=== PATIENT | male | born 2000 | race Two or more races ===

== ENCOUNTER 2024-12-17 11:59 | Emergency (ER) | payer OTHER ==
[~2024-12-17] VITALS: Ht 165.1 cm; Wt 128.0 kg
[2024-12-17 12:08] VITALS: TEMP 98.1
--- NOTE | 2024-12-17 12:39 | ED.PDOC ---
HPI (NEURO) HPI Comments 24 year old male with a Hx of Seizures was BIBA for the c/c of a Seizure. EMS states that pt resides in rehab home and seen by staff having seizure like activity. 5mg Versed given IM by EMS in home, no oral trauma or incontinence noted. Pt has a Hx of Drug use. No other associated symptoms, modifiers, recent injuries or sick contacts present at this time. Chief Complaint: Seizure Time Seen by MD: 12:34 Primary Care Provider: UNKNOWN Reviewed Notes: Nurses Notes, Behavioral Health Professional Notes, Medications, Allergies Information Source: Patient, Emergency Med Personnel Mode of Arrival: EMS Severity: Moderate Headache Severity: Moderate Timing: Minutes Duration: Since onset, Minutes Prehospital treatment: Treatment Seizure Quality: Shaking Headache Quality: Other Headache Location: Generalized Seizure Location: Generalized Onset: At rest Circumstances: Spontaneous Symptoms: Faintness Before: Normal During: Awake After: Confusion History of: Substance abuse Modifying factors: Nothing Associated Signs and Symptoms: None Past Medical History PAST MEDICAL HISTORY: Seizures, Denies Surgical History: Unknown Family History Family History: Unknown Social History Smoker: Non-Smoker Alcohol: Denies ETOH Use Drugs: Denies Drug Use Lives In: Home Constitutional: denies: chills, diaphoresis, fatigue, fever, malaise, sweats, weakness, others EENTM: denies: blurred vision, double vision, ear bleeding, ear discharge, ear drainage, ear pain, ear ringing, eye pain, eye redness, hearing loss, mouth pain, mouth swelling, nasal discharge, nose bleeding, nose congestion, nose pain, photophobia, tearing, throat pain, throat swelling, voice changes, others Respiratory: denies: cough, hemoptysis, orthopnea, SOB at rest, shortness of breath, SOB with excertion, stridor, wheezing, others Cardiovascular: denies: chest pain, dizzy spells, diaphoresis, Dyspnea on exertion, edema, irregular heart beat, left arm pain, lightheadedness, palpitations, PND, syncope, others Gastrointestinal: denies: abdomen distended, abdominal pain, blood streaked bowels, constipated, diarrhea, dysphagia, difficulty swallowing, hematemesis, melena, nausea, poor appetite, poor fluid intake, rectal bleeding, rectal pain, vomiting, others Genitourinary: denies: burning, dysuria, flank pain, frequency, hematuria, incontinence, penile discharge, penile sore, pain, testicle pain, testicle swelling, urgency, others Neurological: reports: seizure; denies: dizziness, fainting, headache, left sided numbness, left sided weakness, numbness, paresthesia, pre-existing deficit, right sided numbness, right sided weakness, speech problems, tingling, tremors, weakness, others Musculoskeletal: denies: back pain, gout, joint pain, joint swelling, muscle pain, muscle stiffness, neck pain, others Integumetry: denies: bruises, change in color, change in hair/nails, dryness, laceration, lesions, lumps, rash, wounds, others Allergic/Immunocompromised: denies: Difficulty Healing, Frequent Infections, Hives, Itching, others Hematologic/Lymphatic: denies: anemia, blood clots, easy bleeding, easy bruising, swollen glands, others Endocrine: denies: excessive hunger, excessive sweating, excessive thirst, excessive urination, flushing, intolerance to cold, intolerance to heat, unexplained weight gain, unexplained weight loss, others Psychiatric: denies: anxiety, bipolar disorder, depression, hopeless, panic disorder, schizophrenia, sleepless, suicidal, others All Other Systems: Reviewed and Negative Physical Exam General Appearance: Moderate Distress, Normal HEENT: Normal ENT Inspection, Pharynx Normal, TMs Normal Neck: Full Range of Motion, Non-Tender, Normal, Normal Inspection Respiratory: Chest Non-Tender, Lungs Clear, No Accessory Muscle Use, No Respiratory Distress, Normal Breath Sounds Cardiovascular: No Edema, No JVD, No Murmur, No Gallop, Normal Peripheral Pulses, Regular Rate/Rhythm Breast Exam: Deferred Gastrointestinal: No Organomegaly, Non Tender, No Pulsatile Mass, Normal Bowel Sounds, Soft Genitalia: Deferred Pelvic: Deferred Rectal: Deferred Extremities: No calf tenderness, Normal capillary refill, Normal inspection, Normal range of motion, Non-tender, No pedal edema Musculoskeletal : Apperance: Normal 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 Was a procedure done?: No Differential Diagnosis (SZ) Seizure: Hyperventilation, Psychogenic Seizure, Alcohol Withdrawl, Closed Head Injury, CVA/TIA, Hypocalcemia, Hypoglycemia, Hyponatremia, Idiopathic, Syncope, Encephalopathy X-Ray, Labs, Meds, VS Vital Signs Date Time Temp Pulse Resp B/P (MAP) Pulse Ox O2 Delivery O2 Flow Rate FiO2 12/17/24 15:00 71 12 151/84 (106) 94 12/17/24 14:00 60 16 132/67 (88) 97 12/17/24 13:00 66 16 95 Room Air* 0 21 12/17/24 12:20 67 15 124/66 (85) 92 12/17/24 12:08 98.1 67 18 110/66 (81) 95 98.1 Lab Test 12/17/24 12:58 Range/Units White Blood Count 6.8 4.4-10.8 10^3/uL Red Blood Count 4.48 L 4.5-5.90 10^6/uL Hemoglobin 13.8 13.5-17.5 g/dL Hematocrit 39.8 L 41.0-53.0 % Mean Corpuscular Volume 89.0 80.0-100.0 fL Mean Corpuscular Hemoglobin 30.8 28.0-32.0 pg Mean Corpuscular Hemoglobin Concent 34.6 32.0-36.0 g/dL Red Cell Distribution Width 15.6 H 11.8-14.3 % Platelet Count 267 140-450 10^3/uL Mean Platelet Volume 8.6 6.9-10.8 fL Neutrophils (%) (Auto) 66.6 37.0-80.0 % Lymphocytes (%) (Auto) 23.0 10.0-50.0 % Monocytes (%) (Auto) 8.1 0.0-12.0 % Eosinophils (%) (Auto) 1.8 0.0-7.0 % Basophils (%) (Auto) 0.5 0.0-2.0 % Neutrophils # (Auto) 4.5 1.6-8.6 10 ^3/uL Lymphocytes # (Auto) 1.6 0.4-5.4 10 ^3/uL Monocytes # (Auto) 0.6 0-1.3 10 ^3/uL Eosinophils # (Auto) 0.1 0-0.8 10 ^3/uL Basophils # (Auto) 0 0-0.2 10 ^3/uL Nucleated Red Blood Cells 0.2 % Sodium Level 141 136-145 mmol/L Potassium Level 3.5 3.5-5.1 mmol/L Chloride Level 104 98-107 mmol/L Carbon Dioxide Level 27 20-31 mmol/L Anion Gap 10 5-15 Blood Urea Nitrogen 8 L 9-23 mg/dL Creatinine 0.51 L 0.700-1.30 mg/dL Glomerular Filtration Rate Calc 144 >90 mL/min BUN/Creatinine Ratio 15.7 10.0-20.0 Serum Glucose 82 74-106 mg/dL Calcium Level 9.8 8.7-10.4 mg/dL Current Medications Medications (Trade) Dose Ordered Sig/Rick Route Start Time Stop Time Status Last Admin Sodium Chloride 1,000 ml @ 1,000 mls/hr Q1H ONCE IV 12/17/24 12:45 12/17/24 13:44 DC 12/17/24 12:54 Patient alert. Was given Versed for seizure. Vitals stable. Establish intravenous access. Was given fluids. WBC within normal limits. Hemoglobin within normal limits. Physical examination pristine after hour visit here. No oral trauma. Physical examination is pristine. No trauma. Explained to the patient. Was told to follow up with his primary care physician. Was told to come back if there is any problem. Time of 1ST Reevaluation: 13:05 Reevaluation 1ST: Unchanged Time of 2ND Reevaluation: 17:46 Reevaluation 2ND: Improved Patient Education/Counseling: Diagnosis, Treatment, Need For Follow Up Family Education/Counseling: No Family Present Departure 1 Departure Time of Disposition: 17:47 Impression: Primary Impression: Metabolic encephalopathy Additional Impression: Seizure Disposition: 01 HOME / SELF CARE / HOMELESS Condition: Good Discharged With: Self Critical Care Note Critical Care Time?: No Stability Stability form required: No Heart Score Heart Score: Heart Score Response (Comments) Value History N/A 0 EKG N/A 0 Age N/A 0 Risk Factors N/A 0 Troponin N/A 0 Total 0 I personally scribed for KENISHA CAROLINA MD ([email or web address]) on 12/17/24 at 12:39. Electronically submitted by Felix Mitchell ([email or web address]). KENISHA CAROLINA MD Dec 17, 2024 12:39
[2024-12-17] MEDS: SODIUM CHLORIDE 0.9% 1,000 ML IV ONE (12:54)
[2024-12-17 13:00] VITALS: PULSE 66; RESP 16; O2SAT 95
[2024-12-17 13:19] LABS: Hematocrit 39.8 % (41.0-53.0); Hemoglobin 13.8 g/dL (13.5-17.5); Mean Corpuscular Hemoglobin 30.8 pg (28.0-32.0); Mean Corpuscular Volume 89.0 fL (80.0-100.0); Nucleated Red Blood Cells % 0.2 %
[2024-12-17 13:30] LABS: Chloride 104 mmol/L (98-107); Potassium 3.5 mmol/L (3.5-5.1); Sodium 141 mmol/L (136-145)
[2024-12-17 13:31] LABS: Anion Gap 10 (5-15); Calcium 9.8 mg/dL (8.7-10.4); Carbon Dioxide 27 mmol/L (20-31)
[2024-12-17 13:36] LABS: BUN/Creatinine Ratio 15.7 (10.0-20.0); Glucose 82 mg/dL (74-106)
[2024-12-17 13:37] LABS: Blood Urea Nitrogen 8 mg/dL (9-23)
[2024-12-17 15:00] VITALS: BP 151/84
[2024-12-17 17:51] VITALS: PULSE 76; RESP 19; O2SAT 95
[2024-12-18] MEDS ORDERED: GAB100C PO (10:43)
[2024-12-18] MEDS ORDERED: ESCI1TAB36 PO (10:43)
[2024-12-18] MEDS ORDERED: DIVA1TAB59 PO (10:43)
[2024-12-18] MEDS ORDERED: QUET50TA27 PO (10:43)
== END 2024-12-17 18:32 | disposition home or self-care (01) ==
LOC: ER 11:59
DX: G93.41 Metabolic encephalopathy (principal); R56.9 Unspecified convulsions
CPT/HCPCS: 36415; 80048; 85025; 96360; 99285; J7030

== ENCOUNTER 2024-12-17 20:59 | Inpatient (IN) | payer OTHER ==
[~2024-12-17] VITALS: Ht 165.1 cm; Wt 117.1 kg
[2024-12-17] MEDS ORDERED: LORazepam 2MG/ML-1ML VIAL IV ONE (21:15)
[2024-12-17] MEDS ORDERED: levETIRAcetam 1000 mg/100ml 100 ML IV ONE (21:15)
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
[2024-12-17 21:37] LABS: Hematocrit 40.8 % (41.0-53.0); Hemoglobin 13.7 g/dL (13.5-17.5); Mean Corpuscular Hemoglobin 30.0 pg (28.0-32.0); Mean Corpuscular Volume 89.1 fL (80.0-100.0); Nucleated Red Blood Cells % 0.0 %
[2024-12-17 21:38] LABS: Chloride 107 mmol/L (98-107); Potassium 3.8 mmol/L (3.5-5.1); Sodium 142 mmol/L (136-145)
[2024-12-17 21:39] LABS: Anion Gap 9 (5-15); Carbon Dioxide 26 mmol/L (20-31)
[2024-12-17 21:40] LABS: Calcium 9.8 mg/dL (8.7-10.4)
[2024-12-17 21:44] LABS: BUN/Creatinine Ratio 15.2 (10.0-20.0); Blood Urea Nitrogen 10 mg/dL (9-23); Glucose 89 mg/dL (74-106)
--- NOTE | 2024-12-17 21:58 | DVH ---
Procedure: CT HEAD WITHOUT CONTRAST Study Date and Requested Time: 12/17/2024 09:24 PM History: recurrent seizures Comparison: None Dose: CTDI: 67.11 mGy DLP: 1322.26 mGycm Technique: Multiplanar images obtained through the brain without intravenous contrast. Findings: Normal brain volume and formation. No hemorrhages, masses, mass effect, midline shift, herniation or cytotoxic edema following a large v ascular territory. No intra-axial or extra-axial fluid collections. No evidence of hydrocephalus. The basal cisterns are patent. The pituitary gland, sella and parasellar regions are unremarkable. The cerebellar tonsils are in nor mal position. The cerebellum is unremarkable. Mild prominence of the superior cerebellar cistern. Pro minent cisterna magnum. The orbits and globes are unremarkable. Mucous retention cyst within the left maxillary sinus. Other byrd, the paranasal sinuses and mastoids are clear. There are no worrisome calvarial lesions. Impression: No evidence of acute intracranial abnormality. If symptoms persist, consider MRI for further evaluati on.
[2024-12-18] VITALS (24 sets, daily range): BP systolic 101–135; BP diastolic 49–86; PULSE 56–152; RESP 16–20; TEMP 97.5–98.5; O2SAT 90–100
[2024-12-18] MEDS ORDERED: DOCUSATE SOD 100 MG CAP PO PRN
[2024-12-18] MEDS ORDERED: MORPHINE SULFATE INJ 2 MG/ml SYRG IV PRN
[2024-12-18] MEDS ORDERED: ACETAMINOPHEN 325 MG TAB PO PRN
[2024-12-18] MEDS ORDERED: LORazepam 2MG/ML-1ML VIAL IV PRN
[2024-12-18] MEDS: SODIUM CHLORIDE 0.9% 1,000 ML IV SCH
[2024-12-18] MEDS ORDERED: ONDANSETRON HCL 4 MG/2 ML VIAL IV PRN
[2024-12-18] MEDS ORDERED: NITROGLYCERIN 0.4 MG SL TAB SL PRN
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
[2024-12-18] MEDS: KETOROLAC TROMETH 30 MG/ML 1ML VIAL IV ONE (01:04)
[2024-12-18 02:47] LABS: Urine Budding Yeast OCCASIONAL /hpf (None Seen); Urine Protein, UAD Negative (Negative)
[2024-12-18 03:14] LABS: Amphetamine Screen, Urine Neg (NEGATIVE); Barbiturate Scree,Urine Neg (NEGATIVE); Benzodiazephine Screen, Urine Pos (NEGATIVE); Cannabinoid Screen, Urine Neg (NEGATIVE); Cocaine Screen, Urine Neg (NEGATIVE); Opiate Scree,Urine Neg (NEGATIVE); Phencyclidine Screen, Urine Neg (NEGATIVE)
[2024-12-18] MEDS: HYDROcodone-ACET 5/325MG TAB PO PRN (04:26)
--- NOTE | 2024-12-18 06:39 | ECG ---
[facility] Test Date: 2024-12-17 Test Time: 21:10:06 Pat Name: MK ACEVEDO Department: ED Room: [address] [place] [address] Gender: M Sales Intern: LESVIA : 2000 Requested By: EFRA STEWARD Order Number: [id number] Reading MD: Chuck Guthrie Measurements Intervals [place] Rate: 83 P: 78 UT: 157 QRS: 23 QRSD: 84 T: -7 QT: 374 QTc: 440 Interpretive Statements Sinus rhythm LVH by voltage Electronically Signed On 12-23-2024 18:19:33 PDT by Chuck Guthrie Please click the below link to view image of tracing.
[2024-12-18 07:47] LABS: Hematocrit 38.7 % (41.0-53.0); Hemoglobin 13.4 g/dL (13.5-17.5); Mean Corpuscular Hemoglobin 31.0 pg (28.0-32.0); Mean Corpuscular Volume 89.3 fL (80.0-100.0); Nucleated Red Blood Cells % 0.1 %
[2024-12-18 07:53] LABS: Alanine Aminotransferase 38 U/L (7-40); Albumin 4.2 g/dL (3.2-4.8); Alkaline Phosphatase 90 U/L (46-116); Anion Gap 10 (5-15); BUN/Creatinine Ratio 19.4 (10.0-20.0); Bilirubin, Total 0.6 mg/dL (0.2-1.0); Blood Urea Nitrogen 13 mg/dL (9-23); Calcium 10.0 mg/dL (8.7-10.4); Carbon Dioxide 28 mmol/L (20-31); Chloride 106 mmol/L (98-107); Glucose 75 mg/dL (74-106); Potassium 3.8 mmol/L (3.5-5.1); Sodium 144 mmol/L (136-145); Total Protein 6.9 g/dL (5.7-8.2)
[2024-12-18] MEDS: levETIRAcetam 500 mg/100ml 100 ML IV SCH (10:09)
[2024-12-18] MEDS: LORazepam 2MG/ML-1ML VIAL IV PRN (10:25)
[2024-12-18] MEDS ORDERED: ESCI1TAB36 PO (10:43)
[2024-12-18] MEDS ORDERED: DIVA1TAB59 PO (10:43)
[2024-12-18] MEDS ORDERED: QUET50TA27 PO (10:43)
[2024-12-18] MEDS ORDERED: GAB100C PO (10:43)
[2024-12-18] MEDS: levETIRAcetam 1000 mg/100ml 100 ML IV ONE ×5 (11:03→16:27)
[2024-12-18] MEDS: LORazepam 2MG/ML-1ML VIAL ONE ×2 (11:07→18:20)
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
--- NOTE | 2024-12-18 15:47 | DVHINCON2 ---
Neuro Consultation Date of Consultation Date: 12/18/24 History of Present Illness History of Present Illness: [place] Neuro Note # Demographics Consult Type: General Neurology Patient Location: Inpatient First Name: Shane Last Name: Vicky Date of : 2000 Age: 24 Gender: Male Facility: [facility] Time of Initial Page (): 12/18/2024 15:27 Time of Return Call ( Time): 12/18/2024 15:27 # HPI History: 24yom with seizures who p/w recurrent seizures. Had 2 seizures around 10AM and just had another one. Currently pending another Keppra load. On exam, he is doing jerking on R arm. Then, afterwards, had another generalized seizure. # Exam Time of Exam (): 12/18/2024 15:34 Mental Status: - awake slightly disoriented to year, said 2023 Cranial Nerves: - extra ocular movements intact - normal Motor: - normal strength Sensory: - normal sensation # Assessment Impression: Status Epilepticus # Plan Labs: - CBC - comprehensive metabolic panel - urine drug screen - ua -Magnesium -Serum anti-seizure drug levels Imaging: (urgency: STAT): - CT Head without contrast Imaging: (urgency: routine): - MRI Brain with AND without contrast -CXR Diagnostic Test: - EEG Transfer for cEEG Medication: Initial Therapy Phase: 5-10 minutes Immediately give Lorazepam 0.1 mg/kg/dose (usually 4 mg IV over 2 mins) may repeat once in 5-10 min --- If no IV line available, then Midazolam 10 mg IM Start one of the following: - Fosphenytoin 20 mg/kg IV (max rate 150 mg/min) --- may re bolus with 10 mg PE/kg IV as needed - OR Keppra 60 mg/kg IV(max 4500 mg/dose) - OR Valproic acid 40 mg/kg IV (max 3000 mg/dose; max rate 6 mg/kg/min) (Second phase) ~10-30 minutes If seizure does not stop, start one of the following (whichever was not given previously): - Fosphenytoin 20 mg/kg IV (max rate 150 mg/min) --- may re-bolus with 10 mg PE/kg IV as needed - OR Keppra 60 mg/kg (max 4500 mg/dose) - OR Valproic acid 40 mg/kg (max 3000 mg/dose; max rate 6 mg/kg/min) - OR Vimpat 400 mg IV once over 5 min - OR Phenobarbital 20 mg/kg IV (max rate 50-75 mg/min) (Third Phase): ~ 30-60 mins Intubate and start continuous IV anesthetic with either of the following: - Midazolam~ Load 0.2mg/kg IV (max load 2mg/kg) --- Maintenance infusion 0.1- 2 mg/kg/hr - OR Propofol~ Load 1-2mg/kg IV (max load 10mg/kg) --- Maintenance infusion 2-5mg/kg/hr (< 5 mg/kg/hr if transfusing > 48hrs to avoid propofol infusion syndrome) Other: - If patient has any neurological deterioration please call me back immediately - seizure precautions - I have discussed my recommendations with the referring provider Additional Recommendations: Additional recommendations: - Fingerstick blood glucose: glucose <60 mg/dl, give 100 mg thiamine IV, then 50 ml D50W IV - Blood work: CBC, CMP, Mg, Phos, toxicology screen, anticonvulsant drug levels - Maintain NL electrolytes, euglycemia, normothermia - Avoid medications that reduce seizure threshold - Seizure precautions Disposition: admit # Logistics Attestation of consult completion: The patient is located at: [facility]. Facility staff participated in the visit. I performed this telemedicine visit from my offsite office utilizing interactive 2 way audio and visual telecommunication technology. Total time spent in telemedicine encounter: I spent 23 minutes reviewing clinical data and/or imaging, obtaining history, examining the patient, communicating with the onsite care team, and in preparation of this report. # Demographics First Name: Shane Last Name: Vicky Facility: [facility] Review of Systems Review of Systems: Review of Systems: 12 point review of systems is negative unless stated in HPI. Social History Social History: Social History: Denies alcohol, tobacco, and/or ellicit drug usage. Work - Living situation - Use of ambulatory devices - Allergies and Medications Allergies: Coded Allergies: NO KNOWN ALLERGIES (Unverified , 12/17/24) Home Meds: Reported Medications Gabapentin (Gabapentin) 100 Mg Cap, PO 12/18/24 Divalproex Sodium (Divalproex Sodium Dr) 500 Mg Tab, 1 TAB PO DAILY 12/18/24 Quetiapine Fumerate (QUETIAPINE FUMARATE) 50 Mg Tab, 1 TAB PO DAILY 12/18/24 Escitalopram Oxalate (ESCITALOPRAM OXALATE) 10 Mg Tab, 1 TAB PO DAILY 12/18/24 Current Medications: Current Medications Medications (Trade) Dose Ordered Sig/Rick Route PRN Reason Start Time Stop Time Status Last Admin Sodium Chloride 1,000 ml @ 60 mls/hr [id number] IV 12/18/24 00:00 12/18/24 00:00 Acetaminophen/ Hydrocodone Bitart ([place] 5/325MG Tab) 1 tab Q4HP PRN PO MODERATE PAIN (4-6 PAIN SCALE) 12/18/24 00:00 12/18/24 04:26 Ondansetron HCl (Zofran) 4 mg Q4HP PRN IV NAUSEA / VOMITING 12/18/24 00:00 Docusate Sodium (Colace Capsule) 100 mg BIDPRN PRN PO FOR CONSTIPATION 12/18/24 00:00 Acetaminophen (Tylenol Tablet) 650 mg Q6HP PRN PO PAIN SCALE 1-3 OR TEMP>100.4 12/18/24 00:00 Nitroglycerin (Ntrostat Sublingual) 0.4 mg Q5MINP PRN SL FOR CHEST PAIN 12/18/24 00:00 Morphine Sulfate 2 mg Q30M PRN IV FOR CHEST PAIN 12/18/24 00:00 Levetiracetam 100 ml @ 400 mls/hr BID IV 12/18/24 10:00 12/18/24 10:50 DC 12/18/24 10:09 Lorazepam (Ativan Inj) 1 mg Q2HP PRN IV SEIZURES 12/18/24 00:00 12/18/24 10:57 DC Levetiracetam 100 ml @ 400 mls/hr BID IV 12/18/24 22:00 12/18/24 10:49 DC Levetiracetam 100 ml @ 400 mls/hr BID IV 12/18/24 22:00 Lorazepam (Ativan Inj) 1 mg Q5MINP PRN IV SEIZURES 12/18/24 11:00 12/18/24 10:55 General Examination Last Vital sign Vital Signs Date Time Temp Pulse Resp B/P (MAP) Pulse Ox O2 Delivery O2 Flow Rate FiO2 12/18/24 12:30 97.9 61 17 116/52 (73) 97 97.9 12/18/24 08:30 Room Air* 0 21 General Exam: General Examination: General: No apparent distress, appears comfortable. Cooperative HEENT: Normocephalic, atraumatic. Supple neck. No oropharynx lesion or exudate noted. Extremities: No noted edema or cyanosis Skin: No noted rashes or jaundice. Neuro Exam: Neurological Examination: Mental Status: Alert and oriented to person, place, and time. Speech is fluent. No dysarthria or aphasia noted. Cranial Nerves: Pupils equally round and reactive to light. Fundoscopic examination showed sharp optic discs. Visual carrero intact. No dysconjugate gaze. Extraocular movements were intact. No ptosis on primary gaze or fatiguable ptosis was noted. Sensation intact in V1-V3 bilaterally. No facial asymmetry with symmetrical brow raise, smile, and puffing out cheeks. Hearing intact to finger rub bilaterally. Tongue midline with symmetrical palate elevation. No tongue atrophy or fasciculations noted. Intact shoulder shrug. Motor examination: Normal bulk and tone in the bilateral upper and lower extremities. No abnormal movements appreciated. Upper Extremities (Right/Left) Infraspinatus 5/5 Deltoid 5/5 Biceps 5/5 Triceps 5/5 Wrist Extension 5/5 Wrist Flexion 5/5 Finger Extension 5/5 Finger Flexion 5/5 Interosseous 5/5 ABP 5/5 Lower Extremities (Right/Left) Iliopsoas 5/5 Quadriceps 5/5 Hamstrings 5/5 Tibialis anterior 5/5 Gastrocnemius 5/5 Toe Extension 5/5 Reflexes: Jaw Jerk absent Pectoralis absent/absent Biceps 2/2 Triceps 2/2 Brachioradialis 2/2 Patellar 2/2 Ankle 2/2 Babinski's Down/Down Sensory: Upper Extremity - Intact to light touch, pinprick, vibration, and joint position. Lower Extremity - Intact to light touch, pinprick, vibration, and joint position. Coordination: Intact finger to nose and [id number] bilaterally. No dysmetria noted. Negative Romberg's. Gait: Normal stride and stance. Able to perform heel, toe, and heel-to-toe walking without difficulty. Able to squat and get up from a chair unassisted without difficulty. Labs: Laboratory Tests Test 12/17/24 21:15 12/17/24 22:08 12/17/24 23:14 12/18/24 06:07 Range/Units White Blood Count 7.0 7.3 4.4-10.8 10^3/uL Red Blood Count 4.58 4.33 L 4.5-5.90 10^6/uL Hemoglobin 13.7 13.4 L 13.5-17.5 g/dL Hematocrit 40.8 L 38.7 L 41.0-53.0 % Mean Corpuscular Volume 89.1 89.3 80.0-100.0 fL Mean Corpuscular Hemoglobin 30.0 31.0 28.0-32.0 pg Mean Corpuscular Hemoglobin Concent 33.7 34.7 32.0-36.0 g/dL Red Cell Distribution Width 15.5 H 15.5 H 11.8-14.3 % Platelet Count 279 252 140-450 10^3/uL Mean Platelet Volume 8.7 8.9 6.9-10.8 fL Neutrophils (%) (Auto) 59.9 57.6 37.0-80.0 % Lymphocytes (%) (Auto) 27.7 29.9 10.0-50.0 % Monocytes (%) (Auto) 8.4 9.5 0.0-12.0 % Eosinophils (%) (Auto) 3.1 2.5 0.0-7.0 % Basophils (%) (Auto) 0.9 0.5 0.0-2.0 % Neutrophils # (Auto) 4.2 4.2 1.6-8.6 10 ^3/uL Lymphocytes # (Auto) 1.9 2.2 0.4-5.4 10 ^3/uL Monocytes # (Auto) 0.6 0.7 0-1.3 10 ^3/uL Eosinophils # (Auto) 0.2 0.2 0-0.8 10 ^3/uL Basophils # (Auto) 0.1 0 0-0.2 10 ^3/uL Nucleated Red Blood Cells 0.0 0.1 % Sodium Level 142 144 136-145 mmol/L Potassium Level 3.8 3.8 3.5-5.1 mmol/L Chloride Level 107 106 98-107 mmol/L Carbon Dioxide Level 26 28 20-31 mmol/L Anion Gap 9 10 5-15 Blood Urea Nitrogen 10 13 9-23 mg/dL Creatinine 0.66 L 0.67 L 0.700-1.30 mg/dL Glomerular Filtration Rate Calc 133 133 >90 mL/min BUN/Creatinine Ratio 15.2 19.4 10.0-20.0 Serum Glucose 89 75 74-106 mg/dL Calcium Level 9.8 10.0 8.7-10.4 mg/dL Troponin I High Sensitivity < 3 L < 3 L </=54 ng/L Valproic Acid Level 22.1 L 50-100 ug/mL Plasma/Serum Blood Alcohol < 3.0 <10 mg/dL Urine Color Light-yellow Yellow Urine Clarity Clear Clear Urine pH 6.5 5.0-9.0 Urine Specific [place] 1.024 1.001-1.035 Urine Protein Negative Negative Urine Ketones Trace Negative Urine Blood Negative Negative /uL Urine Nitrite Negative Negative Urine Bilirubin Negative Negative Urine Urobilinogen Normal Negative mg/dL Urine Leukocyte Esterase Negative Negative /uL Urine RBC 1 0 - 3 /hpf Urine Microscopic WBC < 1 0-3 /HPF Urine Squamous Epithelial Cells Few <5 /hpf Urine Bacteria None seen None Seen /hpf Urine Yeast (Budding) Occasional None Seen /hpf Urine Glucose Normal Normal mg/dL Urine Opiates Screen Neg NEGATIVE Urine Fentanyl Screen Neg NEGATIVE Urine Barbiturates Screen Neg NEGATIVE Urine Phencyclidine Screen Neg NEGATIVE Urine Amphetamines Screen Neg NEGATIVE Urine Benzodiazepines Screen Pos NEGATIVE Urine Cocaine Screen Neg NEGATIVE Urine Cannabinoids Screen Neg NEGATIVE Total Bilirubin 0.6 0.2-1.0 mg/dL Aspartate Amino Transferase (AST) 18 13-40 U/L Alanine Aminotransferase (ALT) 38 7-40 U/L Alkaline Phosphatase 90 46-116 U/L Total Protein 6.9 5.7-8.2 g/dL Albumin 4.2 3.2-4.8 g/dL Hepatitis B Surface Antigen Pending Hepatitis C Antibody Pending Test 12/18/24 10:39 12/18/24 10:55 12/18/24 15:19 12/18/24 15:29 Range/Units POC Glucose 92 100 70-106 mg/dl Prolactin Pending Pending Sodium Level Pending Potassium Level Pending Chloride Level Pending Carbon Dioxide Level Pending Anion Gap Pending Blood Urea Nitrogen Pending Creatinine Pending Glomerular Filtration Rate Calc Pending BUN/Creatinine Ratio Pending Serum Glucose Pending Calcium Level Pending Phosphorus Level Pending Total Bilirubin Pending Aspartate Amino Transferase (AST) Pending Alanine Aminotransferase (ALT) Pending Alkaline Phosphatase Pending Lactate Dehydrogenase Pending Creatine Kinase Pending Total Protein Pending Albumin Pending Assessment/Plan Assessment and Plan:Shane Perry is a 24 year old male who presents with Plan discussed with: Patient VINCENZO WHITMAN MD Dec 18, 2024 15:47
[2024-12-18 15:58] LABS: Alanine Aminotransferase 39 U/L (7-40); Alkaline Phosphatase 98 U/L (46-116); Calcium 10.0 mg/dL (8.7-10.4)
[2024-12-18 15:59] LABS: Albumin 4.2 g/dL (3.2-4.8); Anion Gap 8 (5-15); BUN/Creatinine Ratio 16.9 (10.0-20.0); Bilirubin, Total 0.6 mg/dL (0.2-1.0); Blood Urea Nitrogen 11 mg/dL (9-23); Carbon Dioxide 26 mmol/L (20-31); Creatine Kinase IFCC 171 U/L (46-171); Glucose 76 mg/dL (74-106); Potassium 4.1 mmol/L (3.5-5.1); Sodium 142 mmol/L (136-145); Total Protein 7.0 g/dL (5.7-8.2)
[2024-12-18 16:05] LABS: Chloride 108 mmol/L (98-107)
[2024-12-18] MEDS: ETOMIDATE (2MG/ML) 20ML VIAL IV ONE (18:10)
[2024-12-18] MEDS: ROCURONIUM 10MG/ML 10ML VIAL IV ONE (18:11)
[2024-12-18] MEDS: MIDAZOLAM DRIP 50 mg/50mL 50 ML IV ONE ×2 (18:21→19:30)
[2024-12-18] MEDS: PROPOFOL 100 ML IV ONE (18:21)
[2024-12-18] MEDS: fentaNYL Drip 2500mCg/250mlNS 250 ML IV ONE (18:21)
[2024-12-18] MEDS: NOREPINEPHRINE 8 MG/250ML KIT 250 ML IV ONE (18:29)
--- NOTE | 2024-12-18 18:36 | DVHNC2 ---
Intubation Indication: Altered Mental Status, Airway Protection Prep: Preoxygenation Pretreated with: Sedation, Other Medicated with: Other Intubation Approach: Orotracheal Intubation size: cm (8) Informed consent obtained: No Risks/benefits/alt described: No Notes Procedure: Endotracheal Intubation INDICATION: Compromised airway, status epilepticus Physician: Rony Luz MD CONSENT: Emergent procedure. Implied. PROCEDURE SUMMARY: A time out was performed. My hands were washed immediately prior to the procedure. I wore a surgical cap, mask with protective eyewear, gown and gloves throughout the procedure. The patient was placed on a millwork estimator including continuous pulse oximetry. The patient received 20mg Etomidate and 50mg rocuronium for induction. Cricoid pressure was maintained from time induction agent was given to time of cuff balloon inflation. Using a MAC 4 Laryngoscope and a size 8.0 endotracheal tube with stylet, the patient was intubated on the 1 attempt. The stylet was removed and cuff balloon was inflated. Appropriate endotracheal tube position was confirmed by direct visualization of vocal cord passage, fogging of the tube, CO2 colometric indicator and symmetric breath sounds. The tube was secured at 25 cm at the lips. Post intubation chest x-ray is demonstrates the ETT approximately 4 cm above the rogers. intubated due to concern for status epilepticus despite multiple ativans push and keppra load 3.5 gram. no return to baseline for ~45min etom 40 peggy 100 intubated with video glidoscope inserted etienne 25cm only 1-2min from rogers, pull back to 22cm 8cm tube no bleeding or complications CPT Code: 65200 Date of Service: Dec 18, 2024 Billing Provider: RONY YE MD Common Visit Codes: PROCEDURE ONLY Procedure Codes: [id number] RONY YE MD Dec 18, 2024 18:36
[2024-12-18] MEDS: PROPOFOL 10 MG/ML 20 ML IV ONE (18:45)
--- NOTE | 2024-12-18 19:51 | DVH ---
EXAM: XY CHEST PORTABLE HISTORY: s/p intubation TECHNIQUE: 1 view of the chest COMPARISON: None FINDINGS/IMPRESSION: LUNGS: Low lung volumes, which cause crowding of the bronchovascular markings. In greatest interstiti al markings with elevation of the right hemidiaphragm. Correlate for underlying infiltrate versus vo lume overload. MEDIASTINUM: Unremarkable BONES: No acute osseous abnormality OTHER: Endotracheal tube 0.7 cm above the rogers. Nasogastric tube in the proximal stomach.
[2024-12-18] MEDS: fentaNYL Drip 2500mCg/250mlNS 250 ML IV SCH (20:27)
[2024-12-18] MEDS: NOREPINEPHRINE 8 MG/250ML KIT 250 ML IV SCH (20:27)
--- NOTE | 2024-12-18 20:55 | DVHNC2 ---
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 of animal killer (Yane Reynolds) Indication: Hypotension, CVP monitoring, Volume resuscitation Room prepared for procedure: Yes Product Management Analyst performed hand hygien: Yes Maximal sterile barrier precau: Mask/Eye shield, Sterile gown, Cap, Sterlie gloves, Large sterlie drape Skin Preparation: Chlorhexidine gluconate, Providine iodine Skin preparation completely dr: Yes Insertion site: Right, Internal jugular Central line catheter type: Ktr-[id number]-sot dialysis Number of lumens: 3 Central line exchanged over a: No Antiseptic ointment applied to: Yes Post Assessment: Chest X-Ray, No Pneumothorax Informed consent obtained: Yes Notes A time out was performed. My hands were washed immediately prior to the proce dure. I wore a surgical cap, mask with protective eyewear, full gown and sterile gloves throughout the procedure. The patient was placed in Trendelenburg position. LEFT / RIGHT chest region was prepped using chlorhexidine scrub and draped in sterile fashion using a full drape and sterile probe cover and sterile gel employed. The medial and lateral heads of the sternocleidomastoid muscle were identified as was the carotid pulse. The Internal Jugular vein was identified using the ultrasound. Anesthesia was achieved over the vein using 1% lidocaine. Using real-time out of plane guidance, the introducer needle was inserted into the Internal Jugular vein under direct ultrasound visualization. Venous blood was withdrawn. The syringe was removed and a guidewire was advanced into the introducer needle. The guidewire was visualized in the Internal Jugular Vein by ultrasound. A small incision was made at the skin surface with a scalpel and the introducer needle was exchanged for a dilator over the guidewire. After appropriate dilation was obtained, the dilator was exchanged over the wire for a rt central venous catheter. The wire was removed and the catheter was sutured in place at [address] A sterile sorbaview shield was placed over the catheter at the insertion site. The patient tolerated the procedure without any hemodynamic compromise. At time of procedure completion, all ports aspirated and flushed properly. Post-procedure chest x-ray is pending at this time. Estimated blood loss is less than [address] Luz Date of Service: Dec 18, 2024 Billing Provider: RONY YE MD Common Visit Codes: PROCEDURE ONLY Procedure Codes: [id number] NON-TUNNEL CV CATH YANE REYNOLDS Dec 18, 2024 20:55 RONY YE MD Jan 12, 2025 22:11
--- NOTE | 2024-12-18 21:13 | DVH ---
EXAM: XY CHEST PORTABLE CLINICAL HISTORY: CENTRAL LINE PLACEMENT TECHNIQUE: Single AP view of the chest WID: COMPARISON: XY CHEST PORTABLE on DOS: 12/18/24 FINDINGS: Lines and tubes: Endotracheal tube projects 3.9 cm above the rogers. Gastric tube in place with the t ip projecting over the gastric fundus. Right IJ central venous catheter with the tip projecting over the right atrium. Chest: The heart size and pulmonary vasculature is within normal limits. Linear patchy airspace opacities in the jleah-hvbovdg-svkl-left lungs. Limited depth of inspiration. No pneumothorax. The right costophrenic angle is not entirely included in the field of view. The osseous structures are grossly intact. IMPRESSION: Right IJ central venous catheter in place with the tip projecting over the right atrium. Endotracheal and gastric tubes remain in place. Linear patchy airspace opacities in the gjruh-ptxbvih-mhcl-left lungs which could reflect subsegmenta l atelectasis
[2024-12-18] MEDS: levETIRAcetam 1500 mg/100ml 100 ML IV SCH (21:14)
[2024-12-18] MEDS: PROPOFOL 100 ML IV SCH (21:14)
[2024-12-18 21:19] LABS: Base Excess -0.5 mmol/L (-2.0-3.0)
[2024-12-18] MEDS: MIDAZOLAM DRIP 50 mg/50mL 50 ML IV SCH (21:26)
[2024-12-18] MEDS ORDERED: levETIRAcetam 1500 mg/100ml 100 ML IV SCH (22:00)
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
[2024-12-19] VITALS (109 sets, daily range): BP systolic 97–135; BP diastolic 38–86; PULSE 52–87; RESP 13–20; TEMP 97.3–99; O2SAT 93–100
[2024-12-19 04:00] LABS: Hematocrit 37.0 % (41.0-53.0); Hemoglobin 12.7 g/dL (13.5-17.5); Mean Corpuscular Hemoglobin 30.7 pg (28.0-32.0); Mean Corpuscular Volume 89.2 fL (80.0-100.0); Nucleated Red Blood Cells % 0.2 %
[2024-12-19 04:13] LABS: Anion Gap 10 (5-15); Carbon Dioxide 27 mmol/L (20-31)
[2024-12-19 04:14] LABS: Calcium 8.9 mg/dL (8.7-10.4)
[2024-12-19 04:18] LABS: BUN/Creatinine Ratio 17.8 (10.0-20.0); Glucose 88 mg/dL (74-106)
[2024-12-19 04:20] LABS: Blood Urea Nitrogen 8 mg/dL (9-23); Chloride 109 mmol/L (98-107); Potassium 3.4 mmol/L (3.5-5.1); Sodium 146 mmol/L (136-145)
[2024-12-19 06:05] LABS: Base Excess 1.6 mmol/L (-2.0-3.0)
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
[2024-12-19] MEDS ORDERED: TPN PER PHARMACY 0 ML IV SCH (10:00)
--- NOTE | 2024-12-19 10:14 | CONS ---
Pharmacy Clinical Information: Na = 146, Cl = 109, serum glucose = 88 Consider changing IVF from NS to D5W CLAUDIA IRAHETA PHARMACIST Dec 19, 2024 10:14
[2024-12-19 10:23] LABS: Magnesium 2.0 mg/dL (1.6-2.6)
[2024-12-19 10:24] LABS: Triglycerides 440.0 mg/dL (< 150)
[2024-12-19 10:25] LABS: Albumin 3.8 g/dL (3.2-4.8); Bilirubin, Total 0.6 mg/dL (0.2-1.0)
--- NOTE | 2024-12-19 10:51 | DVH ---
XY CHEST PORTABLE, HISTORY: acute respiratory failure COMPARISON: XY CHEST PORTABLE on DOS: 12/18/24, XY CHEST PORTABLE on DOS: 12/18/24 XY CHEST PORTABLE on DOS: 12/18/24, XY CHEST PORTABLE on DOS: 12/18/24 TECHNICAL DATA: 1 view of the chest was obtained. FINDINGS: Lines and tubes: ET in the mid thoracic trachea, NG in the stomach, Right CVC in the RA. Cardiomediastinal silhouette: normal Pulmonary vasculature: normal Lung expansion: Low Lung airspace: normal Lung interstitium: normal Pleura: normal Pneumothorax: no Bones: Unremarkable Other: no IMPRESSION: Hypoexpanded lungs with similar lung aeration. ET in the mid thoracic trachea, NG in the stomach, Right CVC in the RA.
[2024-12-19] MEDS ORDERED: LISI10TA34 PO (13:08)
[2024-12-19] MEDS: ACCU-CHEK COMFORT CURVE STRIP VI SCH (13:08)
[2024-12-19] MEDS: InsuLIN REG 1unit/0.01ml Soln (100units/ml) SC SCH (13:08)
[2024-12-19] MEDS: POTASSIUM CHL 20MEQ/100ML 100 ML IV ONE (13:13)
[2024-12-19 13:15] LABS: Potassium 3.8 mmol/L (3.5-5.1)
[2024-12-19 13:16] LABS: Anion Gap 9 (5-15); Calcium 9.5 mg/dL (8.7-10.4); Carbon Dioxide 24 mmol/L (20-31)
[2024-12-19 13:21] LABS: BUN/Creatinine Ratio 14.5 (10.0-20.0); Glucose 88 mg/dL (74-106)
[2024-12-19 13:24] LABS: Blood Urea Nitrogen 8 mg/dL (9-23); Chloride 112 mmol/L (98-107); Sodium 145 mmol/L (136-145)
[2024-12-19] MEDS: NOREPINEPHRINE 8 MG/250ML KIT 250 ML IV SCH (13:54)
[2024-12-19] MEDS: ALBUTEROL SULF 2.5 MG/0.5ML(0.5%) NEB SOLN NEB SCH (18:20)
[2024-12-19] MEDS: IPRATROPIUM BROM 0.5 MG/2.5ML INH SOL NEB SCH (18:20)
[2024-12-19] MEDS: TPN PER PHARMACY IV NR (21:18)
[2024-12-20] VITALS (102 sets, daily range): BP systolic 88–128; BP diastolic 43–69; PULSE 71–116; RESP 15–30; TEMP 98.4–101.1; O2SAT 90–100
[2024-12-20 04:20] LABS: Albumin 3.6 g/dL (3.2-4.8); Anion Gap 9 (5-15); BUN/Creatinine Ratio 13.1 (10.0-20.0); Carbon Dioxide 27 mmol/L (20-31); Glucose 102 mg/dL (74-106); Magnesium 2.0 mg/dL (1.6-2.6); Potassium 3.5 mmol/L (3.5-5.1); Sodium 145 mmol/L (136-145); Total Protein 6.1 g/dL (5.7-8.2)
[2024-12-20 04:21] LABS: Bilirubin, Total 0.7 mg/dL (0.2-1.0)
[2024-12-20 04:23] LABS: Hematocrit 36.2 % (41.0-53.0); Hemoglobin 12.4 g/dL (13.5-17.5); Mean Corpuscular Hemoglobin 30.9 pg (28.0-32.0); Mean Corpuscular Volume 90.4 fL (80.0-100.0); Nucleated Red Blood Cells % 0.1 %
[2024-12-20 04:40] LABS: Alanine Aminotransferase 45 U/L (7-40); Alkaline Phosphatase 143 U/L (46-116); Blood Urea Nitrogen 8 mg/dL (9-23); Calcium 8.5 mg/dL (8.7-10.4); Chloride 109 mmol/L (98-107)
--- NOTE | 2024-12-20 04:57 | DVHPN2 ---
Progress Note - Dictate Date Seen: Dec 19, 2024 Medical Necessity Reason Pt with a Central, PICC or Fol: Yes The following are medically ne: Reed Catheter Reason for reed catheter: Strict I&O Subjective Patient seen and examined at bedside. Sedated, intubated on mechanical ventilator. Overnight events reviewed. vital signs Vital Sign Date Time Temp Pulse Resp B/P (MAP) Pulse Ox O2 Delivery O2 Flow Rate FiO2 12/20/24 04:17 86 18 105/49 (67) 97 35 12/20/24 04:00 Mechanical Ventilator+ 12/20/24 02:45 99.0 210.2 12/18/24 08:30 0 Total Intake and Output 12/19/24 12/19/24 12/20/24 15:00 23:00 07:00 Intake Total 849.984 ml 1119.984 ml 779.992 ml Output Total 750 ml Balance 849.984 ml 369.984 ml 779.992 ml medications Current Medications Medications Dose Ordered Sig/Rick Route Start Time Stop Time Status Last Admin Dose Admin Sodium Chloride 1,000 ml @ 60 mls/hr [id number] IV 12/18/24 00:00 12/20/24 02:41 60 MLS/HR Acetaminophen/ Hydrocodone Bitart 1 tab Q4HP PRN PO 12/18/24 00:00 12/18/24 04:26 1 TAB Ondansetron HCl 4 mg Q4HP PRN IV 12/18/24 00:00 Docusate Sodium 100 mg BIDPRN PRN PO 12/18/24 00:00 Acetaminophen 650 mg Q6HP PRN PO 12/18/24 00:00 Nitroglycerin 0.4 mg Q5MINP PRN SL 12/18/24 00:00 Morphine Sulfate 2 mg Q30M PRN IV 12/18/24 00:00 Levetiracetam 100 ml @ 400 mls/hr BID IV 12/18/24 22:00 12/19/24 21:15 400 MLS/HR Lorazepam 1 mg Q5MINP PRN IV 12/18/24 11:00 12/18/24 17:40 1 MG Propofol 100 ml @ 3.906 mls/ hr Q24H IV 12/18/24 18:15 12/20/24 03:27 31.248 MLS/HR Midazolam HCl 50 ml @ 1 mls/hr Q24H IV 12/18/24 21:15 12/20/24 03:27 15 MLS/HR Fentanyl Citrate 250 ml @ 2.5 mls/hr Q24H IV 12/18/24 23:15 12/19/24 23:07 25 MLS/HR Amino Acids 0 ml @ 0 mls/hr PER PHARMACY IV 12/19/24 10:00 Diagnostic Test (Pha) 1 strip Q6HR 12/19/24 12:00 12/19/24 23:08 1 STRIP Insulin Human Regular FOLLOW SLIDING SCALE Q6HR SC 12/19/24 12:00 Dextrose 50 ml UD IV 12/19/24 10:00 Potassium Chloride 20 meq/ Potassium Phosphate 22 meq/ Calcium Gluconate 2.3 meq/Magnesium Sulfate 8 meq/ Multivitamins 10 ml/Chromium/ Copper/Manganese/ Zinc 1 ml/Amino Acids/Dextrose/ Purified Water 1,432.9462 ml @ 60 mls/hr [id number] IV 12/19/24 22:00 12/20/24 21:59 12/19/24 21:18 60 MLS/HR Albuterol 2.5 mg Q6HR NEB 12/19/24 18:00 12/20/24 00:27 2.5 MG Ipratropium [place] 0.5 mg Q6HR NEB 12/19/24 18:00 12/20/24 00:27 0.5 MG Norepinephrine Bitartrate 250 ml @ 3.75 mls/hr Q24H IV 12/19/24 13:30 12/20/24 02:41 3.75 MLS/HR objective Gen.: Patient lying in bed in medical ICU. Sedated, intubated on mechanical ventilator. Head: Normocephalic, atraumatic. Eyes: PERRLA. Ears: Normal external anatomy. Throat: Endotracheal tube and orogastric tube in place. Neck: Supple, trachea midline. Chest: Transmitted breath sounds bilaterally. Decreased air entry bilaterally. No wheezing. Bibasilar crackles. Cardiovascular: Positive S1, positive S2. Regular rate and rhythm. Abdomen: Positive bowel sounds in all 4 quadrants. Soft, nontender, nondistended. : Reed in place. Normal external genitalia. Rectal: Deferred. Skin: Warm, dry. Intact. Extremities: 2+ radial pulses bilaterally. No lower extremity edema. Neuro: Sedated. laboratory and microbiology Laboratory Tests 12/20/24 03:15 12/20/24 03:10 Test 12/20/24 03:10 Range/Units Serum Glucose 102 74-106 mg/dL Assessment/Plan Impression: Acute hypoxic respiratory failure On mechanical ventilator Seizures Morbid obesity, BMI 49.2 Plan: s/p intubation on mechanical ventilator. CXR image and report reviewed. Devices in place. Hypoexpansion of lungs noted. ABG reviewed, notable for alkalemia. Taper RR to 18. On AC mode; RR 20 -->18, VT 550, PEEP 5, FiO2 100% Titrate FIO2 to keep O2 saturation above 90%. VAP bundle. Daily ABG and CXR while intubated Sedate for ventilator synchrony - on Fentanyl, Versed, Propofol. Start bronchodilators q.6 hours. Antiepileptic - Keppra Follow up Neurology recs On pressors for hemodynamic support Levophed at 2 mcg/min Titrate to keep mean arterial pressure greater than 65 mmHg. Monitor renal function Monitor electrolytes. Supplement as necessary. Monitor ins and outs. Potassium supplementation, magnesium at goal Maintain euvolemia. Diet and lifestyle modifications for weight reduction Morbid obesity - complicates all care GI prophylaxis. DVT prophylaxis. Prognosis: Poor given patient's multiple co-morbidities. Condition: Critical Rest of plan per hospitalist and other consultants. A total of 35 minutes of critical care time was spent reviewing the patient record, examining the patient, making a diagnostic and therapeutic plan, discussing this plan with the medical personnel, following up on diagnostic studies and following the patient for clinical stability excluding any and all procedures. At least 50% of this time was spent in direct, [id number]-by-mzsl contact. Thank you, ANNALISE Wall, for allowing me to participate in this patient's care. Further recommendations will depend on the patient's clinical course. Please do not hesitate to contact me if you have any questions or concerns. This medical document was created using an electronic medical record system with [employer] system. Although these documentations are being carefully reviewed, there may still be some phonetic and typographical changes. The errors are purely typographical, due to imperfection on the software program, and do not reflect any compromise in the patient's medical care. Plan discussed with: Other (RN Gia) Critical Care Time(min): 35 BRONSON SY MD Dec 20, 2024 04:57
--- NOTE | 2024-12-20 04:59 | DVH ---
CHEST RADIOGRAPH Indication: INTUBATED Technique: Single frontal view of the chest was obtained Comparison: XY CHEST PORTABLE on DOS: 12/19/24 FINDINGS: Lines and Tubes: The endotracheal tube terminates at the rogers. Repositioning is recommended. Righ t central venous catheter terminates in the right atrium. The enteric tube courses below the left hem idiaphragm and the tip extends outside the field of view. Lungs: Lungs are hypoinflated with bibasilar airspace disease. Pleura: No effusion. No pneumothorax. Cardiomediastinal contours: Stable cardiomegaly. Bones: No acute osseous abnormality. IMPRESSION: 1. Endotracheal tube terminates at the level of the rogers and repositioning is recommended. 2. Hypoinflated lungs with bibasilar atelectasis.
[2024-12-20 07:53] LABS: Base Excess -2.5 mmol/L (-2.0-3.0)
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
[2024-12-20] MEDS ORDERED: LORazepam 2MG/ML-1ML VIAL IV PRN (09:45)
[2024-12-20 10:16] LABS: Hepatitis B Surface Antigen Negative (Negative)
[2024-12-20 10:39] LABS: Hepatitis C Antibody Negative (Negative)
--- NOTE | 2024-12-20 11:39 | DVHPNRES ---
Progress Note Date Seen: Dec 20, 2024 Resident Creating Document: STUART SAGASTUME RESIDENT Medical Necessity Reason Pt with a Central, PICC or Fol: Yes The following are medically ne: Reed Catheter Reason for reed catheter: Strict I&O Subjective Review of Systems Patient is a 24-year-old male with past medical history of hypertension, chronic pain, substance abuse disorder, who was brought in due to new onset seizures. Patient is sedated and mechanically ventilated, history was obtained from patient's mother Ms. Sabillon via telephone. According to the patient's mother, patient has been abusing laughing gas heavily for some time, patient went to by laughing gas on Friday12/15/2024 and used it with his friend where according to the friend patient consumed most of the canister. Patient's mom took him to the rehab on 12/16/2024 where he had a seizure and was taken to the hospital and subsequently discharged back to the rehab facility. On patient again started having seizures which is when he was taken to the hospital again and was subsequently intubated. Patient reported saying he is prescribed Depakote but he has been noncompliant, serum valproic levels were below therapeutic range at 22.1 Past surgical history: Denies Smoking: Uses tobacco vaporizer pen heavily daily Alcohol: Remote history of heavy alcohol use Drugs: Mother is unsure, however, notes he may have history of cocaine abuse and MDMA abuse Previously patient was living in a rented home with a roommate, for the last 1 week was living with mother. Review of systems could not be completed due to patient being sedated and mechanically ventilated. Objective vital signs Vital Sign Date Time Temp Pulse Resp B/P (MAP) Pulse Ox O2 Delivery O2 Flow Rate FiO2 12/20/24 11:00 100.6 100 18 104/56 (72) 99 213.1 12/20/24 11:00 50 12/20/24 09:56 Mechanical Ventilator+ 12/18/24 08:30 0 Total Intake and Output 12/19/24 12/19/24 12/20/24 15:00 23:00 07:00 Intake Total 849.984 ml 1119.984 ml 1597.826 ml Output Total 750 ml 1500 ml Balance 849.984 ml 369.984 ml 97.826 ml medications Current Medications Medications Dose Ordered Sig/Rick Route Start Time Stop Time Status Last Admin Dose Admin Sodium Chloride 1,000 ml @ 60 mls/hr [id number] IV 12/18/24 00:00 12/20/24 02:41 60 MLS/HR Ondansetron HCl 4 mg Q4HP PRN IV 12/18/24 00:00 Docusate Sodium 100 mg BIDPRN PRN PO 12/18/24 00:00 Levetiracetam 100 ml @ 400 mls/hr BID IV 12/18/24 22:00 12/19/24 21:15 400 MLS/HR Lorazepam 1 mg Q5MINP PRN IV 12/18/24 11:00 12/18/24 17:40 1 MG Propofol 100 ml @ 3.906 mls/ hr Q24H IV 12/18/24 18:15 12/20/24 09:29 39.06 MLS/HR Midazolam HCl 50 ml @ 1 mls/hr Q24H IV 12/18/24 21:15 12/20/24 09:29 15 MLS/HR Fentanyl Citrate 250 ml @ 2.5 mls/hr Q24H IV 12/18/24 23:15 12/20/24 09:42 27.5 MLS/HR Amino Acids 0 ml @ 0 mls/hr PER PHARMACY IV 12/19/24 10:00 Diagnostic Test (Pha) 1 strip Q6HR 12/19/24 12:00 12/20/24 06:15 1 STRIP Insulin Human Regular FOLLOW SLIDING SCALE Q6HR SC 12/19/24 12:00 Dextrose 50 ml UD IV 12/19/24 10:00 Potassium Chloride 20 meq/ Potassium Phosphate 22 meq/ Calcium Gluconate 2.3 meq/Magnesium Sulfate 8 meq/ Multivitamins 10 ml/Chromium/ Copper/Manganese/ Zinc 1 ml/Amino Acids/Dextrose/ Purified Water 1,432.9462 ml @ 60 mls/hr [id number] IV 12/19/24 22:00 12/20/24 21:59 12/19/24 21:18 60 MLS/HR Albuterol 2.5 mg Q6HR NEB 12/19/24 18:00 12/20/24 11:00 2.5 MG Ipratropium [place] 0.5 mg Q6HR NEB 12/19/24 18:00 12/20/24 11:00 0.5 MG Norepinephrine Bitartrate 250 ml @ 3.75 mls/hr Q24H IV 12/19/24 13:30 12/20/24 02:41 3.75 MLS/HR Lorazepam 1 mg Q5MINP PRN IV 12/20/24 09:45 Potassium Chloride 100 ml @ 50 mls/hr Q2H IV 12/20/24 10:30 12/20/24 14:29 Potassium Acetate 40 meq/Calcium Gluconate 4.65 meq/Magnesium Sulfate 14 meq/ Multivitamins 10 ml/Chromium/ Copper/Manganese/ Zinc 1 ml/Amino Acids/Dextrose 1,244.5 ml @ 52 mls/hr [id number] IV 12/20/24 22:00 12/21/24 21:59 Examination General Appearance: Sedated and mechanically ventilated obese adult. Constricted pupils. Pulmonary/Respiratory: Coarse bilateral breath sounds Cardiovascular/Chest: Tachycardia Peripheral Pulses: 2+ Pedal (R). 2+ Pedal (L) Abdominal Exam: Normal bowel sounds. Soft. normal abdomen, no visible veins, Nontender. No hepatospenomegaly. No masses Lower extremities: Negative lower extremity edema Skin Exam: Normal inspection. Normal color. Warm. Dry laboratory and microbiology Laboratory Tests 12/20/24 03:15 12/20/24 03:10 Test 12/20/24 03:10 Range/Units Serum Glucose 102 74-106 mg/dL Microbiology Date/Time Source Procedure Growth Status 12/18/24 20:40 Sputum Gram Stain - Final Resulted 12/18/24 20:40 Sputum Respiratory Culture - Preliminary Resulted Labs and/or images reviewed: Labs reviewed by me, Image(s) reviewed by me Problem List/Assessment/Plan Problem List/Assessment/Plan Neurology # acute likely toxic versus metabolic encephalopathy # new onset? Breakthrough grand mal seizures # medication nonadherence # Sedated - Versed 15 - propofol 50 - fentanyl to 75 Target RASS -4 - serum valproic acid levels below normal 22.1 - IV levetiracetam 1500 mg b.i.d. - IV lorazepam as needed for seizures - head CT: No evidence of acute intracranial abnormality. If symptoms persist, consider MRI for further evaluation. - neurology on board; ordered brain Cardiovascular # essential hypertension # sedation related hypotension on mechanical ventilation - IV NS at 60 cc/hour - Levophed at 2 mcg Respiratory # Acute hypoxic respiratory failure secondary to intractable seizures # Ventilator - intubated 12/18/2024 - on [facility] vent : VCAC Mode RR 18 TV 550ml, PEEP Of 5 and FiO2 of 60% - ipratropium and albuterol med nebs - CXR: Hypoinflated lungs with bibasilar atelectasis GI # transaminitis # Peptic ulcer prophylaxis -Pantoprazole 40 mg IV daily - negative hepatitis-B and hepatitis-C # Reed catheter placed on 12/20/2024 Nephrology # hypernatremia, now improved # hypokalemia, now improved Hem/onc # microcytic anemia, mild - monitor Endocrine # 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 Code status discussed greater than 20 minutes: Full CODE STATUS. Plan discussed with Dr. New; we decided to try to come down on fentanyl, repeat chest x-ray and dawn cultures. Plan discussed with: Other (Patient's mother, RN) My Orders My Orders Orders - STUART SAGASTUME RESIDENT Procedure Category Date Status Time Blood Culture BRENDA 12/20/24 In Process 10:04 Urine Bacterial BRENDA 12/20/24 Logged Culture 10:04 Dietary Evaluation Review Comments: 1) Continue TPN to meet at least 75% estimated needs 2) TF Vital High Protein @ 60ml/hr(goal) with current rate of propofol. TF at goal volume together with propofol provides 2471 kcal (100% eenrgy needs) & 126 gm protein (100% protein needs) 3) Monitor TPN tolerance, lab values, I/O, wt trend Expected Outcomes/Goals: To meet >75% estimated needs Fu 2-3 days STUART SAGASTUME RESIDENT Dec 20, 2024 11:39
[2024-12-20] MEDS: POTASSIUM CHL 20MEQ/100ML 100 ML IV SCH (11:55)
[2024-12-20] MEDS: ENOXAPARIN SOD 40 MG/0.4 ML SYRINGE SC ONE (13:01)
[2024-12-20] MEDS: PANTOPRAZOLE 40 MG/10 ML VIAL INJ IV ONE (13:02)
--- NOTE | 2024-12-20 20:19 | DVH ---
Bilateral lower extremity venous duplex Clinical History: leg swelling, elevated d-dimer Comparison: None Findings: Duplex Doppler evaluation of the deep venous systems of both lower extremities from the common femora l veins to the popliteal veins including color Doppler and spectral/pulsed waveform analysis was perf ormed. RIGHT SIDE: The common femoral vein demonstrates appropriate compressibility and waveform variability. There is compressibility/patency of the great saphenous vein at the proximal thigh. The femoral vein demonstrates appropriate compressibility and waveform variability. The deep femoral vein demonstrates appropriate compressibility and waveform variability. The popliteal vein demonstrates appropriate compressibility and waveform variability. There is normal compressibility at the tibioperoneal trunk. LEFT SIDE: The common femoral vein demonstrates appropriate compressibility and waveform variability. There is compressibility/patency of the great saphenous vein at the proximal thigh. The femoral vein demonstrates appropriate compressibility and waveform variability. The deep femoral vein demonstrates appropriate compressibility and waveform variability. The popliteal vein demonstrates appropriate compressibility and waveform variability. There is normal compressibility at the tibioperoneal trunk. IMPRESSION: No right or left femoropopliteal venous thrombosis. If clinical concern/symptoms persist or worsen, short-interval follow-up study is suggested. END IMPRESSION:
--- NOTE | 2024-12-20 20:45 | DVH ---
INDICATION: ET tube position TECHNIQUE: Frontal view of the chest. COMPARISON: XY CHEST XRAY 1 VIEW on DOS: 12/20/24, XY CHEST PORTABLE on DOS: 12/19/24, XY CHEST PORTABLE on DOS: 12/18/24, XY CHEST PORTABLE on DOS: 12/18/24 FINDINGS: The endotracheal tube terminates 1.3 cm from the rogers. Enteric tube courses below the diaphragm wit h distal and not well seen. Right internal jugular central venous catheter terminates at cavoatrial j unction. IMPRESSION: 1. Interval retraction of endotracheal tube which terminates 1.3 cm from the rogers 2. The distal end of the enteric tube is not well seen though appears to go below the diaphragm. Cons ider dedicated abdominal radiograph to assess for positioning.
[2024-12-20] MEDS: TPN PER PHARMACY IV NR (21:09)
--- NOTE | 2024-12-20 22:12 | DVHEEG2 ---
Neurology EEG Procedural Note Procedural Note EXAM DATE: 12/18/24 REFERRING DOCTOR: Dr. Perez TECHNIQUE: Eighteen channels of EEG, 2 channels of EOG, and 1 channel of EKG were recorded using the International 10/20 system. CLINICAL DATA: The patient was referred for an EEG evaluation for the evidence of seizure disorder. MEDICATIONS: See the chart BACKGROUND ACTIVITY: While the patient was awake, the background activity consisted of well regulated 12 Hz rhythmic waveforms, symmetrically distributed over both posterior quadrants and was reactive to eye opening. ACTIVATION: Hyperventilation: Not done Photic Stimulation: Not done Sleep: Stage I & II IMPRESSION: This is a normal EEG. No focal, lateralized, or epileptiform features are noted. If clinically indicated to rule out a seizure disorder, recommend repeat EEG with sleep deprivation. The EKG channel showed a regular heart rate of 84/min [place] [address] BONNY PEREZ MD Dec 20, 2024 22:12
[2024-12-21] VITALS (105 sets, daily range): BP systolic 95–128; BP diastolic 38–71; PULSE 79–113; RESP 12–22; TEMP 98.1–101.1; O2SAT 90–100
[2024-12-21 03:39] LABS: Hematocrit 40.8 % (41.0-53.0); Hemoglobin 13.5 g/dL (13.5-17.5); Mean Corpuscular Hemoglobin 30.7 pg (28.0-32.0); Mean Corpuscular Volume 92.9 fL (80.0-100.0); Nucleated Red Blood Cells % 0.0 %
[2024-12-21 03:55] LABS: Albumin 3.8 g/dL (3.2-4.8); Anion Gap 9 (5-15); BUN/Creatinine Ratio 14.3 (10.0-20.0); Bilirubin, Total 0.6 mg/dL (0.2-1.0); Calcium 9.0 mg/dL (8.7-10.4); Carbon Dioxide 27 mmol/L (20-31); Glucose 101 mg/dL (74-106); Magnesium 2.1 mg/dL (1.6-2.6); Potassium 4.1 mmol/L (3.5-5.1); Sodium 144 mmol/L (136-145); Total Protein 6.5 g/dL (5.7-8.2)
[2024-12-21 04:20] LABS: Alanine Aminotransferase 40 U/L (7-40); Alkaline Phosphatase 160 U/L (46-116); Blood Urea Nitrogen 8 mg/dL (9-23); Chloride 108 mmol/L (98-107)
--- NOTE | 2024-12-21 04:32 | DVH ---
CHEST RADIOGRAPH Indication: Intubated Technique: Single frontal view of the chest was obtained COMPARISON: XY CHEST PORTABLE on DOS: 12/20/24, XY CHEST XRAY 1 VIEW on DOS: 12/20/24, XY CHEST PORTABLE on DOS: 12/19/24, XY CHEST PORTABLE on DOS: 12/18/24, XY CHEST PORTABLE on DOS: 12/18/24 FINDINGS: Lines and Tubes: The endotracheal tube has been retracted such that the tip now projects approximatel y 5.5 cm above the level of the rogers. The enteric catheter and right internal jugular central venou s line are unchanged. Lungs: Mild persistent patchy medial right lung base and retrocardiac pulmonary airspace disease. Pleura: No definite effusion. No pneumothorax. Cardiomediastinal contours: Unremarkable Bones: Unremarkable IMPRESSION: 1. Stable appearing medial right lung base and retrocardiac pulmonary airspace disease. 2. Interval retraction of endotracheal tube with tip now projecting approximately 5.5 cm above the le mark of the rogers. Consider advancement by up to 3 cm. 3. Remaining lines and tubes unchanged.
[2024-12-21 06:03] LABS: Triglycerides 256 mg/dL (< 150)
[2024-12-21 07:12] LABS: Base Excess 0.7 mmol/L (-2.0-3.0)
[2024-12-21] MEDS: PROPOFOL 100 ML IV SCH (08:15)
--- NOTE | 2024-12-21 08:46 | DVHPN2 ---
Progress Note - Dictate Date Seen: Dec 21, 2024 Medical Necessity Reason Pt with a Central, PICC or Fol: Yes The following are medically ne: Reed Catheter Reason for reed catheter: Strict I&O Subjective Mr. Perry is a 24 years old right-handed gentleman with a history of hypertension, pain syndrome, substance abuse, he was admitted to the [facility] on 12/17/2024 for new onset seizure activity. I have seen and examined the patient, discussed with his nurses. He is nonresponsive to stroke painful stimuli, intubated, no gag reflexes No seizure activity Versed 15 mg/hour, propofol 40mcg/minutes, fentanyl 225 mcg/hour, levo 1 mcg/minute Urinalysis, 12/17/2024: Unremarkable Urine drug screening, 12/17/2024: Benzo Valproic acid, 12/17/2024: 22.1 Plasma alcohol, 12/17/2024: <3 ABG, 12/18/2024: Respiratory acidosis, 12/20/2024: Acidosis WBC/HB/PLT/MCV, 12/20/2024: 8/12.4/233/90.4 CMP 12/18/2024: Unremarkable TBI/AST/ALT/AP, 12/20/2024: 0.7/44/45/143 EEG, 12/19/2019 10/26/24 13:15: Normal Chest x-ray 12/18/2024: Endotracheal tube 0.7 cm above the rogers. Nasogastric tube in the proximal stomach CT head, 12/17/2024: No evidence of acute intracranial abnormality. If symptoms persist, consider MRI for further evaluation vital signs Vital Sign Date Time Temp Pulse Resp B/P (MAP) Pulse Ox O2 Delivery O2 Flow Rate FiO2 12/21/24 08:00 30 12/21/24 08:00 104 12/21/24 08:00 18 100 Mechanical Ventilator+ 12/21/24 07:45 98.4 123/52 (75) 209.1 Total Intake and Output 12/20/24 12/20/24 12/21/24 15:00 23:00 07:00 Intake Total 1837.57 ml 1262.550 ml 1565.980 ml Output Total 1900 ml 2650 ml Balance 1837.57 ml -637.450 ml -1084.020 ml medications Current Medications Medications Dose Ordered Sig/Rick Route Start Time Stop Time Status Last Admin Dose Admin Sodium Chloride 1,000 ml @ 60 mls/hr [id number] IV 12/18/24 00:00 12/20/24 19:53 60 MLS/HR Ondansetron HCl 4 mg Q4HP PRN IV 12/18/24 00:00 Docusate Sodium 100 mg BIDPRN PRN PO 12/18/24 00:00 Levetiracetam 100 ml @ 400 mls/hr BID IV 12/18/24 22:00 12/20/24 21:59 400 MLS/HR Lorazepam 1 mg Q5MINP PRN IV 12/18/24 11:00 12/18/24 17:40 1 MG Midazolam HCl 50 ml @ 1 mls/hr Q24H IV 12/18/24 21:15 12/21/24 05:42 15 MLS/HR Fentanyl Citrate 250 ml @ 2.5 mls/hr Q24H IV 12/18/24 23:15 12/21/24 03:57 27.5 MLS/HR Amino Acids 0 ml @ 0 mls/hr PER PHARMACY IV 12/19/24 10:00 Diagnostic Test (Pha) 1 strip Q6HR 12/19/24 12:00 12/21/24 00:06 1 STRIP Insulin Human Regular FOLLOW SLIDING SCALE Q6HR SC 12/19/24 12:00 Dextrose 50 ml UD IV 12/19/24 10:00 Albuterol 2.5 mg Q6HR NEB 12/19/24 18:00 12/21/24 06:09 2.5 MG Ipratropium [place] 0.5 mg Q6HR NEB 12/19/24 18:00 12/21/24 06:09 0.5 MG Norepinephrine Bitartrate 250 ml @ 3.75 mls/hr Q24H IV 12/19/24 13:30 12/20/24 02:41 3.75 MLS/HR Lorazepam 1 mg Q5MINP PRN IV 12/20/24 09:45 Potassium Acetate 40 meq/Calcium Gluconate 4.65 meq/Magnesium Sulfate 14 meq/ Multivitamins 10 ml/Chromium/ Copper/Manganese/ Zinc 1 ml/Amino Acids/Dextrose 1,244.5 ml @ 52 mls/hr [id number] IV 12/20/24 22:00 12/21/24 21:59 12/20/24 21:09 52 MLS/HR Pantoprazole Sodium 40 mg DAILY IV 12/21/24 10:00 Enoxaparin Sodium 40 mg DAILY SC 12/21/24 10:00 Propofol 100 ml @ 4.059 mls/ hr Q24H IV 12/21/24 08:15 objective The patient is well-nourished and well-developed with no distress. The patient is intubated HEENT: Normocephalic, neck supple, no carotid bruits Lungs: Clear to auscultation Cardiovascular: Regular rate and region, S1, S2, no murmurs Abdomen: Soft, nontender, normal bowel sounds MENTAL STATUS: Not responsive to the surroundings, CRANIAL NERVES: Pupils are equal, round and nonreactive, small. There are corneal reflexes and doll's eyes phenomenon. No signs of facial weakness. There are no gagging or coughing reflexes SENSATION: No responses to pain stimuli. MOTOR: Normal tone in the upper and lower extremity. Normal muscle bulk. No fasciculations. No spontaneous movement. REFLEXES: Deep tendon reflexes are symmetrical. No pathological reflexes. CEREBELLAR/COORDINATION: Deferred GAIT/STATION: deferred laboratory and microbiology Laboratory Tests 12/21/24 02:39 Test 12/21/24 02:39 Range/Units Serum Glucose 101 74-106 mg/dL Problem List Come Metabolic encephalopathy Hypoxic encephalopathy Toxic encephalopathy ? Status epileptics New onset seizure, status epileptics Likely secondary to substance abuse Rule out epileptic seizure or other acute symptomatic seizure Substance abuse ? Depression Respiratory failure Assessment/Plan Monitoring Supportive treatment Telemetry Follow-up lab MRI head ICU care Stabilize vitals/pressor drip Respiratory support/vent management Ativan for seizure breakthrough Need history from him directly Keppra for the time being, he may not need preventive seizure treatment Consider tele psych consultation Re: The previous substance abuse later More recommendation per clinical course This medical document was created using an electronic medical record system with [employer] dictation system. Although this document has been carefully reviewed, there may still be some phonetic and typographical errors. These areas are purely typographical due to imperfections of the software programs, and do not reflect any compromise in the patient's medical care. Prognosis guarded Dietary Evaluation Review Comments: 1) Continue TPN to meet at least 75% estimated needs 2) TF Vital High Protein @ 60ml/hr(goal) with current rate of propofol. TF at goal volume together with propofol provides 2471 kcal (100% eenrgy needs) & 126 gm protein (100% protein needs) 3) Monitor TPN tolerance, lab values, I/O, wt trend Expected Outcomes/Goals: To meet >75% estimated needs Fu 2-3 days Plan discussed with: Other Critical Care Time(min): 35 BONNY PEREZ MD Dec 21, 2024 08:46
[2024-12-21] MEDS: ENOXAPARIN SOD 40 MG/0.4 ML SYRINGE SC SCH (09:33)
[2024-12-21] MEDS: PANTOPRAZOLE 40 MG/10 ML VIAL INJ IV SCH (09:34)
[2024-12-21] MEDS: PIPERACILLIN-TAZOB 3.375GM 100 ML IV SCH (13:20)
--- NOTE | 2024-12-21 13:29 | DVH ---
PROCEDURE: MRI BRAIN HEAD WO CONTRAST INDICATION: Sz EXAM DATE: 12/21/2024 12:14 PM COMPARISON: None TECHNIQUE: MRI of the brain without intravenous contrast. Seizure protocol. FINDINGS: Diffusion weighted images of the brain demonstrate no evidence of acute infarction. There is no evidence of acute intracranial hemorrhage, extra-axial collection, mass effect, midline s hift, herniation or hydrocephalus. The ventricles, sulci and cisterns appear age appropriate. The signal intensities of the brain parenchyma are within normal limits. There are no signal abnormalities on the susceptibility weighted sequences. The major vascular flow voids are present. Bilateral ethmoid, maxillary, and sphenoid sinus disease. Bilateral mastoid effusions. Prominent maile ateral cervical lymph nodes noted. IMPRESSION: 1. No evidence of acute infarction, intracranial hemorrhage, mass effect or hydrocephalus. No evidenc e of mesial temporal sclerosis. Pansinusitis. Prominent bilateral cervical lymph nodes. This can be further evaluated with ultrasound. HS:Y
--- NOTE | 2024-12-21 17:29 | DVHPNRES ---
Progress Note Date Seen: Dec 21, 2024 Resident Creating Document: STUART SAGASTUME RESIDENT Medical Necessity Reason Pt with a Central, PICC or Fol: Yes The following are medically ne: Reed Catheter Reason for reed catheter: Strict I&O Subjective Review of Systems Patient is a 24-year-old male with past medical history of hypertension, chronic pain, substance abuse disorder, who was brought in due to new onset seizures. Patient is sedated and mechanically ventilated, history was obtained from patient's mother Ms. Sabillon via telephone. According to the patient's mother, patient has been abusing laughing gas heavily for some time, patient went to by laughing gas on Friday12/15/2024 and used it with his friend where according to the friend patient consumed most of the canister. Patient's mom took him to the rehab on 12/16/2024 where he had a seizure and was taken to the hospital and subsequently discharged back to the rehab facility. On patient again started having seizures which is when he was taken to the hospital again and was subsequently intubated. Patient reported saying he is prescribed Depakote but he has been noncompliant, serum valproic levels were below therapeutic range at 22.1 Past surgical history: Denies Smoking: Uses tobacco vaporizer pen heavily daily Alcohol: Remote history of heavy alcohol use Drugs: Mother is unsure, however, notes he may have history of cocaine abuse and MDMA abuse Previously patient was living in a rented home with a roommate, for the last 1 week was living with mother. Review of systems could not be completed due to patient being sedated and mechanically ventilated. 12/21/24: Patient seen and examined at bedside. Noted to have some fevers and mild increase in leukocytosis, started on IV Zosyn. Mom and sister at bedside, details of illness explained, all questions answered and concerns addressed. Objective vital signs Vital Sign Date Time Temp Pulse Resp B/P (MAP) Pulse Ox O2 Delivery O2 Flow Rate FiO2 12/21/24 17:00 101.1 107 14 108/56 (73) 95 214.0 12/21/24 16:00 Mechanical Ventilator+ 30 30 Total Intake and Output 12/20/24 12/20/24 12/21/24 15:00 23:00 07:00 Intake Total 1837.57 ml 1262.550 ml 1565.980 ml Output Total 1900 ml 2650 ml Balance 1837.57 ml -637.450 ml -1084.020 ml medications Current Medications Medications Dose Ordered Sig/Rick Route Start Time Stop Time Status Last Admin Dose Admin Sodium Chloride 1,000 ml @ 60 mls/hr [id number] IV 12/18/24 00:00 12/21/24 13:35 60 MLS/HR Ondansetron HCl 4 mg Q4HP PRN IV 12/18/24 00:00 Levetiracetam 100 ml @ 400 mls/hr BID IV 12/18/24 22:00 12/21/24 09:33 400 MLS/HR Lorazepam 1 mg Q5MINP PRN IV 12/18/24 11:00 12/18/24 17:40 1 MG Midazolam HCl 50 ml @ 1 mls/hr Q24H IV 12/18/24 21:15 12/21/24 14:15 15 MLS/HR Fentanyl Citrate 250 ml @ 2.5 mls/hr Q24H IV 12/18/24 23:15 12/21/24 13:17 22.5 MLS/HR Diagnostic Test (Pha) 1 strip Q6HR 12/19/24 12:00 12/21/24 11:19 1 STRIP Insulin Human Regular FOLLOW SLIDING SCALE Q6HR SC 12/19/24 12:00 Dextrose 50 ml UD IV 12/19/24 10:00 Albuterol 2.5 mg Q6HR NEB 12/19/24 18:00 12/21/24 12:52 2.5 MG Ipratropium [place] 0.5 mg Q6HR NEB 12/19/24 18:00 12/21/24 12:53 0.5 MG Norepinephrine Bitartrate 250 ml @ 3.75 mls/hr Q24H IV 12/19/24 13:30 12/20/24 02:41 3.75 MLS/HR Pantoprazole Sodium 40 mg DAILY IV 12/21/24 10:00 12/21/24 09:34 40 MG Enoxaparin Sodium 40 mg DAILY SC 12/21/24 10:00 12/21/24 09:33 40 MG Propofol 100 ml @ 4.059 mls/ hr Q24H IV 12/21/24 08:15 12/21/24 16:09 20.295 MLS/HR Piperacillin Sod/ Tazobactam Sod 100 ml @ 25 mls/hr Q6HR IV 12/21/24 12:00 12/21/24 13:20 25 MLS/HR Examination General Appearance: Sedated and mechanically ventilated obese adult. Constricted pupils. Pulmonary/Respiratory: Coarse bilateral breath sounds Cardiovascular/Chest: Tachycardia Peripheral Pulses: 2+ Pedal (R). 2+ Pedal (L) Abdominal Exam: Normal bowel sounds. Soft. normal abdomen, no visible veins, Nontender. No hepatospenomegaly. No masses Lower extremities: Negative lower extremity edema Skin Exam: Normal inspection. Normal color. Dry. Cool peripheral extremities laboratory and microbiology Laboratory Tests 12/21/24 02:39 Test 12/21/24 02:39 Range/Units Serum Glucose 101 74-106 mg/dL Microbiology Date/Time Source Procedure Growth Status 12/20/24 17:00 Voided Urine Urine Culture - Preliminary Resulted 12/20/24 10:38 Blood Blood Culture - Preliminary NO GROWTH AFTER 24 HOURS OF INCUBATION. Resulted 12/18/24 20:40 Sputum Gram Stain - Final Resulted 12/18/24 20:40 Sputum Respiratory Culture - Preliminary Resulted Problem List/Assessment/Plan Problem List/Assessment/Plan Neurology # acute likely toxic versus metabolic encephalopathy # new onset? Breakthrough grand mal seizures # medication nonadherence # possible alcohol withdrawal, unable to calculate CIWA # Sedated - Versed 15 - propofol 50 - fentanyl to 75 Target RASS -4 - serum valproic acid levels below normal 22.1 - IV levetiracetam 1500 mg b.i.d. - IV lorazepam as needed for seizures - head CT: No evidence of acute intracranial abnormality. If symptoms persist, consider MRI for further evaluation. - neurology on board - brain MRI: No evidence of acute infarction, intracranial hemorrhage, mass effect or hydrocephalus. No effects of mesial temporal sclerosis. Pansinusitis. Prominent bilateral cervical lymph nodes. - last seizure 12/19/2024 around 6:00 p.m. - brain EEG largely unremarkable - IV banana bag, IV thiamine, IV folic acid Cardiovascular # essential hypertension # sedation related hypotension on mechanical ventilation - IV NS at 60 cc/hour - Levophed at 1 mcg Respiratory # Acute hypoxic respiratory failure secondary to intractable seizures # probable aspiration pneumonia # Ventilator - intubated 12/18/2024 - on [facility] vent : VCAC Mode RR 18 TV 550ml, PEEP Of 5 and FiO2 of 60% - ipratropium and albuterol med nebs - CXR: Hypoinflated lungs with bibasilar atelectasis - started on IV Zosyn 12/21/2024 GI # transaminitis # Peptic ulcer prophylaxis # vitamin B12 deficiency -Pantoprazole 40 mg IV daily - negative hepatitis-B and hepatitis-C - repleted with 1000 mcg B12 # Reed catheter placed on 12/18/2024 Nephrology # hypernatremia, now improved # hypokalemia, now improved Infectious disease # aspiration pneumonia # sepsis due to above - pancultures - IV Zosyn - Tylenol as needed for fever - monitor Hem/onc # microcytic anemia, mild - monitor Psychiatry # substance use disorder - we will consider Psychiatry consult once patient is extubated DVT prophylaxis - Lovenox 40 mg subcutaneous daily Nutrition - tube feedings started on 12/21/2024 Lines Right IJ placed on 12/18/2024 Left arm 20 gauge placed on 12/17/2024 Right arm 20 gauge placed on 12/18/2024 Drips - Levophed 1 mcg - Versed 15 - fentanyl 225 - propofol 40 Critical care time 83 minutes excluding procedure. Code status discussed greater than 20 minutes: Full CODE STATUS. Plan discussed with Dr. Iqbal Plan discussed with: Other (Patient's mother, patient's sister, RN) My Orders My Orders Orders - STUART SAGASTUME RESIDENT Procedure Category Date Status Time Chest Portable XY 12/20/24 Resulted 17:39 Communication Order ORDERS 12/20/24 Transmitted 18:28 Propofol (Diprivan) PHA 12/21/24 In Process 08:15 Respiratory Misc. RT 12/21/24 Transmitted Order 09:20 Mrsa Screen BRENDA 12/21/24 In Process 10:21 Piperacillin-Tazob PHA 12/21/24 In Process 3.375gm (Zosyn 3.375g 12:00 Dietary Evaluation Review Comments: 1) Continue TPN to meet at least 75% estimated needs 2) TF Vital High Protein @ 60ml/hr(goal) with current rate of propofol. TF at goal volume together with propofol provides 2471 kcal (100% eenrgy needs) & 126 gm protein (100% protein needs) 3) Monitor TPN tolerance, lab values, I/O, wt trend Expected Outcomes/Goals: To meet >75% estimated needs Fu 2-3 days Date of Service: Dec 21, 2024 Billing Provider: ANTHONY IQBAL MD Common Visit Codes: 10100-NRQETUSO CARE 30-74 MIN, 78787-[id number] CARE-EACH +30MIN STUART SAGASTUME Dec 21, 2024 17:29 ANTHONY IQBAL MD Dec 22, 2024 16:13
[2024-12-21] MEDS: THIAMINE 100mg/ml INJ (200mg/2ml VIAL) IV ONE (18:58)
[2024-12-21] MEDS: FOLIC ACID 1 MG, MAGNESIUM SULF SDV 50% 8 MEQ, MULTIPLE VITAMIN 10 ML, THIAMINE INJ 100... INJ SCH (18:59)
[2024-12-21 19:02] LABS: INR 1.03 (0.9-1.15); Partial Thromboplastin Time 31.9 SEC (24.5-34.5); Prothrombin Time 10.9 sec (9.3-11.8)
[2024-12-21] MEDS: CYANOCOBALAMIN (B-12) 1000 MCG/1 ML VIAL SUBCUT ONE (20:17)
[2024-12-21 20:29] LABS: Base Excess 2.3 mmol/L (-2.0-3.0)
[2024-12-21] MEDS: FOLIC ACID 1 MG in D5W 5% 50 ML INJ ONE (21:41)
[2024-12-21] MEDS ORDERED: POTASSIUM ACETATE IV NR (22:00)
[2024-12-21] MEDS ORDERED: POTASSIUM PHOSPHATE IV NR (22:00)
[2024-12-21] MEDS ORDERED: [UNRECOGNIZED DRUG - OTHER] IV NR (22:00)
[2024-12-21] MEDS: ENSURE CLEAR Mixed Berry 8oz Carton NG SCH (22:38)
[2024-12-21] MEDS: NutriHep RTU 240 mL Unflavored GT SCH (22:45)
[2024-12-22] VITALS (104 sets, daily range): BP systolic 104–136; BP diastolic 48–82; PULSE 74–106; RESP 12–35; TEMP 97.7–100.4; O2SAT 83–100
[2024-12-22 03:42] LABS: Anion Gap 7 (5-15); Carbon Dioxide 28 mmol/L (20-31); Chloride 105 mmol/L (98-107); Sodium 140 mmol/L (136-145)
[2024-12-22 03:43] LABS: Calcium 8.9 mg/dL (8.7-10.4)
[2024-12-22 03:48] LABS: BUN/Creatinine Ratio 14.6 (10.0-20.0); Glucose 103 mg/dL (74-106)
[2024-12-22 03:50] LABS: Blood Urea Nitrogen 7 mg/dL (9-23); Potassium 3.4 mmol/L (3.5-5.1)
[2024-12-22 04:00] LABS: Hematocrit 34.4 % (41.0-53.0); Hemoglobin 11.5 g/dL (13.5-17.5); Mean Corpuscular Hemoglobin 30.6 pg (28.0-32.0); Mean Corpuscular Volume 91.5 fL (80.0-100.0)
--- NOTE | 2024-12-22 04:10 | DVH ---
CHEST RADIOGRAPH Indication: pna Technique: Single frontal view of the chest was obtained COMPARISON: XY CHEST PORTABLE on DOS: 12/21/24, XY CHEST PORTABLE on DOS: 12/20/24, XY CHEST XRAY 1 VIEW on DOS: 12/20/24, XY CHEST PORTABLE on DOS: 12/19/24, XY CHEST PORTABLE on DOS: 12/18/24 FINDINGS: Lines and Tubes: Slight interval advancement of endotracheal tube with tip now projecting approximate ly 3.2 cm above the level of the rogers. Remaining lines and tubes unchanged. Lungs: Stable appearing diffuse increased prominence of the pulmonary vasculature without evidence of focal consolidation. Pleura: No effusion. No pneumothorax. Cardiomediastinal contours: Unremarkable Bones: Unremarkable IMPRESSION: 1. Stable appearing diffuse increased prominence of the pulmonary vasculature. 2. Slight interval advancement of endotracheal tube with remaining lines and tubes unchanged.
[2024-12-22 04:38] LABS: Total Cells Counted 100.0 (100)
[2024-12-22] MEDS: POTASSIUM CHL 20MEQ/100ML 100 ML IV ONE (06:09)
[2024-12-22 07:18] LABS: Base Excess -1.3 mmol/L (-2.0-3.0)
[2024-12-22] MEDS: POLYETHYLENE GLYCOL 17 GM PWDR PO SCH (09:14)
[2024-12-22] MEDS: DOCUSATE ORAL LIQUID 100 MG/10 ML UD GT SCH (09:15)
--- NOTE | 2024-12-22 11:13 | DVHPN2 ---
Progress Note - Dictate Date Seen: Dec 22, 2024 Medical Necessity Reason Pt with a Central, PICC or Fol: Yes The following are medically ne: Reed Catheter Reason for reed catheter: Strict I&O Subjective Mr. Perry is a 24 years old right-handed gentleman with a history of hypertension, pain syndrome, substance abuse, he was admitted to the [facility] on 12/17/2024 for new onset seizure activity. I have seen and examined the patient, discussed with his nurses. Clinically no obvious changes, he is nonresponsive to stroke painful stimuli, intubated, no gag reflexes No seizure activity Versed 16 mg/hour, propofol 13mcg/minutes, fentanyl 225 mcg/hour Urinalysis, 12/17/2024: Unremarkable Urine drug screening, 12/17/2024: Benzo Valproic acid, 12/17/2024: 22.1 Plasma alcohol, 12/17/2024: <3 ABG, 12/18/2024: Respiratory acidosis, 12/20/2024: Acidosis WBC/HB/PLT/MCV, 12/20/2024: 8/12.4/233/90.4 CMP 12/18/2024: Unremarkable TBI/AST/ALT/AP, 12/20/2024: 0.7/44/45/143 EEG, 12/19/2019 10/26/24 13:15: Normal Chest x-ray 12/18/2024: Endotracheal tube 0.7 cm above the rogers. Nasogastric tube in the proximal stomach CT head, 12/17/2024: No evidence of acute intracranial abnormality. If symptoms persist, consider MRI for further evaluation MR head, 12/21/2024: No evidence of acute infarction, intracranial hemorrhage, mass effect or hydrocephalus. No evidence of mesial temporal sclerosis. Pansinusitis. Prominent bilateral cervical lymph nodes. This can be further evaluated with ultrasound (? DWI images 30, 14) vital signs Vital Sign Date Time Temp Pulse Resp B/P (MAP) Pulse Ox O2 Delivery O2 Flow Rate FiO2 12/22/24 10:45 98.6 87 23 112/58 (76) 96 209.5 12/22/24 10:00 Mechanical Ventilator+ 30 30 Total Intake and Output 12/21/24 12/21/24 12/22/24 15:00 23:00 07:00 Intake Total 1720.474 ml 2023.812 ml 1853.100 ml Output Total 1550 ml 1150 ml Balance 1720.474 ml 473.812 ml 703.100 ml medications Current Medications Medications Dose Ordered Sig/Rick Route Start Time Stop Time Status Last Admin Dose Admin Ondansetron HCl 4 mg Q4HP PRN IV 12/18/24 00:00 Levetiracetam 100 ml @ 400 mls/hr BID IV 12/18/24 22:00 12/22/24 09:15 400 MLS/HR Lorazepam 1 mg Q5MINP PRN IV 12/18/24 11:00 12/18/24 17:40 1 MG Midazolam HCl 50 ml @ 1 mls/hr Q24H IV 12/18/24 21:15 12/22/24 09:17 15 MLS/HR Fentanyl Citrate 250 ml @ 2.5 mls/hr Q24H IV 12/18/24 23:15 12/22/24 00:25 22.5 MLS/HR Diagnostic Test (Pha) 1 strip Q6HR 12/19/24 12:00 12/22/24 06:00 1 STRIP Insulin Human Regular FOLLOW SLIDING SCALE Q6HR SC 12/19/24 12:00 Dextrose 50 ml UD IV 12/19/24 10:00 Albuterol 2.5 mg Q6HR NEB 12/19/24 18:00 12/22/24 06:00 2.5 MG Ipratropium [place] 0.5 mg Q6HR NEB 12/19/24 18:00 12/22/24 06:00 0.5 MG Norepinephrine Bitartrate 250 ml @ 3.75 mls/hr Q24H IV 12/19/24 13:30 12/20/24 02:41 3.75 MLS/HR Pantoprazole Sodium 40 mg DAILY IV 12/21/24 10:00 12/22/24 09:16 40 MG Enoxaparin Sodium 40 mg DAILY SC 12/21/24 10:00 12/22/24 09:15 40 MG Propofol 100 ml @ 4.059 mls/ hr Q24H IV 12/21/24 08:15 12/22/24 09:37 12.177 MLS/HR Piperacillin Sod/ Tazobactam Sod 100 ml @ 25 mls/hr Q6HR IV 12/21/24 12:00 7/9/25 11:04 25 MLS/HR Enteral Nutritional Formula 240 ml 30ML/HR GT 12/21/24 17:30 Enteral Nutritional Formula 240 ml BID NG 12/21/24 22:30 12/22/24 09:19 240 ML Polyethylene Glycol 17 gm DAILY PO 12/22/24 10:00 12/22/24 09:14 17 GM Docusate Sodium 100 mg BID GT 12/22/24 10:00 12/22/24 09:15 100 MG Acetaminophen 325 mg Q4HP PRN PO 12/22/24 08:15 Folic Acid 1 mg/ Magnesium Sulfate 8 meq/ Multivitamins 10 ml/Thiamine HCl 100 mg/Sodium Chloride 1,013.2 ml @ 126.247 mls/hr DAILY@1800 INJ 12/22/24 18:00 objective The patient is well-nourished and well-developed with no distress. The patient is intubated HEENT: Normocephalic, neck supple, no carotid bruits Lungs: Clear to auscultation Cardiovascular: Regular rate and region, S1, S2, no murmurs Abdomen: Soft, nontender, normal bowel sounds MENTAL STATUS: Not responsive to the surroundings, CRANIAL NERVES: Pupils are equal, round and nonreactive, small. There are corneal reflexes and doll's eyes phenomenon. No signs of facial weakness. There are no gagging or coughing reflexes SENSATION: No responses to pain stimuli. MOTOR: Normal tone in the upper and lower extremity. Normal muscle bulk. No fasciculations. No spontaneous movement. REFLEXES: Deep tendon reflexes are symmetrical. No pathological reflexes. CEREBELLAR/COORDINATION: Deferred GAIT/STATION: deferred laboratory and microbiology Laboratory Tests 12/22/24 03:00 Test 12/22/24 03:00 Range/Units Serum Glucose 103 74-106 mg/dL Problem List Come Metabolic encephalopathy Hypoxic encephalopathy Toxic encephalopathy ? Status epileptics New onset seizure, status epileptics Likely secondary to substance abuse Rule out epileptic seizure or other acute symptomatic seizure Substance abuse ? Depression Respiratory failure Assessment/Plan Monitoring Supportive treatment Telemetry Follow-up lab ICU care Stabilize vitals/pressor drip Respiratory support/vent management Ativan for seizure breakthrough Need history from him directly Keppra for the time being, he may not need preventive seizure treatment Consider tele psych consultation Re: The previous substance abuse later More recommendation per clinical course This medical document was created using an electronic medical record system with [employer] dictation system. Although this document has been carefully reviewed, there may still be some phonetic and typographical errors. These areas are purely typographical due to imperfections of the software programs, and do not reflect any compromise in the patient's medical care. Prognosis guarded Dietary Evaluation Review Comments: 1) Continue TPN to meet at least 75% estimated needs 2) TF Vital High Protein @ 60ml/hr(goal) with current rate of propofol. TF at goal volume together with propofol provides 2471 kcal (100% eenrgy needs) & 126 gm protein (100% protein needs) 3) Monitor TPN tolerance, lab values, I/O, wt trend Expected Outcomes/Goals: To meet >75% estimated needs Fu 2-3 days Plan discussed with: Other BONNY PEREZ MD Dec 22, 2024 11:13
[2024-12-22] MEDS: FOLIC ACID 1 MG, MAGNESIUM SULF SDV 50% 8 MEQ, MULTIPLE VITAMIN 10 ML, THIAMINE INJ 100... INJ SCH (18:09)
--- NOTE | 2024-12-22 20:30 | DVHPNRES ---
Progress Note Date Seen: Dec 22, 2024 Resident Creating Document: STUART SAGASTUME RESIDENT Medical Necessity Reason Pt with a Central, PICC or Fol: Yes The following are medically ne: Reed Catheter Reason for reed catheter: Strict I&O Subjective Review of Systems Patient is a 24-year-old male with past medical history of hypertension, chronic pain, substance abuse disorder, who was brought in due to new onset seizures. Patient is sedated and mechanically ventilated, history was obtained from patient's mother Ms. Sabillon via telephone. According to the patient's mother, patient has been abusing laughing gas heavily for some time, patient went to by laughing gas on Friday12/15/2024 and used it with his friend where according to the friend patient consumed most of the canister. Patient's mom took him to the rehab on 12/16/2024 where he had a seizure and was taken to the hospital and subsequently discharged back to the rehab facility. On patient again started having seizures which is when he was taken to the hospital again and was subsequently intubated. Patient reported saying he is prescribed Depakote but he has been noncompliant, serum valproic levels were below therapeutic range at 22.1 Past surgical history: Denies Smoking: Uses tobacco vaporizer pen heavily daily Alcohol: Remote history of heavy alcohol use Drugs: Mother is unsure, however, notes he may have history of cocaine abuse and MDMA abuse Previously patient was living in a rented home with a roommate, for the last 1 week was living with mother. Review of systems could not be completed due to patient being sedated and mechanically ventilated. 12/21/24: Patient seen and examined at bedside. Noted to have some fevers and mild increase in leukocytosis, started on IV Zosyn. Mom and sister at bedside, details of illness explained, all questions answered and concerns addressed. 12/22/24: Patient seen and examined, plan to cpap trial tomorrow. Objective vital signs Vital Sign Date Time Temp Pulse Resp B/P (MAP) Pulse Ox O2 Delivery O2 Flow Rate FiO2 12/22/24 20:06 103 20 120/61 (80) 95 30 12/22/24 19:45 100.0 212.0 12/22/24 18:00 Mechanical Ventilator+ Total Intake and Output 12/21/24 12/21/2425 15:00 23:00 07:00 Intake Total 1720.474 ml 2023.812 ml 1853.100 ml Output Total 1550 ml 1150 ml Balance 1720.474 ml 473.812 ml 703.100 ml medications Current Medications Medications Dose Ordered Sig/Rick Route Start Time Stop Time Status Last Admin Dose Admin Ondansetron HCl 4 mg Q4HP PRN IV 12/18/24 00:00 Levetiracetam 100 ml @ 400 mls/hr BID IV 12/18/24 22:00 12/22/24 09:15 400 MLS/HR Lorazepam 1 mg Q5MINP PRN IV 12/18/24 11:00 12/18/24 17:40 1 MG Midazolam HCl 50 ml @ 1 mls/hr Q24H IV 12/18/24 21:15 12/22/24 19:39 14 MLS/HR Fentanyl Citrate 250 ml @ 2.5 mls/hr Q24H IV 12/18/24 23:15 12/22/24 11:10 22.5 MLS/HR Diagnostic Test (Pha) 1 strip Q6HR 12/19/24 12:00 12/22/24 17:35 1 STRIP Insulin Human Regular FOLLOW SLIDING SCALE Q6HR [place] 12/19/24 12:00 Dextrose 50 ml UD IV 12/19/24 10:00 Albuterol 2.5 mg Q6HR [facility] 12/19/24 18:00 12/22/24 18:27 2.5 MG Ipratropium [place] 0.5 mg Q6HR [facility] 12/19/24 18:00 12/22/24 18:27 0.5 MG Norepinephrine Bitartrate 250 ml @ 3.75 mls/hr Q24H IV 12/19/24 13:30 12/20/24 02:41 3.75 MLS/HR Pantoprazole Sodium 40 mg DAILY IV 12/21/24 10:00 12/22/24 09:16 40 MG Enoxaparin Sodium 40 mg DAILY SC 12/21/24 10:00 12/22/24 09:15 40 MG Propofol 100 ml @ 4.059 mls/ hr Q24H IV 12/21/24 08:15 12/22/24 09:37 12.177 MLS/HR Piperacillin Sod/ Tazobactam Sod 100 ml @ 25 mls/hr Q6HR IV 12/21/24 12:00 12/22/24 17:34 25 MLS/HR Polyethylene Glycol 17 gm DAILY PO 12/22/24 10:00 12/22/24 09:14 17 GM Docusate Sodium 100 mg BID GT 12/22/24 10:00 12/22/24 09:15 100 MG Acetaminophen 325 mg Q4HP PRN PO 12/22/24 08:15 Folic Acid 1 mg/ Magnesium Sulfate 8 meq/ Multivitamins 10 ml/Thiamine HCl 100 mg/Sodium Chloride 1,013.2 ml @ 126.247 mls/hr DAILY@1800 INJ 12/22/24 18:00 12/22/24 18:09 126.247 MLS/HR Enteral Nutritional Formula 1,000 ml 60ML/HR GT 12/22/24 11:15 laboratory and microbiology Laboratory Tests 12/22/24 03:00 Test 12/22/24 03:00 Range/Units Serum Glucose 103 74-106 mg/dL Microbiology Date/Time Source Procedure Growth Status 12/21/24 11:10 Nose MRSA Screen - Final Complete 12/20/24 17:00 Voided Urine Urine Culture - Preliminary Resulted 12/20/24 10:38 Blood Blood Culture - Preliminary NO GROWTH AFTER 48 HOURS OF INCUBATION. Resulted 12/18/24 20:40 Sputum Gram Stain - Final Complete 12/18/24 20:40 Sputum Respiratory Culture - Final Complete Labs and/or images reviewed: Labs reviewed by me, Image(s) reviewed by me Problem List/Assessment/Plan Problem List/Assessment/Plan Neurology # acute likely toxic versus metabolic encephalopathy # new onset? Breakthrough grand mal seizures # medication nonadherence # possible alcohol withdrawal, unable to calculate CIWA # Sedated - Versed 15 - propofol 15 - fentanyl to 225 - serum valproic acid levels below normal 22.1 - IV levetiracetam 1500 mg b.i.d. - IV lorazepam as needed for seizures - head CT: No evidence of acute intracranial abnormality. If symptoms persist, consider MRI for further evaluation. - neurology on board - brain MRI: No evidence of acute infarction, intracranial hemorrhage, mass effect or hydrocephalus. No effects of mesial temporal sclerosis. Pansinusitis. Prominent bilateral cervical lymph nodes. - last seizure 12/19/2024 around 6:00 p.m. - brain EEG largely unremarkable - IV banana bag, IV thiamine, IV folic acid Cardiovascular # essential hypertension # sedation related hypotension on mechanical ventilation - stopped IV NS at 60 cc/hour - Levophed at 1 mcg Respiratory # Acute hypoxic respiratory failure secondary to intractable seizures # probable aspiration pneumonia # Ventilator - intubated 12/18/2024 - on [facility] vent : VCAC Mode RR 18 TV 550ml, PEEP Of 5 and FiO2 of 60% - ipratropium and albuterol med nebs - CXR: Hypoinflated lungs with bibasilar atelectasis - started on IV Zosyn 12/21/2024 GI # transaminitis # Peptic ulcer prophylaxis # vitamin B12 deficiency -Pantoprazole 40 mg IV daily - negative hepatitis-B and hepatitis-C - repleted with 1000 mcg B12 # Reed catheter placed on 12/18/2024 Nephrology # hypernatremia, now improved # hypokalemia, now improved Infectious disease # aspiration pneumonia # sepsis due to above - pancultures - IV Zosyn - Tylenol as needed for fever - monitor Hem/onc # microcytic anemia, mild - monitor Psychiatry # substance use disorder - we will consider Psychiatry consult once patient is extubated DVT prophylaxis - Lovenox 40 mg subcutaneous daily Nutrition - tube feedings started on 12/21/2024 Lines Right IJ placed on 12/18/2024 Left arm 20 gauge placed on 12/17/2024 Right arm 20 gauge placed on 12/18/2024 Drips - Versed 15 - fentanyl 225 - propofol 15 Critical care time 83 minutes excluding procedure. Code status discussed greater than 20 minutes: Full CODE STATUS. Plan discussed with Dr. Iqbal Plan discussed with: Other (pathients mother) My Orders My Orders Orders - STUART SAGASTUME RESIDENT Procedure Category Date Status Time Polyethylene Glycol PHA 12/22/24 In Process 17g Powder (Miralax 10:00 Docusate Sodium PHA 12/22/24 In Process Liquid (Colace Liquid) 10:00 Acetaminophen Tablet PHA 12/22/24 In Process (Tylenol Tablet) 08:15 Folic Acid... PHA 12/22/24 In Process 18:00 Nutritional PHA 12/22/24 In Process Supplements (Vital 11:15 Complete Blood Count LAB 12/23/24 Verified 04:00 Basic Metabolic Panel LAB 12/23/24 Verified 04:00 Dietary Evaluation Review Comments: 1) Continue TPN to meet at least 75% estimated needs 2) TF Vital High Protein @ 60ml/hr(goal) with current rate of propofol. TF at goal volume together with propofol provides 2471 kcal (100% eenrgy needs) & 126 gm protein (100% protein needs) 3) Monitor TPN tolerance, lab values, I/O, wt trend Expected Outcomes/Goals: To meet >75% estimated needs Fu 2-3 days Date of Service: Dec 22, 2024 Billing Provider: ANTHONY IQBAL MD Common Visit Codes: 62287-[id number] CARE 30-74 MIN, 74126-[id number] CARE-EACH +30MIN STUART SAGASTUME Dec 22, 2024 20:30 ANTHONY IQBAL MD Dec 23, 2024 12:07
[2024-12-22] MEDS: DEXTROSE (50%) 50ML SYRG IV SCH (23:25)
[2024-12-23] VITALS (105 sets, daily range): BP systolic 100–168; BP diastolic 42–99; PULSE 83–115; RESP 12–30; TEMP 98.8–100.6; O2SAT 30–100
[2024-12-23 04:09] LABS: Chloride 104 mmol/L (98-107); Potassium 3.8 mmol/L (3.5-5.1); Sodium 142 mmol/L (136-145)
[2024-12-23 04:10] LABS: Anion Gap 8 (5-15); Calcium 8.9 mg/dL (8.7-10.4); Carbon Dioxide 30 mmol/L (20-31)
[2024-12-23 04:15] LABS: BUN/Creatinine Ratio 13.3 (10.0-20.0); Blood Urea Nitrogen 6 mg/dL (9-23); Glucose 96 mg/dL (74-106)
[2024-12-23 04:16] LABS: Hematocrit 34.2 % (41.0-53.0); Hemoglobin 11.5 g/dL (13.5-17.5); Mean Corpuscular Hemoglobin 30.7 pg (28.0-32.0); Mean Corpuscular Volume 90.9 fL (80.0-100.0); Nucleated Red Blood Cells % 0.0 %
--- NOTE | 2024-12-23 05:43 | DVH ---
CHEST RADIOGRAPH Indication: pns Technique: Single frontal view of the chest was obtained COMPARISON: XY CHEST PORTABLE on DOS: 12/22/24, XY CHEST PORTABLE on DOS: 12/21/24, XY CHEST PORTABLE on DOS: 12/20/24, XY CHEST XRAY 1 VIEW on DOS: 12/20/24, XY CHEST PORTABLE on DOS: 12/19/24 FINDINGS: Lines and Tubes: Slight interval advancement of the endotracheal tube such that the tip now projects approximately 2.0 cm above the level of the rogers. Remaining lines and tubes are unchanged. Lungs: Slight interval progression in multifocal predominantly bibasilar pulmonary airspace disease w ith diffuse increased prominence of the pulmonary vasculature stable in appearance. Small bilateral p leural effusions are unchanged. No pneumothorax. Cardiomediastinal contours: Unremarkable Bones: Unremarkable IMPRESSION: 1. Slight interval progression in multifocal predominantly bibasilar pulmonary airspace disease. 2. Stable diffuse increased prominence of the pulmonary vasculature and small bilateral pleural effus ions. 3. Slight interval advancement of the endotracheal tube such that the tip now projects approximately 2.0 cm above the level of the rogers. Remaining lines and tubes unchanged.
[2024-12-23] MEDS ORDERED: VANCOMYCIN PER PHARMACY 0 MG IV SCH (08:00)
[2024-12-23 08:11] LABS: Base Excess 4.4 mmol/L (-2.0-3.0)
--- NOTE | 2024-12-23 09:51 | DVHPN2 ---
Progress Note - Dictate Date Seen: Dec 23, 2024 Medical Necessity Reason Pt with a Central, PICC or Fol: Yes The following are medically ne: Reed Catheter Reason for reed catheter: Strict I&O Subjective Mr. Perry is a 24 years old right-handed gentleman with a history of hypertension, pain syndrome, substance abuse, he was admitted to the [facility] on 12/17/2024 for new onset seizure activity. I have seen and examined the patient, discussed with his nurses. He is sedated, intubated, he has good gag reflex but no responsive to painful stimuli (was responsive to painful stimuli earlier this morning) With less sedation, the patient is status have shivering like activity. Per my observation, it was mild myoclonus like activity in the stomach, meanwhile, the pupils are very small and nonreactive, the activity was not typical to seizure Versed 14 mg/hour, propofol 0mcg/minutes, fentanyl 200 mcg/hour Urinalysis, 12/17/2024: Unremarkable Urine drug screening, 12/17/2024: Benzo Valproic acid, 12/17/2024: 22.1 Plasma alcohol, 12/17/2024: <3 ABG, 12/18/2024: Respiratory acidosis, 12/20/2024: Acidosis WBC/HB/PLT/MCV, 12/20/2024: 8/12.4/233/90.4 CMP 12/18/2024: Unremarkable TBI/AST/ALT/AP, 12/20/2024: 0.7/44/45/143 EEG, 12/19/2019 10/26/24 13:15: Normal Chest x-ray 12/18/2024: Endotracheal tube 0.7 cm above the rogers. Nasogastric tube in the proximal stomach CT head, 12/17/2024: No evidence of acute intracranial abnormality. If symptoms persist, consider MRI for further evaluation MR head, 12/21/2024: No evidence of acute infarction, intracranial hemorrhage, mass effect or hydrocephalus. No evidence of mesial temporal sclerosis. Pansinusitis. Prominent bilateral cervical lymph nodes. This can be further evaluated with ultrasound (? DWI images 30, 14) vital signs Vital Sign Date Time Temp Pulse Resp B/P (MAP) Pulse Ox O2 Delivery O2 Flow Rate FiO2 12/23/24 08:03 90 20 120/57 (78) 98 30 7/10/25 06:30 99.5 211.1 12/23/24 06:00 Mechanical Ventilator+ Total Intake and Output 12/22/24 12/22/24 12/23/24 15:00 23:00 07:00 Intake Total 823.121 ml 1679.235 ml 1192.241 ml Output Total 1800 ml 1400 ml Balance 823.121 ml -120.765 ml -207.759 ml medications Current Medications Medications Dose Ordered Sig/Rick Route Start Time Stop Time Status Last Admin Dose Admin Ondansetron HCl 4 mg Q4HP PRN IV 12/18/24 00:00 Levetiracetam 100 ml @ 400 mls/hr BID IV 12/18/24 22:00 12/23/24 09:14 400 MLS/HR Lorazepam 1 mg Q5MINP PRN IV 12/18/24 11:00 12/23/24 08:43 1 MG Midazolam HCl 50 ml @ 1 mls/hr Q24H IV 12/18/24 21:15 12/23/24 05:10 14 MLS/HR Fentanyl Citrate 250 ml @ 2.5 mls/hr Q24H IV 12/18/24 23:15 12/22/24 22:30 17.5 MLS/HR Diagnostic Test (Pha) 1 strip Q6HR 12/19/24 12:00 12/23/24 05:09 1 STRIP Insulin Human Regular FOLLOW SLIDING SCALE Q6HR SC 12/19/24 12:00 Dextrose 50 ml UD IV 12/19/24 10:00 12/22/24 23:25 50 ML Albuterol 2.5 mg Q6HR NEB 12/19/24 18:00 12/23/24 06:30 2.5 MG Ipratropium [place] 0.5 mg Q6HR NEB 12/19/24 18:00 12/23/24 06:30 0.5 MG Norepinephrine Bitartrate 250 ml @ 3.75 mls/hr Q24H IV 12/19/24 13:30 12/20/24 02:41 3.75 MLS/HR Pantoprazole Sodium 40 mg DAILY IV 12/21/24 10:00 12/23/24 09:14 40 MG Enoxaparin Sodium 40 mg DAILY SC 12/21/24 10:00 12/23/24 09:14 40 MG Propofol 100 ml @ 4.059 mls/ hr Q24H IV 12/21/24 08:15 12/22/24 09:37 12.177 MLS/HR Piperacillin Sod/ Tazobactam Sod 100 ml @ 25 mls/hr Q6HR IV 12/21/24 12:00 12/23/24 05:09 25 MLS/HR Polyethylene Glycol 17 gm DAILY PO 12/22/24 10:00 12/23/24 09:14 17 GM Docusate Sodium 100 mg BID GT 12/22/24 10:00 12/23/24 09:14 100 MG Acetaminophen 325 mg Q4HP PRN PO 12/22/24 08:15 Folic Acid 1 mg/ Magnesium Sulfate 8 meq/ Multivitamins 10 ml/Thiamine HCl 100 mg/Sodium Chloride 1,013.2 ml @ 126.247 mls/hr DAILY@1800 INJ 12/22/24 18:00 12/22/24 18:09 126.247 MLS/HR Enteral Nutritional Formula 1,000 ml 60ML/HR GT 12/22/24 11:15 Vancomycin HCl 0 ml @ 0 mls/hr UD IV 12/23/24 08:00 Vancomycin HCl 250 ml @ 250 mls/hr Q1H IV 12/23/24 09:00 12/23/24 10:59 objective The patient is well-nourished and well-developed with no distress. The patient is intubated MENTAL STATUS: Subjective CRANIAL NERVES: Pupils are equal, round and nonreactive, small. There are corneal reflexes and doll's eyes phenomenon. No signs of facial weakness. There are gagging or coughing reflexes SENSATION: No responses to pain stimuli. MOTOR: Normal tone in the upper and lower extremity. Normal muscle bulk. No fasciculations. No spontaneous movement. REFLEXES: Deep tendon reflexes are symmetrical. No pathological reflexes. CEREBELLAR/COORDINATION: Deferred GAIT/STATION: deferred laboratory and microbiology Laboratory Tests 12/23/24 03:00 Test 12/23/24 03:00 Range/Units Serum Glucose 96 74-106 mg/dL Problem List Come Metabolic encephalopathy Hypoxic encephalopathy Toxic encephalopathy ? Status epileptics New onset seizure, status epileptics Likely secondary to substance abuse Rule out epileptic seizure or other acute symptomatic seizure The activity witnessed on 12/23/2024 was not typical to seizure, likely myoclonus Substance abuse ? Depression Respiratory failure Assessment/Plan Monitoring Supportive treatment Telemetry Follow-up lab ICU care Stabilize vitals/pressor drip Respiratory support/vent management Ativan for seizure breakthrough Need history from him directly Keppra 1500 mg IV b.i.d. for the time being, he may not need preventive seizure treatment Consider tele psych consultation Re: The previous substance abuse later More recommendation per clinical course This medical document was created using an electronic medical record system with [employer] dictation system. Although this document has been carefully reviewed, there may still be some phonetic and typographical errors. These areas are purely typographical due to imperfections of the software programs, and do not reflect any compromise in the patient's medical care. Prognosis guarded Dietary Evaluation Review Comments: 1) Continue TPN to meet at least 75% estimated needs 2) TF Vital High Protein @ 60ml/hr(goal) with current rate of propofol. TF at goal volume together with propofol provides 2471 kcal (100% eenrgy needs) & 126 gm protein (100% protein needs) 3) Monitor TPN tolerance, lab values, I/O, wt trend Expected Outcomes/Goals: To meet >75% estimated needs Fu 2-3 days Plan discussed with: Other Critical Care Time(min): 30 BONNY PEREZ MD Dec 23, 2024 09:51
[2024-12-23] MEDS: VANCOMYCIN 1GM/200ML PM 250 ML IV SCH (11:02)
[2024-12-23] MEDS: SODIUM CHLORIDE 0.9% 1,000 ML IV SCH (11:04)
[2024-12-23] MEDS: FUROSEMIDE 20 MG/2 ML VIAL IV ONE (12:32)
--- NOTE | 2024-12-23 16:52 | DVHSR ---
APPROVED REPORT EXAM: Two-dimensional and M-mode echocardiogram with Doppler and color Doppler. Blood Pressure: 121/65 mmHg INDICATION Eval for diastolic HF RISK FACTORS Height: 65, Weight: 316 DIMENSIONS LVDd5.5 (3.8-5.7cm)LA (2D) (1.9-4.0cm)Aortic Root3.2 (2.0-3.7cm) LVDs3.5 (2.5-4.0cm)LA (MM) (1.9-4.0cm)Aortic Cusp Exc2.1 (1.5-2.0cm) EF (%) 65.0 (55-70%)Rt. Atrium (1.9-4.0cm)Asc. Aorta cm Mitral Valve MitralMitral Stenosis E wave0.87m/sMV Mean GR.mmHg E/A ratio0.02D MVAcm2 Aortic Valve Aortic ValveAortic Stenosis V10.86m/Laura Mean GR.5mmHg V21.58m/Laura Peak GR.10mmHg LVOT Diameter2.4 (1.8-2.4cm)Doppler AVA2.46cm2 Pulmonic Valve V21.17m/s Tricuspid Valve TR Velocity2.35m/s [id number] Conclusion Technically difficult study. Difficult acoustic windows. Undetermined rhythm. Mild concentric LVH with mild left atrial enlargement. Valves appear to be structurally normal. Left ventricular function is preserved at 60% with normal RV function. Dopplers unremarkable. No pericardial effusion masses or vegetations.
--- NOTE | 2024-12-23 18:26 | DVHPNRES ---
Progress Note Date Seen: Dec 23, 2024 Resident Creating Document: STUART SAGASTUME RESIDENT Medical Necessity Reason Pt with a Central, PICC or Fol: Yes The following are medically ne: Reed Catheter Reason for reed catheter: Strict I&O Subjective Review of Systems Patient is a 24-year-old male with past medical history of hypertension, chronic pain, substance abuse disorder, who was brought in due to new onset seizures. Patient is sedated and mechanically ventilated, history was obtained from patient's mother Ms. Sabillon via telephone. According to the patient's mother, patient has been abusing laughing gas heavily for some time, patient went to by laughing gas on Friday12/15/2024 and used it with his friend where according to the friend patient consumed most of the canister. Patient's mom took him to the rehab on 12/16/2024 where he had a seizure and was taken to the hospital and subsequently discharged back to the rehab facility. On patient again started having seizures which is when he was taken to the hospital again and was subsequently intubated. Patient reported saying he is prescribed Depakote but he has been noncompliant, serum valproic levels were below therapeutic range at 22.1 Past surgical history: Denies Smoking: Uses tobacco vaporizer pen heavily daily Alcohol: Remote history of heavy alcohol use Drugs: Mother is unsure, however, notes he may have history of cocaine abuse and MDMA abuse Previously patient was living in a rented home with a roommate, for the last 1 week was living with mother. Review of systems could not be completed due to patient being sedated and mechanically ventilated. 12/21/24: Patient seen and examined at bedside. Noted to have some fevers and mild increase in leukocytosis, started on IV Zosyn. Mom and sister at bedside, details of illness explained, all questions answered and concerns addressed. 12/22/24: Patient seen and examined, plan to cpap trial tomorrow. : Overnight when Versed was decreased, patient was noted to have 3 seizures and then another seizure in the a.m., resumed Versed at 14 micrograms/hour. CPAP trial could not be completed. Added vancomycin. Objective vital signs Vital Sign Date Time Temp Pulse Resp B/P (MAP) Pulse Ox O2 Delivery O2 Flow Rate FiO2 12/23/24 16:00 86 12/23/24 16:00 20 97 Mechanical Ventilator+ 30 30 30 12/23/24 15:54 110/59 (76) 12/23/24 14:30 99.3 210.7 Total Intake and Output 12/22/24 12/22/24 12/23/24 15:00 23:00 07:00 Intake Total 823.121 ml 1679.235 ml 1251.241 ml Output Total 1800 ml 1400 ml Balance 823.121 ml -120.765 ml -148.759 ml medications Current Medications Medications Dose Ordered Sig/Rick Route Start Time Stop Time Status Last Admin Dose Admin Levetiracetam 100 ml @ 400 mls/hr BID IV 12/18/24 22:00 12/23/24 09:14 400 MLS/HR Lorazepam 1 mg Q5MINP PRN IV 12/18/24 11:00 12/23/24 08:43 1 MG Midazolam HCl 50 ml @ 1 mls/hr Q24H IV 12/18/24 21:15 12/23/24 16:23 14 MLS/HR Fentanyl Citrate 250 ml @ 2.5 mls/hr Q24H IV 12/18/24 23:15 12/23/24 11:20 20 MLS/HR Diagnostic Test (Pha) 1 strip Q6HR 12/19/24 12:00 12/23/24 12:00 1 STRIP Insulin Human Regular FOLLOW SLIDING SCALE Q6HR SC 12/19/24 12:00 Dextrose 50 ml UD IV 12/19/24 10:00 12/22/24 23:25 50 ML Albuterol 2.5 mg Q6HR NEB 12/19/24 18:00 12/23/24 18:11 2.5 MG Ipratropium [place] 0.5 mg Q6HR NEB 12/19/24 18:00 12/23/24 18:11 0.5 MG Pantoprazole Sodium 40 mg DAILY IV 12/21/24 10:00 12/23/24 09:14 40 MG Enoxaparin Sodium 40 mg DAILY SC 12/21/24 10:00 12/23/24 09:14 40 MG Piperacillin Sod/ Tazobactam Sod 100 ml @ 25 mls/hr Q6HR IV 12/21/24 12:00 12/23/24 12:24 25 MLS/HR Polyethylene Glycol 17 gm DAILY PO 12/22/24 10:00 12/23/24 09:14 17 GM Docusate Sodium 100 mg BID GT 12/22/24 10:00 12/23/24 09:14 100 MG Acetaminophen 325 mg Q4HP PRN PO 12/22/24 08:15 Enteral Nutritional Formula 1,000 ml 60ML/HR GT 12/22/24 11:15 Vancomycin HCl 0 ml @ 0 mls/hr UD IV 12/23/24 08:00 Thiamine HCl 100 mg DAILY IV 12/24/24 10:00 Folic Acid 1 mg/ Dextrose 50.2 ml @ 200.8 mls/ hr DAILY INJ 12/24/24 10:00 Vancomycin HCl 200 ml @ 200 mls/hr Q8H IV 12/23/24 22:00 Examination General Appearance: Sedated and mechanically ventilated obese adult. Constricted pupils. Pulmonary/Respiratory: Coarse bilateral breath sounds Cardiovascular/Chest: Tachycardia Peripheral Pulses: 2+ Pedal (R). 2+ Pedal (L) Abdominal Exam: Normal bowel sounds. Soft. normal abdomen, no visible veins, Nontender. No hepatospenomegaly. No masses Lower extremities: Negative lower extremity edema Skin Exam: Normal inspection. Normal color. Dry. Cool peripheral extremities laboratory and microbiology Laboratory Tests 12/23/24 03:00 Test 12/23/24 03:00 Range/Units Serum Glucose 96 74-106 mg/dL Microbiology Date/Time Source Procedure Growth Status 12/21/24 11:10 Nose MRSA Screen - Final Complete 12/20/24 17:00 Voided Urine Urine Culture - Final Complete 12/20/24 10:38 Blood Blood Culture - Preliminary NO GROWTH AFTER 72 HOURS OF INCUBATION. Resulted 12/18/24 20:40 Sputum Gram Stain - Final Complete 12/18/24 20:40 Sputum Respiratory Culture - Final Complete Labs and/or images reviewed: Labs reviewed by me, Image(s) reviewed by me Problem List/Assessment/Plan Problem List/Assessment/Plan Neurology # acute likely toxic versus metabolic encephalopathy # new onset? Breakthrough grand mal seizures # medication nonadherence # possible alcohol withdrawal, unable to calculate CIWA # Sedated - Versed 14 - fentanyl to 200 - serum valproic acid levels below normal 22.1 - IV levetiracetam 1500 mg b.i.d. - IV lorazepam as needed for seizures - head CT: No evidence of acute intracranial abnormality. If symptoms persist, consider MRI for further evaluation. - neurology on board - brain MRI: No evidence of acute infarction, intracranial hemorrhage, mass effect or hydrocephalus. No effects of mesial temporal sclerosis. Pansinusitis. Prominent bilateral cervical lymph nodes. - last seizure 12/19/2024 around 6:00 p.m. - brain EEG largely unremarkable - IV banana bag, IV thiamine, IV folic acid Cardiovascular # essential hypertension # sedation related hypotension on mechanical ventilation - stopped IV NS at 60 cc/hour Respiratory # Acute hypoxic respiratory failure secondary to intractable seizures # probable aspiration pneumonia # Ventilator - intubated 12/18/2024 - on [facility] vent : VCAC Mode RR 20 TV 550ml, PEEP Of 5 and FiO2 of 60% - ipratropium and albuterol med nebs - CXR: Hypoinflated lungs with bibasilar atelectasis - started on IV Zosyn 12/21/2024 - started IV vancomycin per pharmacy on 12/23/2024 GI # transaminitis # Peptic ulcer prophylaxis # vitamin B12 deficiency -Pantoprazole 40 mg IV daily - negative hepatitis-B and hepatitis-C - repleted with 1000 mcg B12 # Reed catheter placed on 12/18/2024 Nephrology # hypernatremia, now improved # hypokalemia, now improved Infectious disease # aspiration pneumonia # sepsis due to above - pancultures - IV Zosyn - IV vancomycin per pharmacy - Tylenol as needed for fever - monitor Hem/onc # microcytic anemia, mild - monitor Psychiatry # substance use disorder - we will consider Psychiatry consult once patient is extubated DVT prophylaxis - Lovenox 40 mg subcutaneous daily Nutrition - tube feedings started on 12/21/2024 Lines Right IJ placed on 12/18/2024 Left arm 20 gauge placed on 12/17/2024 Right arm 20 gauge placed on 12/18/2024 Drips - Versed 14 - fentanyl 200 Critical care time 83 minutes excluding procedure. Code status discussed greater than 20 minutes: Full CODE STATUS. Plan discussed with Dr. Iqbal Plan discussed with: Other (RN) My Orders My Orders Orders - STUART SAGASTUME RESIDENT Procedure Category Date Status Time Chest Portable XY 12/23/24 Resulted 04:00 Abg W/ Co-Ox RT 12/23/24 Logged 04:00 Vancomycin Per PHA 12/23/24 In Process Pharmacy 08:00 Echo 2d Mode Cardiac US 12/23/24 Resulted DOP 12:17 Vancomycin 1gm/200ml PHA 12/23/24 In Process Pm 22:00 Vancomycin Per [facility] 12/24/24 In Process Pharmacy Protoc 21:00 Complete Blood Count LAB 12/24/24 Verified 04:00 Creatinine LAB 12/24/24 Verified 04:00 Vancomycin,Trough LAB 12/24/24 Verified 21:00 Comprehensive LAB 12/24/24 Verified Metabolic Panel 04:00 Creatine Kinase LAB 12/24/24 Verified 04:00 Chest Portable XY 12/24/24 Verified 04:00 Abg W/ Co-Ox RT 12/24/24 Verified 04:00 Dietary Evaluation Review Comments: 1) Continue TPN to meet at least 75% estimated needs 2) TF Vital High Protein @ 60ml/hr(goal) with current rate of propofol. TF at goal volume together with propofol provides 2471 kcal (100% eenrgy needs) & 126 gm protein (100% protein needs) 3) Monitor TPN tolerance, lab values, I/O, wt trend Expected Outcomes/Goals: To meet >75% estimated needs Fu 2-3 days Date of Service: Dec 23, 2024 Billing Provider: ANTHONY IQBAL MD Common Visit Codes: 99696-[id number] CARE 30-74 MIN, [id number] CARE-EACH +30MIN STUART SAGASTUME Dec 23, 2024 18:26 ANTHONY IQBAL MD Dec 26, 2024 11:11
[2024-12-23] MEDS: ACETAMINOPHEN 325 MG TAB PO PRN (20:56)
[2024-12-23] MEDS: VANCOMYCIN 1GM/200ML PM 200 ML IV SCH (20:57)
[2024-12-23] MEDS: Vital High Protein 1liter Bottle GT SCH (23:03)
[2024-12-24] VITALS (105 sets, daily range): BP systolic 98–151; BP diastolic 46–89; PULSE 81–116; RESP 12–46; TEMP 98.2–100.9; O2SAT 74–100
[2024-12-24 03:03] LABS: Hematocrit 31.5 % (41.0-53.0); Hemoglobin 10.6 g/dL (13.5-17.5); Mean Corpuscular Hemoglobin 30.4 pg (28.0-32.0); Mean Corpuscular Volume 90.0 fL (80.0-100.0); Nucleated Red Blood Cells % 0.0 %
[2024-12-24 03:06] LABS: Alanine Aminotransferase 39 U/L (7-40); Albumin 3.7 g/dL (3.2-4.8); Anion Gap 7 (5-15); BUN/Creatinine Ratio 20.9 (10.0-20.0); Calcium 8.9 mg/dL (8.7-10.4); Chloride 103 mmol/L (98-107); Glucose 94 mg/dL (74-106); Potassium 3.6 mmol/L (3.5-5.1); Sodium 142 mmol/L (136-145); Total Protein 6.4 g/dL (5.7-8.2)
[2024-12-24 03:07] LABS: Bilirubin, Total 0.5 mg/dL (0.2-1.0)
[2024-12-24 03:22] LABS: Alkaline Phosphatase 140 U/L (46-116); Blood Urea Nitrogen 9 mg/dL (9-23); Carbon Dioxide 32 mmol/L (20-31); Creatine Kinase IFCC 1263 U/L (46-171)
--- NOTE | 2024-12-24 05:56 | DVH ---
CHEST RADIOGRAPH Indication: pna Technique: Single frontal view of the chest was obtained COMPARISON: XY CHEST PORTABLE on DOS: 12/23/24, XY CHEST PORTABLE on DOS: 12/22/24, XY CHEST PORTABLE on DOS: 12/21/24, XY CHEST PORTABLE on DOS: 12/20/24, XY CHEST XRAY 1 VIEW on DOS: 12/20/24 FINDINGS: Lines and Tubes: Unchanged. Lungs: Grossly stable appearing multifocal bilateral pulmonary airspace disease, predominating within the lung bases. Small bilateral pleural effusions are slightly improved when compared to the prior e xam. No pneumothorax. Cardiomediastinal contours: Unremarkable Bones: Unremarkable IMPRESSION: 1. Slight interval improvement in small bilateral pleural effusions. 2. Stable appearing multifocal bilateral pulmonary airspace disease. 3. Lines and tubes unchanged.
[2024-12-24 07:11] LABS: Base Excess 4.4 mmol/L (-2.0-3.0)
[2024-12-24] MEDS: THIAMINE 100mg/ml INJ (200mg/2ml VIAL) IV SCH (09:22)
[2024-12-24] MEDS: FOLIC ACID 1 MG in D5W 5% 50 ML INJ SCH (09:22)
[2024-12-24 10:48] LABS: INR 1.03 (0.9-1.15); Partial Thromboplastin Time 29.9 SEC (24.5-34.5); Prothrombin Time 10.9 sec (9.3-11.8)
--- NOTE | 2024-12-24 14:14 | DVHPNRES ---
Progress Note Date Seen: Dec 24, 2024 Resident Creating Document: STUART SAGASTUME Medical Necessity Reason Pt with a Central, PICC or Fol: Yes The following are medically ne: Reed Catheter Reason for reed catheter: Strict I&O Subjective Review of Systems Patient is a 24-year-old male with past medical history of hypertension, chronic pain, substance abuse disorder, who was brought in due to new onset seizures. Patient is sedated and mechanically ventilated, history was obtained from patient's mother Ms. Sabillon via telephone. According to the patient's mother, patient has been abusing laughing gas heavily for some time, patient went to by laughing gas on Friday12/15/2024 and used it with his friend where according to the friend patient consumed most of the canister. Patient's mom took him to the rehab on 12/16/2024 where he had a seizure and was taken to the hospital and subsequently discharged back to the rehab facility. On patient again started having seizures which is when he was taken to the hospital again and was subsequently intubated. Patient reported saying he is prescribed Depakote but he has been noncompliant, serum valproic levels were below therapeutic range at 22.1 Past surgical history: Denies Smoking: Uses tobacco vaporizer pen heavily daily Alcohol: Remote history of heavy alcohol use Drugs: Mother is unsure, however, notes he may have history of cocaine abuse and MDMA abuse Previously patient was living in a rented home with a roommate, for the last 1 week was living with mother. Review of systems could not be completed due to patient being sedated and mechanically ventilated. 12/21/24: Patient seen and examined at bedside. Noted to have some fevers and mild increase in leukocytosis, started on IV Zosyn. Mom and sister at bedside, details of illness explained, all questions answered and concerns addressed. 12/22/24: Patient seen and examined, plan to cpap trial tomorrow. 12/23/24: Overnight when Versed was decreased, patient was noted to have 3 seizures and then another seizure in the a.m., resumed Versed at 14 micrograms/hour. CPAP trial could not be completed. Added vancomycin. 12/24/2024: No further seizures. When down on fentanyl to 275, Versed 213, off of propofol right now. Patient is somewhat responsive and we will periodically move extremities. Chest x-ray showed slight improvement in bilateral effusions and stable airspace disease. Discontinued vancomycin. Creatinine kinase decreased to 1263. Objective vital signs Vital Sign Date Time Temp Pulse Resp B/P (MAP) Pulse Ox O2 Delivery O2 Flow Rate FiO2 12/24/24 13:34 89 20 109/54 (72) 95 30 12/24/24 12:00 Mechanical Ventilator+ 30 12/24/24 11:15 98.8 209.8 Total Intake and Output 12/23/24 12/23/24 12/24/24 15:00 23:00 07:00 Intake Total 997 ml 1406.5 ml 2455 ml Output Total 2200 ml 1200 ml Balance 997 ml -793.5 ml 1255 ml medications Current Medications Medications Dose Ordered Sig/Rick Route Start Time Stop Time Status Last Admin Dose Admin Levetiracetam 100 ml @ 400 mls/hr BID IV 12/18/24 22:00 12/24/24 09:24 400 MLS/HR Lorazepam 1 mg Q5MINP PRN IV 12/18/24 11:00 12/23/24 08:43 1 MG Midazolam HCl 50 ml @ 1 mls/hr Q24H IV 12/18/24 21:15 12/24/24 12:06 13 MLS/HR Fentanyl Citrate 250 ml @ 2.5 mls/hr Q24H IV 12/18/24 23:15 12/24/24 07:11 35 MLS/HR Diagnostic Test (Pha) 1 strip Q6HR 12/19/24 12:00 12/24/24 12:03 1 STRIP Insulin Human Regular FOLLOW SLIDING SCALE Q6HR SC 12/19/24 12:00 Dextrose 50 ml UD IV 12/19/24 10:00 12/22/24 23:25 50 ML Albuterol 2.5 mg Q6HR NEB 12/19/24 18:00 12/24/24 11:40 2.5 MG Ipratropium [place] 0.5 mg Q6HR NEB 12/19/24 18:00 12/24/24 11:40 0.5 MG Pantoprazole Sodium 40 mg DAILY IV 12/21/24 10:00 12/24/24 09:22 40 MG Enoxaparin Sodium 40 mg DAILY SC 12/21/24 10:00 12/24/24 09:22 40 MG Piperacillin Sod/ Tazobactam Sod 100 ml @ 25 mls/hr Q6HR IV 12/21/24 12:00 12/24/24 11:36 25 MLS/HR Polyethylene Glycol 17 gm DAILY PO 12/22/24 10:00 12/24/24 09:22 17 GM Docusate Sodium 100 mg BID GT 12/22/24 10:00 12/24/24 09:22 100 MG Acetaminophen 325 mg Q4HP PRN PO 12/22/24 08:15 12/24/24 03:25 325 MG Enteral Nutritional Formula 1,000 ml 60ML/HR GT 12/22/24 11:15 12/23/24 23:03 1,000 ML Vancomycin HCl 0 ml @ 0 mls/hr UD IV 12/23/24 08:00 Thiamine HCl 100 mg DAILY IV 12/24/24 10:00 12/24/24 09:22 100 MG Folic Acid 1 mg/ Dextrose 50.2 ml @ 200.8 mls/ hr DAILY INJ 12/24/24 10:00 12/24/24 09:22 200.8 MLS/HR Vancomycin HCl 200 ml @ 200 mls/hr Q8H IV 12/23/24 22:00 12/24/24 13:30 200 MLS/HR Propofol 100 ml @ 4.311 mls/ hr [id number] IV 12/24/24 04:00 Examination General Appearance: Sedated and mechanically ventilated obese adult. Constricted pupils. Pulmonary/Respiratory: Coarse bilateral breath sounds Cardiovascular/Chest: Tachycardia Peripheral Pulses: 2+ Pedal (R). 2+ Pedal (L) Abdominal Exam: Normal bowel sounds. Soft. normal abdomen, no visible veins, Nontender. No hepatospenomegaly. No masses Lower extremities: Negative lower extremity edema Skin Exam: Normal inspection. Normal color. Dry. Cool peripheral extremities laboratory and microbiology Laboratory Tests 12/24/24 02:30 Test 12/24/24 02:30 Range/Units Serum Glucose 94 74-106 mg/dL Microbiology Date/Time Source Procedure Growth Status 12/21/24 11:10 Nose MRSA Screen - Final Complete 12/20/24 17:00 Voided Urine Urine Culture - Final Complete 12/20/24 10:38 Blood Blood Culture - Preliminary NO GROWTH AFTER 72 HOURS OF INCUBATION. Resulted 12/18/24 20:40 Sputum Gram Stain - Final Complete 12/18/24 20:40 Sputum Respiratory Culture - Final Complete Labs and/or images reviewed: Labs reviewed by me, Image(s) reviewed by me Problem List/Assessment/Plan Problem List/Assessment/Plan Neurology # acute likely toxic versus metabolic encephalopathy # new onset? Breakthrough grand mal seizures # medication nonadherence # possible alcohol withdrawal, unable to calculate CIWA # Sedated - Versed 13 - fentanyl to 275 - serum valproic acid levels below normal 22.1 - IV levetiracetam 1500 mg b.i.d. - IV lorazepam as needed for seizures - head CT: No evidence of acute intracranial abnormality. If symptoms persist, consider MRI for further evaluation. - neurology on board - brain MRI: No evidence of acute infarction, intracranial hemorrhage, mass effect or hydrocephalus. No effects of mesial temporal sclerosis. Pansinusitis. Prominent bilateral cervical lymph nodes. - last seizure 12/19/2024 around 6:00 p.m. - brain EEG largely unremarkable - IV banana bag x2, IV thiamine, IV folic acid Cardiovascular # essential hypertension # sedation related hypotension on mechanical ventilation - stopped IV NS at 60 cc/hour Respiratory # Acute hypoxic respiratory failure secondary to intractable seizures # probable aspiration pneumonia # Ventilator - intubated 12/18/2024 - on [facility] vent : VCAC Mode RR 20 TV 550ml, PEEP Of 5 and FiO2 of 60% - ipratropium and albuterol med nebs - CXR: Hypoinflated lungs with bibasilar atelectasis - started on IV Zosyn 12/21/2024 - started IV vancomycin per pharmacy on 12/23/2024, discontinued vancomycin on 12/24/2024 GI # transaminitis # Peptic ulcer prophylaxis # vitamin B12 deficiency -Pantoprazole 40 mg IV daily - negative hepatitis-B and hepatitis-C - repleted with 1000 mcg B12 # Reed catheter placed on 12/18/2024 Nephrology # hypernatremia, now improved # hypokalemia, now improved - serum creatinine 2159 on 12/23/2024, 1263 on 12/24/2024 - monitor Infectious disease # aspiration pneumonia # sepsis due to above - pancultures - IV Zosyn - discontinued IV vancomycin per pharmacy on 12/24/2024 - Tylenol as needed for fever - monitor Hem/onc # microcytic anemia, mild - monitor Psychiatry # substance use disorder - we will consider Psychiatry consult once patient is extubated DVT prophylaxis - Lovenox 40 mg subcutaneous daily Nutrition - tube feedings started on 12/21/2024 Lines Right IJ placed on 12/18/2024 Left arm 20 gauge placed on 12/17/2024 Right arm 20 gauge placed on 12/18/2024 Drips - Versed 13 - fentanyl 275 Critical care time 83 minutes excluding procedure. Code status discussed greater than 20 minutes: Full CODE STATUS. Plan discussed with Dr. New; we decided to discontinue vancomycin. Plan discussed with patient's mother at bedside, all questions were answered and concerns were addressed. Plan discussed with: Other (Patient's mother, RN) My Orders My Orders Orders - STUART SAGASTUME RESIDENT Procedure Category Date Status Time Vancomycin 1gm/200ml PHA 12/23/24 In Process Pm 22:00 Vancomycin Per [facility]ADIEL 12/24/24 In Process Pharmacy Protoc 21:00 Vancomycin,Trough LAB 12/24/24 Logged 21:00 Chest Portable XY 12/24/24 Resulted 04:00 Abg W/ Co-Ox RT 12/24/24 Logged 04:00 Ventilator Orders RT 12/24/24 Transmitted 05:21 * Picc Line Consult CONS 12/24/24 Transmitted 09:51 Dietary Evaluation Review Comments: 1) Continue TPN to meet at least 75% estimated needs 2) TF Vital High Protein @ 60ml/hr(goal) with current rate of propofol. TF at goal volume together with propofol provides 2471 kcal (100% eenrgy needs) & 126 gm protein (100% protein needs) 3) Monitor TPN tolerance, lab values, I/O, wt trend Expected Outcomes/Goals: To meet >75% estimated needs Fu 2-3 days STUART SAGASTUME RESIDENT Dec 24, 2024 14:14
[2024-12-24] MEDS: LIDOCAINE 1% (LOCAL ANESTH.) PF 5ml SDV ID ONE (16:02)
--- NOTE | 2024-12-24 20:35 | DVHPN2 ---
Progress Note - Dictate Date Seen: Dec 24, 2024 Medical Necessity Reason Pt with a Central, PICC or Fol: Yes The following are medically ne: Reed Catheter Reason for reed catheter: Strict I&O Subjective Mr. Perry is a 24 years old right-handed gentleman with a history of hypertension, pain syndrome, substance abuse, he was admitted to the [facility] on 12/17/2024 for new onset seizure activity. I have seen and examined the patient, discussed with his nurses. He is sedated, intubated, he responsive to light painful stimuli, he blinks and moves the legs, pupils are small and minimally responsive to lights Fentanyl 200 mcg/hour Urinalysis, 12/17/2024: Unremarkable Urine drug screening, 12/17/2024: Benzo Valproic acid, 12/17/2024: 22.1 Plasma alcohol, 12/17/2024: <3 ABG, 12/18/2024: Respiratory acidosis, 12/20/2024: Acidosis WBC/HB/PLT/MCV, 12/20/2024: 8/12.4/233/90.4 CMP 12/18/2024: Unremarkable TBI/AST/ALT/AP, 12/20/2024: 0.7/44/45/143 EEG, 12/19/2019 10/26/24 13:15: Normal Chest x-ray 12/18/2024: Endotracheal tube 0.7 cm above the rogers. Nasogastric tube in the proximal stomach CT head, 12/17/2024: No evidence of acute intracranial abnormality. If symptoms persist, consider MRI for further evaluation MR head, 12/21/2024: No evidence of acute infarction, intracranial hemorrhage, mass effect or hydrocephalus. No evidence of mesial temporal sclerosis. Pansinusitis. Prominent bilateral cervical lymph nodes. This can be further evaluated with ultrasound (? DWI images 30, 14) vital signs Vital Sign Date Time Temp Pulse Resp B/P (MAP) Pulse Ox O2 Delivery O2 Flow Rate FiO2 12/24/24 20:08 90 20 105/57 (73) 96 30 12/24/24 20:00 Mechanical Ventilator+ 30 12/24/24 17:30 100.0 212.0 Total Intake and Output 12/23/24 12/23/24 12/24/24 15:00 23:00 07:00 Intake Total 997 ml 1406.5 ml 2455 ml Output Total 2200 ml 1200 ml Balance 997 ml -793.5 ml 1255 ml medications Current Medications Medications Dose Ordered Sig/Rick Route Start Time Stop Time Status Last Admin Dose Admin Levetiracetam 100 ml @ 400 mls/hr BID IV 12/18/24 22:00 12/24/24 09:24 400 MLS/HR Lorazepam 1 mg Q5MINP PRN IV 12/18/24 11:00 12/23/24 08:43 1 MG Midazolam HCl 50 ml @ 1 mls/hr Q24H IV 12/18/24 21:15 12/24/24 20:08 5 MLS/HR Fentanyl Citrate 250 ml @ 2.5 mls/hr Q24H IV 12/18/24 23:15 12/24/24 15:29 22.5 MLS/HR Diagnostic Test (Pha) 1 strip Q6HR 12/19/24 12:00 12/24/24 18:00 1 STRIP Insulin Human Regular FOLLOW SLIDING SCALE Q6HR SC 12/19/24 12:00 Dextrose 50 ml UD IV 12/19/24 10:00 12/22/24 23:25 50 ML Albuterol 2.5 mg Q6HR NEB 12/19/24 18:00 12/24/24 18:15 2.5 MG Ipratropium Chama 0.5 mg Q6HR [facility] 12/19/24 18:00 12/24/24 18:14 0.5 MG Pantoprazole Sodium 40 mg DAILY IV 12/21/24 10:00 12/24/24 09:22 40 MG Enoxaparin Sodium 40 mg DAILY SC 12/21/24 10:00 12/24/24 09:22 40 MG Piperacillin Sod/ Tazobactam Sod 100 ml @ 25 mls/hr Q6HR IV 12/21/24 12:00 12/24/24 18:00 25 MLS/HR Polyethylene Glycol 17 gm DAILY PO 12/22/24 10:00 12/24/24 09:22 17 GM Docusate Sodium 100 mg BID GT 12/22/24 10:00 12/24/24 09:22 100 MG Acetaminophen 325 mg Q4HP PRN PO 12/22/24 08:15 12/24/24 03:25 325 MG Enteral Nutritional Formula 1,000 ml 60ML/HR GT 12/22/24 11:15 12/23/24 23:03 1,000 ML Thiamine HCl 100 mg DAILY IV 12/24/24 10:00 12/24/24 09:22 100 MG Folic Acid 1 mg/ Dextrose 50.2 ml @ 200.8 mls/ hr DAILY INJ 12/24/24 10:00 12/24/24 09:22 200.8 MLS/HR Propofol 100 ml @ 4.311 mls/ hr [id number] IV 12/24/24 04:00 Sodium Chloride 10 ml QSHIFT@10,22 IV 12/24/24 22:00 objective The patient is well-nourished and well-developed with no distress. The patient is intubated MENTAL STATUS: Subjective CRANIAL NERVES: Pupils are equal, round and nonreactive, small. There are corneal reflexes and doll's eyes phenomenon. No signs of facial weakness. There are gagging or coughing reflexes SENSATION: No responses to pain stimuli. MOTOR: Normal tone in the upper and lower extremity. Normal muscle bulk. No fasciculations. He moves the legs REFLEXES: Deep tendon reflexes are symmetrical. No pathological reflexes. CEREBELLAR/COORDINATION: Deferred GAIT/STATION: deferred laboratory and microbiology Laboratory Tests 12/24/24 02:30 Test 12/24/24 02:30 Range/Units Serum Glucose 94 74-106 mg/dL Problem List Come Metabolic encephalopathy Hypoxic encephalopathy Toxic encephalopathy ? Status epileptics New onset seizure, status epileptics Likely secondary to substance abuse Rule out epileptic seizure or other acute symptomatic seizure The activity witnessed on 12/23/2024 was not typical to seizure, likely myoclonus Substance abuse ? Depression Respiratory failure Assessment/Plan Monitoring Supportive treatment Telemetry Follow-up lab Follow up EEG, report pending ICU care Stabilize vitals/pressor drip Respiratory support/vent management Ativan for seizure breakthrough Need history from him directly Keppra 1500 mg IV b.i.d. for the time being, he may not need preventive seizure treatment Consider tele psych consultation Re: The previous substance abuse later More recommendation per clinical course This medical document was created using an electronic medical record system with [employer] system. Although this document has been carefully reviewed, there may still be some phonetic and typographical errors. These areas are purely typographical due to imperfections of the software programs, and do not reflect any compromise in the patient's medical care. Prognosis guarded Dietary Evaluation Review Comments: 1) Continue TPN to meet at least 75% estimated needs 2) TF Vital High Protein @ 60ml/hr(goal) with current rate of propofol. TF at goal volume together with propofol provides 2471 kcal (100% eenrgy needs) & 126 gm protein (100% protein needs) 3) Monitor TPN tolerance, lab values, I/O, wt trend Expected Outcomes/Goals: To meet >75% estimated needs Fu 2-3 days Plan discussed with: Other BONNY PEREZ MD Dec 24, 2024 20:35
--- NOTE | 2024-12-24 20:49 | DVHEEG2 ---
Neurology EEG Procedural Note Procedural Note EXAM DATE: 12/23/2024 REFERRING DOCTOR: Dr. Perez TECHNIQUE: Eighteen channels of EEG, 2 channels of EOG, and 1 channel of EKG were recorded using the International 10/20 system. CLINICAL DATA: The patient was referred for an EEG evaluation for the evidence of seizure disorder. MEDICATIONS: See chart BACKGROUND ACTIVITY: The record shows diffuse semirhythmic low amplitude waveform in sitter and alpha range diffuse over both hemispheres, intermixed with this was small amount of low to medium voltage delta activity over both hemispheres ACTIVATION: Hyperventilation: Not done Photic Stimulation: Not done Sleep: Nonresponsiveness IMPRESSION: This is a moderately abnormal EEG, this EEG is seen in moderate cerebral dysfunction due to metabolic/hypoxic encephalopathy or medication eff ect, please correlate clinically The EKG channel showed an irregular heart rate of 84 per minute[place] [address] BONNY PEREZ MD Dec 24, 2024 20:49
[2024-12-24] MEDS: SODIUM CHLOR 0.9% PF (SALINE LOCK) 10ML VIAL/SYR IV SCH (22:08)
[2024-12-24] MEDS: PROPOFOL 100 ML IV SCH (23:00)
[2024-12-25] VITALS (107 sets, daily range): BP systolic 105–158; BP diastolic 52–93; PULSE 72–114; RESP 14–36; TEMP 97.5–100.2; O2SAT 84–100
[2024-12-25 03:46] LABS: Hematocrit 28.7 % (41.0-53.0); Hemoglobin 9.8 g/dL (13.5-17.5); Mean Corpuscular Hemoglobin 30.7 pg (28.0-32.0); Mean Corpuscular Volume 90.1 fL (80.0-100.0); Nucleated Red Blood Cells % 0.1 %
[2024-12-25 04:02] LABS: Alanine Aminotransferase 38 U/L (7-40); Albumin 3.6 g/dL (3.2-4.8); Anion Gap 9 (5-15); BUN/Creatinine Ratio 25.0 (10.0-20.0); Bilirubin, Total 0.4 mg/dL (0.2-1.0); Blood Urea Nitrogen 11 mg/dL (9-23); Calcium 9.7 mg/dL (8.7-10.4); Carbon Dioxide 31 mmol/L (20-31); Chloride 102 mmol/L (98-107); Glucose 83 mg/dL (74-106); Sodium 142 mmol/L (136-145); Total Protein 6.3 g/dL (5.7-8.2)
[2024-12-25 04:06] LABS: Alkaline Phosphatase 130 U/L (46-116); Potassium 3.3 mmol/L (3.5-5.1)
--- NOTE | 2024-12-25 04:48 | DVH ---
CHEST RADIOGRAPH Indication: PICC LINE PLACEMENT Technique: Single frontal view of the chest was obtained COMPARISON: XY CHEST PORTABLE on DOS: 12/24/24, XY CHEST PORTABLE on DOS: 12/23/24, XY CHEST PORTABLE o n DOS: 12/22/24, XY CHEST PORTABLE on DOS: 12/21/24, XY CHEST PORTABLE on DOS: 12/20/24 FINDINGS: Lines and Tubes: New right peripherally inserted central catheter terminates in the expected location of the cavoatrial junction. Remaining lines and tubes are unchanged. Lungs: Stable appearing multifocal bilateral pulmonary airspace disease and right basilar infiltrate. Small bilateral pleural effusions can not be excluded. No pneumothorax. Cardiomediastinal contours: Cardiomegaly. Bones: Unremarkable IMPRESSION: 1. New right PICC. Remaining lines and tubes unchanged. 2. Cardiomegaly and stable appearing multifocal bilateral pulmonary airspace disease, right basilar i nfiltrate and probable small bilateral pleural effusions.
--- NOTE | 2024-12-25 04:58 | DVH ---
CHEST RADIOGRAPH Indication: pna Technique: Single frontal view of the chest was obtained COMPARISON: XY CHEST PORTABLE on DOS: 12/24/24, XY CHEST PORTABLE on DOS: 12/23/24, XY CHEST PORTABLE o n DOS: 12/22/24, XY CHEST PORTABLE on DOS: 12/21/24, XY CHEST PORTABLE on DOS: 12/20/24 FINDINGS: Lines and Tubes: Unchanged. Lungs: Multifocal bilateral pulmonary airspace disease and right basilar infiltrate and atelectasis. Probable small bilateral pleural effusions. No pneumothorax. Cardiomediastinal contours: Cardiomegaly. Bones: Unremarkable IMPRESSION: 1. Multifocal bilateral pulmonary airspace disease and right basilar infiltrate and atelectasis. 2. Probable small bilateral pleural effusions. 3. Cardiomegaly.
[2024-12-25 09:23] LABS: Base Excess 3.7 mmol/L (-2.0-3.0)
--- NOTE | 2024-12-25 09:59 | DVHPN2 ---
Subjective Review of Systems Patient is a 24-year-old male with past medical history of hypertension, chronic pain, substance abuse disorder, who was brought in due to new onset seizures. Patient is sedated and mechanically ventilated, history was obtained from patient's mother Ms. Sabillon via telephone. According to the patient's mother, patient has been abusing laughing gas heavily for some time, patient went to by laughing gas on Friday12/15/2024 and used it with his friend where according to the friend patient consumed most of the canister. Patient's mom took him to the rehab on 12/16/2024 where he had a seizure and was taken to the hospital and subsequently discharged back to the rehab facility. On patient again started having seizures which is when he was taken to the hospital again and was subsequently intubated. Patient reported saying he is prescribed Depakote but he has been noncompliant, serum valproic levels were below therapeutic range at 22.1 Past surgical history: Denies Smoking: Uses tobacco vaporizer pen heavily daily Alcohol: Remote history of heavy alcohol use Drugs: Mother is unsure, however, notes he may have history of cocaine abuse and MDMA abuse Previously patient was living in a rented home with a roommate, for the last 1 week was living with mother. Review of systems could not be completed due to patient being sedated and mechanically ventilated. 12/18- initially patient is stable on Keppra 500 b.i.d. but on 12/18 a.m. and into p.m. patient has multiple rapid response consecutively for breakthrough seizures. First rapid response headed by Dr. Grigsby where multiple rounds of Ativan and Keppra load 1 g was given.. Thereafter patient has multiple other episodes between page patient is able to come back to baseline following commands. Finally patient has another rapid response for seizure breakthrough had a proximally 340 p.m. where [facility] neurology is consulted to have expert advice to control seizures. Plan is made to complete Keppra load to maximum. Second-line plan is for valproate. However on a 3rd rapid response at approximately 5 p.m. patient goes on to seizure without returning to baseline for most 45 minutes. Although vitals were stable this is classified now status epilepticus and per guidance from tele neuro intubation needed with propofol. Patient is intubated approximately 530 p.m. there is moderate difficulty due to patient's morbid obesity. Procedure note for details, appreciate RT. Once intubation medications wearing off patient is very difficult to control seizures. Advancing dosing of propofol and Versed are required to maintain RASS of-3 to -4. Levophed is required given propofol causing hypotension. Right IJ cvc inserted also with difficulty due to short and obese neck, appreciate resident physicians. OG and urinary Gregg placement w some difficulty, appreciate nursing. Placement of OG, right IJ CBC, ETT confirmed by chest x- ray. Patient care level advanced to ICU. We will maintain patient at high levels of sedation until neurology evaluation in house. 12/19-patient remains on multiple sedatives control seizures. Now in ICU room 103.. Patient is getting Versed 15, propofol 40, fentanyl 250, Levophed to. Maintaining RASS goal negative for. Patient is ventilated a.c. 20/550/45%/5.0. Vitals mostly stable. Heart rate is on the bradycardia side in 50s. Blood pressure stable with Levophed to maps low 70s. We will continue RASS-4 until neurology review tomorrow in house. Patient has been NPO for few days because of seizures, no bowel sounds today. Out of caution we will do TPN for today deferring enteral feeds until patient is on lower sedation. 12/21/24: Patient seen and examined at bedside. Noted to have some fevers and mild increase in leukocytosis, started on IV Zosyn. Mom and sister at bedside, details of illness explained, all questions answered and concerns addressed. 12/22/24: Patient seen and examined, plan to cpap trial tomorrow. 12/23/24: Overnight when Versed was decreased, patient was noted to have 3 seizures and then another seizure in the a.m., resumed Versed at 14 micrograms/hour. CPAP trial could not be completed. Added vancomycin. 12/24/2024: No further seizures. When down on fentanyl to 275, Versed 213, off of propofol right now. Patient is somewhat responsive and we will periodically move extremities. Chest x-ray showed slight improvement in bilateral effusions and stable airspace disease. Discontinued vancomycin. Creatinine kinase decreased to 1263. 12/25/24 -no significant changes. We will repeat a CK level. PICC line dislodged he will be replaced over guidewire. Electrolyte replacements.. We will maintain in deep sedation until week day for re-evaluation by Neurology for recurrent seizures. Vital signs are stable. Patient currently on fentanyl, Versed 8, propofol 30, fentanyl 200.. Patient is getting feeds Vital HP. Urine output dark brown. Ventilated a.c. 20/550/45%/5.0.. Patient is still having fevers and has required increasing amounts of oxygen saturation to maintain saturates. We will repeat blood cultures and sputum cultures, appreciate respiratory and obtaining that. Reviewed: H&P Changes from previous H/P or p: No Changes General: Per HPI Eyes: No Pain, No Vision change, No Conjunctivae inflammation, No Eyelid inflammation, No Other, No Redness ENT: No Ear pain, No Ear discharge, No Nose pain, No Nose discharge, No Nose congestion, No Mouth pain, No Mouth swelling, No Throat pain, No Throat swelling, No Other Cardiovascular: No Chest Pain, No Palpitations, No Orthopnea, No Paroxysmal Noc. Dyspnea, No Edema, No Lt Headedness, No Other Respiratory: No Cough, No Dry, No Shortness of breath, No SOB with excertion, No Wheezing, No Hemoptysis, No Pleuritic Pain, No Sputum, No Other Gastrointestinal: No Nausea, No Vomiting, No Abdominal Pain, No Diarrhea, No Constipation, No Melena, No Hematochezia, No Other Genitourinary: No Dysuria, No Frequency, No Incontinence, No Hematuria, No Retention, No Other Musculoskeletal: No other, No neck pain, No shoulder pain, No arm pain, No back pain, No hand pain, No leg pain, No foot pain Skin: No Rash, No Lesions, No Jaundice, No Bruising, No Other Objective Vitals Vital Signs Date Time Temp Pulse Resp B/P (MAP) Pulse Ox O2 Delivery O2 Flow Rate FiO2 12/25/24 09:42 78 20 112/58 (76) 93 45 12/25/24 07:30 97.7 207.9 12/25/24 06:00 Mechanical Ventilator+ 30 Intake/Output Intake and Output 12/25/24 07:00 Intake Total 1788.2 ml Output Total 1100 ml Balance 688.2 ml IV Total 1513.2 ml Tube Feeding 275 ml Output Urine Total 1100 ml Exam General Appearance: Sedated and mechanically ventilated obese adult. Constricted pupils. Pulmonary/Respiratory: Coarse bilateral breath sounds Cardiovascular/Chest: Tachycardia Peripheral Pulses: 2+ Pedal (R). 2+ Pedal (L) Abdominal Exam: Normal bowel sounds. Soft. normal abdomen, no visible veins, Nontender. No hepatospenomegaly. No masses Lower extremities: Negative lower extremity edema Skin Exam: Normal inspection. Normal color. Dry. Cool peripheral extremities Medications Current Medications Medications Dose Ordered Sig/Rick Route Start Time Stop Time Status Last Admin Dose Admin Levetiracetam 100 ml @ 400 mls/hr BID IV 12/18/24 22:00 12/24/24 22:07 400 MLS/HR Lorazepam 1 mg Q5MINP PRN IV 12/18/24 11:00 12/23/24 08:43 1 MG Midazolam HCl 50 ml @ 1 mls/hr Q24H IV 12/18/24 21:15 12/25/24 05:01 12 MLS/HR Fentanyl Citrate 250 ml @ 2.5 mls/hr Q24H IV 12/18/24 23:15 12/25/24 00:51 20 MLS/HR Diagnostic Test (Pha) 1 strip Q6HR 12/19/24 12:00 12/25/24 05:03 1 STRIP Insulin Human Regular FOLLOW SLIDING SCALE Q6HR SC 12/19/24 12:00 Dextrose 50 ml UD IV 12/19/24 10:00 12/22/24 23:25 50 ML Albuterol 2.5 mg Q6HR NEB 12/19/24 18:00 12/25/24 06:19 2.5 MG Ipratropium Bricelyn 0.5 mg Q6HR NEB 12/19/24 18:00 12/25/24 06:19 0.5 MG Pantoprazole Sodium 40 mg DAILY IV 12/21/24 10:00 12/24/24 09:22 40 MG Enoxaparin Sodium 40 mg DAILY SC 12/21/24 10:00 12/24/24 09:22 40 MG Piperacillin Sod/ Tazobactam Sod 100 ml @ 25 mls/hr Q6HR IV 12/21/24 12:00 12/25/24 06:00 25 MLS/HR Polyethylene Glycol 17 gm DAILY PO 12/22/24 10:00 12/24/24 09:22 17 GM Docusate Sodium 100 mg BID GT 12/22/24 10:00 12/24/24 22:08 100 MG Acetaminophen 325 mg Q4HP PRN PO 12/22/24 08:15 12/24/24 23:23 325 MG Enteral Nutritional Formula 1,000 ml 60ML/HR GT 12/22/24 11:15 12/23/24 23:03 1,000 ML Thiamine HCl 100 mg DAILY IV 12/24/24 10:00 12/24/24 09:22 100 MG Folic Acid 1 mg/ Dextrose 50.2 ml @ 200.8 mls/ hr DAILY INJ 12/24/24 10:00 12/24/24 09:22 200.8 MLS/HR Propofol 100 ml @ 4.311 mls/ hr [id number] IV 12/24/24 04:00 12/25/24 08:42 30.177 MLS/HR Sodium Chloride 10 ml QSHIFT@10,22 IV 12/24/24 22:00 12/24/24 22:08 10 ML Laboratory Results Laboratory Tests 12/25/24 03:31 Chemistry Test 12/25/24 03:31 Albumin 3.6 g/dL (3.2-4.8) Calcium Level 9.7 mg/dL (8.7-10.4) Magnesium Level 1.8 mg/dL (1.6-2.6) Total Protein 6.3 g/dL (5.7-8.2) Coagulation Test 12/24/24 10:05 Prothrombin Time 10.9 sec (9.3-11.8) Prothrombin Time INR 1.03 (0.9-1.15) Activated Partial Thromboplast Time 29.9 SEC (24.5-34.5) LFT Test 12/25/24 03:31 Alanine Aminotransferase (ALT) 38 U/L (7-40) Alkaline Phosphatase 130 U/L (46-116) H Aspartate Amino Transferase (AST) 39 U/L (13-40) Total Bilirubin 0.4 mg/dL (0.2-1.0) Urinalysis Test 12/17/24 23:14 Urine Color Light-yellow (Yellow) Urine Clarity Clear (Clear) Urine pH 6.5 (5.0-9.0) Urine Specific Shirley 1.024 (1.001-1.035) Urine Protein Negative (Negative) Urine Ketones Trace (Negative) Urine Blood Negative /uL (Negative) Urine Nitrite Negative (Negative) Urine Bilirubin Negative (Negative) Urine Urobilinogen Normal mg/dL (Negative) Urine Leukocyte Esterase Negative /uL (Negative) Urine RBC 1 /hpf (0 - 3) Urine Microscopic WBC < 1 /HPF (0-3) Urine Squamous Epithelial Cells Few /hpf (<5) Urine Bacteria None seen /hpf (None Seen) Urine Yeast (Budding) Occasional /hpf (None Urine Glucose Normal mg/dL (Normal) Blood Gas Results Test 12/25/24 09:15 Arterial Blood pH 7.426 (7.350-7.450) FiO2 % 50.0 Microbiology Microbiology Date/Time Source Procedure Growth Status 12/21/24 11:10 Nose MRSA Screen - Final Complete 12/20/24 17:00 Voided Urine Urine Culture - Final Complete 12/20/24 10:38 Blood Blood Culture - Preliminary NO GROWTH AFTER 72 HOURS OF INCUBATION. Resulted 12/18/24 20:40 Sputum Gram Stain - Final Complete 12/18/24 20:40 Sputum Respiratory Culture - Final Complete Labs and/or images reviewed: Labs reviewed by me, Image(s) reviewed by me Assessment/Plan Assessment/Plan Neurology # acute likely toxic versus metabolic encephalopathy # new onset? Breakthrough grand mal seizures # medication nonadherence # possible alcohol withdrawal, unable to calculate CIWA # Sedated - Versed 13 - fentanyl to 275 - serum valproic acid levels below normal 22.1 - IV levetiracetam 1500 mg b.i.d. - IV lorazepam as needed for seizures - head CT: No evidence of acute intracranial abnormality. If symptoms persist, consider MRI for further evaluation. - neurology on board - brain MRI: No evidence of acute infarction, intracranial hemorrhage, mass effect or hydrocephalus. No effects of mesial temporal sclerosis. Pansinusitis. Prominent bilateral cervical lymph nodes. - last seizure 12/19/2024 around 6:00 p.m. - brain EEG largely unremarkable - IV banana bag x2, IV thiamine, IV folic acid Cardiovascular # essential hypertension # sedation related hypotension on mechanical ventilation - stopped IV NS at 60 cc/hour Respiratory # Acute hypoxic respiratory failure secondary to intractable seizures # probable aspiration pneumonia # Ventilator - intubated 12/18/2024 - on [facility] vent : VCAC Mode RR 20 TV 550ml, PEEP Of 5 and FiO2 of 60% - ipratropium and albuterol med nebs - CXR: Hypoinflated lungs with bibasilar atelectasis - started on IV Zosyn 12/21/2024 - started IV vancomycin per pharmacy on 12/23/2024, discontinued vancomycin on 12/24/2024 GI # transaminitis # Peptic ulcer prophylaxis # vitamin B12 deficiency -Pantoprazole 40 mg IV daily - negative hepatitis-B and hepatitis-C - repleted with 1000 mcg B12 # Gregg catheter placed on 12/18/2024 Nephrology # hypernatremia, now improved # hypokalemia, now improved - serum creatinine 2159 on 12/23/2024, 1263 on 12/24/2024 - monitor Infectious disease # aspiration pneumonia # sepsis due to above - pancultures - IV Zosyn - discontinued IV vancomycin per pharmacy on 12/24/2024 - Tylenol as needed for fever - monitor Hem/onc # microcytic anemia, mild - monitor Psychiatry # substance use disorder - we will consider Psychiatry consult once patient is extubated DVT prophylaxis - Lovenox 40 mg subcutaneous daily Nutrition - tube feedings started on 12/21/2024 Lines Right IJ placed on 12/18/2024 Left arm 20 gauge placed on 12/17/2024 Right arm 20 gauge placed on 12/18/2024 Plan discussed with: Patient Date of Service: Dec 25, 2024 Billing Provider: RONY YE MD Common Visit Codes: [id number] CARE 30-74 MIN RONY YE MD Dec 25, 2024 09:59
[2024-12-25 10:39] LABS: Chloride 103 mmol/L (98-107); Potassium 3.8 mmol/L (3.5-5.1); Sodium 142 mmol/L (136-145)
[2024-12-25 10:40] LABS: Anion Gap 8 (5-15); Carbon Dioxide 31 mmol/L (20-31)
[2024-12-25 10:41] LABS: Calcium 9.5 mg/dL (8.7-10.4)
[2024-12-25 10:45] LABS: Glucose 83 mg/dL (74-106)
[2024-12-25 10:46] LABS: BUN/Creatinine Ratio 28.3 (10.0-20.0); Blood Urea Nitrogen 13 mg/dL (9-23)
[2024-12-25 10:53] LABS: Creatine Kinase IFCC 640 U/L (46-171)
[2024-12-25] MEDS: MAGNESIUM SULFATE 1GM/100ML 100 ML IV ONE (11:32)
[2024-12-25] MEDS: POTASSIUM CHL 20MEQ/100ML 100 ML IV ONE (11:38)
--- NOTE | 2024-12-25 12:30 | DVHPN2 ---
Progress Note - Dictate Date Seen: Dec 25, 2024 Medical Necessity Reason Pt with a Central, PICC or Fol: Yes The following are medically ne: Reed Catheter Reason for reed catheter: Strict I&O vital signs Vital Sign Date Time Temp Pulse Resp B/P (MAP) Pulse Ox O2 Delivery O2 Flow Rate FiO2 12/25/24 12:09 75 20 120/62 (81) 93 45 12/25/24 07:30 97.7 207.9 12/25/24 06:00 Mechanical Ventilator+ 30 Total Intake and Output 12/24/24 12/24/24 12/25/24 15:00 23:00 07:00 Intake Total 760.2 ml 337.0 ml 691 ml Output Total 1100 ml Balance 760.2 ml 337.0 ml -409 ml medications Current Medications Medications Dose Ordered Sig/Rick Route Start Time Stop Time Status Last Admin Dose Admin Levetiracetam 100 ml @ 400 mls/hr BID IV 12/18/24 22:00 12/25/24 12:06 400 MLS/HR Lorazepam 1 mg Q5MINP PRN IV 12/18/24 11:00 12/23/24 08:43 1 MG Midazolam HCl 50 ml @ 1 mls/hr Q24H IV 12/18/24 21:15 12/25/24 05:01 12 MLS/HR Fentanyl Citrate 250 ml @ 2.5 mls/hr Q24H IV 12/18/24 23:15 12/25/24 00:51 20 MLS/HR Diagnostic Test (Pha) 1 strip Q6HR 12/19/24 12:00 12/25/24 05:03 1 STRIP Insulin Human Regular FOLLOW SLIDING SCALE Q6HR SC 12/19/24 12:00 Dextrose 50 ml UD IV 12/19/24 10:00 12/22/24 23:25 50 ML Albuterol 2.5 mg Q6HR NEB 12/19/24 18:00 12/25/24 12:09 2.5 MG Ipratropium [place] 0.5 mg Q6HR NEB 12/19/24 18:00 12/25/24 12:09 0.5 MG Pantoprazole Sodium 40 mg DAILY IV 12/21/24 10:00 12/25/24 11:38 40 MG Enoxaparin Sodium 40 mg DAILY SC 12/21/24 10:00 12/25/24 10:00 40 MG Piperacillin Sod/ Tazobactam Sod 100 ml @ 25 mls/hr Q6HR IV 12/21/24 12:00 12/25/24 06:00 25 MLS/HR Polyethylene Glycol 17 gm DAILY PO 12/22/24 10:00 12/25/24 11:38 17 GM Docusate Sodium 100 mg BID GT 12/22/24 10:00 12/25/24 11:29 100 MG Acetaminophen 325 mg Q4HP PRN PO 12/22/24 08:15 12/24/24 23:23 325 MG Enteral Nutritional Formula 1,000 ml 60ML/HR GT 12/22/24 11:15 12/23/24 23:03 1,000 ML Thiamine HCl 100 mg DAILY IV 12/24/24 10:00 12/25/24 11:38 100 MG Folic Acid 1 mg/ Dextrose 50.2 ml @ 200.8 mls/ hr DAILY INJ 12/24/24 10:00 12/25/24 10:00 200.8 MLS/HR Propofol 100 ml @ 4.311 mls/ hr [id number] IV 12/24/24 04:00 12/25/24 11:29 25.866 MLS/HR Sodium Chloride 10 ml QSHIFT@10,22 IV 12/24/24 22:00 12/25/24 11:38 10 ML laboratory and microbiology Laboratory Tests 12/25/24 10:05 12/25/24 03:31 Test 12/25/24 10:05 Range/Units Serum Glucose 83 74-106 mg/dL Assessment/Plan [place] rounds Impression Acute hypoxemic respiratory failure ? Aspiration pneumonia Substance abuse Seizures Patient seen and examined in ICU Events On mechanical ventilation S/p intubation PEEP 5, FiO2 50% Labs and imaging reviewed MRI of the brain negative Cultures negative ABG reviewed Management Vent support Titrate to maintain sats 90% or above Sedation holiday in AM If patient follows commands, proceed to weaning trial Pressure support 12/18, extubate when ready Okay to use Precedex as needed Antibiotics for ? aspiration pneumonia Okay to de-escalate Bronchodilators Monitor renal function Monitor electrolytes Supplement as needed Pressors as needed for hemodynamic support To maintain a mean arterial pressure of 65 mmHg Antiepileptics as ordered DVT prophylaxis Critical care time 35 minutes Dietary Evaluation Review Comments: 1) Continue TPN to meet at least 75% estimated needs 2) TF Vital High Protein @ 60ml/hr(goal) with current rate of propofol. TF at goal volume together with propofol provides 2471 kcal (100% eenrgy needs) & 126 gm protein (100% protein needs) 3) Monitor TPN tolerance, lab values, I/O, wt trend Expected Outcomes/Goals: To meet >75% estimated needs Fu 2-3 days Plan discussed with: Other (Rn) LI DUFFY MD Dec 25, 2024 12:30
[2024-12-25] MEDS ORDERED: TPN PER PHARMACY 0 ML IV SCH (17:00)
--- NOTE | 2024-12-25 17:13 | DVH ---
CHEST RADIOGRAPH Indication: PICC line placement verification Technique: Single frontal view of the chest was obtained Comparison: XY CHEST PORTABLE on DOS: 12/25/24, XY CHEST PORTABLE on DOS: 12/25/24, XY CHEST PORTABLE o n DOS: 12/24/24 FINDINGS: Lines and Tubes: Endotracheal tube is 1.7 cm above the rogers. PICC line from right arm in place unch anged with the tip in the superior vena cava. Lungs: Poor inspiratory effort with linear atelectasis in the mid right chest and increased density i n the left lower lung field in the retrocardiac area may represent infiltrate or atelectasis. Pleura: No effusion. No pneumothorax. Cardiomediastinal contours: Unremarkable Bones: No acute osseous abnormality. IMPRESSION: 1. PICC line from right arm in place unchanged with tip in the superior vena cava. 2. Endotracheal tube in place with the tip 1.7 cm above the rogers. 3. Poor inspiratory effort.
--- NOTE | 2024-12-25 20:21 | DVHPN2 ---
Progress Note - Dictate Date Seen: Dec 25, 2024 Medical Necessity Reason Pt with a Central, PICC or Fol: Yes The following are medically ne: Reed Catheter Reason for reed catheter: Strict I&O Subjective Mr. Perry is a 24 years old right-handed gentleman with a history of hypertension, pain syndrome, substance abuse, he was admitted to the [facility] on 12/17/2024 for new onset seizure activity. I have seen and examined the patient, discussed with his nurses and his mother. He is sedated, intubated, he responsive to painful stimuli, he blinks and moves the legs, pupils are small and responsive to lights He keeps having hypoxia With less sedation, he moves more Bronchoscopy me in the motor [id number] mcg/hour, Versed 6 mghour, propofol 20 mcg/minute, FiO2: 50% Urinalysis, 12/17/2024: Unremarkable Urine drug screening, 12/17/2024: Benzo Valproic acid, 12/17/2024: 22.1 Plasma alcohol, 12/17/2024: <3 ABG, 12/18/2024: Respiratory acidosis, 12/20/2024: Acidosis, 12/22/2024: Hypoxia, 12/24/2024: Hypoxia, carbon dioxide retention, 12/25/2024: Hypoxia, carbon dioxide retention WBC/HB/PLT/MCV, 12/20/2024: 8/12.4/233/90.4 CMP 12/18/2024: Unremarkable TBI/AST/ALT/AP, 12/20/2024: 0.7/44/45/143 EEG, 12/19/2019 10/26/24 13:15: Normal EEG, 12/23/2024: Moderately abnormal EEG Chest x-ray 12/18/2024: Endotracheal tube 0.7 cm above the rogers. Nasogastric tube in the proximal stomach CT head, 12/17/2024: No evidence of acute intracranial abnormality. If symptoms persist, consider MRI for further evaluation MR head, 12/21/2024: No evidence of acute infarction, intracranial hemorrhage, mass effect or hydrocephalus. No evidence of mesial temporal sclerosis. Pansinusitis. Prominent bilateral cervical lymph nodes. This can be further evaluated with ultrasound (? DWI images 30, 14) vital signs Vital Sign Date Time Temp Pulse Resp B/P (MAP) Pulse Ox O2 Delivery O2 Flow Rate FiO2 12/25/24 19:30 99.9 98 20 149/79 (102) 93 211.8 12/25/24 18:44 50 12/25/24 18:00 Mechanical Ventilator+ 12/25/24 06:00 30 Total Intake and Output 12/24/24 12/24/24 12/25/24 15:00 23:00 07:00 Intake Total 760.2 ml 337.0 ml 740.555 ml Output Total 1100 ml Balance 760.2 ml 337.0 ml -359.445 ml medications Current Medications Medications Dose Ordered Sig/Rick Route Start Time Stop Time Status Last Admin Dose Admin Levetiracetam 100 ml @ 400 mls/hr BID IV 12/18/24 22:00 12/25/24 12:06 400 MLS/HR Lorazepam 1 mg Q5MINP PRN IV 12/18/24 11:00 12/23/24 08:43 1 MG Midazolam HCl 50 ml @ 1 mls/hr Q24H IV 12/18/24 21:15 12/25/24 17:52 1 MLS/HR Fentanyl Citrate 250 ml @ 2.5 mls/hr Q24H IV 12/18/24 23:15 12/25/24 13:19 20 MLS/HR Diagnostic Test (Pha) 1 strip Q6HR 12/19/24 12:00 12/25/24 18:00 1 STRIP Insulin Human Regular FOLLOW SLIDING SCALE Q6HR SC 12/19/24 12:00 Dextrose 50 ml UD IV 12/19/24 10:00 12/22/24 23:25 50 ML Albuterol 2.5 mg Q6HR NEB 12/19/24 18:00 12/25/24 18:44 2.5 MG Ipratropium [place] 0.5 mg Q6HR NEB 12/19/24 18:00 12/25/24 18:45 0.5 MG Pantoprazole Sodium 40 mg DAILY IV 12/21/24 10:00 12/25/24 11:38 40 MG Enoxaparin Sodium 40 mg DAILY SC 12/21/24 10:00 12/25/24 10:00 40 MG Piperacillin Sod/ Tazobactam Sod 100 ml @ 25 mls/hr Q6HR IV 12/21/24 12:00 12/25/24 18:00 25 MLS/HR Polyethylene Glycol 17 gm DAILY PO 12/22/24 10:00 12/25/24 11:38 17 GM Docusate Sodium 100 mg BID GT 12/22/24 10:00 12/25/24 11:29 100 MG Acetaminophen 325 mg Q4HP PRN PO 12/22/24 08:15 12/24/24 23:23 325 MG Thiamine HCl 100 mg DAILY IV 12/24/24 10:00 12/25/24 11:38 100 MG Folic Acid 1 mg/ Dextrose 50.2 ml @ 200.8 mls/ hr DAILY INJ 12/24/24 10:00 12/25/24 10:00 200.8 MLS/HR Propofol 100 ml @ 4.311 mls/ hr [id number] IV 12/24/24 04:00 12/25/24 16:04 25.866 MLS/HR Sodium Chloride 10 ml QSHIFT@10,22 IV 12/24/24 22:00 12/25/24 11:38 10 ML Amino Acids 0 ml @ 0 mls/hr PER PHARMACY IV 12/25/24 17:00 Amino Acids/ Electrolytes/ Dextrose 1,000 ml @ 41 mls/hr DAILY@2200 IV 12/25/24 22:00 12/26/24 21:59 objective The patient is well-nourished and well-developed with no distress. The patient is intubated MENTAL STATUS: Subjective CRANIAL NERVES: Pupils are equal, round and nonreactive, small. There are corneal reflexes and doll's eyes phenomenon. No signs of facial weakness. There are gagging or coughing reflexes SENSATION: Responses to pain stimuli. MOTOR: Normal tone in the upper and lower extremity. Normal muscle bulk. No fasciculations. He moves the legs REFLEXES: Deep tendon reflexes are symmetrical. No pathological reflexes. CEREBELLAR/COORDINATION: Deferred GAIT/STATION: deferred laboratory and microbiology Laboratory Tests 12/25/24 10:05 12/25/24 03:31 Test 12/25/24 10:05 Range/Units Serum Glucose 83 74-106 mg/dL Problem List Come Metabolic encephalopathy Hypoxic encephalopathy Toxic encephalopathy ? Status epileptics New onset seizure, status epileptics Likely secondary to substance abuse Rule out epileptic seizure or other acute symptomatic seizure The activity witnessed on 12/23/2024 was not typical to seizure, likely myoclonus Substance abuse ? Depression Respiratory failure/hypoxia Assessment/Plan Monitoring Supportive treatment Telemetry Follow-up lab Follow up EEG, report pending ICU care Stabilize vitals/pressor drip Respiratory support/vent management Ativan for seizure breakthrough Need history from him directly Keppra 1500 mg IV b.i.d. for the time being, he may not need preventive seizure treatment Consider tele psych consultation Re: The previous substance abuse later More recommendation per clinical course This medical document was created using an electronic medical record system with [employer] dictation system. Although this document has been carefully reviewed, there may still be some phonetic and typographical errors. These areas are purely typographical due to imperfections of the software programs, and do not reflect any compromise in the patient's medical care. Prognosis guarded Dietary Evaluation Review Comments: 1) Continue TPN to meet at least 75% estimated needs 2) TF Vital High Protein @ 60ml/hr(goal) with current rate of propofol. TF at goal volume together with propofol provides 2471 kcal (100% eenrgy needs) & 126 gm protein (100% protein needs) 3) Monitor TPN tolerance, lab values, I/O, wt trend Expected Outcomes/Goals: To meet >75% estimated needs Fu 2-3 days Plan discussed with: Other BONNY PEREZ MD Dec 25, 2024 20:21
[2024-12-25] MEDS: AMINO ACID INFUSION IN D10W 1,000 ML IV SCH (21:25)
[2024-12-26] VITALS (111 sets, daily range): BP systolic 94–140; BP diastolic 41–87; PULSE 69–95; RESP 15–39; TEMP 97.7–99.1; O2SAT 4–95
[2024-12-26 04:21] LABS: Alanine Aminotransferase 39 U/L (7-40); Albumin 3.8 g/dL (3.2-4.8); Anion Gap 9 (5-15); BUN/Creatinine Ratio 20.5 (10.0-20.0); Bilirubin, Total 0.4 mg/dL (0.2-1.0); Calcium 9.8 mg/dL (8.7-10.4); Carbon Dioxide 31 mmol/L (20-31); Chloride 102 mmol/L (98-107); Glucose 97 mg/dL (74-106); Magnesium 1.9 mg/dL (1.6-2.6); Sodium 142 mmol/L (136-145); Total Protein 6.7 g/dL (5.7-8.2)
[2024-12-26 04:25] LABS: Alkaline Phosphatase 133 U/L (46-116); Blood Urea Nitrogen 9 mg/dL (9-23); Potassium 3.4 mmol/L (3.5-5.1)
[2024-12-26 07:40] LABS: Base Excess 4.2 mmol/L (-2.0-3.0)
[2024-12-26 07:46] LABS: Hematocrit 29.3 % (41.0-53.0); Hemoglobin 9.9 g/dL (13.5-17.5); Mean Corpuscular Hemoglobin 30.4 pg (28.0-32.0); Mean Corpuscular Volume 90.1 fL (80.0-100.0)
[2024-12-26 08:46] LABS: RBC Morphology Normal; Total Cells Counted 100.0 (100)
--- NOTE | 2024-12-26 09:25 | DVHPN2 ---
Subjective Review of Systems Patient is a 24-year-old male with past medical history of hypertension, chronic pain, substance abuse disorder, who was brought in due to new onset seizures. Patient is sedated and mechanically ventilated, history was obtained from patient's mother Ms. Sabillon via telephone. According to the patient's mother, patient has been abusing laughing gas heavily for some time, patient went to by laughing gas on Friday12/15/2024 and used it with his friend where according to the friend patient consumed most of the canister. Patient's mom took him to the rehab on 12/16/2024 where he had a seizure and was taken to the hospital and subsequently discharged back to the rehab facility. On patient again started having seizures which is when he was taken to the hospital again and was subsequently intubated. Patient reported saying he is prescribed Depakote but he has been noncompliant, serum valproic levels were below therapeutic range at 22.1 Past surgical history: Denies Smoking: Uses tobacco vaporizer pen heavily daily Alcohol: Remote history of heavy alcohol use Drugs: Mother is unsure, however, notes he may have history of cocaine abuse and MDMA abuse Previously patient was living in a rented home with a roommate, for the last 1 week was living with mother. Review of systems could not be completed due to patient being sedated and mechanically ventilated. 12/18- initially patient is stable on Keppra 500 b.i.d. but on 12/18 a.m. and into p.m. patient has multiple rapid response consecutively for breakthrough seizures. First rapid response headed by Dr. Grigsby where multiple rounds of Ativan and Keppra load 1 g was given.. Thereafter patient has multiple other episodes between page patient is able to come back to baseline following commands. Finally patient has another rapid response for seizure breakthrough had a proximally 340 p.m. where [facility] neurology is consulted to have expert advice to control seizures. Plan is made to complete Keppra load to maximum. Second-line plan is for valproate. However on a 3rd rapid response at approximately 5 p.m. patient goes on to seizure without returning to baseline for most 45 minutes. Although vitals were stable this is classified now status epilepticus and per guidance from tele neuro intubation needed with propofol. Patient is intubated approximately 530 p.m. there is moderate difficulty due to patient's morbid obesity. Procedure note for details, appreciate RT. Once intubation medications wearing off patient is very difficult to control seizures. Advancing dosing of propofol and Versed are required to maintain RASS of-3 to -4. Levophed is required given propofol causing hypotension. Right IJ cvc inserted also with difficulty due to short and obese neck, appreciate resident physicians. OG and urinary Gregg placement w some difficulty, appreciate nursing. Placement of OG, right IJ CBC, ETT confirmed by chest x- ray. Patient care level advanced to ICU. We will maintain patient at high levels of sedation until neurology evaluation in house. 12/19-patient remains on multiple sedatives control seizures. Now in ICU room 103.. Patient is getting Versed 15, propofol 40, fentanyl 250, Levophed to. Maintaining RASS goal negative for. Patient is ventilated a.c. 20/550/45%/5.0. Vitals mostly stable. Heart rate is on the bradycardia side in 50s. Blood pressure stable with Levophed to maps low 70s. We will continue RASS-4 until neurology review tomorrow in house. Patient has been NPO for few days because of seizures, no bowel sounds today. Out of caution we will do TPN for today deferring enteral feeds until patient is on lower sedation. 12/21/24: Patient seen and examined at bedside. Noted to have some fevers and mild increase in leukocytosis, started on IV Zosyn. Mom and sister at bedside, details of illness explained, all questions answered and concerns addressed. 12/22/24: Patient seen and examined, plan to cpap trial tomorrow. 12/23/24: Overnight when Versed was decreased, patient was noted to have 3 seizures and then another seizure in the a.m., resumed Versed at 14 micrograms/hour. CPAP trial could not be completed. Added vancomycin. 12/24/2024: No further seizures. When down on fentanyl to 275, Versed 213, off of propofol right now. Patient is somewhat responsive and we will periodically move extremities. Chest x-ray showed slight improvement in bilateral effusions and stable airspace disease. Discontinued vancomycin. Creatinine kinase decreased to 1263. 12/25/24 -no significant changes. We will repeat a CK level. PICC line dislodged he will be replaced over guidewire. Electrolyte replacements.. We will maintain in deep sedation until week day for re-evaluation by Neurology for recurrent seizures. Vital signs are stable. Patient currently on fentanyl, Versed 8, propofol 30, fentanyl 200.. Patient is getting feeds Vital HP. Urine output dark brown. Ventilated a.c. 20/550/45%/5.0.. Patient is still having fevers and has required increasing amounts of oxygen saturation to maintain saturates. We will repeat blood cultures and sputum cultures, appreciate respiratory and obtaining that. 12/26/2024.-pulmonology plans for bronch today. ABG good. X-ray pending. We will continue sedatives given primary team's directives. Fentanyl 150 Versed 7 propofol 45. Clinimix,. Continuing IV antibiotics. Urine output adequate. Vitals stable no vasopressors map more than 75. On mechanical ventilation. A.c./20/5 50/50%/5.0.. We will continue sedation and sedation vacation trial tomorrow morning when primary returns. Update--after bronch we will try sedation vacation maximum 3-4 hours if he is doing well. Continue sedatives if any seizure activity is noted. We will try another sedation vacation tomorrow morning for primary to evaluate. Reviewed: H&P Changes from previous H/P or p: No Changes General: Per HPI Eyes: No Pain, No Vision change, No Conjunctivae inflammation, No Eyelid inflammation, No Other, No Redness ENT: No Ear pain, No Ear discharge, No Nose pain, No Nose discharge, No Nose congestion, No Mouth pain, No Mouth swelling, No Throat pain, No Throat swelling, No Other Cardiovascular: No Chest Pain, No Palpitations, No Orthopnea, No Paroxysmal Noc. Dyspnea, No Edema, No Lt Headedness, No Other Respiratory: No Cough, No Dry, No Shortness of breath, No SOB with excertion, No Wheezing, No Hemoptysis, No Pleuritic Pain, No Sputum, No Other Gastrointestinal: No Nausea, No Vomiting, No Abdominal Pain, No Diarrhea, No Constipation, No Melena, No Hematochezia, No Other Genitourinary: No Dysuria, No Frequency, No Incontinence, No Hematuria, No Retention, No Other Musculoskeletal: No other, No neck pain, No shoulder pain, No arm pain, No back pain, No hand pain, No leg pain, No foot pain Skin: No Rash, No Lesions, No Jaundice, No Bruising, No Other Objective Vitals Vital Signs Date Time Temp Pulse Resp B/P (MAP) Pulse Ox O2 Delivery O2 Flow Rate FiO2 12/26/24 08:28 114/56 12/26/24 08:04 74 26 94 50 12/26/24 06:45 98.2 208.8 12/26/24 05:47 Mechanical Ventilator+ 12/25/24 06:00 30 Intake/Output Intake and Output 12/26/24 07:00 Intake Total 2687.893 ml Output Total 3000 ml Balance -312.107 ml IV Total 2687.893 ml Output Urine Total 3000 ml Exam General Appearance: Sedated and mechanically ventilated obese adult. Constricted pupils. Pulmonary/Respiratory: Coarse bilateral breath sounds Cardiovascular/Chest: Tachycardia Peripheral Pulses: 2+ Pedal (R). 2+ Pedal (L) Abdominal Exam: Normal bowel sounds. Soft. normal abdomen, no visible veins, Nontender. No hepatospenomegaly. No masses Lower extremities: Negative lower extremity edema Skin Exam: Normal inspection. Normal color. Dry. Cool peripheral extremities Medications Current Medications Medications Dose Ordered Sig/Rick Route Start Time Stop Time Status Last Admin Dose Admin Levetiracetam 100 ml @ 400 mls/hr BID IV 12/18/24 22:00 12/25/24 21:24 400 MLS/HR Lorazepam 1 mg Q5MINP PRN IV 12/18/24 11:00 12/23/24 08:43 1 MG Midazolam HCl 50 ml @ 1 mls/hr Q24H IV 12/18/24 21:15 12/26/24 04:59 7 MLS/HR Fentanyl Citrate 250 ml @ 2.5 mls/hr Q24H IV 12/18/24 23:15 12/26/24 04:59 17.5 MLS/HR Diagnostic Test (Pha) 1 strip Q6HR 12/19/24 12:00 12/26/24 05:13 1 STRIP Insulin Human Regular FOLLOW SLIDING SCALE Q6HR SC 12/19/24 12:00 Dextrose 50 ml UD IV 12/19/24 10:00 12/22/24 23:25 50 ML Albuterol 2.5 mg Q6HR NEB 12/19/24 18:00 12/26/24 06:39 2.5 MG Ipratropium [place] 0.5 mg Q6HR NEB 12/19/24 18:00 12/26/24 06:40 0.5 MG Pantoprazole Sodium 40 mg DAILY IV 12/21/24 10:00 12/25/24 11:38 40 MG Enoxaparin Sodium 40 mg DAILY SC 12/21/24 10:00 12/25/24 10:00 40 MG Piperacillin Sod/ Tazobactam Sod 100 ml @ 25 mls/hr Q6HR IV 12/21/24 12:00 12/26/24 05:10 25 MLS/HR Polyethylene Glycol 17 gm DAILY PO 12/22/24 10:00 12/25/24 11:38 17 GM Docusate Sodium 100 mg BID GT 12/22/24 10:00 12/25/24 21:25 100 MG Acetaminophen 325 mg Q4HP PRN PO 12/22/24 08:15 12/24/24 23:23 325 MG Thiamine HCl 100 mg DAILY IV 12/24/24 10:00 12/25/24 11:38 100 MG Folic Acid 1 mg/ Dextrose 50.2 ml @ 200.8 mls/ hr DAILY INJ 12/24/24 10:00 12/25/24 10:00 200.8 MLS/HR Propofol 100 ml @ 4.311 mls/ hr [id number] IV 12/24/24 04:00 12/26/24 08:28 38.799 MLS/HR Sodium Chloride 10 ml QSHIFT@10,22 IV 12/24/24 22:00 12/25/24 21:25 10 ML Amino Acids 0 ml @ 0 mls/hr PER PHARMACY IV 12/25/24 17:00 Amino Acids/ Electrolytes/ Dextrose 1,000 ml @ 41 mls/hr DAILY@2200 IV 12/25/24 22:00 12/26/24 21:59 12/25/24 21:25 41 MLS/HR Laboratory Results Laboratory Tests 12/26/24 03:33 Chemistry Test 12/25/24 10:05 12/26/24 03:33 Calcium Level 9.5 mg/dL (8.7-10.4) 9.8 mg/dL (8.7-10.4) Albumin 3.8 g/dL (3.2-4.8) Magnesium Level 1.9 mg/dL (1.6-2.6) Phosphorus Level 4.7 mg/dL (2.4-5.1) Total Protein 6.7 g/dL (5.7-8.2) LFT Test 12/26/24 03:33 Alanine Aminotransferase (ALT) 39 U/L (7-40) Alkaline Phosphatase 133 U/L (46-116) H Aspartate Amino Transferase (AST) 34 U/L (13-40) Total Bilirubin 0.4 mg/dL (0.2-1.0) Urinalysis Test 12/17/24 23:14 Urine Color Light-yellow (Yellow) Urine Clarity Clear (Clear) Urine pH 6.5 (5.0-9.0) Urine Specific [place] 1.024 (1.001-1.035) Urine Protein Negative (Negative) Urine Ketones Trace (Negative) Urine Blood Negative /uL (Negative) Urine Nitrite Negative (Negative) Urine Bilirubin Negative (Negative) Urine Urobilinogen Normal mg/dL (Negative) Urine Leukocyte Esterase Negative /uL (Negative) Urine RBC 1 /hpf (0 - 3) Urine Microscopic WBC < 1 /HPF (0-3) Urine Squamous Epithelial Cells Few /hpf (<5) Urine Bacteria None seen /hpf (None Seen) Urine Yeast (Budding) Occasional /hpf (None Urine Glucose Normal mg/dL (Normal) Blood Gas Results Test 12/26/24 07:28 Arterial Blood pH 7.431 (7.350-7.450) FiO2 % 50.0 Microbiology Microbiology Date/Time Source Procedure Growth Status 12/21/24 11:10 Nose MRSA Screen - Final Complete 12/20/24 17:00 Voided Urine Urine Culture - Final Complete 12/20/24 10:38 Blood Blood Culture - Final NO GROWTH AFTER 5 DAYS OF INCUBATION. Complete 12/18/24 20:40 Sputum Gram Stain - Final Complete 12/18/24 20:40 Sputum Respiratory Culture - Final Complete Labs and/or images reviewed: Labs reviewed by me, Image(s) reviewed by me Assessment/Plan Assessment/Plan Neurology # acute likely toxic versus metabolic encephalopathy # new onset? Breakthrough grand mal seizures # medication nonadherence # possible alcohol withdrawal, unable to calculate CIWA # Sedated - Versed 13 - fentanyl to 275 - serum valproic acid levels below normal 22.1 - IV levetiracetam 1500 mg b.i.d. - IV lorazepam as needed for seizures - head CT: No evidence of acute intracranial abnormality. If symptoms persist, consider MRI for further evaluation. - neurology on board - brain MRI: No evidence of acute infarction, intracranial hemorrhage, mass effect or hydrocephalus. No effects of mesial temporal sclerosis. Pansinusitis. Prominent bilateral cervical lymph nodes. - last seizure 12/19/2024 around 6:00 p.m. - brain EEG largely unremarkable - IV banana bag x2, IV thiamine, IV folic acid Cardiovascular # essential hypertension # sedation related hypotension on mechanical ventilation - stopped IV NS at 60 cc/hour Respiratory # Acute hypoxic respiratory failure secondary to intractable seizures # probable aspiration pneumonia # Ventilator - intubated 12/18/2024 - on [facility] vent : VCAC Mode RR 20 TV 550ml, PEEP Of 5 and FiO2 of 60% - ipratropium and albuterol med nebs - CXR: Hypoinflated lungs with bibasilar atelectasis - started on IV Zosyn 12/21/2024 - started IV vancomycin per pharmacy on 12/23/2024, discontinued vancomycin on 12/24/2024 GI # transaminitis # Peptic ulcer prophylaxis # vitamin B12 deficiency -Pantoprazole 40 mg IV daily - negative hepatitis-B and hepatitis-C - repleted with 1000 mcg B12 # Gregg catheter placed on 12/18/2024 Nephrology # hypernatremia, now improved # hypokalemia, now improved - serum creatinine 2159 on 12/23/2024, 1263 on 12/24/2024 - monitor Infectious disease # aspiration pneumonia # sepsis due to above - pancultures - IV Zosyn - discontinued IV vancomycin per pharmacy on 12/24/2024 - Tylenol as needed for fever - monitor Hem/onc # microcytic anemia, mild - monitor Psychiatry # substance use disorder - we will consider Psychiatry consult once patient is extubated DVT prophylaxis - Lovenox 40 mg subcutaneous daily Nutrition - tube feedings started on 12/21/2024 Lines Right IJ placed on 12/18/2024 Left arm 20 gauge placed on 12/17/2024 Right arm 20 gauge placed on 12/18/2024 Plan discussed with: Patient My Orders Orders - RONY YE MD Procedure Category Date Status Time Blood Culture BRENDA 12/25/24 In Process 09:51 Respiratory Culture BRENDA 12/25/24 In Process W/ Gs 12:10 Chest Portable XY 12/25/24 Resulted 16:31 Tpn Per Pharmacy PHA 12/25/24 In Process 17:00 Clinimix Per Pharmacy JADIEL 12/25/24 In Process 22:00 Amino Acid Infusion PHA 12/25/24 In Process In D10w (Clinimix 4. 22:00 Chest Portable XY 12/26/24 Logged 07:32 Potassium Chl Gordon PHA 12/26/24 Transmitted KCL 09:30 Date of Service: Dec 26, 2024 Billing Provider: RONY YE MD Common Visit Codes: 84451-OPYYYSOF CARE 30-74 MIN RONY YE MD Dec 26, 2024 09:25
--- NOTE | 2024-12-26 09:33 | DVH ---
US US Guided Vascular Access, HISTORY: PICC LINE PLACEMENT TECHNICAL DATA: Transverse and longitudinal sonographic images were obtained of the vessel. COMPARISON: None FINDINGS: IMPRESSION: Ultrasound image for PICC line placement.
[2024-12-26] MEDS: POTASSIUM CHL 20MEQ/100ML 100 ML IV ONE (12:20)
--- NOTE | 2024-12-26 13:03 | DVH ---
CHEST RADIOGRAPH Indication: pt intubated Technique: XY CHEST PORTABLE COMPARISON: 12/25/2024 FINDINGS: Endotracheal tube tip projects approximately 3.9 cm above the rogers. Nasogastric tube ti p is not well seen appears to project gastric fundal region. Right PICC line tip projects over the SV C. The cardiac silhouette is enlarged. Low lung volumes. The lungs demonstrate bilateral patchy airspace opacities. The pulmonary vasculature is prominent. Small right pleural effusion. Left costophrenic angle not well characterized. There is no pneumothorax. IMPRESSION: As above
--- NOTE | 2024-12-26 13:30 | DVHPN2 ---
Progress Note - Dictate Date Seen: Dec 26, 2024 Medical Necessity Reason Pt with a Central, PICC or Fol: Yes The following are medically ne: Reed Catheter Reason for reed catheter: Strict I&O vital signs Vital Sign Date Time Temp Pulse Resp B/P (MAP) Pulse Ox O2 Delivery O2 Flow Rate FiO2 12/26/24 11:46 74 20 121/54 (76) 93 75 12/26/24 11:45 98.4 209.1 12/26/24 08:00 Mechanical Ventilator+ 12/25/24 06:00 30 Total Intake and Output 12/25/24 12/25/24 12/26/24 15:00 23:00 07:00 Intake Total 778.439 ml 1047.117 ml 989.136 ml Output Total 1350 ml 1650 ml Balance 778.439 ml -302.883 ml -660.864 ml medications Current Medications Medications Dose Ordered Sig/Rick Route Start Time Stop Time Status Last Admin Dose Admin Levetiracetam 100 ml @ 400 mls/hr BID IV 12/18/24 22:00 12/26/24 12:19 400 MLS/HR Lorazepam 1 mg Q5MINP PRN IV 12/18/24 11:00 12/23/24 08:43 1 MG Midazolam HCl 50 ml @ 1 mls/hr Q24H IV 12/18/24 21:15 12/26/24 11:33 7 MLS/HR Fentanyl Citrate 250 ml @ 2.5 mls/hr Q24H IV 12/18/24 23:15 12/26/24 04:59 17.5 MLS/HR Diagnostic Test (Pha) 1 strip Q6HR 12/19/24 12:00 12/26/24 12:20 1 STRIP Insulin Human Regular FOLLOW SLIDING SCALE Q6HR SC 12/19/24 12:00 Dextrose 50 ml UD IV 12/19/24 10:00 12/22/24 23:25 50 ML Albuterol 2.5 mg Q6HR NEB 12/19/24 18:00 12/26/24 11:46 2.5 MG Ipratropium [place] 0.5 mg Q6HR NEB 12/19/24 18:00 12/26/24 11:46 0.5 MG Pantoprazole Sodium 40 mg DAILY IV 12/21/24 10:00 12/26/24 11:08 40 MG Enoxaparin Sodium 40 mg DAILY SC 12/21/24 10:00 12/26/24 11:25 40 MG Piperacillin Sod/ Tazobactam Sod 100 ml @ 25 mls/hr Q6HR IV 12/21/24 12:00 12/26/24 12:20 25 MLS/HR Polyethylene Glycol 17 gm DAILY PO 12/22/24 10:00 12/26/24 11:26 17 GM Docusate Sodium 100 mg BID GT 12/22/24 10:00 12/26/24 11:08 100 MG Acetaminophen 325 mg Q4HP PRN PO 12/22/24 08:15 12/24/24 23:23 325 MG Thiamine HCl 100 mg DAILY IV 12/24/24 10:00 12/26/24 11:08 100 MG Folic Acid 1 mg/ Dextrose 50.2 ml @ 200.8 mls/ hr DAILY INJ 12/24/24 10:00 12/26/24 11:00 200.8 MLS/HR Propofol 100 ml @ 4.311 mls/ hr [id number] IV 12/24/24 04:00 12/26/24 13:22 38.799 MLS/HR Sodium Chloride 10 ml QSHIFT@10,22 IV 12/24/24 22:00 12/26/24 11:25 10 ML Amino Acids 0 ml @ 0 mls/hr PER PHARMACY IV 12/25/24 17:00 Amino Acids/ Electrolytes/ Dextrose 1,000 ml @ 41 mls/hr DAILY@2200 IV 12/25/24 22:00 12/26/24 21:59 12/25/24 21:25 41 MLS/HR Potassium Chloride 40 meq/ Magnesium Sulfate 4 meq/ Multivitamins 10 ml/Chromium/ Copper/Manganese/ Zinc 1 ml/Amino Acids/Dextrose 932 ml @ 39 mls/hr [id number] IV 12/26/24 22:00 12/27/24 21:59 laboratory and microbiology Laboratory Tests 12/26/24 03:33 Test 12/26/24 03:33 Range/Units Serum Glucose 97 74-106 mg/dL Assessment/Plan Speech And Hearing Director rounds Impression Acute hypoxemic respiratory failure ? Aspiration pneumonia Substance abuse Seizures Patient seen and examined in ICU Events On mechanical ventilation S/p intubation PEEP 5, FiO2 50% Bronchoscopy was performed at the bedside See separate note for procedure in detail Labs and imaging reviewed ABG reviewed Management Vent support Titrate to maintain sats 90% or above Sedation holiday daily If patient follows commands, proceed to weaning trial Pressure support 12/18, extubate when ready Okay to use Precedex as needed Antibiotics for ? aspiration pneumonia Okay to de-escalate Bronchodilators Monitor renal function Monitor electrolytes Supplement as needed Pressors as needed for hemodynamic support To maintain a mean arterial pressure of 65 mmHg Antiepileptics as ordered DVT prophylaxis Critical care time 35 minutes Dietary Evaluation Review Comments: 1) Continue TPN to meet at least 75% estimated needs 2) TF Vital High Protein @ 60ml/hr(goal) with current rate of propofol. TF at goal volume together with propofol provides 2471 kcal (100% eenrgy needs) & 126 gm protein (100% protein needs) 3) Monitor TPN tolerance, lab values, I/O, wt trend Expected Outcomes/Goals: To meet >75% estimated needs Fu 2-3 days Plan discussed with: Other (Rn) LI DUFFY MD Dec 26, 2024 13:30
--- NOTE | 2024-12-26 13:31 | DVHNC2 ---
Procedure - Procedure- Bronchoscopy and bronchial washings Indication- Secretions Procedure in detail Consent was obtained and timeout performed per protocol. The patient was placed on 100% FiO2. Olympus bronchoscope was used and passed through the endotracheal tube, tracheobronchial tree was examined. There were copious blood tinged secretions in the airways bilaterally that were loosened up with approximately 50 cc of normal saline and thoroughly suctioned into a separate specimen container. There were no endobronchial lesions however, mucosa appeared inflamed and easily friable. After the procedure, the scope was removed. Patient tolerated the procedure well. LI DUFFY MD Dec 26, 2024 13:31
[2024-12-26] MEDS: TPN PER PHARMACY IV NR (21:32)
[2024-12-27] VITALS (115 sets, daily range): BP systolic 97–145; BP diastolic 47–83; PULSE 65–99; RESP 15–32; TEMP 97.9–99.3; O2SAT 89–99
[2024-12-27 04:09] LABS: Hematocrit 35.2 % (41.0-53.0); Hemoglobin 11.8 g/dL (13.5-17.5); Mean Corpuscular Hemoglobin 30.4 pg (28.0-32.0); Mean Corpuscular Volume 90.3 fL (80.0-100.0)
[2024-12-27 04:19] LABS: Albumin 4.2 g/dL (3.2-4.8); Anion Gap 10 (5-15); BUN/Creatinine Ratio 15.7 (10.0-20.0); Bilirubin, Total 0.4 mg/dL (0.2-1.0); Calcium 10.3 mg/dL (8.7-10.4); Chloride 102 mmol/L (98-107); Glucose 92 mg/dL (74-106); Magnesium 1.9 mg/dL (1.6-2.6); Potassium 4.2 mmol/L (3.5-5.1); Sodium 143 mmol/L (136-145); Total Protein 7.5 g/dL (5.7-8.2)
--- NOTE | 2024-12-27 04:39 | DVH ---
CHEST RADIOGRAPH Indication: INTUBATED Technique: Single frontal view of the chest was obtained COMPARISON: XY CHEST PORTABLE on DOS: 12/26/24, XY CHEST PORTABLE on DOS: 12/25/24, XY CHEST PORTABLE o n DOS: 12/25/24, XY CHEST PORTABLE on DOS: 12/25/24, XY CHEST PORTABLE on DOS: 12/24/24 FINDINGS: Lines and Tubes: Unchanged. Lungs: Grossly stable appearing mild multifocal bilateral pulmonary airspace disease, predominating a t the bases. No definite pleural effusion. No pneumothorax. Cardiomediastinal contours: Unremarkable Bones: Unremarkable IMPRESSION: 1. Stable mild multifocal bilateral pulmonary airspace disease, most notably at the lung bases. 2. Lines and tubes unchanged.
[2024-12-27 04:41] LABS: Alanine Aminotransferase 47 U/L (7-40); Alkaline Phosphatase 145 U/L (46-116); Blood Urea Nitrogen 8 mg/dL (9-23); Carbon Dioxide 31 mmol/L (20-31)
[2024-12-27 05:07] LABS: Total Cells Counted 100.0 (100)
[2024-12-27 06:48] LABS: Base Excess 5.7 mmol/L (-2.0-3.0)
--- NOTE | 2024-12-27 11:04 | DVHPN2 ---
Progress Note - Dictate Date Seen: Dec 27, 2024 Medical Necessity Reason Pt with a Central, PICC or Fol: Yes The following are medically ne: Reed Catheter Reason for reed catheter: Strict I&O Subjective Mr. Perry is a 24 years old right-handed gentleman with a history of hypertension, pain syndrome, substance abuse, he was admitted to the [facility] on 12/17/2024 for new onset seizure activity. I have seen and examined the patient, discussed with his nurses and Dr. Wolfe. He is sedated, intubated, responsive to painful stimuli, pupils are small and r esponsive to lights He keeps having hypoxia Fentanyl 250 mcg/hour, Versed 7 mg/hour, propofol 20 mcg/minute, FiO2: 90% Urinalysis, 12/17/2024: Unremarkable Urine drug screening, 12/17/2024: Benzo Valproic acid, 12/17/2024: 22.1 Plasma alcohol, 12/17/2024: <3 ABG, 12/18/2024: Respiratory acidosis, 12/20/2024: Acidosis, 12/22/2024: Hypoxia, 12/24/2024: Hypoxia, carbon dioxide retention, 12/25/2024: Hypoxia, carbon dioxide retention WBC/HB/PLT/MCV, 12/20/2024: 8/12.4/233/90.4 CMP 12/18/2024: Unremarkable TBI/AST/ALT/AP, 12/20/2024: 0.7/44/45/143 EEG, 12/19/2019 10/26/24 13:15: Normal EEG, 12/23/2024: Moderately abnormal EEG Bronchoscopy 01/12/25: There were copious blood tinged secretions in the airways bilaterally Chest x-ray 12/18/2024: Endotracheal tube 0.7 cm above the rogers. Nasogastric tube in the proximal stomach Chest x-ray, 12/27/2024: 1. Stable mild multifocal bilateral pulmonary airspace disease, most notably at the lung bases. 2. Lines and tubes unchanged CT head, 12/17/2024: No evidence of acute intracranial abnormality. If symptoms persist, consider MRI for further evaluation MR head, 12/21/2024: No evidence of acute infarction, intracranial hemorrhage, mass effect or hydrocephalus. No evidence of mesial temporal sclerosis. Pansinusitis. Prominent bilateral cervical lymph nodes. This can be further evaluated with ultrasound (? DWI images 30, 14) vital signs Vital Sign Date Time Temp Pulse Resp B/P (MAP) Pulse Ox O2 Delivery O2 Flow Rate FiO2 12/27/24 10:24 72 20 117/74 (88) 94 90 12/27/24 10:07 Mechanical Ventilator+ 12/27/24 07:45 98.6 209.5 Total Intake and Output 12/26/24 12/26/24 12/27/24 15:00 23:00 07:00 Intake Total 1340.192 ml 1090.396 ml 953.398 ml Output Total 2250 ml 1925 ml Balance 1340.192 ml -1159.604 ml -971.602 ml medications Current Medications Medications Dose Ordered Sig/Rick Route Start Time Stop Time Status Last Admin Dose Admin Levetiracetam 100 ml @ 400 mls/hr BID IV 12/18/24 22:00 12/27/24 09:36 400 MLS/HR Lorazepam 1 mg Q5MINP PRN IV 12/18/24 11:00 12/23/24 08:43 1 MG Midazolam HCl 50 ml @ 1 mls/hr Q24H IV 12/18/24 21:15 12/27/24 09:36 7 MLS/HR Fentanyl Citrate 250 ml @ 2.5 mls/hr Q24H IV 12/18/24 23:15 12/27/24 09:43 15 MLS/HR Diagnostic Test (Pha) 1 strip Q6HR 12/19/24 12:00 12/27/24 05:46 1 STRIP Insulin Human Regular FOLLOW SLIDING SCALE Q6HR SC 12/19/24 12:00 Dextrose 50 ml UD IV 12/19/24 10:00 12/22/24 23:25 50 ML Albuterol 2.5 mg Q6HR NEB 12/19/24 18:00 12/27/24 06:08 2.5 MG Ipratropium [place] 0.5 mg Q6HR NEB 12/19/24 18:00 12/27/24 06:08 0.5 MG Pantoprazole Sodium 40 mg DAILY IV 12/21/24 10:00 12/27/24 09:35 40 MG Enoxaparin Sodium 40 mg DAILY SC 12/21/24 10:00 12/26/24 11:25 40 MG Piperacillin Sod/ Tazobactam Sod 100 ml @ 25 mls/hr Q6HR IV 12/21/24 12:00 12/27/24 05:46 25 MLS/HR Polyethylene Glycol 17 gm DAILY PO 12/22/24 10:00 12/27/24 09:35 17 GM Docusate Sodium 100 mg BID GT 12/22/24 10:00 12/27/24 09:35 100 MG Acetaminophen 325 mg Q4HP PRN PO 12/22/24 08:15 12/24/24 23:23 325 MG Thiamine HCl 100 mg DAILY IV 12/24/24 10:00 12/27/24 09:35 100 MG Folic Acid 1 mg/ Dextrose 50.2 ml @ 200.8 mls/ hr DAILY INJ 12/24/24 10:00 12/27/24 09:36 200.8 MLS/HR Propofol 100 ml @ 4.311 mls/ hr [id number] IV 12/24/24 04:00 12/27/24 09:36 38.799 MLS/HR Sodium Chloride 10 ml QSHIFT@10,22 IV 12/24/24 22:00 12/27/24 09:36 10 ML Amino Acids 0 ml @ 0 mls/hr PER PHARMACY IV 12/25/24 17:00 Potassium Chloride 40 meq/ Magnesium Sulfate 4 meq/ Multivitamins 10 ml/Chromium/ Copper/Manganese/ Zinc 1 ml/Amino Acids/Dextrose 932 ml @ 39 mls/hr [id number] IV 12/26/24 22:00 12/27/24 21:59 12/26/24 21:32 39 MLS/HR objective The patient is well-nourished and well-developed with no distress. The patient is intubated MENTAL STATUS: Subjective CRANIAL NERVES: Pupils are equal, round and nonreactive, small. There are corneal reflexes and doll's eyes phenomenon. No signs of facial weakness. There are gagging or coughing reflexes SENSATION: Responses to pain stimuli. MOTOR: Normal tone in the upper and lower extremity. Normal muscle bulk. No fasciculations. No spontaneous extremity movements REFLEXES: Deep tendon reflexes are symmetrical. No pathological reflexes. CEREBELLAR/COORDINATION: Deferred GAIT/STATION: deferred laboratory and microbiology Laboratory Tests 12/27/24 03:02 Test 12/27/24 03:02 Range/Units Serum Glucose 92 74-106 mg/dL Problem List Come Metabolic encephalopathy Hypoxic encephalopathy Toxic encephalopathy ? Status epileptics New onset seizure, status epileptics Likely secondary to substance abuse Rule out epileptic seizure or other acute symptomatic seizure The activity witnessed on 12/23/2024 was not typical to seizure, likely myoclonus Substance abuse ? Depression Respiratory failure/hypoxia, worse Assessment/Plan Monitoring Supportive treatment Telemetry Follow-up lab Follow up EEG, report pending ICU care Stabilize vitals/pressor drip Respiratory support/vent management Ativan for seizure breakthrough Keppra 1500 mg IV b.i.d. for the time being, he may not need preventive seizure treatment Need history from him directly Consider tele psych consultation Re: The previous substance abuse later More recommendation per clinical course This medical document was created using an electronic medical record system with Team[employer] dictation system. Although this document has been carefully reviewed, there may still be some phonetic and typographical errors. These areas are purely typographical due to imperfections of the software programs, and do not reflect any compromise in the patient's medical care. Prognosis guarded Dietary Evaluation Review Comments: 1) Continue TPN to meet at least 75% estimated needs 2) TF Vital High Protein @ 60ml/hr(goal) with current rate of propofol. TF at goal volume together with propofol provides 2471 kcal (100% eenrgy needs) & 126 gm protein (100% protein needs) 3) Monitor TPN tolerance, lab values, I/O, wt trend Expected Outcomes/Goals: To meet >75% estimated needs Fu 2-3 days Plan discussed with: Other BONNY PEREZ MD Dec 27, 2024 11:04
[2024-12-27] MEDS ORDERED: VANCOMYCIN PER PHARMACY 0 MG IV SCH (16:45)
--- NOTE | 2024-12-27 17:30 | DVHPNRES ---
Progress Note Date Seen: Dec 27, 2024 Resident Creating Document: STUART SAGASTUME RESIDENT Medical Necessity Reason Pt with a Central, PICC or Fol: Yes The following are medically ne: Reed Catheter Reason for reed catheter: Strict I&O Subjective Review of Systems Patient is a 24-year-old male with past medical history of hypertension, chronic pain, substance abuse disorder, who was brought in due to new onset seizures. Patient is sedated and mechanically ventilated, history was obtained from patient's mother Ms. Sabillon via telephone. According to the patient's mother, patient has been abusing laughing gas heavily for some time, patient went to by laughing gas on Friday12/15/2024 and used it with his friend where according to the friend patient consumed most of the canister. Patient's mom took him to the rehab on 12/16/2024 where he had a seizure and was taken to the hospital and subsequently discharged back to the rehab facility. On patient again started having seizures which is when he was taken to the hospital again and was subsequently intubated. Patient reported saying he is prescribed Depakote but he has been noncompliant, serum valproic levels were below therapeutic range at 22.1 Past surgical history: Denies Smoking: Uses tobacco vaporizer pen heavily daily Alcohol: Remote history of heavy alcohol use Drugs: Mother is unsure, however, notes he may have history of cocaine abuse and MDMA abuse Previously patient was living in a rented home with a roommate, for the last 1 week was living with mother. Review of systems could not be completed due to patient being sedated and mechanically ventilated. 12/18- initially patient is stable on Keppra 500 b.i.d. but on 12/18 a.m. and into p.m. patient has multiple rapid response consecutively for breakthrough seizures. First rapid response headed by Dr. Grigsby where multiple rounds of Ativan and Keppra load 1 g was given.. Thereafter patient has multiple other episodes between page patient is able to come back to baseline following commands. Finally patient has another rapid response for seizure breakthrough had a proximally 340 p.m. where [facility] is consulted to have expert advice to control seizures. Plan is made to complete Keppra load to maximum. Second-line plan is for valproate. However on a 3rd rapid response at approximately 5 p.m. patient goes on to seizure without returning to baseline for most 45 minutes. Although vitals were stable this is classified now status epilepticus and per guidance from tele neuro intubation needed with propofol. Patient is intubated approximately 530 p.m. there is moderate difficulty due to patient's morbid obesity. Procedure note for details, appreciate RT. Once intubation medications wearing off patient is very difficult to control seizures. Advancing dosing of propofol and Versed are required to maintain RASS of-3 to -4. Levophed is required given propofol causing hypotension. Right IJ cvc inserted also with difficulty due to short and obese neck, appreciate resident physicians. OG and urinary Reed placement w some difficulty, appreciate nursing. Placement of OG, right IJ CBC, ETT confirmed by chest x- ray. Patient care level advanced to ICU. We will maintain patient at high levels of sedation until neurology evaluation in house. 12/19-patient remains on multiple sedatives control seizures. Now in ICU room 103.. Patient is getting Versed 15, propofol 40, fentanyl 250, Levophed to. Maintaining RASS goal negative for. Patient is ventilated a.c. 20/550/45%/5.0. Vitals mostly stable. Heart rate is on the bradycardia side in 50s. Blood pressure stable with Levophed to maps low 70s. We will continue RASS-4 until neurology review tomorrow in house. Patient has been NPO for few days because of seizures, no bowel sounds today. Out of caution we will do TPN for today deferring enteral feeds until patient is on lower sedation. 12/21/24: Patient seen and examined at bedside. Noted to have some fevers and mild increase in leukocytosis, started on IV Zosyn. Mom and sister at bedside, details of illness explained, all questions answered and concerns addressed. 12/22/24: Patient seen and examined, plan to cpap trial tomorrow. 12/23/24: Overnight when Versed was decreased, patient was noted to have 3 seizures and then another seizure in the a.m., resumed Versed at 14 micrograms/hour. CPAP trial could not be completed. Added vancomycin. 12/24/2024: No further seizures. When down on fentanyl to 275, Versed 213, off of propofol right now. Patient is somewhat responsive and we will periodically move extremities. Chest x-ray showed slight improvement in bilateral effusions and stable airspace disease. Discontinued vancomycin. Creatinine kinase decreased to 1263. 12/25/24 -no significant changes. We will repeat a CK level. PICC line dislodged he will be replaced over guidewire. Electrolyte replacements.. We will maintain in deep sedation until week day for re-evaluation by Neurology for recurrent seizures. Vital signs are stable. Patient currently on fentanyl, Versed 8, propofol 30, fentanyl 200.. Patient is getting feeds Vital HP. Urine output dark brown. Ventilated a.c. 20/550/45%/5.0.. Patient is still having fevers and has required increasing amounts of oxygen saturation to maintain saturates. We will repeat blood cultures and sputum cultures, appreciate respiratory and obtaining that. 12/26/2024.-pulmonology plans for bronch today. ABG good. X-ray pending. We will continue sedatives given primary team's directives. Fentanyl 150 Versed 7 propofol 45. Clinimix,. Continuing IV antibiotics. Urine output adequate. Vitals stable no vasopressors map more than 75. On mechanical ventilation. A.c./20/5 50/50%/5.0.. We will continue sedation and sedation vacation trial tomorrow morning when primary returns. Update--after bronch we will try sedation vacation maximum 3-4 hours if he is doing well. Continue sedatives if any seizure activity is noted. We will try another sedation vacation tomorrow morning for primary to evaluate. 12/27/24: resumed vancomycin and tube feedings, started lactulose. increased PEEP to 8. went down on fentanyl to 150, versed 7 and prop 45. Objective vital signs Vital Sign Date Time Temp Pulse Resp B/P (MAP) Pulse Ox O2 Delivery O2 Flow Rate FiO2 12/27/24 17:15 99.0 79 20 125/72 (89) 92 210.2 12/27/24 16:30 85 12/27/24 14:14 Mechanical Ventilator+ Total Intake and Output 12/26/24 12/26/24 12/27/24 15:00 23:00 07:00 Intake Total 1340.192 ml 1090.396 ml 953.398 ml Output Total 2250 ml 1925 ml Balance 1340.192 ml -1159.604 ml -971.602 ml medications Current Medications Medications Dose Ordered Sig/Rick Route Start Time Stop Time Status Last Admin Dose Admin Levetiracetam 100 ml @ 400 mls/hr BID IV 12/18/24 22:00 12/27/24 09:36 400 MLS/HR Lorazepam 1 mg Q5MINP PRN IV 12/18/24 11:00 12/23/24 08:43 1 MG Midazolam HCl 50 ml @ 1 mls/hr Q24H IV 12/18/24 21:15 12/27/24 16:45 7 MLS/HR Fentanyl Citrate 250 ml @ 2.5 mls/hr Q24H IV 12/18/24 23:15 12/27/24 09:43 15 MLS/HR Diagnostic Test (Pha) 1 strip Q6HR 12/19/24 12:00 12/27/24 16:45 1 STRIP Insulin Human Regular FOLLOW SLIDING SCALE Q6HR SC 12/19/24 12:00 Dextrose 50 ml UD IV 12/19/24 10:00 12/22/24 23:25 50 ML Albuterol 2.5 mg Q6HR NEB 12/19/24 18:00 12/27/24 11:47 2.5 MG Ipratropium [place] 0.5 mg Q6HR NEB 12/19/24 18:00 12/27/24 11:47 0.5 MG Pantoprazole Sodium 40 mg DAILY IV 12/21/24 10:00 12/27/24 09:35 40 MG Enoxaparin Sodium 40 mg DAILY SC 12/21/24 10:00 12/27/24 12:47 40 MG Piperacillin Sod/ Tazobactam Sod 100 ml @ 25 mls/hr Q6HR IV 12/21/24 12:00 12/27/24 16:46 25 MLS/HR Polyethylene Glycol 17 gm DAILY PO 12/22/24 10:00 12/27/24 09:35 17 GM Docusate Sodium 100 mg BID GT 12/22/24 10:00 12/27/24 09:35 100 MG Acetaminophen 325 mg Q4HP PRN PO 12/22/24 08:15 12/24/24 23:23 325 MG Thiamine HCl 100 mg DAILY IV 12/24/24 10:00 12/27/24 09:35 100 MG Folic Acid 1 mg/ Dextrose 50.2 ml @ 200.8 mls/ hr DAILY INJ 12/24/24 10:00 12/27/24 09:36 200.8 MLS/HR Propofol 100 ml @ 4.311 mls/ hr [id number] IV 12/24/24 04:00 12/27/24 16:45 38.799 MLS/HR Sodium Chloride 10 ml QSHIFT@10,22 IV 12/24/24 22:00 12/27/24 09:36 10 ML Vancomycin HCl 0 ml @ 0 mls/hr UD IV 12/27/24 16:45 Enteral Nutritional Formula 1,000 ml 40ML/HR GT 12/27/24 16:45 Lactulose 15 ml DAILY PO 12/28/24 10:00 Vancomycin HCl 200 ml @ 200 mls/hr Q1H IV 12/27/24 17:30 12/27/24 19:29 Examination General Appearance: Sedated and mechanically ventilated obese adult. Constricted pupils. Pulmonary/Respiratory: Coarse bilateral breath sounds Cardiovascular/Chest: Tachycardia Peripheral Pulses: 2+ Pedal (R). 2+ Pedal (L) Abdominal Exam: Normal bowel sounds. Soft. normal abdomen, no visible veins, Nontender. No hepatospenomegaly. No masses Lower extremities: Negative lower extremity edema Skin Exam: Normal inspection. Normal color. Dry. Cool peripheral extremities laboratory and microbiology Laboratory Tests 12/27/24 03:02 Test 12/27/24 03:02 Range/Units Serum Glucose 92 74-106 mg/dL Microbiology Date/Time Source Procedure Growth Status 12/26/24 11:46 Bronchial Washings Gram Stain - Final Resulted 12/26/24 11:46 Bronchial Washings Respiratory Culture - Preliminary Resulted 12/25/24 15:20 Catheter Site Aerobic Culture - Preliminary Resulted 12/25/24 10:17 Blood Blood Culture - Preliminary NO GROWTH AFTER 48 HOURS OF INCUBATION. Resulted 12/20/24 17:00 Voided Urine Urine Culture - Final Complete Labs and/or images reviewed: Labs reviewed by me, Image(s) reviewed by me Problem List/Assessment/Plan Problem List/Assessment/Plan Neurology # acute likely toxic versus metabolic encephalopathy # new onset? Breakthrough grand mal seizures # medication nonadherence # possible alcohol withdrawal, unable to calculate CIWA # Sedated - Versed 13 - fentanyl to 275 - serum valproic acid levels below normal 22.1 - IV levetiracetam 1500 mg b.i.d. - IV lorazepam as needed for seizures - head CT: No evidence of acute intracranial abnormality. If symptoms persist, consider MRI for further evaluation. - neurology on board - brain MRI: No evidence of acute infarction, intracranial hemorrhage, mass effect or hydrocephalus. No effects of mesial temporal sclerosis. Pansinusitis. Prominent bilateral cervical lymph nodes. - last seizure 12/19/2024 around 6:00 p.m. - brain EEG largely unremarkable - IV banana bag x2, IV thiamine, IV folic acid Cardiovascular # essential hypertension # sedation related hypotension on mechanical ventilation - stopped IV NS at 60 cc/hour Respiratory # Acute hypoxic respiratory failure secondary to intractable seizures # probable aspiration pneumonia # Ventilator - intubated 12/18/2024 - on [facility] vent : VCAC Mode RR 20 TV 550ml, PEEP Of 8 and FiO2 of 90% - ipratropium and albuterol med nebs - CXR: Hypoinflated lungs with bibasilar atelectasis - started on IV Zosyn 12/21/2024 - started IV vancomycin per pharmacy on 12/23/2024, discontinued vancomycin on 12/24/2024 - resumed vancomycin on 12/27/24 GI # transaminitis # Peptic ulcer prophylaxis # vitamin B12 deficiency # constipation, likely slow transit -Pantoprazole 40 mg IV daily - negative hepatitis-B and hepatitis-C - repleted with 1000 mcg B12 - lactulose daily # Reed catheter placed on 12/18/2024 Nephrology # hypernatremia, now improved # hypokalemia, now improved - serum creatinine 2159 on 12/23/2024, 1263 on 12/24/2024 - monitor Infectious disease # aspiration pneumonia due to mssa # sepsis due to above - pancultures - IV Zosyn - discontinued IV vancomycin per pharmacy on 12/24/2024 - Tylenol as needed for fever - monitor Hem/onc # microcytic anemia, mild - monitor Psychiatry # substance use disorder - we will consider Psychiatry consult once patient is extubated DVT prophylaxis - Lovenox 40 mg subcutaneous daily Nutrition - tube feedings started on 12/21/2024 Lines Right PICC placed on 12/24/24 Left arm 20 gauge placed on 12/17/2024 Drips - Versed 7 - fentanyl 150 - propofol 45 on [facility] vent : VCAC Mode RR 20 TV 550ml, PEEP Of 8 and FiO2 of 90% Critical care time 83 minutes excluding procedure. Code status discussed greater than 20 minutes: Full CODE STATUS. Plan discussed with Dr. Iqbal Plan discussed with patient's mother at bedside, all questions were answered and concerns were addressed. Plan discussed with: Other (RN) My Orders My Orders Orders - STUART SAGASTUME Procedure Category Date Status Time Vancomycin Per PHA 12/27/24 In Process Pharmacy 16:45 Nutritional PHA 12/27/24 In Process Supplements (Vital Af 16:45 Lactulose Oral PHA 12/28/24 In Process 10:00 Vancomycin 1gm/200ml PHA 12/27/24 In Process Pm 17:30 Dietary Evaluation Review Comments: 1) Continue TPN to meet at least 75% estimated needs 2) TF Vital High Protein @ 60ml/hr(goal) with current rate of propofol. TF at goal volume together with propofol provides 2471 kcal (100% eenrgy needs) & 126 gm protein (100% protein needs) 3) Monitor TPN tolerance, lab values, I/O, wt trend Expected Outcomes/Goals: To meet >75% estimated needs Fu 2-3 days Date of Service: Dec 27, 2024 Billing Provider: ANTHONY IQBAL MD Common Visit Codes: 88186-LSGHHBED CARE 30-74 MIN, 50580-[id number] CARE-EACH +30MIN STUART SAGASTUME Dec 27, 2024 17:30 ANTHONY IQBAL MD Dec 28, 2024 15:45
[2024-12-27] MEDS: LACTULOSE 20Gm/30ML SOLN PO ONE (17:43)
[2024-12-27] MEDS ORDERED: TPN PER PHARMACY IV NR (22:00)
[2024-12-28] VITALS (109 sets, daily range): BP systolic 96–137; BP diastolic 43–74; PULSE 63–97; RESP 14–38; TEMP 98.4–100.2; O2SAT 63–98
[2024-12-28] MEDS: Vital AF 1.2 Cal 1 liter bottle GT SCH (02:01)
[2024-12-28] MEDS: fentaNYL Drip 2500mCg/250mlNS 250 ML IV SCH (02:30)
[2024-12-28 04:01] LABS: Hematocrit 33.6 % (41.0-53.0); Hemoglobin 11.4 g/dL (13.5-17.5); Mean Corpuscular Hemoglobin 30.3 pg (28.0-32.0); Mean Corpuscular Volume 88.8 fL (80.0-100.0)
[2024-12-28 04:43] LABS: Albumin 4.1 g/dL (3.2-4.8); Anion Gap 8 (5-15); BUN/Creatinine Ratio 25.0 (10.0-20.0); Blood Urea Nitrogen 10 mg/dL (9-23); Calcium 9.8 mg/dL (8.7-10.4); Carbon Dioxide 28 mmol/L (20-31); Chloride 104 mmol/L (98-107); Glucose 93 mg/dL (74-106); Magnesium 1.7 mg/dL (1.6-2.6); Potassium 3.6 mmol/L (3.5-5.1); Sodium 140 mmol/L (136-145); Total Protein 7.2 g/dL (5.7-8.2)
[2024-12-28 04:44] LABS: Bilirubin, Total 0.3 mg/dL (0.2-1.0)
[2024-12-28 04:49] LABS: Alanine Aminotransferase 43 U/L (7-40); Alkaline Phosphatase 142 U/L (46-116)
[2024-12-28 05:05] LABS: Total Cells Counted 100.0 (100)
--- NOTE | 2024-12-28 05:05 | DVH ---
CHEST RADIOGRAPH Indication: pna Technique: Single frontal view of the chest was obtained COMPARISON: XY CHEST PORTABLE on DOS: 12/27/24, XY CHEST PORTABLE on DOS: 12/26/24, XY CHEST PORTABLE o n DOS: 12/25/24, XY CHEST PORTABLE on DOS: 12/25/24, XY CHEST PORTABLE on DOS: 12/25/24 FINDINGS: Lines and Tubes: Unchanged Lungs: Stable bilateral pleural effusions with mild increased prominence of the right basilar pulmona ry markings, possibly representing atelectasis. No pneumothorax. Cardiomediastinal contours: Unremarkable Bones: Unremarkable IMPRESSION: 1. Increased prominence of the right basilar pulmonary markings, possibly representing atelectasis. 2. Stable bilateral pleural effusions. 3. Lines and tubes unchanged.
[2024-12-28 07:16] LABS: Base Excess -1.7 mmol/L (-2.0-3.0)
--- NOTE | 2024-12-28 09:59 | DVHPN2 ---
Progress Note - Dictate Date Seen: Dec 28, 2024 Medical Necessity Reason Pt with a Central, PICC or Fol: Yes The following are medically ne: Reed Catheter Reason for reed catheter: Strict I&O Subjective Mr. Perry is a 24 years old right-handed gentleman with a history of hypertension, pain syndrome, substance abuse, he was admitted to the [facility] on 12/17/2024 for new onset seizure activity. I have seen and examined the patient, discussed with his nurses. He is sedated, intubated, not responsive to painful stimuli, pupils are small and responsive to lights. He he is not doing well, he needs more oxygen He moved his left arm once when I was in the room which was not triggered by touch, painful stimuli He was responsive to pain when respiratory therapist was drawing ABG Fentanyl 125 mcg/hour, Versed 7 mg/hour, propofol 45 mcg/minute, FiO2: 100% Urinalysis, 12/17/2024: Unremarkable Urine drug screening, 12/17/2024: Benzo Valproic acid, 12/17/2024: 22.1 Plasma alcohol, 12/17/2024: <3 ABG, 12/18/2024: Respiratory acidosis, 12/20/2024: Acidosis, 12/22/2024: Hypoxia, 12/24/2024: Hypoxia, carbon dioxide retention, 12/25/2024: Hypoxia, carbon dioxide retention WBC/HB/PLT/MCV, 12/20/2024: 8/12.4/233/90.4 CMP 12/18/2024: Unremarkable TBI/AST/ALT/AP, 12/20/2024: 0.7/44/45/143 EEG, 12/19/2019 10/26/24 13:15: Normal EEG, 12/23/2024: Moderately abnormal EEG Bronchoscopy 01/12/25: There were copious blood tinged secretions in the airways bilaterally Chest x-ray 12/18/2024: Endotracheal tube 0.7 cm above the rogers. Nasogastric tube in the proximal stomach Chest x-ray, 12/27/2024: 1. Stable mild multifocal bilateral pulmonary airspace disease, most notably at the lung bases. 2. Lines and tubes unchanged CT head, 12/17/2024: No evidence of acute intracranial abnormality. If symptoms persist, consider MRI for further evaluation MR head, 12/21/2024: No evidence of acute infarction, intracranial hemorrhage, mass effect or hydrocephalus. No evidence of mesial temporal sclerosis. Pansinusitis. Prominent bilateral cervical lymph nodes. This can be further evaluated with ultrasound (? DWI images 30, 14) vital signs Vital Sign Date Time Temp Pulse Resp B/P (MAP) Pulse Ox O2 Delivery O2 Flow Rate FiO2 12/28/24 09:25 75 20 109/53 (71) 91 100 12/28/24 06:45 99.7 211.5 12/28/24 06:00 Mechanical Ventilator+ Total Intake and Output 12/27/24 12/27/24 12/28/24 15:00 23:00 07:00 Intake Total 1195.2 ml 1378.0 ml 1065.6 ml Output Total 1900 ml 2000 ml Balance 1195.2 ml -522.0 ml -934.4 ml medications Current Medications Medications Dose Ordered Sig/Rick Route Start Time Stop Time Status Last Admin Dose Admin Levetiracetam 100 ml @ 400 mls/hr BID IV 12/18/24 22:00 12/27/24 21:28 400 MLS/HR Lorazepam 1 mg Q5MINP PRN IV 12/18/24 11:00 12/23/24 08:43 1 MG Midazolam HCl 50 ml @ 1 mls/hr Q24H IV 12/18/24 21:15 12/28/24 06:15 7 MLS/HR Diagnostic Test (Pha) 1 strip Q6HR 12/19/24 12:00 12/28/24 05:33 1 STRIP Insulin Human Regular FOLLOW SLIDING SCALE Q6HR SC 12/19/24 12:00 Dextrose 50 ml UD IV 12/19/24 10:00 12/22/24 23:25 50 ML Albuterol 2.5 mg Q6HR NEB 12/19/24 18:00 12/28/24 05:56 2.5 MG Ipratropium [place] 0.5 mg Q6HR NEB 12/19/24 18:00 12/28/24 05:56 0.5 MG Pantoprazole Sodium 40 mg DAILY IV 12/21/24 10:00 12/27/24 09:35 40 MG Enoxaparin Sodium 40 mg DAILY SC 12/21/24 10:00 12/27/24 12:47 40 MG Piperacillin Sod/ Tazobactam Sod 100 ml @ 25 mls/hr Q6HR IV 12/21/24 12:00 12/28/24 05:32 25 MLS/HR Polyethylene Glycol 17 gm DAILY PO 12/22/24 10:00 12/27/24 09:35 17 GM Docusate Sodium 100 mg BID GT 12/22/24 10:00 12/27/24 21:27 100 MG Acetaminophen 325 mg Q4HP PRN PO 12/22/24 08:15 12/28/24 06:08 325 MG Thiamine HCl 100 mg DAILY IV 12/24/24 10:00 12/27/24 09:35 100 MG Folic Acid 1 mg/ Dextrose 50.2 ml @ 200.8 mls/ hr DAILY INJ 12/24/24 10:00 12/27/24 09:36 200.8 MLS/HR Propofol 100 ml @ 4.311 mls/ hr [id number] IV 12/24/24 04:00 12/28/24 08:19 25.866 MLS/HR Sodium Chloride 10 ml QSHIFT@10,22 IV 12/24/24 22:00 12/27/24 21:28 10 ML Vancomycin HCl 0 ml @ 0 mls/hr UD IV 12/27/24 16:45 Enteral Nutritional Formula 1,000 ml 40ML/HR GT 12/27/24 16:45 12/28/24 02:01 1,000 ML Lactulose 15 ml DAILY PO 12/28/24 10:00 Fentanyl Citrate 250 ml @ 2.5 mls/hr Q24H IV 12/28/24 02:30 objective The patient is well-nourished and well-developed with no distress. The patient is intubated MENTAL STATUS: Subjective CRANIAL NERVES: Pupils are equal, round and nonreactive, small. There are corneal reflexes and doll's eyes phenomenon. No signs of facial weakness. There are gagging or coughing reflexes SENSATION: Responses to pain stimuli. MOTOR: Normal tone in the upper and lower extremity. Normal muscle bulk. No fasciculations. No spontaneous extremity movements (subjective) REFLEXES: Deep tendon reflexes are symmetrical. No pathological reflexes. CEREBELLAR/COORDINATION: Deferred GAIT/STATION: deferred laboratory and microbiology Laboratory Tests 12/28/24 03:40 Test 12/28/24 03:40 Range/Units Serum Glucose 93 74-106 mg/dL Problem List Come Metabolic encephalopathy Hypoxic encephalopathy Toxic encephalopathy ? Status epileptics New onset seizure, status epileptics Likely secondary to substance abuse Rule out epileptic seizure or other acute symptomatic seizure The activity witnessed on 12/23/2024 was not typical to seizure, likely myoclonus Substance abuse ? Depression Respiratory failure/hypoxia Overall, he is doing worse Assessment/Plan Monitoring Supportive treatment Telemetry Follow-up lab ICU care Stabilize vitals/pressor drip Respiratory support/vent management Ativan for seizure breakthrough Reduce the Keppra to 1000 mg IV b.i.d. , he may not need preventive seizure treatment Need history from him directly Consider tele psych consultation Re: The previous substance abuse later More recommendation per clinical course This medical document was created using an electronic medical record system with [employer] dictation system. Although this document has been carefully reviewed, there may still be some phonetic and typographical errors. These areas are purely typographical due to imperfections of the software programs, and do not reflect any compromise in the patient's medical care. Prognosis guarded Dietary Evaluation Review Comments: 1) Continue TPN to meet at least 75% estimated needs 2) TF Vital High Protein @ 60ml/hr(goal) with current rate of propofol. TF at goal volume together with propofol provides 2471 kcal (100% eenrgy needs) & 126 gm protein (100% protein needs) 3) Monitor TPN tolerance, lab values, I/O, wt trend Expected Outcomes/Goals: To meet >75% estimated needs Fu 2-3 days Plan discussed with: Other Critical Care Time(min): 30 BONNY PEREZ MD Dec 28, 2024 09:59
[2024-12-28] MEDS: LACTULOSE 20Gm/30ML SOLN PO SCH (10:19)
[2024-12-28] MEDS: VANCOMYCIN 1GM/200ML PM 200 ML IV SCH (13:12)
--- NOTE | 2024-12-28 16:51 | DVHPNRES ---
Progress Note Date Seen: Dec 28, 2024 Resident Creating Document: STUART SAGASTUME RESIDENT Medical Necessity Reason Pt with a Central, PICC or Fol: Yes The following are medically ne: Reed Catheter Reason for reed catheter: Strict I&O Subjective Review of Systems Patient is a 24-year-old male with past medical history of hypertension, chronic pain, substance abuse disorder, who was brought in due to new onset seizures. Patient is sedated and mechanically ventilated, history was obtained from patient's mother Ms. Sabillon via telephone. According to the patient's mother, patient has been abusing laughing gas heavily for some time, patient went to by laughing gas on Friday12/15/2024 and used it with his friend where according to the friend patient consumed most of the canister. Patient's mom took him to the rehab on 12/16/2024 where he had a seizure and was taken to the hospital and subsequently discharged back to the rehab facility. On patient again started having seizures which is when he was taken to the hospital again and was subsequently intubated. Patient reported saying he is prescribed Depakote but he has been noncompliant, serum valproic levels were below therapeutic range at 22.1 Past surgical history: Denies Smoking: Uses tobacco vaporizer pen heavily daily Alcohol: Remote history of heavy alcohol use Drugs: Mother is unsure, however, notes he may have history of cocaine abuse and MDMA abuse Previously patient was living in a rented home with a roommate, for the last 1 week was living with mother. Review of systems could not be completed due to patient being sedated and mechanically ventilated. 12/18- initially patient is stable on Keppra 500 b.i.d. but on 12/18 a.m. and into p.m. patient has multiple rapid response consecutively for breakthrough seizures. First rapid response headed by Dr. Grigsby where multiple rounds of Ativan and Keppra load 1 g was given.. Thereafter patient has multiple other episodes between page patient is able to come back to baseline following commands. Finally patient has another rapid response for seizure breakthrough had a proximally 340 p.m. where [facility] neurology is consulted to have expert advice to control seizures. Plan is made to complete Keppra load to maximum. Second-line plan is for valproate. However on a 3rd rapid response at approximately 5 p.m. patient goes on to seizure without returning to baseline for most 45 minutes. Although vitals were stable this is classified now status epilepticus and per guidance from tele neuro intubation needed with propofol. Patient is intubated approximately 530 p.m. there is moderate difficulty due to patient's morbid obesity. Procedure note for details, appreciate RT. Once intubation medications wearing off patient is very difficult to control seizures. Advancing dosing of propofol and Versed are required to maintain RASS of-3 to -4. Levophed is required given propofol causing hypotension. Right IJ cvc inserted also with difficulty due to short and obese neck, appreciate resident physicians. OG and urinary Reed placement w some difficulty, appreciate nursing. Placement of OG, right IJ CBC, ETT confirmed by chest x- ray. Patient care level advanced to ICU. We will maintain patient at high levels of sedation until neurology evaluation in house. 12/19-patient remains on multiple sedatives control seizures. Now in ICU room 103.. Patient is getting Versed 15, propofol 40, fentanyl 250, Levophed to. Maintaining RASS goal negative for. Patient is ventilated a.c. 20/550/45%/5.0. Vitals mostly stable. Heart rate is on the bradycardia side in 50s. Blood pressure stable with Levophed to maps low 70s. We will continue RASS-4 until neurology review tomorrow in house. Patient has been NPO for few days because of seizures, no bowel sounds today. Out of caution we will do TPN for today deferring enteral feeds until patient is on lower sedation. 12/21/24: Patient seen and examined at bedside. Noted to have some fevers and mild increase in leukocytosis, started on IV Zosyn. Mom and sister at bedside, details of illness explained, all questions answered and concerns addressed. 12/22/24: Patient seen and examined, plan to cpap trial tomorrow. 12/23/24: Overnight when Versed was decreased, patient was noted to have 3 seizures and then another seizure in the a.m., resumed Versed at 14 micrograms/hour. CPAP trial could not be completed. Added vancomycin. 12/24/2024: No further seizures. When down on fentanyl to 275, Versed 213, off of propofol right now. Patient is somewhat responsive and we will periodically move extremities. Chest x-ray showed slight improvement in bilateral effusions and stable airspace disease. Discontinued vancomycin. Creatinine kinase decreased to 1263. 12/25/24 -no significant changes. We will repeat a CK level. PICC line dislodged he will be replaced over guidewire. Electrolyte replacements.. We will maintain in deep sedation until week day for re-evaluation by Neurology for recurrent seizures. Vital signs are stable. Patient currently on fentanyl, Versed 8, propofol 30, fentanyl 200.. Patient is getting feeds Vital HP. Urine output dark brown. Ventilated a.c. 20/550/45%/5.0.. Patient is still having fevers and has required increasing amounts of oxygen saturation to maintain saturates. We will repeat blood cultures and sputum cultures, appreciate respiratory and obtaining that. 12/26/2024.-pulmonology plans for bronch today. ABG good. X-ray pending. We will continue sedatives given primary team's directives. Fentanyl 150 Versed 7 propofol 45. Clinimix,. Continuing IV antibiotics. Urine output adequate. Vitals stable no vasopressors map more than 75. On mechanical ventilation. A.c./20/5 50/50%/5.0.. We will continue sedation and sedation vacation trial tomorrow morning when primary returns. Update--after bronch we will try sedation vacation maximum 3-4 hours if he is doing well. Continue sedatives if any seizure activity is noted. We will try another sedation vacation tomorrow morning for primary to evaluate. 12/27/24: resumed vancomycin and tube feedings, started lactulose. increased PEEP to 8. went down on fentanyl to 150, versed 7 and prop 45. 12/28/2024: Continues to have low-grade fever, on FiO2 100% saturating in the early 90s, peak pressure 29 mmHg. Scheduled for repeat bronchoscopy today. Objective vital signs Vital Sign Date Time Temp Pulse Resp B/P (MAP) Pulse Ox O2 Delivery O2 Flow Rate FiO2 12/28/24 16:00 98.6 64 20 102/55 (71) 93 209.5 12/28/24 15:38 100 12/28/24 06:00 Mechanical Ventilator+ Total Intake and Output 12/27/24 12/27/24 12/28/24 15:00 23:00 07:00 Intake Total 1195.2 ml 1378.0 ml 1065.6 ml Output Total 1900 ml 2000 ml Balance 1195.2 ml -522.0 ml -934.4 ml medications Current Medications Medications Dose Ordered Sig/Rick Route Start Time Stop Time Status Last Admin Dose Admin Lorazepam 1 mg Q5MINP PRN IV 12/18/24 11:00 12/23/24 08:43 1 MG Midazolam HCl 50 ml @ 1 mls/hr Q24H IV 12/18/24 21:15 12/28/24 13:05 7 MLS/HR Diagnostic Test (Pha) 1 strip Q6HR 12/19/24 12:00 12/28/24 11:53 1 STRIP Insulin Human Regular FOLLOW SLIDING SCALE Q6HR SC 12/19/24 12:00 Dextrose 50 ml UD IV 12/19/24 10:00 12/22/24 23:25 50 ML Albuterol 2.5 mg Q6HR NEB 12/19/24 18:00 12/28/24 11:17 2.5 MG Ipratropium [place] 0.5 mg Q6HR NEB 12/19/24 18:00 12/28/24 11:17 0.5 MG Pantoprazole Sodium 40 mg DAILY IV 12/21/24 10:00 12/28/24 10:06 40 MG Enoxaparin Sodium 40 mg DAILY SC 12/21/24 10:00 12/28/24 10:09 40 MG Piperacillin Sod/ Tazobactam Sod 100 ml @ 25 mls/hr Q6HR IV 12/21/24 12:00 12/28/24 11:49 25 MLS/HR Polyethylene Glycol 17 gm DAILY PO 12/22/24 10:00 12/27/24 09:35 17 GM Docusate Sodium 100 mg BID GT 12/22/24 10:00 12/27/24 21:27 100 MG Acetaminophen 325 mg Q4HP PRN PO 12/22/24 08:15 12/28/24 06:08 325 MG Thiamine HCl 100 mg DAILY IV 12/24/24 10:00 12/28/24 10:06 100 MG Folic Acid 1 mg/ Dextrose 50.2 ml @ 200.8 mls/ hr DAILY INJ 12/24/24 10:00 12/28/24 10:30 200.8 MLS/HR Propofol 100 ml @ 4.311 mls/ hr [id number] IV 12/24/24 04:00 12/28/24 15:34 38.799 MLS/HR Sodium Chloride 10 ml QSHIFT@10,22 IV 12/24/24 22:00 12/28/24 10:06 10 ML Vancomycin HCl 0 ml @ 0 mls/hr UD IV 12/27/24 16:45 Enteral Nutritional Formula 1,000 ml 40ML/HR GT 12/27/24 16:45 12/28/24 02:01 1,000 ML Lactulose 15 ml DAILY PO 12/28/24 10:00 12/28/24 10:19 15 ML Fentanyl Citrate 250 ml @ 2.5 mls/hr Q24H IV 12/28/24 02:30 Levetiracetam 100 ml @ 400 mls/hr BID IV 12/28/24 10:00 Vancomycin HCl 200 ml @ 200 mls/hr DAILY@0100,0200,1300,1400 IV 12/28/24 13:00 12/28/24 14:47 200 MLS/HR Examination General Appearance: Sedated and mechanically ventilated obese adult. Constricted pupils. Pulmonary/Respiratory: Coarse bilateral breath sounds Cardiovascular/Chest: Tachycardia Peripheral Pulses: 2+ Pedal (R). 2+ Pedal (L) Abdominal Exam: Normal bowel sounds. Soft. normal abdomen, no visible veins, Nontender. No hepatospenomegaly. No masses Lower extremities: Negative lower extremity edema Skin Exam: Normal inspection. Normal color. Dry. Cool peripheral extremities laboratory and microbiology Laboratory Tests 12/28/24 03:40 Test 12/28/24 03:40 Range/Units Serum Glucose 93 74-106 mg/dL Microbiology Date/Time Source Procedure Growth Status 12/26/24 11:46 Bronchial Washings Gram Stain - Final Complete 12/26/24 11:46 Respiratory Culture - Final Staphylococcus aureus Complete 12/25/24 15:20 Catheter Site Aerobic Culture - Final Staphylococcus epidermidis Complete 12/25/24 10:17 Blood Blood Culture - Preliminary NO GROWTH AFTER 72 HOURS OF INCUBATION. Resulted 12/20/24 17:00 Voided Urine Urine Culture - Final Complete Labs and/or images reviewed: Labs reviewed by me, Image(s) reviewed by me Problem List/Assessment/Plan Problem List/Assessment/Plan Neurology # acute likely toxic versus metabolic encephalopathy # new onset? Breakthrough grand mal seizures # medication nonadherence # possible alcohol withdrawal, unable to calculate CIWA # Sedated - Versed 13 - fentanyl to 275 - serum valproic acid levels below normal 22.1 - IV levetiracetam 1500 mg b.i.d. - IV lorazepam as needed for seizures - head CT: No evidence of acute intracranial abnormality. If symptoms persist, consider MRI for further evaluation. - neurology on board - brain MRI: No evidence of acute infarction, intracranial hemorrhage, mass effect or hydrocephalus. No effects of mesial temporal sclerosis. Pansinusitis. Prominent bilateral cervical lymph nodes. - last seizure 12/19/2024 around 6:00 p.m. - brain EEG largely unremarkable - IV banana bag x2, IV thiamine, IV folic acid Cardiovascular # essential hypertension # sedation related hypotension on mechanical ventilation - stopped IV NS at 60 cc/hour Respiratory # Acute hypoxic respiratory failure secondary to intractable seizures # probable aspiration pneumonia, cultures growing MSSA # Ventilator - intubated 12/18/2024 - on [facility] : VCAC Mode RR 20 TV 550ml, PEEP Of 8 and FiO2 of 90% - ipratropium and albuterol med nebs - CXR: Hypoinflated lungs with bibasilar atelectasis - started on IV Zosyn 12/21/2024 - started IV vancomycin per pharmacy on 12/23/2024, discontinued vancomycin on 12/24/2024 - resumed vancomycin on 12/27/24 GI # transaminitis # Peptic ulcer prophylaxis # vitamin B12 deficiency # constipation, likely slow transit -Pantoprazole 40 mg IV daily - negative hepatitis-B and hepatitis-C - repleted with 1000 mcg B12 - lactulose daily # Reed catheter placed on 12/18/2024 Nephrology # hypernatremia, now improved # hypokalemia, now improved - serum creatinine 2159 on 12/23/2024, 1263 on 12/24/2024 - monitor Infectious disease # aspiration pneumonia # sepsis due to above # right IJ catheter tip (placed on 12/18/2024, removed on 12/24/2024) culture growing staph epidermidis - pancultures - IV Zosyn - discontinued IV vancomycin per pharmacy on 12/24/2024 - Tylenol as needed for fever - monitor Hem/onc # microcytic anemia, mild - monitor Psychiatry # substance use disorder - we will consider Psychiatry consult once patient is extubated DVT prophylaxis - Lovenox 40 mg subcutaneous daily Nutrition - tube feedings started on 12/21/2024 Lines Right PICC placed on 12/24/24 Left arm 20 gauge placed on 12/17/2024 Drips - Versed 7 - fentanyl 150 - [facility] VCAC Mode RR 20 TV 550ml, PEEP Of 8 and FiO2 of 90% Critical care time 81 minutes excluding procedure. Code status discussed greater than 20 minutes: Full CODE STATUS. Plan discussed with Dr. Iqbal Left voicemail for patient's mother Ms. Sabillon at [phone] at 4:45 p.m. Plan discussed with: Other (RN) My Orders My Orders Orders - STUART SAGASTUME Procedure Category Date Status Time Chest Portable XY 12/28/24 Resulted 04:00 Abg W/ Co-Ox RT 12/28/24 Logged 04:00 Vancomycin 1gm/200ml PHA 12/28/24 In Process Pm 13:00 Vancomycin,Trough LAB 12/30/24 Verified 00:00 Vancomycin Per JADIEL 12/28/24 In Process Pharmacy Protoc 13:00 Creatinine LAB 12/29/24 Verified 04:00 Vancomycin Per JADIEL 12/28/24 In Process Pharmacy Protoc 13:00 Dietary Evaluation Review Comments: 1) Continue TPN to meet at least 75% estimated needs 2) TF Vital High Protein @ 60ml/hr(goal) with current rate of propofol. TF at goal volume together with propofol provides 2471 kcal (100% eenrgy needs) & 126 gm protein (100% protein needs) 3) Monitor TPN tolerance, lab values, I/O, wt trend Expected Outcomes/Goals: To meet >75% estimated needs Fu 2-3 days Date of Service: Dec 29, 2024 Billing Provider: ANTHONY IQBAL MD Common Visit Codes: 50929-KCPDWHRU CARE 30-74 MIN, 97618-[id number] CARE-EACH +30MIN STUART SAGASTUME Dec 28, 2024 16:51 ANTHONY IQBAL MD Dec 29, 2024 14:28
[2024-12-28] MEDS: levETIRAcetam 1000 mg/100ml 100 ML IV SCH (17:51)
[2024-12-28] MEDS: FUROSEMIDE 40 MG/4 ML VIAL IV ONE (18:26)
--- NOTE | 2024-12-28 18:32 | DVHNC2 ---
Procedure - Procedure- Bronchoscopy and bronchial washings Indication- Hypoxemia Procedure in detail Consent was obtained and timeout performed per protocol. The patient was placed on 100% FiO2. Olympus bronchoscope was used and passed through the endotracheal tube, tracheobronchial tree was examined. There were minimal secretions distally, no endobronchial lesions and mucosa appeared inflamed and easily friable. After the procedure, the scope was removed. Patient tolerated the procedure well. LI DUFFY MD Dec 28, 2024 18:32
[2024-12-29] VITALS (114 sets, daily range): BP systolic 99–135; BP diastolic 42–79; PULSE 61–101; RESP 14–40; TEMP 98.6–100; O2SAT 88–96
[2024-12-29 02:17] LABS: Hematocrit 32.6 % (41.0-53.0); Hemoglobin 11.2 g/dL (13.5-17.5); Mean Corpuscular Hemoglobin 30.6 pg (28.0-32.0); Mean Corpuscular Volume 88.7 fL (80.0-100.0)
[2024-12-29 02:26] LABS: Chloride 100 mmol/L (98-107); Potassium 3.6 mmol/L (3.5-5.1); Sodium 139 mmol/L (136-145)
[2024-12-29 02:27] LABS: Anion Gap 10 (5-15); Calcium 9.9 mg/dL (8.7-10.4); Carbon Dioxide 29 mmol/L (20-31)
[2024-12-29 02:32] LABS: BUN/Creatinine Ratio 20.4 (10.0-20.0); Blood Urea Nitrogen 11 mg/dL (9-23); Glucose 80 mg/dL (74-106)
[2024-12-29 03:37] LABS: Total Cells Counted 100.0 (100)
--- NOTE | 2024-12-29 05:03 | DVH ---
CHEST RADIOGRAPH Indication: INTUBATION Technique: Single frontal view of the chest was obtained COMPARISON: XY CHEST PORTABLE on DOS: 12/28/24, XY CHEST PORTABLE on DOS: 12/27/24, XY CHEST PORTABLE o n DOS: 12/26/24, XY CHEST PORTABLE on DOS: 12/25/24, XY CHEST PORTABLE on DOS: 12/25/24 FINDINGS: Lines and Tubes: Slight interval retraction of the endotracheal tube such that the tip projects appro ximately 4.4 cm above the level of the rogers. Remaining lines and tubes unchanged. Lungs: Stable bilateral pleural effusions and right basilar pulmonary airspace disease. Diffuse incr eased prominence of the pulmonary vasculature redemonstrated. No pneumothorax. Cardiomediastinal contours: Cardiomegaly. Bones: Unremarkable IMPRESSION: 1. Stable cardiomegaly, bilateral pleural effusions and moderate diffuse increased prominence of the pulmonary vasculature. 2. Right basilar pulmonary airspace disease. 3. Interval retraction of endotracheal tube as above. Remaining lines and tubes unchanged.
[2024-12-29 07:04] LABS: Base Excess 4.0 mmol/L (-2.0-3.0)
--- NOTE | 2024-12-29 10:06 | DVHPN2 ---
Progress Note - Dictate Date Seen: Dec 29, 2024 Medical Necessity Reason Pt with a Central, PICC or Fol: Yes The following are medically ne: Reed Catheter Reason for reed catheter: Strict I&O Subjective Mr. Perry is a 24 years old right-handed gentleman with a history of hypertension, pain syndrome, substance abuse, he was admitted to the [facility] on 12/17/2024 for new onset seizure activity. I have seen and examined the patient, discussed with his nurses. He is not doing well, sedated, intubated, not responsive to strong painful stimuli, pupils are small and responsive to lights. Fentanyl 150 mcg/hour, Versed 8 mg/hour, propofol 50 mcg/minute, FiO2: 100% Urinalysis, 12/17/2024: Unremarkable Urine drug screening, 12/17/2024: Benzo Valproic acid, 12/17/2024: 22.1 Plasma alcohol, 12/17/2024: <3 ABG, 12/18/2024: Respiratory acidosis, 12/20/2024: Acidosis, 12/22/2024: Hypoxia, 12/24/2024: Hypoxia, carbon dioxide retention, 12/25/2024: Hypoxia, carbon dioxide retention, 12/29/2024: Hypoxia, carbon dioxide retention WBC/HB/PLT/MCV, 12/20/2024: 8/12.4/233/90.4 CMP 12/18/2024: Unremarkable TBI/AST/ALT/AP, 12/20/2024: 0.7/44/45/143 EEG, 12/19/2019 10/26/24 13:15: Normal EEG, 12/23/2024: Moderately abnormal EEG Bronchoscopy 01/12/25: There were copious blood tinged secretions in the airways bilaterally Chest x-ray 12/18/2024: Endotracheal tube 0.7 cm above the rogers. Nasogastric tube in the proximal stomach Chest x-ray, 12/27/2024: 1. Stable mild multifocal bilateral pulmonary airspace disease, most notably at the lung bases. 2. Lines and tubes unchanged Chest x-ray, 12/29/2024: 1. Stable cardiomegaly, bilateral pleural effusions and moderate diffuse increased prominence of the pulmonary vasculature. 2. Right basilar pulmonary airspace disease. 3. Interval retraction of endotracheal tube as above. Remaining lines and tubes unchanged CT head, 12/17/2024: No evidence of acute intracranial abnormality. If symptoms persist, consider MRI for further evaluation MR head, 12/21/2024: No evidence of acute infarction, intracranial hemorrhage, mass effect or hydrocephalus. No evidence of mesial temporal sclerosis. Pansinusitis. Prominent bilateral cervical lymph nodes. This can be further evaluated with ultrasound vital signs Vital Sign Date Time Temp Pulse Resp B/P (MAP) Pulse Ox O2 Delivery O2 Flow Rate FiO2 12/29/24 09:42 61 12/29/24 09:41 100 12/29/24 09:40 20 91 Mechanical Ventilator+ 12/29/24 09:30 98.8 107/54 (71) 209.8 Total Intake and Output 12/28/24 12/28/24 12/29/24 15:00 23:00 07:00 Intake Total 863.319 ml 860.03 ml 1296.88 ml Output Total 0 ml 1950 ml 3950 ml Balance 863.319 ml -1089.97 ml -2653.12 ml medications Current Medications Medications Dose Ordered Sig/Rick Route Start Time Stop Time Status Last Admin Dose Admin Lorazepam 1 mg Q5MINP PRN IV 12/18/24 11:00 12/23/24 08:43 1 MG Midazolam HCl 50 ml @ 1 mls/hr Q24H IV 12/18/24 21:15 12/29/24 07:41 8 MLS/HR Diagnostic Test (Pha) 1 strip Q6HR 12/19/24 12:00 12/29/24 09:55 1 STRIP Insulin Human Regular FOLLOW SLIDING SCALE Q6HR SC 12/19/24 12:00 Dextrose 50 ml UD IV 12/19/24 10:00 12/22/24 23:25 50 ML Albuterol 2.5 mg Q6HR NEB 12/19/24 18:00 12/29/24 06:16 2.5 MG Ipratropium [place] 0.5 mg Q6HR NEB 12/19/24 18:00 12/29/24 06:16 0.5 MG Pantoprazole Sodium 40 mg DAILY IV 12/21/24 10:00 12/29/24 07:37 40 MG Enoxaparin Sodium 40 mg DAILY SC 12/21/24 10:00 12/29/24 07:38 40 MG Piperacillin Sod/ Tazobactam Sod 100 ml @ 25 mls/hr Q6HR IV 12/21/24 12:00 12/29/24 06:05 25 MLS/HR Polyethylene Glycol 17 gm DAILY PO 12/22/24 10:00 12/29/24 07:37 17 GM Docusate Sodium 100 mg BID GT 12/22/24 10:00 12/29/24 07:37 100 MG Acetaminophen 325 mg Q4HP PRN PO 12/22/24 08:15 12/28/24 06:08 325 MG Thiamine HCl 100 mg DAILY IV 12/24/24 10:00 12/29/24 07:37 100 MG Folic Acid 1 mg/ Dextrose 50.2 ml @ 200.8 mls/ hr DAILY INJ 12/24/24 10:00 12/29/24 07:38 200.8 MLS/HR Propofol 100 ml @ 4.311 mls/ hr [id number] IV 12/24/24 04:00 12/29/24 09:55 43.11 MLS/HR Sodium Chloride 10 ml QSHIFT@10,22 IV 12/24/24 22:00 12/29/24 07:38 10 ML Vancomycin HCl 0 ml @ 0 mls/hr UD IV 12/27/24 16:45 Enteral Nutritional Formula 1,000 ml 40ML/HR GT 12/27/24 16:45 12/28/24 02:01 1,000 ML Lactulose 15 ml DAILY PO 12/28/24 10:00 12/29/24 07:37 15 ML Fentanyl Citrate 250 ml @ 2.5 mls/hr Q24H IV 12/28/24 02:30 12/29/24 07:41 15 MLS/HR Levetiracetam 100 ml @ 400 mls/hr BID IV 12/28/24 10:00 12/29/24 07:37 400 MLS/HR Vancomycin HCl 200 ml @ 200 mls/hr DAILY@0100,0200,1300,1400 IV 12/28/24 13:00 12/29/24 01:33 200 MLS/HR objective The patient is well-nourished and well-developed with no distress. The patient is intubated MENTAL STATUS: Subjective CRANIAL NERVES: Pupils are equal, round and nonreactive, small. There are corneal reflexes and doll's eyes phenomenon. No signs of facial weakness. There are gagging or coughing reflexes SENSATION: Responses to pain stimuli. MOTOR: Normal tone in the upper and lower extremity. Normal muscle bulk. No fasciculations. No spontaneous extremity movements REFLEXES: Deep tendon reflexes are symmetrical. No pathological reflexes. CEREBELLAR/COORDINATION: Deferred GAIT/STATION: deferred laboratory and microbiology Laboratory Tests 12/29/24 01:55 Test 12/29/24 01:55 Range/Units Serum Glucose 80 74-106 mg/dL Problem List Come Metabolic encephalopathy Hypoxic encephalopathy Toxic encephalopathy ? Status epileptics New onset seizure, status epileptics Likely secondary to substance abuse Rule out epileptic seizure or other acute symptomatic seizure The activity witnessed on 12/23/2024 was not typical to seizure, likely myoclonus Substance abuse ? Depression Respiratory failure/hypoxia Assessment/Plan Monitoring Supportive treatment Telemetry Follow-up lab ICU care Stabilize vitals/pressor drip Respiratory support/vent management Ativan for seizure breakthrough Keppra 1000 mg IV b.i.d. , he may not need preventive seizure treatment Need history from him directly Consider tele psych consultation Re: The previous substance abuse later More recommendation per clinical course This medical document was created using an electronic medical record system with [employer] computerized dictation system. Although this document has been carefully reviewed, there may still be some phonetic and typographical errors. These areas are purely typographical due to imperfections of the software programs, and do not reflect any compromise in the patient's medical care. Prognosis guarded Dietary Evaluation Review Comments: 1) Continue TPN to meet at least 75% estimated needs 2) TF Vital High Protein @ 60ml/hr(goal) with current rate of propofol. TF at goal volume together with propofol provides 2471 kcal (100% eenrgy needs) & 126 gm protein (100% protein needs) 3) Monitor TPN tolerance, lab values, I/O, wt trend Expected Outcomes/Goals: To meet >75% estimated needs Fu 2-3 days Plan discussed with: BONNY Biggs MD Dec 29, 2024 10:06
[2024-12-29] MEDS: FUROSEMIDE 40 MG/4 ML VIAL IV ONE (14:53)
--- NOTE | 2024-12-29 17:11 | DVHPNRES ---
Progress Note Date Seen: Dec 29, 2024 Resident Creating Document: STUART SAGASTUME RESIDENT Medical Necessity Reason Pt with a Central, PICC or Fol: Yes The following are medically ne: Reed Catheter Reason for reed catheter: Strict I&O Subjective Review of Systems Patient is a 24-year-old male with past medical history of hypertension, chronic pain, substance abuse disorder, who was brought in due to new onset seizures. Patient is sedated and mechanically ventilated, history was obtained from patient's mother Ms. Sabillon via telephone. According to the patient's mother, patient has been abusing laughing gas heavily for some time, patient went to by laughing gas on Friday12/15/2024 and used it with his friend where according to the friend patient consumed most of the canister. Patient's mom took him to the rehab on 12/16/2024 where he had a seizure and was taken to the hospital and subsequently discharged back to the rehab facility. On patient again started having seizures which is when he was taken to the hospital again and was subsequently intubated. Patient reported saying he is prescribed Depakote but he has been noncompliant, serum valproic levels were below therapeutic range at 22.1 Past surgical history: Denies Smoking: Uses tobacco vaporizer pen heavily daily Alcohol: Remote history of heavy alcohol use Drugs: Mother is unsure, however, notes he may have history of cocaine abuse and MDMA abuse Previously patient was living in a rented home with a roommate, for the last 1 week was living with mother. Review of systems could not be completed due to patient being sedated and mechanically ventilated. 12/18- initially patient is stable on Keppra 500 b.i.d. but on 12/18 a.m. and into p.m. patient has multiple rapid response consecutively for breakthrough seizures. First rapid response headed by Dr. Grigsby where multiple rounds of Ativan and Keppra load 1 g was given.. Thereafter patient has multiple other episodes between page patient is able to come back to baseline following commands. Finally patient has another rapid response for seizure breakthrough had a proximally 340 p.m. where [facility] neurology is consulted to have expert advice to control seizures. Plan is made to complete Keppra load to maximum. Second-line plan is for valproate. However on a 3rd rapid response at approximately 5 p.m. patient goes on to seizure without returning to baseline for most 45 minutes. Although vitals were stable this is classified now status epilepticus and per guidance from tele neuro intubation needed with propofol. Patient is intubated approximately 530 p.m. there is moderate difficulty due to patient's morbid obesity. Procedure note for details, appreciate RT. Once intubation medications wearing off patient is very difficult to control seizures. Advancing dosing of propofol and Versed are required to maintain RASS of-3 to -4. Levophed is required given propofol causing hypotension. Right IJ cvc inserted also with difficulty due to short and obese neck, appreciate resident physicians. OG and urinary Reed placement w some difficulty, appreciate nursing. Placement of OG, right IJ CBC, ETT confirmed by chest x- ray. Patient care level advanced to ICU. We will maintain patient at high levels of sedation until neurology evaluation in house. 12/19-patient remains on multiple sedatives control seizures. Now in ICU room 103.. Patient is getting Versed 15, propofol 40, fentanyl 250, Levophed to. Maintaining RASS goal negative for. Patient is ventilated a.c. 20/550/45%/5.0. Vitals mostly stable. Heart rate is on the bradycardia side in 50s. Blood pressure stable with Levophed to maps low 70s. We will continue RASS-4 until neurology review tomorrow in house. Patient has been NPO for few days because of seizures, no bowel sounds today. Out of caution we will do TPN for today deferring enteral feeds until patient is on lower sedation. 12/21/24: Patient seen and examined at bedside. Noted to have some fevers and mild increase in leukocytosis, started on IV Zosyn. Mom and sister at bedside, details of illness explained, all questions answered and concerns addressed. 12/22/24: Patient seen and examined, plan to cpap trial tomorrow. 12/23/24: Overnight when Versed was decreased, patient was noted to have 3 seizures and then another seizure in the a.m., resumed Versed at 14 micrograms/hour. CPAP trial could not be completed. Added vancomycin. 12/24/2024: No further seizures. When down on fentanyl to 275, Versed 213, off of propofol right now. Patient is somewhat responsive and we will periodically move extremities. Chest x-ray showed slight improvement in bilateral effusions and stable airspace disease. Discontinued vancomycin. Creatinine kinase decreased to 1263. 12/25/24 -no significant changes. We will repeat a CK level. PICC line dislodged he will be replaced over guidewire. Electrolyte replacements.. We will maintain in deep sedation until week day for re-evaluation by Neurology for recurrent seizures. Vital signs are stable. Patient currently on fentanyl, Versed 8, propofol 30, fentanyl 200.. Patient is getting feeds Vital HP. Urine output dark brown. Ventilated a.c. 20/550/45%/5.0.. Patient is still having fevers and has required increasing amounts of oxygen saturation to maintain saturates. We will repeat blood cultures and sputum cultures, appreciate respiratory and obtaining that. 12/26/2024.-pulmonology plans for bronch today. ABG good. X-ray pending. We will continue sedatives given primary team's directives. Fentanyl 150 Versed 7 propofol 45. Clinimix,. Continuing IV antibiotics. Urine output adequate. Vitals stable no vasopressors map more than 75. On mechanical ventilation. A.c./20/5 50/50%/5.0.. We will continue sedation and sedation vacation trial tomorrow morning when primary returns. Update--after bronch we will try sedation vacation maximum 3-4 hours if he is doing well. Continue sedatives if any seizure activity is noted. We will try another sedation vacation tomorrow morning for primary to evaluate. 12/27/24: resumed vancomycin and tube feedings, started lactulose. increased PEEP to 8. went down on fentanyl to 150, versed 7 and prop 45. 12/28/2024: Continues to have low-grade fever, on FiO2 100% saturating in the early 90s, peak pressure 29 mmHg. Scheduled for repeat bronchoscopy today. 12/29/24: patient continues to have low-grade fevers, Tmax overnight 99.9. started on IV lasix 40mg daily. Detailed discussion held with patient's mother Ms. Sabillon, cousin and cousins at bedside. Possibility of trach was discussed owing to today being patients day 12 of intubation. Objective vital signs Vital Sign Date Time Temp Pulse Resp B/P (MAP) Pulse Ox O2 Delivery O2 Flow Rate FiO2 12/29/24 16:45 99.7 84 20 117/64 (81) 92 211.5 12/29/24 16:24 100 12/29/24 15:52 Mechanical Ventilator+ Total Intake and Output 12/28/24 12/28/24 12/29/24 14:59 22:59 06:59 Intake Total 650.479 ml 1054.62 ml 1296.88 ml Output Total 0 ml 1950 ml 3950 ml Balance 650.479 ml -895.38 ml -2653.12 ml medications Current Medications Medications Dose Ordered Sig/Rick Route Start Time Stop Time Status Last Admin Dose Admin Lorazepam 1 mg Q5MINP PRN IV 12/18/24 11:00 12/23/24 08:43 1 MG Midazolam HCl 50 ml @ 1 mls/hr Q24H IV 12/18/24 21:15 12/29/24 13:03 8 MLS/HR Diagnostic Test (Pha) 1 strip Q6HR 12/19/24 12:00 12/29/24 16:25 1 STRIP Insulin Human Regular FOLLOW SLIDING SCALE Q6HR SC 12/19/24 12:00 Dextrose 50 ml UD IV 12/19/24 10:00 12/22/24 23:25 50 ML Albuterol 2.5 mg Q6HR NEB 12/19/24 18:00 12/29/24 06:16 2.5 MG Ipratropium [place] 0.5 mg Q6HR NEB 12/19/24 18:00 12/29/24 06:16 0.5 MG Pantoprazole Sodium 40 mg DAILY IV 12/21/24 10:00 12/29/24 07:37 40 MG Enoxaparin Sodium 40 mg DAILY SC 12/21/24 10:00 12/29/24 07:38 40 MG Piperacillin Sod/ Tazobactam Sod 100 ml @ 25 mls/hr Q6HR IV 12/21/24 12:00 12/29/24 10:30 25 MLS/HR Polyethylene Glycol 17 gm DAILY PO 12/22/24 10:00 12/29/24 07:37 17 GM Docusate Sodium 100 mg BID GT 12/22/24 10:00 12/29/24 07:37 100 MG Acetaminophen 325 mg Q4HP PRN PO 12/22/24 08:15 12/28/24 06:08 325 MG Thiamine HCl 100 mg DAILY IV 12/24/24 10:00 12/29/24 07:37 100 MG Folic Acid 1 mg/ Dextrose 50.2 ml @ 200.8 mls/ hr DAILY INJ 12/24/24 10:00 12/29/24 07:38 200.8 MLS/HR Propofol 100 ml @ 4.311 mls/ hr [id number] IV 12/24/24 04:00 12/29/24 14:54 43.11 MLS/HR Sodium Chloride 10 ml QSHIFT@10,22 IV 12/24/24 22:00 12/29/24 07:38 10 ML Vancomycin HCl 0 ml @ 0 mls/hr UD IV 12/27/24 16:45 Enteral Nutritional Formula 1,000 ml 40ML/HR GT 12/27/24 16:45 12/28/24 02:01 1,000 ML Lactulose 15 ml DAILY PO 12/28/24 10:00 12/29/24 07:37 15 ML Fentanyl Citrate 250 ml @ 2.5 mls/hr Q24H IV 12/28/24 02:30 12/29/24 07:41 15 MLS/HR Levetiracetam 100 ml @ 400 mls/hr BID IV 12/28/24 10:00 12/29/24 07:37 400 MLS/HR Vancomycin HCl 200 ml @ 200 mls/hr DAILY@0100,0200,1300,1400 IV 12/28/24 13:00 12/29/24 12:23 200 MLS/HR Furosemide 40 mg DAILY IV 12/30/24 10:00 Examination General Appearance: Sedated and mechanically ventilated obese adult. Constricted pupils. Pulmonary/Respiratory: Coarse bilateral breath sounds Cardiovascular/Chest: Tachycardia Peripheral Pulses: 2+ Pedal (R). 2+ Pedal (L) Abdominal Exam: Normal bowel sounds. Soft. normal abdomen, no visible veins, Nontender. No hepatospenomegaly. No masses Lower extremities: Negative lower extremity edema Skin Exam: Normal inspection. Normal color. Dry. warm laboratory and microbiology Laboratory Tests 12/29/24 01:55 Test 12/29/24 01:55 Range/Units Serum Glucose 80 74-106 mg/dL Microbiology Date/Time Source Procedure Growth Status 12/26/24 11:46 Bronchial Washings Gram Stain - Final Complete 12/26/24 11:46 Respiratory Culture - Final Staphylococcus aureus Complete 12/25/24 15:20 Catheter Site Aerobic Culture - Final Staphylococcus epidermidis Complete 12/25/24 10:17 Blood Blood Culture - Preliminary NO GROWTH AFTER 72 HOURS OF INCUBATION. Resulted 12/20/24 17:00 Voided Urine Urine Culture - Final Complete Labs and/or images reviewed: Labs reviewed by me, Image(s) reviewed by me Problem List/Assessment/Plan Problem List/Assessment/Plan Neurology # acute likely toxic versus metabolic encephalopathy # new onset? Breakthrough grand mal seizures # medication nonadherence # possible alcohol withdrawal, unable to calculate CIWA # Sedated - Versed 8 - fentanyl 150 - proprofol 50 - serum valproic acid levels below normal 22.1 - IV levetiracetam 1500 mg b.i.d. - IV lorazepam as needed for seizures - head CT: No evidence of acute intracranial abnormality. If symptoms persist, consider MRI for further evaluation. - neurology on board - brain MRI: No evidence of acute infarction, intracranial hemorrhage, mass effect or hydrocephalus. No effects of mesial temporal sclerosis. Pansinusitis. Prominent bilateral cervical lymph nodes. - last seizure 12/23/2024 - brain EEG largely unremarkable - IV banana bag x2, IV thiamine, IV folic acid Cardiovascular # essential hypertension # sepsis secondary to aspiration pneumonia - stopped IV NS at 60 cc/hour Respiratory # Acute hypoxic respiratory failure secondary to intractable seizures # probable aspiration pneumonia, cultures growing MSSA # Ventilator # pulmonary edema # b/l pleural effusion - intubated 12/18/2024 - on [facility] vent : VCAC Mode RR 20 TV 550ml, PEEP Of 8 and FiO2 of 90% - ipratropium and albuterol med nebs - CXR: Hypoinflated lungs with bibasilar atelectasis - started on IV Zosyn 12/21/2024 - started IV vancomycin per pharmacy on 12/23/2024, discontinued vancomycin on 12/24/2024 - resumed vancomycin on 12/27/24 - CXR 12/29/24: Stable cardiomegaly, bilateral pleural effusions and moderate diffuse increased prominence of the pulmonary vasculature. Right basilar pulmonary airspace disease. - IV lasix 40mg daily GI # transaminitis # Peptic ulcer prophylaxis # vitamin B12 deficiency # constipation, likely slow transit -Pantoprazole 40 mg IV daily - negative hepatitis-B and hepatitis-C - repleted with 1000 mcg B12 - lactulose daily # Reed catheter placed on 12/18/2024 Nephrology # hypernatremia, now improved # hypokalemia, now improved - serum creatinine 2159 on 12/23/2024, 1263 on 12/24/2024 - monitor Infectious disease # aspiration pneumonia # sepsis due to above # right IJ catheter tip (placed on 12/18/2024, removed on 12/24/2024) culture growing staph epidermidis - pancultures - IV Zosyn - IV vancomycin - Tylenol as needed for fever - s/p bronchoscopy x 2 Hem/onc # microcytic anemia, mild - monitor Psychiatry # substance use disorder - we will consider Psychiatry consult once patient is extubated DVT prophylaxis - Lovenox 40 mg subcutaneous daily Nutrition - tube feedings started on 12/21/2024 Lines Right PICC placed on 12/24/24 Left arm 20 gauge placed on 12/17/2024 Drips - Versed 8 - fentanyl 150 - propofol 50 Intubated on 12/18/2024 Bronchoscopy on 12/26/24 Repeat bronchoscopy on 12/28/2024 on [facility] vent : VCAC Mode RR 20 TV 550ml, PEEP Of 8 and FiO2 of 100% Critical care time 86 minutes excluding procedure. Code status discussed greater than 20 minutes: Full CODE STATUS. Plan discussed with Dr. Iqbal Detailed discussion held with patient's mother Ms. Sabillon, cousin and cousins at bedside. Possibility of trach was discussed owing to today being patients day 12 of intubation. Plan discussed with: Other (mother, RN) My Orders My Orders Orders - STUART SAGASTUME RESIDENT Procedure Category Date Status Time Chest Portable XY 12/29/24 Resulted 04:00 Abg W/ Co-Ox RT 12/29/24 Logged 07:00 Creatinine LAB 12/30/24 Verified 04:00 Complete Blood Count LAB 12/30/24 Verified 04:00 Comprehensive LAB 12/30/24 Verified Metabolic Panel 04:00 Chest Portable XY 12/30/24 Logged 04:00 Abg W/ Co-Ox RT 12/30/24 Logged 04:00 Dietary Evaluation Review Comments: 1) Continue TPN to meet at least 75% estimated needs 2) TF Vital High Protein @ 60ml/hr(goal) with current rate of propofol. TF at goal volume together with propofol provides 2471 kcal (100% eenrgy needs) & 126 gm protein (100% protein needs) 3) Monitor TPN tolerance, lab values, I/O, wt trend Expected Outcomes/Goals: To meet >75% estimated needs Fu 2-3 days Date of Service: Dec 29, 2024 Billing Provider: ANTHONY IQBAL MD Common Visit Codes: 15617-[id number] CARE 30-74 MIN, [id number] CARE-EACH +30MIN STUART SAGASTUME Dec 29, 2024 17:10 ANTHONY IQBAL MD Dec 30, 2024 10:51
[2024-12-29 21:25] LABS: Base Excess 1.4 mmol/L (-2.0-3.0)
[2024-12-30] VITALS (115 sets, daily range): BP systolic 99–138; BP diastolic 41–71; PULSE 60–96; RESP 17–28; TEMP 98.4–100.4; O2SAT 89–100
[2024-12-30 04:06] LABS: Hematocrit 32.6 % (41.0-53.0); Hemoglobin 11.0 g/dL (13.5-17.5); Mean Corpuscular Hemoglobin 30.1 pg (28.0-32.0); Mean Corpuscular Volume 89.5 fL (80.0-100.0)
[2024-12-30 04:19] LABS: Albumin 4.3 g/dL (3.2-4.8); Anion Gap 10 (5-15); BUN/Creatinine Ratio 25.0 (10.0-20.0); Blood Urea Nitrogen 13 mg/dL (9-23); Carbon Dioxide 29 mmol/L (20-31); Chloride 100 mmol/L (98-107); Glucose 81 mg/dL (74-106); Sodium 139 mmol/L (136-145); Total Protein 7.5 g/dL (5.7-8.2)
[2024-12-30 04:20] LABS: Bilirubin, Total 0.4 mg/dL (0.2-1.0)
[2024-12-30 04:24] LABS: Alanine Aminotransferase 54 U/L (7-40); Alkaline Phosphatase 154 U/L (46-116); Calcium 10.4 mg/dL (8.7-10.4); Potassium 3.5 mmol/L (3.5-5.1)
[2024-12-30 04:52] LABS: Total Cells Counted 100.0 (100)
--- NOTE | 2024-12-30 05:41 | DVH ---
CHEST RADIOGRAPH Indication: pna Technique: Single frontal view of the chest was obtained Comparison: XY CHEST PORTABLE on DOS: 12/29/24 FINDINGS: Lines and Tubes: The endotracheal tube terminates 3.8 cm above the rogers. Enteric tube terminates in the stomach. Lungs: Hazy bilateral opacities similar to prior study. Prominence of the interstitium. Pleura: Bilateral pleural effusions. No pneumothorax. Cardiomediastinal contours: Stable. Bones: No acute osseous abnormality. IMPRESSION: 1. No significant interval change in pulmonary edema and bilateral pleural effusions.
[2024-12-30 06:37] LABS: Base Excess 6.0 mmol/L (-2.0-3.0)
[2024-12-30] MEDS: FUROSEMIDE 40 MG/4 ML VIAL IV SCH (07:29)
--- NOTE | 2024-12-30 10:41 | DVHPN2 ---
Progress Note - Dictate Date Seen: Dec 30, 2024 Medical Necessity Reason Pt with a Central, PICC or Fol: Yes The following are medically ne: Reed Catheter Reason for reed catheter: Strict I&O Subjective Mr. Perry is a 24 years old right-handed gentleman with a history of hypertension, pain syndrome, substance abuse, he was admitted to the [facility] on 12/17/2024 for new onset seizure activity. I have seen and examined the patient, discussed with his nurses. No obvious improvement per my observation, nonresponsive to painful stimuli Chest x-ray reviewed Fentanyl 200 mcg/hour, Versed 8 mg/hour, propofol 50 mcg/minute, FiO2: 100% Urinalysis, 12/17/2024: Unremarkable Urine drug screening, 12/17/2024: Benzo Valproic acid, 12/17/2024: 22.1 Plasma alcohol, 12/17/2024: <3 ABG, 12/18/2024: Respiratory acidosis, 12/20/2024: Acidosis, 12/22/2024: Hypoxia, 12/24/2024: Hypoxia, carbon dioxide retention, 12/25/2024: Hypoxia, carbon dioxide retention, 12/29/2024: Hypoxia, carbon dioxide retention WBC/HB/PLT/MCV, 12/20/2024: 8/12.4/233/90.4 CMP 12/18/2024: Unremarkable TBI/AST/ALT/AP, 12/20/2024: 0.7/44/45/143 EEG, 12/19/2019 10/26/24 13:15: Normal EEG, 12/23/2024: Moderately abnormal EEG Bronchoscopy 01/12/25: There were copious blood tinged secretions in the airways bilaterally Chest x-ray 12/18/2024: Endotracheal tube 0.7 cm above the rogers. Nasogastric tube in the proximal stomach Chest x-ray, 12/27/2024: 1. Stable mild multifocal bilateral pulmonary airspace disease, most notably at the lung bases. 2. Lines and tubes unchanged Chest x-ray, 12/29/2024: 1. Stable cardiomegaly, bilateral pleural effusions and moderate diffuse increased prominence of the pulmonary vasculature. 2. Right basilar pulmonary airspace disease. 3. Interval retraction of endotracheal tube as above. Remaining lines and tubes unchanged CT head, 12/17/2024: No evidence of acute intracranial abnormality. If symptoms persist, consider MRI for further evaluation MR head, 12/21/2024: No evidence of acute infarction, intracranial hemorrhage, mass effect or hydrocephalus. No evidence of mesial temporal sclerosis. Pansinusitis. Prominent bilateral cervical lymph nodes. This can be further evaluated with ultrasound vital signs Vital Sign Date Time Temp Pulse Resp B/P (MAP) Pulse Ox O2 Delivery O2 Flow Rate FiO2 12/30/24 09:45 99.1 64 20 103/48 (66) 92 210.4 12/30/24 09:36 100 12/30/24 09:35 Mechanical Ventilator+ Total Intake and Output 12/29/24 12/29/24 12/30/24 15:00 23:00 07:00 Intake Total 1022.86 ml 1084.88 ml 1243.88 ml Output Total 3000 ml 1350 ml Balance 1022.86 ml -1915.12 ml -106.12 ml medications Current Medications Medications Dose Ordered Sig/Rick Route Start Time Stop Time Status Last Admin Dose Admin Lorazepam 1 mg Q5MINP PRN IV 12/18/24 11:00 12/23/24 08:43 1 MG Midazolam HCl 50 ml @ 1 mls/hr Q24H IV 12/18/24 21:15 12/30/24 07:28 8 MLS/HR Diagnostic Test (Pha) 1 strip Q6HR 12/19/24 12:00 12/30/24 10:12 1 STRIP Insulin Human Regular FOLLOW SLIDING SCALE Q6HR SC 12/19/24 12:00 Dextrose 50 ml UD IV 12/19/24 10:00 12/22/24 23:25 50 ML Albuterol 2.5 mg Q6HR NEB 12/19/24 18:00 12/30/24 06:06 2.5 MG Ipratropium [place] 0.5 mg Q6HR NEB 12/19/24 18:00 12/30/24 06:06 0.5 MG Pantoprazole Sodium 40 mg DAILY IV 12/21/24 10:00 12/30/24 07:29 40 MG Enoxaparin Sodium 40 mg DAILY SC 12/21/24 10:00 12/30/24 07:30 40 MG Piperacillin Sod/ Tazobactam Sod 100 ml @ 25 mls/hr Q6HR IV 12/21/24 12:00 12/30/24 10:11 25 MLS/HR Polyethylene Glycol 17 gm DAILY PO 12/22/24 10:00 12/30/24 07:29 17 GM Docusate Sodium 100 mg BID GT 12/22/24 10:00 12/30/24 07:29 100 MG Acetaminophen 325 mg Q4HP PRN PO 12/22/24 08:15 12/30/24 08:14 325 MG Thiamine HCl 100 mg DAILY IV 12/24/24 10:00 12/30/24 07:29 100 MG Folic Acid 1 mg/ Dextrose 50.2 ml @ 200.8 mls/ hr DAILY INJ 12/24/24 10:00 12/30/24 07:31 200.8 MLS/HR Propofol 100 ml @ 4.311 mls/ hr [id number] IV 12/24/24 04:00 12/30/24 10:13 43.11 MLS/HR Sodium Chloride 10 ml QSHIFT@10,22 IV 12/24/24 22:00 12/30/24 07:30 10 ML Vancomycin HCl 0 ml @ 0 mls/hr UD IV 12/27/24 16:45 Enteral Nutritional Formula 1,000 ml 40ML/HR GT 12/27/24 16:45 12/28/24 02:01 1,000 ML Lactulose 15 ml DAILY PO 12/28/24 10:00 12/30/24 07:29 15 ML Fentanyl Citrate 250 ml @ 2.5 mls/hr Q24H IV 12/28/24 02:30 12/29/24 23:34 15 MLS/HR Levetiracetam 100 ml @ 400 mls/hr BID IV 12/28/24 10:00 12/30/24 07:29 400 MLS/HR Vancomycin HCl 200 ml @ 200 mls/hr DAILY@0100,0200,1300,1400 IV 12/28/24 13:00 12/30/24 02:56 200 MLS/HR Furosemide 40 mg DAILY IV 12/30/24 10:00 12/30/24 07:29 40 MG objective The patient is well-nourished and well-developed with no distress. The patient is intubated MENTAL STATUS: Subjective CRANIAL NERVES: Pupils are equal, round and nonreactive, small. There are corneal reflexes and doll's eyes phenomenon. No signs of facial weakness. There are gagging or coughing reflexes SENSATION: Responses to pain stimuli. MOTOR: Normal tone in the upper and lower extremity. Normal muscle bulk. No fasciculations. No spontaneous extremity movements REFLEXES: Deep tendon reflexes are symmetrical. No pathological reflexes. CEREBELLAR/COORDINATION: Deferred GAIT/STATION: deferred laboratory and microbiology Laboratory Tests 12/30/24 03:30 Test 12/30/24 03:30 Range/Units Serum Glucose 81 74-106 mg/dL Problem List Come Metabolic encephalopathy Hypoxic encephalopathy Toxic encephalopathy ? Status epileptics New onset seizure, status epileptics Likely secondary to substance abuse Rule out epileptic seizure or other acute symptomatic seizure The activity witnessed on 12/23/2024 was not typical to seizure, likely myoclonus Substance abuse ? Depression Respiratory failure/hypoxia Pneumonia Assessment/Plan Monitoring Supportive treatment Telemetry Follow-up lab ICU care Stabilize vitals/pressor drip Respiratory support/vent management Ativan for seizure breakthrough Reduce the Keppra to 750 mg IV b.i.d. , he may not need preventive seizure treatment Need history from him directly Consider tele psych consultation Re: The previous substance abuse later More recommendation per clinical course This medical document was created using an electronic medical record system with [employer] computerized dictation system. Although this document has been carefully reviewed, there may still be some phonetic and typographical errors. These areas are purely typographical due to imperfections of the software programs, and do not reflect any compromise in the patient's medical care. Prognosis guarded Dietary Evaluation Review Comments: 1) Continue TPN to meet at least 75% estimated needs 2) TF Vital High Protein @ 60ml/hr(goal) with current rate of propofol. TF at goal volume together with propofol provides 2471 kcal (100% eenrgy needs) & 126 gm protein (100% protein needs) 3) Monitor TPN tolerance, lab values, I/O, wt trend Expected Outcomes/Goals: To meet >75% estimated needs Fu 2-3 days Plan discussed with: Other BONNY PEREZ MD Dec 30, 2024 10:41
[2024-12-30] MEDS: ENOXAPARIN SOD 100 MG/1 ML SYRINGE SC ONE (12:14)
--- NOTE | 2024-12-30 13:56 | DVHPNRES ---
Progress Note Date Seen: Dec 30, 2024 Resident Creating Document: STUART SAGASTUME RESIDENT Medical Necessity Reason Pt with a Central, PICC or Fol: Yes The following are medically ne: Reed Catheter Reason for reed catheter: Strict I&O Subjective Review of Systems Patient is a 24-year-old male with past medical history of hypertension, chronic pain, substance abuse disorder, who was brought in due to new onset seizures. Patient is sedated and mechanically ventilated, history was obtained from patient's mother Ms. Sabillon via telephone. According to the patient's mother, patient has been abusing laughing gas heavily for some time, patient went to by laughing gas on Friday12/15/2024 and used it with his friend where according to the friend patient consumed most of the canister. Patient's mom took him to the rehab on 12/16/2024 where he had a seizure and was taken to the hospital and subsequently discharged back to the rehab facility. On patient again started having seizures which is when he was taken to the hospital again and was subsequently intubated. Patient reported saying he is prescribed Depakote but he has been noncompliant, serum valproic levels were below therapeutic range at 22.1 Past surgical history: Denies Smoking: Uses tobacco vaporizer pen heavily daily Alcohol: Remote history of heavy alcohol use Drugs: Mother is unsure, however, notes he may have history of cocaine abuse and MDMA abuse Previously patient was living in a rented home with a roommate, for the last 1 week was living with mother. Review of systems could not be completed due to patient being sedated and mechanically ventilated. 12/18- initially patient is stable on Keppra 500 b.i.d. but on 12/18 a.m. and into p.m. patient has multiple rapid response consecutively for breakthrough seizures. First rapid response headed by Dr. Grigsby where multiple rounds of Ativan and Keppra load 1 g was given.. Thereafter patient has multiple other episodes between page patient is able to come back to baseline following commands. Finally patient has another rapid response for seizure breakthrough had a proximally 340 p.m. where [facility] neurology is consulted to have expert advice to control seizures. Plan is made to complete Keppra load to maximum. Second-line plan is for valproate. However on a 3rd rapid response at approximately 5 p.m. patient goes on to seizure without returning to baseline for most 45 minutes. Although vitals were stable this is classified now status epilepticus and per guidance from tele neuro intubation needed with propofol. Patient is intubated approximately 530 p.m. there is moderate difficulty due to patient's morbid obesity. Procedure note for details, appreciate RT. Once intubation medications wearing off patient is very difficult to control seizures. Advancing dosing of propofol and Versed are required to maintain RASS of-3 to -4. Levophed is required given propofol causing hypotension. Right IJ cvc inserted also with difficulty due to short and obese neck, appreciate resident physicians. OG and urinary Reed placement w some difficulty, appreciate nursing. Placement of OG, right IJ CBC, ETT confirmed by chest x- ray. Patient care level advanced to ICU. We will maintain patient at high levels of sedation until neurology evaluation in house. 12/19-patient remains on multiple sedatives control seizures. Now in ICU room 103.. Patient is getting Versed 15, propofol 40, fentanyl 250, Levophed to. Maintaining RASS goal negative for. Patient is ventilated a.c. 20/550/45%/5.0. Vitals mostly stable. Heart rate is on the bradycardia side in 50s. Blood pressure stable with Levophed to maps low 70s. We will continue RASS-4 until neurology review tomorrow in house. Patient has been NPO for few days because of seizures, no bowel sounds today. Out of caution we will do TPN for today deferring enteral feeds until patient is on lower sedation. 12/21/24: Patient seen and examined at bedside. Noted to have some fevers and mild increase in leukocytosis, started on IV Zosyn. Mom and sister at bedside, details of illness explained, all questions answered and concerns addressed. 12/22/24: Patient seen and examined, plan to cpap trial tomorrow. 12/23/24: Overnight when Versed was decreased, patient was noted to have 3 seizures and then another seizure in the a.m., resumed Versed at 14 micrograms/hour. CPAP trial could not be completed. Added vancomycin. 12/24/2024: No further seizures. When down on fentanyl to 275, Versed 213, off of propofol right now. Patient is somewhat responsive and we will periodically move extremities. Chest x-ray showed slight improvement in bilateral effusions and stable airspace disease. Discontinued vancomycin. Creatinine kinase decreased to 1263. 12/25/24 -no significant changes. We will repeat a CK level. PICC line dislodged he will be replaced over guidewire. Electrolyte replacements.. We will maintain in deep sedation until week day for re-evaluation by Neurology for recurrent seizures. Vital signs are stable. Patient currently on fentanyl, Versed 8, propofol 30, fentanyl 200.. Patient is getting feeds Vital HP. Urine output dark brown. Ventilated a.c. 20/550/45%/5.0.. Patient is still having fevers and has required increasing amounts of oxygen saturation to maintain saturates. We will repeat blood cultures and sputum cultures, appreciate respiratory and obtaining that. 12/26/2024.-pulmonology plans for bronch today. ABG good. X-ray pending. We will continue sedatives given primary team's directives. Fentanyl 150 Versed 7 propofol 45. Clinimix,. Continuing IV antibiotics. Urine output adequate. Vitals stable no vasopressors map more than 75. On mechanical ventilation. A.c./20/5 50/50%/5.0.. We will continue sedation and sedation vacation trial tomorrow morning when primary returns. Update--after bronch we will try sedation vacation maximum 3-4 hours if he is doing well. Continue sedatives if any seizure activity is noted. We will try another sedation vacation tomorrow morning for primary to evaluate. 12/27/24: resumed vancomycin and tube feedings, started lactulose. increased PEEP to 8. went down on fentanyl to 150, versed 7 and prop 45. 12/28/2024: Continues to have low-grade fever, on FiO2 100% saturating in the early 90s, peak pressure 29 mmHg. Scheduled for repeat bronchoscopy today. 12/29/24: patient continues to have low-grade fevers, Tmax overnight 99.9. started on IV lasix 40mg daily. Detailed discussion held with patient's mother Ms. Sabillon, cousin and cousins at bedside. Possibility of trach was discussed owing to today being patients day 12 of intubation. 12/30/2024: Chest x-ray showed no change in pulmonary edema or bilateral pleural effusion, ordered CT angiography chest, however, patient unstable for transfer as FiO2 100%, started patient on therapeutic Lovenox. Objective vital signs Vital Sign Date Time Temp Pulse Resp B/P (MAP) Pulse Ox O2 Delivery O2 Flow Rate FiO2 12/30/24 13:15 98.4 70 20 105/51 (69) 91 209.1 12/30/24 11:53 Mechanical Ventilator+ 100 100 Total Intake and Output 12/29/24 12/29/24 12/30/24 15:00 23:00 07:00 Intake Total 1022.86 ml 1084.88 ml 1243.88 ml Output Total 3000 ml 1350 ml Balance 1022.86 ml -1915.12 ml -106.12 ml medications Current Medications Medications Dose Ordered Sig/Rick Route Start Time Stop Time Status Last Admin Dose Admin Lorazepam 1 mg Q5MINP PRN IV 12/18/24 11:00 12/23/24 08:43 1 MG Midazolam HCl 50 ml @ 1 mls/hr Q24H IV 12/18/24 21:15 12/30/24 07:28 8 MLS/HR Diagnostic Test (Pha) 1 strip Q6HR 12/19/24 12:00 12/30/24 10:12 1 STRIP Insulin Human Regular FOLLOW SLIDING SCALE Q6HR SC 12/19/24 12:00 Dextrose 50 ml UD IV 12/19/24 10:00 12/22/24 23:25 50 ML Albuterol 2.5 mg Q6HR NEB 12/19/24 18:00 12/30/24 11:30 2.5 MG Ipratropium [place] 0.5 mg Q6HR NEB 12/19/24 18:00 12/30/24 11:30 0.5 MG Pantoprazole Sodium 40 mg DAILY IV 12/21/24 10:00 12/30/24 07:29 40 MG Piperacillin Sod/ Tazobactam Sod 100 ml @ 25 mls/hr Q6HR IV 12/21/24 12:00 12/30/24 10:11 25 MLS/HR Polyethylene Glycol 17 gm DAILY PO 12/22/24 10:00 12/30/24 07:29 17 GM Docusate Sodium 100 mg BID GT 12/22/24 10:00 12/30/24 07:29 100 MG Acetaminophen 325 mg Q4HP PRN PO 12/22/24 08:15 12/30/24 08:14 325 MG Thiamine HCl 100 mg DAILY IV 12/24/24 10:00 12/30/24 07:29 100 MG Folic Acid 1 mg/ Dextrose 50.2 ml @ 200.8 mls/ hr DAILY INJ 12/24/24 10:00 12/30/24 07:31 200.8 MLS/HR Propofol 100 ml @ 4.311 mls/ hr [id number] IV 12/24/24 04:00 12/30/24 12:14 43.11 MLS/HR Sodium Chloride 10 ml QSHIFT@10,22 IV 12/24/24 22:00 12/30/24 07:30 10 ML Vancomycin HCl 0 ml @ 0 mls/hr UD IV 12/27/24 16:45 Enteral Nutritional Formula 1,000 ml 40ML/HR GT 12/27/24 16:45 12/28/24 02:01 1,000 ML Lactulose 15 ml DAILY PO 12/28/24 10:00 12/30/24 07:29 15 ML Fentanyl Citrate 250 ml @ 2.5 mls/hr Q24H IV 12/28/24 02:30 12/30/24 12:14 20 MLS/HR Vancomycin HCl 200 ml @ 200 mls/hr DAILY@0100,0200,1300,1400 IV 12/28/24 13:00 12/30/24 13:00 200 MLS/HR Furosemide 40 mg DAILY IV 12/30/24 10:00 12/30/24 07:29 40 MG Patient Own Medication 750 mg BID IV 12/30/24 22:00 UNV Enoxaparin Sodium 130 mg Q12HR SC 12/30/24 22:00 Vancomycin HCl 200 ml @ 200 mls/hr Q6H IV 12/30/24 16:00 UNV Examination General Appearance: Sedated and mechanically ventilated obese adult. Constricted pupils. Pulmonary/Respiratory: Coarse bilateral breath sounds Cardiovascular/Chest: Tachycardia Peripheral Pulses: 2+ Pedal (R). 2+ Pedal (L) Abdominal Exam: Normal bowel sounds. Soft. normal abdomen, no visible veins, Nontender. No hepatospenomegaly. No masses Lower extremities: Negative lower extremity edema Skin Exam: Normal inspection. Normal color. Dry. warm laboratory and microbiology Laboratory Tests 12/30/24 03:30 Test 12/30/24 03:30 Range/Units Serum Glucose 81 74-106 mg/dL Microbiology Date/Time Source Procedure Growth Status 12/26/24 11:46 Bronchial Washings Gram Stain - Final Complete 12/26/24 11:46 Respiratory Culture - Final Staphylococcus aureus Complete 12/25/24 15:20 Catheter Site Aerobic Culture - Final Staphylococcus epidermidis Complete 12/25/24 10:17 Blood Blood Culture - Final NO GROWTH AFTER 5 DAYS OF INCUBATION. Complete 12/20/24 17:00 Voided Urine Urine Culture - Final Complete Labs and/or images reviewed: Labs reviewed by me, Image(s) reviewed by me Problem List/Assessment/Plan Problem List/Assessment/Plan Neurology # acute likely toxic versus metabolic encephalopathy # new onset? Breakthrough grand mal seizures # medication nonadherence # possible alcohol withdrawal, unable to calculate CIWA # Sedated - Versed 8 - fentanyl 150 - proprofol 50 - serum valproic acid levels below normal 22.1 - IV levetiracetam 1500 mg b.i.d. - IV lorazepam as needed for seizures - head CT: No evidence of acute intracranial abnormality. If symptoms persist, consider MRI for further evaluation. - neurology on board - brain MRI: No evidence of acute infarction, intracranial hemorrhage, mass effect or hydrocephalus. No effects of mesial temporal sclerosis. Pansinusitis. Prominent bilateral cervical lymph nodes. - last seizure 12/23/2024 - brain EEG largely unremarkable - IV banana bag x2, IV thiamine, IV folic acid Cardiovascular # essential hypertension # sepsis secondary to aspiration pneumonia - stopped IV NS at 60 cc/hour Respiratory # Acute hypoxic respiratory failure secondary to intractable seizures # probable aspiration pneumonia, cultures growing MSSA # Ventilator # pulmonary edema # b/l pleural effusion - intubated 12/18/2024 - on [facility] vent : VCAC Mode RR 20 TV 550ml, PEEP Of 10 and FiO2 of 90% - ipratropium and albuterol med nebs - CXR: Hypoinflated lungs with bibasilar atelectasis - started on IV Zosyn 12/21/2024 - started IV vancomycin per pharmacy on 12/23/2024, discontinued vancomycin on 12/24/2024 - resumed vancomycin on 12/27/24 - CXR 12/29/24: Stable cardiomegaly, bilateral pleural effusions and moderate diffuse increased prominence of the pulmonary vasculature. Right basilar pulmonary airspace disease. - IV lasix 40mg daily - ordered CT angiography chest - therapeutic Lovenox GI # transaminitis # Peptic ulcer prophylaxis # vitamin B12 deficiency # constipation, likely slow transit -Pantoprazole 40 mg IV daily - negative hepatitis-B and hepatitis-C - repleted with 1000 mcg B12 - lactulose daily # Reed catheter placed on 12/18/2024 Nephrology # hypernatremia, now improved # hypokalemia, now improved - serum creatinine 2159 on 12/23/2024, 1263 on 12/24/2024 - monitor Infectious disease # aspiration pneumonia # sepsis due to above # right IJ catheter tip (placed on 12/18/2024, removed on 12/24/2024) culture growing staph epidermidis - pancultures - IV Zosyn - IV vancomycin - Tylenol as needed for fever - s/p bronchoscopy x 2 Hem/onc # microcytic anemia, mild - monitor Psychiatry # substance use disorder - we will consider Psychiatry consult once patient is extubated DVT prophylaxis - Lovenox 40 mg subcutaneous daily Nutrition - tube feedings started on 12/21/2024 Lines Right PICC placed on 12/24/24 Left arm 20 gauge placed on 12/17/2024 Drips - Versed 8 - fentanyl 150 - propofol 50 Intubated on 12/18/2024 Bronchoscopy on 12/26/24 Repeat bronchoscopy on 12/28/2024 on [facility] vent : VCAC Mode RR 20 TV 550ml, PEEP Of 8 and FiO2 of 100% Critical care time 86 minutes excluding procedure. Code status discussed greater than 20 minutes: Full CODE STATUS. Plan discussed with Dr. Iqbal Detailed discussion held with patient's mother Ms. Sabillon, cousin and cousins at bedside. Possibility of trach was discussed owing to today being patients day 12 of intubation. Plan discussed with: Other (Mother, RN) My Orders My Orders Orders - STUART SAGASTUME RESIDENT Procedure Category Date Status Time Chest Portable XY 12/30/24 Resulted 04:00 Abg W/ Co-Ox RT 12/30/24 Logged 04:00 Vancomycin Per JADIEL 12/30/24 In Process Pharmacy Protoc 16:00 Creatinine LAB 12/31/24 Verified 04:00 Vancomycin,Trough LAB 12/31/24 Verified 09:00 Vancomycin 1gm/200ml PHA 12/30/24 Logged Pm 16:00 Vancomycin Per JADIEL 12/31/24 In Process Pharmacy Protoc 10:00 Complete Blood Count LAB 12/31/24 Verified 04:00 Comprehensive LAB 12/31/24 Verified Metabolic Panel 04:00 Abg W/ Co-Ox RT 12/31/24 Logged 04:00 Chest Portable XY 12/31/24 Logged 04:00 Kub Abdomen Single XY 12/31/24 Logged View 04:00 Dietary Evaluation Review Comments: 1) Continue TPN to meet at least 75% estimated needs 2) TF Vital High Protein @ 60ml/hr(goal) with current rate of propofol. TF at goal volume together with propofol provides 2471 kcal (100% eenrgy needs) & 126 gm protein (100% protein needs) 3) Monitor TPN tolerance, lab values, I/O, wt trend Expected Outcomes/Goals: To meet >75% estimated needs Fu 2-3 days Date of Service: Dec 30, 2024 Billing Provider: ANTHONY IQBAL MD Common Visit Codes: 44449-[id number] CARE 30-74 MIN, [id number] CARE-EACH +30MIN STUART SAGASTUME RESIDENT Dec 30, 2024 13:56 ANTHONY IQBAL MD Jan 01, 2025 10:55
[2024-12-30] MEDS ORDERED: VANCOMYCIN 1GM/200ML PM 200 ML IV SCH (16:00)
[2024-12-30] MEDS: VANCOMYCIN 1GM/200ML PM 200 ML IV SCH (20:04)
[2024-12-30 21:41] LABS: COVID19 ANTIGEN SOFIA FIA NEGATIVE (NEGATIVE)
[2024-12-30] MEDS: ENOXAPARIN SOD 150 MG/1 ML SYRINGE SC SCH (21:43)
[2024-12-30] MEDS ORDERED: PATIENTS OWN MEDICATION (keppra 750 MG) IV SCH (22:00)
[2024-12-31] VITALS (113 sets, daily range): BP systolic 100–155; BP diastolic 44–91; PULSE 63–97; RESP 14–35; TEMP 98.8–100.8; O2SAT 65–100
[2024-12-31 03:22] LABS: Hematocrit 33.4 % (41.0-53.0); Hemoglobin 11.4 g/dL (13.5-17.5); Mean Corpuscular Hemoglobin 30.3 pg (28.0-32.0); Mean Corpuscular Volume 89.1 fL (80.0-100.0); Nucleated Red Blood Cells % 0.0 %
[2024-12-31 03:32] LABS: Albumin 4.3 g/dL (3.2-4.8); Anion Gap 9 (5-15); BUN/Creatinine Ratio 21.7 (10.0-20.0); Bilirubin, Total 0.4 mg/dL (0.2-1.0); Blood Urea Nitrogen 10 mg/dL (9-23); Calcium 9.5 mg/dL (8.7-10.4); Carbon Dioxide 27 mmol/L (20-31); Chloride 101 mmol/L (98-107); Glucose 87 mg/dL (74-106); Sodium 137 mmol/L (136-145); Total Protein 7.6 g/dL (5.7-8.2)
[2024-12-31 04:07] LABS: Alanine Aminotransferase 51 U/L (7-40); Alkaline Phosphatase 154 U/L (46-116); Potassium 3.5 mmol/L (3.5-5.1)
--- NOTE | 2024-12-31 05:26 | DVH ---
CHEST RADIOGRAPH Indication: pna Technique: Single frontal view of the chest was obtained COMPARISON: XY CHEST PORTABLE on DOS: 12/30/24, XY CHEST PORTABLE on DOS: 12/29/24, XY CHEST PORTABLE o n DOS: 12/28/24, XY CHEST PORTABLE on DOS: 12/27/24, XY CHEST PORTABLE on DOS: 12/26/24 FINDINGS: Lines and Tubes: Endotracheal tube, enteric catheter and right PICC in satisfactory position Lungs: Multifocal airspace disease Pleura: No effusion. No pneumothorax. Cardiomediastinal contours: Cardiomegaly Bones: Unremarkable IMPRESSION: Lines and tubes in satisfactory position. No significant interval change.
[2024-12-31 06:52] LABS: Base Excess 3.7 mmol/L (-2.0-3.0)
--- NOTE | 2024-12-31 09:19 | DVH ---
Date: 12/31/2024 08:42 AM Examination: XY KUB ABDOMEN SINGLE VIEW History: Constipated, pain Comparison: None TECHNIQUE: Frontal views of the abdomen was obtained. FINDINGS: Bowel gas pattern is unremarkable. The lung bases are unremarkable. No acute osseous abnormality identified. IMPRESSION: Nonobstructive bowel gas pattern. Moderate stool burden.
--- NOTE | 2024-12-31 09:36 | DVHPNRES ---
Progress Note Date Seen: Dec 31, 2024 Resident Creating Document: STUART SAGASTUME RESIDENT Medical Necessity Reason Pt with a Central, PICC or Fol: Yes The following are medically ne: Reed Catheter Reason for reed catheter: Strict I&O Subjective Review of Systems Patient is a 24-year-old male with past medical history of hypertension, chronic pain, substance abuse disorder, who was brought in due to new onset seizures. Patient is sedated and mechanically ventilated, history was obtained from patient's mother Ms. Sabillon via telephone. According to the patient's mother, patient has been abusing laughing gas heavily for some time, patient went to by laughing gas on Friday12/15/2024 and used it with his friend where according to the friend patient consumed most of the canister. Patient's mom took him to the rehab on 12/16/2024 where he had a seizure and was taken to the hospital and subsequently discharged back to the rehab facility. On patient again started having seizures which is when he was taken to the hospital again and was subsequently intubated. Patient reported saying he is prescribed Depakote but he has been noncompliant, serum valproic levels were below therapeutic range at 22.1 Past surgical history: Denies Smoking: Uses tobacco vaporizer pen heavily daily Alcohol: Remote history of heavy alcohol use Drugs: Mother is unsure, however, notes he may have history of cocaine abuse and MDMA abuse Previously patient was living in a rented home with a roommate, for the last 1 week was living with mother. Review of systems could not be completed due to patient being sedated and mechanically ventilated. 12/18- initially patient is stable on Keppra 500 b.i.d. but on 12/18 a.m. and into p.m. patient has multiple rapid response consecutively for breakthrough seizures. First rapid response headed by Dr. Grigsby where multiple rounds of Ativan and Keppra load 1 g was given.. Thereafter patient has multiple other episodes between page patient is able to come back to baseline following commands. Finally patient has another rapid response for seizure breakthrough had a proximally 340 p.m. where [facility] neurology is consulted to have expert advice to control seizures. Plan is made to complete Keppra load to maximum. Second-line plan is for valproate. However on a 3rd rapid response at approximately 5 p.m. patient goes on to seizure without returning to baseline for most 45 minutes. Although vitals were stable this is classified now status epilepticus and per guidance from tele neuro intubation needed with propofol. Patient is intubated approximately 530 p.m. there is moderate difficulty due to patient's morbid obesity. Procedure note for details, appreciate RT. Once intubation medications wearing off patient is very difficult to control seizures. Advancing dosing of propofol and Versed are required to maintain RASS of-3 to -4. Levophed is required given propofol causing hypotension. Right IJ cvc inserted also with difficulty due to short and obese neck, appreciate resident physicians. OG and urinary Reed placement w some difficulty, appreciate nursing. Placement of OG, right IJ CBC, ETT confirmed by chest x- ray. Patient care level advanced to ICU. We will maintain patient at high levels of sedation until neurology evaluation in house. 12/19-patient remains on multiple sedatives control seizures. Now in ICU room 103.. Patient is getting Versed 15, propofol 40, fentanyl 250, Levophed to. Maintaining RASS goal negative for. Patient is ventilated a.c. 20/550/45%/5.0. Vitals mostly stable. Heart rate is on the bradycardia side in 50s. Blood pressure stable with Levophed to maps low 70s. We will continue RASS-4 until neurology review tomorrow in house. Patient has been NPO for few days because of seizures, no bowel sounds today. Out of caution we will do TPN for today deferring enteral feeds until patient is on lower sedation. 12/21/24: Patient seen and examined at bedside. Noted to have some fevers and mild increase in leukocytosis, started on IV Zosyn. Mom and sister at bedside, details of illness explained, all questions answered and concerns addressed. 12/22/24: Patient seen and examined, plan to cpap trial tomorrow. 12/23/24: Overnight when Versed was decreased, patient was noted to have 3 seizures and then another seizure in the a.m., resumed Versed at 14 micrograms/hour. CPAP trial could not be completed. Added vancomycin. 12/24/2024: No further seizures. When down on fentanyl to 275, Versed 213, off of propofol right now. Patient is somewhat responsive and we will periodically move extremities. Chest x-ray showed slight improvement in bilateral effusions and stable airspace disease. Discontinued vancomycin. Creatinine kinase decreased to 1263. 12/25/24 -no significant changes. We will repeat a CK level. PICC line dislodged he will be replaced over guidewire. Electrolyte replacements.. We will maintain in deep sedation until week day for re-evaluation by Neurology for recurrent seizures. Vital signs are stable. Patient currently on fentanyl, Versed 8, propofol 30, fentanyl 200.. Patient is getting feeds Vital HP. Urine output dark brown. Ventilated a.c. 20/550/45%/5.0.. Patient is still having fevers and has required increasing amounts of oxygen saturation to maintain saturates. We will repeat blood cultures and sputum cultures, appreciate respiratory and obtaining that. 12/26/2024.-pulmonology plans for bronch today. ABG good. X-ray pending. We will continue sedatives given primary team's directives. Fentanyl 150 Versed 7 propofol 45. Clinimix,. Continuing IV antibiotics. Urine output adequate. Vitals stable no vasopressors map more than 75. On mechanical ventilation. A.c./20/5 50/50%/5.0.. We will continue sedation and sedation vacation trial tomorrow morning when primary returns. Update--after bronch we will try sedation vacation maximum 3-4 hours if he is doing well. Continue sedatives if any seizure activity is noted. We will try another sedation vacation tomorrow morning for primary to evaluate. 12/27/24: resumed vancomycin and tube feedings, started lactulose. increased PEEP to 8. went down on fentanyl to 150, versed 7 and prop 45. 12/28/2024: Continues to have low-grade fever, on FiO2 100% saturating in the early 90s, peak pressure 29 mmHg. Scheduled for repeat bronchoscopy today. 12/29/24: patient continues to have low-grade fevers, Tmax overnight 99.9. started on IV lasix 40mg daily. Detailed discussion held with patient's mother Ms. Sabillon, cousin and cousins at bedside. Possibility of trach was discussed owing to today being patients day 12 of intubation. 12/30/2024: Chest x-ray showed no change in pulmonary edema or bilateral pleural effusion, ordered CT angiography chest, however, patient unstable for transfer as FiO2 100%, started patient on therapeutic Lovenox. 12/31/24: SpO2 improving today, averaging at 97% on FiO2 100%. continues to have low grade fever. continue therapeutic lovenox. Increased PEEP from 10 to 12 Objective vital signs Vital Sign Date Time Temp Pulse Resp B/P (MAP) Pulse Ox O2 Delivery O2 Flow Rate FiO2 12/31/24 09:00 99.1 83 22 128/68 (88) 100 210.4 12/31/24 08:16 100 12/31/24 08:02 Mechanical Ventilator+ Total Intake and Output 12/30/24 12/30/24 12/31/24 15:00 23:00 07:00 Intake Total 1316.58 ml 1376.38 ml 1071.88 ml Output Total 2500 ml 1400 ml Balance 1316.58 ml -1123.62 ml -328.12 ml medications Current Medications Medications Dose Ordered Sig/Rick Route Start Time Stop Time Status Last Admin Dose Admin Lorazepam 1 mg Q5MINP PRN IV 12/18/24 11:00 12/23/24 08:43 1 MG Midazolam HCl 50 ml @ 1 mls/hr Q24H IV 12/18/24 21:15 12/31/24 08:25 8 MLS/HR Diagnostic Test (Pha) 1 strip Q6HR 12/19/24 12:00 12/31/24 06:17 1 STRIP Insulin Human Regular FOLLOW SLIDING SCALE Q6HR SC 12/19/24 12:00 Dextrose 50 ml UD IV 12/19/24 10:00 12/22/24 23:25 50 ML Albuterol 2.5 mg Q6HR NEB 12/19/24 18:00 12/31/24 06:22 2.5 MG Ipratropium [place] 0.5 mg Q6HR NEB 12/19/24 18:00 12/31/24 06:22 0.5 MG Pantoprazole Sodium 40 mg DAILY IV 12/21/24 10:00 12/31/24 07:38 40 MG Piperacillin Sod/ Tazobactam Sod 100 ml @ 25 mls/hr Q6HR IV 12/21/24 12:00 12/31/24 06:01 25 MLS/HR Polyethylene Glycol 17 gm DAILY PO 12/22/24 10:00 12/31/24 07:39 17 GM Docusate Sodium 100 mg BID GT 12/22/24 10:00 12/31/24 07:38 100 MG Acetaminophen 325 mg Q4HP PRN PO 12/22/24 08:15 12/30/24 23:45 325 MG Thiamine HCl 100 mg DAILY IV 12/24/24 10:00 12/31/24 07:59 100 MG Folic Acid 1 mg/ Dextrose 50.2 ml @ 200.8 mls/ hr DAILY INJ 12/24/24 10:00 12/31/24 07:40 200.8 MLS/HR Propofol 100 ml @ 4.311 mls/ hr [id number] IV 12/24/24 04:00 12/31/24 09:26 43.11 MLS/HR Sodium Chloride 10 ml QSHIFT@10,22 IV 12/24/24 22:00 12/31/24 07:40 10 ML Vancomycin HCl 0 ml @ 0 mls/hr UD IV 12/27/24 16:45 Enteral Nutritional Formula 1,000 ml 40ML/HR GT 12/27/24 16:45 12/28/24 02:01 1,000 ML Lactulose 15 ml DAILY PO 12/28/24 10:00 12/31/24 07:39 15 ML Fentanyl Citrate 250 ml @ 2.5 mls/hr Q24H IV 12/28/24 02:30 12/31/24 02:05 20 MLS/HR Furosemide 40 mg DAILY IV 12/30/24 10:00 12/31/24 07:38 40 MG Enoxaparin Sodium 130 mg Q12HR SC 12/30/24 22:00 12/31/24 07:40 130 MG Vancomycin HCl 200 ml @ 200 mls/hr Q6H IV 12/30/24 20:00 12/31/24 07:38 200 MLS/HR Levetiracetam 750 mg/Dextrose 107.5 ml @ 430 mls/hr BID IV 12/30/24 22:00 12/31/24 09:27 430 MLS/HR Examination General Appearance: Sedated and mechanically ventilated obese adult. Constricted pupils. Pulmonary/Respiratory: Coarse bilateral breath sounds Cardiovascular/Chest: Tachycardia Peripheral Pulses: 2+ Pedal (R). 2+ Pedal (L) Abdominal Exam: Normal bowel sounds. Soft. normal abdomen, no visible veins, Nontender. No hepatospenomegaly. No masses Lower extremities: Negative lower extremity edema Skin Exam: Normal inspection. Normal color. Dry. warm laboratory and microbiology Laboratory Tests 12/31/24 02:40 Test 12/31/24 02:40 Range/Units Serum Glucose 87 74-106 mg/dL Microbiology Date/Time Source Procedure Growth Status 12/26/24 11:46 Bronchial Washings Gram Stain - Final Complete 12/26/24 11:46 Respiratory Culture - Final Staphylococcus aureus Complete 12/25/24 15:20 Catheter Site Aerobic Culture - Final Staphylococcus epidermidis Complete 12/25/24 10:17 Blood Blood Culture - Final NO GROWTH AFTER 5 DAYS OF INCUBATION. Complete 12/20/24 17:00 Voided Urine Urine Culture - Final Complete Labs and/or images reviewed: Labs reviewed by me, Image(s) reviewed by me Problem List/Assessment/Plan Problem List/Assessment/Plan Neurology # acute likely toxic versus metabolic encephalopathy # new onset? Breakthrough grand mal seizures # medication nonadherence # possible alcohol withdrawal, unable to calculate CIWA # Sedated - Versed 8 - fentanyl 200 - proprofol 50 - serum valproic acid levels below normal 22.1 - IV levetiracetam 1500 mg b.i.d. - IV lorazepam as needed for seizures - head CT: No evidence of acute intracranial abnormality. If symptoms persist, consider MRI for further evaluation. - neurology on board - brain MRI: No evidence of acute infarction, intracranial hemorrhage, mass effect or hydrocephalus. No effects of mesial temporal sclerosis. Pansinusitis. Prominent bilateral cervical lymph nodes. - last seizure 12/23/2024 - brain EEG largely unremarkable - IV banana bag x2, IV thiamine, IV folic acid Cardiovascular # essential hypertension # sepsis secondary to aspiration pneumonia - stopped IV NS at 60 cc/hour Respiratory # Acute hypoxic respiratory failure secondary to intractable seizures # probable aspiration pneumonia, cultures growing MSSA # Ventilator # pulmonary edema # b/l pleural effusion # ?pulmonary embolism - intubated 12/18/2024 - on [facility] vent : VCAC Mode RR 20 TV 550ml, PEEP Of 10 and FiO2 of 90% - ipratropium and albuterol med nebs - CXR: Hypoinflated lungs with bibasilar atelectasis - started on IV Zosyn 12/21/2024 - started IV vancomycin per pharmacy on 12/23/2024, discontinued vancomycin on 12/24/2024 - resumed vancomycin on 12/27/24 - CXR 12/29/24: Stable cardiomegaly, bilateral pleural effusions and moderate diffuse increased prominence of the pulmonary vasculature. Right basilar pulmonary airspace disease. - IV lasix 40mg daily - ordered CT angiography chest - therapeutic Lovenox - ordered repeat lower extremity Doppler GI # transaminitis # Peptic ulcer prophylaxis # vitamin B12 deficiency # constipation, likely slow transit -Pantoprazole 40 mg IV daily - negative hepatitis-B and hepatitis-C - repleted with 1000 mcg B12 - lactulose daily - KUB: Nonobstructive bowel gas pattern. Moderate stool burden. # Reed catheter placed on 12/18/2024 Nephrology # hypernatremia, now improved # hypokalemia, now improved - serum creatinine 2159 on 12/23/2024, 1263 on 12/24/2024 - monitor Infectious disease # aspiration pneumonia # sepsis due to above # right IJ catheter tip (placed on 12/18/2024, removed on 12/24/2024) culture growing staph epidermidis - pancultures - IV Zosyn - IV vancomycin - Tylenol as needed for fever - s/p bronchoscopy x 2 Hem/onc # microcytic anemia, mild - monitor Psychiatry # substance use disorder - we will consider Psychiatry consult once patient is extubated DVT prophylaxis - Lovenox 40 mg subcutaneous daily Nutrition - tube feedings started on 12/21/2024 Lines Right PICC placed on 12/24/24 Left arm 20 gauge placed on 12/17/2024 Drips - Versed 8 - fentanyl 200 - propofol 50 Intubated on 12/18/2024 Bronchoscopy on 12/26/24 Repeat bronchoscopy on 12/28/2024 on [facility] vent : VCAC Mode RR 20 TV 550ml, PEEP Of 12 and FiO2 of 65% Critical care time 86 minutes excluding procedure. Code status discussed greater than 20 minutes: Full CODE STATUS. Plan discussed with Dr. New Detailed discussion held with patient's mother Ms. Sabillon at bedside. Possibility of trach was discussed owing to today being patients day 14 of intubation. Plan discussed with: Other (mother, RN) My Orders My Orders Orders - STUART SAGASTUME RESIDENT Procedure Category Date Status Time Vancomycin Per JADIEL 12/30/24 In Process Pharmacy Protoc 16:00 Vancomycin 1gm/200ml PHA 12/30/24 In Process Pm 20:00 Abg W/ Co-Ox RT 12/31/24 Logged 04:00 Kub Abdomen Single XY 12/31/24 Resulted View 04:00 Abg W/ Co-Ox RT 12/31/24 Logged 04:00 Chest Portable XY 12/31/24 Resulted 04:00 Vancomycin,Trough LAB 12/31/24 Logged 13:00 Vancomycin Per JADIEL 12/31/24 In Process Pharmacy Protoc 14:00 Dietary Evaluation Review Comments: 1) Continue TPN to meet at least 75% estimated needs 2) TF Vital High Protein @ 60ml/hr(goal) with current rate of propofol. TF at goal volume together with propofol provides 2471 kcal (100% eenrgy needs) & 126 gm protein (100% protein needs) 3) Monitor TPN tolerance, lab values, I/O, wt trend Expected Outcomes/Goals: To meet >75% estimated needs Fu 2-3 days STUART SAGASTUME RESIDENT Dec 31, 2024 09:36
--- NOTE | 2024-12-31 15:23 | DVH ---
CHEST RADIOGRAPH Indication: ngt placement Technique: Single frontal view of the chest was obtained Comparison: XY CHEST PORTABLE on DOS: 12/31/24, XY CHEST PORTABLE on DOS: 12/30/24, XY CHEST PORTABLE o n DOS: 12/29/24 FINDINGS: Lines and Tubes: Endotracheal tube 4 cm above the rogers. Enteric tube below the left diaphragm in th e stomach Lungs: No focal consolidation. Pleura: No effusion. No pneumothorax. Cardiomediastinal contours: Unremarkable Bones: No acute osseous abnormality. IMPRESSION: 1. Enteric tube below the left diaphragm in the stomach. 2. Endotracheal tube 424.3 cm above the rogers. 3. Poor inspiratory effort. HS:Y
[2024-12-31 16:03] LABS: Base Excess -0.9 mmol/L (-2.0-3.0)
--- NOTE | 2024-12-31 16:28 | DVH ---
US BiLat Lower DVT HISTORY: r/o dvt COMPARISON: US BILAT LOWER DVT on DOS: 12/20/24 TECHNIQUE: Duplex doppler evaluation of the deep venous system of the lower extremity from the common femoral veins, superficial femoral vein, great saphenous vein, deep femoral vein, popliteal vein, an d calf veins, including color doppler and spectral/pulsed waveform analysis, was performed. FINDINGS: Right: - Common femoral vein: Compressible - Deep femoral vein: Compressible - Femoral vein: Compressible - Popliteal vein: Compressible - Posterior tibial vein: Waveforms present - Other: Nothing Left: - Common femoral vein: Compressible - Deep femoral vein: Compressible - Femoral vein: Compressible - Popliteal vein: Compressible - Posterior tibial vein: Waveforms present - Other: Nothing IMPRESSION: No right or left lower extremity deep venous thrombosis.
--- NOTE | 2024-12-31 20:42 | DVHPN2 ---
Progress Note - Dictate Date Seen: Dec 31, 2024 Medical Necessity Reason Pt with a Central, PICC or Fol: Yes The following are medically ne: Reed Catheter Reason for reed catheter: Strict I&O Subjective Mr. Perry is a 24 years old right-handed gentleman with a history of hypertension, pain syndrome, substance abuse, he was admitted to the [facility] on 12/17/2024 for new onset seizure activity. I have seen and examined the patient, discussed with his nurses. He is better, responsive to painful stimuli, he has spontaneous movement in the extremities, more in the arms Fentanyl 200 mcg/hour, Versed 0 mg/hour, propofol 50 mcg/minute, FiO2: 65% Urinalysis, 12/17/2024: Unremarkable Urine drug screening, 12/17/2024: Benzo Valproic acid, 12/17/2024: 22.1 Plasma alcohol, 12/17/2024: <3 ABG, 12/18/2024: Respiratory acidosis, 12/20/2024: Acidosis, 12/22/2024: Hypoxia, 12/24/2024: Hypoxia, carbon dioxide retention, 12/25/2024: Hypoxia, carbon dioxide retention, 12/29/2024: Hypoxia, carbon dioxide retention WBC/HB/PLT/MCV, 12/20/2024: 8/12.4/233/90.4 CMP 12/18/2024: Unremarkable TBI/AST/ALT/AP, 12/20/2024: 0.7/44/45/143 EEG, 12/19/2019 10/26/24 13:15: Normal EEG, 12/23/2024: Moderately abnormal EEG Bronchoscopy 01/12/25: There were copious blood tinged secretions in the airways bilaterally Chest x-ray 12/18/2024: Endotracheal tube 0.7 cm above the rogers. Nasogastric tube in the proximal stomach Chest x-ray, 12/27/2024: 1. Stable mild multifocal bilateral pulmonary airspace disease, most notably at the lung bases. 2. Lines and tubes unchanged Chest x-ray, 12/29/2024: 1. Stable cardiomegaly, bilateral pleural effusions and moderate diffuse increased prominence of the pulmonary vasculature. 2. Right basilar pulmonary airspace disease. 3. Interval retraction of endotracheal tube as above. Remaining lines and tubes unchanged CT head, 12/17/2024: No evidence of acute intracranial abnormality. If symptoms persist, consider MRI for further evaluation MR head, 12/21/2024: No evidence of acute infarction, intracranial hemorrhage, mass effect or hydrocephalus. No evidence of mesial temporal sclerosis. Pansinusitis. Prominent bilateral cervical lymph nodes. This can be further evaluated with ultrasound vital signs Vital Sign Date Time Temp Pulse Resp B/P (MAP) Pulse Ox O2 Delivery O2 Flow Rate FiO2 12/31/24 20:00 81 12/31/24 20:00 20 99 Mechanical Ventilator+ 65 65 12/31/24 19:45 99.3 132/65 (87) 210.7 Total Intake and Output 12/30/24 12/30/24 12/31/24 15:00 23:00 07:00 Intake Total 1316.58 ml 1376.38 ml 1071.88 ml Output Total 2500 ml 1400 ml Balance 1316.58 ml -1123.62 ml -328.12 ml medications Current Medications Medications Dose Ordered Sig/Rick Route Start Time Stop Time Status Last Admin Dose Admin Lorazepam 1 mg Q5MINP PRN IV 12/18/24 11:00 12/23/24 08:43 1 MG Midazolam HCl 50 ml @ 1 mls/hr Q24H IV 12/18/24 21:15 12/31/24 13:39 8 MLS/HR Diagnostic Test (Pha) 1 strip Q6HR 12/19/24 12:00 12/31/24 17:15 1 STRIP Insulin Human Regular FOLLOW SLIDING SCALE Q6HR SC 12/19/24 12:00 Dextrose 50 ml UD IV 12/19/24 10:00 12/22/24 23:25 50 ML Albuterol 2.5 mg Q6HR NEB 12/19/24 18:00 12/31/24 18:24 2.5 MG Ipratropium [place] 0.5 mg Q6HR NEB 12/19/24 18:00 12/31/24 18:24 0.5 MG Pantoprazole Sodium 40 mg DAILY IV 12/21/24 10:00 12/31/24 07:38 40 MG Piperacillin Sod/ Tazobactam Sod 100 ml @ 25 mls/hr Q6HR IV 12/21/24 12:00 12/31/24 17:06 25 MLS/HR Polyethylene Glycol 17 gm DAILY PO 12/22/24 10:00 12/31/24 07:39 17 GM Docusate Sodium 100 mg BID GT 12/22/24 10:00 12/31/24 07:38 100 MG Thiamine HCl 100 mg DAILY IV 12/24/24 10:00 12/31/24 07:59 100 MG Folic Acid 1 mg/ Dextrose 50.2 ml @ 200.8 mls/ hr DAILY INJ 12/24/24 10:00 12/31/24 07:40 200.8 MLS/HR Propofol 100 ml @ 4.311 mls/ hr [id number] IV 12/24/24 04:00 12/31/24 19:32 43.11 MLS/HR Sodium Chloride 10 ml QSHIFT@10,22 IV 12/24/24 22:00 12/31/24 07:40 10 ML Vancomycin HCl 0 ml @ 0 mls/hr UD IV 12/27/24 16:45 Enteral Nutritional Formula 1,000 ml 40ML/HR GT 12/27/24 16:45 12/28/24 02:01 1,000 ML Lactulose 15 ml DAILY PO 12/28/24 10:00 12/31/24 07:39 15 ML Fentanyl Citrate 250 ml @ 2.5 mls/hr Q24H IV 12/28/24 02:30 12/31/24 13:39 20 MLS/HR Furosemide 40 mg DAILY IV 12/30/24 10:00 12/31/24 07:38 40 MG Enoxaparin Sodium 130 mg Q12HR SC 12/30/24 22:00 12/31/24 07:40 130 MG Vancomycin HCl 200 ml @ 200 mls/hr Q6H IV 12/30/24 20:00 12/31/24 20:03 200 MLS/HR Levetiracetam 750 mg/Dextrose 107.5 ml @ 430 mls/hr BID IV 12/30/24 22:00 12/31/24 09:27 430 MLS/HR Acetaminophen 625 mg Q8HPRN PRN GT 12/31/24 16:00 objective The patient is well-nourished and well-developed with no distress. The patient is intubated MENTAL STATUS: Subjective CRANIAL NERVES: Pupils are equal, round and nonreactive, small. There are corneal reflexes and doll's eyes phenomenon. No signs of facial weakness. There are gagging or coughing reflexes SENSATION: Responses to pain stimuli. MOTOR: Normal tone in the upper and lower extremity. Normal muscle bulk. No fasciculations. Spontaneous movement in the arms and the legs REFLEXES: Deep tendon reflexes are symmetrical. No pathological reflexes. CEREBELLAR/COORDINATION: Deferred GAIT/STATION: deferred laboratory and microbiology Laboratory Tests 12/31/24 02:40 Test 12/31/24 02:40 Range/Units Serum Glucose 87 74-106 mg/dL Problem List Come Metabolic encephalopathy Hypoxic encephalopathy Toxic encephalopathy ? Status epileptics New onset seizure, status epileptics Likely secondary to substance abuse Rule out epileptic seizure or other acute symptomatic seizure The activity witnessed on 12/23/2024 was not typical to seizure, likely myoclonus Substance abuse ? Depression Respiratory failure/hypoxia Pneumonia Assessment/Plan Monitoring Supportive treatment Telemetry Follow-up lab ICU care Stabilize vitals/pressor drip Respiratory support/vent management Ativan for seizure breakthrough Reduce the Keppra to 750 mg IV b.i.d. , he may not need preventive seizure treatment Need history from him directly Consider tele psych consultation Re: The previous substance abuse later More recommendation per clinical course This medical document was created using an electronic medical record system with [employer] dictation system. Although this document has been carefully reviewed, there may still be some phonetic and typographical errors. These areas are purely typographical due to imperfections of the software programs, and do not reflect any compromise in the patient's medical care. Prognosis guarded Dietary Evaluation Review Comments: 1) Continue TPN to meet at least 75% estimated needs 2) TF Vital High Protein @ 60ml/hr(goal) with current rate of propofol. TF at goal volume together with propofol provides 2471 kcal (100% eenrgy needs) & 126 gm protein (100% protein needs) 3) Monitor TPN tolerance, lab values, I/O, wt trend Expected Outcomes/Goals: To meet >75% estimated needs Fu 2-3 days Plan discussed with: Other BONNY PEREZ MD Dec 31, 2024 20:42
[2024-12-31] MEDS: ACETAMINOPHEN 650 mg PER 20.3 mL UD GT PRN (21:20)
[2025-01-01] VITALS (108 sets, daily range): BP systolic 95–144; BP diastolic 37–80; PULSE 64–98; RESP 7–32; TEMP 98.2–101.3; O2SAT 98–100
[2025-01-01 03:31] LABS: Hematocrit 32.7 % (41.0-53.0); Hemoglobin 11.4 g/dL (13.5-17.5); Mean Corpuscular Hemoglobin 30.9 pg (28.0-32.0); Mean Corpuscular Volume 88.6 fL (80.0-100.0); Nucleated Red Blood Cells % 0.1 %
[2025-01-01 03:50] LABS: Anion Gap 10 (5-15); BUN/Creatinine Ratio 22.2 (10.0-20.0); Blood Urea Nitrogen 10 mg/dL (9-23); Carbon Dioxide 28 mmol/L (20-31); Chloride 100 mmol/L (98-107); Glucose 85 mg/dL (74-106); Sodium 138 mmol/L (136-145); Total Protein 7.7 g/dL (5.7-8.2)
[2025-01-01 03:51] LABS: Albumin 4.4 g/dL (3.2-4.8); Bilirubin, Total 0.4 mg/dL (0.2-1.0)
[2025-01-01 03:58] LABS: Alanine Aminotransferase 55 U/L (7-40); Alkaline Phosphatase 160 U/L (46-116); Calcium 10.4 mg/dL (8.7-10.4); Potassium 3.0 mmol/L (3.5-5.1)
[2025-01-01] MEDS: POTASSIUM CHL 20MEQ/100ML 100 ML IV ONE (04:56)
[2025-01-01 06:15] LABS: Base Excess 1.2 mmol/L (-2.0-3.0)
--- NOTE | 2025-01-01 06:20 | DVH ---
CHEST RADIOGRAPH Indication: pna Technique: Single frontal view of the chest was obtained COMPARISON: XY CHEST PORTABLE on DOS: 12/31/24, XY CHEST PORTABLE on DOS: 12/31/24, XY CHEST PORTABLE o n DOS: 12/30/24, XY CHEST PORTABLE on DOS: 12/29/24, XY CHEST PORTABLE on DOS: 12/28/24 FINDINGS: Lines and Tubes: Right peripherally inserted central catheter tip is coiled on the current exam in lo oped within a sinus or back upon itself. Remaining lines and tubes are unchanged. Lungs: Stable appearing moderate bibasilar pulmonary airspace disease and small bilateral pleural eff usions. No pneumothorax. Cardiomediastinal contours: Unremarkable Bones: Unremarkable IMPRESSION: 1. Stable moderate bibasilar pulmonary airspace disease and small bilateral pleural effusions. 2. Right PICC tip malpositioned. Recommend repositioning. Remaining lines and tubes unchanged.
[2025-01-01] MEDS: POTASSIUM EFFERVESENT TAB 25 MEQ NG ONE (10:00)
--- NOTE | 2025-01-01 13:24 | DVHPN2 ---
Progress Note - Dictate Date Seen: Jan 01, 2025 Medical Necessity Reason Pt with a Central, PICC or Fol: Yes The following are medically ne: Reed Catheter Reason for reed catheter: Strict I&O vital signs Vital Sign Date Time Temp Pulse Resp B/P (MAP) Pulse Ox O2 Delivery O2 Flow Rate FiO2 01/01/25 12:10 81 20 105/56 (72) 100 65 01/01/25 08:00 Mechanical Ventilator+ 01/01/25 06:45 99.7 211.5 Total Intake and Output 12/31/24 12/31/24 01/01/25 15:00 23:00 07:00 Intake Total 1326.08 ml 1176.38 ml 1447.88 ml Output Total 3100 ml 1300 ml Balance 1326.08 ml -1923.62 ml 147.88 ml medications Current Medications Medications Dose Ordered Sig/Rick Route Start Time Stop Time Status Last Admin Dose Admin Lorazepam 1 mg Q5MINP PRN IV 12/18/24 11:00 12/23/24 08:43 1 MG Midazolam HCl 50 ml @ 1 mls/hr Q24H IV 12/18/24 21:15 01/01/25 12:46 9 MLS/HR Diagnostic Test (Pha) 1 strip Q6HR 12/19/24 12:00 01/01/25 05:33 1 STRIP Insulin Human Regular FOLLOW SLIDING SCALE Q6HR SC 12/19/24 12:00 Dextrose 50 ml UD IV 12/19/24 10:00 12/22/24 23:25 50 ML Albuterol 2.5 mg Q6HR NEB 12/19/24 18:00 01/01/25 12:09 2.5 MG Ipratropium [place] 0.5 mg Q6HR NEB 12/19/24 18:00 01/01/25 12:07 0.5 MG Pantoprazole Sodium 40 mg DAILY IV 12/21/24 10:00 01/01/25 10:04 40 MG Piperacillin Sod/ Tazobactam Sod 100 ml @ 25 mls/hr Q6HR IV 12/21/24 12:00 01/01/25 05:28 25 MLS/HR Polyethylene Glycol 17 gm DAILY PO 12/22/24 10:00 01/01/25 10:04 17 GM Docusate Sodium 100 mg BID GT 12/22/24 10:00 01/01/25 10:01 100 MG Thiamine HCl 100 mg DAILY IV 12/24/24 10:00 01/01/25 10:04 100 MG Folic Acid 1 mg/ Dextrose 50.2 ml @ 200.8 mls/ hr DAILY INJ 12/24/24 10:00 01/01/25 10:02 200.8 MLS/HR Propofol 100 ml @ 4.311 mls/ hr [id number] IV 12/24/24 04:00 01/01/25 12:46 43.11 MLS/HR Sodium Chloride 10 ml QSHIFT@10,22 IV 12/24/24 22:00 01/01/25 10:04 10 ML Vancomycin HCl 0 ml @ 0 mls/hr UD IV 12/27/24 16:45 Enteral Nutritional Formula 1,000 ml 40ML/HR GT 12/27/24 16:45 12/28/24 02:01 1,000 ML Lactulose 15 ml DAILY PO 12/28/24 10:00 01/01/25 10:04 15 ML Fentanyl Citrate 250 ml @ 2.5 mls/hr Q24H IV 12/28/24 02:30 01/01/25 12:46 22.5 MLS/HR Furosemide 40 mg DAILY IV 12/30/24 10:00 01/01/25 10:04 40 MG Enoxaparin Sodium 130 mg Q12HR SC 12/30/24 22:00 01/01/25 10:08 130 MG Vancomycin HCl 200 ml @ 200 mls/hr Q6H IV 12/30/24 20:00 01/01/25 08:09 200 MLS/HR Levetiracetam 750 mg/Dextrose 107.5 ml @ 430 mls/hr BID IV 12/30/24 22:00 01/01/25 10:00 430 MLS/HR Acetaminophen 625 mg Q8HPRN PRN GT 12/31/24 16:00 01/01/25 04:43 625 MG laboratory and microbiology Laboratory Tests 01/01/25 02:47 Test 01/01/25 02:47 Range/Units Serum Glucose 85 74-106 mg/dL Assessment/Plan Raveler rounds Impression Acute hypoxemic respiratory failure ? Aspiration pneumonia Substance abuse Seizures Patient seen and examined in ICU Events On mechanical ventilation S/p intubation PEEP 12, FiO2 60% S/p bronchoscopy x2 Labs and imaging reviewed Chest x-ray shows bilateral airspace opacities consistent with pneumonia ABG reviewed- stable Management Vent support Titrate to maintain sats 90% or above Sedation for vent synchrony Okay to use Precedex as needed Antibiotics for ? aspiration pneumonia Okay to de-escalate Bronchodilators Monitor renal function Monitor electrolytes Supplement as needed Pressors as needed for hemodynamic support To maintain a mean arterial pressure of 65 mmHg Antiepileptics as ordered DVT prophylaxis Critical care time 35 minutes Dietary Evaluation Review Comments: 1) Continue TPN to meet at least 75% estimated needs 2) TF Vital High Protein @ 60ml/hr(goal) with current rate of propofol. TF at goal volume together with propofol provides 2471 kcal (100% eenrgy needs) & 126 gm protein (100% protein needs) 3) Monitor TPN tolerance, lab values, I/O, wt trend Expected Outcomes/Goals: To meet >75% estimated needs Fu 2-3 days Plan discussed with: Other (Rn) LI DUFFY MD Jan 01, 2025 13:24
--- NOTE | 2025-01-01 18:43 | DVHPN2 ---
Reviewed: Care Plan, H&P Changes from previous H/P or p: No Changes General: Per HPI Eyes: No Pain, No Vision change, No Conjunctivae inflammation, No Eyelid inflammation, No Other, No Redness ENT: No Ear pain, No Ear discharge, No Nose pain, No Nose discharge, No Nose congestion, No Mouth pain, No Mouth swelling, No Throat pain, No Throat swelling, No Other Cardiovascular: No Chest Pain, No Palpitations, No Orthopnea, No Paroxysmal Noc. Dyspnea, No Edema, No Lt Headedness, No Other Respiratory: No Cough, No Dry, No Shortness of breath, No SOB with excertion, No Wheezing, No Hemoptysis, No Pleuritic Pain, No Sputum, No Other Gastrointestinal: No Nausea, No Vomiting, No Abdominal Pain, No Diarrhea, No Constipation, No Melena, No Hematochezia, No Other Genitourinary: No Dysuria, No Frequency, No Incontinence, No Hematuria, No Retention, No Other Musculoskeletal: No other, No neck pain, No shoulder pain, No arm pain, No back pain, No hand pain, No leg pain, No foot pain Skin: No Rash, No Lesions, No Jaundice, No Bruising, No Other Objective Vitals Vital Signs Date Time Temp Pulse Resp B/P (MAP) Pulse Ox O2 Delivery O2 Flow Rate FiO2 01/01/25 16:16 79 20 115/53 (73) 100 50 01/01/25 16:00 Mechanical Ventilator+ 01/01/25 14:30 98.4 209.1 Intake/Output Intake and Output 01/01/25 07:00 Intake Total 3950.34 ml Output Total 4400 ml Balance -449.66 ml Intake Oral 280 ml IV Total 3085.34 ml Tube Feeding 585 ml Output Urine Total 4400 ml Stool Total 0 ml Cardiovascular: Regular rate, Normal S1, Normal S2 Abdomen: Normal bowel sounds, Soft Medications Current Medications Medications Dose Ordered Sig/Rick Route Start Time Stop Time Status Last Admin Dose Admin Lorazepam 1 mg Q5MINP PRN IV 12/18/24 11:00 12/23/24 08:43 1 MG Midazolam HCl 50 ml @ 1 mls/hr Q24H IV 12/18/24 21:15 01/01/25 12:46 9 MLS/HR Diagnostic Test (Pha) 1 strip Q6HR 12/19/24 12:00 01/01/25 12:00 1 STRIP Insulin Human Regular FOLLOW SLIDING SCALE Q6HR SC 12/19/24 12:00 Dextrose 50 ml UD IV 12/19/24 10:00 12/22/24 23:25 50 ML Albuterol 2.5 mg Q6HR NEB 12/19/24 18:00 01/01/25 12:09 2.5 MG Ipratropium [place] 0.5 mg Q6HR NEB 12/19/24 18:00 01/01/25 12:07 0.5 MG Pantoprazole Sodium 40 mg DAILY IV 12/21/24 10:00 01/01/25 10:04 40 MG Piperacillin Sod/ Tazobactam Sod 100 ml @ 25 mls/hr Q6HR IV 12/21/24 12:00 01/01/25 13:37 25 MLS/HR Polyethylene Glycol 17 gm DAILY PO 12/22/24 10:00 01/01/25 10:04 17 GM Docusate Sodium 100 mg BID GT 12/22/24 10:00 01/01/25 10:01 100 MG Thiamine HCl 100 mg DAILY IV 12/24/24 10:00 01/01/25 10:04 100 MG Folic Acid 1 mg/ Dextrose 50.2 ml @ 200.8 mls/ hr DAILY INJ 12/24/24 10:00 01/01/25 10:02 200.8 MLS/HR Propofol 100 ml @ 4.311 mls/ hr [id number] IV 12/24/24 04:00 01/01/25 17:35 34.488 MLS/HR Sodium Chloride 10 ml QSHIFT@10,22 IV 12/24/24 22:00 01/01/25 10:04 10 ML Vancomycin HCl 0 ml @ 0 mls/hr UD IV 12/27/24 16:45 Enteral Nutritional Formula 1,000 ml 40ML/HR GT 12/27/24 16:45 12/28/24 02:01 1,000 ML Lactulose 15 ml DAILY PO 12/28/24 10:00 01/01/25 10:04 15 ML Fentanyl Citrate 250 ml @ 2.5 mls/hr Q24H IV 12/28/24 02:30 01/01/25 12:46 22.5 MLS/HR Furosemide 40 mg DAILY IV 12/30/24 10:00 01/01/25 10:04 40 MG Enoxaparin Sodium 130 mg Q12HR SC 12/30/24 22:00 01/01/25 10:08 130 MG Vancomycin HCl 200 ml @ 200 mls/hr Q6H IV 12/30/24 20:00 01/01/25 14:45 200 MLS/HR Levetiracetam 750 mg/Dextrose 107.5 ml @ 430 mls/hr BID IV 12/30/24 22:00 01/01/25 10:00 430 MLS/HR Acetaminophen 625 mg Q8HPRN PRN GT 12/31/24 16:00 01/01/25 04:43 625 MG Laboratory Results Laboratory Tests 01/01/25 02:47 Chemistry Test 01/01/25 02:47 Albumin 4.4 g/dL (3.2-4.8) Calcium Level 10.4 mg/dL (8.7-10.4) Total Protein 7.7 g/dL (5.7-8.2) LFT Test 01/01/25 02:47 Alanine Aminotransferase (ALT) 55 U/L (7-40) H Alkaline Phosphatase 160 U/L (46-116) H Aspartate Amino Transferase (AST) 30 U/L (13-40) Total Bilirubin 0.4 mg/dL (0.2-1.0) Urinalysis Test 12/17/24 23:14 Urine Color Light-yellow (Yellow) Urine Clarity Clear (Clear) Urine pH 6.5 (5.0-9.0) Urine Specific [place] 1.024 (1.001-1.035) Urine Protein Negative (Negative) Urine Ketones Trace (Negative) Urine Blood Negative /uL (Negative) Urine Nitrite Negative (Negative) Urine Bilirubin Negative (Negative) Urine Urobilinogen Normal mg/dL (Negative) Urine Leukocyte Esterase Negative /uL (Negative) Urine RBC 1 /hpf (0 - 3) Urine Microscopic WBC < 1 /HPF (0-3) Urine Squamous Epithelial Cells Few /hpf (<5) Urine Bacteria None seen /hpf (None Seen) Urine Yeast (Budding) Occasional /hpf (None Urine Glucose Normal mg/dL (Normal) Blood Gas Results Test 01/01/25 05:59 Arterial Blood pH 7.407 (7.350-7.450) FiO2 % 65.0 Microbiology Microbiology Date/Time Source Procedure Growth Status 12/26/24 11:46 Bronchial Washings Gram Stain - Final Complete 12/26/24 11:46 Respiratory Culture - Final Staphylococcus aureus Complete 12/25/24 15:20 Catheter Site Aerobic Culture - Final Staphylococcus epidermidis Complete 12/25/24 10:17 Blood Blood Culture - Final NO GROWTH AFTER 5 DAYS OF INCUBATION. Complete 12/20/24 17:00 Voided Urine Urine Culture - Final Complete Labs and/or images reviewed: Labs reviewed by me, Image(s) reviewed by me Assessment/Plan Assessment/Plan # acute likely toxic versus metabolic encephalopathy # new onset? Breakthrough grand mal seizures # medication nonadherence # possible alcohol withdrawal, unable to calculate CIWA # essential hypertension # sepsis secondary to aspiration pneumonia # Acute hypoxic respiratory failure secondary to intractable seizures # probable aspiration pneumonia, cultures growing MSSA # Ventilator # pulmonary edema # b/l pleural effusion # ?pulmonary embolism # transaminitis # Peptic ulcer prophylaxis # vitamin B12 deficiency # constipation, likely slow transit # hypernatremia, now improved # hypokalemia, now improved # aspiration pneumonia # sepsis due to above # right IJ catheter tip (placed on 12/18/2024, removed on 12/24/2024) culture growing staph epidermidis # microcytic anemia, mild # substance use disorder 12/31/24: SpO2 improving today, averaging at 97% on FiO2 100%. continues to have low grade fever. continue therapeutic lovenox. Increased PEEP from 10 to 12 01/01/2025: pt is somewhat stable on vent but with high parameters: PEEP of 12 and FiO2 of 60 no vasopressors will need CTA but unstable at the moment discussed with mother at bedside Plan discussed with: Patient Date of Service: Jan 01, 2025 Billing Provider: LUIS SIDDIQI DO Common Visit Codes: [id number] CARE 30-74 MIN LUIS SIDDIQI DO Jan 01, 2025 18:43
--- NOTE | 2025-01-01 22:19 | DVHPN2 ---
Progress Note - Dictate Date Seen: Jan 01, 2025 Medical Necessity Reason Pt with a Central, PICC or Fol: Yes The following are medically ne: Reed Catheter Reason for reed catheter: Strict I&O Subjective Mr. Perry is a 24 years old right-handed gentleman with a history of hypertension, pain syndrome, substance abuse, he was admitted to the [facility] on 12/17/2024 for new onset seizure activity. I have seen and examined the patient, discussed with his nurses. No obvious change, he is not responsive to painful stimuli, he has no spontaneous movement Fentanyl 225 mcg/hour, Versed 9 mg/hour, propofol 50 mcg/minute, FiO2: 55% Urinalysis, 12/17/2024: Unremarkable Urine drug screening, 12/17/2024: Benzo Valproic acid, 12/17/2024: 22.1 Plasma alcohol, 12/17/2024: <3 ABG, 12/18/2024: Respiratory acidosis, 12/20/2024: Acidosis, 12/22/2024: Hypoxia, 12/24/2024: Hypoxia, carbon dioxide retention, 12/25/2024: Hypoxia, carbon dioxide retention, 12/29/2024: Hypoxia, carbon dioxide retention WBC/HB/PLT/MCV, 12/20/2024: 8/12.4/233/90.4 CMP 12/18/2024: Unremarkable TBI/AST/ALT/AP, 12/20/2024: 0.7/44/45/143 EEG, 12/19/2019 10/26/24 13:15: Normal EEG, 12/23/2024: Moderately abnormal EEG Bronchoscopy 01/12/25: There were copious blood tinged secretions in the airways bilaterally Chest x-ray 12/18/2024: Endotracheal tube 0.7 cm above the rogers. Nasogastric tube in the proximal stomach Chest x-ray, 12/27/2024: 1. Stable mild multifocal bilateral pulmonary airspace disease, most notably at the lung bases. 2. Lines and tubes unchanged Chest x-ray, 12/29/2024: 1. Stable cardiomegaly, bilateral pleural effusions and moderate diffuse increased prominence of the pulmonary vasculature. 2. Right basilar pulmonary airspace disease. 3. Interval retraction of endotracheal tube as above. Remaining lines and tubes unchanged CT head, 12/17/2024: No evidence of acute intracranial abnormality. If symptoms persist, consider MRI for further evaluation MR head, 12/21/2024: No evidence of acute infarction, intracranial hemorrhage, mass effect or hydrocephalus. No evidence of mesial temporal sclerosis. Pansinusitis. Prominent bilateral cervical lymph nodes. This can be further evaluated with ultrasound vital signs Vital Sign Date Time Temp Pulse Resp B/P (MAP) Pulse Ox O2 Delivery O2 Flow Rate FiO2 01/01/25 22:07 72 20 119/65 (83) 100 50 01/01/25 22:00 99.7 211.5 01/01/25 22:00 Mechanical Ventilator+ Total Intake and Output 12/31/24 12/31/24 01/01/25 15:00 23:00 07:00 Intake Total 1326.08 ml 1176.38 ml 1447.88 ml Output Total 3100 ml 1300 ml Balance 1326.08 ml -1923.62 ml 147.88 ml medications Current Medications Medications Dose Ordered Sig/Rick Route Start Time Stop Time Status Last Admin Dose Admin Lorazepam 1 mg Q5MINP PRN IV 12/18/24 11:00 12/23/24 08:43 1 MG Midazolam HCl 50 ml @ 1 mls/hr Q24H IV 12/18/24 21:15 01/01/25 12:46 9 MLS/HR Diagnostic Test (Pha) 1 strip Q6HR 12/19/24 12:00 01/01/25 18:00 1 STRIP Insulin Human Regular FOLLOW SLIDING SCALE Q6HR SC 12/19/24 12:00 Dextrose 50 ml UD IV 12/19/24 10:00 12/22/24 23:25 50 ML Albuterol 2.5 mg Q6HR NEB 12/19/24 18:00 01/01/25 18:42 2.5 MG Ipratropium [place] 0.5 mg Q6HR NEB 12/19/24 18:00 01/01/25 18:41 0.5 MG Pantoprazole Sodium 40 mg DAILY IV 12/21/24 10:00 01/01/25 10:04 40 MG Piperacillin Sod/ Tazobactam Sod 100 ml @ 25 mls/hr Q6HR IV 12/21/24 12:00 01/01/25 18:00 25 MLS/HR Polyethylene Glycol 17 gm DAILY PO 12/22/24 10:00 01/01/25 10:04 17 GM Docusate Sodium 100 mg BID GT 12/22/24 10:00 01/01/25 21:49 100 MG Thiamine HCl 100 mg DAILY IV 12/24/24 10:00 01/01/25 10:04 100 MG Folic Acid 1 mg/ Dextrose 50.2 ml @ 200.8 mls/ hr DAILY INJ 12/24/24 10:00 01/01/25 10:02 200.8 MLS/HR Propofol 100 ml @ 4.311 mls/ hr [id number] IV 12/24/24 04:00 01/01/25 21:48 43.11 MLS/HR Sodium Chloride 10 ml QSHIFT@10,22 IV 12/24/24 22:00 01/01/25 21:50 10 ML Vancomycin HCl 0 ml @ 0 mls/hr UD IV 12/27/24 16:45 Enteral Nutritional Formula 1,000 ml 40ML/HR GT 12/27/24 16:45 12/28/24 02:01 1,000 ML Lactulose 15 ml DAILY PO 12/28/24 10:00 01/01/25 10:04 15 ML Fentanyl Citrate 250 ml @ 2.5 mls/hr Q24H IV 12/28/24 02:30 01/01/25 12:46 22.5 MLS/HR Furosemide 40 mg DAILY IV 12/30/24 10:00 01/01/25 10:04 40 MG Enoxaparin Sodium 130 mg Q12HR SC 12/30/24 22:00 01/01/25 21:49 130 MG Vancomycin HCl 200 ml @ 200 mls/hr Q6H IV 12/30/24 20:00 01/01/25 21:49 200 MLS/HR Levetiracetam 750 mg/Dextrose 107.5 ml @ 430 mls/hr BID IV 12/30/24 22:00 01/01/25 21:50 430 MLS/HR Acetaminophen 625 mg Q8HPRN PRN GT 12/31/24 16:00 01/01/25 04:43 625 MG objective The patient is well-nourished and well-developed with no distress. The patient is intubated MENTAL STATUS: Subjective CRANIAL NERVES: Pupils are equal, round and nonreactive, small. There are corneal reflexes and doll's eyes phenomenon. No signs of facial weakness. There are gagging or coughing reflexes SENSATION: Responses to pain stimuli. MOTOR: Normal tone in the upper and lower extremity. Normal muscle bulk. No fasciculations. Spontaneous movement in the arms and the legs REFLEXES: Deep tendon reflexes are symmetrical. No pathological reflexes. CEREBELLAR/COORDINATION: Deferred GAIT/STATION: deferred laboratory and microbiology Laboratory Tests 01/01/25 02:47 Test 01/01/25 02:47 Range/Units Serum Glucose 85 74-106 mg/dL Problem List Come Metabolic encephalopathy Hypoxic encephalopathy Toxic encephalopathy ? Status epileptics New onset seizure, status epileptics Likely secondary to substance abuse Rule out epileptic seizure or other acute symptomatic seizure The activity witnessed on 12/23/2024 was not typical to seizure, likely myoclonus Substance abuse ? Depression Respiratory failure/hypoxia Pneumonia Assessment/Plan Monitoring Supportive treatment Telemetry Follow-up lab ICU care Stabilize vitals/pressor drip Respiratory support/vent management Ativan for seizure breakthrough Reduce the Keppra to 750 mg IV b.i.d. , he may not need preventive seizure treatment Need history from him directly Consider tele psych consultation Re: The previous substance abuse later More recommendation per clinical course This medical document was created using an electronic medical record system with [employer] computerized dictation system. Although this document has been carefully reviewed, there may still be some phonetic and typographical errors. These areas are purely typographical due to imperfections of the software programs, and do not reflect any compromise in the patient's medical care. Prognosis Guarded Dietary Evaluation Review Comments: 1) Continue TPN to meet at least 75% estimated needs 2) TF Vital High Protein @ 60ml/hr(goal) with current rate of propofol. TF at goal volume together with propofol provides 2471 kcal (100% eenrgy needs) & 126 gm protein (100% protein needs) 3) Monitor TPN tolerance, lab values, I/O, wt trend Expected Outcomes/Goals: To meet >75% estimated needs Fu 2-3 days Plan discussed with: Other BONNY PEREZ MD Jan 01, 2025 22:19
[2025-01-02] VITALS (107 sets, daily range): BP systolic 96–140; BP diastolic 42–79; PULSE 60–90; RESP 19–30; TEMP 97.3–100.4; O2SAT 94–100
[2025-01-02 03:26] LABS: Anion Gap 11 (5-15); Carbon Dioxide 28 mmol/L (20-31); Chloride 100 mmol/L (98-107); Sodium 139 mmol/L (136-145)
[2025-01-02 03:27] LABS: Hematocrit 32.4 % (41.0-53.0); Hemoglobin 11.3 g/dL (13.5-17.5); Mean Corpuscular Hemoglobin 30.8 pg (28.0-32.0); Mean Corpuscular Volume 88.7 fL (80.0-100.0); Nucleated Red Blood Cells % 0.0 %
[2025-01-02 03:28] LABS: Calcium 9.6 mg/dL (8.7-10.4)
[2025-01-02 03:32] LABS: BUN/Creatinine Ratio 20.4 (10.0-20.0); Blood Urea Nitrogen 10 mg/dL (9-23); Glucose 94 mg/dL (74-106)
[2025-01-02 03:38] LABS: Potassium 3.1 mmol/L (3.5-5.1)
[2025-01-02] MEDS: POTASSIUM CHL 20MEQ/100ML 100 ML IV SCH (04:23)
--- NOTE | 2025-01-02 06:05 | DVH ---
EXAM: XY CHEST PORTABLE Indication: patient intubated Technique: Single frontal view of the chest was obtained Comparison: XY CHEST PORTABLE on DOS: 01/01/25, XY CHEST PORTABLE on DOS: 12/31/24, XY CHEST PORTABLE o n DOS: 12/31/24, XY CHEST PORTABLE on DOS: 12/30/24, XY CHEST PORTABLE on DOS: 12/29/24, XY CHEST PORTAB LE on DOS: 01/01/25 FINDINGS: Lines and Tubes: Right peripherally inserted central catheter tip projects over the superior vena cav a.. Remaining lines and tubes are unchanged. Lungs: Stable appearing moderate bibasilar pulmonary airspace disease and small bilateral pleural eff usions. Low lung volumes. No pneumothorax. Cardiomediastinal contours: Unremarkable Bones: Unremarkable IMPRESSION: Right PICC tip projects over the superior vena cava. Otherwise no significant change compared to prio r exam.
[2025-01-02 08:51] LABS: Base Excess 0.7 mmol/L (-2.0-3.0)
--- NOTE | 2025-01-02 13:37 | DVHPN2 ---
Progress Note - Dictate Date Seen: Jan 02, 2025 Medical Necessity Reason Pt with a Central, PICC or Fol: Yes The following are medically ne: Reed Catheter Reason for reed catheter: Strict I&O vital signs Vital Sign Date Time Temp Pulse Resp B/P (MAP) Pulse Ox O2 Delivery O2 Flow Rate FiO2 01/02/25 12:31 73 20 104/49 (67) 98 50 01/02/25 12:00 Mechanical Ventilator+ 01/02/25 12:00 98.4 209.1 Total Intake and Output 01/01/25 01/01/25 01/02/25 15:00 23:00 07:00 Intake Total 994.958 ml 1726.636 ml 1626.88 ml Output Total 1750 ml 1250 ml Balance 994.958 ml -23.364 ml 376.88 ml medications Current Medications Medications Dose Ordered Sig/Rick Route Start Time Stop Time Status Last Admin Dose Admin Lorazepam 1 mg Q5MINP PRN IV 12/18/24 11:00 12/23/24 08:43 1 MG Midazolam HCl 50 ml @ 1 mls/hr Q24H IV 12/18/24 21:15 01/02/25 10:44 9 MLS/HR Diagnostic Test (Pha) 1 strip Q6HR 12/19/24 12:00 01/02/25 11:53 1 STRIP Insulin Human Regular FOLLOW SLIDING SCALE Q6HR SC 12/19/24 12:00 Dextrose 50 ml UD IV 12/19/24 10:00 12/22/24 23:25 50 ML Albuterol 2.5 mg Q6HR NEB 12/19/24 18:00 01/02/25 12:30 2.5 MG Ipratropium [place] 0.5 mg Q6HR NEB 12/19/24 18:00 01/02/25 12:30 0.5 MG Pantoprazole Sodium 40 mg DAILY IV 12/21/24 10:00 01/02/25 10:18 40 MG Piperacillin Sod/ Tazobactam Sod 100 ml @ 25 mls/hr Q6HR IV 12/21/24 12:00 01/02/25 11:53 25 MLS/HR Polyethylene Glycol 17 gm DAILY PO 12/22/24 10:00 01/02/25 10:18 17 GM Docusate Sodium 100 mg BID GT 12/22/24 10:00 01/02/25 10:16 100 MG Thiamine HCl 100 mg DAILY IV 12/24/24 10:00 01/02/25 10:17 100 MG Folic Acid 1 mg/ Dextrose 50.2 ml @ 200.8 mls/ hr DAILY INJ 12/24/24 10:00 01/02/25 10:17 200.8 MLS/HR Propofol 100 ml @ 4.311 mls/ hr [id number] IV 12/24/24 04:00 01/02/25 13:26 43.11 MLS/HR Sodium Chloride 10 ml QSHIFT@10,22 IV 12/24/24 22:00 01/02/25 10:18 10 ML Vancomycin HCl 0 ml @ 0 mls/hr UD IV 12/27/24 16:45 Enteral Nutritional Formula 1,000 ml 40ML/HR GT 12/27/24 16:45 12/28/24 02:01 1,000 ML Lactulose 15 ml DAILY PO 12/28/24 10:00 01/02/25 10:18 15 ML Fentanyl Citrate 250 ml @ 2.5 mls/hr Q24H IV 12/28/24 02:30 01/02/25 10:56 22.5 MLS/HR Furosemide 40 mg DAILY IV 12/30/24 10:00 01/02/25 10:18 40 MG Enoxaparin Sodium 130 mg Q12HR SC 12/30/24 22:00 01/02/25 10:18 130 MG Vancomycin HCl 200 ml @ 200 mls/hr Q6H IV 12/30/24 20:00 01/02/25 08:35 200 MLS/HR Levetiracetam 750 mg/Dextrose 107.5 ml @ 430 mls/hr BID IV 12/30/24 22:00 01/02/25 10:21 430 MLS/HR Acetaminophen 625 mg Q8HPRN PRN GT 12/31/24 16:00 01/02/25 01:21 625 MG laboratory and microbiology Laboratory Tests 01/02/25 02:45 Test 01/02/25 02:45 Range/Units Serum Glucose 94 74-106 mg/dL Assessment/Plan [employer] rounds Impression Acute hypoxemic respiratory failure ? Aspiration pneumonia Substance abuse Seizures Patient seen and examined in ICU Events On mechanical ventilation S/p intubation PEEP 12, FiO2 50% Labs and imaging reviewed ABG reviewed pH 7.37, pCO2 26, pO2 92 Management Vent support Titrate to maintain sats 90% or above Sedation for vent synchrony Okay to use Precedex as needed Antibiotics for ? aspiration pneumonia Okay to de-escalate Bronchodilators Monitor renal function Monitor electrolytes Supplement as needed Pressors as needed for hemodynamic support To maintain a mean arterial pressure of 65 mmHg Antiepileptics as ordered DVT prophylaxis Critical care time 35 minutes Dietary Evaluation Review Comments: 1) Continue TPN to meet at least 75% estimated needs 2) TF Vital High Protein @ 60ml/hr(goal) with current rate of propofol. TF at goal volume together with propofol provides 2471 kcal (100% eenrgy needs) & 126 gm protein (100% protein needs) 3) Monitor TPN tolerance, lab values, I/O, wt trend Expected Outcomes/Goals: To meet >75% estimated needs Fu 2-3 days Plan discussed with: Other (Rn) LI DUFFY MD Jan 02, 2025 13:37
--- NOTE | 2025-01-02 16:37 | DVH ---
Exam: XY KUB ABDOMEN SINGLE VIEW Indication: CONSTIPATION Comparison: XY KUB ABDOMEN SINGLE VIEW on DOS: 12/31/24 Technique: 2 radiographic views of the abdomen. Findings: Enteric catheter in satisfactory position. Nonspecific bowel-gas pattern. There is no definite evidence for pneumoperitoneum. No abnormal calcifications noted. Impression: Nonspecific bowel-gas pattern.
--- NOTE | 2025-01-02 21:50 | DVHPN2 ---
Progress Note - Dictate Date Seen: Jan 02, 2025 Medical Necessity Reason Pt with a Central, PICC or Fol: Yes The following are medically ne: Reed Catheter Reason for reed catheter: Strict I&O Subjective Mr. Perry is a 24 years old right-handed gentleman with a history of hypertension, pain syndrome, substance abuse, he was admitted to the [facility] on 12/17/2024 for new onset seizure activity. I have seen and examined the patient, discussed with his nurses. He is not responsive to painful stimuli but he moves the arms during oral care otherwise no spontaneous movement Fentanyl 225 mcg/hour, Versed 9 mg/hour, propofol 50 mcg/minute, FiO2: 50% Urinalysis, 12/17/2024: Unremarkable Urine drug screening, 12/17/2024: Benzo Valproic acid, 12/17/2024: 22.1 Plasma alcohol, 12/17/2024: <3 ABG, 12/18/2024: Respiratory acidosis, 12/20/2024: Acidosis, 12/22/2024: Hypoxia, 12/24/2024: Hypoxia, carbon dioxide retention, 12/25/2024: Hypoxia, carbon dioxide retention, 12/29/2024: Hypoxia, carbon dioxide retention WBC/HB/PLT/MCV, 12/20/2024: 8/12.4/233/90.4 CMP 12/18/2024: Unremarkable TBI/AST/ALT/AP, 12/20/2024: 0.7/44/45/143 EEG, 12/19/2019 10/26/24 13:15: Normal EEG, 12/23/2024: Moderately abnormal EEG Bronchoscopy 01/12/25: There were copious blood tinged secretions in the airways bilaterally Chest x-ray 12/18/2024: Endotracheal tube 0.7 cm above the rogers. Nasogastric tube in the proximal stomach Chest x-ray, 12/27/2024: 1. Stable mild multifocal bilateral pulmonary airspace disease, most notably at the lung bases. 2. Lines and tubes unchanged Chest x-ray, 12/29/2024: 1. Stable cardiomegaly, bilateral pleural effusions and moderate diffuse increased prominence of the pulmonary vasculature. 2. Right basilar pulmonary airspace disease. 3. Interval retraction of endotracheal tube as above. Remaining lines and tubes unchanged CT head, 12/17/2024: No evidence of acute intracranial abnormality. If symptoms persist, consider MRI for further evaluation MR head, 12/21/2024: No evidence of acute infarction, intracranial hemorrhage, mass effect or hydrocephalus. No evidence of mesial temporal sclerosis. Pansinusitis. Prominent bilateral cervical lymph nodes. This can be further evaluated with ultrasound vital signs Vital Sign Date Time Temp Pulse Resp B/P (MAP) Pulse Ox O2 Delivery O2 Flow Rate FiO2 01/02/25 21:42 110/54 01/02/25 20:22 68 20 99 50 01/02/25 18:45 98.6 209.5 01/02/25 18:00 Mechanical Ventilator+ Total Intake and Output 01/01/25 01/01/25 01/02/25 15:00 23:00 07:00 Intake Total 994.958 ml 1726.636 ml 1626.88 ml Output Total 1750 ml 1250 ml Balance 994.958 ml -23.364 ml 376.88 ml medications Current Medications Medications Dose Ordered Sig/Rick Route Start Time Stop Time Status Last Admin Dose Admin Lorazepam 1 mg Q5MINP PRN IV 12/18/24 11:00 12/23/24 08:43 1 MG Midazolam HCl 50 ml @ 1 mls/hr Q24H IV 12/18/24 21:15 01/02/25 20:35 9 MLS/HR Diagnostic Test (Pha) 1 strip Q6HR 12/19/24 12:00 01/02/25 17:39 1 STRIP Insulin Human Regular FOLLOW SLIDING SCALE Q6HR SC 12/19/24 12:00 Dextrose 50 ml UD IV 12/19/24 10:00 12/22/24 23:25 50 ML Albuterol 2.5 mg Q6HR NEB 12/19/24 18:00 01/02/25 18:43 2.5 MG Ipratropium [place] 0.5 mg Q6HR NEB 12/19/24 18:00 01/02/25 18:43 0.5 MG Pantoprazole Sodium 40 mg DAILY IV 12/21/24 10:00 01/02/25 10:18 40 MG Piperacillin Sod/ Tazobactam Sod 100 ml @ 25 mls/hr Q6HR IV 12/21/24 12:00 01/02/25 17:39 25 MLS/HR Polyethylene Glycol 17 gm DAILY PO 12/22/24 10:00 01/02/25 10:18 17 GM Docusate Sodium 100 mg BID GT 12/22/24 10:00 01/02/25 20:37 100 MG Thiamine HCl 100 mg DAILY IV 12/24/24 10:00 01/02/25 10:17 100 MG Folic Acid 1 mg/ Dextrose 50.2 ml @ 200.8 mls/ hr DAILY INJ 12/24/24 10:00 01/02/25 10:17 200.8 MLS/HR Propofol 100 ml @ 4.311 mls/ hr [id number] IV 12/24/24 04:00 01/02/25 20:36 43.11 MLS/HR Sodium Chloride 10 ml QSHIFT@10,22 IV 12/24/24 22:00 01/02/25 21:41 10 ML Vancomycin HCl 0 ml @ 0 mls/hr UD IV 12/27/24 16:45 Enteral Nutritional Formula 1,000 ml 40ML/HR GT 12/27/24 16:45 01/02/25 21:43 1,000 ML Lactulose 15 ml DAILY PO 12/28/24 10:00 01/02/25 10:18 15 ML Fentanyl Citrate 250 ml @ 2.5 mls/hr Q24H IV 12/28/24 02:30 01/02/25 21:42 22.5 MLS/HR Furosemide 40 mg DAILY IV 12/30/24 10:00 01/02/25 10:18 40 MG Enoxaparin Sodium 130 mg Q12HR SC 12/30/24 22:00 01/02/25 20:37 130 MG Vancomycin HCl 200 ml @ 200 mls/hr Q6H IV 12/30/24 20:00 01/02/25 20:37 200 MLS/HR Levetiracetam 750 mg/Dextrose 107.5 ml @ 430 mls/hr BID IV 12/30/24 22:00 01/02/25 20:38 430 MLS/HR Acetaminophen 625 mg Q8HPRN PRN GT 12/31/24 16:00 01/02/25 01:21 625 MG objective The patient is well-nourished and well-developed with no distress. The patient is intubated MENTAL STATUS: Subjective CRANIAL NERVES: Pupils are equal, round and nonreactive, small. There are corneal reflexes and doll's eyes phenomenon. No signs of facial weakness. There are gagging or coughing reflexes SENSATION: Responses to pain stimuli. MOTOR: Normal tone in the upper and lower extremity. Normal muscle bulk. No fasciculations. Spontaneous movement in the arms and the legs REFLEXES: Deep tendon reflexes are symmetrical. No pathological reflexes. CEREBELLAR/COORDINATION: Deferred GAIT/STATION: deferred laboratory and microbiology Laboratory Tests 01/02/25 02:45 Test 01/02/25 02:45 Range/Units Serum Glucose 94 74-106 mg/dL Problem List Come Metabolic encephalopathy Hypoxic encephalopathy Toxic encephalopathy ? Status epileptics New onset seizure, status epileptics Likely secondary to substance abuse Rule out epileptic seizure or other acute symptomatic seizure The activity witnessed on 12/23/2024 was not typical to seizure, likely myoclonus Substance abuse ? Depression Respiratory failure/hypoxia Pneumonia Assessment/Plan Monitoring Supportive treatment Telemetry Follow-up lab Follow up EEG ICU care Stabilize vitals/pressor drip Respiratory support/vent management Ativan for seizure breakthrough Keppra 750 mg IV b.i.d. , he may not need preventive seizure treatment Need history from him directly Consider tele psych consultation Re: The previous substance abuse later More recommendation per clinical course This medical document was created using an electronic medical record system with [employer] computerized dictation system. Although this document has been carefully reviewed, there may still be some phonetic and typographical errors. These areas are purely typographical due to imperfections of the software programs, and do not reflect any compromise in the patient's medical care. Prognosis guarded Dietary Evaluation Review Comments: 1) Continue TPN to meet at least 75% estimated needs 2) TF Vital High Protein @ 60ml/hr(goal) with current rate of propofol. TF at goal volume together with propofol provides 2471 kcal (100% eenrgy needs) & 126 gm protein (100% protein needs) 3) Monitor TPN tolerance, lab values, I/O, wt trend Expected Outcomes/Goals: To meet >75% estimated needs Fu 2-3 days Plan discussed with: BONNY Biggs MD Jan 02, 2025 21:50
[2025-01-03] VITALS (100 sets, daily range): BP systolic 97–129; BP diastolic 45–71; PULSE 60–93; RESP 17–33; TEMP 97.9–99; O2SAT 94–100
[2025-01-03 03:47] LABS: Anion Gap 11 (5-15); Calcium 9.4 mg/dL (8.7-10.4); Carbon Dioxide 28 mmol/L (20-31); Chloride 102 mmol/L (98-107); Sodium 141 mmol/L (136-145)
[2025-01-03 03:50] LABS: Potassium 3.3 mmol/L (3.5-5.1)
[2025-01-03 03:53] LABS: BUN/Creatinine Ratio 24.4 (10.0-20.0); Blood Urea Nitrogen 10 mg/dL (9-23); Glucose 91 mg/dL (74-106)
[2025-01-03 03:57] LABS: Hematocrit 29.8 % (41.0-53.0); Hemoglobin 10.4 g/dL (13.5-17.5); Mean Corpuscular Hemoglobin 31.0 pg (28.0-32.0); Mean Corpuscular Volume 88.5 fL (80.0-100.0); Nucleated Red Blood Cells % 0.0 %
[2025-01-03] MEDS: POTASSIUM CHL 20MEQ/100ML 100 ML IV ONE (04:59)
--- NOTE | 2025-01-03 05:29 | DVH ---
CHEST RADIOGRAPH Indication: INTUBATED Technique: Single frontal view of the chest was obtained COMPARISON: XY CHEST PORTABLE on DOS: 01/02/25, XY CHEST PORTABLE on DOS: 01/01/25, XY CHEST PORTABLE o n DOS: 12/31/24, XY CHEST PORTABLE on DOS: 12/31/24, XY CHEST PORTABLE on DOS: 12/30/24 FINDINGS: Lines and Tubes: Unchanged. Lungs: Mild interval progression in right perihilar pulmonary airspace disease. Stable appearing maile ateral pleural effusions. No pneumothorax. Cardiomediastinal contours: Unremarkable Bones: Unremarkable IMPRESSION: 1. Mild interval progression in right perihilar pulmonary airspace disease. 2. Stable small bilateral pleural effusions. 3. Lines and tubes unchanged.
[2025-01-03 07:32] LABS: Base Excess 2.5 mmol/L (-2.0-3.0)
--- NOTE | 2025-01-03 11:10 | DVHPN2 ---
Progress Note - Dictate Date Seen: Jan 03, 2025 Medical Necessity Reason Pt with a Central, PICC or Fol: Yes The following are medically ne: Reed Catheter Reason for reed catheter: Strict I&O Subjective Mr. Perry is a 24 years old right-handed gentleman with a history of hypertension, pain syndrome, substance abuse, he was admitted to the [facility] on 12/17/2024 for new onset seizure activity. I have seen and examined the patient, discussed with his nurses. Mother in the room. He is responsive to painful stimuli, respiration failure is better Fentanyl 225 mcg/hour, Versed 9 mg/hour, propofol 50 mcg/minute, FiO2: 30% Urinalysis, 12/17/2024: Unremarkable Urine drug screening, 12/17/2024: Benzo Valproic acid, 12/17/2024: 22.1 Plasma alcohol, 12/17/2024: <3 ABG, 12/18/2024: Respiratory acidosis, 12/20/2024: Acidosis, 12/22/2024: Hypoxia, 12/24/2024: Hypoxia, carbon dioxide retention, 12/25/2024: Hypoxia, carbon dioxide retention, 12/29/2024: Hypoxia, carbon dioxide retention WBC/HB/PLT/MCV, 12/20/2024: 8/12.4/233/90.4 CMP 12/18/2024: Unremarkable TBI/AST/ALT/AP, 12/20/2024: 0.7/44/45/143 EEG, 12/19/2019 10/26/24 13:15: Normal EEG, 12/23/2024: Moderately abnormal EEG Bronchoscopy 01/12/25: There were copious blood tinged secretions in the airways bilaterally Chest x-ray 12/18/2024: Endotracheal tube 0.7 cm above the rogers. Nasogastric tube in the proximal stomach Chest x-ray, 12/27/2024: 1. Stable mild multifocal bilateral pulmonary airspace disease, most notably at the lung bases. 2. Lines and tubes unchanged Chest x-ray, 12/29/2024: 1. Stable cardiomegaly, bilateral pleural effusions and moderate diffuse increased prominence of the pulmonary vasculature. 2. Right basilar pulmonary airspace disease. 3. Interval retraction of endotracheal tube as above. Remaining lines and tubes unchanged CT head, 12/17/2024: No evidence of acute intracranial abnormality. If symptoms persist, consider MRI for further evaluation MR head, 12/21/2024: No evidence of acute infarction, intracranial hemorrhage, mass effect or hydrocephalus. No evidence of mesial temporal sclerosis. Pansinusitis. Prominent bilateral cervical lymph nodes. This can be further evaluated with ultrasound vital signs Vital Sign Date Time Temp Pulse Resp B/P (MAP) Pulse Ox O2 Delivery O2 Flow Rate FiO2 01/03/25 10:00 30 01/03/25 10:00 23 96 Mechanical Ventilator+ 01/03/25 10:00 81 01/03/25 09:39 120/57 (78) 01/03/25 09:15 98.2 208.8 Total Intake and Output 01/02/25 01/02/25 01/03/25 15:00 23:00 07:00 Intake Total 1054.58 ml 1724.88 ml 1501.88 ml Output Total 2250 ml 1600 ml Balance 1054.58 ml -525.12 ml -98.12 ml medications Current Medications Medications Dose Ordered Sig/Rick Route Start Time Stop Time Status Last Admin Dose Admin Lorazepam 1 mg Q5MINP PRN IV 12/18/24 11:00 12/23/24 08:43 1 MG Midazolam HCl 50 ml @ 1 mls/hr Q24H IV 12/18/24 21:15 01/03/25 06:43 9 MLS/HR Diagnostic Test (Pha) 1 strip Q6HR 12/19/24 12:00 01/03/25 05:01 1 STRIP Insulin Human Regular FOLLOW SLIDING SCALE Q6HR SC 12/19/24 12:00 Dextrose 50 ml UD IV 12/19/24 10:00 12/22/24 23:25 50 ML Albuterol 2.5 mg Q6HR NEB 12/19/24 18:00 01/03/25 06:11 2.5 MG Ipratropium [place] 0.5 mg Q6HR NEB 12/19/24 18:00 01/03/25 06:11 0.5 MG Pantoprazole Sodium 40 mg DAILY IV 12/21/24 10:00 01/03/25 08:49 40 MG Piperacillin Sod/ Tazobactam Sod 100 ml @ 25 mls/hr Q6HR IV 12/21/24 12:00 01/03/25 05:00 25 MLS/HR Polyethylene Glycol 17 gm DAILY PO 12/22/24 10:00 01/03/25 08:48 17 GM Docusate Sodium 100 mg BID GT 12/22/24 10:00 01/03/25 08:49 100 MG Thiamine HCl 100 mg DAILY IV 12/24/24 10:00 01/03/25 08:49 100 MG Folic Acid 1 mg/ Dextrose 50.2 ml @ 200.8 mls/ hr DAILY INJ 12/24/24 10:00 01/03/25 08:55 200.8 MLS/HR Propofol 100 ml @ 4.311 mls/ hr [id number] IV 12/24/24 04:00 01/03/25 08:55 43.11 MLS/HR Sodium Chloride 10 ml QSHIFT@10,22 IV 12/24/24 22:00 01/03/25 08:49 10 ML Vancomycin HCl 0 ml @ 0 mls/hr UD IV 12/27/24 16:45 Enteral Nutritional Formula 1,000 ml 40ML/HR GT 12/27/24 16:45 01/02/25 21:43 1,000 ML Lactulose 15 ml DAILY PO 12/28/24 10:00 01/03/25 08:48 15 ML Fentanyl Citrate 250 ml @ 2.5 mls/hr Q24H IV 12/28/24 02:30 01/03/25 08:04 22.5 MLS/HR Furosemide 40 mg DAILY IV 12/30/24 10:00 01/03/25 08:49 40 MG Enoxaparin Sodium 130 mg Q12HR SC 12/30/24 22:00 01/03/25 08:50 130 MG Vancomycin HCl 200 ml @ 200 mls/hr Q6H IV 12/30/24 20:00 01/03/25 08:13 200 MLS/HR Levetiracetam 750 mg/Dextrose 107.5 ml @ 430 mls/hr BID IV 12/30/24 22:00 01/03/25 10:30 430 MLS/HR Acetaminophen 625 mg Q8HPRN PRN GT 12/31/24 16:00 01/02/25 01:21 625 MG objective The patient is well-nourished and well-developed with no distress. The patient is intubated MENTAL STATUS: Subjective CRANIAL NERVES: Pupils are equal, round and nonreactive, small. There are corneal reflexes and doll's eyes phenomenon. No signs of facial weakness. There are gagging or coughing reflexes SENSATION: Responses to pain stimuli. MOTOR: Normal tone in the upper and lower extremity. Normal muscle bulk. No fasciculations. Spontaneous movement in the arms and the legs REFLEXES: Deep tendon reflexes are symmetrical. No pathological reflexes. CEREBELLAR/COORDINATION: Deferred GAIT/STATION: deferred laboratory and microbiology Laboratory Tests 01/03/25 03:03 Test 01/03/25 03:03 Range/Units Serum Glucose 91 74-106 mg/dL Problem List Come Metabolic encephalopathy Hypoxic encephalopathy Toxic encephalopathy ? Status epileptics New onset seizure, status epileptics Likely secondary to substance abuse Rule out epileptic seizure or other acute symptomatic seizure The activity witnessed on 12/23/2024 was not typical to seizure, likely myoclonus Substance abuse ? Depression Respiratory failure/hypoxia Pneumonia Assessment/Plan Monitoring Supportive treatment Telemetry Follow-up lab Follow up EEG ICU care Stabilize vitals/pressor drip Respiratory support/vent management Ativan for seizure breakthrough Keppra 750 mg IV b.i.d. , he may not need preventive seizure treatment Need history from him directly Consider tele psych consultation Re: The previous substance abuse later More recommendation per clinical course This medical document was created using an electronic medical record system with [employer] computerized dictation system. Although this document has been carefully reviewed, there may still be some phonetic and typographical errors. These areas are purely typographical due to imperfections of the software programs, and do not reflect any compromise in the patient's medical care. Prognosis guarded Dietary Evaluation Review Comments: 1) Continue TPN to meet at least 75% estimated needs 2) TF Vital High Protein @ 60ml/hr(goal) with current rate of propofol. TF at goal volume together with propofol provides 2471 kcal (100% eenrgy needs) & 126 gm protein (100% protein needs) 3) Monitor TPN tolerance, lab values, I/O, wt trend Expected Outcomes/Goals: To meet >75% estimated needs Fu 2-3 days Plan discussed with: Other Critical Care Time(min): 30 BONNY PEREZ MD Jan 03, 2025 11:10
[2025-01-03] MEDS: IOHEXOL 350 MG/ML 100ML IJ ONE (13:07)
--- NOTE | 2025-01-03 14:41 | DVH ---
CTA Chest with intravenous contrast INDICATION: RULE OUT PE COMPARISON: None TECHNIQUE: Multidetector spiral CTA of the chest was performed of the chest with intravenous contrast . PULMONARY ANGIOGRAPHY PROTOCOL was utilized using a bolus-tracking technique centered on the main p ulmonary artery. Axial, coronal and sagittal multiplanar and MIP reformats were performed. CONTRAST: Type of contrast: Omni 350 Contrast injected: 100 ml Radiation dose : Chest: CTDI volume is 29 mGy. Dose-length product is 963 mGy*cm The dose indicators for CT are the volume computed Tomography (CT) dose Index (CTDIvol) and the dose Length product (DLP), and are measured in units of mGy and mGy-cm, respectively. These indicators are not patient dose, but values generated from the CT scanner acquisition factors. The report includes radiation exposure data for exposures received during this examination. Findings: Limited by motion and poor contrast opacification of the pulmonary arteries. Pulmonary artery: No large central or large segmental pulmonary embolism. Lower neck: Endotracheal tube and nasogastric tube in place. Lungs: Patchy bibasilar consolidation. Heart/Vascular Structures: Normal heart size. No pericardial effusion. Lymph Nodes: Subcentimeter mediastinal and hilar lymph nodes. Pleura: Trace bilateral pleural effusions. Musculoskeletal: No acute osseous abnormality. Soft tissues: Normal. Upper abdomen: Limited portions of the upper abdomen are unremarkable. IMPRESSION: 1. Limited by motion and poor contrast opacification of the pulmonary arteries. No large central pulm onary embolism. 2. Trace bilateral pleural effusions with associated bibasilar consolidation. Clinical correlation a nd continued follow-up is recommended. HS:Y
[2025-01-03] MEDS: GOLYTELY 4L KIT PO ONE (19:42)
--- NOTE | 2025-01-03 21:07 | DVHPNRES ---
Progress Note Date Seen: Jan 03, 2025 Resident Creating Document: STUART SAGASTUME RESIDENT Medical Necessity Reason Pt with a Central, PICC or Fol: Yes The following are medically ne: Reed Catheter Reason for reed catheter: Strict I&O Subjective Review of Systems Patient is a 24-year-old male with past medical history of hypertension, chronic pain, substance abuse disorder, who was brought in due to new onset seizures. Patient is sedated and mechanically ventilated, history was obtained from patient's mother Ms. Sabillon via telephone. According to the patient's mother, patient has been abusing laughing gas heavily for some time, patient went to by laughing gas on Friday12/15/2024 and used it with his friend where according to the friend patient consumed most of the canister. Patient's mom took him to the rehab on 12/16/2024 where he had a seizure and was taken to the hospital and subsequently discharged back to the rehab facility. On patient again started having seizures which is when he was taken to the hospital again and was subsequently intubated. Patient reported saying he is prescribed Depakote but he has been noncompliant, serum valproic levels were below therapeutic range at 22.1 Past surgical history: Denies Smoking: Uses tobacco vaporizer pen heavily daily Alcohol: Remote history of heavy alcohol use Drugs: Mother is unsure, however, notes he may have history of cocaine abuse and MDMA abuse Previously patient was living in a rented home with a roommate, for the last 1 week was living with mother. Review of systems could not be completed due to patient being sedated and mechanically ventilated. 12/18- initially patient is stable on Keppra 500 b.i.d. but on 12/18 a.m. and into p.m. patient has multiple rapid response consecutively for breakthrough seizures. First rapid response headed by Dr. Grigsby where multiple rounds of Ativan and Keppra load 1 g was given.. Thereafter patient has multiple other episodes between page patient is able to come back to baseline following commands. Finally patient has another rapid response for seizure breakthrough had a proximally 340 p.m. where [facility]y is consulted to have expert advice to control seizures. Plan is made to complete Keppra load to maximum. Second-line plan is for valproate. However on a 3rd rapid response at approximately 5 p.m. patient goes on to seizure without returning to baseline for most 45 minutes. Although vitals were stable this is classified now status epilepticus and per guidance from tele neuro intubation needed with propofol. Patient is intubated approximately 530 p.m. there is moderate difficulty due to patient's morbid obesity. Procedure note for details, appreciate RT. Once intubation medications wearing off patient is very difficult to control seizures. Advancing dosing of propofol and Versed are required to maintain RASS of-3 to -4. Levophed is required given propofol causing hypotension. Right IJ cvc inserted also with difficulty due to short and obese neck, appreciate resident physicians. OG and urinary Reed placement w some difficulty, appreciate nursing. Placement of OG, right IJ CBC, ETT confirmed by chest x- ray. Patient care level advanced to ICU. We will maintain patient at high levels of sedation until neurology evaluation in house. 12/19-patient remains on multiple sedatives control seizures. Now in ICU room 103.. Patient is getting Versed 15, propofol 40, fentanyl 250, Levophed to. Maintaining RASS goal negative for. Patient is ventilated a.c. 20/550/45%/5.0. Vitals mostly stable. Heart rate is on the bradycardia side in 50s. Blood pressure stable with Levophed to maps low 70s. We will continue RASS-4 until neurology review tomorrow in house. Patient has been NPO for few days because of seizures, no bowel sounds today. Out of caution we will do TPN for today deferring enteral feeds until patient is on lower sedation. 12/21/24: Patient seen and examined at bedside. Noted to have some fevers and mild increase in leukocytosis, started on IV Zosyn. Mom and sister at bedside, details of illness explained, all questions answered and concerns addressed. 12/22/24: Patient seen and examined, plan to cpap trial tomorrow. 12/23/24: Overnight when Versed was decreased, patient was noted to have 3 seizures and then another seizure in the a.m., resumed Versed at 14 micrograms/hour. CPAP trial could not be completed. Added vancomycin. 12/24/2024: No further seizures. When down on fentanyl to 275, Versed 213, off of propofol right now. Patient is somewhat responsive and we will periodically move extremities. Chest x-ray showed slight improvement in bilateral effusions and stable airspace disease. Discontinued vancomycin. Creatinine kinase decreased to 1263. 12/25/24 -no significant changes. We will repeat a CK level. PICC line dislodged he will be replaced over guidewire. Electrolyte replacements.. We will maintain in deep sedation until week day for re-evaluation by Neurology for recurrent seizures. Vital signs are stable. Patient currently on fentanyl, Versed 8, propofol 30, fentanyl 200.. Patient is getting feeds Vital HP. Urine output dark brown. Ventilated a.c. 20/550/45%/5.0.. Patient is still having fevers and has required increasing amounts of oxygen saturation to maintain saturates. We will repeat blood cultures and sputum cultures, appreciate respiratory and obtaining that. 12/26/2024.-pulmonology plans for bronch today. ABG good. X-ray pending. We will continue sedatives given primary team's directives. Fentanyl 150 Versed 7 propofol 45. Clinimix,. Continuing IV antibiotics. Urine output adequate. Vitals stable no vasopressors map more than 75. On mechanical ventilation. A.c./20/5 50/50%/5.0.. We will continue sedation and sedation vacation trial tomorrow morning when primary returns. Update--after bronch we will try sedation vacation maximum 3-4 hours if he is doing well. Continue sedatives if any seizure activity is noted. We will try another sedation vacation tomorrow morning for primary to evaluate. 12/27/24: resumed vancomycin and tube feedings, started lactulose. increased PEEP to 8. went down on fentanyl to 150, versed 7 and prop 45. 12/28/2024: Continues to have low-grade fever, on FiO2 100% saturating in the early 90s, peak pressure 29 mmHg. Scheduled for repeat bronchoscopy today. 12/29/24: patient continues to have low-grade fevers, Tmax overnight 99.9. started on IV lasix 40mg daily. Detailed discussion held with patient's mother Ms. Sabillon, cousin and cousins at bedside. Possibility of trach was discussed owing to today being patients day 12 of intubation. 12/30/2024: Chest x-ray showed no change in pulmonary edema or bilateral pleural effusion, ordered CT angiography chest, however, patient unstable for transfer as FiO2 100%, started patient on therapeutic Lovenox. 12/31/24: SpO2 improving today, averaging at 97% on FiO2 100%. continues to have low grade fever. continue therapeutic lovenox. Increased PEEP from 10 to 12 01/01/25: decreased FiO2 to 30%, PEEP 10. CXR showing mild interval progression in R perihilar pulmonary airspace disease Objective vital signs Vital Sign Date Time Temp Pulse Resp B/P (MAP) Pulse Ox O2 Delivery O2 Flow Rate FiO2 01/03/25 20:30 99.0 70 20 117/59 (78) 97 210.2 01/03/25 20:04 30 01/03/25 20:00 Mechanical Ventilator+ Total Intake and Output 01/02/25 01/02/25 01/03/25 15:00 23:00 07:00 Intake Total 1054.58 ml 1724.88 ml 1501.88 ml Output Total 2250 ml 1600 ml Balance 1054.58 ml -525.12 ml -98.12 ml medications Current Medications Medications Dose Ordered Sig/Rick Route Start Time Stop Time Status Last Admin Dose Admin Lorazepam 1 mg Q5MINP PRN IV 12/18/24 11:00 12/23/24 08:43 1 MG Midazolam HCl 50 ml @ 1 mls/hr Q24H IV 12/18/24 21:15 01/03/25 16:39 9 MLS/HR Diagnostic Test (Pha) 1 strip Q6HR 12/19/24 12:00 01/03/25 17:58 1 STRIP Insulin Human Regular FOLLOW SLIDING SCALE Q6HR SC 12/19/24 12:00 Dextrose 50 ml UD IV 12/19/24 10:00 12/22/24 23:25 50 ML Albuterol 2.5 mg Q6HR NEB 12/19/24 18:00 01/03/25 18:22 2.5 MG Ipratropium [place] 0.5 mg Q6HR NEB 12/19/24 18:00 01/03/25 18:22 0.5 MG Pantoprazole Sodium 40 mg DAILY IV 12/21/24 10:00 01/03/25 08:49 40 MG Piperacillin Sod/ Tazobactam Sod 100 ml @ 25 mls/hr Q6HR IV 12/21/24 12:00 01/03/25 18:32 25 MLS/HR Polyethylene Glycol 17 gm DAILY PO 12/22/24 10:00 01/03/25 08:48 17 GM Docusate Sodium 100 mg BID GT 12/22/24 10:00 01/03/25 08:49 100 MG Thiamine HCl 100 mg DAILY IV 12/24/24 10:00 01/03/25 08:49 100 MG Folic Acid 1 mg/ Dextrose 50.2 ml @ 200.8 mls/ hr DAILY INJ 12/24/24 10:00 01/03/25 08:55 200.8 MLS/HR Propofol 100 ml @ 4.311 mls/ hr [id number] IV 12/24/24 04:00 01/03/25 19:42 43.11 MLS/HR Sodium Chloride 10 ml QSHIFT@10,22 IV 12/24/24 22:00 01/03/25 08:49 10 ML Vancomycin HCl 0 ml @ 0 mls/hr UD IV 12/27/24 16:45 Enteral Nutritional Formula 1,000 ml 40ML/HR GT 12/27/24 16:45 01/02/25 21:43 1,000 ML Lactulose 15 ml DAILY PO 12/28/24 10:00 01/03/25 08:48 15 ML Fentanyl Citrate 250 ml @ 2.5 mls/hr Q24H IV 12/28/24 02:30 01/03/25 18:04 22.5 MLS/HR Furosemide 40 mg DAILY IV 12/30/24 10:00 01/03/25 08:49 40 MG Enoxaparin Sodium 130 mg Q12HR SC 12/30/24 22:00 01/03/25 08:50 130 MG Vancomycin HCl 200 ml @ 200 mls/hr Q6H IV 12/30/24 20:00 01/03/25 19:41 200 MLS/HR Levetiracetam 750 mg/Dextrose 107.5 ml @ 430 mls/hr BID IV 12/30/24 22:00 01/03/25 10:30 430 MLS/HR Acetaminophen 625 mg Q8HPRN PRN GT 12/31/24 16:00 01/02/25 01:21 625 MG Examination General Appearance: Sedated and mechanically ventilated obese adult. Constricted pupils. Pulmonary/Respiratory: Coarse bilateral breath sounds Cardiovascular/Chest: Tachycardia Peripheral Pulses: 2+ Pedal (R). 2+ Pedal (L) Abdominal Exam: Normal bowel sounds. Soft. normal abdomen, no visible veins, Nontender. No hepatospenomegaly. No masses Lower extremities: Negative lower extremity edema Skin Exam: Normal inspection. Normal color. Dry. warm laboratory and microbiology Laboratory Tests 01/03/25 03:03 Test 01/03/25 03:03 Range/Units Serum Glucose 91 74-106 mg/dL Microbiology Date/Time Source Procedure Growth Status 12/26/24 11:46 Bronchial Washings Gram Stain - Final Complete 12/26/24 11:46 Respiratory Culture - Final Staphylococcus aureus Complete 12/25/24 15:20 Catheter Site Aerobic Culture - Final Staphylococcus epidermidis Complete 12/25/24 10:17 Blood Blood Culture - Final NO GROWTH AFTER 5 DAYS OF INCUBATION. Complete 12/20/24 17:00 Voided Urine Urine Culture - Final Complete Labs and/or images reviewed: Labs reviewed by me, Image(s) reviewed by me Problem List/Assessment/Plan Problem List/Assessment/Plan Neurology # acute likely toxic versus metabolic encephalopathy # new onset? Breakthrough grand mal seizures # medication nonadherence # possible alcohol withdrawal, unable to calculate CIWA # Sedated - Versed 8 - fentanyl 200 - proprofol 50 - serum valproic acid levels below normal 22.1 - IV levetiracetam 1500 mg b.i.d. - IV lorazepam as needed for seizures - head CT: No evidence of acute intracranial abnormality. If symptoms persist, consider MRI for further evaluation. - neurology on board - brain MRI: No evidence of acute infarction, intracranial hemorrhage, mass effect or hydrocephalus. No effects of mesial temporal sclerosis. Pansinusitis. Prominent bilateral cervical lymph nodes. - last seizure 12/23/2024 - brain EEG largely unremarkable - IV banana bag x2, IV thiamine, IV folic acid Cardiovascular # essential hypertension # sepsis secondary to aspiration pneumonia - stopped IV NS at 60 cc/hour Respiratory # Acute hypoxic respiratory failure secondary to intractable seizures # probable aspiration pneumonia, cultures growing MSSA # Ventilator # pulmonary edema # b/l pleural effusion # ?pulmonary embolism - intubated 12/18/2024 - on [facility] vent : VCAC Mode RR 20 TV 550ml, PEEP Of 10 and FiO2 of 90% - ipratropium and albuterol med nebs - CXR: Hypoinflated lungs with bibasilar atelectasis - started on IV Zosyn 12/21/2024 - started IV vancomycin per pharmacy on 12/23/2024, discontinued vancomycin on 12/24/2024 - resumed vancomycin on 12/27/24 - CXR 12/29/24: Stable cardiomegaly, bilateral pleural effusions and moderate diffuse increased prominence of the pulmonary vasculature. Right basilar pulmonary airspace disease. - IV lasix 40mg daily - ordered CT angiography chest - therapeutic Lovenox - ordered repeat lower extremity Doppler GI # transaminitis # Peptic ulcer prophylaxis # vitamin B12 deficiency # constipation, likely slow transit -Pantoprazole 40 mg IV daily - negative hepatitis-B and hepatitis-C - repleted with 1000 mcg B12 - lactulose daily - KUB: Nonobstructive bowel gas pattern. Moderate stool burden. # Reed catheter placed on 12/18/2024 Nephrology # hypernatremia, now improved # hypokalemia, now improved - serum creatinine 2159 on 12/23/2024, 1263 on 12/24/2024 - monitor Infectious disease # aspiration pneumonia # sepsis due to above # right IJ catheter tip (placed on 12/18/2024, removed on 12/24/2024) culture growing staph epidermidis - pancultures - IV Zosyn - IV vancomycin - Tylenol as needed for fever - s/p bronchoscopy x 2 Hem/onc # microcytic anemia, mild - monitor Psychiatry # substance use disorder - we will consider Psychiatry consult once patient is extubated DVT prophylaxis - Lovenox 40 mg subcutaneous daily Nutrition - tube feedings started on 12/21/2024 Lines Right PICC placed on 12/24/24 Left arm 20 gauge placed on 12/17/2024 Drips - Versed 8 - fentanyl 200 - propofol 50 Intubated on 12/18/2024 Bronchoscopy on 12/26/24 Repeat bronchoscopy on 12/28/2024 on [facility] vent : VCAC Mode RR 20 TV 550ml, PEEP Of 10 and FiO2 of 30% Critical care time 86 minutes excluding procedure. Code status discussed greater than 20 minutes: Full CODE STATUS. Plan discussed with Dr. Iqbal Detailed discussion held with patient's mother Ms. Sabillon at bedside. Possibility of trach was discussed owing to today being patients day 14 of intubation. Plan discussed with: Other (mother, RN) My Orders My Orders Orders - STUART SAGASTUME RESIDENT Procedure Category Date Status Time Abg W/ Co-Ox RT 01/03/25 Logged 06:00 Vancomycin,Trough LAB 01/04/25 Verified 13:00 Creatinine LAB 01/04/25 Verified 04:00 Vancomycin Per JADIEL 01/03/25 In Process Pharmacy Protoc 20:00 Complete Blood Count LAB 01/04/25 Verified 04:00 Basic Metabolic Panel LAB 01/04/25 Verified 04:00 Dietary Evaluation Review Comments: 1) Continue TPN to meet at least 75% estimated needs 2) TF Vital High Protein @ 60ml/hr(goal) with current rate of propofol. TF at goal volume together with propofol provides 2471 kcal (100% eenrgy needs) & 126 gm protein (100% protein needs) 3) Monitor TPN tolerance, lab values, I/O, wt trend Expected Outcomes/Goals: To meet >75% estimated needs Fu 2-3 days Date of Service: Jan 03, 2025 Billing Provider: ANTHONY IQBAL MD Common Visit Codes: 90320-DCHRWOIS CARE 30-74 MIN, 04300-GUHHXPLO CARE-EACH +30MIN STUART SAGASTUME Jan 03, 2025 21:07 ANTHONY IQBAL MD Jan 04, 2025 15:30
[2025-01-04] VITALS (106 sets, daily range): BP systolic 102–157; BP diastolic 47–102; PULSE 60–102; RESP 11–30; TEMP 93.7–100.8; O2SAT 90–100
--- NOTE | 2025-01-04 00:07 | DVHEEG2 ---
Neurology EEG Procedural Note Procedural Note EXAM DATE: 01/03/2025 REFERRING DOCTOR: Dr. Perez TECHNIQUE: Eighteen channels of EEG, 2 channels of EOG, and 1 channel of EKG were recorded using the International 10/20 system. CLINICAL DATA: The patient was referred for an EEG evaluation for the evidence of seizure disorder. MEDICATIONS: See chart BACKGROUND ACTIVITY: The record showed diffuse low amplitude theta activity over both hemispheres, that was a few sharply contoured waveform over right hemispheres ACTIVATION: Hyperventilation: Not done Photic Stimulation: Not done Sleep: Nonresponsiveness IMPRESSION: This is a remarkably abnormal EEG, this EEG seen in severe cerebral dysfunction due to metabolic/hypoxic encephalopathy or medication effects, please correlate clinically The sharply contoured waveform over right hemispheres are not unequivocally considered epileptiform in nature The EKG channel showed a regular heart rate of 72/[place] [address] BONNY PEREZ MD Jan 04, 2025 00:07
[2025-01-04 03:40] LABS: Anion Gap 11 (5-15); Carbon Dioxide 27 mmol/L (20-31); Chloride 102 mmol/L (98-107); Sodium 140 mmol/L (136-145)
[2025-01-04 03:41] LABS: Calcium 9.6 mg/dL (8.7-10.4)
[2025-01-04 03:42] LABS: Hematocrit 29.7 % (41.0-53.0); Hemoglobin 10.4 g/dL (13.5-17.5); Mean Corpuscular Hemoglobin 31.0 pg (28.0-32.0); Mean Corpuscular Volume 88.5 fL (80.0-100.0); Nucleated Red Blood Cells % 0.0 %
[2025-01-04 03:44] LABS: Potassium 3.4 mmol/L (3.5-5.1)
[2025-01-04 03:46] LABS: BUN/Creatinine Ratio 29.5 (10.0-20.0); Blood Urea Nitrogen 13 mg/dL (9-23); Glucose 83 mg/dL (74-106)
--- NOTE | 2025-01-04 04:35 | DVH ---
CHEST RADIOGRAPH Indication: intubated Technique: Single frontal view of the chest was obtained COMPARISON: XY CHEST PORTABLE on DOS: 01/03/25, XY CHEST PORTABLE on DOS: 01/02/25, XY CHEST PORTABLE o n DOS: 01/01/25, XY CHEST PORTABLE on DOS: 12/31/24, XY CHEST PORTABLE on DOS: 12/31/24 FINDINGS: Lines and Tubes: Unchanged. Lungs: Stable appearing small bilateral pleural effusions and right basilar pulmonary airspace diseas e. No pneumothorax. Cardiomediastinal contours: Unremarkable Bones: Unremarkable IMPRESSION: 1. Stable right basilar pulmonary airspace disease and bilateral pleural effusions. 2. Lines and tubes unchanged.
[2025-01-04] MEDS: POTASSIUM CHL 20MEQ/100ML 100 ML IV ONE ×2 (06:18→15:38)
[2025-01-04 07:01] LABS: Base Excess 0.7 mmol/L (-2.0-3.0)
--- NOTE | 2025-01-04 10:52 | DVHPN2 ---
Progress Note - Dictate Date Seen: Jan 04, 2025 Medical Necessity Reason Pt with a Central, PICC or Fol: Yes The following are medically ne: Reed Catheter Reason for reed catheter: Strict I&O Subjective Mr. Perry is a 24 years old right-handed gentleman with a history of hypertension, pain syndrome, substance abuse, he was admitted to the [facility] on 12/17/2024 for new onset seizure activity. I have seen and examined the patient, discussed with his nurses. He did not not follow me, but he followed his nurse verbal commands, he is able to move the arms and legs a little bit Fentanyl 110 mcg/hour, Versed 4.5 mg/hour, propofol 25 mcg/minute, FiO2: 30% Urinalysis, 12/17/2024: Unremarkable Urine drug screening, 12/17/2024: Benzo Valproic acid, 12/17/2024: 22.1 Plasma alcohol, 12/17/2024: <3 ABG, 12/18/2024: Respiratory acidosis, 12/20/2024: Acidosis, 12/22/2024: Hypoxia, 12/24/2024: Hypoxia, carbon dioxide retention, 12/25/2024: Hypoxia, carbon dioxide retention, 12/29/2024: Hypoxia, carbon dioxide retention WBC/HB/PLT/MCV, 12/20/2024: 8/12.4/233/90.4 CMP 12/18/2024: Unremarkable TBI/AST/ALT/AP, 12/20/2024: 0.7/44/45/143 EEG, 12/19/2019 10/26/24 13:15: Normal EEG, 12/23/2024: Moderately abnormal EEG Bronchoscopy 01/12/25: There were copious blood tinged secretions in the airways bilaterally Chest x-ray 12/18/2024: Endotracheal tube 0.7 cm above the rogers. Nasogastric tube in the proximal stomach Chest x-ray, 12/27/2024: 1. Stable mild multifocal bilateral pulmonary airspace disease, most notably at the lung bases. 2. Lines and tubes unchanged Chest x-ray, 12/29/2024: 1. Stable cardiomegaly, bilateral pleural effusions and moderate diffuse increased prominence of the pulmonary vasculature. 2. Right basilar pulmonary airspace disease. 3. Interval retraction of endotracheal tube as above. Remaining lines and tubes unchanged CT head, 12/17/2024: No evidence of acute intracranial abnormality. If symptoms persist, consider MRI for further evaluation MR head, 12/21/2024: No evidence of acute infarction, intracranial hemorrhage, mass effect or hydrocephalus. No evidence of mesial temporal sclerosis. Pansinusitis. Prominent bilateral cervical lymph nodes. This can be further evaluated with ultrasound vital signs Vital Sign Date Time Temp Pulse Resp B/P (MAP) Pulse Ox O2 Delivery O2 Flow Rate FiO2 01/04/25 10:23 144/83 01/04/25 09:09 78 20 97 30 01/04/25 07:15 98.1 208.6 01/04/25 06:00 Mechanical Ventilator+ Total Intake and Output 01/03/25 01/03/25 01/04/25 15:00 23:00 07:00 Intake Total 1079.58 ml 1246.88 ml 2022.27 ml Output Total 2350 ml 1600 ml Balance 1079.58 ml -1103.12 ml 422.27 ml medications Current Medications Medications Dose Ordered Sig/Rick Route Start Time Stop Time Status Last Admin Dose Admin Lorazepam 1 mg Q5MINP PRN IV 12/18/24 11:00 12/23/24 08:43 1 MG Midazolam HCl 50 ml @ 1 mls/hr Q24H IV 12/18/24 21:15 01/04/25 06:18 9 MLS/HR Diagnostic Test (Pha) 1 strip Q6HR 12/19/24 12:00 01/04/25 06:19 1 STRIP Insulin Human Regular FOLLOW SLIDING SCALE Q6HR SC 12/19/24 12:00 Dextrose 50 ml UD IV 12/19/24 10:00 12/22/24 23:25 50 ML Albuterol 2.5 mg Q6HR NEB 12/19/24 18:00 01/04/25 06:02 2.5 MG Ipratropium [place] 0.5 mg Q6HR NEB 12/19/24 18:00 01/04/25 06:02 0.5 MG Pantoprazole Sodium 40 mg DAILY IV 12/21/24 10:00 01/04/25 10:23 40 MG Piperacillin Sod/ Tazobactam Sod 100 ml @ 25 mls/hr Q6HR IV 12/21/24 12:00 01/04/25 06:13 25 MLS/HR Polyethylene Glycol 17 gm DAILY PO 12/22/24 10:00 01/04/25 10:24 17 GM Docusate Sodium 100 mg BID GT 12/22/24 10:00 01/04/25 10:24 100 MG Thiamine HCl 100 mg DAILY IV 12/24/24 10:00 01/04/25 10:24 100 MG Folic Acid 1 mg/ Dextrose 50.2 ml @ 200.8 mls/ hr DAILY INJ 12/24/24 10:00 01/04/25 10:25 200.8 MLS/HR Propofol 100 ml @ 4.311 mls/ hr [id number] IV 12/24/24 04:00 01/04/25 08:36 43.11 MLS/HR Sodium Chloride 10 ml QSHIFT@10,22 IV 12/24/24 22:00 01/04/25 10:23 10 ML Vancomycin HCl 0 ml @ 0 mls/hr UD IV 12/27/24 16:45 Enteral Nutritional Formula 1,000 ml 40ML/HR GT 12/27/24 16:45 01/02/25 21:43 1,000 ML Lactulose 15 ml DAILY PO 12/28/24 10:00 01/04/25 10:24 15 ML Fentanyl Citrate 250 ml @ 2.5 mls/hr Q24H IV 12/28/24 02:30 01/04/25 04:24 22.5 MLS/HR Furosemide 40 mg DAILY IV 12/30/24 10:00 01/04/25 10:23 40 MG Enoxaparin Sodium 130 mg Q12HR SC 12/30/24 22:00 01/04/25 10:25 130 MG Vancomycin HCl 200 ml @ 200 mls/hr Q6H IV 12/30/24 20:00 01/04/25 08:36 200 MLS/HR Levetiracetam 750 mg/Dextrose 107.5 ml @ 430 mls/hr BID IV 12/30/24 22:00 01/03/25 21:53 430 MLS/HR Acetaminophen 625 mg Q8HPRN PRN GT 12/31/24 16:00 01/02/25 01:21 625 MG objective The patient is well-nourished and well-developed with no distress. The patient is intubated MENTAL STATUS: Subjective CRANIAL NERVES: Pupils are equal, round and nonreactive, small. There are corneal reflexes and doll's eyes phenomenon. No signs of facial weakness. There are gagging or coughing reflexes SENSATION: Responses to pain stimuli. MOTOR: Normal tone in the upper and lower extremity. Normal muscle bulk. No fasciculations. Spontaneous movement in the arms and the legs REFLEXES: Deep tendon reflexes are symmetrical. No pathological reflexes. CEREBELLAR/COORDINATION: Deferred GAIT/STATION: deferred laboratory and microbiology Laboratory Tests 01/04/25 02:56 Test 01/04/25 02:56 Range/Units Serum Glucose 83 74-106 mg/dL Problem List Come Metabolic encephalopathy Hypoxic encephalopathy Toxic encephalopathy ? Status epileptics New onset seizure, status epileptics Likely secondary to substance abuse Rule out epileptic seizure or other acute symptomatic seizure The activity witnessed on 12/23/2024 was not typical to seizure, likely myoclonus Substance abuse ? Depression Respiratory failure/hypoxia Pneumonia Improving Assessment/Plan Monitoring Supportive treatment Telemetry Follow-up lab ICU care Stabilize vitals/pressor drip Respiratory support/vent management Ativan for seizure breakthrough Keppra 750 mg IV b.i.d. , he may not need preventive seizure treatment Need history from him directly Consider tele psych consultation Re: The previous substance abuse later More recommendation per clinical course This medical document was created using an electronic medical record system with code-laboration computerized dictation system. Although this document has been carefully reviewed, there may still be some phonetic and typographical errors. These areas are purely typographical due to imperfections of the software programs, and do not reflect any compromise in the patient's medical care. Prognosis guarded Dietary Evaluation Review Comments: 1) Continue TPN to meet at least 75% estimated needs 2) TF Vital High Protein @ 60ml/hr(goal) with current rate of propofol. TF at goal volume together with propofol provides 2471 kcal (100% eenrgy needs) & 126 gm protein (100% protein needs) 3) Monitor TPN tolerance, lab values, I/O, wt trend Expected Outcomes/Goals: To meet >75% estimated needs Fu 2-3 days Plan discussed with: BONNY Biggs MD Jan 04, 2025 10:52
--- NOTE | 2025-01-04 18:12 | DVHPNRES ---
Progress Note Date Seen: Jan 04, 2025 Resident Creating Document: STUART SAGASTUME RESIDENT Medical Necessity Reason Pt with a Central, PICC or Fol: Yes The following are medically ne: Reed Catheter Reason for reed catheter: Strict I&O Subjective Review of Systems Patient is a 24-year-old male with past medical history of hypertension, chronic pain, substance abuse disorder, who was brought in due to new onset seizures. Patient is sedated and mechanically ventilated, history was obtained from patient's mother Ms. Sabillon via telephone. According to the patient's mother, patient has been abusing laughing gas heavily for some time, patient went to by laughing gas on Friday12/15/2024 and used it with his friend where according to the friend patient consumed most of the canister. Patient's mom took him to the rehab on 12/16/2024 where he had a seizure and was taken to the hospital and subsequently discharged back to the rehab facility. On patient again started having seizures which is when he was taken to the hospital again and was subsequently intubated. Patient reported saying he is prescribed Depakote but he has been noncompliant, serum valproic levels were below therapeutic range at 22.1 Past surgical history: Denies Smoking: Uses tobacco vaporizer pen heavily daily Alcohol: Remote history of heavy alcohol use Drugs: Mother is unsure, however, notes he may have history of cocaine abuse and MDMA abuse Previously patient was living in a rented home with a roommate, for the last 1 week was living with mother. Review of systems could not be completed due to patient being sedated and mechanically ventilated. 12/18- initially patient is stable on Keppra 500 b.i.d. but on 12/18 a.m. and into p.m. patient has multiple rapid response consecutively for breakthrough seizures. First rapid response headed by Dr. Grigsby where multiple rounds of Ativan and Keppra load 1 g was given.. Thereafter patient has multiple other episodes between page patient is able to come back to baseline following commands. Finally patient has another rapid response for seizure breakthrough had a proximally 340 p.m. where [facility] neurology is consulted to have expert advice to control seizures. Plan is made to complete Keppra load to maximum. Second-line plan is for valproate. However on a 3rd rapid response at approximately 5 p.m. patient goes on to seizure without returning to baseline for most 45 minutes. Although vitals were stable this is classified now status epilepticus and per guidance from tele neuro intubation needed with propofol. Patient is intubated approximately 530 p.m. there is moderate difficulty due to patient's morbid obesity. Procedure note for details, appreciate RT. Once intubation medications wearing off patient is very difficult to control seizures. Advancing dosing of propofol and Versed are required to maintain RASS of-3 to -4. Levophed is required given propofol causing hypotension. Right IJ cvc inserted also with difficulty due to short and obese neck, appreciate resident physicians. OG and urinary Reed placement w some difficulty, appreciate nursing. Placement of OG, right IJ CBC, ETT confirmed by chest x- ray. Patient care level advanced to ICU. We will maintain patient at high levels of sedation until neurology evaluation in house. 12/19-patient remains on multiple sedatives control seizures. Now in ICU room 103.. Patient is getting Versed 15, propofol 40, fentanyl 250, Levophed to. Maintaining RASS goal negative for. Patient is ventilated a.c. 20/550/45%/5.0. Vitals mostly stable. Heart rate is on the bradycardia side in 50s. Blood pressure stable with Levophed to maps low 70s. We will continue RASS-4 until neurology review tomorrow in house. Patient has been NPO for few days because of seizures, no bowel sounds today. Out of caution we will do TPN for today deferring enteral feeds until patient is on lower sedation. 12/21/24: Patient seen and examined at bedside. Noted to have some fevers and mild increase in leukocytosis, started on IV Zosyn. Mom and sister at bedside, details of illness explained, all questions answered and concerns addressed. 12/22/24: Patient seen and examined, plan to cpap trial tomorrow. 12/23/24: Overnight when Versed was decreased, patient was noted to have 3 seizures and then another seizure in the a.m., resumed Versed at 14 micrograms/hour. CPAP trial could not be completed. Added vancomycin. 12/24/2024: No further seizures. When down on fentanyl to 275, Versed 213, off of propofol right now. Patient is somewhat responsive and we will periodically move extremities. Chest x-ray showed slight improvement in bilateral effusions and stable airspace disease. Discontinued vancomycin. Creatinine kinase decreased to 1263. 12/25/24 -no significant changes. We will repeat a CK level. PICC line dislodged he will be replaced over guidewire. Electrolyte replacements.. We will maintain in deep sedation until week day for re-evaluation by Neurology for recurrent seizures. Vital signs are stable. Patient currently on fentanyl, Versed 8, propofol 30, fentanyl 200.. Patient is getting feeds Vital HP. Urine output dark brown. Ventilated a.c. 20/550/45%/5.0.. Patient is still having fevers and has required increasing amounts of oxygen saturation to maintain saturates. We will repeat blood cultures and sputum cultures, appreciate respiratory and obtaining that. 12/26/2024.-pulmonology plans for bronch today. ABG good. X-ray pending. We will continue sedatives given primary team's directives. Fentanyl 150 Versed 7 propofol 45. Clinimix,. Continuing IV antibiotics. Urine output adequate. Vitals stable no vasopressors map more than 75. On mechanical ventilation. A.c./20/5 50/50%/5.0.. We will continue sedation and sedation vacation trial tomorrow morning when primary returns. Update--after bronch we will try sedation vacation maximum 3-4 hours if he is doing well. Continue sedatives if any seizure activity is noted. We will try another sedation vacation tomorrow morning for primary to evaluate. 12/27/24: resumed vancomycin and tube feedings, started lactulose. increased PEEP to 8. went down on fentanyl to 150, versed 7 and prop 45. 12/28/2024: Continues to have low-grade fever, on FiO2 100% saturating in the early 90s, peak pressure 29 mmHg. Scheduled for repeat bronchoscopy today. 12/29/24: patient continues to have low-grade fevers, Tmax overnight 99.9. started on IV lasix 40mg daily. Detailed discussion held with patient's mother Ms. Sabillon, cousin and cousins at bedside. Possibility of trach was discussed owing to today being patients day 12 of intubation. 12/30/2024: Chest x-ray showed no change in pulmonary edema or bilateral pleural effusion, ordered CT angiography chest, however, patient unstable for transfer as FiO2 100%, started patient on therapeutic Lovenox. 12/31/24: SpO2 improving today, averaging at 97% on FiO2 100%. continues to have low grade fever. continue therapeutic lovenox. Increased PEEP from 10 to 12 01/01/25: decreased FiO2 to 30%, PEEP 10. CXR showing mild interval progression in R perihilar pulmonary airspace disease 01/04/25: decreased peep to 7, continued low grade fever, repeated blood and sputum cultures, exchanged reed. tried sedation vacation, no new seizures, followed commands. Objective vital signs Vital Sign Date Time Temp Pulse Resp B/P (MAP) Pulse Ox O2 Delivery O2 Flow Rate FiO2 01/04/25 17:31 112/60 01/04/25 16:15 98.6 72 20 97 209.5 01/04/25 16:00 30 01/04/25 16:00 Mechanical Ventilator+ Total Intake and Output 01/03/25 01/03/25 01/04/25 15:00 23:00 07:00 Intake Total 1079.58 ml 1246.88 ml 2171.88 ml Output Total 2350 ml 1600 ml Balance 1079.58 ml -1103.12 ml 571.88 ml medications Current Medications Medications Dose Ordered Sig/Rick Route Start Time Stop Time Status Last Admin Dose Admin Lorazepam 1 mg Q5MINP PRN IV 12/18/24 11:00 12/23/24 08:43 1 MG Midazolam HCl 50 ml @ 1 mls/hr Q24H IV 12/18/24 21:15 01/04/25 17:31 9 MLS/HR Diagnostic Test (Pha) 1 strip Q6HR 12/19/24 12:00 01/04/25 18:00 1 STRIP Insulin Human Regular FOLLOW SLIDING SCALE Q6HR SC 12/19/24 12:00 Dextrose 50 ml UD IV 12/19/24 10:00 12/22/24 23:25 50 ML Albuterol 2.5 mg Q6HR NEB 12/19/24 18:00 01/04/25 11:30 2.5 MG Ipratropium [place] 0.5 mg Q6HR NEB 12/19/24 18:00 01/04/25 11:30 0.5 MG Pantoprazole Sodium 40 mg DAILY IV 12/21/24 10:00 01/04/25 10:23 40 MG Piperacillin Sod/ Tazobactam Sod 100 ml @ 25 mls/hr Q6HR IV 12/21/24 12:00 01/04/25 17:31 25 MLS/HR Polyethylene Glycol 17 gm DAILY PO 12/22/24 10:00 01/04/25 10:24 17 GM Docusate Sodium 100 mg BID GT 12/22/24 10:00 01/04/25 10:24 100 MG Thiamine HCl 100 mg DAILY IV 12/24/24 10:00 01/04/25 10:24 100 MG Folic Acid 1 mg/ Dextrose 50.2 ml @ 200.8 mls/ hr DAILY INJ 12/24/24 10:00 01/04/25 10:25 200.8 MLS/HR Propofol 100 ml @ 4.311 mls/ hr [id number] IV 12/24/24 04:00 01/04/25 16:46 4.311 MLS/HR Sodium Chloride 10 ml QSHIFT@10,22 IV 12/24/24 22:00 01/04/25 10:23 10 ML Vancomycin HCl 0 ml @ 0 mls/hr UD IV 12/27/24 16:45 Enteral Nutritional Formula 1,000 ml 40ML/HR GT 12/27/24 16:45 01/04/25 15:41 1,000 ML Lactulose 15 ml DAILY PO 12/28/24 10:00 01/04/25 10:24 15 ML Fentanyl Citrate 250 ml @ 2.5 mls/hr Q24H IV 12/28/24 02:30 01/04/25 16:21 22.5 MLS/HR Furosemide 40 mg DAILY IV 12/30/24 10:00 01/04/25 10:23 40 MG Enoxaparin Sodium 130 mg Q12HR SC 12/30/24 22:00 01/04/25 10:25 130 MG Vancomycin HCl 200 ml @ 200 mls/hr Q6H IV 12/30/24 20:00 01/04/25 14:27 200 MLS/HR Levetiracetam 750 mg/Dextrose 107.5 ml @ 430 mls/hr BID IV 12/30/24 22:00 01/04/25 11:10 430 MLS/HR Acetaminophen 625 mg Q8HPRN PRN GT 12/31/24 16:00 01/02/25 01:21 625 MG Examination General Appearance: Sedated and mechanically ventilated obese adult. Constricted pupils. noted to have swollen tongue, no stridor Pulmonary/Respiratory: Coarse bilateral breath sounds Cardiovascular/Chest: Tachycardia Peripheral Pulses: 2+ Pedal (R). 2+ Pedal (L) Abdominal Exam: Normal bowel sounds. Soft. normal abdomen, no visible veins, Nontender. No hepatospenomegaly. No masses Lower extremities: Negative lower extremity edema Skin Exam: Normal inspection. Normal color. Dry. warm laboratory and microbiology Laboratory Tests 01/04/25 02:56 Test 01/04/25 02:56 Range/Units Serum Glucose 83 74-106 mg/dL Microbiology Date/Time Source Procedure Growth Status 12/26/24 11:46 Bronchial Washings Gram Stain - Final Complete 12/26/24 11:46 Respiratory Culture - Final Staphylococcus aureus Complete 12/25/24 15:20 Catheter Site Aerobic Culture - Final Staphylococcus epidermidis Complete 12/25/24 10:17 Blood Blood Culture - Final NO GROWTH AFTER 5 DAYS OF INCUBATION. Complete 12/20/24 17:00 Voided Urine Urine Culture - Final Complete Problem List/Assessment/Plan Problem List/Assessment/Plan Neurology # acute likely toxic versus metabolic encephalopathy # new onset? Breakthrough grand mal seizures # medication nonadherence # possible alcohol withdrawal, unable to calculate CIWA # Sedated - Versed 8 - fentanyl 200 - proprofol 50 - serum valproic acid levels below normal 22.1 - IV levetiracetam 1500 mg b.i.d. - IV lorazepam as needed for seizures - head CT: No evidence of acute intracranial abnormality. If symptoms persist, consider MRI for further evaluation. - neurology on board - brain MRI: No evidence of acute infarction, intracranial hemorrhage, mass effect or hydrocephalus. No effects of mesial temporal sclerosis. Pansinusitis. Prominent bilateral cervical lymph nodes. - last seizure 12/23/2024 - brain EEG largely unremarkable - IV banana bag x2, IV thiamine, IV folic acid Cardiovascular # essential hypertension # sepsis secondary to aspiration pneumonia - stopped IV NS at 60 cc/hour Respiratory # Acute hypoxic respiratory failure secondary to intractable seizures # probable aspiration pneumonia, cultures growing MSSA # Ventilator # pulmonary edema # b/l pleural effusion # ?pulmonary embolism - intubated 12/18/2024 - on [facility] vent : VCAC Mode RR 20 TV 550ml, PEEP Of 10 and FiO2 of 90% - ipratropium and albuterol med nebs - CXR: Hypoinflated lungs with bibasilar atelectasis - started on IV Zosyn 12/21/2024 - started IV vancomycin per pharmacy on 12/23/2024, discontinued vancomycin on 12/24/2024 - resumed vancomycin on 12/27/24 - CXR 12/29/24: Stable cardiomegaly, bilateral pleural effusions and moderate diffuse increased prominence of the pulmonary vasculature. Right basilar pulmonary airspace disease. - IV lasix 40mg daily - ordered CT angiography chest - therapeutic Lovenox - ordered repeat lower extremity Doppler GI # transaminitis # Peptic ulcer prophylaxis # vitamin B12 deficiency # constipation, likely slow transit -Pantoprazole 40 mg IV daily - negative hepatitis-B and hepatitis-C - repleted with 1000 mcg B12 - lactulose daily - KUB: Nonobstructive bowel gas pattern. Moderate stool burden. # Reed catheter placed on 12/18/2024 Nephrology # hypernatremia, now improved # hypokalemia, now improved - serum creatinine 2159 on 12/23/2024, 1263 on 12/24/2024 - monitor Infectious disease # aspiration pneumonia # sepsis due to above # right IJ catheter tip (placed on 12/18/2024, removed on 12/24/2024) culture growing staph epidermidis - pancultures - IV Zosyn - IV vancomycin - Tylenol as needed for fever - s/p bronchoscopy x 2 Hem/onc # microcytic anemia, mild - monitor Psychiatry # substance use disorder - we will consider Psychiatry consult once patient is extubated DVT prophylaxis on therapeutic lovenox Nutrition - tube feedings started on 12/21/2024 Lines Right PICC placed on 12/24/24 Left arm 20 gauge placed on 12/17/2024 Drips - Versed 8 - fentanyl 200 - propofol 50 Intubated on 12/18/2024 Bronchoscopy on 12/26/24 Repeat bronchoscopy on 12/28/2024 on [facility] vent : VCAC Mode RR 20 TV 550ml, PEEP Of 10 and FiO2 of 30% Critical care time 86 minutes excluding procedure. Code status discussed greater than 20 minutes: Full CODE STATUS. Plan discussed with Dr. Iqbal Detailed discussion held with patient's mother Ms. Sabillon at bedside. Possibility of trach was discussed again Plan discussed with: Other (mother, RN) My Orders My Orders Orders - STUART SAGASTUME RESIDENT Procedure Category Date Status Time Abg W/ Co-Ox RT 01/04/25 Logged 04:00 Respiratory Culture BRENDA 01/04/25 Logged W/ Gs 18:01 Sputum Induction RT 01/04/25 Logged 18:01 Communication Order ORDERS 01/04/25 Transmitted 18:01 Dietary Evaluation Review Comments: 1) Continue TPN to meet at least 75% estimated needs 2) TF Vital High Protein @ 60ml/hr(goal) with current rate of propofol. TF at goal volume together with propofol provides 2471 kcal (100% eenrgy needs) & 126 gm protein (100% protein needs) 3) Monitor TPN tolerance, lab values, I/O, wt trend Expected Outcomes/Goals: To meet >75% estimated needs Fu 2-3 days Date of Service: Jan 04, 2025 Billing Provider: ANTHONY IQBAL MD Common Visit Codes: 66314-[id number] CARE 30-74 MIN, [id number] CARE-EACH +30MIN STUART SAGASTUME Jan 04, 2025 18:12 ANTHONY IQBAL MD Jan 05, 2025 10:56
[2025-01-05] VITALS (107 sets, daily range): BP systolic 96–162; BP diastolic 43–89; PULSE 66–108; RESP 14–27; TEMP 97.5–101.1; O2SAT 89–99
[2025-01-05 03:37] LABS: Hematocrit 30.9 % (41.0-53.0); Hemoglobin 10.8 g/dL (13.5-17.5); Mean Corpuscular Hemoglobin 30.5 pg (28.0-32.0); Mean Corpuscular Volume 87.5 fL (80.0-100.0); Nucleated Red Blood Cells % 0.1 %
[2025-01-05 03:48] LABS: Albumin 4.2 g/dL (3.2-4.8); Anion Gap 12 (5-15); BUN/Creatinine Ratio 26.8 (10.0-20.0); Bilirubin, Total 0.4 mg/dL (0.2-1.0); Blood Urea Nitrogen 11 mg/dL (9-23); Calcium 9.8 mg/dL (8.7-10.4); Carbon Dioxide 25 mmol/L (20-31); Chloride 103 mmol/L (98-107); Glucose 90 mg/dL (74-106); Sodium 140 mmol/L (136-145); Total Protein 7.3 g/dL (5.7-8.2)
[2025-01-05 03:50] LABS: Alanine Aminotransferase 67 U/L (7-40); Alkaline Phosphatase 159 U/L (46-116); Potassium 3.5 mmol/L (3.5-5.1)
--- NOTE | 2025-01-05 04:53 | DVH ---
CHEST RADIOGRAPH Indication: pna Technique: Single frontal view of the chest was obtained COMPARISON: XY CHEST PORTABLE on DOS: 01/04/25, XY CHEST PORTABLE on DOS: 01/03/25, XY CHEST PORTABLE o n DOS: 01/02/25, XY CHEST PORTABLE on DOS: 01/01/25, XY CHEST PORTABLE on DOS: 12/31/24 FINDINGS: Lines and Tubes: Unchanged. Lungs: Stable appearing bilateral pleural effusions and bibasilar pulmonary airspace disease. No pneumothorax. Cardiomediastinal contours: Unremarkable Bones: Unremarkable IMPRESSION: 1. Stable appearing bibasilar pulmonary airspace disease and bilateral pleural effusions. 2. Lines and tubes unchanged.
[2025-01-05 08:01] LABS: Base Excess 0.2 mmol/L (-2.0-3.0)
[2025-01-05] MEDS ORDERED: ENOXAPARIN SOD 150 MG/1 ML SYRINGE SC SCH (10:00)
--- NOTE | 2025-01-05 10:34 | DVHPN2 ---
Progress Note - Dictate Date Seen: Jan 05, 2025 Medical Necessity Reason Pt with a Central, PICC or Fol: Yes The following are medically ne: Reed Catheter Reason for reed catheter: Strict I&O Subjective Mr. Perry is a 24 years old right-handed gentleman with a history of hypertension, pain syndrome, substance abuse, he was admitted to the [facility] on 12/17/2024 for new onset seizure activity. I have seen and examined the patient, discussed with his nurses. He had desaturation during sedation vacation, as a result, the sedation was increased. At this time, he is only responsive to stroke painful stimuli Fentanyl 250 mcg/hour, Versed 49 mg/hour, propofol 50 mcg/minute, FiO2: 40% Blood culture, 12/25/2024: No growth Sputum culture, 12/25/2024: Staphylococcus aureus Urine culture, 01/04/2025: Urinalysis, 12/17/2024: Unremarkable Urine drug screening, 12/17/2024: Benzo Valproic acid, 12/17/2024: 22.1 Plasma alcohol, 12/17/2024: <3 ABG, 12/18/2024: Respiratory acidosis, 12/20/2024: Acidosis, 12/22/2024: Hypoxia, 12/24/2024: Hypoxia, carbon dioxide retention, 12/25/2024: Hypoxia, carbon dioxide retention, 12/29/2024: Hypoxia, carbon dioxide retention WBC/HB/PLT/MCV, 12/20/2024: 8/12.4/233/90.4 CMP 12/18/2024: Unremarkable TBI/AST/ALT/AP, 12/20/2024: 0.7/44/45/143 EEG, 12/19/2019 10/26/24 13:15: Normal EEG, 12/23/2024: Moderately abnormal EEG Bronchoscopy 01/12/25: There were copious blood tinged secretions in the airways bilaterally Chest x-ray 12/18/2024: Endotracheal tube 0.7 cm above the rogers. Nasogastric tube in the proximal stomach Chest x-ray, 12/27/2024: 1. Stable mild multifocal bilateral pulmonary airspace disease, most notably at the lung bases. 2. Lines and tubes unchanged Chest x-ray, 12/29/2024: 1. Stable cardiomegaly, bilateral pleural effusions and moderate diffuse increased prominence of the pulmonary vasculature. 2. Right basilar pulmonary airspace disease. 3. Interval retraction of endotracheal tube as above. Remaining lines and tubes unchanged CT head, 12/17/2024: No evidence of acute intracranial abnormality. If symptoms persist, consider MRI for further evaluation MR head, 12/21/2024: No evidence of acute infarction, intracranial hemorrhage, mass effect or hydrocephalus. No evidence of mesial temporal sclerosis. Pansinusitis. Prominent bilateral cervical lymph nodes. This can be further evaluated with ultrasound vital signs Vital Sign Date Time Temp Pulse Resp B/P (MAP) Pulse Ox O2 Delivery O2 Flow Rate FiO2 01/05/25 09:44 132/69 01/05/25 08:00 74 20 94 Mechanical Ventilator+ 30 30 01/05/25 06:30 99.0 210.2 Total Intake and Output 01/04/25 01/04/25 01/05/25 15:00 23:00 07:00 Intake Total 1568.915 ml 1099.465 ml 1034.965 ml Output Total 3352 ml 1300 ml Balance 1568.915 ml -2252.535 ml -265.035 ml medications Current Medications Medications Dose Ordered Sig/Rick Route Start Time Stop Time Status Last Admin Dose Admin Lorazepam 1 mg Q5MINP PRN IV 12/18/24 11:00 12/23/24 08:43 1 MG Midazolam HCl 50 ml @ 1 mls/hr Q24H IV 12/18/24 21:15 01/05/25 06:00 9 MLS/HR Diagnostic Test (Pha) 1 strip Q6HR 12/19/24 12:00 01/05/25 06:12 1 STRIP Insulin Human Regular FOLLOW SLIDING SCALE Q6HR SC 12/19/24 12:00 Dextrose 50 ml UD IV 12/19/24 10:00 12/22/24 23:25 50 ML Albuterol 2.5 mg Q6HR NEB 12/19/24 18:00 01/05/25 06:03 2.5 MG Ipratropium [place] 0.5 mg Q6HR NEB 12/19/24 18:00 01/05/25 06:03 0.5 MG Pantoprazole Sodium 40 mg DAILY IV 12/21/24 10:00 01/05/25 09:43 40 MG Piperacillin Sod/ Tazobactam Sod 100 ml @ 25 mls/hr Q6HR IV 12/21/24 12:00 01/05/25 05:59 25 MLS/HR Polyethylene Glycol 17 gm DAILY PO 12/22/24 10:00 01/04/25 10:24 17 GM Docusate Sodium 100 mg BID GT 12/22/24 10:00 01/04/25 21:41 100 MG Thiamine HCl 100 mg DAILY IV 12/24/24 10:00 01/05/25 09:44 100 MG Folic Acid 1 mg/ Dextrose 50.2 ml @ 200.8 mls/ hr DAILY INJ 12/24/24 10:00 01/05/25 10:29 200.8 MLS/HR Propofol 100 ml @ 4.311 mls/ hr [id number] IV 12/24/24 04:00 01/05/25 09:55 43.11 MLS/HR Sodium Chloride 10 ml QSHIFT@10,22 IV 12/24/24 22:00 01/05/25 09:44 10 ML Vancomycin HCl 0 ml @ 0 mls/hr UD IV 12/27/24 16:45 Enteral Nutritional Formula 1,000 ml 40ML/HR GT 12/27/24 16:45 01/04/25 15:41 1,000 ML Lactulose 15 ml DAILY PO 12/28/24 10:00 01/04/25 10:24 15 ML Fentanyl Citrate 250 ml @ 2.5 mls/hr Q24H IV 12/28/24 02:30 01/05/25 04:53 22.5 MLS/HR Furosemide 40 mg DAILY IV 12/30/24 10:00 01/05/25 09:44 40 MG Vancomycin HCl 200 ml @ 200 mls/hr Q6H IV 12/30/24 20:00 01/05/25 09:43 200 MLS/HR Levetiracetam 750 mg/Dextrose 107.5 ml @ 430 mls/hr BID IV 12/30/24 22:00 01/04/25 21:41 430 MLS/HR Acetaminophen 625 mg Q8HPRN PRN GT 12/31/24 16:00 01/05/25 00:32 625 MG Enoxaparin Sodium 130 mg DAILY SC 01/05/25 10:00 objective The patient is well-nourished and well-developed with no distress. The patient is intubated MENTAL STATUS: Subjective CRANIAL NERVES: Pupils are equal, round and nonreactive, small. There are corneal reflexes and doll's eyes phenomenon. No signs of facial weakness. There are gagging or coughing reflexes SENSATION: Responses to pain stimuli. MOTOR: Normal tone in the upper and lower extremity. Normal muscle bulk. No fasciculations. Spontaneous movement in the arms and the legs REFLEXES: Deep tendon reflexes are symmetrical. No pathological reflexes. CEREBELLAR/COORDINATION: Deferred GAIT/STATION: deferred laboratory and microbiology Laboratory Tests 01/05/25 02:26 Test 01/05/25 02:26 Range/Units Serum Glucose 90 74-106 mg/dL Problem List Come Metabolic encephalopathy Hypoxic encephalopathy Toxic encephalopathy ? Status epileptics New onset seizure, status epileptics Likely secondary to substance abuse Rule out epileptic seizure or other acute symptomatic seizure The activity witnessed on 12/23/2024 was not typical to seizure, likely myoclonus Substance abuse ? Depression Respiratory failure/hypoxia Pneumonia Improving Assessment/Plan Monitoring Supportive treatment Telemetry Follow-up lab ICU care Stabilize vitals/pressor drip Respiratory support/vent management Ativan for seizure breakthrough Keppra 750 mg IV b.i.d. , he may not need preventive seizure treatment Need history from him directly Consider tele psych consultation Re: The previous substance abuse later More recommendation per clinical course This medical document was created using an electronic medical record system with [employer] dictation system. Although this document has been carefully reviewed, there may still be some phonetic and typographical errors. These areas are purely typographical due to imperfections of the software programs, and do not reflect any compromise in the patient's medical care. Prognosis guarded Dietary Evaluation Review Comments: 1) Continue TPN to meet at least 75% estimated needs 2) TF Vital High Protein @ 60ml/hr(goal) with current rate of propofol. TF at goal volume together with propofol provides 2471 kcal (100% eenrgy needs) & 126 gm protein (100% protein needs) 3) Monitor TPN tolerance, lab values, I/O, wt trend Expected Outcomes/Goals: To meet >75% estimated needs Fu 2-3 days Plan discussed with: Other BONNY PEREZ MD Jan 05, 2025 10:34
[2025-01-05] MEDS: FUROSEMIDE 40 MG/4 ML VIAL IV ONE (12:28)
--- NOTE | 2025-01-05 15:32 | DVHPNRES ---
Progress Note Date Seen: Jan 05, 2025 Resident Creating Document: STUART SAGASTUME RESIDENT Medical Necessity Reason Pt with a Central, PICC or Fol: Yes The following are medically ne: Reed Catheter Reason for reed catheter: Strict I&O Subjective Review of Systems Patient is a 24-year-old male with past medical history of hypertension, chronic pain, substance abuse disorder, who was brought in due to new onset seizures. Patient is sedated and mechanically ventilated, history was obtained from patient's mother Ms. Sabillon via telephone. According to the patient's mother, patient has been abusing laughing gas heavily for some time, patient went to by laughing gas on Friday12/15/2024 and used it with his friend where according to the friend patient consumed most of the canister. Patient's mom took him to the rehab on 12/16/2024 where he had a seizure and was taken to the hospital and subsequently discharged back to the rehab facility. On patient again started having seizures which is when he was taken to the hospital again and was subsequently intubated. Patient reported saying he is prescribed Depakote but he has been noncompliant, serum valproic levels were below therapeutic range at 22.1 Past surgical history: Denies Smoking: Uses tobacco vaporizer pen heavily daily Alcohol: Remote history of heavy alcohol use Drugs: Mother is unsure, however, notes he may have history of cocaine abuse and MDMA abuse Previously patient was living in a rented home with a roommate, for the last 1 week was living with mother. Review of systems could not be completed due to patient being sedated and mechanically ventilated. 12/18- initially patient is stable on Keppra 500 b.i.d. but on 12/18 a.m. and into p.m. patient has multiple rapid response consecutively for breakthrough seizures. First rapid response headed by Dr. Grigsby where multiple rounds of Ativan and Keppra load 1 g was given.. Thereafter patient has multiple other episodes between page patient is able to come back to baseline following commands. Finally patient has another rapid response for seizure breakthrough had a proximally 340 p.m. where [facility] neurology is consulted to have expert advice to control seizures. Plan is made to complete Keppra load to maximum. Second-line plan is for valproate. However on a 3rd rapid response at approximately 5 p.m. patient goes on to seizure without returning to baseline for most 45 minutes. Although vitals were stable this is classified now status epilepticus and per guidance from tele neuro intubation needed with propofol. Patient is intubated approximately 530 p.m. there is moderate difficulty due to patient's morbid obesity. Procedure note for details, appreciate RT. Once intubation medications wearing off patient is very difficult to control seizures. Advancing dosing of propofol and Versed are required to maintain RASS of-3 to -4. Levophed is required given propofol causing hypotension. Right IJ cvc inserted also with difficulty due to short and obese neck, appreciate resident physicians. OG and urinary Reed placement w some difficulty, appreciate nursing. Placement of OG, right IJ CBC, ETT confirmed by chest x- ray. Patient care level advanced to ICU. We will maintain patient at high levels of sedation until neurology evaluation in house. 12/19-patient remains on multiple sedatives control seizures. Now in ICU room 103.. Patient is getting Versed 15, propofol 40, fentanyl 250, Levophed to. Maintaining RASS goal negative for. Patient is ventilated a.c. 20/550/45%/5.0. Vitals mostly stable. Heart rate is on the bradycardia side in 50s. Blood pressure stable with Levophed to maps low 70s. We will continue RASS-4 until neurology review tomorrow in house. Patient has been NPO for few days because of seizures, no bowel sounds today. Out of caution we will do TPN for today deferring enteral feeds until patient is on lower sedation. 12/21/24: Patient seen and examined at bedside. Noted to have some fevers and mild increase in leukocytosis, started on IV Zosyn. Mom and sister at bedside, details of illness explained, all questions answered and concerns addressed. 12/22/24: Patient seen and examined, plan to cpap trial tomorrow. 12/23/24: Overnight when Versed was decreased, patient was noted to have 3 seizures and then another seizure in the a.m., resumed Versed at 14 micrograms/hour. CPAP trial could not be completed. Added vancomycin. 12/24/2024: No further seizures. When down on fentanyl to 275, Versed 213, off of propofol right now. Patient is somewhat responsive and we will periodically move extremities. Chest x-ray showed slight improvement in bilateral effusions and stable airspace disease. Discontinued vancomycin. Creatinine kinase decreased to 1263. 12/25/24 -no significant changes. We will repeat a CK level. PICC line dislodged he will be replaced over guidewire. Electrolyte replacements.. We will maintain in deep sedation until week day for re-evaluation by Neurology for recurrent seizures. Vital signs are stable. Patient currently on fentanyl, Versed 8, propofol 30, fentanyl 200.. Patient is getting feeds Vital HP. Urine output dark brown. Ventilated a.c. 20/550/45%/5.0.. Patient is still having fevers and has required increasing amounts of oxygen saturation to maintain saturates. We will repeat blood cultures and sputum cultures, appreciate respiratory and obtaining that. 12/26/2024.-pulmonology plans for bronch today. ABG good. X-ray pending. We will continue sedatives given primary team's directives. Fentanyl 150 Versed 7 propofol 45. Clinimix,. Continuing IV antibiotics. Urine output adequate. Vitals stable no vasopressors map more than 75. On mechanical ventilation. A.c./20/5 50/50%/5.0.. We will continue sedation and sedation vacation trial tomorrow morning when primary returns. Update--after bronch we will try sedation vacation maximum 3-4 hours if he is doing well. Continue sedatives if any seizure activity is noted. We will try another sedation vacation tomorrow morning for primary to evaluate. 12/27/24: resumed vancomycin and tube feedings, started lactulose. increased PEEP to 8. went down on fentanyl to 150, versed 7 and prop 45. 12/28/2024: Continues to have low-grade fever, on FiO2 100% saturating in the early 90s, peak pressure 29 mmHg. Scheduled for repeat bronchoscopy today. 12/29/24: patient continues to have low-grade fevers, Tmax overnight 99.9. started on IV lasix 40mg daily. Detailed discussion held with patient's mother Ms. Sabillon, cousin and cousins at bedside. Possibility of trach was discussed owing to today being patients day 12 of intubation. 12/30/2024: Chest x-ray showed no change in pulmonary edema or bilateral pleural effusion, ordered CT angiography chest, however, patient unstable for transfer as FiO2 100%, started patient on therapeutic Lovenox. 12/31/24: SpO2 improving today, averaging at 97% on FiO2 100%. continues to have low grade fever. continue therapeutic lovenox. Increased PEEP from 10 to 12 01/01/25: decreased FiO2 to 30%, PEEP 10. CXR showing mild interval progression in R perihilar pulmonary airspace disease 01/04/25: decreased peep to 7, continued low grade fever, repeated blood and sputum cultures, exchanged reed. tried sedation vacation, no new seizures, followed commands. 01/05/2025: Stable bibasilar airspace disease. Decreased Lovenox to 40 mg b.i.d., 1 dose of IV Lasix. Decrease PEEP to 6. Possible tracheostomy tomorrow Objective vital signs Vital Sign Date Time Temp Pulse Resp B/P (MAP) Pulse Ox O2 Delivery O2 Flow Rate FiO2 01/05/25 14:45 136/76 01/05/25 14:19 74 20 94 30 01/05/25 14:00 Mechanical Ventilator+ 01/05/25 10:45 99.0 210.2 Total Intake and Output 01/04/25 01/04/25 01/05/25 15:00 23:00 07:00 Intake Total 1568.915 ml 1099.465 ml 1034.965 ml Output Total 3352 ml 1300 ml Balance 1568.915 ml -2252.535 ml -265.035 ml medications Current Medications Medications Dose Ordered Sig/Rick Route Start Time Stop Time Status Last Admin Dose Admin Lorazepam 1 mg Q5MINP PRN IV 12/18/24 11:00 12/23/24 08:43 1 MG Midazolam HCl 50 ml @ 1 mls/hr Q24H IV 12/18/24 21:15 01/05/25 14:42 9 MLS/HR Diagnostic Test (Pha) 1 strip Q6HR 12/19/24 12:00 01/05/25 12:29 1 STRIP Insulin Human Regular FOLLOW SLIDING SCALE Q6HR SC 12/19/24 12:00 Dextrose 50 ml UD IV 12/19/24 10:00 12/22/24 23:25 50 ML Albuterol 2.5 mg Q6HR NEB 12/19/24 18:00 01/05/25 11:45 2.5 MG Ipratropium [place] 0.5 mg Q6HR NEB 12/19/24 18:00 01/05/25 11:45 0.5 MG Pantoprazole Sodium 40 mg DAILY IV 12/21/24 10:00 01/05/25 09:43 40 MG Piperacillin Sod/ Tazobactam Sod 100 ml @ 25 mls/hr Q6HR IV 12/21/24 12:00 01/05/25 12:30 25 MLS/HR Polyethylene Glycol 17 gm DAILY PO 12/22/24 10:00 01/04/25 10:24 17 GM Docusate Sodium 100 mg BID GT 12/22/24 10:00 01/04/25 21:41 100 MG Thiamine HCl 100 mg DAILY IV 12/24/24 10:00 01/05/25 09:44 100 MG Folic Acid 1 mg/ Dextrose 50.2 ml @ 200.8 mls/ hr DAILY INJ 12/24/24 10:00 01/05/25 10:29 200.8 MLS/HR Sodium Chloride 10 ml QSHIFT@10,22 IV 12/24/24 22:00 01/05/25 09:44 10 ML Vancomycin HCl 0 ml @ 0 mls/hr UD IV 12/27/24 16:45 Enteral Nutritional Formula 1,000 ml 40ML/HR GT 12/27/24 16:45 01/04/25 15:41 1,000 ML Lactulose 15 ml DAILY PO 12/28/24 10:00 01/04/25 10:24 15 ML Fentanyl Citrate 250 ml @ 2.5 mls/hr Q24H IV 12/28/24 02:30 01/05/25 14:45 25 MLS/HR Furosemide 40 mg DAILY IV 12/30/24 10:00 01/05/25 09:44 40 MG Vancomycin HCl 200 ml @ 200 mls/hr Q6H IV 12/30/24 20:00 01/05/25 14:29 200 MLS/HR Levetiracetam 750 mg/Dextrose 107.5 ml @ 430 mls/hr BID IV 12/30/24 22:00 01/05/25 10:56 430 MLS/HR Acetaminophen 625 mg Q8HPRN PRN GT 12/31/24 16:00 01/05/25 00:32 625 MG Enoxaparin Sodium 40 mg Q12HP SC 01/05/25 22:00 Examination General Appearance: Sedated and mechanically ventilated obese adult. Constricted pupils. noted to have swollen tongue, no stridor Pulmonary/Respiratory: Coarse bilateral breath sounds Cardiovascular/Chest: Tachycardia Peripheral Pulses: 2+ Pedal (R). 2+ Pedal (L) Abdominal Exam: Normal bowel sounds. Soft. normal abdomen, no visible veins, Nontender. No hepatospenomegaly. No masses Lower extremities: Negative lower extremity edema Skin Exam: Normal inspection. Normal color. Dry. warm laboratory and microbiology Laboratory Tests 01/05/25 02:26 Test 01/05/25 02:26 Range/Units Serum Glucose 90 74-106 mg/dL Microbiology Date/Time Source Procedure Growth Status 01/04/25 18:15 Sputum Gram Stain - Final Resulted 01/04/25 18:15 Sputum Respiratory Culture - Preliminary Resulted 01/04/25 17:00 Urine - Reed [place] Urine Culture - Preliminary Resulted 12/25/24 15:20 Catheter Site Aerobic Culture - Final Staphylococcus epidermidis Complete 12/25/24 10:17 Blood Blood Culture - Final NO GROWTH AFTER 5 DAYS OF INCUBATION. Complete Labs and/or images reviewed: Labs reviewed by me, Image(s) reviewed by me Problem List/Assessment/Plan Problem List/Assessment/Plan Neurology # acute likely toxic versus metabolic encephalopathy # new onset? Breakthrough grand mal seizures # medication nonadherence # possible alcohol withdrawal, unable to calculate CIWA # Sedated - Versed 8 - fentanyl 200 - proprofol 50 - serum valproic acid levels below normal 22.1 - IV levetiracetam 1500 mg b.i.d. - IV lorazepam as needed for seizures - head CT: No evidence of acute intracranial abnormality. If symptoms persist, consider MRI for further evaluation. - neurology on board - brain MRI: No evidence of acute infarction, intracranial hemorrhage, mass effect or hydrocephalus. No effects of mesial temporal sclerosis. Pansinusitis. Prominent bilateral cervical lymph nodes. - last seizure 12/23/2024 - brain EEG largely unremarkable - IV banana bag x2, IV thiamine, IV folic acid Cardiovascular # essential hypertension # sepsis secondary to aspiration pneumonia - stopped IV NS at 60 cc/hour Respiratory # Acute hypoxic respiratory failure secondary to intractable seizures # probable aspiration pneumonia, cultures growing MSSA # Ventilator # pulmonary edema # b/l pleural effusion # ?pulmonary embolism - intubated 12/18/2024 - on [facility] vent : VCAC Mode RR 20 TV 550ml, PEEP Of 10 and FiO2 of 90% - ipratropium and albuterol med nebs - CXR: Hypoinflated lungs with bibasilar atelectasis - started on IV Zosyn 12/21/2024 - started IV vancomycin per pharmacy on 12/23/2024, discontinued vancomycin on 12/24/2024 - resumed vancomycin on 12/27/24 - CXR 12/29/24: Stable cardiomegaly, bilateral pleural effusions and moderate diffuse increased prominence of the pulmonary vasculature. Right basilar pulmonary airspace disease. - IV lasix 40mg daily - ordered CT angiography chest - therapeutic Lovenox - ordered repeat lower extremity Doppler GI # transaminitis # Peptic ulcer prophylaxis # vitamin B12 deficiency # constipation, likely slow transit -Pantoprazole 40 mg IV daily - negative hepatitis-B and hepatitis-C - repleted with 1000 mcg B12 - lactulose daily - KUB: Nonobstructive bowel gas pattern. Moderate stool burden. # Reed catheter placed on 12/18/2024 Nephrology # hypernatremia, now improved # hypokalemia, now improved - serum creatinine 2159 on 12/23/2024, 1263 on 12/24/2024 - monitor Infectious disease # aspiration pneumonia # sepsis due to above # right IJ catheter tip (placed on 12/18/2024, removed on 12/24/2024) culture growing staph epidermidis - pancultures - IV Zosyn - IV vancomycin - Tylenol as needed for fever - s/p bronchoscopy x 2 - repeat blood cultures, repeat sputum cultures Hem/onc # microcytic anemia, mild - monitor Psychiatry # substance use disorder - we will consider Psychiatry consult once patient is extubated DVT prophylaxis On Lovenox 40 mg b.i.d. Nutrition - tube feedings started on 12/21/2024 Lines Right PICC placed on 12/24/24 Left arm 20 gauge placed on 12/17/2024 Drips - Versed 8 - fentanyl 200 - propofol 50 Intubated on 12/18/2024 Bronchoscopy on 12/26/24 Repeat bronchoscopy on 12/28/2024 Reed on 01/04/2025 on [facility] vent : VCAC Mode RR 20 TV 550ml, PEEP Of 6 and FiO2 of 30% Critical care time 86 minutes excluding procedure. Code status discussed greater than 20 minutes: Full CODE STATUS. Plan discussed with Dr. Iqbal Detailed discussion held with patient's mother Ms. Sabillon at bedside. Possibility of trach was discussed again Plan discussed with: Other (Mother, RN) My Orders My Orders Orders - STUART SAGASTUME Procedure Category Date Status Time Respiratory Culture BRENDA 01/04/25 In Process W/ Gs 18:01 Sputum Induction RT 01/04/25 Logged 18:01 Communication Order ORDERS 01/04/25 Transmitted 18:01 Chest Portable XY 01/05/25 Resulted 04:00 Communication Order ORDERS 01/04/25 Transmitted 19:46 Communication Order ORDERS 01/04/25 Transmitted 19:51 Abg W/ Co-Ox RT 01/05/25 Logged 05:22 Potassium LAB 01/05/25 Logged 15:25 Dietary Evaluation Review Comments: 1) Continue TPN to meet at least 75% estimated needs 2) TF Vital High Protein @ 60ml/hr(goal) with current rate of propofol. TF at goal volume together with propofol provides 2471 kcal (100% eenrgy needs) & 126 gm protein (100% protein needs) 3) Monitor TPN tolerance, lab values, I/O, wt trend Expected Outcomes/Goals: To meet >75% estimated needs Fu 2-3 days Date of Service: Jan 05, 2025 Billing Provider: ANTHONY IQBAL MD Common Visit Codes: 38268-CXGKYVUN CARE 30-74 MIN, 60069-[id number] CARE-EACH +30MIN STUART SAGASTUME Jan 05, 2025 15:32 ANTHONY IQBAL MD Jan 06, 2025 11:39
[2025-01-05] MEDS: PROPOFOL 100 ML IV ONE ×2 (16:06→18:10)
[2025-01-05] MEDS: PROPOFOL 100 ML IV SCH (17:32)
[2025-01-05] MEDS: POTASSIUM CHL 20MEQ/100ML 100 ML IV SCH (20:23)
[2025-01-05] MEDS: ENOXAPARIN SOD 60 MG/0.6 ML SYRINGE SC SCH (21:44)
[2025-01-05] MEDS: MAGNESIUM SULFATE 1GM/100ML 100 ML IV SCH (21:45)
[2025-01-06] VITALS (107 sets, daily range): BP systolic 97–154; BP diastolic 43–94; PULSE 63–91; RESP 17–28; TEMP 98.1–99.5; O2SAT 89–100
[2025-01-06 05:18] LABS: Albumin 4.1 g/dL (3.2-4.8); Anion Gap 10 (5-15); BUN/Creatinine Ratio 22.5 (10.0-20.0); Bilirubin, Total 0.3 mg/dL (0.2-1.0); Calcium 9.5 mg/dL (8.7-10.4); Carbon Dioxide 26 mmol/L (20-31); Chloride 103 mmol/L (98-107); Glucose 98 mg/dL (74-106); Potassium 3.5 mmol/L (3.5-5.1); Sodium 139 mmol/L (136-145); Total Protein 7.2 g/dL (5.7-8.2)
[2025-01-06 05:27] LABS: Alanine Aminotransferase 58 U/L (7-40); Alkaline Phosphatase 144 U/L (46-116); Blood Urea Nitrogen 9 mg/dL (9-23)
--- NOTE | 2025-01-06 05:27 | DVH ---
CHEST RADIOGRAPH Indication: pna Technique: Single frontal view of the chest was obtained COMPARISON: XY CHEST PORTABLE on DOS: 01/05/25, XY CHEST PORTABLE on DOS: 01/04/25, XY CHEST PORTABLE o n DOS: 01/03/25, XY CHEST PORTABLE on DOS: 01/02/25, XY CHEST PORTABLE on DOS: 01/01/25 FINDINGS: Lines and Tubes: Unchanged. Lungs: Stable appearing small left pleural effusion and moderate diffuse increased prominence of the pulmonary vasculature. No pneumothorax. Cardiomediastinal contours: Unremarkable Bones: Unremarkable IMPRESSION: 1. Stable appearing small left pleural effusion and diffuse increased prominence of the pulmonary vas culature. 2. Lines and tubes unchanged.
[2025-01-06 05:33] LABS: Hematocrit 30.8 % (41.0-53.0); Hemoglobin 10.5 g/dL (13.5-17.5); Mean Corpuscular Hemoglobin 30.2 pg (28.0-32.0); Mean Corpuscular Volume 88.2 fL (80.0-100.0); Nucleated Red Blood Cells % 0.1 %
[2025-01-06 07:24] LABS: Base Excess 1.8 mmol/L (-2.0-3.0)
--- NOTE | 2025-01-06 10:43 | DVHPN2 ---
Progress Note - Dictate Date Seen: Jan 06, 2025 Medical Necessity Reason Pt with a Central, PICC or Fol: Yes The following are medically ne: Reed Catheter Reason for reed catheter: Strict I&O Subjective Mr. Perry is a 24 years old right-handed gentleman with a history of hypertension, pain syndrome, substance abuse, he was admitted to the [facility] on 12/17/2024 for new onset seizure activity. I have seen and examined the patient, discussed with his nurses. At this time, he is only responsive to strong painful stimuli, there was spontaneous conjugated eye movement with eyes opened passively Fentanyl 225 mcg/hour, Versed 49 mg/hour, propofol 50 mcg/minute, FiO2: 40% Blood culture, 12/25/2024: No growth Sputum culture, 12/25/2024: Staphylococcus aureus Urine culture, 01/04/2025: Urinalysis, 12/17/2024: Unremarkable Urine drug screening, 12/17/2024: Benzo Valproic acid, 12/17/2024: 22.1 Plasma alcohol, 12/17/2024: <3 ABG, 12/18/2024: Respiratory acidosis, 12/20/2024: Acidosis, 12/22/2024: Hypoxia, 12/24/2024: Hypoxia, carbon dioxide retention, 12/25/2024: Hypoxia, carbon dioxide retention, 12/29/2024: Hypoxia, carbon dioxide retention WBC/HB/PLT/MCV, 12/20/2024: 8/12.4/233/90.4 CMP 12/18/2024: Unremarkable TBI/AST/ALT/AP, 12/20/2024: 0.7/44/45/143 EEG, 12/19/2019 10/26/24 13:15: Normal EEG, 12/23/2024: Moderately abnormal EEG Bronchoscopy 01/12/25: There were copious blood tinged secretions in the airways bilaterally Chest x-ray 12/18/2024: Endotracheal tube 0.7 cm above the rogers. Nasogastric tube in the proximal stomach Chest x-ray, 12/27/2024: 1. Stable mild multifocal bilateral pulmonary airspace disease, most notably at the lung bases. 2. Lines and tubes unchanged Chest x-ray, 12/29/2024: 1. Stable cardiomegaly, bilateral pleural effusions and moderate diffuse increased prominence of the pulmonary vasculature. 2. Right basilar pulmonary airspace disease. 3. Interval retraction of endotracheal tube as above. Remaining lines and tubes unchanged CT head, 12/17/2024: No evidence of acute intracranial abnormality. If symptoms persist, consider MRI for further evaluation MR head, 12/21/2024: No evidence of acute infarction, intracranial hemorrhage, mass effect or hydrocephalus. No evidence of mesial temporal sclerosis. Pansinusitis. Prominent bilateral cervical lymph nodes. This can be further evaluated with ultrasound vital signs Vital Sign Date Time Temp Pulse Resp B/P (MAP) Pulse Ox O2 Delivery O2 Flow Rate FiO2 01/06/25 10:19 76 20 108/59 (75) 92 60 01/06/25 08:00 Mechanical Ventilator+ 01/06/25 04:00 98.4 98.4 Total Intake and Output 01/05/25 01/05/25 01/06/25 14:59 22:59 06:59 Intake Total 914.61 ml 1745.3 ml 1060.8 ml Output Total 3700 ml 1100 ml Balance 914.61 ml -1954.7 ml -39.2 ml medications Current Medications Medications Dose Ordered Sig/Rick Route Start Time Stop Time Status Last Admin Dose Admin Lorazepam 1 mg Q5MINP PRN IV 12/18/24 11:00 12/23/24 08:43 1 MG Midazolam HCl 50 ml @ 1 mls/hr Q24H IV 12/18/24 21:15 01/06/25 06:15 9 MLS/HR Diagnostic Test (Pha) 1 strip Q6HR 12/19/24 12:00 01/06/25 05:23 1 STRIP Insulin Human Regular FOLLOW SLIDING SCALE Q6HR SC 12/19/24 12:00 Dextrose 50 ml UD IV 12/19/24 10:00 12/22/24 23:25 50 ML Albuterol 2.5 mg Q6HR NEB 12/19/24 18:00 01/06/25 06:41 2.5 MG Ipratropium [place] 0.5 mg Q6HR NEB 12/19/24 18:00 01/06/25 06:40 0.5 MG Pantoprazole Sodium 40 mg DAILY IV 12/21/24 10:00 01/05/25 09:43 40 MG Piperacillin Sod/ Tazobactam Sod 100 ml @ 25 mls/hr Q6HR IV 12/21/24 12:00 01/06/25 05:19 25 MLS/HR Polyethylene Glycol 17 gm DAILY PO 12/22/24 10:00 01/04/25 10:24 17 GM Docusate Sodium 100 mg BID GT 12/22/24 10:00 01/05/25 21:44 100 MG Thiamine HCl 100 mg DAILY IV 12/24/24 10:00 01/05/25 09:44 100 MG Folic Acid 1 mg/ Dextrose 50.2 ml @ 200.8 mls/ hr DAILY INJ 12/24/24 10:00 01/05/25 10:29 200.8 MLS/HR Sodium Chloride 10 ml QSHIFT@10,22 IV 12/24/24 22:00 01/05/25 21:27 10 ML Vancomycin HCl 0 ml @ 0 mls/hr UD IV 12/27/24 16:45 Enteral Nutritional Formula 1,000 ml 40ML/HR GT 12/27/24 16:45 01/04/25 15:41 1,000 ML Lactulose 15 ml DAILY PO 12/28/24 10:00 01/04/25 10:24 15 ML Fentanyl Citrate 250 ml @ 2.5 mls/hr Q24H IV 12/28/24 02:30 01/06/25 00:13 22.5 MLS/HR Furosemide 40 mg DAILY IV 12/30/24 10:00 01/05/25 09:44 40 MG Vancomycin HCl 200 ml @ 200 mls/hr Q6H IV 12/30/24 20:00 01/06/25 08:54 200 MLS/HR Levetiracetam 750 mg/Dextrose 107.5 ml @ 430 mls/hr BID IV 12/30/24 22:00 01/05/25 21:27 430 MLS/HR Acetaminophen 625 mg Q8HPRN PRN GT 12/31/24 16:00 01/05/25 00:32 625 MG Enoxaparin Sodium 40 mg Q12HP SC 01/05/25 22:00 01/05/25 21:44 40 MG Propofol 100 ml @ 4.11 mls/hr Q24H IV 01/05/25 15:45 01/06/25 09:19 41.1 MLS/HR objective The patient is well-nourished and well-developed with no distress. The patient is intubated MENTAL STATUS: Subjective CRANIAL NERVES: Pupils are equal, round and nonreactive, small. There are corneal reflexes and doll's eyes phenomenon (see subjective). No signs of facial weakness. There are gagging or coughing reflexes SENSATION: Responses to pain stimuli. MOTOR: Normal tone in the upper and lower extremity. Normal muscle bulk. No fasciculations. No spontaneous movement in the arms and the legs REFLEXES: Deep tendon reflexes are symmetrical. No pathological reflexes. CEREBELLAR/COORDINATION: Deferred GAIT/STATION: deferred laboratory and microbiology Laboratory Tests 01/06/25 04:00 Test 01/06/25 04:00 Range/Units Serum Glucose 98 74-106 mg/dL Problem List Come Metabolic encephalopathy Hypoxic encephalopathy Toxic encephalopathy ? Status epileptics New onset seizure, status epileptics Likely secondary to substance abuse Rule out epileptic seizure or other acute symptomatic seizure The activity witnessed on 12/23/2024 was not typical to seizure, likely myoclonus Substance abuse ? Depression Respiratory failure/hypoxia Pneumonia Assessment/Plan Monitoring Supportive treatment Telemetry Follow-up lab ICU care Stabilize vitals/pressor drip Respiratory support/vent management Ativan for seizure breakthrough Cut down Keppra to 500 mg IV b.i.d. , he may not need preventive seizure treatment Need history from him directly Consider tele psych consultation Re: The previous substance abuse later More recommendation per clinical course This medical document was created using an electronic medical record system with [employer] dictation system. Although this document has been carefully reviewed, there may still be some phonetic and typographical errors. These areas are purely typographical due to imperfections of the software programs, and do not reflect any compromise in the patient's medical care. Prognosis guarded Dietary Evaluation Review Comments: 1) Continue TPN to meet at least 75% estimated needs 2) TF Vital High Protein @ 60ml/hr(goal) with current rate of propofol. TF at goal volume together with propofol provides 2471 kcal (100% eenrgy needs) & 126 gm protein (100% protein needs) 3) Monitor TPN tolerance, lab values, I/O, wt trend Expected Outcomes/Goals: To meet >75% estimated needs Fu 2-3 days Plan discussed with: Other BONNY PEREZ MD Jan 06, 2025 10:43
--- NOTE | 2025-01-06 12:00 | DVHPN2 ---
Progress Note Date Seen: Jan 06, 2025 Medical Necessity Reason Pt with a Central, PICC or Fol: Yes The following are medically ne: Reed Catheter Reason for reed catheter: Strict I&O Objective vital signs Vital Sign Date Time Temp Pulse Resp B/P (MAP) Pulse Ox O2 Delivery O2 Flow Rate FiO2 01/06/25 11:43 106/55 01/06/25 11:15 69 20 92 01/06/25 10:19 60 01/06/25 10:00 Mechanical Ventilator+ 01/06/25 08:00 99.0 99.0 Total Intake and Output 01/05/25 01/05/25 01/06/25 15:00 23:00 07:00 Intake Total 914.61 ml 1840.9 ml 888.2 ml Output Total 3700 ml 1100 ml Balance 914.61 ml -1859.1 ml -211.8 ml medications Current Medications Medications Dose Ordered Sig/Rick Route Start Time Stop Time Status Last Admin Dose Admin Lorazepam 1 mg Q5MINP PRN IV 12/18/24 11:00 12/23/24 08:43 1 MG Midazolam HCl 50 ml @ 1 mls/hr Q24H IV 12/18/24 21:15 01/06/25 11:43 8 MLS/HR Diagnostic Test (Pha) 1 strip Q6HR 12/19/24 12:00 01/06/25 05:23 1 STRIP Insulin Human Regular FOLLOW SLIDING SCALE Q6HR SC 12/19/24 12:00 Dextrose 50 ml UD IV 12/19/24 10:00 12/22/24 23:25 50 ML Albuterol 2.5 mg Q6HR NEB 12/19/24 18:00 01/06/25 06:41 2.5 MG Ipratropium Kin[place]re 0.5 mg Q6HR NEB 12/19/24 18:00 01/06/25 06:40 0.5 MG Pantoprazole Sodium 40 mg DAILY IV 12/21/24 10:00 01/06/25 10:32 40 MG Piperacillin Sod/ Tazobactam Sod 100 ml @ 25 mls/hr Q6HR IV 12/21/24 12:00 01/06/25 05:19 25 MLS/HR Polyethylene Glycol 17 gm DAILY PO 12/22/24 10:00 01/06/25 10:30 17 GM Docusate Sodium 100 mg BID GT 12/22/24 10:00 01/06/25 10:30 100 MG Thiamine HCl 100 mg DAILY IV 12/24/24 10:00 01/06/25 10:31 100 MG Folic Acid 1 mg/ Dextrose 50.2 ml @ 200.8 mls/ hr DAILY INJ 12/24/24 10:00 01/06/25 10:57 200.8 MLS/HR Sodium Chloride 10 ml QSHIFT@10,22 IV 12/24/24 22:00 01/06/25 10:33 10 ML Vancomycin HCl 0 ml @ 0 mls/hr UD IV 12/27/24 16:45 Enteral Nutritional Formula 1,000 ml 40ML/HR GT 12/27/24 16:45 01/04/25 15:41 1,000 ML Lactulose 15 ml DAILY PO 12/28/24 10:00 01/06/25 10:30 15 ML Fentanyl Citrate 250 ml @ 2.5 mls/hr Q24H IV 12/28/24 02:30 01/06/25 10:38 22.5 MLS/HR Furosemide 40 mg DAILY IV 12/30/24 10:00 01/06/25 10:32 40 MG Vancomycin HCl 200 ml @ 200 mls/hr Q6H IV 12/30/24 20:00 01/06/25 08:54 200 MLS/HR Acetaminophen 625 mg Q8HPRN PRN GT 12/31/24 16:00 01/05/25 00:32 625 MG Enoxaparin Sodium 40 mg Q12HP SC 01/05/25 22:00 01/06/25 10:31 40 MG Propofol 100 ml @ 4.11 mls/hr Q24H IV 01/05/25 15:45 01/06/25 11:35 41.1 MLS/HR Levetiracetam 100 ml @ 400 mls/hr BID IV 01/06/25 22:00 laboratory and microbiology Laboratory Tests 01/06/25 04:00 Test 01/06/25 04:00 Range/Units Serum Glucose 98 74-106 mg/dL Problem List/Assessment/Plan Problem List/Assessment/Plan 01/06/25 EVALUATED PATIENT FOR ELECTIVE TRACHEOSTOMY, HE IS ON FIO2 OF 50 WITH PEEP OF 6 OR SEVEN, I DO NOT MBELIEVE HE WOULD TOLERATE BREATHING ROOM AIR DURING TRACHEOSTOMY, WILL POST PONE OPERATION TILL FIO2 OF NO MORE THAT 40 AND PEEP OF 5 IS ACHIEVABLE. Plan discussed with: Other Dietary Evaluation Review Comments: 1) Continue TPN to meet at least 75% estimated needs 2) TF Vital High Protein @ 60ml/hr(goal) with current rate of propofol. TF at goal volume together with propofol provides 2471 kcal (100% eenrgy needs) & 126 gm protein (100% protein needs) 3) Monitor TPN tolerance, lab values, I/O, wt trend Expected Outcomes/Goals: To meet >75% estimated needs Fu 2-3 days OSMAN BOB MD Jan 06, 2025 12:00
--- NOTE | 2025-01-06 19:12 | DVHPNRES ---
Progress Note Date Seen: Jan 06, 2025 Resident Creating Document: STUART SAGASTUME RESIDENT Medical Necessity Reason Pt with a Central, PICC or Fol: Yes The following are medically ne: Reed Catheter Reason for reed catheter: Strict I&O Subjective Review of Systems Patient is a 24-year-old male with past medical history of hypertension, chronic pain, substance abuse disorder, who was brought in due to new onset seizures. Patient is sedated and mechanically ventilated, history was obtained from patient's mother Ms. Sabillon via telephone. According to the patient's mother, patient has been abusing laughing gas heavily for some time, patient went to by laughing gas on Friday12/15/2024 and used it with his friend where according to the friend patient consumed most of the canister. Patient's mom took him to the rehab on 12/16/2024 where he had a seizure and was taken to the hospital and subsequently discharged back to the rehab facility. On patient again started having seizures which is when he was taken to the hospital again and was subsequently intubated. Patient reported saying he is prescribed Depakote but he has been noncompliant, serum valproic levels were below therapeutic range at 22.1 Past surgical history: Denies Smoking: Uses tobacco vaporizer pen heavily daily Alcohol: Remote history of heavy alcohol use Drugs: Mother is unsure, however, notes he may have history of cocaine abuse and MDMA abuse Previously patient was living in a rented home with a roommate, for the last 1 week was living with mother. Review of systems could not be completed due to patient being sedated and mechanically ventilated. 12/18- initially patient is stable on Keppra 500 b.i.d. but on 12/18 a.m. and into p.m. patient has multiple rapid response consecutively for breakthrough seizures. First rapid response headed by Dr. Grigsby where multiple rounds of Ativan and Keppra load 1 g was given.. Thereafter patient has multiple other episodes between page patient is able to come back to baseline following commands. Finally patient has another rapid response for seizure breakthrough had a proximally 340 p.m. where [facility]y is consulted to have expert advice to control seizures. Plan is made to complete Keppra load to maximum. Second-line plan is for valproate. However on a 3rd rapid response at approximately 5 p.m. patient goes on to seizure without returning to baseline for most 45 minutes. Although vitals were stable this is classified now status epilepticus and per guidance from tele neuro intubation needed with propofol. Patient is intubated approximately 530 p.m. there is moderate difficulty due to patient's morbid obesity. Procedure note for details, appreciate RT. Once intubation medications wearing off patient is very difficult to control seizures. Advancing dosing of propofol and Versed are required to maintain RASS of-3 to -4. Levophed is required given propofol causing hypotension. Right IJ cvc inserted also with difficulty due to short and obese neck, appreciate resident physicians. OG and urinary Reed placement w some difficulty, appreciate nursing. Placement of OG, right IJ CBC, ETT confirmed by chest x- ray. Patient care level advanced to ICU. We will maintain patient at high levels of sedation until neurology evaluation in house. 12/19-patient remains on multiple sedatives control seizures. Now in ICU room 103.. Patient is getting Versed 15, propofol 40, fentanyl 250, Levophed to. Maintaining RASS goal negative for. Patient is ventilated a.c. 20/550/45%/5.0. Vitals mostly stable. Heart rate is on the bradycardia side in 50s. Blood pressure stable with Levophed to maps low 70s. We will continue RASS-4 until neurology review tomorrow in house. Patient has been NPO for few days because of seizures, no bowel sounds today. Out of caution we will do TPN for today deferring enteral feeds until patient is on lower sedation. 12/21/24: Patient seen and examined at bedside. Noted to have some fevers and mild increase in leukocytosis, started on IV Zosyn. Mom and sister at bedside, details of illness explained, all questions answered and concerns addressed. 12/22/24: Patient seen and examined, plan to cpap trial tomorrow. 12/23/24: Overnight when Versed was decreased, patient was noted to have 3 seizures and then another seizure in the a.m., resumed Versed at 14 micrograms/hour. CPAP trial could not be completed. Added vancomycin. 12/24/2024: No further seizures. When down on fentanyl to 275, Versed 213, off of propofol right now. Patient is somewhat responsive and we will periodically move extremities. Chest x-ray showed slight improvement in bilateral effusions and stable airspace disease. Discontinued vancomycin. Creatinine kinase decreased to 1263. 12/25/24 -no significant changes. We will repeat a CK level. PICC line dislodged he will be replaced over guidewire. Electrolyte replacements.. We will maintain in deep sedation until week day for re-evaluation by Neurology for recurrent seizures. Vital signs are stable. Patient currently on fentanyl, Versed 8, propofol 30, fentanyl 200.. Patient is getting feeds Vital HP. Urine output dark brown. Ventilated a.c. 20/550/45%/5.0.. Patient is still having fevers and has required increasing amounts of oxygen saturation to maintain saturates. We will repeat blood cultures and sputum cultures, appreciate respiratory and obtaining that. 12/26/2024.-pulmonology plans for bronch today. ABG good. X-ray pending. We will continue sedatives given primary team's directives. Fentanyl 150 Versed 7 propofol 45. Clinimix,. Continuing IV antibiotics. Urine output adequate. Vitals stable no vasopressors map more than 75. On mechanical ventilation. A.c./20/5 50/50%/5.0.. We will continue sedation and sedation vacation trial tomorrow morning when primary returns. Update--after bronch we will try sedation vacation maximum 3-4 hours if he is doing well. Continue sedatives if any seizure activity is noted. We will try another sedation vacation tomorrow morning for primary to evaluate. 12/27/24: resumed vancomycin and tube feedings, started lactulose. increased PEEP to 8. went down on fentanyl to 150, versed 7 and prop 45. 12/28/2024: Continues to have low-grade fever, on FiO2 100% saturating in the early 90s, peak pressure 29 mmHg. Scheduled for repeat bronchoscopy today. 12/29/24: patient continues to have low-grade fevers, Tmax overnight 99.9. started on IV lasix 40mg daily. Detailed discussion held with patient's mother Ms. Sabillon, cousin and cousins at bedside. Possibility of trach was discussed owing to today being patients day 12 of intubation. 12/30/2024: Chest x-ray showed no change in pulmonary edema or bilateral pleural effusion, ordered CT angiography chest, however, patient unstable for transfer as FiO2 100%, started patient on therapeutic Lovenox. 12/31/24: SpO2 improving today, averaging at 97% on FiO2 100%. continues to have low grade fever. continue therapeutic lovenox. Increased PEEP from 10 to 12 01/01/25: decreased FiO2 to 30%, PEEP 10. CXR showing mild interval progression in R perihilar pulmonary airspace disease 01/04/25: decreased peep to 7, continued low grade fever, repeated blood and sputum cultures, exchanged reed. tried sedation vacation, no new seizures, followed commands. 01/05/2025: Stable bibasilar airspace disease. Decreased Lovenox to 40 mg b.i.d., 1 dose of IV Lasix. Decrease PEEP to 6. Possible tracheostomy tomorrow 01/06/25: increased peep to 8. fio2 60%, not stable fro tracheostomy. Objective vital signs Vital Sign Date Time Temp Pulse Resp B/P (MAP) Pulse Ox O2 Delivery O2 Flow Rate FiO2 01/06/25 18:56 118/60 01/06/25 18:19 79 20 96 60 01/06/25 18:00 Mechanical Ventilator+ 01/06/25 16:00 99.4 99.4 Total Intake and Output 01/05/25 01/05/25 01/06/25 15:00 23:00 07:00 Intake Total 914.61 ml 1840.9 ml 960.8 ml Output Total 3700 ml 1100 ml Balance 914.61 ml -1859.1 ml -139.2 ml medications Current Medications Medications Dose Ordered Sig/Rick Route Start Time Stop Time Status Last Admin Dose Admin Lorazepam 1 mg Q5MINP PRN IV 12/18/24 11:00 12/23/24 08:43 1 MG Midazolam HCl 50 ml @ 1 mls/hr Q24H IV 12/18/24 21:15 01/06/25 17:42 9 MLS/HR Diagnostic Test (Pha) 1 strip Q6HR 12/19/24 12:00 01/06/25 17:54 1 STRIP Insulin Human Regular FOLLOW SLIDING SCALE Q6HR SC 12/19/24 12:00 Dextrose 50 ml UD IV 12/19/24 10:00 12/22/24 23:25 50 ML Albuterol 2.5 mg Q6HR NEB 12/19/24 18:00 01/06/25 18:18 2.5 MG Ipratropium Luther 0.5 mg Q6HR NEB 12/19/24 18:00 01/06/25 18:18 0.5 MG Pantoprazole Sodium 40 mg DAILY IV 12/21/24 10:00 01/06/25 10:32 40 MG Piperacillin Sod/ Tazobactam Sod 100 ml @ 25 mls/hr Q6HR IV 12/21/24 12:00 01/06/25 17:41 25 MLS/HR Polyethylene Glycol 17 gm DAILY PO 12/22/24 10:00 01/06/25 10:30 17 GM Docusate Sodium 100 mg BID GT 12/22/24 10:00 01/06/25 10:30 100 MG Thiamine HCl 100 mg DAILY IV 12/24/24 10:00 01/06/25 10:31 100 MG Folic Acid 1 mg/ Dextrose 50.2 ml @ 200.8 mls/ hr DAILY INJ 12/24/24 10:00 01/06/25 10:57 200.8 MLS/HR Sodium Chloride 10 ml QSHIFT@10,22 IV 12/24/24 22:00 01/06/25 10:33 10 ML Vancomycin HCl 0 ml @ 0 mls/hr UD IV 12/27/24 16:45 Enteral Nutritional Formula 1,000 ml 40ML/HR GT 12/27/24 16:45 01/04/25 15:41 1,000 ML Lactulose 15 ml DAILY PO 12/28/24 10:00 01/06/25 10:30 15 ML Fentanyl Citrate 250 ml @ 2.5 mls/hr Q24H IV 12/28/24 02:30 01/06/25 10:38 22.5 MLS/HR Furosemide 40 mg DAILY IV 12/30/24 10:00 01/06/25 10:32 40 MG Vancomycin HCl 200 ml @ 200 mls/hr Q6H IV 12/30/24 20:00 01/06/25 14:02 200 MLS/HR Acetaminophen 625 mg Q8HPRN PRN GT 12/31/24 16:00 01/05/25 00:32 625 MG Enoxaparin Sodium 40 mg Q12HP SC 01/05/25 22:00 01/06/25 10:31 40 MG Propofol 100 ml @ 4.11 mls/hr Q24H IV 01/05/25 15:45 01/06/25 18:56 41.1 MLS/HR Levetiracetam 100 ml @ 400 mls/hr BID IV 01/06/25 22:00 Examination General Appearance: Sedated and mechanically ventilated obese adult. Constricted pupils. noted to have swollen tongue, no stridor Pulmonary/Respiratory: Coarse bilateral breath sounds Cardiovascular/Chest: Tachycardia Peripheral Pulses: 2+ Pedal (R). 2+ Pedal (L) Abdominal Exam: Normal bowel sounds. Soft. normal abdomen, no visible veins, Nontender. No hepatospenomegaly. No masses Lower extremities: Negative lower extremity edema Skin Exam: Normal inspection. Normal color. Dry. warm laboratory and microbiology Laboratory Tests 01/06/25 04:00 Test 01/06/25 04:00 Range/Units Serum Glucose 98 74-106 mg/dL Microbiology Date/Time Source Procedure Growth Status 01/04/25 18:35 Blood Blood Culture - Preliminary NO GROWTH AFTER 48 HOURS OF INCUBATION. Resulted 01/04/25 18:15 Sputum Gram Stain - Final Complete 01/04/25 18:15 Respiratory Culture - Final Staphylococcus aureus Complete 01/04/25 17:00 Urine - Reed Port Urine Culture - Preliminary Resulted 12/25/24 15:20 Catheter Site Aerobic Culture - Final Staphylococcus epidermidis Complete Labs and/or images reviewed: Labs reviewed by me, Image(s) reviewed by me Problem List/Assessment/Plan Problem List/Assessment/Plan Neurology # acute likely toxic versus metabolic encephalopathy # new onset? Breakthrough grand mal seizures # medication nonadherence # possible alcohol withdrawal, unable to calculate CIWA # Sedated - Versed 8 - fentanyl 200 - proprofol 50 - serum valproic acid levels below normal 22.1 - IV levetiracetam 1500 mg b.i.d. - IV lorazepam as needed for seizures - head CT: No evidence of acute intracranial abnormality. If symptoms persist, consider MRI for further evaluation. - neurology on board - brain MRI: No evidence of acute infarction, intracranial hemorrhage, mass effect or hydrocephalus. No effects of mesial temporal sclerosis. Pansinusitis. Prominent bilateral cervical lymph nodes. - last seizure 12/23/2024 - brain EEG largely unremarkable - IV banana bag x2, IV thiamine, IV folic acid Cardiovascular # essential hypertension # sepsis secondary to aspiration pneumonia - stopped IV NS at 60 cc/hour Respiratory # Acute hypoxic respiratory failure secondary to intractable seizures # probable aspiration pneumonia, cultures growing MSSA # Ventilator # pulmonary edema # b/l pleural effusion # ?pulmonary embolism - intubated 12/18/2024 - on [facility] vent : VCAC Mode RR 20 TV 550ml, PEEP Of 10 and FiO2 of 90% - ipratropium and albuterol med nebs - CXR: Hypoinflated lungs with bibasilar atelectasis - started on IV Zosyn 12/21/2024 - started IV vancomycin per pharmacy on 12/23/2024, discontinued vancomycin on 12/24/2024 - resumed vancomycin on 12/27/24 - CXR 12/29/24: Stable cardiomegaly, bilateral pleural effusions and moderate diffuse increased prominence of the pulmonary vasculature. Right basilar pulmonary airspace disease. - IV lasix 40mg daily - ordered CT angiography chest - therapeutic Lovenox - ordered repeat lower extremity Doppler; no DVT - repeat blood culture grew staph aureus GI # transaminitis # Peptic ulcer prophylaxis # vitamin B12 deficiency # constipation, likely slow transit -Pantoprazole 40 mg IV daily - negative hepatitis-B and hepatitis-C - repleted with 1000 mcg B12 - lactulose daily - KUB: Nonobstructive bowel gas pattern. Moderate stool burden. # Reed catheter placed on 12/18/2024 Nephrology # hypernatremia, now improved # hypokalemia, now improved - serum creatinine 2159 on 12/23/2024, 1263 on 12/24/2024 - monitor Infectious disease # aspiration pneumonia # sepsis due to above # right IJ catheter tip (placed on 12/18/2024, removed on 12/24/2024) culture growing staph epidermidis - pancultures - IV Zosyn - IV vancomycin - Tylenol as needed for fever - s/p bronchoscopy x 2 - repeat blood cultures, repeat sputum cultures Hem/onc # microcytic anemia, mild - monitor Psychiatry # substance use disorder - we will consider Psychiatry consult once patient is extubated DVT prophylaxis On Lovenox 40 mg b.i.d. Nutrition - tube feedings started on 12/21/2024 Lines Right PICC placed on 12/24/24 Left arm 20 gauge placed on 12/17/2024 Drips - Versed 8 - fentanyl 200 - propofol 50 Intubated on 12/18/2024 Bronchoscopy on 12/26/24 Repeat bronchoscopy on 12/28/2024 Reed on 01/04/2025 on [facility] vent : VCAC Mode RR 20 TV 550ml, PEEP Of 6 and FiO2 of 30% Critical care time 86 minutes excluding procedure. Code status discussed greater than 20 minutes: Full CODE STATUS. Plan discussed with Dr. Iqbal Detailed discussion held with patient's mother Ms. Sabillon at bedside. Possibility of trach was discussed again Plan discussed with: Other (mother, RN) My Orders My Orders Orders - STUART SAGASTUME Procedure Category Date Status Time Ventilator Orders RT 01/05/25 Transmitted 19:18 Creatinine LAB 01/07/25 Verified 04:00 Vancomycin Per JADIEL 01/07/25 In Process Pharmacy Protoc 14:00 Vancomycin,Trough LAB 01/07/25 Verified 13:00 Dietary Evaluation Review Comments: 1) Continue TPN to meet at least 75% estimated needs 2) TF Vital High Protein @ 60ml/hr(goal) with current rate of propofol. TF at goal volume together with propofol provides 2471 kcal (100% eenrgy needs) & 126 gm protein (100% protein needs) 3) Monitor TPN tolerance, lab values, I/O, wt trend Expected Outcomes/Goals: To meet >75% estimated needs Fu 2-3 days Date of Service: Jan 06, 2025 Billing Provider: ANTHONY IQBAL MD Common Visit Codes: 76002-JAATDMEF CARE 30-74 MIN, 14833-[id number] CARE-EACH +30MIN STUART SAGASTUME Jan 06, 2025 19:12 ANTHONY IQBAL MD Jan 08, 2025 12:53
[2025-01-06] MEDS: levETIRAcetam 500 mg/100ml 100 ML IV SCH (22:18)
[2025-01-07] VITALS (109 sets, daily range): BP systolic 98–145; BP diastolic 44–87; PULSE 59–89; RESP 13–25; TEMP 98–99.8; O2SAT 90–99
[2025-01-07 04:09] LABS: Hematocrit 31.3 % (41.0-53.0); Hemoglobin 10.7 g/dL (13.5-17.5); Mean Corpuscular Hemoglobin 30.3 pg (28.0-32.0); Mean Corpuscular Volume 88.8 fL (80.0-100.0)
[2025-01-07 04:10] LABS: Anion Gap 10 (5-15); BUN/Creatinine Ratio 25.0 (10.0-20.0); Blood Urea Nitrogen 10 mg/dL (9-23); Calcium 9.4 mg/dL (8.7-10.4); Carbon Dioxide 27 mmol/L (20-31); Chloride 104 mmol/L (98-107); Glucose 95 mg/dL (74-106); Sodium 141 mmol/L (136-145); Total Protein 7.0 g/dL (5.7-8.2)
[2025-01-07 04:11] LABS: Albumin 4.0 g/dL (3.2-4.8)
[2025-01-07 04:24] LABS: Alanine Aminotransferase 57 U/L (7-40); Alkaline Phosphatase 130 U/L (46-116); Bilirubin, Total 0.3 mg/dL (0.2-1.0); Potassium 3.3 mmol/L (3.5-5.1)
[2025-01-07] MEDS: POTASSIUM CHL 20MEQ/100ML 100 ML IV SCH (05:14)
[2025-01-07 05:24] LABS: Total Cells Counted 100.0 (100)
[2025-01-07] MEDS: fentaNYL Drip 2500mCg/250mlNS 250 ML IV SCH (05:57)
--- NOTE | 2025-01-07 05:57 | DVH ---
CHEST RADIOGRAPH Indication: pna Technique: Single frontal view of the chest was obtained COMPARISON: XY CHEST PORTABLE on DOS: 01/06/25, XY CHEST PORTABLE on DOS: 01/05/25, XY CHEST PORTABLE o n DOS: 01/04/25, XY CHEST PORTABLE on DOS: 01/03/25, XY CHEST PORTABLE on DOS: 01/02/25 FINDINGS: Lines and Tubes: Slight interval advancement of the endotracheal tube such that the tip now projects approximately 1.8 cm above the level of the rogers. Remaining lines and tubes unchanged. Lungs: Stable diffuse increased prominence of the pulmonary vasculature and small bilateral pleural e ffusions. No pneumothorax. Cardiomediastinal contours: Cardiomegaly. Bones: Unremarkable IMPRESSION: 1. Stable diffuse increased prominence of the pulmonary vasculature and small bilateral pleural effus ions. 2. Slight interval advancement of the endotracheal tube as above. Remaining lines and tubes unchange d.
[2025-01-07 06:34] LABS: Base Excess -0.4 mmol/L (-2.0-3.0)
--- NOTE | 2025-01-07 10:35 | DVHPNRES ---
Progress Note Date Seen: Jan 07, 2025 Resident Creating Document: STUART SAGASTUME RESIDENT Medical Necessity Reason Pt with a Central, PICC or Fol: Yes The following are medically ne: Reed Catheter Reason for reed catheter: Strict I&O Subjective Review of Systems Patient is a 24-year-old male with past medical history of hypertension, chronic pain, substance abuse disorder, who was brought in due to new onset seizures. Patient is sedated and mechanically ventilated, history was obtained from patient's mother Ms. Sabillon via telephone. According to the patient's mother, patient has been abusing laughing gas heavily for some time, patient went to by laughing gas on Friday12/15/2024 and used it with his friend where according to the friend patient consumed most of the canister. Patient's mom took him to the rehab on 12/16/2024 where he had a seizure and was taken to the hospital and subsequently discharged back to the rehab facility. On patient again started having seizures which is when he was taken to the hospital again and was subsequently intubated. Patient reported saying he is prescribed Depakote but he has been noncompliant, serum valproic levels were below therapeutic range at 22.1 Past surgical history: Denies Smoking: Uses tobacco vaporizer pen heavily daily Alcohol: Remote history of heavy alcohol use Drugs: Mother is unsure, however, notes he may have history of cocaine abuse and MDMA abuse Previously patient was living in a rented home with a roommate, for the last 1 week was living with mother. Review of systems could not be completed due to patient being sedated and mechanically ventilated. 12/18- initially patient is stable on Keppra 500 b.i.d. but on 12/18 a.m. and into p.m. patient has multiple rapid response consecutively for breakthrough seizures. First rapid response headed by Dr. Grigsby where multiple rounds of Ativan and Keppra load 1 g was given.. Thereafter patient has multiple other episodes between page patient is able to come back to baseline following commands. Finally patient has another rapid response for seizure breakthrough had a proximally 340 p.m. where [facility] neurology is consulted to have expert advice to control seizures. Plan is made to complete Keppra load to maximum. Second-line plan is for valproate. However on a 3rd rapid response at approximately 5 p.m. patient goes on to seizure without returning to baseline for most 45 minutes. Although vitals were stable this is classified now status epilepticus and per guidance from tele neuro intubation needed with propofol. Patient is intubated approximately 530 p.m. there is moderate difficulty due to patient's morbid obesity. Procedure note for details, appreciate RT. Once intubation medications wearing off patient is very difficult to control seizures. Advancing dosing of propofol and Versed are required to maintain RASS of-3 to -4. Levophed is required given propofol causing hypotension. Right IJ cvc inserted also with difficulty due to short and obese neck, appreciate resident physicians. OG and urinary Reed placement w some difficulty, appreciate nursing. Placement of OG, right IJ CBC, ETT confirmed by chest x- ray. Patient care level advanced to ICU. We will maintain patient at high levels of sedation until neurology evaluation in house. 12/19-patient remains on multiple sedatives control seizures. Now in ICU room 103.. Patient is getting Versed 15, propofol 40, fentanyl 250, Levophed to. Maintaining RASS goal negative for. Patient is ventilated a.c. 20/550/45%/5.0. Vitals mostly stable. Heart rate is on the bradycardia side in 50s. Blood pressure stable with Levophed to maps low 70s. We will continue RASS-4 until neurology review tomorrow in house. Patient has been NPO for few days because of seizures, no bowel sounds today. Out of caution we will do TPN for today deferring enteral feeds until patient is on lower sedation. 12/21/24: Patient seen and examined at bedside. Noted to have some fevers and mild increase in leukocytosis, started on IV Zosyn. Mom and sister at bedside, details of illness explained, all questions answered and concerns addressed. 12/22/24: Patient seen and examined, plan to cpap trial tomorrow. 12/23/24: Overnight when Versed was decreased, patient was noted to have 3 seizures and then another seizure in the a.m., resumed Versed at 14 micrograms/hour. CPAP trial could not be completed. Added vancomycin. 12/24/2024: No further seizures. When down on fentanyl to 275, Versed 213, off of propofol right now. Patient is somewhat responsive and we will periodically move extremities. Chest x-ray showed slight improvement in bilateral effusions and stable airspace disease. Discontinued vancomycin. Creatinine kinase decreased to 1263. 12/25/24 -no significant changes. We will repeat a CK level. PICC line dislodged he will be replaced over guidewire. Electrolyte replacements.. We will maintain in deep sedation until week day for re-evaluation by Neurology for recurrent seizures. Vital signs are stable. Patient currently on fentanyl, Versed 8, propofol 30, fentanyl 200.. Patient is getting feeds Vital HP. Urine output dark brown. Ventilated a.c. 20/550/45%/5.0.. Patient is still having fevers and has required increasing amounts of oxygen saturation to maintain saturates. We will repeat blood cultures and sputum cultures, appreciate respiratory and obtaining that. 12/26/2024.-pulmonology plans for bronch today. ABG good. X-ray pending. We will continue sedatives given primary team's directives. Fentanyl 150 Versed 7 propofol 45. Clinimix,. Continuing IV antibiotics. Urine output adequate. Vitals stable no vasopressors map more than 75. On mechanical ventilation. A.c./20/5 50/50%/5.0.. We will continue sedation and sedation vacation trial tomorrow morning when primary returns. Update--after bronch we will try sedation vacation maximum 3-4 hours if he is doing well. Continue sedatives if any seizure activity is noted. We will try another sedation vacation tomorrow morning for primary to evaluate. 12/27/24: resumed vancomycin and tube feedings, started lactulose. increased PEEP to 8. went down on fentanyl to 150, versed 7 and prop 45. 12/28/2024: Continues to have low-grade fever, on FiO2 100% saturating in the early 90s, peak pressure 29 mmHg. Scheduled for repeat bronchoscopy today. 12/29/24: patient continues to have low-grade fevers, Tmax overnight 99.9. started on IV lasix 40mg daily. Detailed discussion held with patient's mother Ms. Sabillon, cousin and cousins at bedside. Possibility of trach was discussed owing to today being patients day 12 of intubation. 12/30/2024: Chest x-ray showed no change in pulmonary edema or bilateral pleural effusion, ordered CT angiography chest, however, patient unstable for transfer as FiO2 100%, started patient on therapeutic Lovenox. 12/31/24: SpO2 improving today, averaging at 97% on FiO2 100%. continues to have low grade fever. continue therapeutic lovenox. Increased PEEP from 10 to 12 01/01/25: decreased FiO2 to 30%, PEEP 10. CXR showing mild interval progression in R perihilar pulmonary airspace disease 01/04/25: decreased peep to 7, continued low grade fever, repeated blood and sputum cultures, exchanged reed. tried sedation vacation, no new seizures, followed commands. 01/05/2025: Stable bibasilar airspace disease. Decreased Lovenox to 40 mg b.i.d., 1 dose of IV Lasix. Decrease PEEP to 6. Possible tracheostomy tomorrow 01/06/25: increased peep to 8. fio2 60%, not stable fro tracheostomy. 01/07/25: ordered CTAP, went down on FiO2 to 50% Objective vital signs Vital Sign Date Time Temp Pulse Resp B/P (MAP) Pulse Ox O2 Delivery O2 Flow Rate FiO2 01/07/25 10:16 64 20 114/60 (78) 99 60 01/07/25 08:00 Mechanical Ventilator+ 01/07/25 08:00 98.0 98.0 Total Intake and Output 01/06/25 01/06/25 01/07/25 15:00 23:00 07:00 Intake Total 743.7 ml 1817.8 ml 1243.8 ml Output Total 2375 ml 1100 ml Balance 743.7 ml -557.2 ml 143.8 ml medications Current Medications Medications Dose Ordered Sig/Rick Route Start Time Stop Time Status Last Admin Dose Admin Lorazepam 1 mg Q5MINP PRN IV 12/18/24 11:00 12/23/24 08:43 1 MG Midazolam HCl 50 ml @ 1 mls/hr Q24H IV 12/18/24 21:15 01/07/25 08:29 9 MLS/HR Diagnostic Test (Pha) 1 strip Q6HR 12/19/24 12:00 01/07/25 06:04 1 STRIP Insulin Human Regular FOLLOW SLIDING SCALE Q6HR SC 12/19/24 12:00 Dextrose 50 ml UD IV 12/19/24 10:00 12/22/24 23:25 50 ML Albuterol 2.5 mg Q6HR NEB 12/19/24 18:00 01/07/25 06:15 2.5 MG Ipratropium Armstrong 0.5 mg Q6HR NEB 12/19/24 18:00 01/07/25 06:15 0.5 MG Pantoprazole Sodium 40 mg DAILY IV 12/21/24 10:00 01/07/25 09:44 40 MG Piperacillin Sod/ Tazobactam Sod 100 ml @ 25 mls/hr Q6HR IV 12/21/24 12:00 01/07/25 05:13 25 MLS/HR Polyethylene Glycol 17 gm DAILY PO 12/22/24 10:00 01/07/25 09:44 17 GM Docusate Sodium 100 mg BID GT 12/22/24 10:00 01/07/25 09:44 100 MG Thiamine HCl 100 mg DAILY IV 12/24/24 10:00 01/07/25 09:46 100 MG Folic Acid 1 mg/ Dextrose 50.2 ml @ 200.8 mls/ hr DAILY INJ 12/24/24 10:00 01/07/25 09:48 200.8 MLS/HR Sodium Chloride 10 ml QSHIFT@10,22 IV 12/24/24 22:00 01/07/25 10:12 10 ML Vancomycin HCl 0 ml @ 0 mls/hr UD IV 12/27/24 16:45 Enteral Nutritional Formula 1,000 ml 40ML/HR GT 12/27/24 16:45 01/06/25 20:27 1,000 ML Lactulose 15 ml DAILY PO 12/28/24 10:00 01/07/25 09:44 15 ML Fentanyl Citrate 250 ml @ 2.5 mls/hr Q24H IV 12/28/24 02:30 01/07/25 08:24 2.5 MLS/HR Furosemide 40 mg DAILY IV 12/30/24 10:00 01/07/25 09:46 40 MG Vancomycin HCl 200 ml @ 200 mls/hr Q6H IV 12/30/24 20:00 01/07/25 08:30 200 MLS/HR Acetaminophen 625 mg Q8HPRN PRN GT 12/31/24 16:00 01/05/25 00:32 625 MG Enoxaparin Sodium 40 mg Q12HP SC 01/05/25 22:00 01/07/25 09:45 40 MG Propofol 100 ml @ 4.11 mls/hr Q24H IV 01/05/25 15:45 01/07/25 08:22 41.1 MLS/HR Levetiracetam 100 ml @ 400 mls/hr BID IV 01/06/25 22:00 01/07/25 09:43 400 MLS/HR Examination General Appearance: Sedated and mechanically ventilated obese adult. Constricted pupils. noted to have swollen tongue, no stridor Pulmonary/Respiratory: Coarse bilateral breath sounds Cardiovascular/Chest: Tachycardia Peripheral Pulses: 2+ Pedal (R). 2+ Pedal (L) Abdominal Exam: Normal bowel sounds. Soft. normal abdomen, no visible veins, Nontender. No hepatospenomegaly. No masses Lower extremities: Negative lower extremity edema Skin Exam: Normal inspection. Normal color. Dry. warm laboratory and microbiology Laboratory Tests 01/07/25 03:15 Test 01/07/25 03:15 Range/Units Serum Glucose 95 74-106 mg/dL Microbiology Date/Time Source Procedure Growth Status 01/04/25 18:35 Blood Blood Culture - Preliminary NO GROWTH AFTER 48 HOURS OF INCUBATION. Resulted 01/04/25 18:15 Sputum Gram Stain - Final Complete 01/04/25 18:15 Respiratory Culture - Final Staphylococcus aureus Complete 01/04/25 17:00 Urine - Reed Port Urine Culture - Final Complete 12/25/24 15:20 Catheter Site Aerobic Culture - Final Staphylococcus epidermidis Complete Labs and/or images reviewed: Labs reviewed by me, Image(s) reviewed by me Problem List/Assessment/Plan Problem List/Assessment/Plan Neurology # acute likely toxic versus metabolic encephalopathy # new onset? Breakthrough grand mal seizures # medication nonadherence # possible alcohol withdrawal, unable to calculate CIWA # Sedated - Versed 8 - fentanyl 200 - proprofol 50 - serum valproic acid levels below normal 22.1 - IV levetiracetam 1500 mg b.i.d. - IV lorazepam as needed for seizures - head CT: No evidence of acute intracranial abnormality. If symptoms persist, consider MRI for further evaluation. - neurology on board - brain MRI: No evidence of acute infarction, intracranial hemorrhage, mass effect or hydrocephalus. No effects of mesial temporal sclerosis. Pansinusitis. Prominent bilateral cervical lymph nodes. - last seizure 12/23/2024 - brain EEG largely unremarkable - IV banana bag x2, IV thiamine, IV folic acid Cardiovascular # essential hypertension # sepsis secondary to aspiration pneumonia - stopped IV NS at 60 cc/hour Respiratory # Acute hypoxic respiratory failure secondary to intractable seizures # probable aspiration pneumonia, cultures growing MSSA # Ventilator # pulmonary edema # b/l pleural effusion # ?pulmonary embolism - intubated 12/18/2024 - on [facility] vent : VCAC Mode RR 20 TV 550ml, PEEP Of 10 and FiO2 of 90% - ipratropium and albuterol med nebs - CXR: Hypoinflated lungs with bibasilar atelectasis - started on IV Zosyn 12/21/2024 - started IV vancomycin per pharmacy on 12/23/2024, discontinued vancomycin on 12/24/2024 - resumed vancomycin on 12/27/24 - CXR 12/29/24: Stable cardiomegaly, bilateral pleural effusions and moderate diffuse increased prominence of the pulmonary vasculature. Right basilar pulmonary airspace disease. - IV lasix 40mg daily - ordered CT angiography chest - therapeutic Lovenox - ordered repeat lower extremity Doppler; no DVT - repeat blood culture grew staph aureus GI # transaminitis # Peptic ulcer prophylaxis # vitamin B12 deficiency # constipation, likely slow transit -Pantoprazole 40 mg IV daily - negative hepatitis-B and hepatitis-C - repleted with 1000 mcg B12 - lactulose daily - KUB: Nonobstructive bowel gas pattern. Moderate stool burden. # Reed catheter placed on 12/18/2024 Nephrology # hypernatremia, now improved # hypokalemia, now improved - serum creatinine 2159 on 12/23/2024, 1263 on 12/24/2024 - monitor Infectious disease # aspiration pneumonia # sepsis due to above # right IJ catheter tip (placed on 12/18/2024, removed on 12/24/2024) culture growing staph epidermidis - pancultures - IV Zosyn - IV vancomycin - Tylenol as needed for fever - s/p bronchoscopy x 2 - repeat blood cultures, repeat sputum cultures Hem/onc # microcytic anemia, mild - monitor Psychiatry # substance use disorder - we will consider Psychiatry consult once patient is extubated DVT prophylaxis On Lovenox 40 mg b.i.d. Nutrition - tube feedings started on 12/21/2024 Lines Right PICC placed on 12/24/24 Left arm 20 gauge placed on 12/17/2024 Drips - Versed 8 - fentanyl 200 - propofol 50 Intubated on 12/18/2024 Bronchoscopy on 12/26/24 Repeat bronchoscopy on 12/28/2024 Reed on 01/04/2025 on [facility] vent : VCAC Mode RR 20 TV 550ml, PEEP Of 6 and FiO2 of 30% Critical care time 86 minutes excluding procedure. Code status discussed greater than 20 minutes: Full CODE STATUS. Plan discussed with Dr. Tolentino Detailed discussion held with patient's mother Ms. Sabillon at bedside. Possibility of trach was discussed again Plan discussed with: Other (mother, RN) My Orders My Orders Orders - STUART SAGASTUME RESIDENT Procedure Category Date Status Time Chest Portable XY 01/07/25 Resulted 04:00 Abg W/ Co-Ox RT 01/07/25 Logged 04:00 Dietary Evaluation Review Comments: 1) Continue TPN to meet at least 75% estimated needs 2) TF Vital High Protein @ 60ml/hr(goal) with current rate of propofol. TF at goal volume together with propofol provides 2471 kcal (100% eenrgy needs) & 126 gm protein (100% protein needs) 3) Monitor TPN tolerance, lab values, I/O, wt trend Expected Outcomes/Goals: To meet >75% estimated needs Fu 2-3 days STUART SAGASTUME RESIDENT Jan 07, 2025 10:35
--- NOTE | 2025-01-07 17:54 | DVHTSRES ---
Transfer Summary Transfer Summary Resident Creating Document: STUART SAGASTUME RESIDENT Date of Admission Dec 17, 2024 at 23:57 Date of Transfer: Jan 07, 2025 Brief Hx & Hospital Course: Patient: 24-year-old male PMH: Hypertension, chronic pain, substance use disorder (notably nitrous oxide), nonadherence to antiepileptics (Depakote) Presentation: New-onset seizures, likely secondary to nitrous oxide abuse. History obtained from mother (Ms. Sabillon). Patient had multiple seizures beginning 12/16/2024, culminating in status epilepticus on 12/18/2024 requiring intubation and ICU admission. Hospital Course Summary: Neurology: Diagnosis: Status epilepticus, likely toxic/metabolic encephalopathy due to nitrous oxide abuse and medication nonadherence. Seizure History: Multiple breakthrough seizures on 12/18 despite Keppra 500 mg BID. Status epilepticus declared after prolonged seizure (~45 min) without return to baseline. Intubated 12/18 with propofol; sedation escalated to control seizures. Last seizure on 12/23. Medications: IV levetiracetam 1500 mg BID IV lorazepam PRN Sedation: Propofol (weaned off), Versed (titrated), fentanyl Imaging: Head CT: No acute findings Brain MRI: No infarct, hemorrhage, or mass; pansinusitis noted EEG: Largely unremarkable Labs: Valproic acid level: 22.1 (subtherapeutic) CK peaked at 2159 on 12/23, downtrended to 1263 on 12/24 Vitamin Repletion: IV thiamine, folic acid, banana bags x2, B12 1000 mcg Respiratory: Diagnosis: Acute hypoxic respiratory failure secondary to status epilepticus and aspiration pneumonia Ventilation: Intubated 12/18 VC-AC mode: RR 20, TV 550 mL, FiO2 weaned from 100% to 30%, PEEP 6 Bronchoscopies: Performed on 12/26 and 12/28 CXR Findings: Bibasilar atelectasis, bilateral pleural effusions, pulmonary edema Mild interval progression in R perihilar airspace disease (01/01) Cultures: Sputum: MSSA Blood: Staph aureus Right IJ tip (removed 12/24): Staph epidermidis Antibiotics: IV Zosyn (started 12/21) IV vancomycin (, resumed 12/27) Other: Ipratropium/albuterol nebs Trialed sedation vacation on 01/04: no seizures, followed commands Cardiovascular: Bradycardia (HR 50s), BP supported with Levophed during deep sedation Now hemodynamically stable off pressors GI/Nutrition: NPO initially due to seizures; started on TPN Constipation: Lactulose daily, now making formed stools KUB: Moderate stool burden Pantoprazole 40 mg IV daily for ulcer prophylaxis Renal/Metabolic: Hypernatremia and hypokalemia now improved Transaminitis monitored Electrolyte repletion ongoing Infectious Disease: Diagnosis: Sepsis secondary to aspiration pneumonia Cultures: Blood and sputum positive for MSSA Antibiotics: Zosyn, vancomycin (on/off per ID guidance) Fever: Persistent low-grade fevers; Tylenol PRN Lines/Procedures: Intubated 12/18 Right IJ CVC placed 12/18, removed 12/24 (tip culture positive) PICC line dislodged 12/25, replaced over guidewire Gregg placed 01/04 OG tube placed Bronchoscopies x2 (12/26, 12/28) Other: Psychosocial: Mother (Ms. Sabillon), cousin, and cousins involved in care discussions Code Status: Full code Disposition Planning: Trach discussed on 12/29 due to prolonged intubation (day 12) Current Status (as of 01/04/2025): Vent Settings: VC-AC, RR 20, TV 550 mL, FiO2 40%, PEEP 8 Sedation: Weaning; no seizures since 12/23 Neuro: Following commands during sedation vacation Vitals: Stable Plan: Continue weaning sedation and ventilator support, monitor for seizure recurrence, evaluate for trach as soon as stable. Per surgery, ok for trach only if PEEP 5-6, FiO2 30-40% Scheduled Divalproex Sodium (Divalproex Sodium Dr), 1 TAB PO DAILY, (Reported) Escitalopram Oxalate (Escitalopram Oxalate), 1 TAB PO DAILY, (Reported) Lisinopril (Lisinopril), 10 MG PO DAILY, (Reported) Quetiapine Fumerate (Quetiapine Fumarate), 1 TAB PO DAILY, (Reported) Miscellaneous Medications Gabapentin (Gabapentin), PO, (Reported) STUART SAGASTUME RESIDENT Jan 07, 2025 17:54
--- NOTE | 2025-01-07 18:41 | DVHPN2 ---
Progress Note - Dictate Date Seen: Jan 07, 2025 Medical Necessity Reason Pt with a Central, PICC or Fol: Yes The following are medically ne: Reed Catheter Reason for reed catheter: Strict I&O Subjective Mr. Perry is a 24 years old right-handed gentleman with a history of hypertension, pain syndrome, substance abuse, he was admitted to the [facility] on 12/17/2024 for new onset seizure activity. I have seen and examined the patient, discussed with his nurses. His muscle in the room. At this time, he is only responsive to strong painful stimuli, there has minimal amount of spontaneous conjugated eye movement with eyes opened passively Fentanyl 225 mcg/hour, Versed 8 mg/hour, propofol 50 mcg/minute, FiO2: 50% Blood culture, 12/25/2024: No growth Sputum culture, 12/25/2024: Staphylococcus aureus Urine culture, 01/04/2025: Urinalysis, 12/17/2024: Unremarkable Urine drug screening, 12/17/2024: Benzo Valproic acid, 12/17/2024: 22.1 Plasma alcohol, 12/17/2024: <3 ABG, 12/18/2024: Respiratory acidosis, 12/20/2024: Acidosis, 12/22/2024: Hypoxia, 12/24/2024: Hypoxia, carbon dioxide retention, 12/25/2024: Hypoxia, carbon dioxide retention, 12/29/2024: Hypoxia, carbon dioxide retention WBC/HB/PLT/MCV, 12/20/2024: 8/12.4/233/90.4 CMP 12/18/2024: Unremarkable TBI/AST/ALT/AP, 12/20/2024: 0.7/44/45/143 EEG, 12/19/2019 10/26/24 13:15: Normal EEG, 12/23/2024: Moderately abnormal EEG Bronchoscopy 01/12/25: There were copious blood tinged secretions in the airways bilaterally Chest x-ray 12/18/2024: Endotracheal tube 0.7 cm above the rogers. Nasogastric tube in the proximal stomach Chest x-ray, 12/27/2024: 1. Stable mild multifocal bilateral pulmonary airspace disease, most notably at the lung bases. 2. Lines and tubes unchanged Chest x-ray, 12/29/2024: 1. Stable cardiomegaly, bilateral pleural effusions and moderate diffuse increased prominence of the pulmonary vasculature. 2. Right basilar pulmonary airspace disease. 3. Interval retraction of endotracheal tube as above. Remaining lines and tubes unchanged CT head, 12/17/2024: No evidence of acute intracranial abnormality. If symptoms persist, consider MRI for further evaluation MR head, 12/21/2024: No evidence of acute infarction, intracranial hemorrhage, mass effect or hydrocephalus. No evidence of mesial temporal sclerosis. Pansinusitis. Prominent bilateral cervical lymph nodes. This can be further evaluated with ultrasound vital signs Vital Sign Date Time Temp Pulse Resp B/P (MAP) Pulse Ox O2 Delivery O2 Flow Rate FiO2 01/07/25 18:15 70 20 111/56 (74) 95 01/07/25 18:10 50 01/07/25 18:00 Mechanical Ventilator+ 01/07/25 18:00 98.7 98.7 Total Intake and Output 01/06/25 01/06/25 01/07/25 15:00 23:00 07:00 Intake Total 743.7 ml 1817.8 ml 1243.8 ml Output Total 2375 ml 1100 ml Balance 743.7 ml -557.2 ml 143.8 ml medications Current Medications Medications Dose Ordered Sig/Rick Route Start Time Stop Time Status Last Admin Dose Admin Lorazepam 1 mg Q5MINP PRN IV 12/18/24 11:00 12/23/24 08:43 1 MG Midazolam HCl 50 ml @ 1 mls/hr Q24H IV 12/18/24 21:15 01/07/25 15:24 8 MLS/HR Diagnostic Test (Pha) 1 strip Q6HR 12/19/24 12:00 01/07/25 17:44 1 STRIP Insulin Human Regular FOLLOW SLIDING SCALE Q6HR SC 12/19/24 12:00 Dextrose 50 ml UD IV 12/19/24 10:00 12/22/24 23:25 50 ML Albuterol 2.5 mg Q6HR NEB 12/19/24 18:00 01/07/25 18:20 2.5 MG Ipratropium [place] 0.5 mg Q6HR NEB 12/19/24 18:00 01/07/25 18:21 0.5 MG Pantoprazole Sodium 40 mg DAILY IV 12/21/24 10:00 01/07/25 09:44 40 MG Piperacillin Sod/ Tazobactam Sod 100 ml @ 25 mls/hr Q6HR IV 12/21/24 12:00 01/07/25 17:41 25 MLS/HR Polyethylene Glycol 17 gm DAILY PO 12/22/24 10:00 01/07/25 09:44 17 GM Docusate Sodium 100 mg BID GT 12/22/24 10:00 01/07/25 09:44 100 MG Thiamine HCl 100 mg DAILY IV 12/24/24 10:00 01/07/25 09:46 100 MG Folic Acid 1 mg/ Dextrose 50.2 ml @ 200.8 mls/ hr DAILY INJ 12/24/24 10:00 01/07/25 09:48 200.8 MLS/HR Sodium Chloride 10 ml QSHIFT@10,22 IV 12/24/24 22:00 01/07/25 10:12 10 ML Vancomycin HCl 0 ml @ 0 mls/hr UD IV 12/27/24 16:45 Enteral Nutritional Formula 1,000 ml 40ML/HR GT 12/27/24 16:45 01/06/25 20:27 1,000 ML Lactulose 15 ml DAILY PO 12/28/24 10:00 01/07/25 09:44 15 ML Furosemide 40 mg DAILY IV 12/30/24 10:00 01/07/25 09:46 40 MG Vancomycin HCl 200 ml @ 200 mls/hr Q6H IV 12/30/24 20:00 01/07/25 15:25 200 MLS/HR Acetaminophen 625 mg Q8HPRN PRN GT 12/31/24 16:00 01/05/25 00:32 625 MG Enoxaparin Sodium 40 mg Q12HP SC 01/05/25 22:00 01/07/25 09:45 40 MG Propofol 100 ml @ 4.11 mls/hr Q24H IV 01/05/25 15:45 01/07/25 17:41 41.1 MLS/HR Levetiracetam 100 ml @ 400 mls/hr BID IV 01/06/25 22:00 01/07/25 09:43 400 MLS/HR objective The patient is well-nourished and well-developed with no distress. The patient is intubated MENTAL STATUS: Subjective CRANIAL NERVES: Pupils are equal, round and nonreactive, small. There are corneal reflexes and doll's eyes phenomenon (see subjective). No signs of facial weakness. There are gagging or coughing reflexes SENSATION: Responses to pain stimuli. MOTOR: Normal tone in the upper and lower extremity. Normal muscle bulk. No fasciculations. No spontaneous movement in the arms and the legs REFLEXES: Deep tendon reflexes are symmetrical. No pathological reflexes. CEREBELLAR/COORDINATION: Deferred GAIT/STATION: deferred laboratory and microbiology Laboratory Tests 01/07/25 03:15 Test 01/07/25 03:15 Range/Units Serum Glucose 95 74-106 mg/dL Problem List Come Metabolic encephalopathy Hypoxic encephalopathy Toxic encephalopathy ? Status epileptics New onset seizure, status epileptics Likely secondary to substance abuse Rule out epileptic seizure or other acute symptomatic seizure The activity witnessed on 12/23/2024 was not typical to seizure, likely myoclonus Substance abuse ? Depression Respiratory failure/hypoxia Pneumonia Assessment/Plan Monitoring Supportive treatment Telemetry Follow-up lab ICU care Stabilize vitals/pressor drip Respiratory support/vent management Ativan for seizure breakthrough Cut down Keppra to 500 mg IV b.i.d. , he may not need preventive seizure treatment Need history from him directly Consider tele psych consultation Re: The previous substance abuse later Consider tracheostomy and feeding tube insertion More recommendation per clinical course This medical document was created using an electronic medical record system with [employer] dictation system. Although this document has been carefully reviewed, there may still be some phonetic and typographical errors. These areas are purely typographical due to imperfections of the software programs, and do not reflect any compromise in the patient's medical care. Prognosis poor, guarded Dietary Evaluation Review Comments: 1) Continue TPN to meet at least 75% estimated needs 2) TF Vital High Protein @ 60ml/hr(goal) with current rate of propofol. TF at goal volume together with propofol provides 2471 kcal (100% eenrgy needs) & 126 gm protein (100% protein needs) 3) Monitor TPN tolerance, lab values, I/O, wt trend Expected Outcomes/Goals: To meet >75% estimated needs Fu 2-3 days Plan discussed with: Other BONNY PEREZ MD Jan 07, 2025 18:41
[2025-01-08] VITALS (106 sets, daily range): BP systolic 65–157; BP diastolic 43–94; PULSE 64–112; RESP 19–30; TEMP 97.6–99; O2SAT 89–99
[2025-01-08 03:45] LABS: Hematocrit 33.2 % (41.0-53.0); Hemoglobin 11.5 g/dL (13.5-17.5); Mean Corpuscular Hemoglobin 30.5 pg (28.0-32.0); Mean Corpuscular Volume 87.8 fL (80.0-100.0); Nucleated Red Blood Cells % 0.1 %
[2025-01-08 04:06] LABS: Alanine Aminotransferase 60 U/L (7-40); Albumin 4.5 g/dL (3.2-4.8); Alkaline Phosphatase 131 U/L (46-116); Anion Gap 12 (5-15); BUN/Creatinine Ratio 23.9 (10.0-20.0); Bilirubin, Total 0.3 mg/dL (0.2-1.0); Blood Urea Nitrogen 11 mg/dL (9-23); Calcium 10.4 mg/dL (8.7-10.4); Carbon Dioxide 27 mmol/L (20-31); Chloride 101 mmol/L (98-107); Glucose 88 mg/dL (74-106); Potassium 3.8 mmol/L (3.5-5.1); Sodium 140 mmol/L (136-145); Total Protein 7.6 g/dL (5.7-8.2)
--- NOTE | 2025-01-08 05:50 | DVH ---
CHEST RADIOGRAPH Indication: pna Technique: Single frontal view of the chest was obtained COMPARISON: XY CHEST PORTABLE on DOS: 01/07/25, XY CHEST PORTABLE on DOS: 01/06/25, XY CHEST PORTABLE o n DOS: 01/05/25, XY CHEST PORTABLE on DOS: 01/04/25, XY CHEST PORTABLE on DOS: 01/03/25 FINDINGS: Lines and Tubes: Endotracheal tube and enteric catheter in satisfactory position Lungs: Congestion Pleura: No effusion. No pneumothorax. Cardiomediastinal contours: Cardiomegaly Bones: Unremarkable IMPRESSION: Lines and tubes in satisfactory position. No significant interval change.
[2025-01-08 06:56] LABS: Base Excess 1.8 mmol/L (-2.0-3.0)
[2025-01-08] MEDS: fentaNYL Drip 2500mCg/250mlNS 250 ML IV ONE (07:52)
[2025-01-08 14:47] LABS: Base Excess 4.2 mmol/L (-2.0-3.0)
[2025-01-08] MEDS ORDERED: VANCOMYCIN PER PHARMACY 0 MG IV SCH (15:15)
--- NOTE | 2025-01-08 16:08 | DVHPN2 ---
Reviewed: Care Plan, H&P Changes from previous H/P or p: No Changes General: Per HPI Eyes: No Pain, No Vision change, No Conjunctivae inflammation, No Eyelid inflammation, No Other, No Redness ENT: No Ear pain, No Ear discharge, No Nose pain, No Nose discharge, No Nose congestion, No Mouth pain, No Mouth swelling, No Throat pain, No Throat swelling, No Other Cardiovascular: No Chest Pain, No Palpitations, No Orthopnea, No Paroxysmal Noc. Dyspnea, No Edema, No Lt Headedness, No Other Respiratory: No Cough, No Dry, No Shortness of breath, No SOB with excertion, No Wheezing, No Hemoptysis, No Pleuritic Pain, No Sputum, No Other Gastrointestinal: No Nausea, No Vomiting, No Abdominal Pain, No Diarrhea, No Constipation, No Melena, No Hematochezia, No Other Genitourinary: No Dysuria, No Frequency, No Incontinence, No Hematuria, No Retention, No Other Musculoskeletal: No other, No neck pain, No shoulder pain, No arm pain, No back pain, No hand pain, No leg pain, No foot pain Skin: No Rash, No Lesions, No Jaundice, No Bruising, No Other Objective Vitals Vital Signs Date Time Temp Pulse Resp B/P (MAP) Pulse Ox O2 Delivery O2 Flow Rate FiO2 01/08/25 14:30 65 20 97/52 (67) 97 01/08/25 14:00 40 01/08/25 14:00 Mechanical Ventilator+ 01/08/25 12:00 98.4 98.4 Intake/Output Intake and Output 01/08/25 07:00 Intake Total 3842.1 ml Output Total 3830 ml Balance 12.1 ml Intake Oral 80 ml IV Total 2834.1 ml Tube Feeding 928 ml Output Urine Total 3825 ml Gastric Drainage Total 5 ml # Bowel Movements 2 Cardiovascular: Regular rate, Normal S1, Normal S2 Abdomen: Normal bowel sounds, Soft Extremities: No cyanosis Medications Current Medications Medications Dose Ordered Sig/Rick Route Start Time Stop Time Status Last Admin Dose Admin Lorazepam 1 mg Q5MINP PRN IV 12/18/24 11:00 12/23/24 08:43 1 MG Midazolam HCl 50 ml @ 1 mls/hr Q24H IV 12/18/24 21:15 01/08/25 15:41 8 MLS/HR Diagnostic Test (Pha) 1 strip Q6HR 12/19/24 12:00 01/08/25 11:25 1 STRIP Insulin Human Regular FOLLOW SLIDING SCALE Q6HR SC 12/19/24 12:00 Dextrose 50 ml UD IV 12/19/24 10:00 12/22/24 23:25 50 ML Albuterol 2.5 mg Q6HR NEB 12/19/24 18:00 01/08/25 11:32 2.5 MG Ipratropium [place] 0.5 mg Q6HR NEB 12/19/24 18:00 01/08/25 11:32 0.5 MG Pantoprazole Sodium 40 mg DAILY IV 12/21/24 10:00 01/08/25 09:45 40 MG Piperacillin Sod/ Tazobactam Sod 100 ml @ 25 mls/hr Q6HR IV 12/21/24 12:00 01/08/25 11:32 25 MLS/HR Polyethylene Glycol 17 gm DAILY PO 12/22/24 10:00 01/07/25 09:44 17 GM Docusate Sodium 100 mg BID GT 12/22/24 10:00 01/08/25 09:42 100 MG Thiamine HCl 100 mg DAILY IV 12/24/24 10:00 01/08/25 09:43 100 MG Folic Acid 1 mg/ Dextrose 50.2 ml @ 200.8 mls/ hr DAILY INJ 12/24/24 10:00 01/08/25 09:42 200.8 MLS/HR Sodium Chloride 10 ml QSHIFT@10,22 IV 12/24/24 22:00 01/08/25 09:45 10 ML Enteral Nutritional Formula 1,000 ml 40ML/HR GT 12/27/24 16:45 01/07/25 23:00 1,000 ML Lactulose 15 ml DAILY PO 12/28/24 10:00 01/07/25 09:44 15 ML Furosemide 40 mg DAILY IV 12/30/24 10:00 01/08/25 09:44 40 MG Vancomycin HCl 200 ml @ 200 mls/hr Q6H IV 12/30/24 20:00 01/08/25 13:11 200 MLS/HR Acetaminophen 625 mg Q8HPRN PRN GT 12/31/24 16:00 01/05/25 00:32 625 MG Enoxaparin Sodium 40 mg Q12HP SC 01/05/25 22:00 01/08/25 09:46 40 MG Propofol 100 ml @ 4.11 mls/hr Q24H IV 01/05/25 15:45 01/08/25 14:32 41.1 MLS/HR Levetiracetam 100 ml @ 400 mls/hr BID IV 01/06/25 22:00 01/08/25 09:43 400 MLS/HR Fentanyl Citrate 250 ml @ 2.5 mls/hr Q24H IV 01/07/25 19:00 01/08/25 15:43 22.5 MLS/HR Vancomycin HCl 0 ml @ 0 mls/hr UD IV 01/08/25 15:15 Laboratory Results Laboratory Tests 01/08/25 03:05 Chemistry Test 01/08/25 03:05 Albumin 4.5 g/dL (3.2-4.8) Calcium Level 10.4 mg/dL (8.7-10.4) Total Protein 7.6 g/dL (5.7-8.2) LFT Test 01/08/25 03:05 Alanine Aminotransferase (ALT) 60 U/L (7-40) H Alkaline Phosphatase 131 U/L (46-116) H Aspartate Amino Transferase (AST) 24 U/L (13-40) Total Bilirubin 0.3 mg/dL (0.2-1.0) Urinalysis Test 12/17/24 23:14 Urine Color Light-yellow (Yellow) Urine Clarity Clear (Clear) Urine pH 6.5 (5.0-9.0) Urine Specific [place] 1.024 (1.001-1.035) Urine Protein Negative (Negative) Urine Ketones Trace (Negative) Urine Blood Negative /uL (Negative) Urine Nitrite Negative (Negative) Urine Bilirubin Negative (Negative) Urine Urobilinogen Normal mg/dL (Negative) Urine Leukocyte Esterase Negative /uL (Negative) Urine RBC 1 /hpf (0 - 3) Urine Microscopic WBC < 1 /HPF (0-3) Urine Squamous Epithelial Cells Few /hpf (<5) Urine Bacteria None seen /hpf (None Seen) Urine Yeast (Budding) Occasional /hpf (None Urine Glucose Normal mg/dL (Normal) Blood Gas Results Test 01/08/25 06:49 01/08/25 14:39 Arterial Blood pH 7.400 (7.350-7.450) 7.444 (7.350-7.450) FiO2 % 40.0 40.0 Microbiology Microbiology Date/Time Source Procedure Growth Status 01/04/25 18:35 Blood Blood Culture - Preliminary NO GROWTH AFTER 72 HOURS OF INCUBATION. Resulted 01/04/25 18:15 Sputum Gram Stain - Final Complete 01/04/25 18:15 Respiratory Culture - Final Staphylococcus aureus Complete 01/04/25 17:00 Urine - [place] Urine Culture - Final Complete 12/25/24 15:20 Catheter Site Aerobic Culture - Final Staphylococcus epidermidis Complete Labs and/or images reviewed: Labs reviewed by me, Image(s) reviewed by me Assessment/Plan Assessment/Plan # acute likely toxic versus metabolic encephalopathy # new onset? Breakthrough grand mal seizures # medication nonadherence # possible alcohol withdrawal, unable to calculate CIWA # essential hypertension # sepsis secondary to aspiration pneumonia # Acute hypoxic respiratory failure secondary to intractable seizures # probable aspiration pneumonia, cultures growing MSSA # Ventilator # pulmonary edema # b/l pleural effusion # ?pulmonary embolism # transaminitis # Peptic ulcer prophylaxis # vitamin B12 deficiency # constipation, likely slow transit # hypernatremia, now improved # hypokalemia, now improved # aspiration pneumonia # sepsis due to above # right IJ catheter tip (placed on 12/18/2024, removed on 12/24/2024) culture growing staph epidermidis # microcytic anemia, mild # substance use disorder 12/31/24: SpO2 improving today, averaging at 97% on FiO2 100%. continues to have low grade fever. continue therapeutic lovenox. Increased PEEP from 10 to 12 01/01/2025: pt is somewhat stable on vent but with high parameters: PEEP of 12 and FiO2 of 60 no vasopressors will need CTA but unstable at the moment discussed with mother at bedside 01/08/2025 remains on vent. trach candidate discussed with RT and nursing at bedside Plan discussed with: Patient My Orders Orders - LUIS SIDDIQI DO Procedure Category Date Status Time Vancomycin Per PHA 01/08/25 In Process Pharmacy 15:15 Vancomycin Per JADIEL 01/11/25 In Process Pharmacy Protoc 14:00 Vancomycin,Trough LAB 01/11/25 Verified 13:00 Creatinine LAB 01/09/25 Verified 05:00 Date of Service: Jan 08, 2025 Billing Provider: LUIS SIDDIQI DO Common Visit Codes: [id number] CARE 30-74 MIN LUIS SIDDIQI DO Jan 08, 2025 16:08
--- NOTE | 2025-01-08 21:14 | DVHPN2 ---
Progress Note - Dictate Date Seen: Jan 08, 2025 Medical Necessity Reason Pt with a Central, PICC or Fol: Yes The following are medically ne: Reed Catheter Reason for reed catheter: Strict I&O Subjective Mr. Perry is a 24 years old right-handed gentleman with a history of hypertension, pain syndrome, substance abuse, he was admitted to the [facility] on 12/17/2024 for new onset seizure activity. I have seen and examined the patient, discussed with his nurses. His muscle in the room. At this time, he is nonresponsive to verbal stimuli, but open the eyes to touch, in the is a blinking and a little bit conjugated rolling eye movement Fentanyl 225 mcg/hour, Versed 8 mg/hour, propofol 50 mcg/minute, FiO2: 40% Blood culture, 12/25/2024: No growth Sputum culture, 12/25/2024: Staphylococcus aureus Urine culture, 01/04/2025: Urinalysis, 12/17/2024: Unremarkable Urine drug screening, 12/17/2024: Benzo Valproic acid, 12/17/2024: 22.1 Plasma alcohol, 12/17/2024: <3 ABG, 12/18/2024: Respiratory acidosis, 12/20/2024: Acidosis, 12/22/2024: Hypoxia, 12/24/2024: Hypoxia, carbon dioxide retention, 12/25/2024: Hypoxia, carbon dioxide retention, 12/29/2024: Hypoxia, carbon dioxide retention WBC/HB/PLT/MCV, 12/20/2024: 8/12.4/233/90.4 CMP 12/18/2024: Unremarkable TBI/AST/ALT/AP, 12/20/2024: 0.7/44/45/143 EEG, 12/19/2019 10/26/24 13:15: Normal EEG, 12/23/2024: Moderately abnormal EEG Bronchoscopy 01/12/25: There were copious blood tinged secretions in the airways bilaterally Chest x-ray 12/18/2024: Endotracheal tube 0.7 cm above the rogers. Nasogastric tube in the proximal stomach Chest x-ray, 12/27/2024: 1. Stable mild multifocal bilateral pulmonary airspace disease, most notably at the lung bases. 2. Lines and tubes unchanged Chest x-ray, 12/29/2024: 1. Stable cardiomegaly, bilateral pleural effusions and moderate diffuse increased prominence of the pulmonary vasculature. 2. Right basilar pulmonary airspace disease. 3. Interval retraction of endotracheal tube as above. Remaining lines and tubes unchanged CT head, 12/17/2024: No evidence of acute intracranial abnormality. If symptoms persist, consider MRI for further evaluation MR head, 12/21/2024: No evidence of acute infarction, intracranial hemorrhage, mass effect or hydrocephalus. No evidence of mesial temporal sclerosis. Pansinusitis. Prominent bilateral cervical lymph nodes. This can be further evaluated with ultrasound vital signs Vital Sign Date Time Temp Pulse Resp B/P (MAP) Pulse Ox O2 Delivery O2 Flow Rate FiO2 01/08/25 20:45 81 20 120/61 (80) 01/08/25 20:45 96 01/08/25 20:30 40.0 30 01/08/25 20:00 98.9 98.9 01/08/25 18:23 Mechanical Ventilator+ Total Intake and Output 01/07/25 01/07/25 01/08/25 15:00 23:00 07:00 Intake Total 857.5 ml 1549.4 ml 1435.2 ml Output Total 2625 ml 1205 ml Balance 857.5 ml -1075.6 ml 230.2 ml medications Current Medications Medications Dose Ordered Sig/Rick Route Start Time Stop Time Status Last Admin Dose Admin Lorazepam 1 mg Q5MINP PRN IV 12/18/24 11:00 12/23/24 08:43 1 MG Midazolam HCl 50 ml @ 1 mls/hr Q24H IV 12/18/24 21:15 01/08/25 15:41 8 MLS/HR Diagnostic Test (Pha) 1 strip Q6HR 12/19/24 12:00 01/08/25 17:17 1 STRIP Insulin Human Regular FOLLOW SLIDING SCALE Q6HR SC 12/19/24 12:00 Dextrose 50 ml UD IV 12/19/24 10:00 12/22/24 23:25 50 ML Albuterol 2.5 mg Q6HR NEB 12/19/24 18:00 01/08/25 18:22 2.5 MG Ipratropium [place] 0.5 mg Q6HR NEB 12/19/24 18:00 01/08/25 18:22 0.5 MG Pantoprazole Sodium 40 mg DAILY IV 12/21/24 10:00 01/08/25 09:45 40 MG Piperacillin Sod/ Tazobactam Sod 100 ml @ 25 mls/hr Q6HR IV 12/21/24 12:00 01/08/25 17:17 25 MLS/HR Polyethylene Glycol 17 gm DAILY PO 12/22/24 10:00 01/07/25 09:44 17 GM Docusate Sodium 100 mg BID GT 12/22/24 10:00 01/08/25 09:42 100 MG Thiamine HCl 100 mg DAILY IV 12/24/24 10:00 01/08/25 09:43 100 MG Folic Acid 1 mg/ Dextrose 50.2 ml @ 200.8 mls/ hr DAILY INJ 12/24/24 10:00 01/08/25 09:42 200.8 MLS/HR Sodium Chloride 10 ml QSHIFT@10,22 IV 12/24/24 22:00 01/08/25 09:45 10 ML Enteral Nutritional Formula 1,000 ml 40ML/HR GT 12/27/24 16:45 01/08/25 20:11 1,000 ML Lactulose 15 ml DAILY PO 12/28/24 10:00 01/07/25 09:44 15 ML Furosemide 40 mg DAILY IV 12/30/24 10:00 01/08/25 09:44 40 MG Vancomycin HCl 200 ml @ 200 mls/hr Q6H IV 12/30/24 20:00 01/08/25 19:49 200 MLS/HR Acetaminophen 625 mg Q8HPRN PRN GT 12/31/24 16:00 01/05/25 00:32 625 MG Enoxaparin Sodium 40 mg Q12HP SC 01/05/25 22:00 01/08/25 09:46 40 MG Propofol 100 ml @ 4.11 mls/hr Q24H IV 01/05/25 15:45 01/08/25 18:54 41.1 MLS/HR Levetiracetam 100 ml @ 400 mls/hr BID IV 01/06/25 22:00 01/08/25 09:43 400 MLS/HR Fentanyl Citrate 250 ml @ 2.5 mls/hr Q24H IV 01/07/25 19:00 01/08/25 15:43 22.5 MLS/HR Vancomycin HCl 0 ml @ 0 mls/hr UD IV 01/08/25 15:15 objective The patient is well-nourished and well-developed with no distress. The patient is intubated MENTAL STATUS: Subjective CRANIAL NERVES: Pupils are equal, round and nonreactive, small. There are corneal reflexes and doll's eyes phenomenon (see subjective). No signs of facial weakness. There are gagging or coughing reflexes SENSATION: Responses to pain stimuli. MOTOR: Normal tone in the upper and lower extremity. Normal muscle bulk. No fasciculations. No spontaneous movement in the arms and the legs REFLEXES: Deep tendon reflexes are symmetrical. No pathological reflexes. CEREBELLAR/COORDINATION: Deferred GAIT/STATION: deferred laboratory and microbiology Laboratory Tests 01/08/25 03:05 Test 01/08/25 03:05 Range/Units Serum Glucose 88 74-106 mg/dL Problem List Come Metabolic encephalopathy Hypoxic encephalopathy Toxic encephalopathy ? Status epileptics New onset seizure, status epileptics Likely secondary to substance abuse Rule out epileptic seizure or other acute symptomatic seizure The activity witnessed on 12/23/2024 was not typical to seizure, likely myoclonus Substance abuse ? Depression Respiratory failure/hypoxia Pneumonia Assessment/Plan Monitoring Supportive treatment Telemetry Follow-up lab ICU care Stabilize vitals/pressor drip Respiratory support/vent management Ativan for seizure breakthrough Cut down Keppra to 500 mg IV b.i.d. , he may not need preventive seizure treatment Need history from him directly Consider tele psych consultation Re: The previous substance abuse later Consider tracheostomy and feeding tube insertion More recommendation per clinical course This medical document was created using an electronic medical record system with [employer] dictation system. Although this document has been carefully reviewed, there may still be some phonetic and typographical errors. These areas are purely typographical due to imperfections of the software programs, and do not reflect any compromise in the patient's medical care. Prognosis guarded Dietary Evaluation Review Comments: 1) Continue TPN to meet at least 75% estimated needs 2) TF Vital High Protein @ 60ml/hr(goal) with current rate of propofol. TF at goal volume together with propofol provides 2471 kcal (100% eenrgy needs) & 126 gm protein (100% protein needs) 3) Monitor TPN tolerance, lab values, I/O, wt trend Expected Outcomes/Goals: To meet >75% estimated needs Fu 2-3 days Plan discussed with: Other BONNY PEREZ MD Jan 08, 2025 21:14
--- NOTE | 2025-01-08 22:59 | DVHPN2 ---
Progress Note - Dictate Date Seen: Jan 08, 2025 Medical Necessity Reason Pt with a Central, PICC or Fol: Yes The following are medically ne: Reed Catheter Reason for reed catheter: Strict I&O Subjective Patient seen and examined at bedside. Sedated, intubated on mechanical ventilator. Overnight events reviewed. vital signs Vital Sign Date Time Temp Pulse Resp B/P (MAP) Pulse Ox O2 Delivery O2 Flow Rate FiO2 01/08/25 22:30 83 20 115/57 (76) 94 01/08/25 22:00 40 01/08/25 22:00 Mechanical Ventilator+ 01/08/25 20:30 40.0 01/08/25 20:00 98.9 98.9 Total Intake and Output 01/07/25 01/07/25 01/08/25 15:00 23:00 07:00 Intake Total 857.5 ml 1549.4 ml 1435.2 ml Output Total 2625 ml 1205 ml Balance 857.5 ml -1075.6 ml 230.2 ml medications Current Medications Medications Dose Ordered Sig/Rick Route Start Time Stop Time Status Last Admin Dose Admin Lorazepam 1 mg Q5MINP PRN IV 12/18/24 11:00 12/23/24 08:43 1 MG Midazolam HCl 50 ml @ 1 mls/hr Q24H IV 12/18/24 21:15 01/08/25 15:41 8 MLS/HR Diagnostic Test (Pha) 1 strip Q6HR 12/19/24 12:00 01/08/25 17:17 1 STRIP Insulin Human Regular FOLLOW SLIDING SCALE Q6HR SC 12/19/24 12:00 Dextrose 50 ml UD IV 12/19/24 10:00 12/22/24 23:25 50 ML Albuterol 2.5 mg Q6HR NEB 12/19/24 18:00 01/08/25 18:22 2.5 MG Ipratropium [place] 0.5 mg Q6HR NEB 12/19/24 18:00 01/08/25 18:22 0.5 MG Pantoprazole Sodium 40 mg DAILY IV 12/21/24 10:00 01/08/25 09:45 40 MG Piperacillin Sod/ Tazobactam Sod 100 ml @ 25 mls/hr Q6HR IV 12/21/24 12:00 01/08/25 17:17 25 MLS/HR Polyethylene Glycol 17 gm DAILY PO 12/22/24 10:00 01/07/25 09:44 17 GM Docusate Sodium 100 mg BID GT 12/22/24 10:00 01/08/25 09:42 100 MG Thiamine HCl 100 mg DAILY IV 12/24/24 10:00 01/08/25 09:43 100 MG Folic Acid 1 mg/ Dextrose 50.2 ml @ 200.8 mls/ hr DAILY INJ 12/24/24 10:00 01/08/25 09:42 200.8 MLS/HR Sodium Chloride 10 ml QSHIFT@10,22 IV 12/24/24 22:00 01/08/25 22:26 10 ML Enteral Nutritional Formula 1,000 ml 40ML/HR GT 12/27/24 16:45 01/08/25 20:11 1,000 ML Lactulose 15 ml DAILY PO 12/28/24 10:00 01/07/25 09:44 15 ML Furosemide 40 mg DAILY IV 12/30/24 10:00 01/08/25 09:44 40 MG Vancomycin HCl 200 ml @ 200 mls/hr Q6H IV 12/30/24 20:00 01/08/25 19:49 200 MLS/HR Acetaminophen 625 mg Q8HPRN PRN GT 12/31/24 16:00 01/05/25 00:32 625 MG Enoxaparin Sodium 40 mg Q12HP SC 01/05/25 22:00 01/08/25 22:27 40 MG Propofol 100 ml @ 4.11 mls/hr Q24H IV 01/05/25 15:45 01/08/25 21:40 41.1 MLS/HR Levetiracetam 100 ml @ 400 mls/hr BID IV 01/06/25 22:00 01/08/25 22:27 400 MLS/HR Fentanyl Citrate 250 ml @ 2.5 mls/hr Q24H IV 01/07/25 19:00 01/08/25 15:43 22.5 MLS/HR Vancomycin HCl 0 ml @ 0 mls/hr UD IV 01/08/25 15:15 objective Gen.: Patient lying in bed in medical ICU. Sedated, intubated on mechanical ventilator. Head: Normocephalic, atraumatic. Eyes: PERRLA. Ears: Normal external anatomy. Throat: Endotracheal tube and orogastric tube in place. Neck: Supple, trachea midline. Chest: Transmitted breath sounds bilaterally. Decreased air entry bilaterally. No wheezing. Bibasilar crackles. Cardiovascular: Positive S1, positive S2. Regular rate and rhythm. Abdomen: Positive bowel sounds in all 4 quadrants. Soft, nontender, nondistended. : Reed in place. Normal external genitalia. Rectal: Deferred. Skin: Warm, dry. Intact. Extremities: 2+ radial pulses bilaterally. No lower extremity edema. Neuro: Sedated. laboratory and microbiology Laboratory Tests 01/08/25 03:05 Test 01/08/25 03:05 Range/Units Serum Glucose 88 74-106 mg/dL Assessment/Plan Impression: Acute hypoxic respiratory failure On mechanical ventilator Seizures Substance abuse (cocaine, Ecstasy) ? Aspiration pneumonia Morbid obesity, BMI 49.2 Plan: s/p intubation on mechanical ventilator. On AC mode; RR 20, VT 550, PEEP 8 -->5, FiO2 40% Titrate FIO2 to keep O2 saturation above 90%. VAP bundle. Daily ABG and CXR while intubated Sedate for ventilator synchrony - on Fentanyl, Versed, Propofol. Tube feeds for nutritional support Plan for trach placement. Continue bronchodilators q.6 hours. Continue antibiotics Antiepileptic - Keppra Diurese with Lasix Monitor renal function Monitor electrolytes. Supplement as necessary. Monitor ins and outs. Maintain euvolemia. Diet and lifestyle modifications for weight reduction Morbid obesity - complicates all care GI prophylaxis. DVT prophylaxis. Prognosis: Poor given patient's multiple co-morbidities. Condition: Critical Rest of plan per hospitalist and other consultants. A total of 35 minutes of critical care time was spent reviewing the patient record, examining the patient, making a diagnostic and therapeutic plan, discussing this plan with the medical personnel, following up on diagnostic studies and following the patient for clinical stability excluding any and all procedures. At least 50% of this time was spent in direct, [id number] contact. Thank you, ANNALISE Wall, for allowing me to participate in this patient's care. Further recommendations will depend on the patient's clinical course. Please do not hesitate to contact me if you have any questions or concerns. This medical document was created using an electronic medical record system with [employer] dictation system. Although these documentations are being carefully reviewed, there may still be some phonetic and typographical changes. The errors are purely typographical, due to imperfection on the software program, and do not reflect any compromise in the patient's medical care. Dietary Evaluation Review Comments: 1) Continue TPN to meet at least 75% estimated needs 2) TF Vital High Protein @ 60ml/hr(goal) with current rate of propofol. TF at goal volume together with propofol provides 2471 kcal (100% eenrgy needs) & 126 gm protein (100% protein needs) 3) Monitor TPN tolerance, lab values, I/O, wt trend Expected Outcomes/Goals: To meet >75% estimated needs Fu 2-3 days Plan discussed with: Other (DANNY Calle) Critical Care Time(min): 35 BRONSON SY MD Jan 08, 2025 22:59
[2025-01-09] VITALS (106 sets, daily range): BP systolic 95–179; BP diastolic 42–111; PULSE 61–116; RESP 14–30; TEMP 98–99; O2SAT 91–100
[2025-01-09 03:52] LABS: Chloride 102 mmol/L (98-107); Sodium 140 mmol/L (136-145)
[2025-01-09 03:53] LABS: Anion Gap 10 (5-15); Calcium 10.2 mg/dL (8.7-10.4); Carbon Dioxide 28 mmol/L (20-31); Potassium 3.2 mmol/L (3.5-5.1)
[2025-01-09 03:58] LABS: BUN/Creatinine Ratio 26.8 (10.0-20.0); Blood Urea Nitrogen 11 mg/dL (9-23); Glucose 94 mg/dL (74-106)
[2025-01-09] MEDS: POTASSIUM CHL 20MEQ/100ML 100 ML IV ONE ×2 (04:45→07:21)
[2025-01-09 07:02] LABS: Base Excess 1.8 mmol/L (-2.0-3.0)
--- NOTE | 2025-01-09 08:53 | DVHPN2 ---
Reviewed: Care Plan, H&P Changes from previous H/P or p: No Changes General: Per HPI Eyes: No Pain, No Vision change, No Conjunctivae inflammation, No Eyelid inflammation, No Other, No Redness ENT: No Ear pain, No Ear discharge, No Nose pain, No Nose discharge, No Nose congestion, No Mouth pain, No Mouth swelling, No Throat pain, No Throat swelling, No Other Cardiovascular: No Chest Pain, No Palpitations, No Orthopnea, No Paroxysmal Noc. Dyspnea, No Edema, No Lt Headedness, No Other Respiratory: No Cough, No Dry, No Shortness of breath, No SOB with excertion, No Wheezing, No Hemoptysis, No Pleuritic Pain, No Sputum, No Other Gastrointestinal: No Nausea, No Vomiting, No Abdominal Pain, No Diarrhea, No Constipation, No Melena, No Hematochezia, No Other Genitourinary: No Dysuria, No Frequency, No Incontinence, No Hematuria, No Retention, No Other Musculoskeletal: No other, No neck pain, No shoulder pain, No arm pain, No back pain, No hand pain, No leg pain, No foot pain Skin: No Rash, No Lesions, No Jaundice, No Bruising, No Other Objective Vitals Vital Signs Date Time Temp Pulse Resp B/P (MAP) Pulse Ox O2 Delivery O2 Flow Rate FiO2 01/09/25 08:00 40 01/09/25 08:00 107 24 96 Mechanical Ventilator+ 01/09/25 08:00 98.9 176/98 (124) 98.9 01/08/25 20:30 40.0 Intake/Output Intake and Output 01/09/25 06:59 Intake Total 4165.7 ml Output Total 4865 ml Balance -699.3 ml Intake Oral 30 ml IV Total 3297.7 ml Tube Feeding 838 ml Output Urine Total 4725 ml Gastric Drainage Total 140 ml Cardiovascular: Regular rate, Normal S1, Normal S2 Abdomen: Normal bowel sounds, Soft Extremities: No cyanosis Medications Current Medications Medications Dose Ordered Sig/Rick Route Start Time Stop Time Status Last Admin Dose Admin Lorazepam 1 mg Q5MINP PRN IV 12/18/24 11:00 12/23/24 08:43 1 MG Midazolam HCl 50 ml @ 1 mls/hr Q24H IV 12/18/24 21:15 01/09/25 06:32 8 MLS/HR Diagnostic Test (Pha) 1 strip Q6HR 12/19/24 12:00 01/09/25 05:28 1 STRIP Insulin Human Regular FOLLOW SLIDING SCALE Q6HR SC 12/19/24 12:00 Dextrose 50 ml UD IV 12/19/24 10:00 12/22/24 23:25 50 ML Albuterol 2.5 mg Q6HR NEB 12/19/24 18:00 01/09/25 06:04 2.5 MG Ipratropium [place] 0.5 mg Q6HR NEB 12/19/24 18:00 01/09/25 06:04 0.5 MG Pantoprazole Sodium 40 mg DAILY IV 12/21/24 10:00 01/08/25 09:45 40 MG Piperacillin Sod/ Tazobactam Sod 100 ml @ 25 mls/hr Q6HR IV 12/21/24 12:00 01/09/25 05:28 25 MLS/HR Polyethylene Glycol 17 gm DAILY PO 12/22/24 10:00 01/07/25 09:44 17 GM Docusate Sodium 100 mg BID GT 12/22/24 10:00 01/08/25 09:42 100 MG Thiamine HCl 100 mg DAILY IV 12/24/24 10:00 01/08/25 09:43 100 MG Folic Acid 1 mg/ Dextrose 50.2 ml @ 200.8 mls/ hr DAILY INJ 12/24/24 10:00 01/08/25 09:42 200.8 MLS/HR Sodium Chloride 10 ml QSHIFT@10,22 IV 12/24/24 22:00 01/08/25 22:26 10 ML Enteral Nutritional Formula 1,000 ml 40ML/HR GT 12/27/24 16:45 01/08/25 20:11 1,000 ML Lactulose 15 ml DAILY PO 12/28/24 10:00 01/07/25 09:44 15 ML Furosemide 40 mg DAILY IV 12/30/24 10:00 01/08/25 09:44 40 MG Vancomycin HCl 200 ml @ 200 mls/hr Q6H IV 12/30/24 20:00 01/09/25 07:37 200 MLS/HR Acetaminophen 625 mg Q8HPRN PRN GT 12/31/24 16:00 01/05/25 00:32 625 MG Enoxaparin Sodium 40 mg Q12HP SC 01/05/25 22:00 01/08/25 22:27 40 MG Propofol 100 ml @ 4.11 mls/hr Q24H IV 01/05/25 15:45 01/09/25 08:40 41.1 MLS/HR Levetiracetam 100 ml @ 400 mls/hr BID IV 01/06/25 22:00 01/08/25 22:27 400 MLS/HR Fentanyl Citrate 250 ml @ 2.5 mls/hr Q24H IV 01/07/25 19:00 01/09/25 02:00 22.5 MLS/HR Vancomycin HCl 0 ml @ 0 mls/hr UD IV 01/08/25 15:15 Laboratory Results Laboratory Tests 01/08/25 03:05 01/09/25 02:50 Chemistry Test 01/09/25 02:50 Calcium Level 10.2 mg/dL (8.7-10.4) Urinalysis Test 12/17/24 23:14 Urine Color Light-yellow (Yellow) Urine Clarity Clear (Clear) Urine pH 6.5 (5.0-9.0) Urine Specific [place] 1.024 (1.001-1.035) Urine Protein Negative (Negative) Urine Ketones Trace (Negative) Urine Blood Negative /uL (Negative) Urine Nitrite Negative (Negative) Urine Bilirubin Negative (Negative) Urine Urobilinogen Normal mg/dL (Negative) Urine Leukocyte Esterase Negative /uL (Negative) Urine RBC 1 /hpf (0 - 3) Urine Microscopic WBC < 1 /HPF (0-3) Urine Squamous Epithelial Cells Few /hpf (<5) Urine Bacteria None seen /hpf (None Seen) Urine Yeast (Budding) Occasional /hpf (None Urine Glucose Normal mg/dL (Normal) Blood Gas Results Test 01/08/25 14:39 01/09/25 06:50 Arterial Blood pH 7.444 (7.350-7.450) 7.384 (7.350-7.450) FiO2 % 40.0 40.0 Microbiology Microbiology Date/Time Source Procedure Growth Status 01/04/25 18:35 Blood Blood Culture - Preliminary NO GROWTH AFTER 72 HOURS OF INCUBATION. Resulted 01/04/25 18:15 Sputum Gram Stain - Final Complete 01/04/25 18:15 Respiratory Culture - Final Staphylococcus aureus Complete 01/04/25 17:00 Urine - [place] Urine Culture - Final Complete 12/25/24 15:20 Catheter Site Aerobic Culture - Final Staphylococcus epidermidis Complete Labs and/or images reviewed: Labs reviewed by me, Image(s) reviewed by me Assessment/Plan Assessment/Plan # acute likely toxic versus metabolic encephalopathy # new onset? Breakthrough grand mal seizures # medication nonadherence # possible alcohol withdrawal, unable to calculate CIWA # essential hypertension # sepsis secondary to aspiration pneumonia # Acute hypoxic respiratory failure secondary to intractable seizures # probable aspiration pneumonia, cultures growing MSSA # Ventilator # pulmonary edema # b/l pleural effusion # ?pulmonary embolism # transaminitis # Peptic ulcer prophylaxis # vitamin B12 deficiency # constipation, likely slow transit # hypernatremia, now improved # hypokalemia, now improved # aspiration pneumonia # sepsis due to above # right IJ catheter tip (placed on 12/18/2024, removed on 12/24/2024) culture growing staph epidermidis # microcytic anemia, mild # substance use disorder 12/31/24: SpO2 improving today, averaging at 97% on FiO2 100%. continues to have low grade fever. continue therapeutic lovenox. Increased PEEP from 10 to 12 01/01/2025: pt is somewhat stable on vent but with high parameters: PEEP of 12 and FiO2 of 60 no vasopressors will need CTA but unstable at the moment discussed with mother at bedside 01/08/2025 remains on vent. trach candidate discussed with RT and nursing at bedside 01/09/2025 remains on vent. PEEP of 5, FiO2 30 trach plan for this week discussed with nursing at bedside Plan discussed with: Patient My Orders Orders - LUIS SIDDIQI DO Procedure Category Date Status Time Vancomycin Per PHA 01/08/25 In Process Pharmacy 15:15 Vancomycin Per JADIEL 01/11/25 In Process Pharmacy [facility] 14:00 Vancomycin,[facility] 01/11/25 Verified 13:00 Date of Service: Jan 09, 2025 Billing Provider: LUIS SIDDIQI DO Common Visit Codes: [id number] CARE 30-74 MIN LUIS SIDDIQI DO Jan 09, 2025 08:53
--- NOTE | 2025-01-09 09:02 | DVH ---
CHEST RADIOGRAPH Indication: ETT pulled back. Technique: Single frontal view of the chest was obtained COMPARISON: XY CHEST PORTABLE on DOS: 01/08/25, XY CHEST PORTABLE on DOS: 01/07/25, XY CHEST PORTABLE o n DOS: 01/06/25, XY CHEST PORTABLE on DOS: 01/05/25, XY CHEST PORTABLE on DOS: 01/04/25 FINDINGS: Lines and Tubes: Right PICC, endotracheal tube and enteric catheter in satisfactory position. Lungs: Low lung volumes. Congestion. Pleura: No effusion. No pneumothorax. Cardiomediastinal contours: Unremarkable Bones: Unremarkable IMPRESSION: Lines and tubes in satisfactory position. No significant interval change.
--- NOTE | 2025-01-09 13:58 | MEDREC ---
[facility] ASP Intervention Section I [facility] ASP Intervention: Deescalate AB based on CS (PLEASE CONSIDER DE-ESCALATION BASED ON CULTURE RESULTS) VINCENZO CALDERA PHARMACIST Jan 09, 2025 13:58
--- NOTE | 2025-01-09 23:16 | DVHPN2 ---
Progress Note - Dictate Date Seen: Jan 09, 2025 Medical Necessity Reason Pt with a Central, PICC or Fol: Yes The following are medically ne: Reed Catheter Reason for reed catheter: Strict I&O Subjective Patient seen and examined at bedside. Sedated, intubated on mechanical ventilator. Overnight events reviewed. vital signs Vital Sign Date Time Temp Pulse Resp B/P (MAP) Pulse Ox O2 Delivery O2 Flow Rate FiO2 01/09/25 23:06 108/53 01/09/25 22:01 67 20 97 40 01/09/25 20:00 Mechanical Ventilator+ 01/09/25 20:00 99.0 99.0 01/08/25 20:30 40.0 Total Intake and Output 01/08/25 01/08/25 01/09/25 15:00 23:00 07:00 Intake Total 1226.2 ml 1473.5 ml 1441.0 ml Output Total 3500 ml 1365 ml Balance 1226.2 ml -2026.5 ml 76.0 ml medications Current Medications Medications Dose Ordered Sig/Rick Route Start Time Stop Time Status Last Admin Dose Admin Lorazepam 1 mg Q5MINP PRN IV 12/18/24 11:00 12/23/24 08:43 1 MG Midazolam HCl 50 ml @ 1 mls/hr Q24H IV 12/18/24 21:15 01/09/25 23:06 8 MLS/HR Diagnostic Test (Pha) 1 strip Q6HR 12/19/24 12:00 01/09/25 17:12 1 STRIP Insulin Human Regular FOLLOW SLIDING SCALE Q6HR SC 12/19/24 12:00 Dextrose 50 ml UD IV 12/19/24 10:00 12/22/24 23:25 50 ML Albuterol 2.5 mg Q6HR NEB 12/19/24 18:00 01/09/25 18:12 2.5 MG Ipratropium [place] 0.5 mg Q6HR NEB 12/19/24 18:00 01/09/25 18:12 0.5 MG Pantoprazole Sodium 40 mg DAILY IV 12/21/24 10:00 01/09/25 09:16 40 MG Polyethylene Glycol 17 gm DAILY PO 12/22/24 10:00 01/07/25 09:44 17 GM Docusate Sodium 100 mg BID GT 12/22/24 10:00 01/09/25 09:15 100 MG Thiamine HCl 100 mg DAILY IV 12/24/24 10:00 01/09/25 09:17 100 MG Folic Acid 1 mg/ Dextrose 50.2 ml @ 200.8 mls/ hr DAILY INJ 12/24/24 10:00 01/09/25 09:15 200.8 MLS/HR Sodium Chloride 10 ml QSHIFT@10,22 IV 12/24/24 22:00 01/09/25 22:21 10 ML Enteral Nutritional Formula 1,000 ml 40ML/HR GT 12/27/24 16:45 01/09/25 21:00 1,000 ML Lactulose 15 ml DAILY PO 12/28/24 10:00 01/09/25 09:17 15 ML Furosemide 40 mg DAILY IV 12/30/24 10:00 01/09/25 09:16 40 MG Vancomycin HCl 200 ml @ 200 mls/hr Q6H IV 12/30/24 20:00 01/09/25 20:02 200 MLS/HR Acetaminophen 625 mg Q8HPRN PRN GT 12/31/24 16:00 01/05/25 00:32 625 MG Enoxaparin Sodium 40 mg Q12HP SC 01/05/25 22:00 01/09/25 22:21 40 MG Propofol 100 ml @ 4.11 mls/hr Q24H IV 01/05/25 15:45 01/09/25 22:25 41.1 MLS/HR Levetiracetam 100 ml @ 400 mls/hr BID IV 01/06/25 22:00 01/09/25 22:21 400 MLS/HR Fentanyl Citrate 250 ml @ 2.5 mls/hr Q24H IV 01/07/25 19:00 01/09/25 23:06 22.5 MLS/HR Vancomycin HCl 0 ml @ 0 mls/hr UD IV 01/08/25 15:15 objective Gen.: Patient lying in bed in medical ICU. Sedated, intubated on mechanical ventilator. Head: Normocephalic, atraumatic. Eyes: PERRLA. Ears: Normal external anatomy. Throat: Endotracheal tube and orogastric tube in place. Neck: Supple, trachea midline. Chest: Transmitted breath sounds bilaterally. Decreased air entry bilaterally. No wheezing. Bibasilar crackles. Cardiovascular: Positive S1, positive S2. Regular rate and rhythm. Abdomen: Positive bowel sounds in all 4 quadrants. Soft, nontender, nondistended. : Reed in place. Normal external genitalia. Rectal: Deferred. Skin: Warm, dry. Intact. Extremities: 2+ radial pulses bilaterally. No lower extremity edema. Neuro: Sedated. laboratory and microbiology Laboratory Tests 01/09/25 02:50 01/08/25 03:05 Test 01/09/25 02:50 Range/Units Serum Glucose 94 74-106 mg/dL Assessment/Plan Impression: Acute hypoxic respiratory failure On mechanical ventilator Seizures Substance abuse (cocaine, Ecstasy) ? Aspiration pneumonia Morbid obesity, BMI 49.2 Plan: s/p intubation on mechanical ventilator. On AC mode; RR 20, VT 550, PEEP 5, FiO2 40% (Tolerated decrease in PEEP to 5 cmH2O) Titrate FIO2 to keep O2 saturation above 90%. VAP bundle. Daily ABG and CXR while intubated Sedate for ventilator synchrony - on Fentanyl, Versed, Propofol. Tube feeds for nutritional support Plan for trach placement. Follow up with Surgery for trach placement in AM. Continue bronchodilators q.6 hours. Continue antibiotics Antiepileptic - Keppra Diurese with Lasix Monitor renal function Monitor electrolytes. Supplement as necessary. Monitor ins and outs. Maintain euvolemia. Diet and lifestyle modifications for weight reduction Morbid obesity - complicates all care GI prophylaxis. DVT prophylaxis. Prognosis: Poor given patient's multiple co-morbidities. Condition: Critical Rest of plan per hospitalist and other consultants. A total of 35 minutes of critical care time was spent reviewing the patient record, examining the patient, making a diagnostic and therapeutic plan, discussing this plan with the medical personnel, following up on diagnostic studies and following the patient for clinical stability excluding any and all procedures. At least 50% of this time was spent in direct, [id number] contact. Thank you, ANNALISE Wall, for allowing me to participate in this patient's care. Further recommendations will depend on the patient's clinical course. Please do not hesitate to contact me if you have any questions or concerns. This medical document was created using an electronic medical record system with [employer] system. Although these documentations are being carefully reviewed, there may still be some phonetic and typographical changes. The errors are purely typographical, due to imperfection on the software program, and do not reflect any compromise in the patient's medical care. Dietary Evaluation Review Comments: 1) Continue TPN to meet at least 75% estimated needs 2) TF Vital High Protein @ 60ml/hr(goal) with current rate of propofol. TF at goal volume together with propofol provides 2471 kcal (100% eenrgy needs) & 126 gm protein (100% protein needs) 3) Monitor TPN tolerance, lab values, I/O, wt trend Expected Outcomes/Goals: To meet >75% estimated needs Fu 2-3 days Plan discussed with: Other (DANNY Calle) Critical Care Time(min): 35 BRONSON SY MD Jan 09, 2025 23:16
[2025-01-10] VITALS (104 sets, daily range): BP systolic 99–153; BP diastolic 47–87; PULSE 59–97; RESP 14–29; TEMP 97.8–98.8; O2SAT 82–99
[2025-01-10 04:14] LABS: Alanine Aminotransferase 40 U/L (7-40); Alkaline Phosphatase 114 U/L (46-116); Anion Gap 10 (5-15); BUN/Creatinine Ratio 28.1 (10.0-20.0); Calcium 9.6 mg/dL (8.7-10.4); Carbon Dioxide 28 mmol/L (20-31); Chloride 103 mmol/L (98-107); Glucose 95 mg/dL (74-106); Sodium 141 mmol/L (136-145); Total Protein 7.0 g/dL (5.7-8.2)
[2025-01-10 04:15] LABS: Albumin 4.1 g/dL (3.2-4.8); Bilirubin, Total 0.3 mg/dL (0.2-1.0)
[2025-01-10 04:20] LABS: Hematocrit 31.2 % (41.0-53.0); Hemoglobin 10.8 g/dL (13.5-17.5); Mean Corpuscular Hemoglobin 30.3 pg (28.0-32.0); Mean Corpuscular Volume 88.0 fL (80.0-100.0); Nucleated Red Blood Cells % 0.0 %
[2025-01-10 04:36] LABS: Blood Urea Nitrogen 9 mg/dL (9-23); Potassium 3.2 mmol/L (3.5-5.1)
[2025-01-10 04:55] LABS: INR 1.07 (0.9-1.15); Prothrombin Time 11.3 sec (9.3-11.8)
[2025-01-10 07:26] LABS: Base Excess 0.8 mmol/L (-2.0-3.0)
[2025-01-10] MEDS: POTASSIUM CHL 20MEQ/100ML 100 ML IV SCH (08:49)
--- NOTE | 2025-01-10 09:30 | DVHPN2 ---
Progress Note - Dictate Date Seen: Jan 10, 2025 Medical Necessity Reason Pt with a Central, PICC or Fol: Yes The following are medically ne: Reed Catheter Reason for reed catheter: Strict I&O Subjective Mr. Perry is a 24 years old right-handed gentleman with a history of hypertension, pain syndrome, substance abuse, he was admitted to the [facility] on 12/17/2024 for new onset seizure activity. I have seen and examined the patient, discussed with his nurses. His mother is in the room. At this time, he is responsive to strong painful stimuli. No spontaneous extremity movement Fentanyl 225 mcg/hour, propofol 50 mcg/minute, FiO2: 40% Blood culture, 12/25/2024: No growth Sputum culture, 12/25/2024: Staphylococcus aureus Urine culture, 01/04/2025: Urinalysis, 12/17/2024: Unremarkable Urine drug screening, 12/17/2024: Benzo Valproic acid, 12/17/2024: 22.1 Plasma alcohol, 12/17/2024: <3 ABG, 12/18/2024: Respiratory acidosis, 12/20/2024: Acidosis, 12/22/2024: Hypoxia, 12/24/2024: Hypoxia, carbon dioxide retention, 12/25/2024: Hypoxia, carbon dioxide retention, 12/29/2024: Hypoxia, carbon dioxide retention WBC/HB/PLT/MCV, 12/20/2024: 8/12.4/233/90.4 CMP 12/18/2024: Unremarkable TBI/AST/ALT/AP, 12/20/2024: 0.7/44/45/143 EEG, 12/19/2019 10/26/24 13:15: Normal EEG, 12/23/2024: Moderately abnormal EEG Bronchoscopy 01/12/25: There were copious blood tinged secretions in the airways bilaterally Chest x-ray 12/18/2024: Endotracheal tube 0.7 cm above the rogers. Nasogastric tube in the proximal stomach Chest x-ray, 12/27/2024: 1. Stable mild multifocal bilateral pulmonary airspace disease, most notably at the lung bases. 2. Lines and tubes unchanged Chest x-ray, 12/29/2024: 1. Stable cardiomegaly, bilateral pleural effusions and moderate diffuse increased prominence of the pulmonary vasculature. 2. Right basilar pulmonary airspace disease. 3. Interval retraction of endotracheal tube as above. Remaining lines and tubes unchanged Chest x-ray, : Lines and tubes in satisfactory position. No significant interval change. CT head, 12/17/2024: No evidence of acute intracranial abnormality. If symptoms persist, consider MRI for further evaluation MR head, 12/21/2024: No evidence of acute infarction, intracranial hemorrhage, mass effect or hydrocephalus. No evidence of mesial temporal sclerosis. Pansinusitis. Prominent bilateral cervical lymph nodes. This can be further evaluated with ultrasound vital signs Vital Sign Date Time Temp Pulse Resp B/P (MAP) Pulse Ox O2 Delivery O2 Flow Rate FiO2 01/10/25 09:16 118/61 01/10/25 08:15 72 20 97 01/10/25 08:00 Mechanical Ventilator+ 40 40 01/10/25 08:00 98.7 98.7 01/08/25 20:30 40.0 Total Intake and Output 01/09/25 01/09/25 01/10/25 15:00 23:00 07:00 Intake Total 1226.2 ml 1393.5 ml 1714.5 ml Output Total 2725 ml 2350 ml Balance 1226.2 ml -1331.5 ml -635.5 ml medications Current Medications Medications Dose Ordered Sig/Rick Route Start Time Stop Time Status Last Admin Dose Admin Lorazepam 1 mg Q5MINP PRN IV 12/18/24 11:00 12/23/24 08:43 1 MG Midazolam HCl 50 ml @ 1 mls/hr Q24H IV 12/18/24 21:15 01/09/25 23:06 8 MLS/HR Diagnostic Test (Pha) 1 strip Q6HR 12/19/24 12:00 01/10/25 05:38 1 STRIP Insulin Human Regular FOLLOW SLIDING SCALE Q6HR SC 12/19/24 12:00 Dextrose 50 ml UD IV 12/19/24 10:00 12/22/24 23:25 50 ML Albuterol 2.5 mg Q6HR NEB 12/19/24 18:00 01/10/25 06:29 2.5 MG Ipratropium [place] 0.5 mg Q6HR NEB 12/19/24 18:00 01/10/25 06:29 0.5 MG Pantoprazole Sodium 40 mg DAILY IV 12/21/24 10:00 01/10/25 09:17 40 MG Polyethylene Glycol 17 gm DAILY PO 12/22/24 10:00 01/07/25 09:44 17 GM Docusate Sodium 100 mg BID GT 12/22/24 10:00 01/09/25 09:15 100 MG Thiamine HCl 100 mg DAILY IV 12/24/24 10:00 01/10/25 09:16 100 MG Folic Acid 1 mg/ Dextrose 50.2 ml @ 200.8 mls/ hr DAILY INJ 12/24/24 10:00 01/10/25 09:16 200.8 MLS/HR Sodium Chloride 10 ml QSHIFT@10,22 IV 12/24/24 22:00 01/10/25 09:17 10 ML Enteral Nutritional Formula 1,000 ml 40ML/HR GT 12/27/24 16:45 01/09/25 21:00 1,000 ML Lactulose 15 ml DAILY PO 12/28/24 10:00 01/09/25 09:17 15 ML Furosemide 40 mg DAILY IV 12/30/24 10:00 01/10/25 09:16 40 MG Vancomycin HCl 200 ml @ 200 mls/hr Q6H IV 12/30/24 20:00 01/10/25 08:00 200 MLS/HR Acetaminophen 625 mg Q8HPRN PRN GT 12/31/24 16:00 01/05/25 00:32 625 MG Enoxaparin Sodium 40 mg Q12HP SC 01/05/25 22:00 01/10/25 09:17 40 MG Propofol 100 ml @ 4.11 mls/hr Q24H IV 01/05/25 15:45 01/10/25 07:20 41.1 MLS/HR Levetiracetam 100 ml @ 400 mls/hr BID IV 01/06/25 22:00 01/10/25 09:15 400 MLS/HR Fentanyl Citrate 250 ml @ 2.5 mls/hr Q24H IV 01/07/25 19:00 01/09/25 23:06 22.5 MLS/HR Vancomycin HCl 0 ml @ 0 mls/hr UD IV 01/08/25 15:15 Potassium Chloride 100 ml @ 50 mls/hr Q2H IV 01/10/25 07:30 01/10/25 11:29 01/10/25 09:16 50 MLS/HR objective The patient is well-nourished and well-developed with no distress. The patient is intubated MENTAL STATUS: Subjective CRANIAL NERVES: Pupils are equal, round and nonreactive, small. There are corneal reflexes and doll's eyes phenomenon (see subjective). No signs of facial weakness. There are gagging or coughing reflexes SENSATION: Responses to pain stimuli. MOTOR: Normal tone in the upper and lower extremity. Normal muscle bulk. No fasciculations. No spontaneous movement in the arms and the legs REFLEXES: Deep tendon reflexes are symmetrical. No pathological reflexes. CEREBELLAR/COORDINATION: Deferred GAIT/STATION: deferred laboratory and microbiology Laboratory Tests 01/10/25 03:22 Test 01/10/25 03:22 Range/Units Serum Glucose 95 74-106 mg/dL Problem List Come Metabolic encephalopathy Hypoxic encephalopathy Toxic encephalopathy ? Status epileptics New onset seizure, status epileptics Likely secondary to substance abuse Rule out epileptic seizure or other acute symptomatic seizure The activity witnessed on 12/23/2024 was not typical to seizure, likely myoclonus Substance abuse ? Depression Respiratory failure/hypoxia Pneumonia Assessment/Plan Monitoring Supportive treatment Telemetry Follow-up lab ICU care Stabilize vitals/pressor drip Respiratory support/vent management Ativan for seizure breakthrough Cut down Keppra to 500 mg IV b.i.d. , he may not need preventive seizure treatment Need history from him directly Consider tele psych consultation Re: The previous substance abuse later Tracheostomy on 01/11/2025 More recommendation per clinical course This medical document was created using an electronic medical record system with [employer] computerized dictation system. Although this document has been carefully reviewed, there may still be some phonetic and typographical errors. These areas are purely typographical due to imperfections of the software programs, and do not reflect any compromise in the patient's medical care. Prognosis guarded Dietary Evaluation Review Comments: 1) Continue TPN to meet at least 75% estimated needs 2) TF Vital High Protein @ 60ml/hr(goal) with current rate of propofol. TF at goal volume together with propofol provides 2471 kcal (100% eenrgy needs) & 126 gm protein (100% protein needs) 3) Monitor TPN tolerance, lab values, I/O, wt trend Expected Outcomes/Goals: To meet >75% estimated needs Fu 2-3 days Plan discussed with: Other BONNY PEREZ MD Jan 10, 2025 09:30
--- NOTE | 2025-01-10 09:31 | DVHINCON2 ---
Date of service: Jan 10, 2025 Allergies: Coded Allergies: NO KNOWN ALLERGIES (Unverified , 12/17/24) Home Meds Reported Medications Lisinopril (Lisinopril) 10 Mg Tab, 10 MG PO DAILY for 30 Days, MG 12/19/24 Gabapentin (Gabapentin) 100 Mg Cap, PO 12/18/24 Divalproex Sodium (Divalproex Sodium Dr) 500 Mg Tab, 1 TAB PO DAILY 12/18/24 Quetiapine Fumerate (QUETIAPINE FUMARATE) 50 Mg Tab, 1 TAB PO DAILY 12/18/24 Escitalopram Oxalate (ESCITALOPRAM OXALATE) 10 Mg Tab, 1 TAB PO DAILY 12/18/24 Current Medications Current Medications Medications (Trade) Dose Ordered Sig/Rick Route PRN Reason Start Time Stop Time Status Last Admin Potassium Chloride 100 ml @ 50 mls/hr Q2H IV 01/10/25 07:30 01/10/25 11:29 01/10/25 09:16 Vital Signs Vital Signs Date Time Temp Pulse Resp B/P (MAP) Pulse Ox O2 Delivery O2 Flow Rate FiO2 01/10/25 09:16 118/61 01/10/25 08:15 72 20 97 01/10/25 08:00 Mechanical Ventilator+ 40 40 01/10/25 08:00 98.7 98.7 01/08/25 20:30 40.0 Labs/Diagnostic Data Labs Test 01/10/25 07:05 01/10/25 05:12 01/10/25 03:22 01/07/25 13:10 Range/Units Blood Gas Specimen Type Arterial Blood Gas Sample Site Right radial Blood Gas Patient Temperature 37.0 Arterial Blood Date Drawn [id number] Arterial Blood pH 7.421 7.350-7.450 Arterial Blood Partial Pressure CO2 39.7 35.0-48.0 mmHg Arterial Blood Partial Pressure O2 64.0 L 83.0-108.0 mmHg Arterial Blood HCO3 25.2 21.0-28.0 mmol/L Arterial Blood Oxygen Saturation 89.9 L 94.0-98.0 % Arterial Blood Base Excess 0.8 -2.0-3.0 mmol/L Arterial Blood Oxyhemoglobin 89.4 L 94.0-98.0 % Arterial Blood Carboxyhemoglobin 0.3 L 0.5-1.5 % Arterial Blood Methemoglobin 0.3 0.0-1.5 % Jesus Test Yes Blood Gas Total Hemoglobin 11.90 L 13.5-17.5 g/dL Blood Gas Set Respiration Rate 20.0 Blood Gas Modality Vent - ac FiO2 % 40.0 Blood Gas Tidal Volume 550.0 Blood Gas PEEP or CPAP 5.0 POC Glucose 77 70-106 mg/dl White Blood Count 5.6 # 4.4-10.8 10^3/uL Red Blood Count 3.55 L 4.5-5.90 10^6/uL Hemoglobin 10.8 L 13.5-17.5 g/dL Hematocrit 31.2 L 41.0-53.0 % Mean Corpuscular Volume 88.0 80.0-100.0 fL Mean Corpuscular Hemoglobin 30.3 28.0-32.0 pg Mean Corpuscular Hemoglobin Concent 34.5 32.0-36.0 g/dL Red Cell Distribution Width 14.9 H 11.8-14.3 % Platelet Count 393 140-450 10^3/uL Mean Platelet Volume 8.5 6.9-10.8 fL Neutrophils (%) (Auto) 64.2 37.0-80.0 % Lymphocytes (%) (Auto) 17.2 10.0-50.0 % Monocytes (%) (Auto) 11.3 0.0-12.0 % Eosinophils (%) (Auto) 6.1 0.0-7.0 % Basophils (%) (Auto) 1.2 0.0-2.0 % Neutrophils # (Auto) 3.6 1.6-8.6 10 ^3/uL Lymphocytes # (Auto) 1.0 0.4-5.4 10 ^3/uL Monocytes # (Auto) 0.6 0-1.3 10 ^3/uL Eosinophils # (Auto) 0.3 0-0.8 10 ^3/uL Basophils # (Auto) 0.1 0-0.2 10 ^3/uL Nucleated Red Blood Cells 0.0 % Prothrombin Time 11.3 9.3-11.8 sec Prothrombin Time INR 1.07 0.9-1.15 Sodium Level 141 136-145 mmol/L Potassium Level 3.2 L 3.5-5.1 mmol/L Chloride Level 103 98-107 mmol/L Carbon Dioxide Level 28 20-31 mmol/L Anion Gap 10 5-15 Blood Urea Nitrogen 9 9-23 mg/dL Creatinine 0.32 L 0.700-1.30 mg/dL Glomerular Filtration Rate Calc 166 >90 mL/min BUN/Creatinine Ratio 28.1 H 10.0-20.0 Serum Glucose 95 74-106 mg/dL Calcium Level 9.6 8.7-10.4 mg/dL Magnesium Level 1.7 1.6-2.6 mg/dL Total Bilirubin 0.3 0.2-1.0 mg/dL Aspartate Amino Transferase (AST) 16 13-40 U/L Alanine Aminotransferase (ALT) 40 7-40 U/L Alkaline Phosphatase 114 46-116 U/L Total Protein 7.0 5.7-8.2 g/dL Albumin 4.1 3.2-4.8 g/dL Vancomycin Level Trough 16.0 H 5-10 ug/mL Test 01/07/25 03:15 01/05/25 06:19 01/02/25 08:06 01/01/25 10:26 Range/Units Differential Total Cells Counted 100.0 100 Neutrophils % (Manual) 65 37.0-80.0 Band Neutrophils % (Manual) 3 Lymphocytes % (Manual) 18 10.0-50.0 Monocytes % (Manual) 7 0-12 Eosinophils % (Manual) 4 0-7 Basophils % (Manual) 0 0.0-2.0 Metamyelocytes % (manual) 0 Myelocytes % (Manual) 3 Promyelocytes % (Manual) 0 Blast Cells % (Manual) 0 Reactive Lymphocytes 0 Platelet Estimate Adequate Blood Gas Critical Value Read Back Yes Blood Gas Notified Whom Dr. crow mckenzie Blood Gas Notified Time [id number] Blood Gas Notified By Specimen Drawn By Nuria animal keeper head HIV (1&2) Antibody Negative Negative Test 12/30/24 21:00 12/29/24 01:55 12/28/24 03:40 12/27/24 03:02 Range/Units Influenza Type A Antigen Negative Negative Influenza Type B Antigen Negative Negative SARS-CoV-2 Antigen (Rapid) Negative NEGATIVE Large Platelets Few Phosphorus Level 4.6 2.4-5.1 mg/dL Random Vancomycin Level 6.3 5-10 ug/mL Triglycerides Level 229 H < 150 mg/dL Test 12/26/24 03:33 12/25/24 10:05 12/24/24 10:05 12/23/24 08:50 Range/Units Red Blood Cell Morphology Normal Creatine Kinase 640 H 46-171 U/L Activated Partial Thromboplast Time 29.9 24.5-34.5 SEC Prolactin 31.53 H 2.1-17.7 ng/mL Test 12/23/24 08:15 12/21/24 20:19 12/20/24 13:15 12/18/24 15:29 Range/Units Lactic Acid Level 0.4 0.4-2.0 mmol/L Blood Gas Spontaneous Rate 20 Blood Gas Spontaneous Tidal Volume 559 Blood Gas Inspiratory Pressure 18.0 Bl Gas Inspiratory/Expiratory Ratio 1:2 Vitamin B12 Level 272 211-911 pg/mL Folic Acid 12.54 >5.38 ng/mL Lactate Dehydrogenase 221 120-246 U/L Test 12/18/24 06:07 12/17/24 23:14 12/17/24 22:08 12/17/24 21:15 Range/Units Hepatitis B Surface Antigen Negative Negative Hepatitis C Antibody Negative Negative Urine Color Light-yellow Yellow Urine Clarity Clear Clear Urine pH 6.5 5.0-9.0 Urine Specific [place] 1.024 1.001-1.035 Urine Protein Negative Negative Urine Ketones Trace Negative Urine Blood Negative Negative /uL Urine Nitrite Negative Negative Urine Bilirubin Negative Negative Urine Urobilinogen Normal Negative mg/dL Urine Leukocyte Esterase Negative Negative /uL Urine RBC 1 0 - 3 /hpf Urine Microscopic WBC < 1 0-3 /HPF Urine Squamous Epithelial Cells Few <5 /hpf Urine Bacteria None seen None Seen /hpf Urine Yeast (Bud[place]) Occasional None Seen /hpf Urine Glucose Normal Normal mg/dL Urine Opiates Screen Neg NEGATIVE Urine Fentanyl Screen Neg NEGATIVE Urine Barbiturates Screen Neg NEGATIVE Urine Phencyclidine Screen Neg NEGATIVE Urine Amphetamines Screen Neg NEGATIVE Urine Benzodiazepines Screen Pos NEGATIVE Urine Cocaine Screen Neg NEGATIVE Urine Cannabinoids Screen Neg NEGATIVE Troponin I High Sensitivity < 3 L </=54 ng/L Valproic Acid Level 22.1 L 50-100 ug/mL Plasma/Serum Blood Alcohol < 3.0 <10 mg/dL Microbiology Date/Time Source Procedure Growth Status 01/04/25 18:35 Blood Blood Culture - Final NO GROWTH AFTER 5 DAYS OF INCUBATION. Complete 01/04/25 18:15 Sputum Gram Stain - Final Complete 01/04/25 18:15 Respiratory Culture - Final Staphylococcus aureus Complete 01/04/25 17:00 Urine - [place] Urine Culture - Final Complete 12/25/24 15:20 Catheter Site Aerobic Culture - Final Staphylococcus epidermidis Complete Assessment 01/10/25 patient intubated and sedated, he is a cocaine and ecstasy drug abuser with history of seizures, has been intubated for extended period of time and continues to fail CPAP trials, i am requested to do a tracheostomy. Patients mother is at bedside and I explained to her that the patgient's morbid obesity and short neck will make the operation exceptionally difficult. His ventilator settings are now acceptable to proceed with the operation, I will schedule procedure for Friday. all of mother's questions were answered.. Plan discussed with: Other OSMAN BOB MD Jan 10, 2025 09:30
--- NOTE | 2025-01-10 09:51 | DVH ---
CHEST RADIOGRAPH Indication: f/u intubated Technique: Single frontal view of the chest was obtained Comparison: XY CHEST XRAY 1 VIEW on DOS: 01/09/25, XY CHEST PORTABLE on DOS: 01/08/25, XY CHEST PORTABL E on DOS: 01/07/25, XY CHEST PORTABLE on DOS: 01/06/25, XY CHEST PORTABLE on DOS: 01/05/25, XY CHEST XRA Y 1 VIEW on DOS: 01/09/25 FINDINGS: Lines and Tubes: Right PICC, endotracheal tube and enteric catheter in satisfactory position. Lungs: Low lung volumes. Congestion. Pleura: No effusion. No pneumothorax. Cardiomediastinal contours: Unremarkable Bones: Unremarkable IMPRESSION: Lines and tubes in satisfactory position. No significant interval change.
[2025-01-10] MEDS: MAGNESIUM SULFATE 1GM/100ML 100 ML IV SCH (11:29)
--- NOTE | 2025-01-10 17:08 | DVHPNRES ---
Progress Note Date Seen: Jan 10, 2025 Resident Creating Document: AC GRIFFITH RESIDENT Medical Necessity Reason Pt with a Central, PICC or Fol: Yes The following are medically ne: Reed Catheter Reason for reed catheter: Strict I&O Subjective Review of Systems Mr. Lynn is a 24-year-old male with hypertension, chronic pain, and substance abuse disorder was admitted after new-onset seizures, reportedly due to heavy nitrous oxide use. He was intubated on 12/18/2024 following status epilepticus and placed on multiple sedatives including propofol, Versed, and fentanyl. A right IJ central line and OG tube were placed with difficulty due to body habitus. He was transferred to the ICU and maintained on deep sedation. Despite initial seizure control, breakthrough seizures occurred on 12/23, prompting resumption of Versed. Vancomycin and Zosyn were started for fever and leukocytosis. Sedation vacations were attempted intermittently with variable success. Pulmonary status fluctuated, requiring FiO2 up to 100% and PEEP adjustments. Bronchoscopy was performed on 12/26. Due to prolonged intubation (day 12 by 12/29), tracheostomy was considered. Lovenox was initiated for suspected thromboembolism, later discontinued due to ruled out PE. Oxygenation improved gradually, and FiO2 was reduced to 30% by 01/01. Sedation vacation on 01/04 showed no seizures and appropriate command following. Tracheostomy was deferred on 01/06 due to instability and FiO2 of 60%.FiO2 down to 50% on 01/07. Today, the patient was seen and examined at the bedside. Due to the patients clinical status, review of systems could not be obtained. The patient remains on mechanical ventilation with settings: RR 20, VT 550, FiO? 40%, PEEP 5. A surgical consult advised to do tracheostomy for Friday. Family members were present at the bedside; all concerns were addressed. The patient has had large bowel movements, likely due to MiraLax, lactulose, and Colace, held for now. Magnesium and potassium were repleted. Social service order placed for LTAC. Objective vital signs Vital Sign Date Time Temp Pulse Resp B/P (MAP) Pulse Ox O2 Delivery O2 Flow Rate FiO2 01/10/25 16:00 65 01/10/25 16:00 20 94 Mechanical Ventilator+ 40 40 01/10/25 16:00 98.0 110/56 (74) 98.0 7/26/25 20:30 40.0 Total Intake and Output 01/09/25 01/09/25 01/10/25 15:00 23:00 07:00 Intake Total 1226.2 ml 1393.5 ml 1714.5 ml Output Total 2725 ml 2350 ml Balance 1226.2 ml -1331.5 ml -635.5 ml medications Current Medications Medications Dose Ordered Sig/Rick Route Start Time Stop Time Status Last Admin Dose Admin Lorazepam 1 mg Q5MINP PRN IV 12/18/24 11:00 12/23/24 08:43 1 MG Midazolam HCl 50 ml @ 1 mls/hr Q24H IV 12/18/24 21:15 01/10/25 15:57 8 MLS/HR Diagnostic Test (Pha) 1 strip Q6HR 12/19/24 12:00 01/10/25 11:29 1 STRIP Insulin Human Regular FOLLOW SLIDING SCALE Q6HR SC 12/19/24 12:00 Dextrose 50 ml UD IV 12/19/24 10:00 12/22/24 23:25 50 ML Albuterol 2.5 mg Q6HR NEB 12/19/24 18:00 01/10/25 11:53 2.5 MG Ipratropium [place] 0.5 mg Q6HR NEB 12/19/24 18:00 01/10/25 11:53 0.5 MG Pantoprazole Sodium 40 mg DAILY IV 12/21/24 10:00 01/10/25 09:17 40 MG Polyethylene Glycol 17 gm DAILY PO 12/22/24 10:00 Hold 01/07/25 09:44 17 GM Docusate Sodium 100 mg BID GT 12/22/24 10:00 01/09/25 09:15 100 MG Thiamine HCl 100 mg DAILY IV 12/24/24 10:00 01/10/25 09:16 100 MG Folic Acid 1 mg/ Dextrose 50.2 ml @ 200.8 mls/ hr DAILY INJ 12/24/24 10:00 01/10/25 09:16 200.8 MLS/HR Sodium Chloride 10 ml QSHIFT@10,22 IV 12/24/24 22:00 01/10/25 09:17 10 ML Enteral Nutritional Formula 1,000 ml 40ML/HR GT 12/27/24 16:45 01/09/25 21:00 1,000 ML Lactulose 15 ml DAILY PO 12/28/24 10:00 Hold 01/09/25 09:17 15 ML Furosemide 40 mg DAILY IV 12/30/24 10:00 01/10/25 09:16 40 MG Acetaminophen 625 mg Q8HPRN PRN GT 12/31/24 16:00 01/05/25 00:32 625 MG Propofol 100 ml @ 4.11 mls/hr Q24H IV 01/05/25 15:45 01/10/25 16:32 41.1 MLS/HR Levetiracetam 100 ml @ 400 mls/hr BID IV 01/06/25 22:00 01/10/25 09:15 400 MLS/HR Fentanyl Citrate 250 ml @ 2.5 mls/hr Q24H IV 01/07/25 19:00 01/10/25 10:04 22.5 MLS/HR Vancomycin HCl 0 ml @ 0 mls/hr UD IV 01/08/25 15:15 Enoxaparin Sodium 40 mg Q12HP SC 01/10/25 22:00 Vancomycin HCl 200 ml @ 200 mls/hr Q6H IV 01/10/25 20:00 Examination Pt is lying on bed, RASS -3 General Appearance: Sedated and mechanically ventilated obese adult HEENT: Atraumatic, Mucous membranes moist/pink Respiratory: Coarse bilateral breath sounds, improved, vent settings RR 20, VT 550, FiO? 40%, PEEP 5 Cardiovascular: Regular rate, Normal S1, Normal S2, No murmurs Abdominal: Active bowel sounds, Soft, no distention, Extremities: No edema, Normal pulses, No tenderness/swelling Skin: No Significant rash, except past surgical scars Neuro: Reactive pupils, gag reflex intact Psych/Mental Status: Mental status NL, Mood NL Nurse was there as scagliola mechanic during examination laboratory and microbiology Laboratory Tests 01/10/25 03:22 Test 01/10/25 03:22 Range/Units Serum Glucose 95 74-106 mg/dL Microbiology Date/Time Source Procedure Growth Status 01/04/25 18:35 Blood Blood Culture - Final NO GROWTH AFTER 5 DAYS OF INCUBATION. Complete 01/04/25 18:15 Sputum Gram Stain - Final Complete 01/04/25 18:15 Respiratory Culture - Final Staphylococcus aureus Complete 01/04/25 17:00 Urine - Reed [place] Urine Culture - Final Complete 12/25/24 15:20 Catheter Site Aerobic Culture - Final Staphylococcus epidermidis Complete Labs and/or images reviewed: Labs reviewed by me, Image(s) reviewed by me Problem List/Assessment/Plan Problem List/Assessment/Plan Neurology # Acute toxic/metabolic encephalopathy with new-onset or breakthrough generalized seizures, likely multifactorial: # Medication nonadherence (valproic acid level 22.1, subtherapeutic) # Possible alcohol withdrawal (CIWA not assessable due to sedation) # Substance abuse (notably nitrous oxide) - Current sedation:Versed 8 mcg/kg/min, Fentanyl 225 mcg/hr, Propofol 50 mcg/kg/min - Seizure management as below - Versed - IV levetiracetam 1500 mg BID - IV lorazepam PRN - Last seizure on 12/23/2024 - EEG: Largely unremarkable - Head CT & Brain MRI: No acute findings; MRI showed pansinusitis and prominent cervical lymphadenopathy - Supportive care: Received IV banana bags x2, thiamine, and folic acid - Neurology is on board for ongoing evaluation Cardiovascular # HTN # Sepsis secondary to Aspiration pneumonia - stopped IV NS - not required pressors at this time - ABX continuing Respiratory # Acute hypoxic respiratory failure secondary to status epilepticus, intubated on 12/18/2024. # Probable aspiration pneumonia with MSSA isolated in both blood and respiratory cultures. # Pulmonary edema improving. # Bilateral pleural effusions noted on imaging. # Pulmonary embolism ruled out (CT angiography ordered, limited study, no large central PE.; no DVT on Doppler). - On mechanical ventilation: VC-AC mode, RR 20, TV 550 mL, PEEP 5, FiO? 40%. - Receiving ipratropium and albuterol nebulizers. - CXR: Hypoinflated lungs with bibasilar atelectasis; 12/29 CXR showed stable cardiomegaly, bilateral effusions, and right basilar airspace disease. - Antibiotics: IV Zosyn started 12/21, discontinued 01/09 - IV Vancomycin started 12/23, stopped 12/24, resumed 12/27 - IV Lasix 40 mg daily for volume management. - Therapeutic Lovenox initiated, later discontinued. - Repeat blood and sputum cultures confirmed MSSA. - plan for tracheostomy on Friday GI # transaminitis # Peptic ulcer prophylaxis # vitamin B12 deficiency # constipation, likely slow transit -Pantoprazole 40 mg IV daily - negative hepatitis-B and hepatitis-C - repleted with 1000 mcg B12 - lactulose daily - KUB: Nonobstructive bowel gas pattern. Moderate stool burden. -diet is Vital AF 40 mL # morbid obesity with a BMI 50.3 -nutritional counseling after extubation # Reed catheter changed on 01/04/2025 Nephrology # hypernatremia, now improved # hypokalemia, now improved # hypomagnesemia #? Rhabdomyolysis-improving - serum CK 2159 on 12/23/2024, 1263 on 12/24/2024 - monitor - keep potassium above 4 and magnesium above 2 - replete as needed, continuously monitor lab - avoid nephrotoxic agents ID # aspiration pneumonia # sepsis due to above # right IJ catheter tip (placed on 12/18/2024, removed on 12/24/2024) culture growing staph epidermidis - pancultures - IV Zosyn discontinued on 01/09 - IV vancomycin - Tylenol as needed for fever - s/p bronchoscopy x 2 - repeat blood cultures, repeat sputum cultures, showing staph aureus Hem/onc # microcytic anemia, mild - monitor Psychiatry # substance use disorder - we will consider Psychiatry consult once patient is extubated DVT prophylaxis: On Lovenox 40 mg b.i.d. Nutrition: Vital AF 40 mL Lines Right PICC placed on 12/24/24 Drips - Versed - fentanyl - propofol Intubated on 12/18/2024 Bronchoscopy on 12/26/24 Repeat bronchoscopy on 12/28/2024 Reed on 01/04/2025 Critical care time 81 minutes excluding procedure. Code status discussed greater than 29 minutes: Full CODE STATUS. Plan discussed with Dr. Iqbal, and nurse Detailed discussion held with patient's mother Ms. Sabillon at bedside., addressed all concerns Plan discussed with: Other (Mother and RN) My Orders My Orders Orders - AC GRIFFITH RESIDENT Procedure Category Date Status Time Chest Xray 1 View XY 01/10/25 Resulted 08:43 * Mine Safety Director CONS 01/10/25 Transmitted Consult Complete Blood Count LAB 01/11/25 Verified 04:00 Comprehensive LAB 01/11/25 Verified Metabolic Panel 04:00 Magnesium LAB 01/11/25 Verified 04:00 Chest Xray 1 View XY 01/11/25 Logged 04:00 Abg W/ Co-Ox RT 01/11/25 Logged 04:00 Dietary Evaluation Review Comments: 1) Continue TPN to meet at least 75% estimated needs 2) TF Vital High Protein @ 60ml/hr(goal) with current rate of propofol. TF at goal volume together with propofol provides 2471 kcal (100% eenrgy needs) & 126 gm protein (100% protein needs) 3) Monitor TPN tolerance, lab values, I/O, wt trend Expected Outcomes/Goals: To meet >75% estimated needs Fu 2-3 days Date of Service: Jan 10, 2025 Billing Provider: ANTHONY IQBAL MD Common Visit Codes: [id number] CARE 30-74 MIN, [id number] CARE-EACH +30MIN AC GRIFFITH RESIDENT Jan 10, 2025 17:08 ANTHONY IQBAL MD Jan 11, 2025 14:08
[2025-01-10] MEDS: ENOXAPARIN SOD 40 MG/0.4 ML SYRINGE SC SCH (21:55)
[2025-01-11] VITALS (108 sets, daily range): BP systolic 87–152; BP diastolic 39–100; PULSE 60–104; RESP 20–33; TEMP 98.4–100.2; O2SAT 90–99
[2025-01-11 04:04] LABS: Anion Gap 12 (5-15); Calcium 9.8 mg/dL (8.7-10.4); Carbon Dioxide 24 mmol/L (20-31); Chloride 104 mmol/L (98-107); Potassium 3.6 mmol/L (3.5-5.1); Sodium 140 mmol/L (136-145)
[2025-01-11 04:05] LABS: Glucose 87 mg/dL (74-106)
[2025-01-11 04:06] LABS: BUN/Creatinine Ratio 30.6 (10.0-20.0); Blood Urea Nitrogen 11 mg/dL (9-23); Hematocrit 34.1 % (41.0-53.0); Hemoglobin 11.7 g/dL (13.5-17.5); Magnesium 1.7 mg/dL (1.6-2.6); Mean Corpuscular Hemoglobin 30.8 pg (28.0-32.0); Mean Corpuscular Volume 89.7 fL (80.0-100.0); Total Protein 7.3 g/dL (5.7-8.2)
[2025-01-11 04:07] LABS: Albumin 4.3 g/dL (3.2-4.8)
[2025-01-11 04:08] LABS: Bilirubin, Total 0.3 mg/dL (0.2-1.0)
[2025-01-11 04:21] LABS: Alanine Aminotransferase 40 U/L (7-40); Alkaline Phosphatase 124 U/L (46-116)
[2025-01-11 04:49] LABS: Total Cells Counted 100.0 (100)
--- NOTE | 2025-01-11 05:33 | DVH ---
CHEST RADIOGRAPH Indication: F/U Technique: Single frontal view of the chest was obtained COMPARISON: XY CHEST XRAY 1 VIEW on DOS: 01/10/25, XY CHEST XRAY 1 VIEW on DOS: 01/09/25, XY CHEST PORT ABLE on DOS: 01/08/25, XY CHEST PORTABLE on DOS: 01/07/25, XY CHEST PORTABLE on DOS: 01/06/25 FINDINGS: Lines and Tubes: Endotracheal tube and enteric catheter in satisfactory position. Lungs: Congestion. Low lung volumes. Pleura: No effusion. No pneumothorax. Cardiomediastinal contours: Cardiomegaly Bones: Unremarkable IMPRESSION: Lines and tubes in satisfactory position. No significant interval change.
[2025-01-11 07:16] LABS: Base Excess -2.8 mmol/L (-2.0-3.0)
--- NOTE | 2025-01-11 09:57 | DVHPN2 ---
Progress Note - Dictate Date Seen: Jan 11, 2025 Medical Necessity Reason Pt with a Central, PICC or Fol: Yes The following are medically ne: Reed Catheter Reason for reed catheter: Strict I&O Subjective Mr. Perry is a 24 years old right-handed gentleman with a history of hypertension, pain syndrome, substance abuse, he was admitted to the [facility] on 12/17/2024 for new onset seizure activity. I have seen and examined the patient, discussed with his nurses. His mother is in the room. He is responsive to light touch, questionable responsiveness to his mother voice. He moves hhe hands slightly Fentanyl 225 mcg/hour, Versed 8 mg/hour, propofol 50 mcg/minute, FiO2: 40% Blood culture, 12/25/2024: No growth Sputum culture, 12/25/2024: Staphylococcus aureus Urine culture, 01/04/2025: Urinalysis, 12/17/2024: Unremarkable Urine drug screening, 12/17/2024: Benzo Valproic acid, 12/17/2024: 22.1 Plasma alcohol, 12/17/2024: <3 ABG, 12/18/2024: Respiratory acidosis, 12/20/2024: Acidosis, 12/22/2024: Hypoxia, 12/24/2024: Hypoxia, carbon dioxide retention, 12/25/2024: Hypoxia, carbon dioxide retention, 12/29/2024: Hypoxia, carbon dioxide retention WBC/HB/PLT/MCV, 12/20/2024: 8/12.4/233/90.4 CMP 12/18/2024: Unremarkable TBI/AST/ALT/AP, 12/20/2024: 0.7/44/45/143 EEG, 12/19/2019 10/26/24 13:15: Normal EEG, 12/23/2024: Moderately abnormal EEG Bronchoscopy 01/12/25: There were copious blood tinged secretions in the airways bilaterally Chest x-ray 12/18/2024: Endotracheal tube 0.7 cm above the rogers. Nasogastric tube in the proximal stomach Chest x-ray, 12/27/2024: 1. Stable mild multifocal bilateral pulmonary airspace disease, most notably at the lung bases. 2. Lines and tubes unchanged Chest x-ray, 12/29/2024: 1. Stable cardiomegaly, bilateral pleural effusions and moderate diffuse increased prominence of the pulmonary vasculature. 2. Right basilar pulmonary airspace disease. 3. Interval retraction of endotracheal tube as above. Remaining lines and tubes unchanged Chest x-ray, : Lines and tubes in satisfactory position. No significant interval change. CT head, 12/17/2024: No evidence of acute intracranial abnormality. If symptoms persist, consider MRI for further evaluation MR head, 12/21/2024: No evidence of acute infarction, intracranial hemorrhage, mass effect or hydrocephalus. No evidence of mesial temporal sclerosis. Pansinusitis. Prominent bilateral cervical lymph nodes. This can be further evaluated with ultrasound vital signs Vital Sign Date Time Temp Pulse Resp B/P (MAP) Pulse Ox O2 Delivery O2 Flow Rate FiO2 01/11/25 09:45 85 24 139/76 (97) 97 01/11/25 08:00 Mechanical Ventilator+ 40 40 01/11/25 08:00 100.2 100.2 Total Intake and Output 01/10/25 01/10/25 01/11/25 15:00 23:00 07:00 Intake Total 1726.2 ml 1329.0 ml 1239.7 ml Output Total 2225 ml 750 ml Balance 1726.2 ml -896.0 ml 489.7 ml medications Current Medications Medications Dose Ordered Sig/Rick Route Start Time Stop Time Status Last Admin Dose Admin Lorazepam 1 mg Q5MINP PRN IV 12/18/24 11:00 12/23/24 08:43 1 MG Midazolam HCl 50 ml @ 1 mls/hr Q24H IV 12/18/24 21:15 01/11/25 03:34 8 MLS/HR Diagnostic Test (Pha) 1 strip Q6HR 12/19/24 12:00 01/11/25 05:40 1 STRIP Insulin Human Regular FOLLOW SLIDING SCALE Q6HR SC 12/19/24 12:00 Dextrose 50 ml UD IV 12/19/24 10:00 12/22/24 23:25 50 ML Albuterol 2.5 mg Q6HR NEB 12/19/24 18:00 01/11/25 06:20 2.5 MG Ipratropium [place] 0.5 mg Q6HR NEB 12/19/24 18:00 01/11/25 06:20 0.5 MG Pantoprazole Sodium 40 mg DAILY IV 12/21/24 10:00 01/11/25 09:30 40 MG Polyethylene Glycol 17 gm DAILY PO 12/22/24 10:00 Hold 01/07/25 09:44 17 GM Docusate Sodium 100 mg BID GT 12/22/24 10:00 01/11/25 09:31 100 MG Thiamine HCl 100 mg DAILY IV 12/24/24 10:00 01/11/25 09:30 100 MG Folic Acid 1 mg/ Dextrose 50.2 ml @ 200.8 mls/ hr DAILY INJ 12/24/24 10:00 01/11/25 09:31 200.8 MLS/HR Sodium Chloride 10 ml QSHIFT@10,22 IV 12/24/24 22:00 01/11/25 09:30 10 ML Enteral Nutritional Formula 1,000 ml 40ML/HR GT 12/27/24 16:45 01/09/25 21:00 1,000 ML Lactulose 15 ml DAILY PO 12/28/24 10:00 Hold 01/09/25 09:17 15 ML Furosemide 40 mg DAILY IV 12/30/24 10:00 01/11/25 09:31 40 MG Acetaminophen 625 mg Q8HPRN PRN GT 12/31/24 16:00 01/05/25 00:32 625 MG Propofol 100 ml @ 4.11 mls/hr Q24H IV 01/05/25 15:45 01/11/25 08:32 41.1 MLS/HR Levetiracetam 100 ml @ 400 mls/hr BID IV 01/06/25 22:00 01/11/25 09:31 400 MLS/HR Fentanyl Citrate 250 ml @ 2.5 mls/hr Q24H IV 01/07/25 19:00 01/11/25 07:36 22.5 MLS/HR Vancomycin HCl 0 ml @ 0 mls/hr UD IV 01/08/25 15:15 Enoxaparin Sodium 40 mg Q12HP SC 01/10/25 22:00 01/11/25 09:30 40 MG Vancomycin HCl 200 ml @ 200 mls/hr Q6H IV 01/10/25 20:00 01/11/25 07:34 200 MLS/HR Magnesium Sulfate/ Dextrose 100 ml @ 100 mls/hr Q1HR IV 01/11/25 10:00 01/11/25 11:59 objective The patient is well-nourished and well-developed with no distress. The patient is intubated MENTAL STATUS: Subjective CRANIAL NERVES: Pupils are equal, round and nonreactive, small. There are corneal reflexes and doll's eyes phenomenon (see subjective). No signs of facial weakness. There are gagging or coughing reflexes SENSATION: Responses to pain stimuli. MOTOR: Normal tone in the upper and lower extremity. Normal muscle bulk. No fasciculations. No spontaneous movement in the arms and the legs REFLEXES: Deep tendon reflexes are symmetrical. No pathological reflexes. CEREBELLAR/COORDINATION: Deferred GAIT/STATION: deferred laboratory and microbiology Laboratory Tests 01/11/25 03:10 Test 01/11/25 03:10 Range/Units Serum Glucose 87 74-106 mg/dL Problem List Come Metabolic encephalopathy Hypoxic encephalopathy Toxic encephalopathy ? Status epileptics New onset seizure, status epileptics Likely secondary to substance abuse Rule out epileptic seizure or other acute symptomatic seizure The activity witnessed on 12/23/2024 was not typical to seizure, likely myoclonus Substance abuse ? Depression Respiratory failure/hypoxia Pneumonia Assessment/Plan Monitoring Supportive treatment Telemetry Follow-up lab ICU care Stabilize vitals Respiratory support/vent management Ativan for seizure breakthrough Cut down Keppra to 500 mg IV b.i.d. , he may not need preventive seizure treatment Need history from him directly Consider tele psych consultation Re: The previous substance abuse later Tracheostomy on 01/12/2025 More recommendation per clinical course This medical document was created using an electronic medical record system with [employer] computerized dictation system. Although this document has been carefully reviewed, there may still be some phonetic and typographical errors. These areas are purely typographical due to imperfections of the software programs, and do not reflect any compromise in the patient's medical care. Prognosis Guarded Dietary Evaluation Review Comments: 1) Continue TPN to meet at least 75% estimated needs 2) TF Vital High Protein @ 60ml/hr(goal) with current rate of propofol. TF at goal volume together with propofol provides 2471 kcal (100% eenrgy needs) & 126 gm protein (100% protein needs) 3) Monitor TPN tolerance, lab values, I/O, wt trend Expected Outcomes/Goals: To meet >75% estimated needs Fu 2-3 days Plan discussed with: Other BONNY PEREZ MD Jan 11, 2025 09:57
[2025-01-11] MEDS: MAGNESIUM SULFATE 1GM/100ML 100 ML IV SCH (10:23)
[2025-01-11] MEDS: POTASSIUM CHL 20MEQ/100ML 100 ML IV ONE (10:24)
--- NOTE | 2025-01-11 11:44 | DVHPNRES ---
Progress Note Date Seen: Jan 11, 2025 Resident Creating Document: AC GRIFFITH RESIDENT Medical Necessity Reason Pt with a Central, PICC or Fol: Yes The following are medically ne: Reed Catheter Reason for reed catheter: Strict I&O Subjective Review of Systems Shane Perry is a 24-year-old male with hypertension, chronic pain, and substance abuse disorder was admitted after new-onset seizures, reportedly due to heavy nitrous oxide use. He was intubated on 12/18/2024 following status epilepticus and placed on multiple sedatives including propofol, Versed, and fentanyl. Patient seen and examined at the bedside. Due to patient's clinical status ROS could not obtained. Patient is on mechanical ventilation with a RASS -3 with the same vent settings as a yesterday RR 20, VT 550, FiO2 40%, peep 5. Plan for tracheostomy tomorrow. Replacing potassium and magnesium. Mother at bedside, addressed all concerns. Changes from previous H/P or p: No Changes Objective vital signs Vital Sign Date Time Temp Pulse Resp B/P (MAP) Pulse Ox O2 Delivery O2 Flow Rate FiO2 01/11/25 10:20 87 20 142/68 (92) 97 40 01/11/25 10:00 Mechanical Ventilator+ 01/11/25 08:00 100.2 100.2 Total Intake and Output 01/10/25 01/10/25 01/11/25 15:00 23:00 07:00 Intake Total 1726.2 ml 1329.0 ml 1239.7 ml Output Total 2225 ml 750 ml Balance 1726.2 ml -896.0 ml 489.7 ml medications Current Medications Medications Dose Ordered Sig/Rick Route Start Time Stop Time Status Last Admin Dose Admin Lorazepam 1 mg Q5MINP PRN IV 12/18/24 11:00 12/23/24 08:43 1 MG Midazolam HCl 50 ml @ 1 mls/hr Q24H IV 12/18/24 21:15 01/11/25 10:25 8 MLS/HR Diagnostic Test (Pha) 1 strip Q6HR 12/19/24 12:00 01/11/25 05:40 1 STRIP Insulin Human Regular FOLLOW SLIDING SCALE Q6HR SC 12/19/24 12:00 Dextrose 50 ml UD IV 12/19/24 10:00 12/22/24 23:25 50 ML Albuterol 2.5 mg Q6HR NEB 12/19/24 18:00 01/11/25 06:20 2.5 MG Ipratropium [place] 0.5 mg Q6HR NEB 12/19/24 18:00 01/11/25 06:20 0.5 MG Pantoprazole Sodium 40 mg DAILY IV 12/21/24 10:00 01/11/25 09:30 40 MG Polyethylene Glycol 17 gm DAILY PO 12/22/24 10:00 Hold 01/07/25 09:44 17 GM Docusate Sodium 100 mg BID GT 12/22/24 10:00 01/11/25 09:31 100 MG Thiamine HCl 100 mg DAILY IV 12/24/24 10:00 01/11/25 09:30 100 MG Folic Acid 1 mg/ Dextrose 50.2 ml @ 200.8 mls/ hr DAILY INJ 12/24/24 10:00 01/11/25 09:31 200.8 MLS/HR Sodium Chloride 10 ml QSHIFT@10,22 IV 12/24/24 22:00 01/11/25 09:30 10 ML Enteral Nutritional Formula 1,000 ml 40ML/HR GT 12/27/24 16:45 01/09/25 21:00 1,000 ML Lactulose 15 ml DAILY PO 12/28/24 10:00 Hold 01/09/25 09:17 15 ML Furosemide 40 mg DAILY IV 12/30/24 10:00 01/11/25 09:31 40 MG Acetaminophen 625 mg Q8HPRN PRN GT 12/31/24 16:00 01/05/25 00:32 625 MG Propofol 100 ml @ 4.11 mls/hr Q24H IV 01/05/25 15:45 01/11/25 11:07 41.1 MLS/HR Fentanyl Citrate 250 ml @ 2.5 mls/hr Q24H IV 01/07/25 19:00 01/11/25 07:36 22.5 MLS/HR Vancomycin HCl 0 ml @ 0 mls/hr UD IV 01/08/25 15:15 Enoxaparin Sodium 40 mg Q12HP SC 01/10/25 22:00 01/11/25 09:30 40 MG Vancomycin HCl 200 ml @ 200 mls/hr Q6H IV 01/10/25 20:00 01/11/25 07:34 200 MLS/HR Magnesium Sulfate/ Dextrose 100 ml @ 100 mls/hr Q1HR IV 01/11/25 10:00 01/11/25 11:59 01/11/25 11:29 100 MLS/HR Levetiracetam 200 mg/Sodium Chloride 27 ml @ 108 mls/hr BID IV 01/11/25 10:00 Examination Pt is lying on bed, RASS -3 General Appearance: Sedated and mechanically ventilated obese adult HEENT: Atraumatic, Mucous membranes moist/pink, short neck Respiratory: Coarse bilateral breath sounds, improved, vent settings RR 20, VT 550, FiO 40%, PEEP 5 Cardiovascular: Regular rate, Normal S1, Normal S2, No murmurs Abdominal: Active bowel sounds, Soft, no distention, Extremities: No edema, Normal pulses, No swelling Skin: No Significant rash, except past surgical scars Neuro: Reactive pupils, gag reflex intact Psych/Mental Status: Mental status NL, Mood NL Nurse was there as kids activities coach during examination laboratory and microbiology Laboratory Tests 01/11/25 03:10 Test 01/11/25 03:10 Range/Units Serum Glucose 87 74-106 mg/dL Microbiology Date/Time Source Procedure Growth Status 01/04/25 18:35 Blood Blood Culture - Final NO GROWTH AFTER 5 DAYS OF INCUBATION. Complete 01/04/25 18:15 Sputum Gram Stain - Final Complete 01/04/25 18:15 Respiratory Culture - Final Staphylococcus aureus Complete 01/04/25 17:00 Urine - Reed [place] Urine Culture - Final Complete 12/25/24 15:20 Catheter Site Aerobic Culture - Final Staphylococcus epidermidis Complete Labs and/or images reviewed: Labs reviewed by me, Image(s) reviewed by me Problem List/Assessment/Plan Problem List/Assessment/Plan Neurology # Acute toxic/metabolic encephalopathy with new-onset or breakthrough generalized seizures, likely multifactorial: # Medication nonadherence (valproic acid level 22.1, subtherapeutic) # Possible alcohol withdrawal (CIWA not assessable due to sedation) # Substance abuse (notably nitrous oxide) - Current sedation:Versed 8 mcg/kg/min, Fentanyl 200 mcg/hr, Propofol 50 mcg/kg/min - Seizure management as below - Versed - IV levetiracetam 1500 mg BID - IV lorazepam PRN - Last seizure on 12/23/2024 - EEG: Largely unremarkable - Head CT & Brain MRI: No acute findings; MRI showed pansinusitis and prominent cervical lymphadenopathy - Supportive care: Received IV banana bags x2, thiamine, and folic acid - Neurology is on board for ongoing evaluation Cardiovascular # HTN # Sepsis secondary to aspiration pneumonia - stopped IV NS -Abx Vancomysin Respiratory # Acute hypoxic respiratory failure secondary to status epilepticus, intubated on 12/18/2024. # Probable aspiration pneumonia with MSSA isolated in both blood and respiratory cultures. # Pulmonary edema improving. # Bilateral pleural effusions noted on imaging. # Pulmonary embolism ruled out (CT angiography ordered; no DVT on Doppler). - On mechanical ventilation: VC-AC mode, RR 20, TV 550 mL, PEEP 5, FiO? 40%. - Receiving ipratropium and albuterol nebulizers. - CXR: Hypoinflated lungs with bibasilar atelectasis; 12/29 CXR showed stable cardiomegaly, bilateral effusions, and right basilar airspace disease. - Antibiotics: IV Zosyn started 12/21, discontinued 01/09 - IV Vancomycin started 12/23, stopped 12/24, resumed 12/27 - IV Lasix 40 mg daily for volume management. - Therapeutic Lovenox initiated, later discontinued. - Repeat blood and sputum cultures confirmed MSSA. - plan for tracheostomy on Tommorr (Friday) GI # Transaminitis-improving # Peptic ulcer prophylaxis # Vitamin B12 deficiency # Constipation, likely slow transit, relieved by lactose,MiraLax& Colace -Pantoprazole 40 mg IV daily - negative hepatitis-B and hepatitis-C - repleted with 1000 mcg B12 - lactulose daily - KUB: Nonobstructive bowel gas pattern. Moderate stool burden. - diet is Vital AF 40 mL # morbid obesity with a BMI 50.3 -nutritional counseling after extubation # Reed catheter changed on 01/04/2025 Nephrology # hypernatremia, now improved # hypokalemia, now improved # hypomagnesemia #? Rhabdomyolysis-improving - serum CK 2159 on 12/23/2024, 1263 on 12/24/2024 - monitor -keep potassium above 4 and magnesium above 2 -replete as needed, continuously monitor lab -avoid nephrotoxic agents ID # aspiration pneumonia # sepsis due to above # right IJ catheter tip (placed on 12/18/2024, removed on 12/24/2024) culture growing staph epidermidis - pancultures - IV Zosyn discontinued on 01/09 - IV vancomycin - Tylenol as needed for fever - s/p bronchoscopy x 2 - repeat blood cultures, repeat sputum cultures, showing staph aureus Hem/onc # microcytic anemia, mild - monitor Psychiatry # substance use disorder - we will consider Psychiatry consult once patient is extubated DVT prophylaxis: On Lovenox 40 mg b.i.d. Nutrition: Vital AF 40 mL Lines Right PICC placed on 12/24/24 Drips - Versed - fentanyl - propofol Intubated on 12/18/2024 Bronchoscopy on 12/26/24 Repeat bronchoscopy on 12/28/2024 Reed on 01/04/2025 Critical care time 81 minutes excluding procedure. Code status discussed greater than 29 minutes: Full CODE STATUS. Plan discussed with Dr. Iqbal, and nurse Detailed discussion held with patient's mother Ms. Sabillon at bedside., addressed all concerns including about tracheostomy. Plan discussed with: Other (Mother and RN) My Orders My Orders Orders - AC GRIFFITH RESIDENT Procedure Category Date Status Time * Chief Human Resources Officer CONS 01/10/25 Transmitted Consult Chest Xray 1 View XY 01/11/25 Resulted 04:00 Abg W/ Co-Ox RT 01/11/25 Logged 04:00 Magnesium Sulfate PHA 01/11/25 In Process 1gm/100ml 10:00 Dietary Evaluation Review Comments: 1) Continue TPN to meet at least 75% estimated needs 2) TF Vital High Protein @ 60ml/hr(goal) with current rate of propofol. TF at goal volume together with propofol provides 2471 kcal (100% eenrgy needs) & 126 gm protein (100% protein needs) 3) Monitor TPN tolerance, lab values, I/O, wt trend Expected Outcomes/Goals: To meet >75% estimated needs Fu 2-3 days Date of Service: Jan 11, 2025 Billing Provider: ANTHONY IQBAL MD Common Visit Codes: 41109-COOYYBTY CARE 30-74 MIN, 70462-LOUDUJSI CARE-EACH +30MIN AC GRIFFITH Jan 11, 2025 11:44 ANTHONY IQBAL MD Jan 12, 2025 14:33
[2025-01-12] VITALS (102 sets, daily range): BP systolic 104–148; BP diastolic 47–95; PULSE 60–121; RESP 15–26; TEMP 98.4–100.1; O2SAT 80–100
[2025-01-12 04:17] LABS: Albumin 4.3 g/dL (3.2-4.8); Anion Gap 9 (5-15); BUN/Creatinine Ratio 29.3 (10.0-20.0); Bilirubin, Total 0.3 mg/dL (0.2-1.0); Blood Urea Nitrogen 12 mg/dL (9-23); Calcium 9.8 mg/dL (8.7-10.4); Carbon Dioxide 26 mmol/L (20-31); Chloride 104 mmol/L (98-107); Glucose 81 mg/dL (74-106); Magnesium 1.8 mg/dL (1.6-2.6); Potassium 3.5 mmol/L (3.5-5.1); Sodium 139 mmol/L (136-145); Total Protein 7.3 g/dL (5.7-8.2)
[2025-01-12 04:19] LABS: Hematocrit 34.0 % (41.0-53.0); Hemoglobin 11.6 g/dL (13.5-17.5); Mean Corpuscular Hemoglobin 30.4 pg (28.0-32.0); Mean Corpuscular Volume 89.0 fL (80.0-100.0); Nucleated Red Blood Cells % 0.1 %
[2025-01-12 04:34] LABS: Alanine Aminotransferase 40 U/L (7-40); Alkaline Phosphatase 126 U/L (46-116)
--- NOTE | 2025-01-12 04:50 | DVH ---
CHEST RADIOGRAPH Indication: F/u Technique: Single frontal view of the chest was obtained COMPARISON: XY CHEST XRAY 1 VIEW on DOS: 01/11/25, XY CHEST XRAY 1 VIEW on DOS: 01/10/25, XY CHEST XRAY 1 VIEW on DOS: 01/09/25, XY CHEST PORTABLE on DOS: 01/08/25, XY CHEST PORTABLE on DOS: 01/07/25 FINDINGS: Lines and Tubes: Unchanged. Lungs: Stable diffuse increased prominence of the pulmonary vasculature and right mid lung atelectasi s. Probable small left pleural effusion. No pneumothorax. Cardiomediastinal contours: Cardiomegaly Bones: Unremarkable IMPRESSION: 1. Diffuse increased prominence of the pulmonary vasculature, left pleural effusion and cardiomegaly. 2. Lines and tubes unchanged.
[2025-01-12] MEDS: POTASSIUM CHL 20MEQ/100ML 100 ML IV ONE (06:15)
[2025-01-12 06:26] LABS: Base Excess 1.0 mmol/L (-2.0-3.0)
[2025-01-12] MEDS ORDERED: HYDROmorphone HCL 2 MG/ML VL/or syr ONE (07:09)
[2025-01-12] MEDS ORDERED: PHENYLEPHRINE HCL 10 MG/ML VL ONE (07:10)
[2025-01-12] MEDS ORDERED: KETAMINE 50mg/ML 10ml Vial 10 ML ONE (07:10)
[2025-01-12] MEDS ORDERED: MIDAZOLAM HCL 2MG/2ML 2ml VIAL (1mg/ml) ONE (07:12)
[2025-01-12] MEDS: LIDOCAINE W/ EPINEPHRINE 1% 20ML VIAL ONE (08:15)
[2025-01-12] MEDS ORDERED: ROCURONIUM 10MG/ML 10ML VIAL IV ONE (08:29)
[2025-01-12] MEDS ORDERED: ONDANSETRON HCL 4 MG/2 ML VIAL ONE (08:29)
--- NOTE | 2025-01-12 09:04 | DVHOP ---
DATE OF SURGERY: 01/12/2025 PREOPERATIVE DIAGNOSIS: Ventilator-dependent respiratory failure. POSTOPERATIVE DIAGNOSIS: Ventilator-dependent respiratory failure. SURGEON: Nicholas Farris MD ELECTRONIC SENSING EQUIPMENT ASSEMBLER: Tima Lucas. ANESTHESIA: General endotracheal. ANESTHESIOLOGIST: Dr. Christy. PROCEDURE: Tracheostomy. DESCRIPTION OF PROCEDURE: Under adequate anesthesia with the patient's skin prepped and draped, an anterior cervical incision was made. The patient's morbid obesity and extremely short neck stature made this operation very difficult. The incision was deepened with abundant subcutaneous fat down onto the fibers of the strap muscles, which were divided in the midline and retracted laterally using appendiceal retractors. The patient's pretracheal tissues were divided with electrocautery at this point as the patient was ventilated by room air to minimize the likelihood of an airway fire. The tracheotomy was fashioned and dilated. The trachea was held upward and forward by a tracheal hook. The tracheotomy was dilated to accommodate a size 8 tracheostomy tube. The 8 tracheostomy tube was then inserted as the anesthesiologist withdrew the endotracheal tube under direct vision. Reaching the final position, the tracheostomy was secured by insufflation of 7 mL of air into the cuff. Immediately upon reaching its final position, the tracheostomy resumed CO2 capture and preoperative level of ventilation. Two interrupted Prolene sutures, 2-0 in size were placed through the tracheostomy bridge as well as a circumferential umbilical tape to secure the tracheostomy. Two interrupted Prolene sutures were used for closure of the incision. The patient remained in unchanged clinical condition at the termination of the procedure. A chest x-ray was ordered and is pending at the time of this dictation. The patient was returned to the Intensive Care Unit on the same ventilator settings as preoperatively. His mother, Ngozi Perry was thoroughly informed at [phone]. MD KEEGAN Lee/KEVIN TID: [id number] RECEIPT: [id number]
--- NOTE | 2025-01-12 09:21 | DVH ---
CHEST RADIOGRAPH Indication: tracheostomy Technique: Single frontal view of the chest was obtained COMPARISON: XY CHEST XRAY 1 VIEW on DOS: 01/12/25, XY CHEST XRAY 1 VIEW on DOS: 01/11/25, XY CHEST XRAY 1 VIEW on DOS: 01/10/25, XY CHEST XRAY 1 VIEW on DOS: 01/09/25, XY CHEST PORTABLE on DOS: 01/08/25 FINDINGS: Lines and Tubes: Right PICC and tracheostomy in satisfactory position. Lungs: Multifocal airspace disease Pleura: No effusion. No pneumothorax. Cardiomediastinal contours: Cardiomegaly Bones: Unremarkable IMPRESSION: Lines and tubes in satisfactory position. No significant interval change.
--- NOTE | 2025-01-12 10:55 | DVHPN2 ---
Progress Note - Dictate Date Seen: Jan 12, 2025 Medical Necessity Reason Pt with a Central, PICC or Fol: Yes The following are medically ne: Reed Catheter Reason for reed catheter: Strict I&O Subjective Mr. Perry is a 24 years old right-handed gentleman with a history of hypertension, pain syndrome, substance abuse, he was admitted to the [facility] on 12/17/2024 for new onset seizure activity. I have seen and examined the patient, discussed with his nurses. His mother is in the room. He is not responsive to strong pain stimuli He stopped post tracheostomy (01/12/2025) Fentanyl 225 mcg/hour, Versed 8 mg/hour, propofol 50 mcg/minute, FiO2: 40% Blood culture, 12/25/2024: No growth Sputum culture, 12/25/2024: Staphylococcus aureus Urine culture, 01/04/2025: Urinalysis, 12/17/2024: Unremarkable Urine drug screening, 12/17/2024: Benzo Valproic acid, 12/17/2024: 22.1 Plasma alcohol, 12/17/2024: <3 ABG, 12/18/2024: Respiratory acidosis, 12/20/2024: Acidosis, 12/22/2024: Hypoxia, 12/24/2024: Hypoxia, carbon dioxide retention, 12/25/2024: Hypoxia, carbon dioxide retention, 12/29/2024: Hypoxia, carbon dioxide retention WBC/HB/PLT/MCV, 12/20/2024: 8/12.4/233/90.4 CMP 12/18/2024: Unremarkable TBI/AST/ALT/AP, 12/20/2024: 0.7/44/45/143 EEG, 12/19/2019 10/26/24 13:15: Normal EEG, 12/23/2024: Moderately abnormal EEG Bronchoscopy 01/12/25: There were copious blood tinged secretions in the airways bilaterally Chest x-ray 12/18/2024: Endotracheal tube 0.7 cm above the rogers. Nasogastric tube in the proximal stomach Chest x-ray, 12/27/2024: 1. Stable mild multifocal bilateral pulmonary airspace disease, most notably at the lung bases. 2. Lines and tubes unchanged Chest x-ray, 12/29/2024: 1. Stable cardiomegaly, bilateral pleural effusions and moderate diffuse increased prominence of the pulmonary vasculature. 2. Right basilar pulmonary airspace disease. 3. Interval retraction of endotracheal tube as above. Remaining lines and tubes unchanged Chest x-ray, : Lines and tubes in satisfactory position. No significant interval change. CT head, 12/17/2024: No evidence of acute intracranial abnormality. If symptoms persist, consider MRI for further evaluation MR head, 12/21/2024: No evidence of acute infarction, intracranial hemorrhage, mass effect or hydrocephalus. No evidence of mesial temporal sclerosis. Pansinusitis. Prominent bilateral cervical lymph nodes. This can be further evaluated with ultrasound vital signs Vital Sign Date Time Temp Pulse Resp B/P (MAP) Pulse Ox O2 Delivery O2 Flow Rate FiO2 01/12/25 10:15 69 20 132/79 (96) 94 40 01/12/25 08:00 Mechanical Ventilator+ 01/12/25 06:00 98.4 98.4 Total Intake and Output 01/11/25 01/11/25 01/12/25 15:00 23:00 07:00 Intake Total 1326.2 ml 1211.0 ml 844.4 ml Output Total 2675 ml 1200 ml Balance 1326.2 ml -1464.0 ml -355.6 ml medications Current Medications Medications Dose Ordered Sig/Rick Route Start Time Stop Time Status Last Admin Dose Admin Lorazepam 1 mg Q5MINP PRN IV 12/18/24 11:00 12/23/24 08:43 1 MG Midazolam HCl 50 ml @ 1 mls/hr Q24H IV 12/18/24 21:15 01/12/25 09:29 8 MLS/HR Diagnostic Test (Pha) 1 strip Q6HR 12/19/24 12:00 01/12/25 06:11 1 STRIP Insulin Human Regular FOLLOW SLIDING SCALE Q6HR SC 12/19/24 12:00 Dextrose 50 ml UD IV 12/19/24 10:00 12/22/24 23:25 50 ML Albuterol 2.5 mg Q6HR NEB 12/19/24 18:00 01/12/25 06:11 2.5 MG Ipratropium [place] 0.5 mg Q6HR NEB 12/19/24 18:00 01/12/25 06:11 0.5 MG Pantoprazole Sodium 40 mg DAILY IV 12/21/24 10:00 01/12/25 09:54 40 MG Polyethylene Glycol 17 gm DAILY PO 12/22/24 10:00 Hold 01/07/25 09:44 17 GM Docusate Sodium 100 mg BID GT 12/22/24 10:00 01/11/25 21:29 100 MG Thiamine HCl 100 mg DAILY IV 12/24/24 10:00 01/12/25 09:44 100 MG Folic Acid 1 mg/ Dextrose 50.2 ml @ 200.8 mls/ hr DAILY INJ 12/24/24 10:00 01/11/25 09:31 200.8 MLS/HR Sodium Chloride 10 ml QSHIFT@10,22 IV 12/24/24 22:00 01/12/25 09:30 10 ML Enteral Nutritional Formula 1,000 ml 40ML/HR GT 12/27/24 16:45 01/09/25 21:00 1,000 ML Lactulose 15 ml DAILY PO 12/28/24 10:00 Hold 01/09/25 09:17 15 ML Furosemide 40 mg DAILY IV 12/30/24 10:00 01/12/25 09:49 40 MG Acetaminophen 625 mg Q8HPRN PRN GT 12/31/24 16:00 01/05/25 00:32 625 MG Propofol 100 ml @ 4.11 mls/hr Q24H IV 01/05/25 15:45 01/12/25 05:47 41.1 MLS/HR Fentanyl Citrate 250 ml @ 2.5 mls/hr Q24H IV 01/07/25 19:00 01/11/25 18:04 22.5 MLS/HR Vancomycin HCl 0 ml @ 0 mls/hr UD IV 01/08/25 15:15 Enoxaparin Sodium 40 mg Q12HP SC 01/10/25 22:00 01/12/25 10:06 40 MG Vancomycin HCl 200 ml @ 200 mls/hr Q6H IV 01/10/25 20:00 01/12/25 09:10 200 MLS/HR Levetiracetam 200 mg/Sodium Chloride 52 ml @ 208 mls/hr BID IV 01/11/25 22:00 01/12/25 10:46 208 MLS/HR Magnesium Sulfate/ Dextrose 100 ml @ 100 mls/hr Q1HR IV 01/12/25 10:00 01/12/25 11:59 objective The patient is well-nourished and well-developed with no distress. The patient is intubated MENTAL STATUS: Subjective CRANIAL NERVES: Pupils are equal, round and nonreactive, small. There are corneal reflexes and doll's eyes phenomenon. No signs of facial weakness. Gagging or coughing reflexes not examined SENSATION: Non-responses to pain stimuli. MOTOR: Normal tone in the upper and lower extremity. Normal muscle bulk. No fasciculations. No spontaneous movement in the arms and the legs REFLEXES: Deep tendon reflexes are symmetrical. No pathological reflexes. CEREBELLAR/COORDINATION: Deferred GAIT/STATION: deferred laboratory and microbiology Laboratory Tests 01/12/25 03:12 Test 01/12/25 03:12 Range/Units Serum Glucose 81 74-106 mg/dL Problem List Come Metabolic encephalopathy Hypoxic encephalopathy Toxic encephalopathy ? Status epileptics New onset seizure, status epileptics Likely secondary to substance abuse Rule out epileptic seizure or other acute symptomatic seizure The activity witnessed on 12/23/2024 was not typical to seizure, likely myoclonus Substance abuse ? Depression Respiratory failure/hypoxia, status post tracheostomy Pneumonia Assessment/Plan Monitoring Supportive treatment Telemetry Follow-up lab ICU care Stabilize vitals Respiratory support/vent management Ativan for seizure breakthrough Cut down Keppra to 500 mg IV b.i.d. , he may not need preventive seizure treatment Need history from him directly Consider tele psych consultation Re: The previous substance abuse later Tracheostomy on 01/12/2025 More recommendation per clinical course This medical document was created using an electronic medical record system with [employer] computerized dictation system. Although this document has been carefully reviewed, there may still be some phonetic and typographical errors. These areas are purely typographical due to imperfections of the software programs, and do not reflect any compromise in the patient's medical care. Prognosis guarded Dietary Evaluation Review Comments: 1) Continue TPN to meet at least 75% estimated needs 2) TF Vital High Protein @ 60ml/hr(goal) with current rate of propofol. TF at goal volume together with propofol provides 2471 kcal (100% eenrgy needs) & 126 gm protein (100% protein needs) 3) Monitor TPN tolerance, lab values, I/O, wt trend Expected Outcomes/Goals: To meet >75% estimated needs Fu 2-3 days Plan discussed with: BONNY Biggs MD Jan 12, 2025 10:54
[2025-01-12] MEDS: MAGNESIUM SULFATE 1GM/100ML 100 ML IV SCH (11:49)
[2025-01-12] MEDS ORDERED: ACETAMINOPHEN 650 MG RECT SUPP PR PRN (14:45)
--- NOTE | 2025-01-12 16:32 | DVHPNRES ---
Progress Note Date Seen: Jan 12, 2025 Resident Creating Document: AC GRIFFITH RESIDENT Medical Necessity Reason Pt with a Central, PICC or Fol: Yes The following are medically ne: PICC Line, Reed Catheter Reason for reed catheter: Strict I&O Subjective Review of Systems Mr. Lynn is a 24-year-old male with hypertension, chronic pain, and substance abuse disorder was admitted after new-onset seizures, reportedly due to heavy nitrous oxide use. He was intubated on 12/18/2024 following status epilepticus and placed on multiple sedatives including propofol, Versed, and fentanyl. A right IJ central line and OG tube were placed with difficulty due to body habitus. He was transferred to the ICU and maintained on deep sedation. Despite initial seizure control, breakthrough seizures occurred on 12/23, prompting resumption of Versed. Vancomycin and Zosyn were started for fever and leukocytosis. Sedation vacations were attempted intermittently with variable success. Pulmonary status fluctuated, requiring FiO2 up to 100% and PEEP adjustments. Bronchoscopy was performed on 12/26. Due to prolonged intubation (day 12 by 12/29), tracheostomy was considered. Lovenox was initiated for suspected thromboembolism, later discontinued due to ruled out PE. Oxygenation improved gradually, and FiO2 was reduced to 30% by 01/01. Sedation vacation on 01/04 showed no seizures and appropriate command following. Tracheostomy was deferred on 01/06 due to instability and FiO2 of 60%.FiO2 down to 50% on 01/07. Today, the patient was seen and examined at the bedside. Due to the patients clinical status, review of systems could not be obtained. The patient remains on mechanical ventilation with settings: RR 20, VT 550, FiO? 40%, PEEP 5. Patient temperature is getting high today T-max is 99.9 until now, Acetaminophen suppository if temperature more than 100.4 . Postoperative Day 0, status post tracheostomy with size 8 tube placement. Going up on sedation due to patient is awake. Replenished Mag and potassium, monitor lab. From tomorrow we will try to go down on sedation. Place NG tube tomorrow and start feeds. Following up with [facility] for possible transfer. Changes from previous H/P or p: No Changes Objective vital signs Vital Sign Date Time Temp Pulse Resp B/P (MAP) Pulse Ox O2 Delivery O2 Flow Rate FiO2 7/30/25 16:07 88 20 120/68 (85) 93 40 01/12/25 16:00 Mechanical Ventilator+ 01/12/25 11:30 99.9 99.9 Total Intake and Output 01/11/25 01/11/25 01/12/25 15:00 23:00 07:00 Intake Total 1326.2 ml 1211.0 ml 844.4 ml Output Total 2675 ml 1200 ml Balance 1326.2 ml -1464.0 ml -355.6 ml medications Current Medications Medications Dose Ordered Sig/Rick Route Start Time Stop Time Status Last Admin Dose Admin Lorazepam 1 mg Q5MINP PRN IV 12/18/24 11:00 12/23/24 08:43 1 MG Midazolam HCl 50 ml @ 1 mls/hr Q24H IV 12/18/24 21:15 01/12/25 14:40 9 MLS/HR Diagnostic Test (Pha) 1 strip Q6HR 12/19/24 12:00 01/12/25 12:14 1 STRIP Insulin Human Regular FOLLOW SLIDING SCALE Q6HR SC 12/19/24 12:00 Dextrose 50 ml UD IV 12/19/24 10:00 12/22/24 23:25 50 ML Albuterol 2.5 mg Q6HR NEB 12/19/24 18:00 01/12/25 12:18 2.5 MG Ipratropium [place] 0.5 mg Q6HR NEB 12/19/24 18:00 01/12/25 12:18 0.5 MG Pantoprazole Sodium 40 mg DAILY IV 12/21/24 10:00 01/12/25 09:54 40 MG Polyethylene Glycol 17 gm DAILY PO 12/22/24 10:00 Hold 01/07/25 09:44 17 GM Docusate Sodium 100 mg BID GT 12/22/24 10:00 01/11/25 21:29 100 MG Thiamine HCl 100 mg DAILY IV 12/24/24 10:00 01/12/25 09:44 100 MG Folic Acid 1 mg/ Dextrose 50.2 ml @ 200.8 mls/ hr DAILY INJ 12/24/24 10:00 01/12/25 11:22 200.8 MLS/HR Sodium Chloride 10 ml QSHIFT@10,22 IV 12/24/24 22:00 01/12/25 09:30 10 ML Enteral Nutritional Formula 1,000 ml 40ML/HR GT 12/27/24 16:45 01/09/25 21:00 1,000 ML Lactulose 15 ml DAILY PO 12/28/24 10:00 Hold 01/09/25 09:17 15 ML Furosemide 40 mg DAILY IV 12/30/24 10:00 01/12/25 09:49 40 MG Acetaminophen 625 mg Q8HPRN PRN GT 12/31/24 16:00 01/05/25 00:32 625 MG Fentanyl Citrate 250 ml @ 2.5 mls/hr Q24H IV 01/07/25 19:00 01/12/25 14:21 30 MLS/HR Vancomycin HCl 0 ml @ 0 mls/hr UD IV 01/08/25 15:15 Enoxaparin Sodium 40 mg Q12HP SC 01/10/25 22:00 01/12/25 10:06 40 MG Vancomycin HCl 200 ml @ 200 mls/hr Q6H IV 01/10/25 20:00 01/12/25 14:17 200 MLS/HR Levetiracetam 200 mg/Sodium Chloride 52 ml @ 208 mls/hr BID IV 01/11/25 22:00 01/12/25 10:46 208 MLS/HR Acetaminophen 650 mg Q8HP PRN IN 01/12/25 14:45 Hold Propofol 100 ml @ 4.038 mls/ hr Q24H IV 01/12/25 16:15 Examination Pt is lying on bed, RASS -3 General Appearance: Sedated and mechanically ventilated obese adult HEENT: Atraumatic, Mucous membranes moist/pink, tracheostomy tube in place Respiratory: Coarse bilateral breath sounds, improved, vent settings RR 20, VT 550, FiO? 40%, PEEP 5 Cardiovascular: Regular rate, Normal S1, Normal S2, No murmurs Abdominal: Active bowel sounds, Soft, no distention, Extremities: No edema, Normal pulses, No tenderness/swelling Skin: No Significant rash, except past surgical scars Neuro: Reactive pupils, gag reflex intact Psych/Mental Status: Mental status NL, Mood NL Nurse was there as reading teacher during examination laboratory and microbiology Laboratory Tests 01/12/25 03:12 Test 01/12/25 03:12 Range/Units Serum Glucose 81 74-106 mg/dL Microbiology Date/Time Source Procedure Growth Status 01/04/25 18:35 Blood Blood Culture - Final NO GROWTH AFTER 5 DAYS OF INCUBATION. Complete 01/04/25 18:15 Sputum Gram Stain - Final Complete 01/04/25 18:15 Respiratory Culture - Final Staphylococcus aureus Complete 01/04/25 17:00 Urine - [place] Urine Culture - Final Complete 12/25/24 15:20 Catheter Site Aerobic Culture - Final Staphylococcus epidermidis Complete Labs and/or images reviewed: Labs reviewed by me, Image(s) reviewed by me Problem List/Assessment/Plan Problem List/Assessment/Plan Neurology # Acute toxic/metabolic encephalopathy with new-onset or breakthrough generalized seizures, likely multifactorial: # Medication nonadherence (valproic acid level 22.1, subtherapeutic) # Possible alcohol withdrawal (CIWA not assessable due to sedation) # Substance abuse (notably nitrous oxide) - Current sedation:Versed 8 mcg/kg/min, Fentanyl 200 mcg/hr, Propofol 50 mcg/kg/min - Seizure management as below - Versed - IV levetiracetam 1500 mg BID - IV lorazepam PRN - Last seizure on 12/23/2024 - EEG: Largely unremarkable - Head CT & Brain MRI: No acute findings; MRI showed pansinusitis and prominent cervical lymphadenopathy - Supportive care: Received IV banana bags x2, thiamine, and folic acid - Neurology is on board for ongoing evaluation - Going up on sedation due to patient is awake. Replenished Mag and potassium, monitor lab. From tomorrow we will try to go down on sedation. Cardiovascular # HTN # Sepsis secondary to aspiration pneumonia - Stopped IV NS - Abx Vancomycin Respiratory # Acute hypoxic respiratory failure secondary to status epilepticus, intubated on 12/18/2024. # Probable aspiration pneumonia with MSSA isolated in both blood and respiratory cultures. # Pulmonary edema improving. # Bilateral pleural effusions noted on imaging. # Pulmonary embolism ruled out (CT angiography ordered; no DVT on Doppler). - On mechanical ventilation: VC-AC mode, RR 20, TV 550 mL, PEEP 5, FiO? 40%. Through size 8 tracheostomy tube which placed today - Receiving ipratropium and albuterol nebulizers. - CXR: Hypoinflated lungs with bibasilar atelectasis; 12/29 CXR showed stable cardiomegaly, bilateral effusions, and right basilar airspace disease. - Antibiotics: IV Zosyn started 12/21, discontinued 01/09 - IV Vancomycin started 12/23, stopped 12/24, resumed 12/27 - IV Lasix 40 mg daily for volume management. - Therapeutic Lovenox initiated, later discontinued. - Repeat blood and sputum cultures confirmed MSSA. - Postoperative Day 0, status post tracheostomy with size 8 tube placement. GI # Transaminitis-improving # Peptic ulcer prophylaxis # Vitamin B12 deficiency # Constipation, likely slow transit, relieved by lactose,MiraLax& Colace -Pantoprazole 40 mg IV daily - negative hepatitis-B and hepatitis-C - repleted with 1000 mcg B12 - lactulose daily - KUB: Nonobstructive bowel gas pattern. Moderate stool burden. - diet is Vital AF 40 mL held today for sx # morbid obesity with a BMI 50.3 -nutritional counseling after extubation # Reed catheter changed on 01/04/2025 Nephrology # hypernatremia, now improved # hypokalemia, now improved # hypomagnesemia #? Rhabdomyolysis-improving - serum CK 2159 on 12/23/2024, 1263 on 12/24/2024 - monitor -keep potassium above 4 and magnesium above 2 -replete as needed, continuously monitor lab -avoid nephrotoxic agents ID # aspiration pneumonia # sepsis due to above # right IJ catheter tip (placed on 12/18/2024, removed on 12/24/2024) culture growing staph epidermidis - pancultures - IV Zosyn discontinued on 01/09 - IV vancomycin - Tylenol as needed for fever - s/p bronchoscopy x 2 - repeat blood cultures, repeat sputum cultures, showing staph aureus Hem/onc # microcytic anemia, mild - monitor Psychiatry # substance use disorder - we will consider Psychiatry consult once patient is extubated DVT prophylaxis: On Lovenox 40 mg b.i.d. Nutrition: Vital AF 40 mL held for now, we will place NG tomorrow and start feeds again Following up with [facility] for possible transfer. Lines Right PICC placed on 12/24/24 Drips - Versed - fentanyl - propofol Intubated on 12/18/2024 Bronchoscopy on 12/26/24 Repeat bronchoscopy on 12/28/2024 Reed on 01/04/2025 Critical care time 81 minutes excluding procedure. Code status discussed greater than 29 minutes: Full CODE STATUS. Plan discussed with Dr. Iqbal, and nurse Detailed discussion held with patient's mother Ms. Sabillon at bedside., addressed all concerns. Plan discussed with: Other (Patient's mother and RN) My Orders My Orders Orders - AC GRIFFITH Procedure Category Date Status Time Acetaminophen PHA 01/12/25 In Process Suppository (Tylenol 14:45 Dietary Evaluation Review Comments: 1) Continue TPN to meet at least 75% estimated needs 2) TF Vital High Protein @ 60ml/hr(goal) with current rate of propofol. TF at goal volume together with propofol provides 2471 kcal (100% eenrgy needs) & 126 gm protein (100% protein needs) 3) Monitor TPN tolerance, lab values, I/O, wt trend Expected Outcomes/Goals: To meet >75% estimated needs Fu 2-3 days Date of Service: Jan 13, 2025 Billing Provider: ANTHONY IQBAL MD Common Visit Codes: 96746-OGVJORWA CARE 30-74 MIN, 84797-WHLCCTQO CARE-EACH +30MIN AC GRIFFITH Jan 12, 2025 16:32 ANTHONY IQBAL MD Jan 13, 2025 11:45
[2025-01-12] MEDS: PROPOFOL 100 ML IV SCH (17:05)
[2025-01-13] VITALS (108 sets, daily range): BP systolic 100–161; BP diastolic 46–98; PULSE 59–102; RESP 13–24; TEMP 98.5–99.5; O2SAT 93–100
[2025-01-13 04:12] LABS: Hematocrit 32.0 % (41.0-53.0); Hemoglobin 11.2 g/dL (13.5-17.5); Mean Corpuscular Hemoglobin 30.4 pg (28.0-32.0); Mean Corpuscular Volume 87.1 fL (80.0-100.0); Nucleated Red Blood Cells % 0.1 %
[2025-01-13 04:30] LABS: Alanine Aminotransferase 34 U/L (7-40); Albumin 4.3 g/dL (3.2-4.8); Alkaline Phosphatase 125 U/L (46-116); Anion Gap 13 (5-15); BUN/Creatinine Ratio 36.4 (10.0-20.0); Blood Urea Nitrogen 12 mg/dL (9-23); Calcium 9.6 mg/dL (8.7-10.4); Carbon Dioxide 22 mmol/L (20-31); Chloride 103 mmol/L (98-107); Glucose 92 mg/dL (74-106); Magnesium 1.8 mg/dL (1.6-2.6); Potassium 3.5 mmol/L (3.5-5.1); Sodium 138 mmol/L (136-145); Total Protein 7.3 g/dL (5.7-8.2)
[2025-01-13 04:31] LABS: Bilirubin, Total 0.4 mg/dL (0.2-1.0)
--- NOTE | 2025-01-13 05:14 | DVH ---
CHEST RADIOGRAPH Indication: f/u Technique: Single frontal view of the chest was obtained Comparison: XY CHEST PORTABLE on DOS: 01/12/25 FINDINGS: Lines and Tubes: Tracheostomy tube is unchanged. Right PICC terminates in the superior vena cava. Lungs: Bilateral airspace disease is similar to the prior study. Pleura: No effusion. No pneumothorax. Cardiomediastinal contours: Stable cardiomegaly. Bones: No acute osseous abnormality. IMPRESSION: 1. No significant interval change since prior chest radiograph dated 01/12/2025.
[2025-01-13] MEDS: MAGNESIUM SULFATE 1GM/100ML 100 ML IV ONE ×2 (09:17→16:49)
--- NOTE | 2025-01-13 09:56 | DVHPN2 ---
Progress Note - Dictate Date Seen: Jan 13, 2025 Medical Necessity Reason Pt with a Central, PICC or Fol: Yes The following are medically ne: PICC Line, Reed Catheter Reason for reed catheter: Strict I&O Subjective Mr. Perry is a 24 years old right-handed gentleman with a history of hypertension, pain syndrome, substance abuse, he was admitted to the [facility] on 12/17/2024 for new onset seizure activity. I have seen and examined the patient, discussed with his nurses. He is responsive to strong pain stimuli With less sedation, the patient tried to pull the tracheostomy tube He was fully tracked his mother yesterday He stopped post tracheostomy (01/12/2025) Fentanyl 275 mcg/hour, Versed 9 mg/hour, propofol 30 mcg/minute Blood culture, 12/25/2024: No growth Sputum culture, 12/25/2024: Staphylococcus aureus Urine culture, 01/04/2025: Urinalysis, 12/17/2024: Unremarkable Urine drug screening, 12/17/2024: Benzo Valproic acid, 12/17/2024: 22.1 Plasma alcohol, 12/17/2024: <3 ABG, 12/18/2024: Respiratory acidosis, 12/20/2024: Acidosis, 12/22/2024: Hypoxia, 12/24/2024: Hypoxia, carbon dioxide retention, 12/25/2024: Hypoxia, carbon dioxide retention, 12/29/2024: Hypoxia, carbon dioxide retention WBC/HB/PLT/MCV, 12/20/2024: 8/12.4/233/90.4 CMP 12/18/2024: Unremarkable TBI/AST/ALT/AP, 12/20/2024: 0.7/44/45/143 EEG, 12/19/2019 10/26/24 13:15: Normal EEG, 12/23/2024: Moderately abnormal EEG Bronchoscopy 01/12/25: There were copious blood tinged secretions in the airways bilaterally Chest x-ray 12/18/2024: Endotracheal tube 0.7 cm above the rogers. Nasogastric tube in the proximal stomach Chest x-ray, 12/27/2024: 1. Stable mild multifocal bilateral pulmonary airspace disease, most notably at the lung bases. 2. Lines and tubes unchanged Chest x-ray, 12/29/2024: 1. Stable cardiomegaly, bilateral pleural effusions and moderate diffuse increased prominence of the pulmonary vasculature. 2. Right basilar pulmonary airspace disease. 3. Interval retraction of endotracheal tube as above. Remaining lines and tubes unchanged Chest x-ray, : Lines and tubes in satisfactory position. No significant interval change. CT head, 12/17/2024: No evidence of acute intracranial abnormality. If symptoms persist, consider MRI for further evaluation MR head, 12/21/2024: No evidence of acute infarction, intracranial hemorrhage, mass effect or hydrocephalus. No evidence of mesial temporal sclerosis. Pansinusitis. Prominent bilateral cervical lymph nodes. This can be further evaluated with ultrasound vital signs Vital Sign Date Time Temp Pulse Resp B/P (MAP) Pulse Ox O2 Delivery O2 Flow Rate FiO2 01/13/25 09:45 133/81 01/13/25 08:00 89 01/13/25 08:00 20 97 Mechanical Ventilator+ 40 40 01/13/25 04:00 99.5 99.5 Total Intake and Output 01/12/25 01/12/25 01/13/25 15:00 23:00 07:00 Intake Total 663.3 ml 1071.002 ml 679.824 ml Output Total 3775 ml 1250 ml Balance 663.3 ml -2703.998 ml -570.176 ml medications Current Medications Medications Dose Ordered Sig/Rick Route Start Time Stop Time Status Last Admin Dose Admin Lorazepam 1 mg Q5MINP PRN IV 12/18/24 11:00 12/23/24 08:43 1 MG Midazolam HCl 50 ml @ 1 mls/hr Q24H IV 12/18/24 21:15 01/13/25 06:44 10 MLS/HR Diagnostic Test (Pha) 1 strip Q6HR 12/19/24 12:00 01/13/25 05:29 1 STRIP Insulin Human Regular FOLLOW SLIDING SCALE Q6HR SC 12/19/24 12:00 01/12/25 18:29 2 UNITS Dextrose 50 ml UD IV 12/19/24 10:00 12/22/24 23:25 50 ML Albuterol 2.5 mg Q6HR NEB 12/19/24 18:00 01/13/25 06:29 2.5 MG Ipratropium [place] 0.5 mg Q6HR NEB 12/19/24 18:00 01/13/25 06:29 0.5 MG Pantoprazole Sodium 40 mg DAILY IV 12/21/24 10:00 01/12/25 09:54 40 MG Polyethylene Glycol 17 gm DAILY PO 12/22/24 10:00 Hold 01/07/25 09:44 17 GM Docusate Sodium 100 mg BID GT 12/22/24 10:00 01/11/25 21:29 100 MG Thiamine HCl 100 mg DAILY IV 12/24/24 10:00 01/12/25 09:44 100 MG Folic Acid 1 mg/ Dextrose 50.2 ml @ 200.8 mls/ hr DAILY INJ 12/24/24 10:00 01/12/25 11:22 200.8 MLS/HR Sodium Chloride 10 ml QSHIFT@10,22 IV 12/24/24 22:00 01/12/25 22:02 10 ML Enteral Nutritional Formula 1,000 ml 40ML/HR GT 12/27/24 16:45 01/09/25 21:00 1,000 ML Lactulose 15 ml DAILY PO 12/28/24 10:00 Hold 01/09/25 09:17 15 ML Furosemide 40 mg DAILY IV 12/30/24 10:00 01/12/25 09:49 40 MG Acetaminophen 625 mg Q8HPRN PRN GT 12/31/24 16:00 01/05/25 00:32 625 MG Fentanyl Citrate 250 ml @ 2.5 mls/hr Q24H IV 01/07/25 19:00 01/13/25 06:14 30 MLS/HR Vancomycin HCl 0 ml @ 0 mls/hr UD IV 01/08/25 15:15 Enoxaparin Sodium 40 mg Q12HP SC 01/10/25 22:00 01/12/25 21:32 40 MG Vancomycin HCl 200 ml @ 200 mls/hr Q6H IV 01/10/25 20:00 01/13/25 09:08 200 MLS/HR Levetiracetam 200 mg/Sodium Chloride 52 ml @ 208 mls/hr BID IV 01/11/25 22:00 01/12/25 22:12 208 MLS/HR Acetaminophen 650 mg Q8HP PRN GA 01/12/25 14:45 Hold Propofol 100 ml @ 4.038 mls/ hr Q24H IV 01/12/25 16:15 01/13/25 09:16 24.228 MLS/HR objective The patient is well-nourished and well-developed with no distress. The patient is intubated MENTAL STATUS: Subjective CRANIAL NERVES: Pupils are equal, round and reactive, small. There are corneal reflexes and spontaneous rolling eye movement with eyes open. No signs of facial weakness. Gagging or coughing reflexes not examined SENSATION: Non-responses to pain stimuli. MOTOR: Normal tone in the upper and lower extremity. Normal muscle bulk. No fasciculations. No spontaneous movement in the arms and the legs REFLEXES: Deep tendon reflexes are symmetrical. No pathological reflexes. CEREBELLAR/COORDINATION: Deferred GAIT/STATION: deferred laboratory and microbiology Laboratory Tests 01/13/25 03:46 Test 01/13/25 03:46 Range/Units Serum Glucose 92 74-106 mg/dL Problem List Come Metabolic encephalopathy Hypoxic encephalopathy Toxic encephalopathy ? Status epileptics New onset seizure, status epileptics Likely secondary to substance abuse Rule out epileptic seizure or other acute symptomatic seizure The activity witnessed on 12/23/2024 was not typical to seizure, likely myoclonus Substance abuse ? Depression Respiratory failure/hypoxia, status post tracheostomy Pneumonia Assessment/Plan Monitoring Supportive treatment Telemetry Follow-up lab ICU care Stabilize vitals Respiratory support/vent management Ativan for seizure breakthrough D/C Keppra to 500 mg IV b.i.d. tomorrow Need history from him directly Consider tele psych consultation Re: The previous substance abuse later Tracheostomy on 01/12/2025 More recommendation per clinical course This medical document was created using an electronic medical record system with [employer] computerized dictation system. Although this document has been carefully reviewed, there may still be some phonetic and typographical errors. These areas are purely typographical due to imperfections of the software programs, and do not reflect any compromise in the patient's medical care. Prognosis guarded Dietary Evaluation Review Comments: 1) Continue TPN to meet at least 75% estimated needs 2) TF Vital High Protein @ 60ml/hr(goal) with current rate of propofol. TF at goal volume together with propofol provides 2471 kcal (100% eenrgy needs) & 126 gm protein (100% protein needs) 3) Monitor TPN tolerance, lab values, I/O, wt trend Expected Outcomes/Goals: To meet >75% estimated needs Fu 2-3 days Plan discussed with: Other BONNY PEREZ MD Jan 13, 2025 09:56
[2025-01-13 12:43] LABS: Base Excess -0.2 mmol/L (-2.0-3.0)
--- NOTE | 2025-01-13 15:43 | DVHPN2 ---
Subjective Date Seen: Jan 13, 2025 Post op day Post op day: 1 Patient reports: Other (intubated sedated) Objective Vitals Vital Sign Date Time Temp Pulse Resp B/P (MAP) Pulse Ox O2 Delivery O2 Flow Rate FiO2 01/13/25 14:30 88 22 116/59 (78) 98 01/13/25 14:00 40 01/13/25 14:00 Mechanical Ventilator+ 01/13/25 12:00 98.5 98.5 Total Intake and Output 01/12/25 01/12/25 01/13/25 15:00 23:00 07:00 Intake Total 663.3 ml 1071.002 ml 744.024 ml Output Total 3775 ml 1250 ml Balance 663.3 ml -2703.998 ml -505.976 ml Medications Current Medications Medications Dose Ordered Sig/Rick Route Start Time Stop Time Status Last Admin Dose Admin Lorazepam 1 mg Q5MINP PRN IV 12/18/24 11:00 12/23/24 08:43 1 MG Midazolam HCl 50 ml @ 1 mls/hr Q24H IV 12/18/24 21:15 01/13/25 12:50 7 MLS/HR Diagnostic Test (Pha) 1 strip Q6HR 12/19/24 12:00 01/13/25 12:00 1 STRIP Insulin Human Regular FOLLOW SLIDING SCALE Q6HR SC 12/19/24 12:00 01/12/25 18:29 2 UNITS Dextrose 50 ml UD IV 12/19/24 10:00 12/22/24 23:25 50 ML Albuterol 2.5 mg Q6HR NEB 12/19/24 18:00 01/13/25 11:52 2.5 MG Ipratropium [place] 0.5 mg Q6HR NEB 12/19/24 18:00 01/13/25 11:52 0.5 MG Pantoprazole Sodium 40 mg DAILY IV 12/21/24 10:00 01/13/25 09:52 40 MG Polyethylene Glycol 17 gm DAILY PO 12/22/24 10:00 Hold 01/07/25 09:44 17 GM Docusate Sodium 100 mg BID GT 12/22/24 10:00 01/11/25 21:29 100 MG Thiamine HCl 100 mg DAILY IV 12/24/24 10:00 01/13/25 09:56 100 MG Folic Acid 1 mg/ Dextrose 50.2 ml @ 200.8 mls/ hr DAILY INJ 12/24/24 10:00 01/13/25 10:12 200.8 MLS/HR Sodium Chloride 10 ml QSHIFT@10,22 IV 12/24/24 22:00 01/13/25 09:57 10 ML Enteral Nutritional Formula 1,000 ml 40ML/HR GT 12/27/24 16:45 01/09/25 21:00 1,000 ML Lactulose 15 ml DAILY PO 12/28/24 10:00 Hold 01/09/25 09:17 15 ML Furosemide 40 mg DAILY IV 12/30/24 10:00 01/13/25 09:56 40 MG Acetaminophen 625 mg Q8HPRN PRN GT 12/31/24 16:00 01/05/25 00:32 625 MG Fentanyl Citrate 250 ml @ 2.5 mls/hr Q24H IV 01/07/25 19:00 01/13/25 06:14 30 MLS/HR Vancomycin HCl 0 ml @ 0 mls/hr UD IV 01/08/25 15:15 Enoxaparin Sodium 40 mg Q12HP SC 01/10/25 22:00 01/13/25 09:54 40 MG Vancomycin HCl 200 ml @ 200 mls/hr Q6H IV 01/10/25 20:00 01/13/25 14:43 200 MLS/HR Levetiracetam 200 mg/Sodium Chloride 52 ml @ 208 mls/hr BID IV 01/11/25 22:00 01/14/25 09:56 01/13/25 10:14 208 MLS/HR Acetaminophen 650 mg Q8HP PRN [place] 01/12/25 14:45 Hold Propofol 100 ml @ 4.038 mls/ hr Q24H IV 01/12/25 16:15 01/13/25 13:38 24.228 MLS/HR Potassium Chloride 100 ml @ 50 mls/hr Q2H IV 01/13/25 15:30 01/13/25 19:29 UNV General: Other (intubated, sedated) Labs and Microbiology Laboratory Tests 01/13/25 03:46 Test 01/13/25 03:46 Range/Units Serum Glucose 92 74-106 mg/dL Ass/Plan Labs and/or images reviewed: Labs reviewed by me, Image(s) reviewed by me Problem List Neurology # Acute toxic/metabolic encephalopathy with new-onset or breakthrough generalized seizures, likely multifactorial: # Medication nonadherence (valproic acid level 22.1, subtherapeutic) # Possible alcohol withdrawal (CIWA not assessable due to sedation) # Substance abuse (notably nitrous oxide) - Current sedation:Versed 8 mcg/kg/min, Fentanyl 200 mcg/hr, Propofol 50 mcg/kg/min - Seizure management as below - Versed - IV levetiracetam 1500 mg BID - IV lorazepam PRN - Last seizure on 12/23/2024 - EEG: Largely unremarkable - Head CT & Brain MRI: No acute findings; MRI showed pansinusitis and prominent cervical lymphadenopathy - Supportive care: Received IV banana bags x2, thiamine, and folic acid - Neurology is on board for ongoing evaluation - Going up on sedation due to patient is awake. Replenished Mag and potassium, monitor lab. From tomorrow we will try to go down on sedation. Cardiovascular # HTN # Sepsis secondary to aspiration pneumonia - Stopped IV NS - Abx Vancomycin Respiratory # Acute hypoxic respiratory failure secondary to status epilepticus, intubated on 12/18/2024. # Probable aspiration pneumonia with MSSA isolated in both blood and respiratory cultures. # Pulmonary edema improving. # Bilateral pleural effusions noted on imaging. # Pulmonary embolism ruled out (CT angiography ordered; no DVT on Doppler). - On mechanical ventilation: VC-AC mode, RR 20, TV 550 mL, PEEP 5, FiO? 40%. Through size 8 tracheostomy tube which placed today - Receiving ipratropium and albuterol nebulizers. - CXR: Hypoinflated lungs with bibasilar atelectasis; 12/29 CXR showed stable cardiomegaly, bilateral effusions, and right basilar airspace disease. - Antibiotics: IV Zosyn started 12/21, discontinued 01/09 - IV Vancomycin started 12/23, stopped 12/24, resumed 12/27 - IV Lasix 40 mg daily for volume management. - Therapeutic Lovenox initiated, later discontinued. - Repeat blood and sputum cultures confirmed MSSA. - Postoperative Day 0, status post tracheostomy with size 8 tube placement. GI # Transaminitis-improving # Peptic ulcer prophylaxis # Vitamin B12 deficiency # Constipation, likely slow transit, relieved by lactose,MiraLax& Colace -Pantoprazole 40 mg IV daily - negative hepatitis-B and hepatitis-C - repleted with 1000 mcg B12 - lactulose daily - KUB: Nonobstructive bowel gas pattern. Moderate stool burden. - diet is Vital AF 40 mL held today for sx # morbid obesity with a BMI 50.3 -nutritional counseling after extubation # [place] catheter changed on 01/04/2025 Nephrology # hypernatremia, now improved # hypokalemia, now improved # hypomagnesemia #? Rhabdomyolysis-improving - serum CK 2159 on 12/23/2024, 1263 on 12/24/2024 - monitor -keep potassium above 4 and magnesium above 2 -replete as needed, continuously monitor lab -avoid nephrotoxic agents ID # aspiration pneumonia # sepsis due to above # right IJ catheter tip (placed on 12/18/2024, removed on 12/24/2024) culture growing staph epidermidis - pancultures - IV Zosyn discontinued on 01/09 - IV vancomycin - Tylenol as needed for fever - s/p bronchoscopy x 2 - repeat blood cultures, repeat sputum cultures, showing staph aureus Hem/onc # microcytic anemia, mild - monitor Psychiatry # substance use disorder - we will consider Psychiatry consult once patient is extubated DVT prophylaxis: On Lovenox 40 mg b.i.d. Nutrition: Vital AF 40 mL held for now, we will place NG tomorrow and start feeds again Following up with [facility] for possible transfer. Lines Right PICC placed on 12/24/24 Drips - Versed - fentanyl - propofol Intubated on 12/18/2024 Bronchoscopy on 12/26/24 Repeat bronchoscopy on 12/28/2024 Gregg on 01/04/2025 Critical care time 81 minutes excluding procedure. Code status discussed greater than 29 minutes: Full CODE STATUS. Plan discussed with Dr. Tolentino, and nurse Detailed discussion held with patient's mother Ms. Sabillon at bedside., addressed all concerns. Assessment/Plan Status post tracheostomy, post-op day one. Trach clean, dry, and intact. Chest X-ray reviewed, discussed with Dr. Messina, will sign off, recall if needed. Prognosis: Guarded Plan discussed with Dr. messina Visit Coding Surgery Date of Service if different f: Jan 13, 2025 Billing Provider: OSMAN MESSINA MD Surgery Visit Codes: [id number] INP/OBS CARE(HIGH) AKI BURROUGHS NP Jan 13, 2025 15:43
[2025-01-13] MEDS: POTASSIUM CHL 20MEQ/100ML 100 ML IV SCH (16:51)
--- NOTE | 2025-01-13 17:23 | DVHPNRES ---
Progress Note Date Seen: Jan 13, 2025 Resident Creating Document: AC GRIFFITH RESIDENT Medical Necessity Reason Pt with a Central, PICC or Fol: Yes The following are medically ne: PICC Line, Reed Catheter Reason for reed catheter: Strict I&O Subjective Review of Systems Mr. Lynn is a 24-year-old male with hypertension, chronic pain, and substance abuse disorder was admitted after new-onset seizures, reportedly due to heavy nitrous oxide use. He was intubated on 12/18/2024 following status epilepticus and placed on multiple sedatives including propofol, Versed, and fentanyl. A right IJ central line and OG tube were placed with difficulty due to body habitus. He was transferred to the ICU and maintained on deep sedation. Today, the patient was seen and examined at the bedside. Due to the patients clinical status, review of systems could not be obtained. The patient remains on mechanical ventilation with settings: RR 20, VT 550, FiO? 40%, PEEP 5. T-max today's 99.5. Coming down on sedation today, We will place NG tube today and start feedings. Postoperative day 1 status post tracheostomy tube placement. Correcting electrolytes. Objective vital signs Vital Sign Date Time Temp Pulse Resp B/P (MAP) Pulse Ox O2 Delivery O2 Flow Rate FiO2 01/13/25 16:58 110/52 01/13/25 15:57 72 20 97 40 01/13/25 14:00 Mechanical Ventilator+ 01/13/25 12:00 98.5 98.5 Total Intake and Output 01/12/25 01/12/25 01/13/25 15:00 23:00 07:00 Intake Total 663.3 ml 1071.002 ml 744.024 ml Output Total 3775 ml 1250 ml Balance 663.3 ml -2703.998 ml -505.976 ml medications Current Medications Medications Dose Ordered Sig/Rick Route Start Time Stop Time Status Last Admin Dose Admin Lorazepam 1 mg Q5MINP PRN IV 12/18/24 11:00 12/23/24 08:43 1 MG Midazolam HCl 50 ml @ 1 mls/hr Q24H IV 12/18/24 21:15 01/13/25 12:50 7 MLS/HR Diagnostic Test (Pha) 1 strip Q6HR 12/19/24 12:00 01/13/25 12:00 1 STRIP Insulin Human Regular FOLLOW SLIDING SCALE Q6HR SC 12/19/24 12:00 01/12/25 18:29 2 UNITS Dextrose 50 ml UD IV 12/19/24 10:00 12/22/24 23:25 50 ML Albuterol 2.5 mg Q6HR NEB 12/19/24 18:00 01/13/25 11:52 2.5 MG Ipratropium [place] 0.5 mg Q6HR NEB 12/19/24 18:00 01/13/25 11:52 0.5 MG Pantoprazole Sodium 40 mg DAILY IV 12/21/24 10:00 01/13/25 09:52 40 MG Polyethylene Glycol 17 gm DAILY PO 12/22/24 10:00 Hold 01/07/25 09:44 17 GM Docusate Sodium 100 mg BID GT 12/22/24 10:00 01/11/25 21:29 100 MG Thiamine HCl 100 mg DAILY IV 12/24/24 10:00 01/13/25 09:56 100 MG Folic Acid 1 mg/ Dextrose 50.2 ml @ 200.8 mls/ hr DAILY INJ 12/24/24 10:00 01/13/25 10:12 200.8 MLS/HR Sodium Chloride 10 ml QSHIFT@10,22 IV 12/24/24 22:00 01/13/25 09:57 10 ML Enteral Nutritional Formula 1,000 ml 40ML/HR GT 12/27/24 16:45 01/09/25 21:00 1,000 ML Lactulose 15 ml DAILY PO 12/28/24 10:00 Hold 01/09/25 09:17 15 ML Furosemide 40 mg DAILY IV 12/30/24 10:00 01/13/25 09:56 40 MG Acetaminophen 625 mg Q8HPRN PRN GT 12/31/24 16:00 01/05/25 00:32 625 MG Fentanyl Citrate 250 ml @ 2.5 mls/hr Q24H IV 01/07/25 19:00 01/13/25 16:58 20 MLS/HR Vancomycin HCl 0 ml @ 0 mls/hr UD IV 01/08/25 15:15 Enoxaparin Sodium 40 mg Q12HP SC 01/10/25 22:00 01/13/25 09:54 40 MG Vancomycin HCl 200 ml @ 200 mls/hr Q6H IV 01/10/25 20:00 01/13/25 14:43 200 MLS/HR Levetiracetam 200 mg/Sodium Chloride 52 ml @ 208 mls/hr BID IV 01/11/25 22:00 01/14/25 09:56 01/13/25 10:14 208 MLS/HR Acetaminophen 650 mg Q8HP PRN [place] 01/12/25 14:45 Hold Propofol 100 ml @ 4.038 mls/ hr Q24H IV 01/12/25 16:15 01/13/25 16:56 24.228 MLS/HR Potassium Chloride 100 ml @ 50 mls/hr Q2H IV 01/13/25 15:30 01/13/25 19:29 01/13/25 16:51 50 MLS/HR Examination Pt is lying on bed, RASS -2 General Appearance: Sedated and mechanically ventilated obese adult HEENT: Atraumatic, Mucous membranes moist/pink, tracheostomy tube in place Respiratory: Coarse bilateral breath sounds, improved, vent settings RR 20, VT 550, FiO? 40%, PEEP 5 Cardiovascular: Regular rate, Normal S1, Normal S2, No murmurs Abdominal: Active bowel sounds, Soft, no distention, Extremities: No edema, Normal pulses, No tenderness/swelling Skin: No Significant rash, except past surgical scars Neuro: Reactive pupils, gag reflex intact Psych/Mental Status: Mental status NL, Mood NL Nurse was there as acct exec during examination laboratory and microbiology Laboratory Tests 01/13/25 03:46 Test 01/13/25 03:46 Range/Units Serum Glucose 92 74-106 mg/dL Microbiology Date/Time Source Procedure Growth Status 01/04/25 18:35 Blood Blood Culture - Final NO GROWTH AFTER 5 DAYS OF INCUBATION. Complete 01/04/25 18:15 Sputum Gram Stain - Final Complete 01/04/25 18:15 Respiratory Culture - Final Staphylococcus aureus Complete 01/04/25 17:00 Urine - [place] Urine Culture - Final Complete 12/25/24 15:20 Catheter Site Aerobic Culture - Final Staphylococcus epidermidis Complete Labs and/or images reviewed: Labs reviewed by me, Image(s) reviewed by me Problem List/Assessment/Plan Problem List/Assessment/Plan Neurology # Acute toxic/metabolic encephalopathy with new-onset or breakthrough generalized seizures, likely multifactorial: # Medication nonadherence (valproic acid level 22.1, subtherapeutic) # Possible alcohol withdrawal (CIWA not assessable due to sedation) # Substance abuse (notably nitrous oxide) - Current sedation:Versed 8 mcg/kg/min, Fentanyl 200 mcg/hr, Propofol 50 mcg/kg/min-coming down from sedation - Seizure management as below - Versed - IV levetiracetam 1500 mg BID - IV lorazepam PRN - Last seizure on 12/23/2024 - EEG: Largely unremarkable - Head CT & Brain MRI: No acute findings; MRI showed pansinusitis and prominent cervical lymphadenopathy - Supportive care: Received IV banana bags x2, thiamine, and folic acid - Neurology is on board for ongoing evaluation Cardiovascular # HTN # Sepsis secondary to aspiration pneumonia - Stopped IV NS - Abx Vancomycin Respiratory # Acute hypoxic respiratory failure secondary to status epilepticus, intubated on 12/18/2024. # Probable aspiration pneumonia with MSSA isolated in both blood and respiratory cultures. # Pulmonary edema improving. # Bilateral pleural effusions noted on imaging. # Pulmonary embolism ruled out (CT angiography ordered; no DVT on Doppler). - On mechanical ventilation: VC-AC mode, RR 20, TV 550 mL, PEEP 5, FiO? 40%. Through size 8 tracheostomy tube which placed today - Receiving ipratropium and albuterol nebulizers. - CXR: Hypoinflated lungs with bibasilar atelectasis; 12/29 CXR showed stable cardiomegaly, bilateral effusions, and right basilar airspace disease. - Antibiotics: IV Zosyn started 12/21, discontinued 01/09 - IV Vancomycin started 12/23, stopped 12/24, resumed 12/27 - IV Lasix 40 mg daily for volume management. - Therapeutic Lovenox initiated, later discontinued. - Repeat blood and sputum cultures confirmed MSSA. - Postoperative Day 1, status post tracheostomy with size 8 tube placement. GI # Transaminitis-improving # Peptic ulcer prophylaxis # Vitamin B12 deficiency # Constipation, likely slow transit, relieved by lactose,MiraLax& Colace -Pantoprazole 40 mg IV daily - negative hepatitis-B and hepatitis-C - repleted with 1000 mcg B12 - lactulose daily - KUB: Nonobstructive bowel gas pattern. Moderate stool burden. - diet is Vital AF 40 mL held today for sx # morbid obesity with a BMI 50.3 -nutritional counseling after extubation # Reed catheter changed on 01/04/2025 Nephrology # hypernatremia, now improved # hypokalemia, now improved # hypomagnesemia #? Rhabdomyolysis-improving - serum CK 2159 on 12/23/2024, 1263 on 12/24/2024 - monitor -keep potassium above 4 and magnesium above 2 -replete as needed, continuously monitor lab -avoid nephrotoxic agents ID # aspiration pneumonia # sepsis due to above # right IJ catheter tip (placed on 12/18/2024, removed on 12/24/2024) culture growing staph epidermidis - pancultures - IV Zosyn discontinued on 01/09 - IV vancomycin - Tylenol as needed for fever - s/p bronchoscopy x 2 - repeat blood cultures, repeat sputum cultures, showing staph aureus Hem/onc # microcytic anemia, mild - monitor Psychiatry # substance use disorder - we will consider Psychiatry consult once patient is extubated DVT prophylaxis: On Lovenox 40 mg b.i.d. Nutrition: we will place NG start feeds again, Vital AF 40 mL Following up with [facility] for possible transfer. Lines Right PICC placed on 12/24/24 Drips - Versed - fentanyl - propofol Intubated on 12/18/2024 Bronchoscopy on 12/26/24 Repeat bronchoscopy on 12/28/2024 Reed on 01/04/2025 Critical care time 57 minutes excluding procedure. Code status discussed greater than 29 minutes: Full CODE STATUS. Plan discussed with Dr. Iqbal, and nurse Detailed discussion held with patient's mother Ms. Sabillon at bedside., addressed all concerns. Plan discussed with: Other (Mother and RN) My Orders My Orders Orders - AC GRIFFITH RESIDENT Procedure Category Date Status Time Place Ng ORDERS 01/13/25 Transmitted 13:03 Dietary Evaluation Review Comments: 1) Continue TPN to meet at least 75% estimated needs 2) TF Vital High Protein @ 60ml/hr(goal) with current rate of propofol. TF at goal volume together with propofol provides 2471 kcal (100% eenrgy needs) & 126 gm protein (100% protein needs) 3) Monitor TPN tolerance, lab values, I/O, wt trend Expected Outcomes/Goals: To meet >75% estimated needs Fu 2-3 days Date of Service: Jan 13, 2025 Billing Provider: ANTHONY IQBAL MD Common Visit Codes: [id number] CARE 30-74 MIN AC GRIFFITH RESIDENT Jan 13, 2025 17:23 ANTHONY IQBAL MD Jan 15, 2025 12:26
[2025-01-14] VITALS (105 sets, daily range): BP systolic 95–176; BP diastolic 45–104; PULSE 61–111; RESP 16–34; TEMP 98.1–100; O2SAT 93–100
[2025-01-14 04:05] LABS: Hematocrit 32.6 % (41.0-53.0); Hemoglobin 11.3 g/dL (13.5-17.5); Mean Corpuscular Hemoglobin 30.7 pg (28.0-32.0); Mean Corpuscular Volume 88.8 fL (80.0-100.0); Nucleated Red Blood Cells % 0.1 %
[2025-01-14 04:21] LABS: Alanine Aminotransferase 30 U/L (7-40); Albumin 4.3 g/dL (3.2-4.8); Anion Gap 12 (5-15); BUN/Creatinine Ratio 39.5 (10.0-20.0); Blood Urea Nitrogen 15 mg/dL (9-23); Calcium 9.3 mg/dL (8.7-10.4); Carbon Dioxide 21 mmol/L (20-31); Chloride 106 mmol/L (98-107); Glucose 81 mg/dL (74-106); Magnesium 1.7 mg/dL (1.6-2.6); Sodium 139 mmol/L (136-145); Total Protein 7.2 g/dL (5.7-8.2)
[2025-01-14 04:22] LABS: Bilirubin, Total 0.5 mg/dL (0.2-1.0)
[2025-01-14 04:35] LABS: Alkaline Phosphatase 124 U/L (46-116); Potassium 3.4 mmol/L (3.5-5.1)
[2025-01-14] MEDS: POTASSIUM CHL 20MEQ/100ML 100 ML IV ONE (05:48)
[2025-01-14 06:29] LABS: Base Excess -5.4 mmol/L (-2.0-3.0)
--- NOTE | 2025-01-14 06:56 | DVH ---
CHEST RADIOGRAPH Indication: f/u Technique: Single frontal view of the chest was obtained Comparison: XY CHEST XRAY 1 VIEW on DOS: 01/13/25, XY CHEST PORTABLE on DOS: 01/12/25, XY CHEST XRAY 1 VIEW on DOS: 01/12/25 FINDINGS: Lines and Tubes: Tracheostomy tube is unchanged. Right PICC terminates in the superior cavoatrial ju nction. Lungs: Bilateral airspace disease is unchanged. Pleura: No effusion. No pneumothorax. Cardiomediastinal contours: Stable Cardiovascular silhouette Bones: No acute osseous abnormality. IMPRESSION: 1. Stable bilateral airspace disease which may reflect pulmonary edema or pneumonia.
[2025-01-14] MEDS: MAGNESIUM SULFATE 1GM/100ML 100 ML IV SCH (07:39)
--- NOTE | 2025-01-14 10:53 | DVHPN2 ---
Progress Note Date Seen: Jan 14, 2025 Medical Necessity Reason Pt with a Central, PICC or Fol: Yes The following are medically ne: PICC Line, Reed Catheter Reason for reed catheter: Strict I&O Objective vital signs Vital Sign Date Time Temp Pulse Resp B/P (MAP) Pulse Ox O2 Delivery O2 Flow Rate FiO2 01/14/25 10:23 91 21 176/104 (128) 98 40 01/14/25 08:00 99.8 99.8 01/14/25 06:00 Mechanical Ventilator+ Total Intake and Output 01/13/25 01/13/25 01/14/25 15:00 23:00 07:00 Intake Total 812.3 ml 762.740 ml 642.128 ml Output Total 2025 ml 800 ml Balance 812.3 ml -1262.260 ml -157.872 ml medications Current Medications Medications Dose Ordered Sig/Rick Route Start Time Stop Time Status Last Admin Dose Admin Lorazepam 1 mg Q5MINP PRN IV 12/18/24 11:00 12/23/24 08:43 1 MG Midazolam HCl 50 ml @ 1 mls/hr Q24H IV 12/18/24 21:15 01/14/25 07:20 8 MLS/HR Diagnostic Test (Pha) 1 strip Q6HR 12/19/24 12:00 01/14/25 05:54 1 STRIP Insulin Human Regular FOLLOW SLIDING SCALE Q6HR SC 12/19/24 12:00 01/12/25 18:29 2 UNITS Dextrose 50 ml UD IV 12/19/24 10:00 12/22/24 23:25 50 ML Albuterol 2.5 mg Q6HR NEB 12/19/24 18:00 01/14/25 06:41 2.5 MG Ipratropium [place] 0.5 mg Q6HR NEB 12/19/24 18:00 01/14/25 06:41 0.5 MG Pantoprazole Sodium 40 mg DAILY IV 12/21/24 10:00 01/13/25 09:52 40 MG Polyethylene Glycol 17 gm DAILY PO 12/22/24 10:00 Hold 01/07/25 09:44 17 GM Docusate Sodium 100 mg BID GT 12/22/24 10:00 01/11/25 21:29 100 MG Thiamine HCl 100 mg DAILY IV 12/24/24 10:00 01/13/25 09:56 100 MG Folic Acid 1 mg/ Dextrose 50.2 ml @ 200.8 mls/ hr DAILY INJ 12/24/24 10:00 01/13/25 10:12 200.8 MLS/HR Sodium Chloride 10 ml QSHIFT@10,22 IV 12/24/24 22:00 01/13/25 22:02 10 ML Enteral Nutritional Formula 1,000 ml 40ML/HR GT 12/27/24 16:45 01/09/25 21:00 1,000 ML Lactulose 15 ml DAILY PO 12/28/24 10:00 Hold 01/09/25 09:17 15 ML Furosemide 40 mg DAILY IV 12/30/24 10:00 01/13/25 09:56 40 MG Acetaminophen 625 mg Q8HPRN PRN GT 12/31/24 16:00 01/05/25 00:32 625 MG Fentanyl Citrate 250 ml @ 2.5 mls/hr Q24H IV 01/07/25 19:00 01/14/25 05:45 20 MLS/HR Vancomycin HCl 0 ml @ 0 mls/hr UD IV 01/08/25 15:15 Enoxaparin Sodium 40 mg Q12HP SC 01/10/25 22:00 01/13/25 22:02 40 MG Vancomycin HCl 200 ml @ 200 mls/hr Q6H IV 01/10/25 20:00 01/14/25 09:24 200 MLS/HR Acetaminophen 650 mg Q8HP PRN [place] 01/12/25 14:45 Hold Propofol 100 ml @ 4.038 mls/ hr Q24H IV 01/12/25 16:15 01/14/25 09:36 32.304 MLS/HR laboratory and microbiology Laboratory Tests 01/14/25 03:23 Test 01/14/25 03:23 Range/Units Serum Glucose 81 74-106 mg/dL Problem List/Assessment/Plan Problem List/Assessment/Plan 01/06/25 EVALUATED PATIENT FOR ELECTIVE TRACHEOSTOMY, HE IS ON FIO2 OF 50 WITH PEEP OF 6 OR SEVEN, I DO NOT MBELIEVE HE WOULD TOLERATE BREATHING ROOM AIR DURING TRACHEOSTOMY, WILL POST PONE OPERATION TILL FIO2 OF NO MORE THAT 40 AND PEEP OF 5 IS ACHIEVABLE. 01/14/25 NGT inserted atraumatically via left naris ,air injected via tube auscultated by resident MD. asked RN to order cxr for confirmation prior to initiating tube feedings, keep NGT to low continuous suction prior to initiating tube feedings Plan discussed with: Other Dietary Evaluation Review Comments: 1) Continue TPN to meet at least 75% estimated needs 2) TF Vital High Protein @ 60ml/hr(goal) with current rate of propofol. TF at goal volume together with propofol provides 2471 kcal (100% eenrgy needs) & 126 gm protein (100% protein needs) 3) Monitor TPN tolerance, lab values, I/O, wt trend Expected Outcomes/Goals: To meet >75% estimated needs Fu 2-3 days OSMAN BOB MD Jan 14, 2025 10:53
--- NOTE | 2025-01-14 10:57 | DVH ---
CHEST RADIOGRAPH Indication: check placement of ng tube Technique: Single frontal view of the chest was obtained Comparison: XY CHEST XRAY 1 VIEW on DOS: 01/14/25 FINDINGS: Lines and Tubes: The enteric tube courses below the left hemidiaphragm and the tip extends outside th e field of view. Tracheostomy tube is unchanged. Lungs: The lungs are hypoinflated. Hazy bilateral airspace disease. Pleura: No effusion. No pneumothorax. Cardiomediastinal contours: Stable cardiomegaly. Bones: No acute osseous abnormality. IMPRESSION: 1. Lungs are hypoinflated. Diffuse bilateral airspace disease which may reflect edema or pneumonia.
--- NOTE | 2025-01-14 12:04 | DVH ---
Exam: XY KUB ABDOMEN SINGLE VIEW Indication: check placement of ng tube Comparison: XY KUB ABDOMEN SINGLE VIEW on DOS: 01/02/25, XY KUB ABDOMEN SINGLE VIEW on DOS: 12/31/24 Technique: 1 radiographic views of the abdomen. Findings: Enteric catheter in satisfactory position. Nonobstructive bowel gas pattern noted. There is no definite evidence for pneumoperitoneum. No abnormal calcifications noted. Impression: Nonspecific bowel-gas pattern. Enteric catheter in satisfactory position.
--- NOTE | 2025-01-14 12:16 | DVHPNRES ---
Progress Note Date Seen: Jan 14, 2025 Resident Creating Document: AC GRIFFITH RESIDENT Medical Necessity Reason Pt with a Central, PICC or Fol: Yes The following are medically ne: PICC Line, Reed Catheter Reason for reed catheter: Strict I&O Subjective Review of Systems Mr. Lynn is a 24-year-old male with hypertension, chronic pain, and substance abuse disorder was admitted after new-onset seizures, reportedly due to heavy nitrous oxide use. He was intubated on 12/18/2024 following status epilepticus and placed on multiple sedatives including propofol, Versed, and fentanyl. A right IJ central line and OG tube were placed with difficulty due to body habitus. He was transferred to the ICU and maintained on deep sedation. Today, the patient was seen and examined at the bedside. Due to the patients clinical status, review of systems could not be obtained. The patient remains on mechanical ventilation with settings: RR 20, VT 550, FiO 40%, PEEP 5. T-max today's 99.5. Coming down on sedation today, NG tube placed and starting Vital AF feedings. Postoperative day 2 status post tracheostomy tube placement. Correcting electrolytes. Added extra Lasix 40 today evening. Titrating down sedation, consider Precedex if patient is agitated. Changes from previous H/P or p: No Changes Objective vital signs Vital Sign Date Time Temp Pulse Resp B/P (MAP) Pulse Ox O2 Delivery O2 Flow Rate FiO2 01/14/25 12:01 109 24 157/91 (113) 96 40 01/14/25 08:00 99.8 99.8 01/14/25 06:00 Mechanical Ventilator+ Total Intake and Output 01/13/25 01/13/25 01/14/25 15:00 23:00 07:00 Intake Total 812.3 ml 762.740 ml 642.128 ml Output Total 2025 ml 800 ml Balance 812.3 ml -1262.260 ml -157.872 ml medications Current Medications Medications Dose Ordered Sig/Rick Route Start Time Stop Time Status Last Admin Dose Admin Lorazepam 1 mg Q5MINP PRN IV 12/18/24 11:00 12/23/24 08:43 1 MG Midazolam HCl 50 ml @ 1 mls/hr Q24H IV 12/18/24 21:15 01/14/25 07:20 8 MLS/HR Diagnostic Test (Pha) 1 strip Q6HR 12/19/24 12:00 01/14/25 12:08 1 STRIP Insulin Human Regular FOLLOW SLIDING SCALE Q6HR SC 12/19/24 12:00 01/12/25 18:29 2 UNITS Dextrose 50 ml UD IV 12/19/24 10:00 12/22/24 23:25 50 ML Albuterol 2.5 mg Q6HR NEB 12/19/24 18:00 01/14/25 06:41 2.5 MG Ipratropium [place] 0.5 mg Q6HR NEB 12/19/24 18:00 01/14/25 06:41 0.5 MG Pantoprazole Sodium 40 mg DAILY IV 12/21/24 10:00 01/14/25 11:29 40 MG Polyethylene Glycol 17 gm DAILY PO 12/22/24 10:00 Hold 01/07/25 09:44 17 GM Docusate Sodium 100 mg BID GT 12/22/24 10:00 01/11/25 21:29 100 MG Thiamine HCl 100 mg DAILY IV 12/24/24 10:00 01/14/25 11:46 100 MG Folic Acid 1 mg/ Dextrose 50.2 ml @ 200.8 mls/ hr DAILY INJ 12/24/24 10:00 01/14/25 11:53 200.8 MLS/HR Sodium Chloride 10 ml QSHIFT@10,22 IV 12/24/24 22:00 01/14/25 11:43 10 ML Enteral Nutritional Formula 1,000 ml 40ML/HR GT 12/27/24 16:45 01/09/25 21:00 1,000 ML Lactulose 15 ml DAILY PO 12/28/24 10:00 Hold 01/09/25 09:17 15 ML Furosemide 40 mg DAILY IV 12/30/24 10:00 01/14/25 11:42 40 MG Acetaminophen 625 mg Q8HPRN PRN GT 12/31/24 16:00 01/05/25 00:32 625 MG Fentanyl Citrate 250 ml @ 2.5 mls/hr Q24H IV 01/07/25 19:00 01/14/25 05:45 20 MLS/HR Vancomycin HCl 0 ml @ 0 mls/hr UD IV 01/08/25 15:15 Enoxaparin Sodium 40 mg Q12HP SC 01/10/25 22:00 01/14/25 11:43 40 MG Vancomycin HCl 200 ml @ 200 mls/hr Q6H IV 01/10/25 20:00 01/14/25 09:24 200 MLS/HR Acetaminophen 650 mg Q8HP PRN [place] 01/12/25 14:45 Hold Propofol 100 ml @ 4.038 mls/ hr Q24H IV 01/12/25 16:15 01/14/25 09:36 32.304 MLS/HR Examination Pt is lying on bed, RASS -2 General Appearance: Sedated and mechanically ventilated obese adult HEENT: Atraumatic, Mucous membranes moist/pink, tracheostomy tube in place Respiratory: Coarse bilateral breath sounds, improved, vent settings RR 20, VT 550, FiO? 40%, PEEP 5 Cardiovascular: Regular rate, Normal S1, Normal S2, No murmurs Abdominal: Active bowel sounds, Soft, no distention, Extremities: No edema, Normal pulses, No tenderness/swelling Skin: No Significant rash, except past surgical scars Neuro: Reactive pupils, gag reflex intact Psych/Mental Status: Mental status NL, Mood NL Nurse was there as quarter section ironer during examination laboratory and microbiology Laboratory Tests 01/14/25 03:23 Test 01/14/25 03:23 Range/Units Serum Glucose 81 74-106 mg/dL Microbiology Date/Time Source Procedure Growth Status 01/04/25 18:35 Blood Blood Culture - Final NO GROWTH AFTER 5 DAYS OF INCUBATION. Complete 01/04/25 18:15 Sputum Gram Stain - Final Complete 01/04/25 18:15 Respiratory Culture - Final Staphylococcus aureus Complete 01/04/25 17:00 Urine - [place] Urine Culture - Final Complete 12/25/24 15:20 Catheter Site Aerobic Culture - Final Staphylococcus epidermidis Complete Labs and/or images reviewed: Labs reviewed by me, Image(s) reviewed by me Problem List/Assessment/Plan Problem List/Assessment/Plan Neurology # Acute toxic/metabolic encephalopathy with new-onset or breakthrough generalized seizures, likely multifactorial: # Medication nonadherence (valproic acid level 22.1, subtherapeutic) # Possible alcohol withdrawal (CIWA not assessable due to sedation) # Substance abuse (notably nitrous oxide) - Current sedation:Versed 8 mcg/kg/min, Fentanyl 200 mcg/hr, Propofol 50 mcg/kg/min-coming down from sedation - Seizure management as below - Versed - IV levetiracetam 1500 mg BID - IV lorazepam PRN - Last seizure on 12/23/2024 - EEG: Largely unremarkable - Head CT & Brain MRI: No acute findings; MRI showed pansinusitis and prominent cervical lymphadenopathy - Supportive care: Received IV banana bags x2, thiamine, and folic acid - Neurology is on board for ongoing evaluation Cardiovascular # HTN # Sepsis secondary to aspiration pneumonia - Abx Vancomycin Respiratory # Acute hypoxic respiratory failure secondary to status epilepticus, intubated on 12/18/2024. # Probable aspiration pneumonia with MSSA isolated in both blood and respiratory cultures. # Pulmonary edema improving. # Bilateral pleural effusions noted on imaging. # Pulmonary embolism ruled out (CT angiography ordered; no DVT on Doppler). - On mechanical ventilation: VC-AC mode, RR 20, TV 550 mL, PEEP 5, FiO? 40%. Through size 8 tracheostomy tube which placed - Receiving ipratropium and albuterol nebulizers. - CXR: Hypoinflated lungs with bibasilar atelectasis; 12/29 CXR showed stable cardiomegaly, bilateral effusions, and right basilar airspace disease. - Antibiotics: IV Zosyn started 12/21, discontinued 01/09 - IV Vancomycin started 12/23, stopped 12/24, resumed 12/27 - IV Lasix 40 mg daily for volume management., Added extra Lasix 40 today evening. - Therapeutic Lovenox initiated, later discontinued. - Repeat blood and sputum cultures confirmed MSSA. - Postoperative Day 1, status post tracheostomy with size 8 tube placement. GI # Transaminitis-improving # Peptic ulcer prophylaxis # Vitamin B12 deficiency # Constipation, likely slow transit, relieved by lactose,MiraLax& Colace -Pantoprazole 40 mg IV daily - negative hepatitis-B and hepatitis-C - repleted with 1000 mcg B12 - lactulose daily - KUB: Nonobstructive bowel gas pattern. Moderate stool burden. - diet is Vital AF 40 mL # morbid obesity with a BMI 50.3 -nutritional counseling after extubation # Reed catheter changed on 01/04/2025 Nephrology # hypernatremia, now improved # hypokalemia, now improved # hypomagnesemia #? Rhabdomyolysis-improving - serum CK - monitor -keep potassium above 4 and magnesium above 2 -replete as needed, continuously monitor lab -avoid nephrotoxic agents ID # aspiration pneumonia # sepsis due to above # right IJ catheter tip (placed on 12/18/2024, removed on 12/24/2024) culture growing staph epidermidis - pancultures - IV Zosyn discontinued on 01/09 - IV vancomycin - Tylenol as needed for fever - s/p bronchoscopy x 2 - repeat blood cultures, repeat sputum cultures, showing staph aureus Hem/onc # microcytic anemia, mild - monitor Psychiatry # substance use disorder - we will consider Psychiatry consult once patient is extubated DVT prophylaxis: On Lovenox 40 mg b.i.d. Nutrition: NG start feeds again, Vital AF 40 mL Following up with [facility] for possible transfer. Lines Right PICC placed on 12/24/24 Drips -titrating down on sedation - Versed - fentanyl - propofol Intubated on 12/18/2024 Bronchoscopy on 12/26/24 Repeat bronchoscopy on 12/28/2024 Reed on 01/04/2025 Critical care time 57 minutes excluding procedure. Code status discussed greater than 29 minutes: Full CODE STATUS. Detailed discussion held with patient's mother Ms. Sabillon at bedside., addressed all concerns. Plan discussed with Dr. New, and discussed about Respironics, adding more Lasix, following up BUN creatinine and considering CT head after discussion with neurologist if neurological status not improving. Plan discussed with: Other (Mother and RN) My Orders My Orders Orders - AC GRIFFITH Procedure Category Date Status Time Place Ng ORDERS 01/13/25 Transmitted 13:03 Abg W/ Co-Ox RT 01/14/25 Logged 04:00 Chest Xray 1 View XY 01/14/25 Resulted 04:00 Furosemide Injection PHA 01/14/25 Logged (Lasix Injection) 18:00 Dietary Evaluation Review Comments: 1) Continue TPN to meet at least 75% estimated needs 2) TF Vital High Protein @ 60ml/hr(goal) with current rate of propofol. TF at goal volume together with propofol provides 2471 kcal (100% eenrgy needs) & 126 gm protein (100% protein needs) 3) Monitor TPN tolerance, lab values, I/O, wt trend Expected Outcomes/Goals: To meet >75% estimated needs Fu 2-3 days AC GRIFFITH RESIDENT Jan 14, 2025 12:16
[2025-01-14] MEDS: FUROSEMIDE 40 MG/4 ML VIAL IV ONE (17:38)
[2025-01-15] VITALS (106 sets, daily range): BP systolic 104–198; BP diastolic 50–124; PULSE 55–110; RESP 16–32; TEMP 98.4–100.5; O2SAT 93–100
[2025-01-15 03:54] LABS: Hematocrit 33.8 % (41.0-53.0); Hemoglobin 12.0 g/dL (13.5-17.5); Mean Corpuscular Hemoglobin 30.9 pg (28.0-32.0); Mean Corpuscular Volume 86.7 fL (80.0-100.0); Nucleated Red Blood Cells % 0.0 %
[2025-01-15 04:14] LABS: Alanine Aminotransferase 31 U/L (7-40); Albumin 4.7 g/dL (3.2-4.8); Anion Gap 14 (5-15); BUN/Creatinine Ratio 27.9 (10.0-20.0); Blood Urea Nitrogen 12 mg/dL (9-23); Calcium 9.9 mg/dL (8.7-10.4); Carbon Dioxide 21 mmol/L (20-31); Chloride 104 mmol/L (98-107); Glucose 89 mg/dL (74-106); Sodium 139 mmol/L (136-145); Total Protein 7.9 g/dL (5.7-8.2)
[2025-01-15 04:15] LABS: Bilirubin, Total 0.8 mg/dL (0.2-1.0)
[2025-01-15 04:21] LABS: Alkaline Phosphatase 143 U/L (46-116); Magnesium 1.5 mg/dL (1.6-2.6); Potassium 3.5 mmol/L (3.5-5.1)
--- NOTE | 2025-01-15 05:27 | DVH ---
CHEST RADIOGRAPH Indication: f/u Technique: Single frontal view of the chest was obtained Comparison: XY CHEST PORTABLE on DOS: 01/14/25, XY CHEST XRAY 1 VIEW on DOS: 01/14/25, XY CHEST XRAY 1 EW on DOS: 01/13/25, XY CHEST PORTABLE on DOS: 01/12/25, XY CHEST XRAY 1 VIEW on DOS: 01/12/25 FINDINGS: Lines and Tubes: Unchanged tracheostomy and enteric tubes. Lungs: Persistent low lung volumes with diffuse interstitial opacities and bibasilar airspace disease likely atelectasis. Pleura: No evident pleural effusion or pneumothorax. Cardiomediastinal contours: Unchanged. Bones: Unchanged. IMPRESSION: 1. No significant change from the previous day. Persistent low lung volumes and diffuse interstitial opacities. Stable support devices.
[2025-01-15 07:09] LABS: Base Excess -3.9 mmol/L (-2.0-3.0)
--- NOTE | 2025-01-15 09:12 | DVHPN2 ---
Progress Note Date Seen: Jan 15, 2025 Medical Necessity Reason Pt with a Central, PICC or Fol: Yes The following are medically ne: PICC Line, Reed Catheter Reason for reed catheter: Strict I&O Objective vital signs Vital Sign Date Time Temp Pulse Resp B/P (MAP) Pulse Ox O2 Delivery O2 Flow Rate FiO2 01/15/25 08:14 100.5 01/15/25 07:41 165/99 01/15/25 07:15 102 20 96 01/15/25 06:40 30 01/15/25 06:00 Mechanical Ventilator+ 01/14/25 20:30 30.0 Total Intake and Output 01/14/25 01/14/25 01/15/25 15:00 23:00 07:00 Intake Total 684.04 ml 442.230 ml 518.862 ml Output Total 2900 ml 1150 ml Balance 684.04 ml -2457.770 ml -631.138 ml medications Current Medications Medications Dose Ordered Sig/Rick Route Start Time Stop Time Status Last Admin Dose Admin Lorazepam 1 mg Q5MINP PRN IV 12/18/24 11:00 12/23/24 08:43 1 MG Midazolam HCl 50 ml @ 1 mls/hr Q24H IV 12/18/24 21:15 01/15/25 02:17 6 MLS/HR Diagnostic Test (Pha) 1 strip Q6HR 12/19/24 12:00 01/15/25 05:44 1 STRIP Insulin Human Regular FOLLOW SLIDING SCALE Q6HR SC 12/19/24 12:00 01/12/25 18:29 2 UNITS Dextrose 50 ml UD IV 12/19/24 10:00 12/22/24 23:25 50 ML Albuterol 2.5 mg Q6HR NEB 12/19/24 18:00 01/15/25 06:40 2.5 MG Ipratropium [place] 0.5 mg Q6HR NEB 12/19/24 18:00 01/15/25 06:40 0.5 MG Pantoprazole Sodium 40 mg DAILY IV 12/21/24 10:00 01/14/25 11:29 40 MG Polyethylene Glycol 17 gm DAILY PO 12/22/24 10:00 Hold 01/07/25 09:44 17 GM Docusate Sodium 100 mg BID GT 12/22/24 10:00 01/14/25 21:20 100 MG Thiamine HCl 100 mg DAILY IV 12/24/24 10:00 01/14/25 11:46 100 MG Folic Acid 1 mg/ Dextrose 50.2 ml @ 200.8 mls/ hr DAILY INJ 12/24/24 10:00 01/14/25 11:53 200.8 MLS/HR Sodium Chloride 10 ml QSHIFT@10,22 IV 12/24/24 22:00 01/14/25 21:20 10 ML Enteral Nutritional Formula 1,000 ml 40ML/HR GT 12/27/24 16:45 01/09/25 21:00 1,000 ML Lactulose 15 ml DAILY PO 12/28/24 10:00 Hold 01/09/25 09:17 15 ML Furosemide 40 mg DAILY IV 12/30/24 10:00 01/14/25 11:42 40 MG Acetaminophen 625 mg Q8HPRN PRN GT 12/31/24 16:00 01/15/25 08:14 625 MG Fentanyl Citrate 250 ml @ 2.5 mls/hr Q24H IV 01/07/25 19:00 01/15/25 07:40 10 MLS/HR Vancomycin HCl 0 ml @ 0 mls/hr UD IV 01/08/25 15:15 Enoxaparin Sodium 40 mg Q12HP SC 01/10/25 22:00 01/14/25 21:21 40 MG Acetaminophen 650 mg Q8HP PRN [place] 01/12/25 14:45 Hold Propofol 100 ml @ 4.038 mls/ hr Q24H IV 01/12/25 16:15 01/15/25 07:41 36.342 MLS/HR Vancomycin HCl 200 ml @ 200 mls/hr Q6H IV 01/15/25 05:00 01/15/25 05:08 200 MLS/HR laboratory and microbiology Laboratory Tests 01/15/25 03:10 Test 01/15/25 03:10 Range/Units Serum Glucose 89 74-106 mg/dL Problem List/Assessment/Plan Problem List/Assessment/Plan 01/06/25 EVALUATED PATIENT FOR ELECTIVE TRACHEOSTOMY, HE IS ON FIO2 OF 50 WITH PEEP OF 6 OR SEVEN, I DO NOT MBELIEVE HE WOULD TOLERATE BREATHING ROOM AIR DURING TRACHEOSTOMY, WILL POST PONE OPERATION TILL FIO2 OF NO MORE THAT 40 AND PEEP OF 5 IS ACHIEVABLE. 01/14/25 NGT inserted atraumatically via left naris ,air injected via tube auscultated by resident MD. asked RN to order cxr for confirmation prior to initiating tube feedings, keep NGT to low continuous suction prior to initiating tube feedings 01/15/25 no problems reported with tracheostomy or feeding ngt,cxr reviewed, "surgically"stable, please recall if needed Plan discussed with: Other Dietary Evaluation Review Comments: 1) Continue TPN to meet at least 75% estimated needs 2) TF Vital High Protein @ 60ml/hr(goal) with current rate of propofol. TF at goal volume together with propofol provides 2471 kcal (100% eenrgy needs) & 126 gm protein (100% protein needs) 3) Monitor TPN tolerance, lab values, I/O, wt trend Expected Outcomes/Goals: To meet >75% estimated needs Fu 2-3 days OSMAN BOB MD Jan 15, 2025 09:11
[2025-01-15] MEDS: MAGNESIUM SULFATE 1GM/100ML 100 ML IV SCH (15:34)
--- NOTE | 2025-01-15 17:32 | DVHPN2 ---
Progress Note Date Seen: Jan 15, 2025 Medical Necessity Reason Pt with a Central, PICC or Fol: Yes The following are medically ne: PICC Line, Reed Catheter Reason for reed catheter: Strict I&O Subjective Patient reports: Other (Intubated and sedated. Tachycardic on awaiting sedation. Daily SAT/SBT) Changes from previous H/P or p: No Changes Objective vital signs Vital Sign Date Time Temp Pulse Resp B/P (MAP) Pulse Ox O2 Delivery O2 Flow Rate FiO2 01/15/25 16:44 91 20 138/87 (104) 98 30 01/15/25 16:30 Mechanical Ventilator+ 01/15/25 16:30 98.6 98.6 01/14/25 20:30 30.0 Total Intake and Output 01/14/25 01/14/25 01/15/25 15:00 23:00 07:00 Intake Total 684.04 ml 442.230 ml 571.162 ml Output Total 2900 ml 1150 ml Balance 684.04 ml -2457.770 ml -578.838 ml medications Current Medications Medications Dose Ordered Sig/Rick Route Start Time Stop Time Status Last Admin Dose Admin Lorazepam 1 mg Q5MINP PRN IV 12/18/24 11:00 12/23/24 08:43 1 MG Midazolam HCl 50 ml @ 1 mls/hr Q24H IV 12/18/24 21:15 01/15/25 14:08 7 MLS/HR Diagnostic Test (Pha) 1 strip Q6HR 12/19/24 12:00 01/15/25 16:32 1 STRIP Insulin Human Regular FOLLOW SLIDING SCALE Q6HR SC 12/19/24 12:00 01/12/25 18:29 2 UNITS Dextrose 50 ml UD IV 12/19/24 10:00 12/22/24 23:25 50 ML Albuterol 2.5 mg Q6HR NEB 12/19/24 18:00 01/15/25 12:00 2.5 MG Ipratropium [place] 0.5 mg Q6HR NEB 12/19/24 18:00 01/15/25 12:00 0.5 MG Pantoprazole Sodium 40 mg DAILY IV 12/21/24 10:00 01/15/25 10:45 40 MG Polyethylene Glycol 17 gm DAILY PO 12/22/24 10:00 Hold 01/07/25 09:44 17 GM Docusate Sodium 100 mg BID GT 12/22/24 10:00 01/14/25 21:20 100 MG Thiamine HCl 100 mg DAILY IV 12/24/24 10:00 01/15/25 10:44 100 MG Folic Acid 1 mg/ Dextrose 50.2 ml @ 200.8 mls/ hr DAILY INJ 12/24/24 10:00 01/15/25 10:43 200.8 MLS/HR Sodium Chloride 10 ml QSHIFT@10,22 IV 12/24/24 22:00 01/15/25 10:46 10 ML Enteral Nutritional Formula 1,000 ml 40ML/HR GT 12/27/24 16:45 01/09/25 21:00 1,000 ML Lactulose 15 ml DAILY PO 12/28/24 10:00 Hold 01/09/25 09:17 15 ML Furosemide 40 mg DAILY IV 12/30/24 10:00 01/15/25 10:45 40 MG Acetaminophen 625 mg Q8HPRN PRN GT 12/31/24 16:00 01/15/25 08:14 625 MG Fentanyl Citrate 250 ml @ 2.5 mls/hr Q24H IV 01/07/25 19:00 01/15/25 07:40 10 MLS/HR Vancomycin HCl 0 ml @ 0 mls/hr UD IV 01/08/25 15:15 Enoxaparin Sodium 40 mg Q12HP SC 01/10/25 22:00 01/15/25 10:46 40 MG Acetaminophen 650 mg Q8HP PRN [place] 01/12/25 14:45 Hold Propofol 100 ml @ 4.038 mls/ hr Q24H IV 01/12/25 16:15 01/15/25 14:09 40.38 MLS/HR Vancomycin HCl 200 ml @ 200 mls/hr Q6H IV 01/15/25 05:00 01/15/25 10:44 200 MLS/HR Examination Patient is a 24 years old male, morbidly obese, intubated and sedated HEENT-atraumatic, normocephalic Heart-regular rate and rhythm Lungs decreased breath sounds bilaterally due to body habitus Abdomen soft nontender nondistended Musculoskeletal-no edema cyanosis Neuro-intubated and sedated laboratory and microbiology Laboratory Tests 01/15/25 03:10 Test 01/15/25 03:10 Range/Units Serum Glucose 89 74-106 mg/dL Microbiology Date/Time Source Procedure Growth Status 01/04/25 18:35 Blood Blood Culture - Final NO GROWTH AFTER 5 DAYS OF INCUBATION. Complete 01/04/25 18:15 Sputum Gram Stain - Final Complete 01/04/25 18:15 Respiratory Culture - Final Staphylococcus aureus Complete 01/04/25 17:00 Urine - Reed [place] Urine Culture - Final Complete 12/25/24 15:20 Catheter Site Aerobic Culture - Final Staphylococcus epidermidis Complete Problem List/Assessment/Plan Problem List/Assessment/Plan Neurology # Acute toxic/metabolic encephalopathy with new-onset or breakthrough generalized seizures, likely multifactorial: # Medication nonadherence (valproic acid level 22.1, subtherapeutic) # Possible alcohol withdrawal (CIWA not assessable due to sedation) # Substance abuse (notably nitrous oxide) - Current sedation:Versed 8 mcg/kg/min, Fentanyl 200 mcg/hr, Propofol 50 mcg/kg/min-coming down from sedation - Seizure management as below - Versed - IV levetiracetam 1500 mg BID - IV lorazepam PRN - Last seizure on 12/23/2024 - EEG: Largely unremarkable - Head CT & Brain MRI: No acute findings; MRI showed pansinusitis and prominent cervical lymphadenopathy - Supportive care: Received IV banana bags x2, thiamine, and folic acid - Neurology is on board for ongoing evaluation - daily SBT/SAT Cardiovascular # HTN # Sepsis secondary to aspiration pneumonia - Abx Vancomycin Respiratory # Acute hypoxic respiratory failure secondary to status epilepticus, intubated on 12/18/2024. # Probable aspiration pneumonia with MSSA isolated in both blood and respiratory cultures. # Pulmonary edema improving. # Bilateral pleural effusions noted on imaging. # Pulmonary embolism ruled out (CT angiography ordered; no DVT on Doppler). - On mechanical ventilation: VC-AC mode, RR 20, TV 550 mL, PEEP 5, FiO? 40%. Through size 8 tracheostomy tube which placed - Receiving ipratropium and albuterol nebulizers. - CXR: Hypoinflated lungs with bibasilar atelectasis; 12/29 CXR showed stable cardiomegaly, bilateral effusions, and right basilar airspace disease. - Antibiotics: IV Zosyn started 12/21, discontinued 01/09 - IV Vancomycin started 12/23, stopped 12/24, resumed 12/27. Completed coures of abx. discontinue - IV lasix 40mg bid - F/u with nephro rec - Therapeutic Lovenox initiated, later discontinued. - Repeat blood and sputum cultures confirmed MSSA. - Postoperative Day 1, status post tracheostomy with size 8 tube placement. GI # Transaminitis-improving # Peptic ulcer prophylaxis # Vitamin B12 deficiency # Constipation, likely slow transit, relieved by lactose,MiraLax& Colace -Pantoprazole 40 mg IV daily - negative hepatitis-B and hepatitis-C - repleted with 1000 mcg B12 - lactulose daily - KUB: Nonobstructive bowel gas pattern. Moderate stool burden. - diet is Vital AF 40 mL # morbid obesity with a BMI 50.3 -nutritional counseling after extubation # Reed catheter changed on 01/04/2025 Nephrology # hypernatremia, now improved # hypokalemia, now improved # hypomagnesemia #? Rhabdomyolysis-improving - serum CK - monitor -keep potassium above 4 and magnesium above 2 -replete as needed, continuously monitor lab -avoid nephrotoxic agents ID # aspiration pneumonia # sepsis due to above # right IJ catheter tip (placed on 12/18/2024, removed on 12/24/2024) culture growing staph epidermidis - pancultures - IV Zosyn discontinued on 01/09 - IV vancomycin - Tylenol as needed for fever - s/p bronchoscopy x 2 - repeat blood cultures, repeat sputum cultures, showing staph aureus - DC iv abx. Hem/onc # microcytic anemia, mild - monitor Psychiatry # substance use disorder - we will consider Psychiatry consult once patient is extubated DVT prophylaxis: On Lovenox 40 mg b.i.d. Nutrition: NG start feeds again, Vital AF 40 mL Following up with [facility] for possible transfer. Lines Right PICC placed on 12/24/24 Drips -titrating down on sedation - Versed - fentanyl - propofol Intubated on 12/18/2024 Bronchoscopy on 12/26/24 Repeat bronchoscopy on 12/28/2024 Reed on 01/04/2025 Critical care time 55 minutes excluding procedure. Plan discussed with: Patient, Other (mother) Dietary Evaluation Review Comments: 1) Continue TPN to meet at least 75% estimated needs 2) TF Vital High Protein @ 60ml/hr(goal) with current rate of propofol. TF at goal volume together with propofol provides 2471 kcal (100% eenrgy needs) & 126 gm protein (100% protein needs) 3) Monitor TPN tolerance, lab values, I/O, wt trend Expected Outcomes/Goals: To meet >75% estimated needs Fu 2-3 days Date of Service: Jan 15, 2025 Billing Provider: TRACY CASTRO MD Common Visit Codes: [id number] CARE 30-74 MIN TRACY CASTRO MD Jan 15, 2025 17:32
[2025-01-15] MEDS: FUROSEMIDE 40 MG/4 ML VIAL IV SCH (18:32)
--- NOTE | 2025-01-15 22:07 | DVHPN2 ---
Progress Note - Dictate Date Seen: Jan 15, 2025 Medical Necessity Reason Pt with a Central, PICC or Fol: Yes The following are medically ne: PICC Line, Reed Catheter Reason for reed catheter: Strict I&O Subjective Mr. Perry is a 24 years old right-handed gentleman with a history of hypertension, pain syndrome, substance abuse, he was admitted to the [facility] on 12/17/2024 for new onset seizure activity. I have seen and examined the patient, discussed with his nurses. He is awake, he only follow a few verbal commands, he has social smile He is status post tracheostomy (01/12/2025), status post PEG tube (01/14/2025) Blood culture, 12/25/2024: No growth Sputum culture, 12/25/2024: Staphylococcus aureus Urine culture, 01/04/2025: Urinalysis, 12/17/2024: Unremarkable Urine drug screening, 12/17/2024: Benzo Valproic acid, 12/17/2024: 22.1 Plasma alcohol, 12/17/2024: <3 ABG, 12/18/2024: Respiratory acidosis, 12/20/2024: Acidosis, 12/22/2024: Hypoxia, 12/24/2024: Hypoxia, carbon dioxide retention, 12/25/2024: Hypoxia, carbon dioxide retention, 12/29/2024: Hypoxia, carbon dioxide retention WBC/HB/PLT/MCV, 12/20/2024: 8/12.4/233/90.4 CMP 12/18/2024: Unremarkable TBI/AST/ALT/AP, 12/20/2024: 0.7/44/45/143 EEG, 12/19/2019 10/26/24 13:15: Normal EEG, 12/23/2024: Moderately abnormal EEG Bronchoscopy 01/12/25: There were copious blood tinged secretions in the airways bilaterally Chest x-ray 12/18/2024: Endotracheal tube 0.7 cm above the rogers. Nasogastric tube in the proximal stomach Chest x-ray, 12/27/2024: 1. Stable mild multifocal bilateral pulmonary airspace disease, most notably at the lung bases. 2. Lines and tubes unchanged Chest x-ray, 12/29/2024: 1. Stable cardiomegaly, bilateral pleural effusions and moderate diffuse increased prominence of the pulmonary vasculature. 2. Right basilar pulmonary airspace disease. 3. Interval retraction of endotracheal tube as above. Remaining lines and tubes unchanged Chest x-ray, : Lines and tubes in satisfactory position. No significant interval change. CT head, 12/17/2024: No evidence of acute intracranial abnormality. If symptoms persist, consider MRI for further evaluation MR head, 12/21/2024: No evidence of acute infarction, intracranial hemorrhage, mass effect or hydrocephalus. No evidence of mesial temporal sclerosis. Pansinusitis. Prominent bilateral cervical lymph nodes. This can be further evaluated with ultrasound vital signs Vital Sign Date Time Temp Pulse Resp B/P (MAP) Pulse Ox O2 Delivery O2 Flow Rate FiO2 01/15/25 20:15 65 20 107/53 (71) 100 30 01/15/25 18:27 Mechanical Ventilator 01/15/25 16:30 98.6 98.6 01/14/25 20:30 30.0 Total Intake and Output 01/14/25 01/14/25 01/15/25 15:00 23:00 07:00 Intake Total 684.04 ml 442.230 ml 571.162 ml Output Total 2900 ml 1150 ml Balance 684.04 ml -2457.770 ml -578.838 ml medications Current Medications Medications Dose Ordered Sig/Rick Route Start Time Stop Time Status Last Admin Dose Admin Lorazepam 1 mg Q5MINP PRN IV 12/18/24 11:00 12/23/24 08:43 1 MG Midazolam HCl 50 ml @ 1 mls/hr Q24H IV 12/18/24 21:15 01/15/25 21:33 7 MLS/HR Diagnostic Test (Pha) 1 strip Q6HR 12/19/24 12:00 01/15/25 16:32 1 STRIP Insulin Human Regular FOLLOW SLIDING SCALE Q6HR SC 12/19/24 12:00 01/12/25 18:29 2 UNITS Dextrose 50 ml UD IV 12/19/24 10:00 12/22/24 23:25 50 ML Albuterol 2.5 mg Q6HR NEB 12/19/24 18:00 01/15/25 18:25 2.5 MG Ipratropium [place] 0.5 mg Q6HR NEB 12/19/24 18:00 01/15/25 18:25 0.5 MG Pantoprazole Sodium 40 mg DAILY IV 12/21/24 10:00 01/15/25 10:45 40 MG Polyethylene Glycol 17 gm DAILY PO 12/22/24 10:00 Hold 01/07/25 09:44 17 GM Docusate Sodium 100 mg BID GT 12/22/24 10:00 01/15/25 21:40 100 MG Thiamine HCl 100 mg DAILY IV 12/24/24 10:00 01/15/25 10:44 100 MG Folic Acid 1 mg/ Dextrose 50.2 ml @ 200.8 mls/ hr DAILY INJ 12/24/24 10:00 01/15/25 10:43 200.8 MLS/HR Sodium Chloride 10 ml QSHIFT@10,22 IV 12/24/24 22:00 01/15/25 21:47 10 ML Enteral Nutritional Formula 1,000 ml 40ML/HR GT 12/27/24 16:45 01/09/25 21:00 1,000 ML Lactulose 15 ml DAILY PO 12/28/24 10:00 Hold 01/09/25 09:17 15 ML Acetaminophen 625 mg Q8HPRN PRN GT 12/31/24 16:00 01/15/25 08:14 625 MG Fentanyl Citrate 250 ml @ 2.5 mls/hr Q24H IV 01/07/25 19:00 01/15/25 18:37 20 MLS/HR Enoxaparin Sodium 40 mg Q12HP SC 01/10/25 22:00 01/15/25 21:47 40 MG Acetaminophen 650 mg Q8HP PRN NM 01/12/25 14:45 Hold Propofol 100 ml @ 4.038 mls/ hr Q24H IV 01/12/25 16:15 01/15/25 21:34 40.38 MLS/HR Furosemide 40 mg BIDD IV 01/15/25 18:00 01/15/25 18:32 40 MG objective The patient is well-nourished and well-developed with no distress. The patient is status post tracheostomy, feeding tube insertion MENTAL STATUS: Subjective CRANIAL NERVES: Pupils are equal, round and reactive. There is conjugated eye movement. Sensorimotor examined in bilateral trigeminal distribution is unremarkable, no facial weakness SENSATION: Okay to pinprick and light touch MOTOR: Normal tone in the upper and lower extremity. Normal muscle bulk. No fasciculations. He can move the arms and legs REFLEXES: Deep tendon reflexes are symmetrical. No pathological reflexes. CEREBELLAR/COORDINATION: Deferred GAIT/STATION: deferred laboratory and microbiology Laboratory Tests 01/15/25 03:10 Test 01/15/25 03:10 Range/Units Serum Glucose 89 74-106 mg/dL Problem List Come, resolved Metabolic encephalopathy Hypoxic encephalopathy Toxic encephalopathy ? Status epileptics New onset seizure, status epileptics Likely secondary to substance abuse Rule out epileptic seizure or other acute symptomatic seizure The activity witnessed on 12/23/2024 was not typical to seizure, likely myoclonus Substance abuse ? Depression Respiratory failure/hypoxia, status post tracheostomy Pneumonia Dysphagia/status post feeding tube insertion Assessment/Plan Monitoring Supportive treatment Telemetry Follow-up lab ICU care Stabilize vitals Respiratory support/vent management Ativan for seizure breakthrough Need history from him directly Consider tele psych consultation Re: The previous substance abuse later Tube feeding More recommendation per clinical course This medical document was created using an electronic medical record system with [employer] dictation system. Although this document has been carefully reviewed, there may still be some phonetic and typographical errors. These areas are purely typographical due to imperfections of the software programs, and do not reflect any compromise in the patient's medical care. Prognosis poor Dietary Evaluation Review Comments: 1) Continue TPN to meet at least 75% estimated needs 2) TF Vital High Protein @ 60ml/hr(goal) with current rate of propofol. TF at goal volume together with propofol provides 2471 kcal (100% eenrgy needs) & 126 gm protein (100% protein needs) 3) Monitor TPN tolerance, lab values, I/O, wt trend Expected Outcomes/Goals: To meet >75% estimated needs Fu 2-3 days Plan discussed with: Other BONNY PEREZ MD Jan 15, 2025 22:07
--- NOTE | 2025-01-15 23:27 | DVHPN2 ---
Progress Note - Dictate Date Seen: Jan 15, 2025 Medical Necessity Reason Pt with a Central, PICC or Fol: Yes The following are medically ne: PICC Line, Reed Catheter Reason for reed catheter: Strict I&O Subjective Patient seen and examined at bedside. Sedated, intubated on mechanical ventilator. Overnight events reviewed. vital signs Vital Sign Date Time Temp Pulse Resp B/P (MAP) Pulse Ox O2 Delivery O2 Flow Rate FiO2 01/15/25 23:00 79 20 145/75 (98) 94 01/15/25 22:10 30 01/15/25 22:00 Mechanical Ventilator+ 01/15/25 20:00 98.4 98.4 01/14/25 20:30 30.0 Total Intake and Output 01/14/25 01/14/25 01/15/25 15:00 23:00 07:00 Intake Total 684.04 ml 442.230 ml 571.162 ml Output Total 2900 ml 1150 ml Balance 684.04 ml -2457.770 ml -578.838 ml medications Current Medications Medications Dose Ordered Sig/Rick Route Start Time Stop Time Status Last Admin Dose Admin Lorazepam 1 mg Q5MINP PRN IV 12/18/24 11:00 12/23/24 08:43 1 MG Midazolam HCl 50 ml @ 1 mls/hr Q24H IV 12/18/24 21:15 01/15/25 21:33 7 MLS/HR Diagnostic Test (Pha) 1 strip Q6HR 12/19/24 12:00 01/15/25 16:32 1 STRIP Insulin Human Regular FOLLOW SLIDING SCALE Q6HR SC 12/19/24 12:00 01/12/25 18:29 2 UNITS Dextrose 50 ml UD IV 12/19/24 10:00 12/22/24 23:25 50 ML Albuterol 2.5 mg Q6HR NEB 12/19/24 18:00 01/15/25 18:25 2.5 MG Ipratropium [place] 0.5 mg Q6HR NEB 12/19/24 18:00 01/15/25 18:25 0.5 MG Pantoprazole Sodium 40 mg DAILY IV 12/21/24 10:00 01/15/25 10:45 40 MG Polyethylene Glycol 17 gm DAILY PO 12/22/24 10:00 Hold 01/07/25 09:44 17 GM Docusate Sodium 100 mg BID GT 12/22/24 10:00 01/15/25 21:40 100 MG Thiamine HCl 100 mg DAILY IV 12/24/24 10:00 01/15/25 10:44 100 MG Folic Acid 1 mg/ Dextrose 50.2 ml @ 200.8 mls/ hr DAILY INJ 12/24/24 10:00 01/15/25 10:43 200.8 MLS/HR Sodium Chloride 10 ml QSHIFT@10,22 IV 12/24/24 22:00 01/15/25 21:47 10 ML Enteral Nutritional Formula 1,000 ml 40ML/HR GT 12/27/24 16:45 01/09/25 21:00 1,000 ML Lactulose 15 ml DAILY PO 12/28/24 10:00 Hold 01/09/25 09:17 15 ML Acetaminophen 625 mg Q8HPRN PRN GT 12/31/24 16:00 01/15/25 08:14 625 MG Fentanyl Citrate 250 ml @ 2.5 mls/hr Q24H IV 01/07/25 19:00 01/15/25 18:37 20 MLS/HR Enoxaparin Sodium 40 mg Q12HP SC 01/10/25 22:00 01/15/25 21:47 40 MG Acetaminophen 650 mg Q8HP PRN GA 01/12/25 14:45 Hold Propofol 100 ml @ 4.038 mls/ hr Q24H IV 01/12/25 16:15 01/15/25 23:07 40.38 MLS/HR Furosemide 40 mg BIDD IV 01/15/25 18:00 01/15/25 18:32 40 MG objective Gen.: Patient lying in bed in medical ICU. Sedated, intubated on mechanical ventilator. Head: Normocephalic, atraumatic. Eyes: PERRLA. Ears: Normal external anatomy. Throat: Endotracheal tube and orogastric tube in place. Neck: Supple, trachea midline. Chest: Transmitted breath sounds bilaterally. Decreased air entry bilaterally. No wheezing. Bibasilar crackles. Cardiovascular: Positive S1, positive S2. Regular rate and rhythm. Abdomen: Positive bowel sounds in all 4 quadrants. Soft, nontender, nondistended. : Reed in place. Normal external genitalia. Rectal: Deferred. Skin: Warm, dry. Intact. Extremities: 2+ radial pulses bilaterally. No lower extremity edema. Neuro: Sedated. laboratory and microbiology Laboratory Tests 01/15/25 03:10 Test 01/15/25 03:10 Range/Units Serum Glucose 89 74-106 mg/dL Assessment/Plan Impression: Acute hypoxic respiratory failure On mechanical ventilator S/p tracheostomy Seizures Substance abuse (cocaine, Ecstasy) ? Aspiration pneumonia Morbid obesity, BMI 49.2 Plan: On mechanical ventilator. S/p tracheostomy On AC mode; RR 20, VT 550, PEEP 5, FiO2 30% ABG reviewed, compensated CXR reveals interstitial opacities. Continue diuresis. Trach care Pulmonary toileting Titrate FIO2 to keep O2 saturation above 90%. Sedate for ventilator synchrony - on Fentanyl, Versed, Propofol. Tube feeds for nutritional support Continue bronchodilators Mucomyst Continue antibiotics Antiepileptic - Keppra Diurese with Lasix Monitor renal function Monitor electrolytes. Supplement as necessary. Supplement 2 g magnesium Monitor ins and outs. Maintain euvolemia. Tube feeds for nutritional support Updated mother at bedside. Diet and lifestyle modifications for weight reduction Morbid obesity - complicates all care GI prophylaxis - Protonix DVT prophylaxis - Lovenox q.12 h. Prognosis: Poor given patient's multiple co-morbidities. Condition: Critical Rest of plan per hospitalist and other consultants. A total of 35 minutes of critical care time was spent reviewing the patient record, examining the patient, making a diagnostic and therapeutic plan, discussing this plan with the medical personnel, following up on diagnostic studies and following the patient for clinical stability excluding any and all procedures. At least 50% of this time was spent in direct, [id number] contact. Thank you, ANNALISE Wall, for allowing me to participate in this patient's care. Further recommendations will depend on the patient's clinical course. Please do not hesitate to contact me if you have any questions or concerns. This medical document was created using an electronic medical record system with [employer] dictation system. Although these documentations are being carefully reviewed, there may still be some phonetic and typographical changes. The errors are purely typographical, due to imperfection on the software program, and do not reflect any compromise in the patient's medical care. Dietary Evaluation Review Comments: 1) Continue TPN to meet at least 75% estimated needs 2) TF Vital High Protein @ 60ml/hr(goal) with current rate of propofol. TF at goal volume together with propofol provides 2471 kcal (100% eenrgy needs) & 126 gm protein (100% protein needs) 3) Monitor TPN tolerance, lab values, I/O, wt trend Expected Outcomes/Goals: To meet >75% estimated needs Fu 2-3 days Plan discussed with: Other (DANNY Adame) Critical Care Time(min): 35 BRONSON SY MD Jan 15, 2025 23:27
[2025-01-16] VITALS (105 sets, daily range): BP systolic 98–155; BP diastolic 49–95; PULSE 53–96; RESP 17–25; TEMP 98.4–98.9; O2SAT 94–100
[2025-01-16 04:32] LABS: Hematocrit 34.1 % (41.0-53.0); Hemoglobin 11.8 g/dL (13.5-17.5); Mean Corpuscular Hemoglobin 30.0 pg (28.0-32.0); Mean Corpuscular Volume 86.7 fL (80.0-100.0); Nucleated Red Blood Cells % 0.0 %
[2025-01-16 05:08] LABS: Alanine Aminotransferase 33 U/L (7-40); Albumin 4.8 g/dL (3.2-4.8); Anion Gap 15 (5-15); BUN/Creatinine Ratio 27.5 (10.0-20.0); Bilirubin, Total 0.6 mg/dL (0.2-1.0); Blood Urea Nitrogen 11 mg/dL (9-23); Calcium 9.7 mg/dL (8.7-10.4); Carbon Dioxide 21 mmol/L (20-31); Chloride 103 mmol/L (98-107); Glucose 92 mg/dL (74-106); Magnesium 1.7 mg/dL (1.6-2.6); Sodium 139 mmol/L (136-145); Total Protein 7.9 g/dL (5.7-8.2)
[2025-01-16 05:26] LABS: Alkaline Phosphatase 145 U/L (46-116); Potassium 3.0 mmol/L (3.5-5.1)
[2025-01-16] MEDS: MAGNESIUM SULFATE 1GM/100ML 100 ML IV ONE (06:29)
[2025-01-16] MEDS: POTASSIUM CHL 20MEQ/100ML 100 ML IV SCH ×2 (06:29→19:20)
[2025-01-16 07:25] LABS: Base Excess -1.8 mmol/L (-2.0-3.0)
--- NOTE | 2025-01-16 08:45 | DVH ---
CHEST RADIOGRAPH Indication: ON VENT Technique: Single frontal view of the chest was obtained COMPARISON: XY CHEST PORTABLE on DOS: 01/15/25, XY CHEST PORTABLE on DOS: 01/14/25, XY CHEST XRAY 1 VIEW on DOS: 01/14/25, XY CHEST XRAY 1 VIEW on DOS: 01/13/25, XY CHEST PORTABLE on DOS: 01/12/25 FINDINGS: Lines and Tubes: Tracheostomy and enteric catheter and right PICC in satisfactory position. Lungs: Congestion Pleura: No effusion. No pneumothorax. Cardiomediastinal contours: Cardiomegaly Bones: Unremarkable IMPRESSION: Lines and tubes in satisfactory position. No significant interval change.
--- NOTE | 2025-01-16 15:57 | DVHPN2 ---
Progress Note - Dictate Date Seen: Jan 16, 2025 Medical Necessity Reason Pt with a Central, PICC or Fol: Yes The following are medically ne: PICC Line, Reed Catheter Reason for reed catheter: Strict I&O Subjective Mr. Perry is a 24 years old right-handed gentleman with a history of hypertension, pain syndrome, substance abuse, he was admitted to the [facility] on 12/17/2024 for new onset seizure activity. I have seen and examined the patient, discussed with his nurses, mother in the room. He is better, awake, follows verbal commands, has social smells, but overall is still weak He is status post tracheostomy (01/12/2025), status post PEG tube (01/14/2025) Fentanyl 275 mcg/hour, Versed 8 mg/hour, propofol 45 mcg/min Blood culture, 12/25/2024: No growth Sputum culture, 12/25/2024: Staphylococcus aureus Urine culture, 01/04/2025: Urinalysis, 12/17/2024: Unremarkable Urine drug screening, 12/17/2024: Benzo Valproic acid, 12/17/2024: 22.1 Plasma alcohol, 12/17/2024: <3 ABG, 12/18/2024: Respiratory acidosis, 12/20/2024: Acidosis, 12/22/2024: Hypoxia, 12/24/2024: Hypoxia, carbon dioxide retention, 12/25/2024: Hypoxia, carbon dioxide retention, 12/29/2024: Hypoxia, carbon dioxide retention WBC/HB/PLT/MCV, 12/20/2024: 8/12.4/233/90.4 CMP 12/18/2024: Unremarkable TBI/AST/ALT/AP, 12/20/2024: 0.7/44/45/143 EEG, 12/19/2019 10/26/24 13:15: Normal EEG, 12/23/2024: Moderately abnormal EEG Bronchoscopy 01/12/25: There were copious blood tinged secretions in the airways bilaterally Chest x-ray 12/18/2024: Endotracheal tube 0.7 cm above the rogers. Nasogastric tube in the proximal stomach Chest x-ray, 12/27/2024: 1. Stable mild multifocal bilateral pulmonary airspace disease, most notably at the lung bases. 2. Lines and tubes unchanged Chest x-ray, 12/29/2024: 1. Stable cardiomegaly, bilateral pleural effusions and moderate diffuse increased prominence of the pulmonary vasculature. 2. Right basilar pulmonary airspace disease. 3. Interval retraction of endotracheal tube as above. Remaining lines and tubes unchanged Chest x-ray, : Lines and tubes in satisfactory position. No significant interval change. CT head, 12/17/2024: No evidence of acute intracranial abnormality. If symptoms persist, consider MRI for further evaluation MR head, 12/21/2024: No evidence of acute infarction, intracranial hemorrhage, mass effect or hydrocephalus. No evidence of mesial temporal sclerosis. Pansinusitis. Prominent bilateral cervical lymph nodes. This can be further evaluated with ultrasound vital signs Vital Sign Date Time Temp Pulse Resp B/P (MAP) Pulse Ox O2 Delivery O2 Flow Rate FiO2 01/16/25 15:42 62 20 132/75 (94) 100 30 01/16/25 14:00 Mechanical Ventilator+ 01/16/25 12:00 98.6 98.6 01/14/25 20:30 30.0 Total Intake and Output 01/15/25 01/15/25 01/16/25 15:00 23:00 07:00 Intake Total 774.4 ml 1039.10 ml 787.04 ml Output Total 1250 ml 475 ml 1075 ml Balance -475.6 ml 564.10 ml -287.96 ml medications Current Medications Medications Dose Ordered Sig/Rick Route Start Time Stop Time Status Last Admin Dose Admin Lorazepam 1 mg Q5MINP PRN IV 12/18/24 11:00 12/23/24 08:43 1 MG Midazolam HCl 50 ml @ 1 mls/hr Q24H IV 12/18/24 21:15 01/16/25 03:56 7 MLS/HR Diagnostic Test (Pha) 1 strip Q6HR 12/19/24 12:00 01/16/25 12:12 1 STRIP Insulin Human Regular FOLLOW SLIDING SCALE Q6HR SC 12/19/24 12:00 01/12/25 18:29 2 UNITS Dextrose 50 ml UD IV 12/19/24 10:00 12/22/24 23:25 50 ML Albuterol 2.5 mg Q6HR NEB 12/19/24 18:00 01/16/25 11:48 2.5 MG Ipratropium [place] 0.5 mg Q6HR NEB 12/19/24 18:00 01/16/25 11:48 0.5 MG Pantoprazole Sodium 40 mg DAILY IV 12/21/24 10:00 01/16/25 09:38 40 MG Polyethylene Glycol 17 gm DAILY PO 12/22/24 10:00 Hold 01/07/25 09:44 17 GM Docusate Sodium 100 mg BID GT 12/22/24 10:00 01/16/25 09:37 100 MG Thiamine HCl 100 mg DAILY IV 12/24/24 10:00 01/16/25 09:38 100 MG Folic Acid 1 mg/ Dextrose 50.2 ml @ 200.8 mls/ hr DAILY INJ 12/24/24 10:00 01/16/25 09:38 200.8 MLS/HR Sodium Chloride 10 ml QSHIFT@10,22 IV 12/24/24 22:00 01/16/25 09:38 10 ML Enteral Nutritional Formula 1,000 ml 40ML/HR GT 12/27/24 16:45 01/09/25 21:00 1,000 ML Lactulose 15 ml DAILY PO 12/28/24 10:00 Hold 01/09/25 09:17 15 ML Acetaminophen 625 mg Q8HPRN PRN GT 12/31/24 16:00 01/15/25 08:14 625 MG Fentanyl Citrate 250 ml @ 2.5 mls/hr Q24H IV 01/07/25 19:00 01/16/25 06:21 20 MLS/HR Enoxaparin Sodium 40 mg Q12HP SC 01/10/25 22:00 01/16/25 09:38 40 MG Acetaminophen 650 mg Q8HP PRN IN 01/12/25 14:45 Hold Propofol 100 ml @ 4.038 mls/ hr Q24H IV 01/12/25 16:15 01/16/25 08:47 40.38 MLS/HR Furosemide 40 mg BIDD IV 01/15/25 18:00 01/16/25 05:56 40 MG objective The patient is well-nourished and well-developed with no distress. The patient is status post tracheostomy, feeding tube insertion MENTAL STATUS: Subjective CRANIAL NERVES: Pupils are equal, round and reactive. There is conjugated eye movement. Sensorimotor examined in bilateral trigeminal distribution is unremarkable, no facial weakness SENSATION: Okay to pinprick and light touch MOTOR: Normal tone in the upper and lower extremity. Normal muscle bulk. No fasciculations. He can move the arms and legs REFLEXES: Deep tendon reflexes are symmetrical. No pathological reflexes. CEREBELLAR/COORDINATION: Deferred GAIT/STATION: deferred laboratory and microbiology Laboratory Tests 01/16/25 03:15 Test 01/16/25 03:15 Range/Units Serum Glucose 92 74-106 mg/dL Problem List Come, resolved Metabolic encephalopathy Hypoxic encephalopathy Toxic encephalopathy ? Status epileptics New onset seizure, status epileptics Likely secondary to substance abuse Rule out epileptic seizure or other acute symptomatic seizure The activity witnessed on 12/23/2024 was not typical to seizure, likely myoclonus Substance abuse ? Depression Respiratory failure/hypoxia, status post tracheostomy Pneumonia Dysphagia/status post feeding tube insertion Overall he keeps improving Assessment/Plan Monitoring Supportive treatment Telemetry Follow-up lab ICU care Stabilize vitals Respiratory support/vent management Ativan for seizure breakthrough Need history from him directly Consider tele psych consultation Re: The previous substance abuse later Tube feeding More recommendation per clinical course This medical document was created using an electronic medical record system with [employer] computerized dictation system. Although this document has been carefully reviewed, there may still be some phonetic and typographical errors. These areas are purely typographical due to imperfections of the software programs, and do not reflect any compromise in the patient's medical care. Prognosis poor Dietary Evaluation Review Comments: 1) Continue TPN to meet at least 75% estimated needs 2) TF Vital High Protein @ 60ml/hr(goal) with current rate of propofol. TF at goal volume together with propofol provides 2471 kcal (100% eenrgy needs) & 126 gm protein (100% protein needs) 3) Monitor TPN tolerance, lab values, I/O, wt trend Expected Outcomes/Goals: To meet >75% estimated needs Fu 2-3 days Plan discussed with: Other BONNY PEREZ MD Jan 16, 2025 15:57
--- NOTE | 2025-01-16 16:52 | DVHPN2 ---
Progress Note Date Seen: Jan 16, 2025 Medical Necessity Reason Pt with a Central, PICC or Fol: Yes The following are medically ne: PICC Line, Reed Catheter Reason for reed catheter: Strict I&O Subjective Patient reports: No new complaints, Other (Patient is intubated and sedated. Patient voided over 4 L after change Lasix from 40 mg b.i.d. to 80 mg b.i.d. be monitor urine output with the current dose of Lasix) Changes from previous H/P or p: No Changes Objective vital signs Vital Sign Date Time Temp Pulse Resp B/P (MAP) Pulse Ox O2 Delivery O2 Flow Rate FiO2 01/16/25 16:30 69 20 134/75 (94) 100 01/16/25 16:00 Mechanical Ventilator+ 30 30 01/16/25 12:00 98.6 98.6 01/14/25 20:30 30.0 Total Intake and Output 01/15/25 01/15/25 01/16/25 15:00 23:00 07:00 Intake Total 774.4 ml 1039.10 ml 787.04 ml Output Total 1250 ml 475 ml 1075 ml Balance -475.6 ml 564.10 ml -287.96 ml medications Current Medications Medications Dose Ordered Sig/Rick Route Start Time Stop Time Status Last Admin Dose Admin Lorazepam 1 mg Q5MINP PRN IV 12/18/24 11:00 12/23/24 08:43 1 MG Midazolam HCl 50 ml @ 1 mls/hr Q24H IV 12/18/24 21:15 01/16/25 03:56 7 MLS/HR Diagnostic Test (Pha) 1 strip Q6HR 12/19/24 12:00 01/16/25 12:12 1 STRIP Insulin Human Regular FOLLOW SLIDING SCALE Q6HR SC 12/19/24 12:00 01/12/25 18:29 2 UNITS Dextrose 50 ml UD IV 12/19/24 10:00 12/22/24 23:25 50 ML Albuterol 2.5 mg Q6HR NEB 12/19/24 18:00 01/16/25 11:48 2.5 MG Ipratropium [place] 0.5 mg Q6HR NEB 12/19/24 18:00 01/16/25 11:48 0.5 MG Pantoprazole Sodium 40 mg DAILY IV 12/21/24 10:00 01/16/25 09:38 40 MG Polyethylene Glycol 17 gm DAILY PO 12/22/24 10:00 Hold 01/07/25 09:44 17 GM Docusate Sodium 100 mg BID GT 12/22/24 10:00 01/16/25 09:37 100 MG Thiamine HCl 100 mg DAILY IV 12/24/24 10:00 01/16/25 09:38 100 MG Folic Acid 1 mg/ Dextrose 50.2 ml @ 200.8 mls/ hr DAILY INJ 12/24/24 10:00 01/16/25 09:38 200.8 MLS/HR Sodium Chloride 10 ml QSHIFT@10,22 IV 12/24/24 22:00 01/16/25 09:38 10 ML Enteral Nutritional Formula 1,000 ml 40ML/HR GT 12/27/24 16:45 01/09/25 21:00 1,000 ML Lactulose 15 ml DAILY PO 12/28/24 10:00 Hold 01/09/25 09:17 15 ML Acetaminophen 625 mg Q8HPRN PRN GT 12/31/24 16:00 01/15/25 08:14 625 MG Fentanyl Citrate 250 ml @ 2.5 mls/hr Q24H IV 01/07/25 19:00 01/16/25 06:21 20 MLS/HR Enoxaparin Sodium 40 mg Q12HP SC 01/10/25 22:00 01/16/25 09:38 40 MG Acetaminophen 650 mg Q8HP PRN [place] 01/12/25 14:45 Hold Propofol 100 ml @ 4.038 mls/ hr Q24H IV 01/12/25 16:15 01/16/25 08:47 40.38 MLS/HR Furosemide 40 mg BIDD IV 01/15/25 18:00 01/16/25 05:56 40 MG Examination Patient is a 24 years old male, morbidly obese, intubated and sedated HEENT-atraumatic, normocephalic Heart-regular rate and rhythm Lungs decreased breath sounds bilaterally due to body habitus Abdomen soft nontender nondistended Musculoskeletal-no edema cyanosis Neuro-intubated and sedated laboratory and microbiology Laboratory Tests 01/16/25 03:15 Test 01/16/25 03:15 Range/Units Serum Glucose 92 74-106 mg/dL Microbiology Date/Time Source Procedure Growth Status 01/04/25 18:35 Blood Blood Culture - Final NO GROWTH AFTER 5 DAYS OF INCUBATION. Complete 01/04/25 18:15 Sputum Gram Stain - Final Complete 01/04/25 18:15 Respiratory Culture - Final Staphylococcus aureus Complete 01/04/25 17:00 Urine - Reed [place] Urine Culture - Final Complete 12/25/24 15:20 Catheter Site Aerobic Culture - Final Staphylococcus epidermidis Complete Problem List/Assessment/Plan Problem List/Assessment/Plan Neurology # Acute toxic/metabolic encephalopathy with new-onset or breakthrough generalized seizures, likely multifactorial: # Medication nonadherence (valproic acid level 22.1, subtherapeutic) # Possible alcohol withdrawal (CIWA not assessable due to sedation) # Substance abuse (notably nitrous oxide) - Current sedation:Versed 8 mcg/kg/min, Fentanyl 200 mcg/hr, Propofol 50 mcg/kg/min-coming down from sedation - Seizure management as below - Versed - IV levetiracetam 1500 mg BID - IV lorazepam PRN - Last seizure on 12/23/2024 - EEG: Largely unremarkable - Head CT & Brain MRI: No acute findings; MRI showed pansinusitis and prominent cervical lymphadenopathy - Supportive care: Received IV banana bags x2, thiamine, and folic acid - Neurology is on board for ongoing evaluation - daily SBT/SAT Cardiovascular # HTN # Sepsis secondary to aspiration pneumonia - Abx Vancomycin Respiratory # Acute hypoxic respiratory failure secondary to status epilepticus, intubated on 12/18/2024. # Probable aspiration pneumonia with MSSA isolated in both blood and respiratory cultures. # Pulmonary edema improving. # Bilateral pleural effusions noted on imaging. # Pulmonary embolism ruled out (CT angiography ordered; no DVT on Doppler). - On mechanical ventilation: VC-AC mode, RR 20, TV 550 mL, PEEP 5, FiO? 40%. Through size 8 tracheostomy tube which placed - Receiving ipratropium and albuterol nebulizers. - CXR: Hypoinflated lungs with bibasilar atelectasis; 12/29 CXR showed stable cardiomegaly, bilateral effusions, and right basilar airspace disease. - Antibiotics: IV Zosyn started 12/21, discontinued 01/09 - IV Vancomycin started 12/23, stopped 12/24, resumed 12/27. Completed coures of abx. discontinue - IV lasix 40mg bid to 80 mg iv bid - UO > 4L. - Therapeutic Lovenox initiated, later discontinued. - Repeat blood and sputum cultures confirmed MSSA. GI # Transaminitis-improving # Peptic ulcer prophylaxis # Vitamin B12 deficiency # Constipation, likely slow transit, relieved by lactose,MiraLax& Colace -Pantoprazole 40 mg IV daily - negative hepatitis-B and hepatitis-C - repleted with 1000 mcg B12 - lactulose daily - KUB: Nonobstructive bowel gas pattern. Moderate stool burden. - diet is Vital AF 40 mL # morbid obesity with a BMI 50.3 -nutritional counseling after extubation # Reed catheter changed on 01/04/2025 Nephrology # hypernatremia, now improved # hypokalemia, now improved # hypomagnesemia # Rhabdomyolysis-improving - serum CK - monitor -keep potassium above 4 and magnesium above 2 -replete as needed, continuously monitor lab -avoid nephrotoxic agents ID # aspiration pneumonia # sepsis due to above # right IJ catheter tip (placed on 12/18/2024, removed on 12/24/2024) culture growing staph epidermidis - pancultures - IV Zosyn discontinued on 01/09 - IV vancomycin - Tylenol as needed for fever - s/p bronchoscopy x 2 - repeat blood cultures, repeat sputum cultures, showing staph aureus - DC iv abx. Hem/onc # microcytic anemia, mild - monitor Psychiatry # substance use disorder - we will consider Psychiatry consult once patient is extubated DVT prophylaxis: On Lovenox 40 mg b.i.d. Nutrition: NG start feeds again, Vital AF 40 mL Following up with [facility] for possible transfer. Lines Right PICC placed on 12/24/24 Drips -titrating down on sedation - Versed - fentanyl - propofol Intubated on 12/18/2024 Bronchoscopy on 12/26/24 Repeat bronchoscopy on 12/28/2024 Reed on 01/04/2025 Critical care time 55 minutes excluding procedure. Plan discussed with: Patient My Orders My Orders Orders - TRACY CASTRO MD Procedure Category Date Status Time Furosemide Injection PHA 01/15/25 In Process (Lasix Injection) 18:00 Dietary Evaluation Review Comments: 1) Continue TPN to meet at least 75% estimated needs 2) TF Vital High Protein @ 60ml/hr(goal) with current rate of propofol. TF at goal volume together with propofol provides 2471 kcal (100% eenrgy needs) & 126 gm protein (100% protein needs) 3) Monitor TPN tolerance, lab values, I/O, wt trend Expected Outcomes/Goals: To meet >75% estimated needs Fu 2-3 days Date of Service: Jan 16, 2025 Billing Provider: TRACY CASTRO MD Common Visit Codes: [id number] CARE 30-74 MIN TRACY CASTRO MD Jan 16, 2025 16:52
[2025-01-16 18:06] LABS: Magnesium 1.7 mg/dL (1.6-2.6)
[2025-01-16 18:10] LABS: Potassium 3.1 mmol/L (3.5-5.1)
[2025-01-16] MEDS: MAGNESIUM SULFATE 1GM/100ML 100 ML IV SCH (19:12)
[2025-01-16] MEDS: fentaNYL Drip 2500mCg/250mlNS 250 ML IV SCH (22:30)
--- NOTE | 2025-01-16 23:44 | DVHPN2 ---
Progress Note - Dictate Date Seen: Jan 16, 2025 Medical Necessity Reason Pt with a Central, PICC or Fol: Yes The following are medically ne: PICC Line, Reed Catheter Reason for reed catheter: Strict I&O Subjective Patient seen and examined at bedside. On mechanical ventilator, s/p trach Overnight events reviewed. vital signs Vital Sign Date Time Temp Pulse Resp B/P (MAP) Pulse Ox O2 Delivery O2 Flow Rate FiO2 01/16/25 23:00 68 20 120/69 (86) 97 01/16/25 22:05 30 01/16/25 22:00 Mechanical Ventilator+ 01/16/25 20:00 98.4 98.4 01/14/25 20:30 30.0 Total Intake and Output 01/15/25 01/15/25 01/16/25 15:00 23:00 07:00 Intake Total 774.4 ml 1039.10 ml 787.04 ml Output Total 1250 ml 475 ml 1075 ml Balance -475.6 ml 564.10 ml -287.96 ml medications Current Medications Medications Dose Ordered Sig/Rick Route Start Time Stop Time Status Last Admin Dose Admin Lorazepam 1 mg Q5MINP PRN IV 12/18/24 11:00 12/23/24 08:43 1 MG Midazolam HCl 50 ml @ 1 mls/hr Q24H IV 12/18/24 21:15 01/16/25 17:50 8 MLS/HR Diagnostic Test (Pha) 1 strip Q6HR 12/19/24 12:00 01/16/25 23:31 1 STRIP Insulin Human Regular FOLLOW SLIDING SCALE Q6HR SC 12/19/24 12:00 01/12/25 18:29 2 UNITS Dextrose 50 ml UD IV 12/19/24 10:00 12/22/24 23:25 50 ML Albuterol 2.5 mg Q6HR NEB 12/19/24 18:00 01/16/25 18:31 2.5 MG Ipratropium [place] 0.5 mg Q6HR NEB 12/19/24 18:00 01/16/25 18:32 0.5 MG Pantoprazole Sodium 40 mg DAILY IV 12/21/24 10:00 01/16/25 09:38 40 MG Polyethylene Glycol 17 gm DAILY PO 12/22/24 10:00 Hold 01/07/25 09:44 17 GM Docusate Sodium 100 mg BID GT 12/22/24 10:00 01/16/25 21:30 100 MG Thiamine HCl 100 mg DAILY IV 12/24/24 10:00 01/16/25 09:38 100 MG Folic Acid 1 mg/ Dextrose 50.2 ml @ 200.8 mls/ hr DAILY INJ 12/24/24 10:00 01/16/25 09:38 200.8 MLS/HR Sodium Chloride 10 ml QSHIFT@10,22 IV 12/24/24 22:00 01/16/25 21:29 10 ML Enteral Nutritional Formula 1,000 ml 40ML/HR GT 12/27/24 16:45 01/09/25 21:00 1,000 ML Lactulose 15 ml DAILY PO 12/28/24 10:00 Hold 01/09/25 09:17 15 ML Acetaminophen 625 mg Q8HPRN PRN GT 12/31/24 16:00 01/15/25 08:14 625 MG Enoxaparin Sodium 40 mg Q12HP SC 01/10/25 22:00 01/16/25 21:30 40 MG Acetaminophen 650 mg Q8HP PRN HI 01/12/25 14:45 Hold Propofol 100 ml @ 4.038 mls/ hr Q24H IV 01/12/25 16:15 01/16/25 21:28 32.304 MLS/HR Furosemide 40 mg BIDD IV 01/15/25 18:00 01/16/25 05:56 40 MG Potassium Chloride 100 ml @ 50 mls/hr Q2H IV 01/16/25 18:30 01/17/25 02:29 01/16/25 23:27 50 MLS/HR Fentanyl Citrate 250 ml @ 2.5 mls/hr Q24H IV 01/16/25 22:30 objective Gen.: Patient lying in bed in medical ICU. Sedated, on mechanical ventilator s/p trach. Head: Normocephalic, atraumatic. Eyes: PERRLA. Ears: Normal external anatomy. Throat: Endotracheal tube and orogastric tube in place. Neck: Supple, trachea midline. Chest: Transmitted breath sounds bilaterally. Decreased air entry bilaterally. No wheezing. Bibasilar crackles. Cardiovascular: Positive S1, positive S2. Regular rate and rhythm. Abdomen: Positive bowel sounds in all 4 quadrants. Soft, nontender, nondistended. : Reed in place. Normal external genitalia. Rectal: Deferred. Skin: Warm, dry. Intact. Extremities: 2+ radial pulses bilaterally. No lower extremity edema. Neuro: Sedated. laboratory and microbiology Laboratory Tests 01/16/25 17:32 01/16/25 03:15 Test 01/16/25 03:15 Range/Units Serum Glucose 92 74-106 mg/dL Assessment/Plan Impression: Acute hypoxic respiratory failure On mechanical ventilator S/p tracheostomy Seizures Substance abuse (cocaine, Ecstasy) ? Aspiration pneumonia Morbid obesity, BMI 49.2 Events: Remains on vent support On AC mode; RR 20, VT 550, PEEP 5, FiO2 30% S/p trach Trach care Sedated on Versed, Fentanyl Tube feeds for nutritional support Continue bronchodilators Mucomyst Continue antibiotics Antiepileptic - Keppra Diurese with Lasix Monitor renal function Monitor electrolytes. Supplement as necessary. Supplement magnesium - mag of 1.7 Supplement potassium Labs and imaging reviewed. Rest of plan as noted below. Plan: On mechanical ventilator. S/p tracheostomy On AC mode; RR 20, VT 550, PEEP 5, FiO2 30% Trach care Pulmonary toileting Titrate FIO2 to keep O2 saturation above 90%. Sedate for ventilator synchrony - on Fentanyl, Versed Tube feeds for nutritional support Continue bronchodilators Mucomyst Continue antibiotics Antiepileptic - Keppra Diurese with Lasix Monitor renal function Monitor electrolytes. Supplement as necessary. Monitor ins and outs. Maintain euvolemia. Tube feeds for nutritional support Diet and lifestyle modifications for weight reduction Morbid obesity - complicates all care GI prophylaxis - Protonix DVT prophylaxis - Lovenox q.12 h. Prognosis: Poor given patient's multiple co-morbidities. Condition: Critical Rest of plan per hospitalist and other consultants. A total of 35 minutes of critical care time was spent reviewing the patient record, examining the patient, making a diagnostic and therapeutic plan, discussing this plan with the medical personnel, following up on diagnostic studies and following the patient for clinical stability excluding any and all procedures. At least 50% of this time was spent in direct, [id number] contact. Thank you, ANNALISE Wall, for allowing me to participate in this patient's care. Further recommendations will depend on the patient's clinical course. Please do not hesitate to contact me if you have any questions or concerns. This medical document was created using an electronic medical record system with [employer] dictation system. Although these documentations are being carefully reviewed, there may still be some phonetic and typographical changes. The errors are purely typographical, due to imperfection on the software program, and do not reflect any compromise in the patient's medical care. Dietary Evaluation Review Comments: 1) Continue TPN to meet at least 75% estimated needs 2) TF Vital High Protein @ 60ml/hr(goal) with current rate of propofol. TF at goal volume together with propofol provides 2471 kcal (100% eenrgy needs) & 126 gm protein (100% protein needs) 3) Monitor TPN tolerance, lab values, I/O, wt trend Expected Outcomes/Goals: To meet >75% estimated needs Fu 2-3 days Plan discussed with: Other (DANNY Chin) Critical Care Time(min): 35 BRONSON SY MD Jan 16, 2025 23:44
[2025-01-17] VITALS (110 sets, daily range): BP systolic 109–160; BP diastolic 51–97; PULSE 61–120; RESP 14–31; TEMP 97.9–99; O2SAT 94–100
[2025-01-17 07:45] LABS: Base Excess -3.1 mmol/L (-2.0-3.0)
--- NOTE | 2025-01-17 08:42 | DVH ---
CHEST RADIOGRAPH Indication: f/u Technique: Single frontal view of the chest was obtained Comparison: XY CHEST PORTABLE on DOS: 01/16/25, XY CHEST PORTABLE on DOS: 01/15/25, XY CHEST PORTABLE on DOS: 01/14/25, XY CHEST XRAY 1 VIEW on DOS: 01/14/25, XY CHEST XRAY 1 VIEW on DOS: 01/13/25 FINDINGS: Lines and Tubes: Tracheostomy and enteric catheter and right PICC in satisfactory position. Lungs: Congestion Pleura: No effusion. No pneumothorax. Cardiomediastinal contours: Cardiomegaly Bones: Unremarkable IMPRESSION: Lines and tubes in satisfactory position. No significant interval change.
[2025-01-17 10:10] LABS: Chloride 102 mmol/L (98-107); Potassium 4.1 mmol/L (3.5-5.1); Sodium 139 mmol/L (136-145)
[2025-01-17 10:11] LABS: Anion Gap 14 (5-15); Calcium 10.3 mg/dL (8.7-10.4); Carbon Dioxide 23 mmol/L (20-31); Hematocrit 39.7 % (41.0-53.0); Hemoglobin 13.2 g/dL (13.5-17.5); Mean Corpuscular Hemoglobin 29.4 pg (28.0-32.0); Mean Corpuscular Volume 88.4 fL (80.0-100.0)
[2025-01-17 10:16] LABS: BUN/Creatinine Ratio 19.2 (10.0-20.0); Blood Urea Nitrogen 10 mg/dL (9-23); Glucose 83 mg/dL (74-106); Magnesium 1.6 mg/dL (1.6-2.6)
--- NOTE | 2025-01-17 10:29 | DVHPN2 ---
Progress Note - Dictate Date Seen: Jan 17, 2025 Medical Necessity Reason Pt with a Central, PICC or Fol: Yes The following are medically ne: PICC Line, Reed Catheter Reason for reed catheter: Strict I&O Subjective Mr. Perry is a 24 years old right-handed gentleman with a history of hypertension, pain syndrome, substance abuse, he was admitted to the [facility] on 12/17/2024 for new onset seizure activity. I have seen and examined the patient, discussed with his nurses and respiratory therapist, his sitter is in the room. He keeps improving, awake, follows verbal commands, he smiles socially, he moves the arms and legs He is status post tracheostomy (01/12/2025), status post PEG tube (01/14/2025) Fentanyl 100 mcg/hour, Versed 8 mg/hour, propofol 10 mcg/min, Precedex 0.7 mcg/kg/hour Blood culture, 12/25/2024: No growth Sputum culture, 12/25/2024: Staphylococcus aureus Urine culture, 01/04/2025: Urinalysis, 12/17/2024: Unremarkable Urine drug screening, 12/17/2024: Benzo Valproic acid, 12/17/2024: 22.1 Plasma alcohol, 12/17/2024: <3 ABG, 12/18/2024: Respiratory acidosis, 12/20/2024: Acidosis, 12/22/2024: Hypoxia, 12/24/2024: Hypoxia, carbon dioxide retention, 12/25/2024: Hypoxia, carbon dioxide retention, 12/29/2024: Hypoxia, carbon dioxide retention WBC/HB/PLT/MCV, 12/20/2024: 8/12.4/233/90.4 CMP 12/18/2024: Unremarkable TBI/AST/ALT/AP, 12/20/2024: 0.7/44/45/143 EEG, 12/19/2019 10/26/24 13:15: Normal EEG, 12/23/2024: Moderately abnormal EEG Bronchoscopy 01/12/25: There were copious blood tinged secretions in the airways bilaterally Chest x-ray 12/18/2024: Endotracheal tube 0.7 cm above the rogers. Nasogastric tube in the proximal stomach Chest x-ray, 12/27/2024: 1. Stable mild multifocal bilateral pulmonary airspace disease, most notably at the lung bases. 2. Lines and tubes unchanged Chest x-ray, 12/29/2024: 1. Stable cardiomegaly, bilateral pleural effusions and moderate diffuse increased prominence of the pulmonary vasculature. 2. Right basilar pulmonary airspace disease. 3. Interval retraction of endotracheal tube as above. Remaining lines and tubes unchanged Chest x-ray, : Lines and tubes in satisfactory position. No significant interval change. CT head, 12/17/2024: No evidence of acute intracranial abnormality. If symptoms persist, consider MRI for further evaluation MR head, 12/21/2024: No evidence of acute infarction, intracranial hemorrhage, mass effect or hydrocephalus. No evidence of mesial temporal sclerosis. Pansinusitis. Prominent bilateral cervical lymph nodes. This can be further evaluated with ultrasound vital signs Vital Sign Date Time Temp Pulse Resp B/P (MAP) Pulse Ox O2 Delivery O2 Flow Rate FiO2 01/17/25 09:50 85 20 149/80 (103) 97 30 01/17/25 08:00 98.6 98.6 01/17/25 08:00 Mechanical Ventilator+ Total Intake and Output 01/16/25 01/16/25 01/17/25 15:00 23:00 07:00 Intake Total 608.274 ml 1080.980 ml 882.872 ml Output Total 1125 ml 600 ml Balance 608.274 ml -44.020 ml 282.872 ml medications Current Medications Medications Dose Ordered Sig/Rick Route Start Time Stop Time Status Last Admin Dose Admin Lorazepam 1 mg Q5MINP PRN IV 12/18/24 11:00 12/23/24 08:43 1 MG Midazolam HCl 50 ml @ 1 mls/hr Q24H IV 12/18/24 21:15 01/17/25 04:54 8 MLS/HR Diagnostic Test (Pha) 1 strip Q6HR 12/19/24 12:00 01/17/25 05:37 1 STRIP Insulin Human Regular FOLLOW SLIDING SCALE Q6HR SC 12/19/24 12:00 01/12/25 18:29 2 UNITS Dextrose 50 ml UD IV 12/19/24 10:00 12/22/24 23:25 50 ML Albuterol 2.5 mg Q6HR NEB 12/19/24 18:00 01/17/25 06:26 2.5 MG Ipratropium [place] 0.5 mg Q6HR NEB 12/19/24 18:00 01/17/25 06:26 0.5 MG Pantoprazole Sodium 40 mg DAILY IV 12/21/24 10:00 01/16/25 09:38 40 MG Polyethylene Glycol 17 gm DAILY PO 12/22/24 10:00 Hold 01/07/25 09:44 17 GM Docusate Sodium 100 mg BID GT 12/22/24 10:00 01/16/25 21:30 100 MG Thiamine HCl 100 mg DAILY IV 12/24/24 10:00 01/16/25 09:38 100 MG Folic Acid 1 mg/ Dextrose 50.2 ml @ 200.8 mls/ hr DAILY INJ 12/24/24 10:00 01/16/25 09:38 200.8 MLS/HR Sodium Chloride 10 ml QSHIFT@10,22 IV 12/24/24 22:00 01/16/25 21:29 10 ML Enteral Nutritional Formula 1,000 ml 40ML/HR GT 12/27/24 16:45 01/09/25 21:00 1,000 ML Lactulose 15 ml DAILY PO 12/28/24 10:00 Hold 01/09/25 09:17 15 ML Acetaminophen 625 mg Q8HPRN PRN GT 12/31/24 16:00 01/15/25 08:14 625 MG Enoxaparin Sodium 40 mg Q12HP SC 01/10/25 22:00 01/16/25 21:30 40 MG Acetaminophen 650 mg Q8HP PRN AK 01/12/25 14:45 Hold Propofol 100 ml @ 4.038 mls/ hr Q24H IV 01/12/25 16:15 01/17/25 04:54 32.304 MLS/HR Furosemide 40 mg BIDD IV 01/15/25 18:00 01/17/25 05:37 40 MG Fentanyl Citrate 250 ml @ 2.5 mls/hr Q24H IV 01/16/25 22:30 01/17/25 01:56 25 MLS/HR objective The patient is well-nourished and well-developed with no distress. The patient is status post tracheostomy, feeding tube insertion MENTAL STATUS: Subjective CRANIAL NERVES: Pupils are equal, round and reactive. There is conjugated eye movement. Sensorimotor examined in bilateral trigeminal distribution is unremarkable, no facial weakness SENSATION: Okay to pinprick and light touch MOTOR: Normal tone in the upper and lower extremity. Normal muscle bulk. No fasciculations. He can move the arms and legs REFLEXES: Deep tendon reflexes are symmetrical. No pathological reflexes. CEREBELLAR/COORDINATION: Deferred GAIT/STATION: deferred laboratory and microbiology Laboratory Tests 01/17/25 09:30 Test 01/17/25 09:30 Range/Units Serum Glucose 83 74-106 mg/dL Problem List Come, resolved Metabolic encephalopathy Hypoxic encephalopathy Toxic encephalopathy ? Status epileptics New onset seizure, status epileptics Likely secondary to substance abuse Rule out epileptic seizure or other acute symptomatic seizure The activity witnessed on 12/23/2024 was not typical to seizure, likely myoclonus Substance abuse ? Depression Respiratory failure/hypoxia, status post tracheostomy Pneumonia ICU myopathy Dysphagia/status post feeding tube insertion Overall he keeps improving Assessment/Plan Monitoring Supportive treatment Telemetry Follow-up lab ICU care Stabilize vitals Respiratory support/vent management Ativan for seizure breakthrough Need history from him directly Consider tele psych consultation Re: The previous substance abuse later More recommendation per clinical course This medical document was created using an electronic medical record system with [employer] computerized dictation system. Although this document has been carefully reviewed, there may still be some phonetic and typographical errors. These areas are purely typographical due to imperfections of the software programs, and do not reflect any compromise in the patient's medical care. Prognosis guarded Dietary Evaluation Review Comments: 1) Continue TPN to meet at least 75% estimated needs 2) TF Vital High Protein @ 60ml/hr(goal) with current rate of propofol. TF at goal volume together with propofol provides 2471 kcal (100% eenrgy needs) & 126 gm protein (100% protein needs) 3) Monitor TPN tolerance, lab values, I/O, wt trend Expected Outcomes/Goals: To meet >75% estimated needs Fu 2-3 days Plan discussed with: BONNY Biggs MD Jan 17, 2025 10:29
[2025-01-17 11:10] LABS: Total Cells Counted 100.0 (100)
[2025-01-17] MEDS: MAGNESIUM SULFATE 1GM/100ML 100 ML IV SCH (13:00)
--- NOTE | 2025-01-17 16:54 | DVHPNRES ---
Progress Note Date Seen: Jan 17, 2025 Resident Creating Document: AC GRIFFITH RESIDENT Medical Necessity Reason Pt with a Central, PICC or Fol: Yes The following are medically ne: PICC Line, Reed Catheter Reason for reed catheter: Strict I&O Subjective Review of Systems Mr. Lynn is a 24-year-old male with hypertension, chronic pain, and substance abuse disorder was admitted after new-onset seizures, reportedly due to heavy nitrous oxide use. He was intubated on 12/18/2024 following status epilepticus and placed on multiple sedatives including propofol, Versed, and fentanyl. A right IJ central line and OG tube were placed with difficulty due to body habitus. He was transferred to the ICU and maintained on deep sedation. Patient seen and examined at the bedside. Unable to obtain ROS due to patient's clinical status. Titrating down on sedation, for going to try trach collar tomorrow. Currently receiving Lasix 40 mg IV b.i.d., we will changed to daily once from tomorrow. Patient reports: Feels better Objective vital signs Vital Sign Date Time Temp Pulse Resp B/P (MAP) Pulse Ox O2 Delivery O2 Flow Rate FiO2 01/17/25 15:45 89 20 141/78 (99) 96 01/17/25 14:00 Mechanical Ventilator+ 30 30 01/17/25 12:00 98.4 98.4 Total Intake and Output 01/16/25 01/16/25 01/17/25 15:00 23:00 07:00 Intake Total 608.274 ml 1080.980 ml 882.872 ml Output Total 1125 ml 600 ml Balance 608.274 ml -44.020 ml 282.872 ml medications Current Medications Medications Dose Ordered Sig/Rick Route Start Time Stop Time Status Last Admin Dose Admin Lorazepam 1 mg Q5MINP PRN IV 12/18/24 11:00 12/23/24 08:43 1 MG Midazolam HCl 50 ml @ 1 mls/hr Q24H IV 12/18/24 21:15 01/17/25 10:37 7 MLS/HR Diagnostic Test (Pha) 1 strip Q6HR 12/19/24 12:00 01/17/25 12:17 1 STRIP Insulin Human Regular FOLLOW SLIDING SCALE Q6HR SC 12/19/24 12:00 01/12/25 18:29 2 UNITS Dextrose 50 ml UD IV 12/19/24 10:00 12/22/24 23:25 50 ML Albuterol 2.5 mg Q6HR NEB 12/19/24 18:00 01/17/25 11:32 2.5 MG Ipratropium [place] 0.5 mg Q6HR NEB 12/19/24 18:00 01/17/25 11:32 0.5 MG Pantoprazole Sodium 40 mg DAILY IV 12/21/24 10:00 01/17/25 10:22 40 MG Polyethylene Glycol 17 gm DAILY PO 12/22/24 10:00 Hold 01/07/25 09:44 17 GM Docusate Sodium 100 mg BID GT 12/22/24 10:00 01/17/25 10:22 100 MG Thiamine HCl 100 mg DAILY IV 12/24/24 10:00 01/17/25 10:22 100 MG Folic Acid 1 mg/ Dextrose 50.2 ml @ 200.8 mls/ hr DAILY INJ 12/24/24 10:00 01/17/25 10:23 200.8 MLS/HR Sodium Chloride 10 ml QSHIFT@10,22 IV 12/24/24 22:00 01/17/25 10:22 10 ML Enteral Nutritional Formula 1,000 ml 40ML/HR GT 12/27/24 16:45 01/09/25 21:00 1,000 ML Lactulose 15 ml DAILY PO 12/28/24 10:00 Hold 01/09/25 09:17 15 ML Acetaminophen 625 mg Q8HPRN PRN GT 12/31/24 16:00 01/15/25 08:14 625 MG Enoxaparin Sodium 40 mg Q12HP SC 01/10/25 22:00 01/17/25 10:23 40 MG Acetaminophen 650 mg Q8HP PRN SD 01/12/25 14:45 Hold Propofol 100 ml @ 4.038 mls/ hr Q24H IV 01/12/25 16:15 01/17/25 04:54 32.304 MLS/HR Furosemide 40 mg BIDD IV 01/15/25 18:00 01/17/25 05:37 40 MG Fentanyl Citrate 250 ml @ 2.5 mls/hr Q24H IV 01/16/25 22:30 01/17/25 12:16 20 MLS/HR Examination Pt is lying on bed, RASS -2 to -1 General Appearance: Sedated and mechanically ventilated obese adult HEENT: Atraumatic, Mucous membranes moist/pink, tracheostomy tube in place Respiratory: Coarse bilateral breath sounds, improved, vent settings RR 20, VT 550, FiO2 30%, PEEP 5 Cardiovascular: Regular rate, Normal S1, Normal S2, No murmurs Abdominal: Active bowel sounds, Soft, no distention, Extremities: No edema, Normal pulses, No tenderness/swelling Skin: No Significant rash, except past surgical scars Neuro: Reactive pupils, gag reflex intact Psych/Mental Status: Mental status NL, Mood NL Nurse was there as counseling program leader during examination laboratory and microbiology Laboratory Tests 01/17/25 09:30 Test 01/17/25 09:30 Range/Units Serum Glucose 83 74-106 mg/dL Microbiology Date/Time Source Procedure Growth Status 01/04/25 18:35 Blood Blood Culture - Final NO GROWTH AFTER 5 DAYS OF INCUBATION. Complete 01/04/25 18:15 Sputum Gram Stain - Final Complete 01/04/25 18:15 Respiratory Culture - Final Staphylococcus aureus Complete 01/04/25 17:00 Urine - Reed [place] Urine Culture - Final Complete 12/25/24 15:20 Catheter Site Aerobic Culture - Final Staphylococcus epidermidis Complete Labs and/or images reviewed: Labs reviewed by me, Image(s) reviewed by me Problem List/Assessment/Plan Problem List/Assessment/Plan Neurology # Acute toxic/metabolic encephalopathy with new-onset or breakthrough generalized seizures, likely multifactorial: # Medication nonadherence (valproic acid level 22.1, subtherapeutic) # Possible alcohol withdrawal (CIWA not assessable due to sedation) # Substance abuse (notably nitrous oxide) - Current sedation Fentanyl, Propofol -coming down from sedation - Seizure management as below - Versed stopped - IV levetiracetam 1500 mg BID - IV lorazepam PRN - Last seizure on 12/23/2024 - EEG: Largely unremarkable - Head CT & Brain MRI: No acute findings; MRI showed pansinusitis and prominent cervical lymphadenopathy - Supportive care: Received IV banana bags x2, thiamine, and folic acid - Neurology is on board for ongoing evaluation Cardiovascular # HTN # Sepsis secondary to aspiration pneumonia - Abx Vancomycin Dc Respiratory # Acute hypoxic respiratory failure secondary to status epilepticus, intubated on 12/18/2024. # Probable aspiration pneumonia with MSSA isolated in both blood and respiratory cultures. # Pulmonary edema improving. # Bilateral pleural effusions noted on imaging. # Pulmonary embolism ruled out (CT angiography ordered; no DVT on Doppler). - try trach collar tomorrow - On mechanical ventilation: VC-AC mode, RR 20, TV 550 mL, PEEP 5, FiO2 30%. Through size 8 tracheostomy tube which placed - Receiving ipratropium and albuterol nebulizers. - CXR: Hypoinflated lungs with bibasilar atelectasis; 12/29 CXR showed stable cardiomegaly, bilateral effusions, and right basilar airspace disease. - Antibiotics: IV Zosyn started 12/21, discontinued 01/09 - IV Vancomycin started 12/23, stopped 12/24, resumed 12/27 and discontinued 01/15 - IV Lasix 80 mg b.i.d. over the weekend, today 40 mg b.i.d. and from tomorrow 40 mg daily - Therapeutic Lovenox initiated, later discontinued. - Repeat blood and sputum cultures confirmed MSSA. - Status post tracheostomy with size 8 tube placement. GI # Transaminitis-improving # Peptic ulcer prophylaxis # Vitamin B12 deficiency # Constipation, likely slow transit, relieved by lactose,MiraLax& Colace -Pantoprazole 40 mg IV daily - negative hepatitis-B and hepatitis-C - repleted with 1000 mcg B12 - lactulose daily - KUB: Nonobstructive bowel gas pattern. Moderate stool burden. - diet is Vital AF 40 mL # morbid obesity with a BMI 50.3 -nutritional counseling after extubation # Reed catheter changed on 01/04/2025 Nephrology # hypernatremia, now improved # hypokalemia, now improved # hypomagnesemia #? Rhabdomyolysis-improving - serum CK - monitor -keep potassium above 4 and magnesium above 2 -replete as needed, continuously monitor lab -avoid nephrotoxic agents ID # aspiration pneumonia # sepsis due to above # right IJ catheter tip (placed on 12/18/2024, removed on 12/24/2024) culture growing staph epidermidis - pancultures - IV Zosyn discontinued on 01/09 - IV Vancomycin started 12/23, stopped 12/24, resumed 12/27 and discontinued 01/15 - Tylenol as needed for fever - s/p bronchoscopy x 2 - repeat blood cultures, repeat sputum cultures, showing staph aureus Hem/onc # microcytic anemia, mild - monitor Psychiatry # substance use disorder - we will consider Psychiatry consult once patient is extubated DVT prophylaxis: On Lovenox 40 mg b.i.d. Nutrition: NG start feeds again, Vital AF 40 mL Lines Right PICC placed on 12/24/24 Drips -titrating down on sedation - Versed - Stopped 01/16 - fentanyl - propofol Intubated on 12/18/2024 Bronchoscopy on 12/26/24 Repeat bronchoscopy on 12/28/2024 Reed on 01/04/2025 Critical care time 53 minutes excluding procedure. Code status discussed greater than 29 minutes: Full CODE STATUS. Detailed discussion held with patient's mother Ms. Sabillon at bedside., addressed all concerns. Plan discussed with Dr. Liliana ocampo, RN Plan discussed with: Other (Mom and RN) My Orders My Orders Orders - AC GRIFFITH Procedure Category Date Status Time Abg W/ Co-Ox RT 01/17/25 Logged 05:32 Chest Xray 1 View XY 01/17/25 Resulted 07:01 Dietary Evaluation Review Comments: 1) Continue TPN to meet at least 75% estimated needs 2) TF Vital High Protein @ 60ml/hr(goal) with current rate of propofol. TF at goal volume together with propofol provides 2471 kcal (100% eenrgy needs) & 126 gm protein (100% protein needs) 3) Monitor TPN tolerance, lab values, I/O, wt trend Expected Outcomes/Goals: To meet >75% estimated needs Fu 2-3 days Date of Service: Jan 17, 2025 Billing Provider: ANTHONY IQBAL MD Common Visit Codes: 84863-[id number] CARE 30-74 MIN AC GRIFFITH RESIDENT Jan 17, 2025 16:54 ANTHONY IQBAL MD Jan 18, 2025 13:42
[2025-01-17] MEDS: FUROSEMIDE 40 MG/4 ML VIAL IV SCH (18:41)
[2025-01-18] VITALS (107 sets, daily range): BP systolic 105–182; BP diastolic 54–106; PULSE 58–121; RESP 16–51; TEMP 98.1–98.9; O2SAT 87–100
[2025-01-18] MEDS: DEXMEDETOMIDINE HCL IN D5W 100 ML IV SCH (01:06)
[2025-01-18 03:48] LABS: Hematocrit 38.3 % (41.0-53.0); Hemoglobin 13.1 g/dL (13.5-17.5); Mean Corpuscular Hemoglobin 29.5 pg (28.0-32.0); Mean Corpuscular Volume 86.3 fL (80.0-100.0); Nucleated Red Blood Cells % 0.0 %
[2025-01-18 04:09] LABS: Alanine Aminotransferase 38 U/L (7-40); Anion Gap 16 (5-15); BUN/Creatinine Ratio 26.3 (10.0-20.0); Bilirubin, Total 0.9 mg/dL (0.2-1.0); Blood Urea Nitrogen 10 mg/dL (9-23); Calcium 10.3 mg/dL (8.7-10.4); Chloride 104 mmol/L (98-107); Glucose 100 mg/dL (74-106); Magnesium 1.9 mg/dL (1.6-2.6); Sodium 138 mmol/L (136-145)
[2025-01-18 04:11] LABS: Albumin 5.1 g/dL (3.2-4.8); Alkaline Phosphatase 199 U/L (46-116); Carbon Dioxide 18 mmol/L (20-31); Potassium 3.5 mmol/L (3.5-5.1); Total Protein 8.5 g/dL (5.7-8.2)
--- NOTE | 2025-01-18 05:24 | DVH ---
CHEST RADIOGRAPH Indication: f/u Technique: Single frontal view of the chest was obtained Comparison: XY CHEST XRAY 1 VIEW on DOS: 01/17/25, XY CHEST PORTABLE on DOS: 01/16/25, XY CHEST PORTABLE on DOS: 01/15/25 FINDINGS: Lines and Tubes: Tracheostomy tube is unchanged. Right PICC terminates in the superior vena cava. Lungs: The lungs are hypoinflated. There is pulmonary vascular congestion. Pleura: No effusion. No pneumothorax. Cardiomediastinal contours: Stable Cardiovascular silhouette. Bones: No acute osseous abnormality. IMPRESSION: 1. Support lines and tubes unchanged. 2. Pulmonary vascular congestion, unchanged.
[2025-01-18 07:18] LABS: Base Excess -4.3 mmol/L (-2.0-3.0)
[2025-01-18] MEDS: POTASSIUM CHL 20MEQ/100ML 100 ML IV ONE (09:15)
[2025-01-18] MEDS: MAGNESIUM SULFATE 1GM/100ML 100 ML IV ONE (09:15)
--- NOTE | 2025-01-18 10:28 | DVHPN2 ---
Progress Note - Dictate Date Seen: Jan 18, 2025 Medical Necessity Reason Pt with a Central, PICC or Fol: Yes The following are medically ne: PICC Line, Reed Catheter Reason for reed catheter: Strict I&O Subjective Mr. Perry is a 24 years old right-handed gentleman with a history of hypertension, pain syndrome, substance abuse, he was admitted to the [facility] on 12/17/2024 for new onset seizure activity. I have seen and examined the patient, discussed with his nurses, his mother in the room. He keeps improving, especially mental status, he responds to verbal stimuli, he follows verbal commands, he has social problems smile He is status post tracheostomy (01/12/2025), status post PEG tube (01/14/2025) Fentanyl 50 mcg/hour, Versed 8 mg/hour, propofol 4 mcg/min, Precedex 0.4 mcg/kg/hour Blood culture, 12/25/2024: No growth Sputum culture, 12/25/2024: Staphylococcus aureus Urine culture, 01/04/2025: Urinalysis, 12/17/2024: Unremarkable Urine drug screening, 12/17/2024: Benzo Valproic acid, 12/17/2024: 22.1 Plasma alcohol, 12/17/2024: <3 ABG, 12/18/2024: Respiratory acidosis, 12/20/2024: Acidosis, 12/22/2024: Hypoxia, 12/24/2024: Hypoxia, carbon dioxide retention, 12/25/2024: Hypoxia, carbon dioxide retention, 12/29/2024: Hypoxia, carbon dioxide retention WBC/HB/PLT/MCV, 12/20/2024: 8/12.4/233/90.4 CMP 12/18/2024: Unremarkable TBI/AST/ALT/AP, 12/20/2024: 0.7/44/45/143 EEG, 12/19/2019 10/26/24 13:15: Normal EEG, 12/23/2024: Moderately abnormal EEG Bronchoscopy 01/12/25: There were copious blood tinged secretions in the airways bilaterally Chest x-ray 12/18/2024: Endotracheal tube 0.7 cm above the rogers. Nasogastric tube in the proximal stomach Chest x-ray, 12/27/2024: 1. Stable mild multifocal bilateral pulmonary airspace disease, most notably at the lung bases. 2. Lines and tubes unchanged Chest x-ray, 12/29/2024: 1. Stable cardiomegaly, bilateral pleural effusions and moderate diffuse increased prominence of the pulmonary vasculature. 2. Right basilar pulmonary airspace disease. 3. Interval retraction of endotracheal tube as above. Remaining lines and tubes unchanged Chest x-ray, : Lines and tubes in satisfactory position. No significant interval change. CT head, 12/17/2024: No evidence of acute intracranial abnormality. If symptoms persist, consider MRI for further evaluation MR head, 12/21/2024: No evidence of acute infarction, intracranial hemorrhage, mass effect or hydrocephalus. No evidence of mesial temporal sclerosis. Pansinusitis. Prominent bilateral cervical lymph nodes. This can be further evaluated with ultrasound vital signs Vital Sign Date Time Temp Pulse Resp B/P (MAP) Pulse Ox O2 Delivery O2 Flow Rate FiO2 01/18/25 09:47 87 20 145/91 (109) 100 30 01/18/25 08:00 Mechanical Ventilator+ 01/18/25 08:00 98.6 98.6 Total Intake and Output 01/17/25 01/17/25 01/18/25 15:00 23:00 07:00 Intake Total 536.654 ml 513.614 ml 476.883 ml Output Total 2075 ml 1150 ml Balance 536.654 ml -1561.386 ml -673.117 ml medications Current Medications Medications Dose Ordered Sig/Rick Route Start Time Stop Time Status Last Admin Dose Admin Lorazepam 1 mg Q5MINP PRN IV 12/18/24 11:00 12/23/24 08:43 1 MG Midazolam HCl 50 ml @ 1 mls/hr Q24H IV 12/18/24 21:15 01/18/25 03:09 3 MLS/HR Diagnostic Test (Pha) 1 strip Q6HR 12/19/24 12:00 01/18/25 05:46 1 STRIP Insulin Human Regular FOLLOW SLIDING SCALE Q6HR SC 12/19/24 12:00 01/12/25 18:29 2 UNITS Dextrose 50 ml UD IV 12/19/24 10:00 12/22/24 23:25 50 ML Albuterol 2.5 mg Q6HR NEB 12/19/24 18:00 01/18/25 05:59 2[address] [place] 0.5 mg Q6HR NEB 12/19/24 18:00 01/18/25 05:59 0.5 MG Pantoprazole Sodium 40 mg DAILY IV 12/21/24 10:00 01/18/25 10:09 40 MG Polyethylene Glycol 17 gm DAILY PO 12/22/24 10:00 Hold 01/07/25 09:44 17 GM Docusate Sodium 100 mg BID GT 12/22/24 10:00 01/18/25 10:09 100 MG Thiamine HCl 100 mg DAILY IV 12/24/24 10:00 01/18/25 10:09 100 MG Folic Acid 1 mg/ Dextrose 50.2 ml @ 200.8 mls/ hr DAILY INJ 12/24/24 10:00 01/18/25 10:10 200.8 MLS/HR Sodium Chloride 10 ml QSHIFT@10,22 IV 12/24/24 22:00 01/18/25 10:10 10 ML Enteral Nutritional Formula 1,000 ml 40ML/HR GT 12/27/24 16:45 01/09/25 21:00 1,000 ML Lactulose 15 ml DAILY PO 12/28/24 10:00 Hold 01/09/25 09:17 15 ML Acetaminophen 625 mg Q8HPRN PRN GT 12/31/24 16:00 01/15/25 08:14 625 MG Enoxaparin Sodium 40 mg Q12HP SC 01/10/25 22:00 01/18/25 10:11 40 MG Acetaminophen 650 mg Q8HP PRN OR 01/12/25 14:45 Hold Propofol 100 ml @ 4.038 mls/ hr Q24H IV 01/12/25 16:15 01/17/25 04:54 32.304 MLS/HR Fentanyl Citrate 250 ml @ 2.5 mls/hr Q24H IV 01/16/25 22:30 01/18/25 06:41 10 MLS/HR Furosemide 40 mg DAILY IV 01/17/25 18:00 01/17/25 18:41 40 MG objective The patient is well-nourished and well-developed with no distress. The patient is status post tracheostomy, feeding tube insertion MENTAL STATUS: Subjective CRANIAL NERVES: Pupils are equal, round and reactive. There is conjugated eye movement. Sensorimotor examined in bilateral trigeminal distribution is unremarkable, no facial weakness SENSATION: Okay to pinprick and light touch MOTOR: Normal tone in the upper and lower extremity. Normal muscle bulk. No fasciculations. He moves the arms and legs REFLEXES: Deep tendon reflexes are symmetrical. No pathological reflexes. CEREBELLAR/COORDINATION: Deferred GAIT/STATION: deferred laboratory and microbiology Laboratory Tests 01/18/25 02:50 Test 01/18/25 02:50 Range/Units Serum Glucose 100 74-106 mg/dL Problem List Come, resolved Metabolic encephalopathy Hypoxic encephalopathy Toxic encephalopathy ? Status epileptics New onset seizure, status epileptics Likely secondary to substance abuse Rule out epileptic seizure or other acute symptomatic seizure The activity witnessed on 12/23/2024 was not typical to seizure, likely myoclonus Substance abuse ? Depression Respiratory failure/hypoxia, status post tracheostomy Pneumonia ICU myopathy Dysphagia/status post feeding tube insertion Assessment/Plan Monitoring Supportive treatment Telemetry Follow-up lab ICU care Stabilize vitals Respiratory support/vent management Ativan for seizure breakthrough Need history from him directly Consider tele psych consultation Re: The previous substance abuse later More recommendation per clinical course This medical document was created using an electronic medical record system with [employer] computerized dictation system. Although this document has been carefully reviewed, there may still be some phonetic and typographical errors. These areas are purely typographical due to imperfections of the software programs, and do not reflect any compromise in the patient's medical care. Prognosis poor Dietary Evaluation Review Comments: 1) Continue TPN to meet at least 75% estimated needs 2) TF Vital High Protein @ 60ml/hr(goal) with current rate of propofol. TF at goal volume together with propofol provides 2471 kcal (100% eenrgy needs) & 126 gm protein (100% protein needs) 3) Monitor TPN tolerance, lab values, I/O, wt trend Expected Outcomes/Goals: To meet >75% estimated needs Fu 2-3 days Plan discussed with: Other BONNY PEREZ MD Jan 18, 2025 10:28
[2025-01-18 15:30] LABS: Base Excess -6.0 mmol/L (-2.0-3.0)
--- NOTE | 2025-01-18 17:38 | DVHPNRES ---
Progress Note Date Seen: Jan 18, 2025 Resident Creating Document: AC GRIFFITH RESIDENT Medical Necessity Reason Pt with a Central, PICC or Fol: Yes The following are medically ne: PICC Line, Reed Catheter Reason for reed catheter: Strict I&O Subjective Review of Systems Mr. Lynn is a 24-year-old male with hypertension, chronic pain, and substance abuse disorder was admitted after new-onset seizures, reportedly due to heavy nitrous oxide use. He was intubated on 12/18/2024 following status epilepticus and placed on multiple sedatives including propofol, Versed, and fentanyl. A right IJ central line and OG tube were placed with difficulty due to body habitus. He was transferred to the ICU and maintained on deep sedation. Patient seen and examined at the bedside. Unable to obtain complete ROS due to patient's clinical status multiple to follow commands. Tried trach collar 2 times today. Trying SIMV. Today urine color has been more dark, removed Reed and sent UA. His WBC count is went up 14.5, sent respiratory cultures. We will continue monitor lab evaluated we will add antibiotic tomorrow. Lasix 40 mg daily continue. Objective vital signs Vital Sign Date Time Temp Pulse Resp B/P (MAP) Pulse Ox O2 Delivery O2 Flow Rate FiO2 01/18/25 17:00 76 21 139/84 (102) 100 01/18/25 16:00 Mechanical Ventilator+ 30 30 01/18/25 16:00 98.7 98.7 Total Intake and Output 01/17/25 01/17/25 01/18/25 15:00 23:00 07:00 Intake Total 536.654 ml 513.614 ml 476.883 ml Output Total 2075 ml 1150 ml Balance 536.654 ml -1561.386 ml -673.117 ml medications Current Medications Medications Dose Ordered Sig/Rick Route Start Time Stop Time Status Last Admin Dose Admin Lorazepam 1 mg Q5MINP PRN IV 12/18/24 11:00 12/23/24 08:43 1 MG Midazolam HCl 50 ml @ 1 mls/hr Q24H IV 12/18/24 21:15 01/18/25 03:09 3 MLS/HR Diagnostic Test (Pha) 1 strip Q6HR 12/19/24 12:00 01/18/25 12:00 1 STRIP Insulin Human Regular FOLLOW SLIDING SCALE Q6HR SC 12/19/24 12:00 01/12/25 18:29 2 UNITS Dextrose 50 ml UD IV 12/19/24 10:00 12/22/24 23:25 50 ML Albuterol 2.5 mg Q6HR NEB 12/19/24 18:00 01/18/25 11:27 2.5 MG Ipratropium [place] 0.5 mg Q6HR NEB 12/19/24 18:00 01/18/25 11:27 0.5 MG Pantoprazole Sodium 40 mg DAILY IV 12/21/24 10:00 01/18/25 10:09 40 MG Polyethylene Glycol 17 gm DAILY PO 12/22/24 10:00 Hold 01/07/25 09:44 17 GM Docusate Sodium 100 mg BID GT 12/22/24 10:00 01/18/25 10:09 100 MG Thiamine HCl 100 mg DAILY IV 12/24/24 10:00 01/18/25 10:09 100 MG Folic Acid 1 mg/ Dextrose 50.2 ml @ 200.8 mls/ hr DAILY INJ 12/24/24 10:00 01/18/25 10:10 200.8 MLS/HR Sodium Chloride 10 ml QSHIFT@10,22 IV 12/24/24 22:00 01/18/25 10:10 10 ML Enteral Nutritional Formula 1,000 ml 40ML/HR GT 12/27/24 16:45 01/09/25 21:00 1,000 ML Lactulose 15 ml DAILY PO 12/28/24 10:00 Hold 01/09/25 09:17 15 ML Acetaminophen 625 mg Q8HPRN PRN GT 12/31/24 16:00 01/15/25 08:14 625 MG Enoxaparin Sodium 40 mg Q12HP SC 01/10/25 22:00 01/18/25 10:11 40 MG Acetaminophen 650 mg Q8HP PRN [place] 01/12/25 14:45 Hold Propofol 100 ml @ 4.038 mls/ hr Q24H IV 01/12/25 16:15 01/17/25 04:54 32.304 MLS/HR Fentanyl Citrate 250 ml @ 2.5 mls/hr Q24H IV 01/16/25 22:30 01/18/25 06:41 10 MLS/HR Furosemide 40 mg DAILY IV 01/17/25 18:00 01/18/25 10:00 40 MG Examination Pt is lying on bed, RASS -1 General Appearance: Mild Sedated HEENT: Atraumatic, Mucous membranes moist/pink, tracheostomy tube in place Respiratory: Coarse bilateral breath sounds, improved, vent settings RR 20, VT 550, FiO2 30%, PEEP 5 Cardiovascular: Regular rate, Normal S1, Normal S2, No murmurs Abdominal: Active bowel sounds, Soft, no distention, Extremities: No edema, Normal pulses, No tenderness/swelling Skin: No Significant rash, except past surgical scars Neuro: Reactive pupils, gag reflex intact Psych/Mental Status: Mental status NL, Mood NL Nurse was there as store receiving clerk during examination laboratory and microbiology Laboratory Tests 01/18/25 02:50 Test 01/18/25 02:50 Range/Units Serum Glucose 100 74-106 mg/dL Microbiology Date/Time Source Procedure Growth Status 01/04/25 18:35 Blood Blood Culture - Final NO GROWTH AFTER 5 DAYS OF INCUBATION. Complete 01/04/25 18:15 Sputum Gram Stain - Final Complete 01/04/25 18:15 Respiratory Culture - Final Staphylococcus aureus Complete 01/04/25 17:00 Urine - Reed Port Urine Culture - Final Complete 12/25/24 15:20 Catheter Site Aerobic Culture - Final Staphylococcus epidermidis Complete Labs and/or images reviewed: Labs reviewed by me, Image(s) reviewed by me Problem List/Assessment/Plan Problem List/Assessment/Plan Neurology # Acute toxic/metabolic encephalopathy with new-onset or breakthrough generalized seizures, likely multifactorial: # Medication nonadherence (valproic acid level 22.1, subtherapeutic) # Possible alcohol withdrawal (CIWA not assessable due to sedation) # Substance abuse (notably nitrous oxide) - Current sedation Fentanyl, Propofol -coming down from sedation - Seizure management as below - Versed stopped - Dc'd IV levetiracetam 500 mg BID per neuro recomendation on 01/14 - IV lorazepam PRN - Last seizure on 12/23/2024 - EEG: Largely unremarkable - Head CT & Brain MRI: No acute findings; MRI showed pansinusitis and prominent cervical lymphadenopathy - Supportive care: Received IV banana bags x2, thiamine, and folic acid - Neurology is on board for ongoing evaluation Cardiovascular # HTN # Sepsis secondary to aspiration pneumonia - Abx Vancomycin Dc Respiratory # Acute hypoxic respiratory failure secondary to status epilepticus, intubated on 12/18/2024. # Probable aspiration pneumonia with MSSA isolated in both blood and respiratory cultures. # Pulmonary edema improved. # Bilateral pleural effusions noted on imaging. # Pulmonary embolism ruled out (CT angiography ordered; no DVT on Doppler). - tried trach collar today 2 times and currently on SIMV - On mechanical ventilation: VC-AC mode, RR 20, TV 550 mL, PEEP 5, FiO2 30% and tried trach collar today 2 times and currently on SIMV - Receiving ipratropium and albuterol nebulizers. - CXR: Hypoinflated lungs with bibasilar atelectasis; 12/29 CXR showed stable cardiomegaly, bilateral effusions, and right basilar airspace disease. - Antibiotics: IV Zosyn started 12/21, discontinued 01/09 - IV Vancomycin started 12/23, discontinued 01/15 - IV Lasix 40 mg daily - Therapeutic Lovenox initiated, later discontinued. - Repeat blood and sputum cultures confirmed MSSA. - Status post tracheostomy with size 8 tube placement. Trying on trach collar 2 times today and currently on SIMV -today respiratory cultures ordered, pending GI # Transaminitis-improving # Peptic ulcer prophylaxis # Vitamin B12 deficiency # Constipation, likely slow transit, relieved by lactose,MiraLax& Colace -Pantoprazole 40 mg IV daily - negative hepatitis-B and hepatitis-C - repleted with 1000 mcg B12 - lactulose daily - KUB: Nonobstructive bowel gas pattern. Moderate stool burden. - diet is Vital AF 40 mL # morbid obesity with a BMI 50.3 -nutritional counseling after extubation # Reed catheter Dc today -sent urinalysis Nephrology # hypernatremia, now improved # hypokalemia, now improved # hypomagnesemia #? Rhabdomyolysis-improving - serum CK - monitor -keep potassium above 4 and magnesium above 2 -replete as needed, continuously monitor lab -avoid nephrotoxic agents ID # aspiration pneumonia # sepsis due to above # right IJ catheter tip (placed on 12/18/2024, removed on 12/24/2024) culture growing staph epidermidis - pancultures - IV Zosyn discontinued on 01/09 - IV Vancomycin started 12/23, discontinued 01/15 - Tylenol as needed for fever - s/p bronchoscopy x 2 - repeat blood cultures, repeat sputum cultures, showing staph aureus Hem/onc # microcytic anemia, mild - monitor Psychiatry # substance use disorder - we will consider Psychiatry consult once patient is extubated DVT prophylaxis: On Lovenox 40 mg b.i.d. Nutrition: NG start feeds again, Vital AF 40 mL Lines Right PICC placed on 12/24/24 Drips -titrating down on sedation - Versed - Stopped 01/16 - fentanyl - titrating down - propofol - titrating down Intubated on 12/18/2024 Bronchoscopy on 12/26/24 Repeat bronchoscopy on 12/28/2024 Reed on 01/04/2025 Critical care time 83 minutes excluding procedure. Code status discussed greater than 29 minutes: Full CODE STATUS. Detailed discussion held with patient's mother Ms. Sabillon at bedside., addressed all concerns. Plan discussed with Dr. Iqbal, RN Plan discussed with: Other (Mother and rn) My Orders My Orders Orders - AC GRIFFITH Procedure Category Date Status Time Furosemide Injection PHA 01/17/25 In Process (Lasix Injection) 18:00 Respiratory Culture BRENDA 01/18/25 Uncollected W/ Gs 17:22 Complete Blood Count LAB 01/19/25 Verified 04:00 Comprehensive LAB 01/19/25 Verified Metabolic Panel 04:00 Magnesium LAB 01/19/25 Verified 04:00 Abg W/ Co-Ox RT 01/19/25 Logged 04:00 Chest Portable XY 01/19/25 Logged 04:00 Dietary Evaluation Review Comments: 1) Continue TPN to meet at least 75% estimated needs 2) TF Vital High Protein @ 60ml/hr(goal) with current rate of propofol. TF at goal volume together with propofol provides 2471 kcal (100% eenrgy needs) & 126 gm protein (100% protein needs) 3) Monitor TPN tolerance, lab values, I/O, wt trend Expected Outcomes/Goals: To meet >75% estimated needs Fu 2-3 days Date of Service: Jan 18, 2025 Billing Provider: ANTHONY IQBAL MD Common Visit Codes: 36380-[id number] CARE 30-74 MIN, 31691-CTUGNYRA CARE-EACH +30MIN AC GRIFFITH Jan 18, 2025 17:37 ANTHONY IQBAL MD Jan 19, 2025 14:08
[2025-01-19] VITALS (100 sets, daily range): BP systolic 96–166; BP diastolic 44–96; PULSE 58–95; RESP 11–42; TEMP 98.4–99.1; O2SAT 96–100
[2025-01-19] MEDS: levETIRAcetam 500 mg/100ml 100 ML IV SCH (00:41)
--- NOTE | 2025-01-19 03:01 | DVH ---
CHEST RADIOGRAPH Indication: f/u Technique: 1 view Comparison: XY CHEST PORTABLE on DOS: 01/18/25, XY CHEST XRAY 1 VIEW on DOS: 01/17/25, XY CHEST PORTABLE on DOS: 01/16/25, XY CHEST PORTABLE on DOS: 01/15/25, XY CHEST PORTABLE on DOS: 01/14/25 FINDINGS: Lines and Tubes: Unchanged tracheostomy and right upper extremity PICC. Lungs: Persistent low volumes with bilateral mixed pulmonary opacities. Pleura: No evident effusion or pneumothorax. Cardiomediastinal contours: Unchanged. Other: Unchanged. IMPRESSION: 1. No significant change from the previous study. Stable support devices.
[2025-01-19 03:43] LABS: Hematocrit 36.6 % (41.0-53.0); Hemoglobin 12.7 g/dL (13.5-17.5); Mean Corpuscular Hemoglobin 30.1 pg (28.0-32.0); Mean Corpuscular Volume 86.4 fL (80.0-100.0); Nucleated Red Blood Cells % 0.1 %
[2025-01-19 03:49] LABS: Alanine Aminotransferase 33 U/L (7-40); Anion Gap 15 (5-15); BUN/Creatinine Ratio 37.3 (10.0-20.0); Bilirubin, Total 0.6 mg/dL (0.2-1.0); Blood Urea Nitrogen 19 mg/dL (9-23); Carbon Dioxide 21 mmol/L (20-31); Chloride 104 mmol/L (98-107); Glucose 105 mg/dL (74-106); Magnesium 1.9 mg/dL (1.6-2.6); Sodium 140 mmol/L (136-145)
[2025-01-19 03:52] LABS: Albumin 4.9 g/dL (3.2-4.8); Alkaline Phosphatase 175 U/L (46-116); Calcium 10.5 mg/dL (8.7-10.4); Potassium 3.4 mmol/L (3.5-5.1); Total Protein 8.3 g/dL (5.7-8.2)
[2025-01-19 07:26] LABS: Base Excess -4.2 mmol/L (-2.0-3.0)
[2025-01-19] MEDS: MAGNESIUM SULFATE 1GM/100ML 100 ML IV ONE (08:53)
[2025-01-19] MEDS: POTASSIUM CHL 20MEQ/100ML 100 ML IV ONE (09:45)
--- NOTE | 2025-01-19 11:09 | DVHPN2 ---
Progress Note - Dictate Date Seen: Jan 19, 2025 Medical Necessity Reason Pt with a Central, PICC or Fol: Yes The following are medically ne: PICC Line, Reed Catheter Reason for reed catheter: Strict I&O Subjective Mr. Perry is a 24 years old right-handed gentleman with a history of hypertension, pain syndrome, substance abuse, he was admitted to the [facility] on 12/17/2024 for new onset seizure activity. I have seen and examined the patient, discussed with his nurses, his mother in the room. Overall he keeps improving, especially mental status, he is able to use sign to communicate, extremities are stronger In the evening on 01/18/2025, the patient had a seizure (RN note 01/18/25 22:20) in that, according morning nurse, he was having. Nine she nurse did not put detailed information. Kesandrara resumed He is status post tracheostomy (01/12/2025), status post PEG tube (01/14/2025) Fentanyl 50 mcg/hour, Versed 8 mg/hour, propofol 4 mcg/min, Precedex 0.4 mcg/kg/hour Blood culture, 12/25/2024: No growth Sputum culture, 12/25/2024: Staphylococcus aureus Urine culture, 01/04/2025: Urinalysis, 12/17/2024: Unremarkable Urine drug screening, 12/17/2024: Benzo Valproic acid, 12/17/2024: 22.1 Plasma alcohol, 12/17/2024: <3 ABG, 12/18/2024: Respiratory acidosis, 12/20/2024: Acidosis, 12/22/2024: Hypoxia, 12/24/2024: Hypoxia, carbon dioxide retention, 12/25/2024: Hypoxia, carbon dioxide retention, 12/29/2024: Hypoxia, carbon dioxide retention WBC/HB/PLT/MCV, 12/20/2024: 8/12.4/233/90.4 CMP 12/18/2024: Unremarkable TBI/AST/ALT/AP, 12/20/2024: 0.7/44/45/143 EEG, 12/19/2019 10/26/24 13:15: Normal EEG, 12/23/2024: Moderately abnormal EEG Bronchoscopy 01/12/25: There were copious blood tinged secretions in the airways bilaterally Chest x-ray 12/18/2024: Endotracheal tube 0.7 cm above the rogers. Nasogastric tube in the proximal stomach Chest x-ray, 12/27/2024: 1. Stable mild multifocal bilateral pulmonary airspace disease, most notably at the lung bases. 2. Lines and tubes unchanged Chest x-ray, 12/29/2024: 1. Stable cardiomegaly, bilateral pleural effusions and moderate diffuse increased prominence of the pulmonary vasculature. 2. Right basilar pulmonary airspace disease. 3. Interval retraction of endotracheal tube as above. Remaining lines and tubes unchanged Chest x-ray, : Lines and tubes in satisfactory position. No significant interval change. CT head, 12/17/2024: No evidence of acute intracranial abnormality. If symptoms persist, consider MRI for further evaluation MR head, 12/21/2024: No evidence of acute infarction, intracranial hemorrhage, mass effect or hydrocephalus. No evidence of mesial temporal sclerosis. Pansinusitis. Prominent bilateral cervical lymph nodes. This can be further evaluated with ultrasound vital signs Vital Sign Date Time Temp Pulse Resp B/P (MAP) Pulse Ox O2 Delivery O2 Flow Rate FiO2 01/19/25 10:25 139/73 01/19/25 10:00 76 38 97 01/19/25 08:28 30 01/19/25 08:00 Mechanical Ventilator+ 01/19/25 04:15 99.1 99.1 Total Intake and Output 01/18/25 01/18/25 01/19/25 15:00 23:00 07:00 Intake Total 125.94 ml 177.784 ml 317.346 ml Output Total 1050 ml 575 ml Balance 125.94 ml -872.216 ml -257.654 ml medications Current Medications Medications Dose Ordered Sig/Rick Route Start Time Stop Time Status Last Admin Dose Admin Lorazepam 1 mg Q5MINP PRN IV 12/18/24 11:00 12/23/24 08:43 1 MG Midazolam HCl 50 ml @ 1 mls/hr Q24H IV 12/18/24 21:15 01/18/25 03:09 3 MLS/HR Diagnostic Test (Pha) 1 strip Q6HR 12/19/24 12:00 01/19/25 05:21 1 STRIP Insulin Human Regular FOLLOW SLIDING SCALE Q6HR SC 12/19/24 12:00 01/18/25 23:58 2 UNITS Dextrose 50 ml UD IV 12/19/24 10:00 12/22/24 23:25 50 ML Albuterol 2.5 mg Q6HR NEB 12/19/24 18:00 01/19/25 06:20 2.5 MG Ipratropium [place] 0.5 mg Q6HR NEB 12/19/24 18:00 01/19/25 06:21 0.5 MG Pantoprazole Sodium 40 mg DAILY IV 12/21/24 10:00 01/19/25 10:25 40 MG Polyethylene Glycol 17 gm DAILY PO 12/22/24 10:00 Hold 01/07/25 09:44 17 GM Docusate Sodium 100 mg BID GT 12/22/24 10:00 01/18/25 10:09 100 MG Thiamine HCl 100 mg DAILY IV 12/24/24 10:00 01/19/25 10:25 100 MG Folic Acid 1 mg/ Dextrose 50.2 ml @ 200.8 mls/ hr DAILY INJ 12/24/24 10:00 01/19/25 10:24 200.8 MLS/HR Sodium Chloride 10 ml QSHIFT@10,22 IV 12/24/24 22:00 01/19/25 10:25 10 ML Enteral Nutritional Formula 1,000 ml 40ML/HR GT 12/27/24 16:45 01/09/25 21:00 1,000 ML Lactulose 15 ml DAILY PO 12/28/24 10:00 Hold 01/09/25 09:17 15 ML Acetaminophen 625 mg Q8HPRN PRN GT 12/31/24 16:00 01/15/25 08:14 625 MG Enoxaparin Sodium 40 mg Q12HP SC 01/10/25 22:00 01/19/25 10:26 40 MG Acetaminophen 650 mg Q8HP PRN [place] 01/12/25 14:45 Hold Propofol 100 ml @ 4.038 mls/ hr Q24H IV 01/12/25 16:15 01/17/25 04:54 32.304 MLS/HR Fentanyl Citrate 250 ml @ 2.5 mls/hr Q24H IV 01/16/25 22:30 01/18/25 06:41 10 MLS/HR Furosemide 40 mg DAILY IV 01/17/25 18:00 01/19/25 10:25 40 MG Levetiracetam 100 ml @ 400 mls/hr BID IV 01/19/25 00:33 01/19/25 10:25 400 MLS/HR objective The patient is well-nourished and well-developed with no distress. The patient is status post tracheostomy, feeding tube insertion MENTAL STATUS: Subjective CRANIAL NERVES: Pupils are equal, round and reactive. There is conjugated eye movement. Sensorimotor examined in bilateral trigeminal distribution is unremarkable, no facial weakness SENSATION: Okay to pinprick and light touch MOTOR: Normal tone in the upper and lower extremity. Normal muscle bulk. No fasciculations. He moves the arms and legs REFLEXES: Deep tendon reflexes are symmetrical. No pathological reflexes. CEREBELLAR/COORDINATION: Deferred GAIT/STATION: deferred laboratory and microbiology Laboratory Tests 01/19/25 02:52 Test 01/19/25 02:52 Range/Units Serum Glucose 105 74-106 mg/dL Problem List Come, resolved Metabolic encephalopathy Hypoxic encephalopathy Toxic encephalopathy ? Status epileptics New onset seizure, status epileptics Likely secondary to substance abuse Rule out epileptic seizure or other acute symptomatic seizure The activity witnessed on 12/23/2024 was not typical to seizure, likely myoclonus Substance abuse ? Depression Respiratory failure/hypoxia, status post tracheostomy Pneumonia ICU myopathy Dysphagia/status post feeding tube insertion Assessment/Plan Monitoring Supportive treatment Telemetry EEG Follow-up lab ICU care Stabilize vitals Respiratory support/vent management Keppra 500 mg b.i.d. for now Ativan for seizure breakthrough Need history from him directly Consider tele psych consultation Re: The previous substance abuse later More recommendation per clinical course This medical document was created using an electronic medical record system with [employer] dictation system. Although this document has been carefully reviewed, there may still be some phonetic and typographical errors. These areas are purely typographical due to imperfections of the software programs, and do not reflect any compromise in the patient's medical care. Prognosis guarded Dietary Evaluation Review Comments: 1) Continue TPN to meet at least 75% estimated needs 2) TF Vital High Protein @ 60ml/hr(goal) with current rate of propofol. TF at goal volume together with propofol provides 2471 kcal (100% eenrgy needs) & 126 gm protein (100% protein needs) 3) Monitor TPN tolerance, lab values, I/O, wt trend Expected Outcomes/Goals: To meet >75% estimated needs Fu 2-3 days Plan discussed with: Other BONNY PEREZ MD Jan 19, 2025 11:09
--- NOTE | 2025-01-19 17:33 | DVH ---
CHEST RADIOGRAPH Indication: post dobbhuff placement Technique: Single frontal view of the chest was obtained Comparison: XY KUB ABDOMEN SINGLE VIEW on DOS: 01/14/25, XY KUB ABDOMEN SINGLE VIEW on DOS: 01/02/25, XY KUB ABDOMEN SINGLE VIEW on DOS: 12/31/24 FINDINGS: Lines and Tubes: Dobbhoff tube either in the duodenal bulb or 2nd portion of the duodenum. Lungs: No focal consolidation. Pleura: No effusion. No pneumothorax. Cardiomediastinal contours: Unremarkable Bones: No acute osseous abnormality. IMPRESSION: 1. Dobbhoff tube in the distal stomach or duodenum.
--- NOTE | 2025-01-19 18:15 | DVHPNRES ---
Progress Note Date Seen: Jan 19, 2025 Resident Creating Document: AC GRIFFITH RESIDENT Medical Necessity Reason Pt with a Central, PICC or Fol: Yes The following are medically ne: PICC Line, Reed Catheter Reason for reed catheter: Strict I&O Subjective Review of Systems Mr. Lynn is a 24-year-old male with hypertension, chronic pain, and substance abuse disorder was admitted after new-onset seizures, reportedly due to heavy nitrous oxide use. He was intubated on 12/18/2024 following status epilepticus and placed on multiple sedatives including propofol, Versed, and fentanyl. A right IJ central line and OG tube were placed with difficulty due to body habitus. He was transferred to the ICU and maintained on deep sedation. Patient seen and examined at the bedside. Unable to obtain complete ROS due to patient's clinical status multiple to follow commands. Tried trach collar 2 hours today. Trying SIMV, patient is doing good and well tolerated. Today placed Dobbhoff tube., PT evaluation and went upon peep 8. Yesterday night patient found to have brief episode of seizure-like activity which lasts less than 30 seconds and resolved itself so started again on IV Keppra for an 500 mg b.i.d.. Objective vital signs Vital Sign Date Time Temp Pulse Resp B/P (MAP) Pulse Ox O2 Delivery O2 Flow Rate FiO2 01/19/25 16:32 65 15 126/63 (84) 100 30 01/19/25 16:00 98.4 98.4 01/19/25 16:00 Mechanical Ventilator+ 01/19/25 10:00 9 Total Intake and Output 01/18/25 01/18/25 01/19/25 15:00 23:00 07:00 Intake Total 125.94 ml 177.784 ml 332.776 ml Output Total 1050 ml 575 ml Balance 125.94 ml -872.216 ml -242.224 ml medications Current Medications Medications Dose Ordered Sig/Rick Route Start Time Stop Time Status Last Admin Dose Admin Lorazepam 1 mg Q5MINP PRN IV 12/18/24 11:00 12/23/24 08:43 1 MG Midazolam HCl 50 ml @ 1 mls/hr Q24H IV 12/18/24 21:15 01/18/25 03:09 3 MLS/HR Diagnostic Test (Pha) 1 strip Q6HR 12/19/24 12:00 01/19/25 12:00 1 STRIP Insulin Human Regular FOLLOW SLIDING SCALE Q6HR SC 12/19/24 12:00 01/18/25 23:58 2 UNITS Dextrose 50 ml UD IV 12/19/24 10:00 12/22/24 23:25 50 ML Albuterol 2.5 mg Q6HR NEB 12/19/24 18:00 01/19/25 11:51 2.5 MG Ipratropium [place] 0.5 mg Q6HR NEB 12/19/24 18:00 01/19/25 11:51 0.5 MG Pantoprazole Sodium 40 mg DAILY IV 12/21/24 10:00 01/19/25 10:25 40 MG Polyethylene Glycol 17 gm DAILY PO 12/22/24 10:00 Hold 01/07/25 09:44 17 GM Docusate Sodium 100 mg BID GT 12/22/24 10:00 01/18/25 10:09 100 MG Thiamine HCl 100 mg DAILY IV 12/24/24 10:00 01/19/25 10:25 100 MG Folic Acid 1 mg/ Dextrose 50.2 ml @ 200.8 mls/ hr DAILY INJ 12/24/24 10:00 01/19/25 10:24 200.8 MLS/HR Sodium Chloride 10 ml QSHIFT@10,22 IV 12/24/24 22:00 01/19/25 10:25 10 ML Enteral Nutritional Formula 1,000 ml 40ML/HR GT 12/27/24 16:45 01/09/25 21:00 1,000 ML Lactulose 15 ml DAILY PO 12/28/24 10:00 Hold 01/09/25 09:17 15 ML Acetaminophen 625 mg Q8HPRN PRN GT 12/31/24 16:00 01/15/25 08:14 625 MG Enoxaparin Sodium 40 mg Q12HP SC 01/10/25 22:00 01/19/25 10:26 40 MG Acetaminophen 650 mg Q8HP PRN HI 01/12/25 14:45 Hold Propofol 100 ml @ 4.038 mls/ hr Q24H IV 01/12/25 16:15 01/17/25 04:54 32.304 MLS/HR Fentanyl Citrate 250 ml @ 2.5 mls/hr Q24H IV 01/16/25 22:30 8/5/25 06:41 10 MLS/HR Furosemide 40 mg DAILY IV 01/17/25 18:00 01/19/25 10:25 40 MG Levetiracetam 100 ml @ 400 mls/hr BID IV 01/19/25 00:33 01/19/25 10:25 400 MLS/HR Examination Pt is lying on bed, RASS -1 General Appearance: Mild Sedated HEENT: Atraumatic, Mucous membranes moist/pink, tracheostomy tube in place, Dobbhoff tube in place Respiratory: Coarse bilateral breath sounds, improved, vent settings RR 20, VT 550, FiO2 30%, PEEP 8 Cardiovascular: Regular rate, Normal S1, Normal S2, No murmurs Abdominal: Active bowel sounds, Soft, no distention, Extremities: No edema, Normal pulses, No tenderness/swelling Skin: No Significant rash, except past surgical scars Neuro: Reactive pupils, gag reflex intact Psych/Mental Status: Mental status NL, Mood NL Nurse was there as operator bearer systems during examination laboratory and microbiology Laboratory Tests 01/19/25 02:52 Test 01/19/25 02:52 Range/Units Serum Glucose 105 74-106 mg/dL Microbiology Date/Time Source Procedure Growth Status 01/18/25 19:20 Sputum Gram Stain - Final Resulted 01/18/25 19:20 Sputum Respiratory Culture Pending Resulted 01/04/25 18:35 Blood Blood Culture - Final NO GROWTH AFTER 5 DAYS OF INCUBATION. Complete 01/04/25 17:00 Urine - Reed [place] Urine Culture - Final Complete 12/25/24 15:20 Catheter Site Aerobic Culture - Final Staphylococcus epidermidis Complete Labs and/or images reviewed: Labs reviewed by me, Image(s) reviewed by me Problem List/Assessment/Plan Problem List/Assessment/Plan Neurology # Acute toxic/metabolic encephalopathy with new-onset or breakthrough generalized seizures, likely multifactorial: # Medication nonadherence (valproic acid level 22.1, subtherapeutic) # Possible alcohol withdrawal (CIWA not assessable due to sedation) # Substance abuse (notably nitrous oxide) - Current sedation Fentanyl, Propofol -coming down from sedation - Seizure management as below - Versed stopped - IV levetiracetam 500 mg BID - IV lorazepam PRN - Last seizure on 01/18/2025 - EEG: Largely unremarkable - Head CT & Brain MRI: No acute findings; MRI showed pansinusitis and prominent cervical lymphadenopathy - Supportive care: Received IV banana bags x2, thiamine, and folic acid - Neurology is on board for ongoing evaluation Cardiovascular # HTN # Sepsis secondary to aspiration pneumonia - Abx Vancomycin Dc Respiratory # Acute hypoxic respiratory failure secondary to status epilepticus, intubated on 12/18/2024. # Probable aspiration pneumonia with MSSA isolated in both blood and respiratory cultures. # Pulmonary edema improved. # Bilateral pleural effusions noted on imaging. # Pulmonary embolism ruled out (CT angiography ordered; no DVT on Doppler). - tried trach collar today 2 times and currently on SIMV - On mechanical ventilation: VC-AC mode, RR 20, TV 550 mL, PEEP 5, FiO2 30% and tried trach collar today 2 times and currently on SIMV - Receiving ipratropium and albuterol nebulizers. - CXR: Hypoinflated lungs with bibasilar atelectasis; 12/29 CXR showed stable cardiomegaly, bilateral effusions, and right basilar airspace disease. - Antibiotics: IV Zosyn started 12/21, discontinued 01/09 - IV Vancomycin started 12/23, discontinued 01/15 - IV Lasix 40 mg daily - Therapeutic Lovenox initiated, later discontinued. - Repeat blood and sputum cultures confirmed MSSA. - Status post tracheostomy with size 8 tube placement. Trying on trach collar 2 times today and currently on SIMV - Respiratory cultures ordered, pending GI # Transaminitis-improving # Peptic ulcer prophylaxis # Vitamin B12 deficiency # Constipation, likely slow transit, relieved by lactose,MiraLax& Colace -Pantoprazole 40 mg IV daily - negative hepatitis-B and hepatitis-C - repleted with 1000 mcg B12 - lactulose daily - KUB: Nonobstructive bowel gas pattern. Moderate stool burden. - diet is Vital AF 40 mL -through Dobbhoff tube placed today # morbid obesity with a BMI 50.3 -nutritional counseling after extubation # Reed catheter changed yesterday -sent urinalysis Nephrology # hypernatremia, now improved # hypokalemia, now improved # hypomagnesemia #? Rhabdomyolysis-improving - serum CK - monitor -keep potassium above 4 and magnesium above 2 -replete as needed, continuously monitor lab -avoid nephrotoxic agents ID # aspiration pneumonia # sepsis due to above # right IJ catheter tip (placed on 12/18/2024, removed on 12/24/2024) culture growing staph epidermidis - pancultures - IV Zosyn discontinued on 01/09 - IV Vancomycin started 12/23, discontinued 01/15 - Tylenol as needed for fever - s/p bronchoscopy x 2 - repeat blood cultures, repeat sputum cultures, showing staph aureus Hem/onc # microcytic anemia, mild - monitor Psychiatry # substance use disorder - we will consider Psychiatry consult once patient is extubated DVT prophylaxis: On Lovenox 40 mg b.i.d. Nutrition: NG start feeds again, Vital AF 40 mL Lines Right PICC placed on 12/24/24 Drips -titrating down on sedation - Versed - Stopped 01/16 - fentanyl - titrating down - propofol -stopped Intubated on 12/18/2024 Bronchoscopy on 12/26/24 Repeat bronchoscopy on 12/28/2024 Reed on 01/04/2025 Critical care time including trach collar trial 83 minutes excluding procedure. Code status discussed greater than 29 minutes: Full CODE STATUS. Detailed discussion held with patient's mother Ms. Sabillon at bedside., addressed all concerns. Plan discussed with Dr. Iqbal, RN Plan discussed with: Other (mom and rn) My Orders My Orders Orders - AC GRIFFITH Procedure Category Date Status Time Communication Order ORDERS 01/18/25 Transmitted 19:04 Kub Abdomen Single XY 01/19/25 Resulted View 17:00 Dietary Evaluation Review Comments: 1) Continue TPN to meet at least 75% estimated needs 2) TF Vital High Protein @ 60ml/hr(goal) with current rate of propofol. TF at goal volume together with propofol provides 2471 kcal (100% eenrgy needs) & 126 gm protein (100% protein needs) 3) Monitor TPN tolerance, lab values, I/O, wt trend Expected Outcomes/Goals: To meet >75% estimated needs Fu 2-3 days Date of Service: Jan 19, 2025 Billing Provider: ANTHONY IQBAL MD Common Visit Codes: 62613-[id number] CARE 30-74 MIN, [id number] CARE-EACH +30MIN AC GRIFFITH Jan 19, 2025 18:15 ANTHONY IQBAL MD Jan 20, 2025 11:45
[2025-01-20] VITALS (108 sets, daily range): BP systolic 102–151; BP diastolic 39–100; PULSE 52–92; RESP 14–44; TEMP 97.8–98.9; O2SAT 95–100
[2025-01-20 03:02] LABS: Hematocrit 34.9 % (41.0-53.0); Hemoglobin 11.6 g/dL (13.5-17.5); Mean Corpuscular Hemoglobin 29.1 pg (28.0-32.0); Mean Corpuscular Volume 87.3 fL (80.0-100.0); Nucleated Red Blood Cells % 0.1 %
[2025-01-20 03:21] LABS: Albumin 4.7 g/dL (3.2-4.8); Anion Gap 14 (5-15); BUN/Creatinine Ratio 45.1 (10.0-20.0); Blood Urea Nitrogen 23 mg/dL (9-23); Calcium 10.2 mg/dL (8.7-10.4); Carbon Dioxide 22 mmol/L (20-31); Chloride 106 mmol/L (98-107); Glucose 99 mg/dL (74-106); Magnesium 1.9 mg/dL (1.6-2.6); Potassium 3.6 mmol/L (3.5-5.1); Sodium 142 mmol/L (136-145); Total Protein 7.9 g/dL (5.7-8.2)
[2025-01-20 03:22] LABS: Bilirubin, Total 0.7 mg/dL (0.2-1.0)
[2025-01-20 03:27] LABS: Alanine Aminotransferase 47 U/L (7-40); Alkaline Phosphatase 167 U/L (46-116)
--- NOTE | 2025-01-20 05:34 | DVH ---
CHEST RADIOGRAPH Indication: f/u Technique: Single frontal view of the chest was obtained Comparison: XY CHEST PORTABLE on DOS: 01/19/25, XY CHEST PORTABLE on DOS: 01/18/25, XY CHEST XRAY 1 VIEW on DOS: 01/17/25 FINDINGS: Lines and Tubes: Right PICC terminates in the right atrium. Tracheostomy tube is unchanged. The ente alyson tube courses below the left hemidiaphragm and the tip extends outside the field of view. Lungs: The lungs are hyperinflated. Pulmonary vascular congestion. Pleura: No effusion. No pneumothorax. Cardiomediastinal contours: Enlarged Cardiovascular silhouette. Bones: No acute osseous abnormality. IMPRESSION: 1. Stable position of the support lines and tubes. 2. Pulmonary vascular congestion. 3. Cardiomegaly.
[2025-01-20] MEDS: MAGNESIUM SULFATE 1GM/100ML 100 ML IV ONE (08:17)
[2025-01-20 09:27] LABS: Base Excess -1.1 mmol/L (-2.0-3.0)
--- NOTE | 2025-01-20 10:08 | DVH ---
Date: 01/20/2025 08:37 AM Examination: XY KUB ABDOMEN SINGLE VIEW History: CONFIRMATION OF DOBBHUFF PLACEMENT Comparison: XY KUB ABDOMEN SINGLE VIEW on DOS: 01/19/25, XY KUB ABDOMEN SINGLE VIEW on DOS: 01/14/25, XY KUB ABDOMEN SINGLE VIEW on DOS: 01/02/25, XY KUB ABDOMEN SINGLE VIEW on DOS: 12/31/24 TECHNIQUE: Frontal views of the abdomen was obtained. FINDINGS: Bowel gas pattern is unremarkable. Weighted tip feeding projects over the distal stomach versus proxi mal duodenum. The lung bases are unremarkable. No acute osseous abnormality identified. IMPRESSION: Nonobstructive bowel gas pattern.
--- NOTE | 2025-01-20 10:56 | DVHPN2 ---
Progress Note - Dictate Date Seen: Jan 20, 2025 Medical Necessity Reason Pt with a Central, PICC or Fol: Yes The following are medically ne: PICC Line, Reed Catheter Reason for reed catheter: Strict I&O Subjective Mr. Perry is a 24 years old right-handed gentleman with a history of hypertension, pain syndrome, substance abuse, he was admitted to the [facility] on 12/17/2024 for new onset seizure activity. I have seen and examined the patient, discussed with his nurses, his mother in the room. He is awake, a permanent to his surroundings, but looks tired. He is status post tracheostomy (01/12/2025), status post PEG tube (01/14/2025) Fentanyl 50 mcg/hour, Versed 0 mg/hour, propofol 0 mcg/min, Precedex 0.4 mcg/kg/hour Blood culture, 12/25/2024: No growth Sputum culture, 12/25/2024: Staphylococcus aureus Urine culture, 01/04/2025: Urinalysis, 12/17/2024: Unremarkable Urine drug screening, 12/17/2024: Benzo Valproic acid, 12/17/2024: 22.1 Plasma alcohol, 12/17/2024: <3 ABG, 12/18/2024: Respiratory acidosis, 12/20/2024: Acidosis, 12/22/2024: Hypoxia, 12/24/2024: Hypoxia, carbon dioxide retention, 12/25/2024: Hypoxia, carbon dioxide retention, 12/29/2024: Hypoxia, carbon dioxide retention WBC/HB/PLT/MCV, 12/20/2024: 8/12.4/233/90.4 CMP 12/18/2024: Unremarkable TBI/AST/ALT/AP, 12/20/2024: 0.7/44/45/143 EEG, 12/19/2019 10/26/24 13:15: Normal EEG, 12/23/2024: Moderately abnormal EEG Bronchoscopy 01/12/25: There were copious blood tinged secretions in the airways bilaterally Chest x-ray 12/18/2024: Endotracheal tube 0.7 cm above the rogers. Nasogastric tube in the proximal stomach Chest x-ray, 12/27/2024: 1. Stable mild multifocal bilateral pulmonary airspace disease, most notably at the lung bases. 2. Lines and tubes unchanged Chest x-ray, 12/29/2024: 1. Stable cardiomegaly, bilateral pleural effusions and moderate diffuse increased prominence of the pulmonary vasculature. 2. Right basilar pulmonary airspace disease. 3. Interval retraction of endotracheal tube as above. Remaining lines and tubes unchanged Chest x-ray, : Lines and tubes in satisfactory position. No significant interval change. CT head, 12/17/2024: No evidence of acute intracranial abnormality. If symptoms persist, consider MRI for further evaluation MR head, 12/21/2024: No evidence of acute infarction, intracranial hemorrhage, mass effect or hydrocephalus. No evidence of mesial temporal sclerosis. Pansinusitis. Prominent bilateral cervical lymph nodes. This can be further evaluated with ultrasound vital signs Vital Sign Date Time Temp Pulse Resp B/P (MAP) Pulse Ox O2 Delivery O2 Flow Rate FiO2 01/20/25 10:23 98 T-piece 10 35 Cool Aerosol 35 01/20/25 10:08 136/82 01/20/25 08:37 54 18 01/20/25 04:00 98.9 98.9 Total Intake and Output 01/19/25 01/19/25 01/20/25 15:00 23:00 07:00 Intake Total 624.24 ml 233.44 ml 185.08 ml Output Total 1000 ml 400 ml Balance 624.24 ml -766.56 ml -214.92 ml medications Current Medications Medications Dose Ordered Sig/Rick Route Start Time Stop Time Status Last Admin Dose Admin Lorazepam 1 mg Q5MINP PRN IV 12/18/24 11:00 12/23/24 08:43 1 MG Midazolam HCl 50 ml @ 1 mls/hr Q24H IV 12/18/24 21:15 01/18/25 03:09 3 MLS/HR Diagnostic Test (Pha) 1 strip Q6HR 12/19/24 12:00 01/20/25 06:01 1 STRIP Insulin Human Regular FOLLOW SLIDING SCALE Q6HR SC 12/19/24 12:00 01/18/25 23:58 2 UNITS Dextrose 50 ml UD IV 12/19/24 10:00 12/22/24 23:25 50 ML Albuterol 2.5 mg Q6HR NEB 12/19/24 18:00 01/20/25 06:19 2.5 MG Ipratropium [place] 0.5 mg Q6HR NEB 12/19/24 18:00 01/20/25 06:19 0.5 MG Pantoprazole Sodium 40 mg DAILY IV 12/21/24 10:00 01/20/25 10:05 40 MG Polyethylene Glycol 17 gm DAILY PO 12/22/24 10:00 Hold 01/07/25 09:44 17 GM Docusate Sodium 100 mg BID GT 12/22/24 10:00 01/18/25 10:09 100 MG Thiamine HCl 100 mg DAILY IV 12/24/24 10:00 01/20/25 10:05 100 MG Folic Acid 1 mg/ Dextrose 50.2 ml @ 200.8 mls/ hr DAILY INJ 12/24/24 10:00 01/20/25 10:05 200.8 MLS/HR Sodium Chloride 10 ml QSHIFT@10,22 IV 12/24/24 22:00 01/20/25 10:07 10 ML Enteral Nutritional Formula 1,000 ml 40ML/HR GT 12/27/24 16:45 01/09/25 21:00 1,000 ML Lactulose 15 ml DAILY PO 12/28/24 10:00 Hold 01/09/25 09:17 15 ML Acetaminophen 625 mg Q8HPRN PRN GT 12/31/24 16:00 01/15/25 08:14 625 MG Enoxaparin Sodium 40 mg Q12HP SC 01/10/25 22:00 01/20/25 10:07 40 MG Acetaminophen 650 mg Q8HP PRN NE 01/12/25 14:45 Hold Propofol 100 ml @ 4.038 mls/ hr Q24H IV 01/12/25 16:15 01/17/25 04:54 32.304 MLS/HR Fentanyl Citrate 250 ml @ 2.5 mls/hr Q24H IV 01/16/25 22:30 01/18/25 06:41 10 MLS/HR Furosemide 40 mg DAILY IV 01/17/25 18:00 01/20/25 10:08 40 MG Levetiracetam 100 ml @ 400 mls/hr BID IV 01/19/25 00:33 01/20/25 10:46 400 MLS/HR Piperacillin Sod/ Tazobactam Sod 100 ml @ 25 mls/hr Q6HR IV 01/20/25 12:00 objective The patient is well-nourished and well-developed with no distress. The patient is status post tracheostomy, feeding tube insertion MENTAL STATUS: Subjective CRANIAL NERVES: Pupils are equal, round and reactive. There is conjugated eye movement. Sensorimotor examined in bilateral trigeminal distribution is unremarkable, no facial weakness SENSATION: Okay to pinprick and light touch MOTOR: Normal tone in the upper and lower extremity. Normal muscle bulk. No fasciculations. He moves the arms and legs REFLEXES: Deep tendon reflexes are symmetrical. No pathological reflexes. CEREBELLAR/COORDINATION: Deferred GAIT/STATION: deferred laboratory and microbiology Laboratory Tests 01/20/25 02:31 Test 01/20/25 02:31 Range/Units Serum Glucose 99 74-106 mg/dL Problem List Come, resolved Metabolic encephalopathy Hypoxic encephalopathy Toxic encephalopathy ? Status epileptics New onset seizure, status epileptics Likely secondary to substance abuse Rule out epileptic seizure or other acute symptomatic seizure The activity witnessed on 12/23/2024 was not typical to seizure, likely myoclonus Substance abuse ? Depression Respiratory failure/hypoxia, status post tracheostomy Pneumonia ICU myopathy Dysphagia/status post feeding tube insertion Assessment/Plan Monitoring Supportive treatment Telemetry EEG Follow-up lab ICU care Stabilize vitals Respiratory support/vent management Keppra 500 mg b.i.d. for now Ativan for seizure breakthrough Need history from him directly Consider tele psych consultation Re: The previous substance abuse later More recommendation per clinical course This medical document was created using an electronic medical record system with [employer] dictation system. Although this document has been carefully reviewed, there may still be some phonetic and typographical errors. These areas are purely typographical due to imperfections of the software programs, and do not reflect any compromise in the patient's medical care. Prognosis poor Dietary Evaluation Review Comments: 1) Continue TPN to meet at least 75% estimated needs 2) TF Vital High Protein @ 60ml/hr(goal) with current rate of propofol. TF at goal volume together with propofol provides 2471 kcal (100% eenrgy needs) & 126 gm protein (100% protein needs) 3) Monitor TPN tolerance, lab values, I/O, wt trend Expected Outcomes/Goals: To meet >75% estimated needs Fu 2-3 days Plan discussed with: Other BONNY PEREZ MD Jan 20, 2025 10:56
--- NOTE | 2025-01-20 11:37 | DVHPNRES ---
Progress Note Date Seen: Jan 20, 2025 Resident Creating Document: AC GRIFFITH RESIDENT Medical Necessity Reason Pt with a Central, PICC or Fol: Yes The following are medically ne: PICC Line, Reed Catheter Reason for reed catheter: Strict I&O Subjective Review of Systems Mr. Lynn is a 24-year-old male with hypertension, chronic pain, and substance abuse disorder was admitted after new-onset seizures, reportedly due to heavy nitrous oxide use. He was intubated on 12/18/2024 following status epilepticus and placed on multiple sedatives including propofol, Versed, and fentanyl. A right IJ central line and OG tube were placed with difficulty due to body habitus. He was transferred to the ICU and maintained on deep sedation. 01/19: Tried trach collar 2 hours . On SIMV, well tolerating. Placed Dobbhoff tube., PT evaluation ordered and went upon peep 8. 01/18 night patient found to have brief episode of seizure-like activity< 30sec, so again on IV Keppra for an 500 mg b.i.d.. Patient seen and examined at the bedside. Unable to obtain complete ROS due to patient's clinical status multiple to follow commands. PTevaluated the patient shifted him to special bed is so that he can sit upright to improve breathing. Patient is well tolerating on SIMV and currently on trach collar. Respiratory cultures showed Gram-negative rods so added Zosyn. Continue monitoring. Objective vital signs Vital Sign Date Time Temp Pulse Resp B/P (MAP) Pulse Ox O2 Delivery O2 Flow Rate FiO2 01/20/25 11:15 74 29 124/78 (93) 98 01/20/25 10:23 T-piece 10 35 Cool Aerosol 35 01/20/25 08:00 97.8 97.8 Total Intake and Output 01/19/25 01/19/25 01/20/25 15:00 23:00 07:00 Intake Total 624.24 ml 233.44 ml 185.08 ml Output Total 1000 ml 400 ml Balance 624.24 ml -766.56 ml -214.92 ml medications Current Medications Medications Dose Ordered Sig/Rick Route Start Time Stop Time Status Last Admin Dose Admin Lorazepam 1 mg Q5MINP PRN IV 12/18/24 11:00 12/23/24 08:43 1 MG Midazolam HCl 50 ml @ 1 mls/hr Q24H IV 12/18/24 21:15 01/18/25 03:09 3 MLS/HR Diagnostic Test (Pha) 1 strip Q6HR 12/19/24 12:00 01/20/25 06:01 1 STRIP Insulin Human Regular FOLLOW SLIDING SCALE Q6HR SC 12/19/24 12:00 01/18/25 23:58 2 UNITS Dextrose 50 ml UD IV 12/19/24 10:00 12/22/24 23:25 50 ML Albuterol 2.5 mg Q6HR NEB 12/19/24 18:00 01/20/25 06:19 2.5 MG Ipratropium [place] 0.5 mg Q6HR NEB 12/19/24 18:00 01/20/25 06:19 0.5 MG Pantoprazole Sodium 40 mg DAILY IV 12/21/24 10:00 01/20/25 10:05 40 MG Polyethylene Glycol 17 gm DAILY PO 12/22/24 10:00 Hold 01/07/25 09:44 17 GM Docusate Sodium 100 mg BID GT 12/22/24 10:00 01/18/25 10:09 100 MG Thiamine HCl 100 mg DAILY IV 12/24/24 10:00 01/20/25 10:05 100 MG Folic Acid 1 mg/ Dextrose 50.2 ml @ 200.8 mls/ hr DAILY INJ 12/24/24 10:00 01/20/25 10:05 200.8 MLS/HR Sodium Chloride 10 ml QSHIFT@10,22 IV 12/24/24 22:00 01/20/25 10:07 10 ML Enteral Nutritional Formula 1,000 ml 40ML/HR GT 12/27/24 16:45 01/09/25 21:00 1,000 ML Lactulose 15 ml DAILY PO 12/28/24 10:00 Hold 01/09/25 09:17 15 ML Acetaminophen 625 mg Q8HPRN PRN GT 12/31/24 16:00 01/15/25 08:14 625 MG Enoxaparin Sodium 40 mg Q12HP SC 01/10/25 22:00 01/20/25 10:07 40 MG Acetaminophen 650 mg Q8HP PRN DE 01/12/25 14:45 Hold Propofol 100 ml @ 4.038 mls/ hr Q24H IV 01/12/25 16:15 01/17/25 04:54 32.304 MLS/HR Fentanyl Citrate 250 ml @ 2.5 mls/hr Q24H IV 01/16/25 22:30 01/18/25 06:41 10 MLS/HR Furosemide 40 mg DAILY IV 01/17/25 18:00 01/20/25 10:08 40 MG Levetiracetam 100 ml @ 400 mls/hr BID IV 01/19/25 00:33 01/20/25 10:46 400 MLS/HR Piperacillin Sod/ Tazobactam Sod 100 ml @ 25 mls/hr Q6HR IV 01/20/25 12:00 Examination Pt is lying on bed, RASS 0 General Appearance: Drowsy but awake and alert HEENT: Atraumatic, Mucous membranes moist/pink, tracheostomy tube in place, Dobbhoff tube in place Respiratory: Coarse bilateral breath sounds, improved, vent settings RR 20, VT 550, FiO2 30%, PEEP 8 Cardiovascular: Regular rate, Normal S1, Normal S2, No murmurs Abdominal: Active bowel sounds, Soft, no distention, Extremities: No edema, Normal pulses, No tenderness/swelling Skin: No Significant rash, except past surgical scars Neuro: Reactive pupils, gag reflex intact Psych/Mental Status: Mental status NL, Mood NL Nurse was there as cable strander during examination laboratory and microbiology Laboratory Tests 01/20/25 02:31 Test 01/20/25 02:31 Range/Units Serum Glucose 99 74-106 mg/dL Microbiology Date/Time Source Procedure Growth Status 01/18/25 19:20 Sputum Gram Stain - Final Resulted 01/18/25 19:20 Sputum Respiratory Culture - Preliminary Resulted 01/04/25 18:35 Blood Blood Culture - Final NO GROWTH AFTER 5 DAYS OF INCUBATION. Complete 01/04/25 17:00 Urine - Reed Port Urine Culture - Final Complete 12/25/24 15:20 Catheter Site Aerobic Culture - Final Staphylococcus epidermidis Complete Labs and/or images reviewed: Labs reviewed by me, Image(s) reviewed by me Problem List/Assessment/Plan Problem List/Assessment/Plan Neurology # Acute toxic/metabolic encephalopathy with new-onset or breakthrough generalized seizures, likely multifactorial: # Medication nonadherence (valproic acid level 22.1, subtherapeutic) # Possible alcohol withdrawal # Substance abuse (notably nitrous oxide) - Current minimal sedation Fentanyl, Precedex - Seizure management as below - Versed stopped - IV levetiracetam 500 mg BID - IV lorazepam PRN - Last seizure on 01/18/2025 - EEG: Largely unremarkable - Head CT & Brain MRI: No acute findings; MRI showed pansinusitis and prominent cervical lymphadenopathy - Supportive care: Received IV banana bags x2, thiamine, and folic acid - Neurology is on board for ongoing evaluation Cardiovascular # HTN # Sepsis secondary to aspiration pneumonia - Abx Vancomycin Dc -added Zosyn Respiratory # Acute hypoxic respiratory failure secondary to status epilepticus, intubated on 12/18/2024. # Probable aspiration pneumonia with MSSA isolated in both blood and respiratory cultures. # Pulmonary edema improved. # Bilateral pleural effusions noted on imaging. # Pulmonary embolism ruled out (CT angiography ordered; no DVT on Doppler). - tried trach collar today 2 times and currently on SIMV - On mechanical ventilation: VC-AC mode, RR 20, TV 550 mL, PEEP 5, FiO2 30% and tried trach collar today 2 times and currently on SIMV - Receiving ipratropium and albuterol nebulizers. - CXR: Hypoinflated lungs with bibasilar atelectasis; 12/29 CXR showed stable cardiomegaly, bilateral effusions, and right basilar airspace disease. - Antibiotics: IV Zosyn started 12/21, discontinued 01/09 - IV Vancomycin started 12/23, discontinued 01/15 - IV Lasix 40 mg daily - Therapeutic Lovenox initiated, later discontinued. - Repeat blood and sputum cultures confirmed MSSA. - Status post tracheostomy with size 8 tube placement. Trying on trach collar 2 times today and currently on SIMV - Respiratory cultures ordered, Gram-negative rods, started on Zosyn GI # Transaminitis-improving # Peptic ulcer prophylaxis # Vitamin B12 deficiency # Constipation, likely slow transit, relieved by lactose,MiraLax& Colace -Pantoprazole 40 mg IV daily - negative hepatitis-B and hepatitis-C - repleted with 1000 mcg B12 - lactulose daily - KUB: Nonobstructive bowel gas pattern. Moderate stool burden. - diet is Vital AF 40 mL -through Dobbhoff tube placed today # morbid obesity with a BMI 50.3 -nutritional counseling after extubation # Reed catheter changed yesterday -sent urinalysis Nephrology # hypernatremia, now improved # hypokalemia, now improved # hypomagnesemia #? Rhabdomyolysis-improving - serum CK - monitor -keep potassium above 4 and magnesium above 2 -replete as needed, continuously monitor lab -avoid nephrotoxic agents ID # aspiration pneumonia # sepsis due to above # right IJ catheter tip (placed on 12/18/2024, removed on 12/24/2024) culture growing staph epidermidis - pancultures - IV Zosyn discontinued on 01/09 - IV Vancomycin started 12/23, discontinued 01/15 - Tylenol as needed for fever - s/p bronchoscopy x 2 - repeat blood cultures, repeat sputum cultures, showing staph aureus-started vanc and discontinued - 01/19-repeat sputum culture showed Gram-negative rods, added Zosyn on 01/20 Hem/onc # microcytic anemia, mild - monitor Psychiatry # substance use disorder - we will consider Psychiatry consult once patient is extubated DVT prophylaxis: On Lovenox 40 mg b.i.d. Nutrition: NG start feeds again, Vital AF 40 mL Lines Right PICC placed on 12/24/24 Drips -titrating down on sedation - Versed - Stopped 01/16 - fentanyl - titrating down - propofol -stopped - Precedex Intubated on 12/18/2024 Bronchoscopy on 12/26/24 Repeat bronchoscopy on 12/28/2024 Reed on 01/04/2025 PT evaluated the patient shifted him to special bed is so that he can sit upright to improve breathing. Patient is well tolerating on SIMV and currently on trach collar. Respiratory cultures showed Gram-negative rods so added Zosyn. Continue monitoring. Critical care time including trach collar trials and monitoring is 81 minutes excluding procedure. Code status discussed greater than 29 minutes: Full CODE STATUS. Detailed discussion held with patient's mother Ms. Sabillon at bedside., addressed all concerns. Plan discussed with Dr. Iqbal, RN Plan discussed with: Patient, Other (mom and rn) My Orders My Orders Orders - AC GRIFFITH RESIDENT Procedure Category Date Status Time Kub Abdomen Single XY 01/19/25 Resulted View 17:00 Abg W/ Co-Ox RT 01/20/25 Logged 04:00 Chest Portable XY 01/20/25 Resulted 04:00 Pt Request For Service PT 01/19/25 Logged 18:16 Kub Abdomen Single XY 01/20/25 Resulted View 04:00 Piperacillin-Tazob PHA 01/20/25 In Process 3.375gm (Zosyn 3.375g 12:00 Dietary Evaluation Review Comments: 1) Continue TPN to meet at least 75% estimated needs 2) TF Vital High Protein @ 60ml/hr(goal) with current rate of propofol. TF at goal volume together with propofol provides 2471 kcal (100% eenrgy needs) & 126 gm protein (100% protein needs) 3) Monitor TPN tolerance, lab values, I/O, wt trend Expected Outcomes/Goals: To meet >75% estimated needs Fu 2-3 days Date of Service: Jan 20, 2025 Billing Provider: ANTHONY IQBAL MD Common Visit Codes: 17224-ZXOLXYOM CARE 30-74 MIN, 19722-ETCFDSDS CARE-EACH +30MIN AC GRIFFITH RESIDENT Jan 20, 2025 11:36 ANTHONY IQBAL MD Jan 23, 2025 15:20
[2025-01-20] MEDS: PIPERACILLIN-TAZOB 3.375GM 100 ML IV SCH (12:26)
--- NOTE | 2025-01-20 22:51 | DVHEEG2 ---
Neurology EEG Procedural Note Procedural Note EXAM DATE: 01/19/2025 REFERRING DOCTOR: Dr. Perez TECHNIQUE: Eighteen channels of EEG, 2 channels of EOG, and 1 channel of EKG were recorded using the International 10/20 system. CLINICAL DATA: The patient was referred for an EEG evaluation for the evidence of seizure disorder. MEDICATIONS: See the chart BACKGROUND ACTIVITY: While the patient was awake, the background activity consisted of well regulated []Hz rhythmic waveforms, symmetrically distributed over both posterior quadrants and was reactive to eye opening. ACTIVATION: Hyperventilation: Not done Photic Stimulation: Not done Sleep: Not seen IMPRESSION: This is a normal EEG. No focal, lateralized, or epileptiform features are noted. If clinically indicated to rule out a seizure disorder, recommend repeat EEG with sleep deprivation. The EKG channel showed a regular heart rate of 84/minute [place] [address] BONNY PEREZ MD Jan 20, 2025 22:51
[2025-01-21] VITALS (103 sets, daily range): BP systolic 115–154; BP diastolic 55–114; PULSE 53–98; RESP 9–39; TEMP 98.5–99.2; O2SAT 92–100
[2025-01-21 03:46] LABS: Hematocrit 34.6 % (41.0-53.0); Hemoglobin 11.6 g/dL (13.5-17.5); Mean Corpuscular Hemoglobin 29.2 pg (28.0-32.0); Mean Corpuscular Volume 87.0 fL (80.0-100.0); Nucleated Red Blood Cells % 0.0 %
[2025-01-21 04:14] LABS: Albumin 4.5 g/dL (3.2-4.8); Anion Gap 14 (5-15); BUN/Creatinine Ratio 40.9 (10.0-20.0); Blood Urea Nitrogen 18 mg/dL (9-23); Calcium 10.0 mg/dL (8.7-10.4); Carbon Dioxide 24 mmol/L (20-31); Glucose 93 mg/dL (74-106); Magnesium 1.9 mg/dL (1.6-2.6); Sodium 145 mmol/L (136-145); Total Protein 7.7 g/dL (5.7-8.2)
[2025-01-21 04:15] LABS: Alanine Aminotransferase 48 U/L (7-40); Alkaline Phosphatase 167 U/L (46-116); Bilirubin, Total 0.7 mg/dL (0.2-1.0); Chloride 107 mmol/L (98-107); Potassium 3.4 mmol/L (3.5-5.1)
--- NOTE | 2025-01-21 05:31 | DVH ---
CHEST RADIOGRAPH Indication: fu Technique: Single frontal view of the chest was obtained COMPARISON: XY CHEST PORTABLE on DOS: 01/20/25, XY CHEST PORTABLE on DOS: 01/19/25, XY CHEST PORTABLE on DOS: 01/18/25, XY CHEST XRAY 1 VIEW on DOS: 01/17/25, XY CHEST PORTABLE on DOS: 01/16/25, XY CHEST PORTABLE on DOS: 01/20/25 FINDINGS: Lines and Tubes: Right PICC terminates in the right atrium. Tracheostomy tube is unchanged. The ente alyson tube courses below the left hemidiaphragm and the tip extends outside the field of view. Lungs: The lungs are hyperinflated. Pulmonary vascular congestion. Pleura: No effusion. No pneumothorax. Cardiomediastinal contours: Enlarged Cardiovascular silhouette. Bones: No acute osseous abnormality. IMPRESSION: Stable position of the support lines and tubes. Pulmonary vascular congestion. Cardiomegaly.
[2025-01-21] MEDS: POTASSIUM CHL 20MEQ/100ML 100 ML IV SCH (05:40)
[2025-01-21 08:00] LABS: Base Excess -2.6 mmol/L (-2.0-3.0)
[2025-01-21] MEDS ORDERED: POTASSIUM CHL 20MEQ/100ML 100 ML IV ONE (08:00)
[2025-01-21] MEDS: MAGNESIUM SULFATE 1GM/100ML 100 ML IV ONE (08:40)
[2025-01-21 11:10] LABS: Urine Protein, UAD Negative (Negative)
[2025-01-21 14:30] LABS: Base Excess 0.6 mmol/L (-2.0-3.0)
--- NOTE | 2025-01-21 16:00 | DVHPNRES ---
Progress Note Date Seen: Jan 21, 2025 Resident Creating Document: AC GRIFFITH RESIDENT Medical Necessity Reason Pt with a Central, PICC or Fol: Yes The following are medically ne: PICC Line, Reed Catheter Reason for reed catheter: Strict I&O Subjective Review of Systems Mr. Lynn is a 24-year-old male with hypertension, chronic pain, and substance abuse disorder was admitted after new-onset seizures, reportedly due to heavy nitrous oxide use. He was intubated on 12/18/2024 following status epilepticus and placed on multiple sedatives including propofol, Versed, and fentanyl. A right IJ central line and OG tube were placed with difficulty due to body habitus. He was transferred to the ICU and maintained on deep sedation. 01/19: Tried trach collar 2 hours . On SIMV, well tolerating. Placed Dobbhoff tube., PT evaluation ordered and went upon peep 8. 01/18 night patient found to have brief episode of seizure-like activity< 30sec, so again on IV Keppra for an 500 mg b.i.d.. 01/20: PTevaluated the patient shifted him to special bed is so that he can sit upright to improve breathing. Patient is well tolerating on SIMV and currently on trach collar. Respiratory cultures showed Gram-negative rods so added Zosyn. Continue monitoring. Patient seen and examined at the bedside. Unable to obtain complete ROS due to patient's clinical status multiple to follow commands. But patient is giving signs that he is having discomfort at private part so we discontinued Reed's, advanced tube feedings to 40 mL/hour. We are going to try trach collar over the night as well as he tolerated. Discontinued Lasix and coming down on Precedex. Continue monitoring. Objective vital signs Vital Sign Date Time Temp Pulse Resp B/P (MAP) Pulse Ox O2 Delivery O2 Flow Rate FiO2 01/21/25 15:37 69 38 129/76 (93) 95 01/21/25 14:00 Mechanical Ventilator+ 30 30 01/21/25 12:13 10.0 01/21/25 12:00 98.7 98.7 Total Intake and Output 01/20/25 01/20/25 01/21/25 15:00 23:00 07:00 Intake Total 348.64 ml 278.44 ml 487.44 ml Output Total 1250 ml 250 ml Balance 348.64 ml -971.56 ml 237.44 ml medications Current Medications Medications Dose Ordered Sig/Rick Route Start Time Stop Time Status Last Admin Dose Admin Lorazepam 1 mg Q5MINP PRN IV 12/18/24 11:00 12/23/24 08:43 1 MG Midazolam HCl 50 ml @ 1 mls/hr Q24H IV 12/18/24 21:15 01/18/25 03:09 3 MLS/HR Diagnostic Test (Pha) 1 strip Q6HR 12/19/24 12:00 01/21/25 12:02 1 STRIP Insulin Human Regular FOLLOW SLIDING SCALE Q6HR SC 12/19/24 12:00 01/18/25 23:58 2 UNITS Dextrose 50 ml UD IV 12/19/24 10:00 12/22/24 23:25 50 ML Albuterol 2.5 mg Q6HR NEB 12/19/24 18:00 01/21/25 12:08 2.5 MG Ipratropium [place] 0.5 mg Q6HR NEB 12/19/24 18:00 01/21/25 12:08 0.5 MG Pantoprazole Sodium 40 mg DAILY IV 12/21/24 10:00 01/21/25 09:43 40 MG Polyethylene Glycol 17 gm DAILY PO 12/22/24 10:00 Hold 01/07/25 09:44 17 GM Docusate Sodium 100 mg BID GT 12/22/24 10:00 01/21/25 09:43 100 MG Sodium Chloride 10 ml QSHIFT@10,22 IV 12/24/24 22:00 01/21/25 09:45 10 ML Enteral Nutritional Formula 1,000 ml 40ML/HR GT 12/27/24 16:45 01/09/25 21:00 1,000 ML Lactulose 15 ml DAILY PO 12/28/24 10:00 Hold 01/09/25 09:17 15 ML Acetaminophen 625 mg Q8HPRN PRN GT 12/31/24 16:00 01/21/25 12:30 625 MG Enoxaparin Sodium 40 mg Q12HP SC 01/10/25 22:00 01/21/25 09:45 40 MG Acetaminophen 650 mg Q8HP PRN HI 01/12/25 14:45 Hold Propofol 100 ml @ 4.038 mls/ hr Q24H IV 01/12/25 16:15 01/17/25 04:54 32.304 MLS/HR Fentanyl Citrate 250 ml @ 2.5 mls/hr Q24H IV 01/16/25 22:30 01/20/25 21:33 2.5 MLS/HR Piperacillin Sod/ Tazobactam Sod 100 ml @ 25 mls/hr Q6HR IV 01/20/25 12:00 01/21/25 12:02 25 MLS/HR Folic Acid 1 mg DAILY PO 01/22/25 10:00 Thiamine HCl 100 mg DAILY PO 01/22/25 10:00 Purified Water 100 ml Q4HR GT 01/21/25 16:00 Examination Pt is lying on bed, RASS 0 General Appearance: Drowsy but awake and alert HEENT: Atraumatic, Mucous membranes moist/pink, tracheostomy tube in place, Dobbhoff tube in place Respiratory: Coarse bilateral breath sounds, improved, on trach collar Cardiovascular: Regular rate, Normal S1, Normal S2, No murmurs Abdominal: Active bowel sounds, Soft, no distention, Extremities: No edema, Normal pulses, No tenderness/swelling Skin: No Significant rash, except past surgical scars Neuro: Reactive pupils, gag reflex intact Psych/Mental Status: Mental status NL, Mood NL Nurse was there as skate hop during examination laboratory and microbiology Laboratory Tests 01/21/25 03:20 Test 01/21/25 03:20 Range/Units Serum Glucose 93 74-106 mg/dL Microbiology Date/Time Source Procedure Growth Status 01/18/25 19:20 Sputum Gram Stain - Final Complete 01/18/25 19:20 Respiratory Culture - Final Serratia marcescens Citrobacter koseri Complete 01/04/25 18:35 Blood Blood Culture - Final NO GROWTH AFTER 5 DAYS OF INCUBATION. Complete 01/04/25 17:00 Urine - Reed Port Urine Culture - Final Complete 12/25/24 15:20 Catheter Site Aerobic Culture - Final Staphylococcus epidermidis Complete Labs and/or images reviewed: Labs reviewed by me, Image(s) reviewed by me Problem List/Assessment/Plan Problem List/Assessment/Plan Neurology # Acute toxic/metabolic encephalopathy with new-onset or breakthrough generalized seizures, likely multifactorial: # Medication nonadherence (valproic acid level 22.1, subtherapeutic) # Possible alcohol withdrawal # Substance abuse (notably nitrous oxide) - Current minimal sedation Fentanyl, Precedex - Seizure management as below - Versed stopped - IV levetiracetam 500 mg BID - IV lorazepam PRN - Last seizure on 01/18/2025 - EEG: Largely unremarkable - Head CT & Brain MRI: No acute findings; MRI showed pansinusitis and prominent cervical lymphadenopathy - Supportive care: Received IV banana bags x2, thiamine, and folic acid - Neurology is on board for ongoing evaluation Cardiovascular # HTN # Sepsis secondary to aspiration pneumonia - Abx Vancomycin Dc -added Zosyn Respiratory # Acute hypoxic respiratory failure secondary to status epilepticus, intubated on 12/18/2024. # Probable aspiration pneumonia with MSSA isolated in both blood and respiratory cultures. # Pulmonary edema improved. # Bilateral pleural effusions noted on imaging. # Pulmonary embolism ruled out (CT angiography ordered; no DVT on Doppler). - tried trach collar today 2 times and currently on SIMV - On mechanical ventilation: VC-AC mode, RR 20, TV 550 mL, PEEP 5, FiO2 30% and try trach collar overnight as tolerated then changed to SIMV - Receiving ipratropium and albuterol nebulizers. - CXR: Hypoinflated lungs with bibasilar atelectasis; 12/29 CXR showed stable cardiomegaly, bilateral effusions, and right basilar airspace disease. - Antibiotics: IV Zosyn started 12/21, discontinued 01/09 - IV Vancomycin started 12/23, discontinued 01/15 - DC IV Lasix 40 mg - Therapeutic Lovenox initiated, later discontinued. - Repeat blood and sputum cultures confirmed MSSA. - Status post tracheostomy with size 8 tube placement. Trying on trach collar 2 times today and currently on SIMV - Respiratory cultures ordered, Gram-negative rods, started on Zosyn GI # Transaminitis-improving # Peptic ulcer prophylaxis # Vitamin B12 deficiency # Constipation, likely slow transit, relieved by lactose,MiraLax& Colace -Pantoprazole 40 mg IV daily - negative hepatitis-B and hepatitis-C - repleted with 1000 mcg B12 - lactulose daily - KUB: Nonobstructive bowel gas pattern. Moderate stool burden. - diet is Vital AF 40 mL -through Dobbhoff tube placed today # morbid obesity with a BMI 50.3 -nutritional counseling after extubation # Reed catheter changed yesterday -sent urinalysis Nephrology # hypernatremia, now improved # hypokalemia, now improved # hypomagnesemia #? Rhabdomyolysis-improving - serum CK - monitor -keep potassium above 4 and magnesium above 2 -replete as needed, continuously monitor lab -avoid nephrotoxic agents ID # aspiration pneumonia # sepsis due to above # right IJ catheter tip (placed on 12/18/2024, removed on 12/24/2024) culture growing staph epidermidis - pancultures - IV Zosyn discontinued on 01/09 - IV Vancomycin started 12/23, discontinued 01/15 - Tylenol as needed for fever - s/p bronchoscopy x 2 - repeat blood cultures, repeat sputum cultures, showing staph aureus-started vanc and discontinued - 01/19-repeat sputum culture showed Gram-negative rods, added Zosyn on 01/20 Hem/onc # microcytic anemia, mild - monitor Psychiatry # substance use disorder - we will consider Psychiatry consult once patient is extubated DVT prophylaxis: On Lovenox 40 mg b.i.d. Nutrition: NG start feeds again, Vital AF 40 mL Lines Right PICC placed on 12/24/24 Drips -titrating down on sedation - Versed - Stopped 01/16 - fentanyl - titrating down - propofol -stopped - Precedex Intubated on 12/18/2024 Bronchoscopy on 12/26/24 Repeat bronchoscopy on 12/28/2024 Reed on 01/04/2025 PT evaluated the patient shifted him to special bed is so that he can sit upright to improve breathing. Patient is well tolerating on SIMV and currently on trach collar. Respiratory cultures showed Gram-negative rods so added Zosyn. Continue monitoring. Critical care time 73 minutes excluding procedure. Code status discussed greater than 29 minutes: Full CODE STATUS. Detailed discussion held with patient's mother Ms. Sabillon at bedside., addressed all concerns. Plan discussed with Dr. New regarding trying trach collar all over the night as he tolerated and changed back to SIMV and discontinuation of Lasix. Plan discussed with: Other (rn and mom) My Orders My Orders Orders - AC GRIFFITH RESIDENT Procedure Category Date Status Time Folic Acid Tablet PHA 01/22/25 In Process 10:00 Thiamine Tab PHA 01/22/25 In Process 10:00 Abg W/ Co-Ox RT 01/21/25 Logged 13:34 Free Water PHA 01/21/25 In Process 16:00 Discontinue Reed JADIEL 01/21/25 In Process Catheter 15:09 Complete Blood Count LAB 01/22/25 Verified 04:00 Comprehensive LAB 01/22/25 Verified Metabolic Panel 04:00 Magnesium LAB 01/22/25 Verified 04:00 Chest Portable XY 01/22/25 Logged 04:00 Abg W/ Co-Ox RT 01/22/25 Logged 04:00 Dietary Evaluation Review Comments: 1) Continue TPN to meet at least 75% estimated needs 2) TF Vital High Protein @ 60ml/hr(goal) with current rate of propofol. TF at goal volume together with propofol provides 2471 kcal (100% eenrgy needs) & 126 gm protein (100% protein needs) 3) Monitor TPN tolerance, lab values, I/O, wt trend Expected Outcomes/Goals: To meet >75% estimated needs Fu 2-3 days AC GRIFFITH RESIDENT Jan 21, 2025 15:59
[2025-01-21] MEDS: FREE WATER GT SCH (16:01)
--- NOTE | 2025-01-21 22:59 | DVHPN2 ---
Progress Note - Dictate Date Seen: Jan 21, 2025 Medical Necessity Reason Pt with a Central, PICC or Fol: Yes The following are medically ne: PICC Line, Reed Catheter Reason for reed catheter: Strict I&O Subjective Mr. Perry is a 24 years old right-handed gentleman with a history of hypertension, pain syndrome, substance abuse, he was admitted to the [facility] on 12/17/2024 for new onset seizure activity. I have seen and examined the patient, discussed with his nurses. He is awake, on T-bar, responsive to his surroundings properly, he can write on communication board He is status post tracheostomy (01/12/2025), status post PEG tube (01/14/2025) Blood culture, 12/25/2024: No growth Sputum culture, 12/25/2024: Staphylococcus aureus Urine culture, 01/04/2025: Urinalysis, 12/17/2024: Unremarkable Urine drug screening, 12/17/2024: Benzo Valproic acid, 12/17/2024: 22.1 Plasma alcohol, 12/17/2024: <3 ABG, 12/18/2024: Respiratory acidosis, 12/20/2024: Acidosis, 12/22/2024: Hypoxia, 12/24/2024: Hypoxia, carbon dioxide retention, 12/25/2024: Hypoxia, carbon dioxide retention, 12/29/2024: Hypoxia, carbon dioxide retention WBC/HB/PLT/MCV, 12/20/2024: 8/12.4/233/90.4 CMP 12/18/2024: Unremarkable TBI/AST/ALT/AP, 12/20/2024: 0.7/44/45/143 EEG, 12/19/2019 10/26/24 13:15: Normal EEG, 12/23/2024: Moderately abnormal EEG Bronchoscopy 01/12/25: There were copious blood tinged secretions in the airways bilaterally Chest x-ray 12/18/2024: Endotracheal tube 0.7 cm above the rogers. Nasogastric tube in the proximal stomach Chest x-ray, 12/27/2024: 1. Stable mild multifocal bilateral pulmonary airspace disease, most notably at the lung bases. 2. Lines and tubes unchanged Chest x-ray, 12/29/2024: 1. Stable cardiomegaly, bilateral pleural effusions and moderate diffuse increased prominence of the pulmonary vasculature. 2. Right basilar pulmonary airspace disease. 3. Interval retraction of endotracheal tube as above. Remaining lines and tubes unchanged Chest x-ray, : Lines and tubes in satisfactory position. No significant interval change. CT head, 12/17/2024: No evidence of acute intracranial abnormality. If symptoms persist, consider MRI for further evaluation MR head, 12/21/2024: No evidence of acute infarction, intracranial hemorrhage, mass effect or hydrocephalus. No evidence of mesial temporal sclerosis. Pansinusitis. Prominent bilateral cervical lymph nodes. This can be further evaluated with ultrasound vital signs Vital Sign Date Time Temp Pulse Resp B/P (MAP) Pulse Ox O2 Delivery O2 Flow Rate FiO2 01/21/25 21:30 98.7 01/21/25 20:00 24 92 Mechanical Ventilator+ 30 30 01/21/25 20:00 70 01/21/25 19:15 139/83 (101) 01/21/25 18:43 10 Total Intake and Output 01/20/25 01/20/25 01/21/25 15:00 23:00 07:00 Intake Total 348.64 ml 278.44 ml 487.44 ml Output Total 1250 ml 250 ml Balance 348.64 ml -971.56 ml 237.44 ml medications Current Medications Medications Dose Ordered Sig/Rick Route Start Time Stop Time Status Last Admin Dose Admin Lorazepam 1 mg Q5MINP PRN IV 12/18/24 11:00 12/23/24 08:43 1 MG Midazolam HCl 50 ml @ 1 mls/hr Q24H IV 12/18/24 21:15 01/18/25 03:09 3 MLS/HR Diagnostic Test (Pha) 1 strip Q6HR 12/19/24 12:00 01/21/25 17:36 1 STRIP Insulin Human Regular FOLLOW SLIDING SCALE Q6HR SC 12/19/24 12:00 01/18/25 23:58 2 UNITS Dextrose 50 ml UD IV 12/19/24 10:00 12/22/24 23:25 50 ML Albuterol 2.5 mg Q6HR NEB 12/19/24 18:00 01/21/25 18:43 2.5 MG Ipratropium [place] 0.5 mg Q6HR NEB 12/19/24 18:00 01/21/25 18:43 0.5 MG Pantoprazole Sodium 40 mg DAILY IV 12/21/24 10:00 01/21/25 09:43 40 MG Polyethylene Glycol 17 gm DAILY PO 12/22/24 10:00 Hold 01/07/25 09:44 17 GM Docusate Sodium 100 mg BID GT 12/22/24 10:00 01/21/25 09:43 100 MG Sodium Chloride 10 ml QSHIFT@10,22 IV 12/24/24 22:00 01/21/25 21:49 10 ML Enteral Nutritional Formula 1,000 ml 40ML/HR GT 12/27/24 16:45 01/09/25 21:00 1,000 ML Lactulose 15 ml DAILY PO 12/28/24 10:00 Hold 01/09/25 09:17 15 ML Acetaminophen 625 mg Q8HPRN PRN GT 12/31/24 16:00 01/21/25 20:30 625 MG Enoxaparin Sodium 40 mg Q12HP SC 01/10/25 22:00 01/21/25 21:49 40 MG Acetaminophen 650 mg Q8HP PRN AR 01/12/25 14:45 Hold Propofol 100 ml @ 4.038 mls/ hr Q24H IV 01/12/25 16:15 01/17/25 04:54 32.304 MLS/HR Fentanyl Citrate 250 ml @ 2.5 mls/hr Q24H IV 01/16/25 22:30 01/20/25 21:33 2.5 MLS/HR Piperacillin Sod/ Tazobactam Sod 100 ml @ 25 mls/hr Q6HR IV 01/20/25 12:00 01/21/25 17:20 25 MLS/HR Folic Acid 1 mg DAILY PO 01/22/25 10:00 Thiamine HCl 100 mg DAILY PO 01/22/25 10:00 Purified Water 100 ml Q4HR GT 01/21/25 16:00 01/21/25 21:49 100 ML Ondansetron HCl 4 mg Q6HPRN PRN IV 01/21/25 19:15 objective The patient is well-nourished and well-developed with no distress. The patient is status post tracheostomy, feeding tube insertion MENTAL STATUS: Subjective CRANIAL NERVES: Pupils are equal, round and reactive. There is conjugated eye movement. Sensorimotor examined in bilateral trigeminal distribution is unremarkable, no facial weakness SENSATION: Okay to pinprick and light touch MOTOR: Normal tone in the upper and lower extremity. Normal muscle bulk. No fasciculations. He moves the arms and legs REFLEXES: Deep tendon reflexes are symmetrical. No pathological reflexes. CEREBELLAR/COORDINATION: Deferred GAIT/STATION: deferred laboratory and microbiology Laboratory Tests 01/21/25 03:20 Test 01/21/25 03:20 Range/Units Serum Glucose 93 74-106 mg/dL Problem List Come, resolved Metabolic encephalopathy Hypoxic encephalopathy Toxic encephalopathy ? Status epileptics New onset seizure, status epileptics Likely secondary to substance abuse Rule out epileptic seizure or other acute symptomatic seizure The activity witnessed on 12/23/2024 was not typical to seizure, likely myoclonus Substance abuse ? Depression Respiratory failure/hypoxia, status post tracheostomy Pneumonia ICU myopathy Dysphagia/status post feeding tube insertion Assessment/Plan Monitoring Supportive treatment Telemetry Follow-up lab ICU care Stabilize vitals Respiratory support Keppra 500 mg b.i.d. for now Ativan for seizure breakthrough Need history from him directly Consider tele psych consultation Re: The previous substance abuse later More recommendation per clinical course This medical document was created using an electronic medical record system with [employer] computerized dictation system. Although this document has been carefully reviewed, there may still be some phonetic and typographical errors. These areas are purely typographical due to imperfections of the software programs, and do not reflect any compromise in the patient's medical care. Prognosis poor Dietary Evaluation Review Comments: 1) Continue TPN to meet at least 75% estimated needs 2) TF Vital High Protein @ 60ml/hr(goal) with current rate of propofol. TF at goal volume together with propofol provides 2471 kcal (100% eenrgy needs) & 126 gm protein (100% protein needs) 3) Monitor TPN tolerance, lab values, I/O, wt trend Expected Outcomes/Goals: To meet >75% estimated needs Fu 2-3 days Plan discussed with: Other BONNY PEREZ MD Jan 21, 2025 22:59
[2025-01-22] VITALS (69 sets, daily range): BP systolic 120–174; BP diastolic 62–112; PULSE 56–98; RESP 11–44; TEMP 98.6–99.5; O2SAT 92–99
[2025-01-22 03:53] LABS: Hematocrit 36.5 % (41.0-53.0); Hemoglobin 12.4 g/dL (13.5-17.5); Mean Corpuscular Hemoglobin 29.5 pg (28.0-32.0); Mean Corpuscular Volume 86.9 fL (80.0-100.0); Nucleated Red Blood Cells % 0.0 %
[2025-01-22 04:28] LABS: Albumin 4.7 g/dL (3.2-4.8); Anion Gap 16 (5-15); BUN/Creatinine Ratio 31.8 (10.0-20.0); Blood Urea Nitrogen 14 mg/dL (9-23); Calcium 10.1 mg/dL (8.7-10.4); Carbon Dioxide 25 mmol/L (20-31); Chloride 103 mmol/L (98-107); Glucose 96 mg/dL (74-106); Magnesium 1.8 mg/dL (1.6-2.6); Sodium 144 mmol/L (136-145); Total Protein 7.8 g/dL (5.7-8.2)
[2025-01-22 04:29] LABS: Bilirubin, Total 0.7 mg/dL (0.2-1.0)
[2025-01-22 04:31] LABS: Alanine Aminotransferase 65 U/L (7-40); Alkaline Phosphatase 169 U/L (46-116); Potassium 3.4 mmol/L (3.5-5.1)
[2025-01-22] MEDS: POTASSIUM CHL 20MEQ/100ML 100 ML IV SCH (05:37)
--- NOTE | 2025-01-22 06:35 | DVH ---
INDICATION: fufu TECHNIQUE: Single frontal view of the chest was obtained COMPARISON: XY CHEST PORTABLE on DOS: 01/21/25, XY CHEST PORTABLE on DOS: 01/20/25, XY CHEST PORTABLE on DOS: 01/19/25, XY CHEST PORTABLE on DOS: 01/18/25, XY CHEST XRAY 1 VIEW on DOS: 01/17/25, XY CHEST PORTABLE on DOS: 01/21/25 FINDINGS: Lines and Tubes: Right PICC terminates in the right atrium. Tracheostomy tube is unchanged. The ente alyson tube courses below the left hemidiaphragm and the tip extends outside the field of view. Lungs: The lungs are hyperinflated. Pulmonary vascular congestion. Pleura: No effusion. No pneumothorax. Cardiomediastinal contours: Enlarged Cardiovascular silhouette. Bones: No acute osseous abnormality. IMPRESSION: Stable position of the support lines and tubes. Pulmonary vascular congestion. Cardiomegaly.
[2025-01-22 08:47] LABS: Base Excess 2.2 mmol/L (-2.0-3.0)
[2025-01-22] MEDS: FOLIC ACID 1 MG TAB PO SCH (11:06)
[2025-01-22] MEDS: THIAMINE HCL 100 MG TAB PO SCH (11:06)
[2025-01-22] MEDS: ONDANSETRON HCL 4 MG/2 ML VIAL IV PRN (13:50)
--- NOTE | 2025-01-22 15:32 | DVHPN2 ---
Progress Note - Dictate Date Seen: Jan 22, 2025 Medical Necessity Reason Pt with a Central, PICC or Fol: Yes The following are medically ne: PICC Line, Reed Catheter Reason for reed catheter: Strict I&O vital signs Vital Sign Date Time Temp Pulse Resp B/P (MAP) Pulse Ox O2 Delivery O2 Flow Rate FiO2 01/22/25 15:00 68 25 134/79 (97) 96 01/22/25 14:00 T-piece 10 35 35 01/22/25 12:00 99.0 99.0 Total Intake and Output 01/21/25 01/21/25 01/22/25 15:00 23:00 07:00 Intake Total 159.048 ml 276.721 ml 524.720 ml Output Total 600 ml 300 ml Balance 159.048 ml -323.279 ml 224.720 ml medications Current Medications Medications Dose Ordered Sig/Rick Route Start Time Stop Time Status Last Admin Dose Admin Lorazepam 1 mg Q5MINP PRN IV 12/18/24 11:00 12/23/24 08:43 1 MG Midazolam HCl 50 ml @ 1 mls/hr Q24H IV 12/18/24 21:15 01/18/25 03:09 3 MLS/HR Diagnostic Test (Pha) 1 strip Q6HR 12/19/24 12:00 01/22/25 11:06 1 STRIP Insulin Human Regular FOLLOW SLIDING SCALE Q6HR SC 12/19/24 12:00 01/18/25 23:58 2 UNITS Dextrose 50 ml UD IV 12/19/24 10:00 12/22/24 23:25 50 ML Albuterol 2.5 mg Q6HR NEB 12/19/24 18:00 01/22/25 11:30 2.5 MG Ipratropium [place] 0.5 mg Q6HR NEB 12/19/24 18:00 01/22/25 11:30 0.5 MG Pantoprazole Sodium 40 mg DAILY IV 12/21/24 10:00 01/22/25 11:05 40 MG Polyethylene Glycol 17 gm DAILY PO 12/22/24 10:00 Hold 01/07/25 09:44 17 GM Docusate Sodium 100 mg BID GT 12/22/24 10:00 01/21/25 09:43 100 MG Sodium Chloride 10 ml QSHIFT@10,22 IV 12/24/24 22:00 01/22/25 11:06 10 ML Enteral Nutritional Formula 1,000 ml 40ML/HR GT 12/27/24 16:45 01/09/25 21:00 1,000 ML Lactulose 15 ml DAILY PO 12/28/24 10:00 Hold 01/09/25 09:17 15 ML Acetaminophen 625 mg Q8HPRN PRN GT 12/31/24 16:00 01/21/25 20:30 625 MG Enoxaparin Sodium 40 mg Q12HP SC 01/10/25 22:00 01/22/25 11:05 40 MG Acetaminophen 650 mg Q8HP PRN [place] 01/12/25 14:45 Hold Propofol 100 ml @ 4.038 mls/ hr Q24H IV 01/12/25 16:15 01/17/25 04:54 32.304 MLS/HR Fentanyl Citrate 250 ml @ 2.5 mls/hr Q24H IV 01/16/25 22:30 01/20/25 21:33 2.5 MLS/HR Piperacillin Sod/ Tazobactam Sod 100 ml @ 25 mls/hr Q6HR IV 01/20/25 12:00 01/22/25 12:30 25 MLS/HR Folic Acid 1 mg DAILY PO 01/22/25 10:00 01/22/25 11:06 1 MG Thiamine HCl 100 mg DAILY PO 01/22/25 10:00 01/22/25 11:06 100 MG Purified Water 100 ml Q4HR GT 01/21/25 16:00 01/22/25 14:07 100 ML Ondansetron HCl 4 mg Q6HPRN PRN IV 01/21/25 19:15 laboratory and microbiology Laboratory Tests 01/22/25 03:29 Test 01/22/25 03:29 Range/Units Serum Glucose 96 74-106 mg/dL 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 Acute hypoxemic respiratory failure S/p tracheostomy Altered mental status Pneumonia Seizures Patient seen and examined in ICU Events S/p tracheostomy Off mechanical ventilation x2 days NG tube remains in place Labs and imaging reviewed ABG reviewed Management Supplemental oxygen Titrate to maintain sats 90% or above Trach care per RT protocols Continue antibiotics Bronchodilators Monitor renal function Monitor electrolytes Supplement as needed Antiepileptics as ordered Okay to downgrade from pulmonary standpoint DVT prophylaxis Critical care time 35 minutes Dietary Evaluation Review Comments: 1) Continue TPN to meet at least 75% estimated needs 2) TF Vital High Protein @ 60ml/hr(goal) with current rate of propofol. TF at goal volume together with propofol provides 2471 kcal (100% eenrgy needs) & 126 gm protein (100% protein needs) 3) Monitor TPN tolerance, lab values, I/O, wt trend Expected Outcomes/Goals: To meet >75% estimated needs Fu 2-3 days Plan discussed with: Other (Rn) LI DUFFY MD Jan 22, 2025 15:32
[2025-01-22] MEDS: ACETYLCYSTEINE 20%(200MG/ML) SOL 4ML NEB SCH (18:30)
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
[2025-01-23] VITALS (65 sets, daily range): BP systolic 119–177; BP diastolic 64–100; PULSE 54–97; RESP 12–35; TEMP 98.1–98.8; O2SAT 88–100
[2025-01-23 04:08] LABS: Hematocrit 37.2 % (41.0-53.0); Hemoglobin 12.8 g/dL (13.5-17.5); Mean Corpuscular Hemoglobin 29.6 pg (28.0-32.0); Mean Corpuscular Volume 85.7 fL (80.0-100.0); Nucleated Red Blood Cells % 0.1 %
[2025-01-23 04:21] LABS: Anion Gap 13 (5-15); Carbon Dioxide 27 mmol/L (20-31); Chloride 102 mmol/L (98-107); Sodium 142 mmol/L (136-145)
[2025-01-23 04:22] LABS: Calcium 10.2 mg/dL (8.7-10.4)
[2025-01-23 04:24] LABS: Potassium 3.2 mmol/L (3.5-5.1)
[2025-01-23 04:27] LABS: BUN/Creatinine Ratio 23.3 (10.0-20.0); Blood Urea Nitrogen 10 mg/dL (9-23); Glucose 91 mg/dL (74-106)
[2025-01-23] MEDS: LOPERAMIDE 1 mg/7.5ml ORAL soln GT PRN (05:11)
[2025-01-23 06:35] LABS: Base Excess 3.4 mmol/L (-2.0-3.0)
[2025-01-23] MEDS: POTASSIUM CHL 20MEQ/100ML 100 ML IV SCH (06:40)
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
[2025-01-23 16:36] LABS: Chloride 102 mmol/L (98-107); Potassium 4.7 mmol/L (3.5-5.1); Sodium 142 mmol/L (136-145)
[2025-01-23 16:37] LABS: Anion Gap 12 (5-15); Carbon Dioxide 28 mmol/L (20-31)
[2025-01-23 16:41] LABS: Calcium 10.9 mg/dL (8.7-10.4)
[2025-01-23 16:42] LABS: Glucose 92 mg/dL (74-106)
[2025-01-23 16:43] LABS: BUN/Creatinine Ratio 21.3 (10.0-20.0); Blood Urea Nitrogen 10 mg/dL (9-23); Magnesium 1.7 mg/dL (1.6-2.6)
--- NOTE | 2025-01-23 17:18 | DVHPN2 ---
Progress Note - Dictate Date Seen: Jan 23, 2025 Medical Necessity Reason Pt with a Central, PICC or Fol: Yes The following are medically ne: PICC Line, Reed Catheter Reason for reed catheter: Strict I&O vital signs Vital Sign Date Time Temp Pulse Resp B/P (MAP) Pulse Ox O2 Delivery O2 Flow Rate FiO2 01/23/25 16:43 98 T-piece 8 30 Cool Aerosol 30 01/23/25 16:00 98.6 78 29 153/78 (103) 98.6 Total Intake and Output 01/22/25 01/22/25 01/23/25 15:00 23:00 07:00 Intake Total 300.860 ml 550 ml 830 ml Output Total 1000 ml 480 ml Balance 300.860 ml -450 ml 350 ml medications Current Medications Medications Dose Ordered Sig/Rick Route Start Time Stop Time Status Last Admin Dose Admin Lorazepam 1 mg Q5MINP PRN IV 12/18/24 11:00 12/23/24 08:43 1 MG Midazolam HCl 50 ml @ 1 mls/hr Q24H IV 12/18/24 21:15 01/18/25 03:09 3 MLS/HR Diagnostic Test (Pha) 1 strip Q6HR 12/19/24 12:00 01/23/25 12:10 1 STRIP Insulin Human Regular FOLLOW SLIDING SCALE Q6HR SC 12/19/24 12:00 01/18/25 23:58 2 UNITS Dextrose 50 ml UD IV 12/19/24 10:00 12/22/24 23:25 50 ML Albuterol 2.5 mg Q6HR NEB 12/19/24 18:00 01/23/25 11:53 2.5 MG Ipratropium [place] 0.5 mg Q6HR NEB 12/19/24 18:00 01/23/25 11:53 0.5 MG Pantoprazole Sodium 40 mg DAILY IV 12/21/24 10:00 01/23/25 10:13 40 MG Polyethylene Glycol 17 gm DAILY PO 12/22/24 10:00 Hold 01/07/25 09:44 17 GM Docusate Sodium 100 mg BID GT 12/22/24 10:00 01/21/25 09:43 100 MG Sodium Chloride 10 ml QSHIFT@, IV 12/24/24 22:00 01/23/25 09:35 10 ML Enteral Nutritional Formula 1,000 ml 40ML/HR GT 12/27/24 16:45 01/22/25 21:11 1,000 ML Lactulose 15 ml DAILY PO 12/28/24 10:00 Hold 01/09/25 09:17 15 ML Acetaminophen 625 mg Q8HPRN PRN GT 12/31/24 16:00 01/23/25 05:11 625 MG Enoxaparin Sodium 40 mg Q12HP SC 01/10/25 22:00 01/23/25 09:35 40 MG Acetaminophen 650 mg Q8HP PRN [place] 01/12/25 14:45 Hold Propofol 100 ml @ 4.038 mls/ hr Q24H IV 01/12/25 16:15 01/17/25 04:54 32.304 MLS/HR Fentanyl Citrate 250 ml @ 2.5 mls/hr Q24H IV 01/16/25 22:30 01/20/25 21:33 2.5 MLS/HR Piperacillin Sod/ Tazobactam Sod 100 ml @ 25 mls/hr Q6HR IV 01/20/25 12:00 01/23/25 16:47 25 MLS/HR Folic Acid 1 mg DAILY PO 01/22/25 10:00 01/23/25 09:34 1 MG Thiamine HCl 100 mg DAILY PO 01/22/25 10:00 01/23/25 09:35 100 MG Purified Water 100 ml Q4HR GT 01/21/25 16:00 01/23/25 16:46 100 ML Ondansetron HCl 4 mg Q6HPRN PRN IV 01/21/25 19:15 01/22/25 13:50 4 MG Loperamide HCl 2 mg PRN PRN GT 01/22/25 15:15 01/23/25 05:11 2 MG Acetylcysteine 600 mg Q12HR NEB 01/22/25 22:00 01/23/25 06:05 600 MG laboratory and microbiology Laboratory Tests 01/23/25 16:10 01/23/25 03:40 Test 01/23/25 16:10 Range/Units Serum Glucose 92 74-106 mg/dL Assessment/Plan Packing Machine Can Feeder rounds Impression Acute hypoxemic respiratory failure S/p tracheostomy Altered mental status Pneumonia Seizures Patient seen and examined in ICU Events S/p tracheostomy Off mechanical ventilation x3 days Able to transfer to chair Labs and imaging reviewed ABG reviewed Management Supplemental oxygen Titrate to maintain sats 90% or above Trach care per RT protocols Continue antibiotics Bronchodilators Monitor renal function Monitor electrolytes Supplement as needed Antiepileptics as ordered Okay to downgrade from pulmonary standpoint DVT prophylaxis Critical care time 35 minutes Dietary Evaluation Review Comments: 1) Continue TPN to meet at least 75% estimated needs 2) TF Vital High Protein @ 60ml/hr(goal) with current rate of propofol. TF at goal volume together with propofol provides 2471 kcal (100% eenrgy needs) & 126 gm protein (100% protein needs) 3) Monitor TPN tolerance, lab values, I/O, wt trend Expected Outcomes/Goals: To meet >75% estimated needs Fu 2-3 days Plan discussed with: Patient LI DUFFY MD Jan 23, 2025 17:18
[2025-01-24] VITALS (34 sets, daily range): BP systolic 118–153; BP diastolic 62–98; PULSE 44–126; RESP 9–35; TEMP 98–98.9; O2SAT 90–100
[2025-01-24] MEDS: PIPERACILLIN-TAZOB 3.375GM 100 ML IV ONE (05:52)
[2025-01-24] MEDS: ACETYLCYSTEINE 20%(200MG/ML) SOL 4ML ONE ×2 (06:20→18:18)
[2025-01-24] MEDS: BUDESONIDE (INHALATION) 0.5 MG/2 ML NEB ONE (06:20)
[2025-01-24] MEDS: IPRATROPIUM BROM 0.5 MG/2.5ML INH SOL ONE ×2 (06:21→18:18)
[2025-01-24] MEDS: ALBUTEROL SULF 2.5 MG/0.5ML(0.5%) NEB SOLN ONE ×2 (06:21→18:18)
[2025-01-24 07:51] LABS: Anion Gap 15 (5-15); Carbon Dioxide 25 mmol/L (20-31); Chloride 102 mmol/L (98-107); Potassium 3.6 mmol/L (3.5-5.1); Sodium 142 mmol/L (136-145)
[2025-01-24 07:57] LABS: BUN/Creatinine Ratio 22.2 (10.0-20.0); Blood Urea Nitrogen 10 mg/dL (9-23); Glucose 88 mg/dL (74-106)
[2025-01-24 07:58] LABS: Magnesium 1.6 mg/dL (1.6-2.6)
[2025-01-24 07:59] LABS: Calcium 10.6 mg/dL (8.7-10.4)
[2025-01-24 09:21] LABS: Base Excess -0.6 mmol/L (-2.0-3.0)
[2025-01-24] MEDS: MAGNESIUM SULFATE 1GM/100ML 100 ML IV SCH (09:29)
[2025-01-24] MEDS: cefTRIAXone 1GM/50ML D5W 50 ML IV SCH (09:30)
[2025-01-24] MEDS: cefTRIAXone 1GM/50ML D5W 50 ML IV ONE ×3 (09:40→18:09)
[2025-01-24] MEDS: MAGNESIUM SULFATE 1GM/100ML 300 ML IV ONE (09:40)
--- NOTE | 2025-01-24 10:45 | DVH ---
EXAM: XY CHEST XRAY 1 VIEW Indication: fu Technique: Single frontal view of the chest was obtained Comparison: XY CHEST PORTABLE on DOS: 01/22/25, XY CHEST PORTABLE on DOS: 01/21/25, XY CHEST PORTABLE on DOS: 01/20/25, XY CHEST PORTABLE on DOS: 01/19/25, XY CHEST PORTABLE on DOS: 01/18/25 FINDINGS: Lines and Tubes: Tracheostomy tube is visualized. Right PICC tip projects over the cavoatrial junctio n. Enteric tube is not well visualized on this exam due to technique. Lungs: Low lung volumes. Improved interstitial opacities. Pleura: No effusion. No pneumothorax. Cardiomediastinal contours: Unremarkable Bones: No acute osseous abnormality. IMPRESSION: Improved interstitial opacities compared to prior exam.
--- NOTE | 2025-01-24 11:25 | ECG ---
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
[2025-01-24] MEDS ORDERED: POTASSIUM CHL 20MEQ/100ML 100 ML IV ONE (12:00)
[2025-01-24] MEDS: POTASSIUM CHL 20MEQ/100ML 100 ML IV ONE ×2 (13:47→13:50)
--- NOTE | 2025-01-24 13:49 | ECG ---
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
--- NOTE | 2025-01-24 17:27 | DVHPNRES ---
Progress Note Date Seen: Jan 24, 2025 Resident Creating Document: AC GRIFFITH RESIDENT Medical Necessity Reason Pt with a Central, PICC or Fol: Yes The following are medically ne: PICC Line, Reed Catheter Reason for reed catheter: Strict I&O Subjective Review of Systems Mr. Lynn is a 24-year-old male with hypertension, chronic pain, and substance abuse disorder was admitted after new-onset seizures, reportedly due to heavy nitrous oxide use. He was intubated on 12/18/2024 following status epilepticus and placed on multiple sedatives including propofol, Versed, and fentanyl. A right IJ central line and OG tube were placed with difficulty due to body habitus. He was transferred to the ICU and maintained on deep sedation. 01/19: Tried trach collar 2 hours . On SIMV, well tolerating. Placed Dobbhoff tube., PT evaluation ordered and went upon peep 8. 01/18 night patient found to have brief episode of seizure-like activity< 30sec, so again on IV Keppra for an 500 mg b.i.d.. 01/20: PTevaluated the patient shifted him to special bed is so that he can sit upright to improve breathing. Patient is well tolerating on SIMV and currently on trach collar. Respiratory cultures showed Gram-negative rods so added Zosyn. Continue monitoring. 01/21-01/23 : Discontinued Reed's, advanced tube feedings to 40 mL/hour. We are going to try trach collar over the night as well as he tolerated. Discontinued Lasix and coming down on Precedex. Continue monitoring. Patient was on T-piece without any difficulties and tolerating well. Discontinued Precedex. Patient seen and examined at the bedside. Unable to obtain complete ROS due to patient's clinical status multiple to follow commands. Patient's respiratory culture showed Serratia and Citrobacter which is sensitive to ceftriaxone, discontinued Zosyn and added ceftriaxone 2 g. Trying speaking valve today. Patient reporting some itchiness on his body, given Benadryl. Objective vital signs Vital Sign Date Time Temp Pulse Resp B/P (MAP) Pulse Ox O2 Delivery O2 Flow Rate FiO2 01/24/25 16:00 62 01/24/25 16:00 15 99 T-piece 8 30 30 01/24/25 16:00 98.7 152/88 (109) 98.7 Total Intake and Output 01/23/25 01/23/25 01/24/25 14:59 22:59 06:59 Intake Total 175 ml 566 ml 300 ml Output Total 450 ml 250 ml Balance 175 ml 116 ml 50 ml medications Current Medications Medications Dose Ordered Sig/Rick Route Start Time Stop Time Status Last Admin Dose Admin Lorazepam 1 mg Q5MINP PRN IV 12/18/24 11:00 12/23/24 08:43 1 MG Diagnostic Test (Pha) 1 strip Q6HR 12/19/24 12:00 01/24/25 12:42 1 STRIP Insulin Human Regular FOLLOW SLIDING SCALE Q6HR SC 12/19/24 12:00 01/18/25 23:58 2 UNITS Dextrose 50 ml UD IV 12/19/24 10:00 12/22/24 23:25 50 ML Albuterol 2.5 mg Q6HR NEB 12/19/24 18:00 01/24/25 12:02 2.5 MG Ipratropium [place] 0.5 mg Q6HR NEB 12/19/24 18:00 01/24/25 12:02 0.5 MG Pantoprazole Sodium 40 mg DAILY IV 12/21/24 10:00 01/24/25 10:12 40 MG Polyethylene Glycol 17 gm DAILY PO 12/22/24 10:00 Hold 01/07/25 09:44 17 GM Docusate Sodium 100 mg BID GT 12/22/24 10:00 01/23/25 21:39 100 MG Enteral Nutritional Formula 1,000 ml 40ML/HR GT 12/27/24 16:45 01/22/25 21:11 1,000 ML Lactulose 15 ml DAILY PO 12/28/24 10:00 Hold 01/09/25 09:17 15 ML Acetaminophen 625 mg Q8HPRN PRN GT 12/31/24 16:00 01/23/25 21:38 625 MG Enoxaparin Sodium 40 mg Q12HP SC 01/10/25 22:00 01/24/25 10:27 40 MG Acetaminophen 650 mg Q8HP PRN ME 01/12/25 14:45 Hold Folic Acid 1 mg DAILY PO 01/22/25 10:00 01/24/25 12:41 1 MG Thiamine HCl 100 mg DAILY PO 01/22/25 10:00 01/24/25 12:41 100 MG Purified Water 100 ml Q4HR GT 01/21/25 16:00 01/24/25 14:04 100 ML Ondansetron HCl 4 mg Q6HPRN PRN IV 01/21/25 19:15 01/23/25 22:13 4 MG Loperamide HCl 2 mg PRN PRN GT 01/22/25 15:15 01/23/25 05:11 2 MG Acetylcysteine 600 mg Q12HR NEB 01/22/25 22:00 01/24/25 10:00 600 MG Ceftriaxone Sodium 50 ml @ 100 mls/hr DAILY@09 IV 01/24/25 09:00 01/24/25 09:30 100 MLS/HR Examination Pt is lying on bed, General Appearance: awake and alert HEENT: Atraumatic, Mucous membranes moist/pink, tracheostomy tube in place, Dobbhoff tube in place Respiratory: Coarse bilateral breath sounds, improved, on trach peace Cardiovascular: Regular rate, Normal S1, Normal S2, No murmurs Abdominal: Active bowel sounds, Soft, no distention, Extremities: No edema, Normal pulses, No tenderness/swelling Skin: No Significant rash, except past surgical scars Neuro: No sensory motor deficits noted Nurse was there as steam train driver during examination laboratory and microbiology Laboratory Tests 01/24/25 06:40 01/23/25 03:40 Test 01/24/25 06:40 Range/Units Serum Glucose 88 74-106 mg/dL Microbiology Date/Time Source Procedure Growth Status 01/18/25 19:20 Sputum Gram Stain - Final Complete 01/18/25 19:20 Respiratory Culture - Final Serratia marcescens Citrobacter koseri Complete 01/04/25 18:35 Blood Blood Culture - Final NO GROWTH AFTER 5 DAYS OF INCUBATION. Complete 01/04/25 17:00 Urine - Reed Port Urine Culture - Final Complete 12/25/24 15:20 Catheter Site Aerobic Culture - Final Staphylococcus epidermidis Complete Labs and/or images reviewed: Labs reviewed by me, Image(s) reviewed by me Problem List/Assessment/Plan Problem List/Assessment/Plan Neurology # Acute toxic/metabolic encephalopathy with new-onset or breakthrough generalized seizures, likely multifactorial: # Medication nonadherence (valproic acid level 22.1, subtherapeutic) # Possible alcohol withdrawal # Substance abuse (notably nitrous oxide) - Dc'd Fentanyl, Precedex - Seizure management as below - Versed stopped - IV levetiracetam 500 mg BID Dc'd - IV lorazepam PRN - Last seizure on 01/18/2025 - EEG: Largely unremarkable - Head CT & Brain MRI: No acute findings; MRI showed pansinusitis and prominent cervical lymphadenopathy - Supportive care: Received IV banana bags x2, thiamine, and folic acid - Neurology is on board for ongoing evaluation Cardiovascular # HTN # Sepsis secondary to aspiration pneumonia - Abx Vancomycin Dc - Zosyn changed to rocephin 2g Respiratory # Acute hypoxic respiratory failure secondary to status epilepticus, intubated on 12/18/2024. # Probable aspiration pneumonia with MSSA isolated in both blood and respiratory cultures. # Serratia and Citrobacter pneumonia # Pulmonary edema improved. # Bilateral pleural effusions noted on imaging. # Pulmonary embolism ruled out (CT angiography ordered; no DVT on Doppler). -currently on T-piece, tolerating well for last 48 hours - Receiving ipratropium and albuterol nebulizers. - CXR: Hypoinflated lungs with bibasilar atelectasis; 12/29 CXR showed stable cardiomegaly, bilateral effusions, and right basilar airspace disease., recent CXR showing improvement from the past changes - Antibiotics: IV Zosyn started 12/21, discontinued 01/09 - IV Vancomycin started 12/23, discontinued 01/15 - DC IV Lasix 40 mg - Therapeutic Lovenox initiated, later discontinued. - Repeat blood and sputum cultures confirmed MSSA. - Status post tracheostomy with size 8 tube placement. Currently on T-piece - Respiratory cultures ordered, Gram-negative rods, started on Zosyn -final respiratory culture showed Serratia and Citrobacter, added Rocephin 2 g and discontinued Zosyn 01/24/2025 GI # Transaminitis-improving # Peptic ulcer prophylaxis # Vitamin B12 deficiency # Constipation, likely slow transit, relieved by lactose,MiraLax& Colace -Pantoprazole 40 mg IV daily - negative hepatitis-B and hepatitis-C - repleted with 1000 mcg B12 - lactulose daily - KUB: Nonobstructive bowel gas pattern. Moderate stool burden. - diet is Vital AF 40 mL -through Dobbhoff tube placed today # morbid obesity with a BMI 50.3 -nutritional counseling after extubation # Reed catheter changed yesterday -sent urinalysis Nephrology # hypernatremia, now improved # hypokalemia, now improved # hypomagnesemia #? Rhabdomyolysis-improving - serum CK - monitor -keep potassium above 4 and magnesium above 2 -replete as needed, continuously monitor lab -avoid nephrotoxic agents ID # aspiration pneumonia # sepsis due to above # right IJ catheter tip (placed on 12/18/2024, removed on 12/24/2024) culture growing staph epidermidis - pancultures - IV Zosyn discontinued on 01/09 - IV Vancomycin started 12/23, discontinued 01/15 - Tylenol as needed for fever - s/p bronchoscopy x 2 - repeat blood cultures, repeat sputum cultures, showing staph aureus-started vanc and discontinued - 01/19-repeat sputum culture showed Gram-negative rods, added Zosyn on 01/20 --final respiratory culture showed Serratia and Citrobacter, added Rocephin 2 g and discontinued Zosyn 01/24/2025 Hem/onc # microcytic anemia, mild - monitor Psychiatry # substance use disorder - we will consider Psychiatry consult once patient is extubated DVT prophylaxis: On Lovenox 40 mg b.i.d. Nutrition: NG start feeds again, Vital AF 40 mL Lines Right PICC placed on 12/24/24 Drips -titrating down on sedation - Versed - Stopped 01/16 - fentanyl - DC on 01/16/2025 - propofol -stopped - Precedex-DC done 01/16/2025 Intubated on 12/18/2024 Bronchoscopy on 12/26/24 Repeat bronchoscopy on 12/28/2024 Reed on 01/04/2025 Critical care time 53 minutes excluding procedure. Code status discussed greater than 29 minutes: Full CODE STATUS. Detailed discussion held with patient's mother Ms. Sabillon at bedside., addressed all concerns. Plan discussed with Dr. Iqbal and rn. Plan discussed with: Patient, Other (mom and rn) My Orders My Orders Orders - AC GRIFFITH RESIDENT Procedure Category Date Status Time Abg W/ Co-Ox RT 01/24/25 Logged 08:12 Chest Xray 1 View XY 01/24/25 Resulted 08:12 Electrocardigram EKG 01/24/25 Logged 13:46 Electrocardigram EKG 01/24/25 Logged 13:46 Potassium LAB 01/24/25 Logged 16:02 Magnesium LAB 01/24/25 Logged 16:02 Complete Blood Count LAB 01/25/25 Verified 04:00 Comprehensive LAB 01/25/25 Verified Metabolic Panel 04:00 Magnesium LAB 01/25/25 Verified 04:00 Chest Portable XY 01/25/25 Transmitted 04:00 Ceftriaxone 1gm/50ml PHA 01/24/25 Logged D5w (Rocephin) 17:30 Ceftriaxone Ivpb PHA 01/25/25 Transmitted Rocephin 10:00 Dietary Evaluation Review Comments: 1) Continue TPN to meet at least 75% estimated needs 2) TF Vital High Protein @ 60ml/hr(goal) with current rate of propofol. TF at goal volume together with propofol provides 2471 kcal (100% eenrgy needs) & 126 gm protein (100% protein needs) 3) Monitor TPN tolerance, lab values, I/O, wt trend Expected Outcomes/Goals: To meet >75% estimated needs Fu 2-3 days Date of Service: Jan 24, 2025 Billing Provider: ANTHONY IQBAL MD Common Visit Codes: [id number] CARE 30-74 MIN AC GRIFFITH RESIDENT Jan 24, 2025 17:27 ANTHONY IQBAL MD Jan 25, 2025 16:23
[2025-01-24 18:18] LABS: Potassium 4.2 mmol/L (3.5-5.1)
[2025-01-24 18:25] LABS: Magnesium 1.9 mg/dL (1.6-2.6)
[2025-01-24] MEDS: diphenhdrAMINE HCL 50 MG/1 ML VL IV PRN (20:35)
[2025-01-24] MEDS: MAGNESIUM SULFATE 1GM/100ML 100 ML IV ONE (20:35)
--- NOTE | 2025-01-24 23:18 | DVHPN2 ---
Progress Note - Dictate Date Seen: Jan 25, 2025 Medical Necessity Reason Pt with a Central, PICC or Fol: Yes The following are medically ne: PICC Line, Reed Catheter Reason for reed catheter: Strict I&O Subjective Mr. Perry is a 24 years old right-handed gentleman with a history of hypertension, pain syndrome, substance abuse, he was admitted to the [facility] on 12/17/2024 for new onset seizure activity. I have seen and examined the patient, discussed with his nurses. He is alert, fully oriented, he can maintain good conversation He reports he abused nitric oxide before he came to the hospital He denies a history of seizure disorder, but recently he has spells of spacing out, become less responsive or nonresponsive to his surroundings a few times weekly. He does not remember what happened to him before he came to hospital, year only remember passing out Blood culture, 12/25/2024: No growth Sputum culture, 12/25/2024: Staphylococcus aureus Urine culture, 01/04/2025: Urinalysis, 12/17/2024: Unremarkable Urine drug screening, 12/17/2024: Benzo Valproic acid, 12/17/2024: 22.1 Plasma alcohol, 12/17/2024: <3 ABG, 12/18/2024: Respiratory acidosis, 12/20/2024: Acidosis, 12/22/2024: Hypoxia, 12/24/2024: Hypoxia, carbon dioxide retention, 12/25/2024: Hypoxia, carbon dioxide retention, 12/29/2024: Hypoxia, carbon dioxide retention WBC/HB/PLT/MCV, 12/20/2024: 8/12.4/233/90.4 CMP 12/18/2024: Unremarkable TBI/AST/ALT/AP, 12/20/2024: 0.7/44/45/143 EEG, 12/19/2019 10/26/24 13:15: Normal EEG, 12/23/2024: Moderately abnormal EEG Bronchoscopy 01/12/25: There were copious blood tinged secretions in the airways bilaterally Chest x-ray 12/18/2024: Endotracheal tube 0.7 cm above the rogers. Nasogastric tube in the proximal stomach Chest x-ray, 12/27/2024: 1. Stable mild multifocal bilateral pulmonary airspace disease, most notably at the lung bases. 2. Lines and tubes unchanged Chest x-ray, 12/29/2024: 1. Stable cardiomegaly, bilateral pleural effusions and moderate diffuse increased prominence of the pulmonary vasculature. 2. Right basilar pulmonary airspace disease. 3. Interval retraction of endotracheal tube as above. Remaining lines and tubes unchanged Chest x-ray, : Lines and tubes in satisfactory position. No significant interval change. CT head, 12/17/2024: No evidence of acute intracranial abnormality. If symptoms persist, consider MRI for further evaluation MR head, 12/21/2024: No evidence of acute infarction, intracranial hemorrhage, mass effect or hydrocephalus. No evidence of mesial temporal sclerosis. Pansinusitis. Prominent bilateral cervical lymph nodes. This can be further evaluated with ultrasound vital signs Vital Sign Date Time Temp Pulse Resp B/P (MAP) Pulse Ox O2 Delivery O2 Flow Rate FiO2 01/24/25 22:00 13 99 Trach Collar 6 28 Cool Aerosol 28 01/24/25 22:00 104 01/24/25 20:00 98.7 118/77 (91) 98.7 Total Intake and Output 01/23/25 01/23/25 01/24/25 15:00 23:00 07:00 Intake Total 100 ml 566 ml 300 ml Output Total 450 ml 250 ml Balance 100 ml 116 ml 50 ml medications Current Medications Medications Dose Ordered Sig/Rick Route Start Time Stop Time Status Last Admin Dose Admin Lorazepam 1 mg Q5MINP PRN IV 12/18/24 11:00 12/23/24 08:43 1 MG Diagnostic Test (Pha) 1 strip Q6HR 12/19/24 12:00 01/24/25 18:09 1 STRIP Insulin Human Regular FOLLOW SLIDING SCALE Q6HR SC 12/19/24 12:00 01/18/25 23:58 2 UNITS Dextrose 50 ml UD IV 12/19/24 10:00 12/22/24 23:25 50 ML Albuterol 2.5 mg Q6HR NEB 12/19/24 18:00 01/24/25 18:17 2.5 MG Ipratropium [place] 0.5 mg Q6HR NEB 12/19/24 18:00 01/24/25 18:17 0.5 MG Pantoprazole Sodium 40 mg DAILY IV 12/21/24 10:00 01/24/25 10:12 40 MG Polyethylene Glycol 17 gm DAILY PO 12/22/24 10:00 Hold 01/07/25 09:44 17 GM Docusate Sodium 100 mg BID GT 12/22/24 10:00 01/23/25 21:39 100 MG Enteral Nutritional Formula 1,000 ml 40ML/HR GT 12/27/24 16:45 01/24/25 19:08 1,000 ML Lactulose 15 ml DAILY PO 12/28/24 10:00 Hold 01/09/25 09:17 15 ML Acetaminophen 625 mg Q8HPRN PRN GT 12/31/24 16:00 01/24/25 20:35 625 MG Enoxaparin Sodium 40 mg Q12HP SC 01/10/25 22:00 01/24/25 21:54 40 MG Acetaminophen 650 mg Q8HP PRN [place] 01/12/25 14:45 Hold Folic Acid 1 mg DAILY PO 01/22/25 10:00 01/24/25 12:41 1 MG Thiamine HCl 100 mg DAILY PO 01/22/25 10:00 01/24/25 12:41 100 MG Purified Water 100 ml Q4HR GT 01/21/25 16:00 01/24/25 22:00 100 ML Ondansetron HCl 4 mg Q6HPRN PRN IV 01/21/25 19:15 01/23/25 22:13 4 MG Loperamide HCl 2 mg PRN PRN GT 01/22/25 15:15 01/23/25 05:11 2 MG Acetylcysteine 600 mg Q12HR NEB 01/22/25 22:00 01/24/25 10:00 600 MG Ceftriaxone Sodium/Dextrose 50 ml @ 50 mls/hr DAILY IV 01/25/25 10:00 Diphenhydramine HCl 25 mg Q4HP PRN IV 01/24/25 18:15 01/24/25 20:35 25 MG objective The patient is well-nourished and well-developed with no distress. The patient is status post tracheostomy, feeding tube insertion MENTAL STATUS: Subjective CRANIAL NERVES: Pupils are equal, round and reactive. There is conjugated eye movement. Sensorimotor examined in bilateral trigeminal distribution is unremarkable, no facial weakness SENSATION: Fine to pinprick and light touch MOTOR: Normal tone in the upper and lower extremity. Normal muscle bulk. No fasciculations. He moves the arms and legs REFLEXES: Deep tendon reflexes are symmetrical. No pathological reflexes. CEREBELLAR/COORDINATION: No ataxia GAIT/STATION: deferred laboratory and microbiology Laboratory Tests 01/24/25 17:33 01/24/25 06:40 01/23/25 03:40 Test 01/24/25 06:40 Range/Units Serum Glucose 88 74-106 mg/dL Problem List Come, resolved Metabolic encephalopathy Hypoxic encephalopathy Toxic encephalopathy ? Status epileptics New onset seizure, status epileptics Likely secondary to substance abuse ? Partial complex seizure ? Grand mal seizure The activity witnessed on 12/23/2024 was not typical to seizure, likely myoclonus Substance/NO abuse ? Depression Respiratory failure/hypoxia, status post tracheostomy Pneumonia ICU myopathy Assessment/Plan Monitoring Supportive treatment Telemetry Keppra 500 mg b.i.d. Ativan for seizure breakthrough Need history from him directly Consider tele psych consultation Re: The previous substance abuse later More recommendation per clinical course This medical document was created using an electronic medical record system with [employer] dictation system. Although this document has been carefully reviewed, there may still be some phonetic and typographical errors. These areas are purely typographical due to imperfections of the software programs, and do not reflect any compromise in the patient's medical care. Prognosis poor Dietary Evaluation Review Comments: 1) Continue TPN to meet at least 75% estimated needs 2) TF Vital High Protein @ 60ml/hr(goal) with current rate of propofol. TF at goal volume together with propofol provides 2471 kcal (100% eenrgy needs) & 126 gm protein (100% protein needs) 3) Monitor TPN tolerance, lab values, I/O, wt trend Expected Outcomes/Goals: To meet >75% estimated needs Fu 2-3 days Plan discussed with: Patient, Other BONNY PEREZ MD Jan 24, 2025 23:18
[2025-01-25] VITALS (61 sets, daily range): BP systolic 110–160; BP diastolic 60–96; PULSE 66–126; RESP 10–39; TEMP 97.9–99; O2SAT 90–100
--- NOTE | 2025-01-25 05:10 | DVH ---
CHEST RADIOGRAPH Indication: f/u Technique: Single frontal view of the chest was obtained COMPARISON: XY CHEST XRAY 1 VIEW on DOS: 01/24/25, XY CHEST PORTABLE on DOS: 01/22/25, XY CHEST PORTABLE on DOS: 01/21/25, XY CHEST PORTABLE on DOS: 01/20/25, XY CHEST PORTABLE on DOS: 01/19/25 FINDINGS: Lines and Tubes: Tracheostomy and enteric catheter in satisfactory position Lungs: Congestion Pleura: No effusion. No pneumothorax. Cardiomediastinal contours: Cardiomegaly Bones: Unremarkable IMPRESSION: Lines and tubes in satisfactory position. No significant interval change.
[2025-01-25 06:25] LABS: Hematocrit 41.7 % (41.0-53.0); Hemoglobin 13.7 g/dL (13.5-17.5); Mean Corpuscular Hemoglobin 29.3 pg (28.0-32.0); Mean Corpuscular Volume 89.0 fL (80.0-100.0); Nucleated Red Blood Cells % 0.0 %
[2025-01-25 06:51] LABS: Anion Gap 12 (5-15); BUN/Creatinine Ratio 20.9 (10.0-20.0); Blood Urea Nitrogen 9 mg/dL (9-23); Calcium 10.0 mg/dL (8.7-10.4); Carbon Dioxide 27 mmol/L (20-31); Chloride 101 mmol/L (98-107); Glucose 83 mg/dL (74-106); Potassium 3.8 mmol/L (3.5-5.1); Sodium 140 mmol/L (136-145)
[2025-01-25 06:52] LABS: Magnesium 1.9 mg/dL (1.6-2.6); Total Protein 7.7 g/dL (5.7-8.2)
[2025-01-25 06:53] LABS: Albumin 4.7 g/dL (3.2-4.8)
[2025-01-25 06:54] LABS: Alanine Aminotransferase 82 U/L (7-40); Alkaline Phosphatase 141 U/L (46-116); Bilirubin, Total 0.9 mg/dL (0.2-1.0)
[2025-01-25] MEDS: IPRATROPIUM BROM 0.5 MG/2.5ML INH SOL ONE (06:58)
[2025-01-25] MEDS: ALBUTEROL SULF 2.5 MG/0.5ML(0.5%) NEB SOLN ONE (06:58)
[2025-01-25] MEDS: cefTRIAXone 2GM/50ML D5W 50 ML IV SCH (10:01)
[2025-01-25] MEDS: MAGNESIUM SULFATE 1GM/100ML 100 ML IV ONE (12:00)
[2025-01-25] MEDS ORDERED: ACETAMINOPHEN 650 mg PER 20.3 mL UD GT PRN ×2 (12:15)
[2025-01-25] MEDS: IBUPROFEN 400 MG TAB PO PRN (14:12)
--- NOTE | 2025-01-25 17:15 | DVHPNRES ---
Progress Note Date Seen: Jan 25, 2025 Resident Creating Document: AC GRIFFITH RESIDENT Medical Necessity Reason Pt with a Central, PICC or Fol: Yes The following are medically ne: PICC Line, Reed Catheter Reason for reed catheter: Strict I&O Subjective Review of Systems Mr. Lynn is a 24-year-old male with hypertension, chronic pain, and substance abuse disorder was admitted after new-onset seizures, reportedly due to heavy nitrous oxide use. He was intubated on 12/18/2024 following status epilepticus and placed on multiple sedatives including propofol, Versed, and fentanyl. A right IJ central line and OG tube were placed with difficulty due to body habitus. He was transferred to the ICU and maintained on deep sedation. 01/19: Tried trach collar 2 hours . On SIMV, well tolerating. Placed Dobbhoff tube., PT evaluation ordered and went upon peep 8. 01/18 night patient found to have brief episode of seizure-like activity< 30sec, so again on IV Keppra for an 500 mg b.i.d.. 01/20: PTevaluated the patient shifted him to special bed is so that he can sit upright to improve breathing. Patient is well tolerating on SIMV and currently on trach collar. Respiratory cultures showed Gram-negative rods so added Zosyn. Continue monitoring. 01/21-01/23 : Discontinued Reed's, advanced tube feedings to 40 mL/hour. We are going to try trach collar over the night as well as he tolerated. Discontinued Lasix and coming down on Precedex. Continue monitoring. Patient was on T-piece without any difficulties and tolerating well. Discontinued Precedex. 01/24 Patient seen and examined at the bedside. Unable to obtain complete ROS due to patient's clinical status multiple to follow commands. Patient's respiratory culture showed Serratia and Citrobacter which is sensitive to ceftriaxone, discontinued Zosyn and added ceftriaxone 2 g. Trying speaking valve today. Patient reporting some itchiness on his body, given Benadryl Patient seen and examined at the bedside. Patient reported improvement in his symptoms, currently reported she he has been having some ankle pain and he has been having some difficulties with the walking so ordered ankle x-ray. Patient may need rehab. Passes swallow eval, given soft diet. Remove NG tube Patient reports: Feels better Objective vital signs Vital Sign Date Time Temp Pulse Resp B/P (MAP) Pulse Ox O2 Delivery O2 Flow Rate FiO2 01/25/25 16:00 Room Air* 0 21 01/25/25 14:00 114 01/25/25 13:30 15 01/25/25 13:15 100 01/25/25 12:00 99.0 99.0 Total Intake and Output 01/24/25 01/24/25 01/25/25 14:59 22:59 06:59 Intake Total 400 ml 520 ml 300 ml Output Total 200 ml 400 ml Balance 400 ml 320 ml -100 ml medications Current Medications Medications Dose Ordered Sig/Rick Route Start Time Stop Time Status Last Admin Dose Admin Lorazepam 1 mg Q5MINP PRN IV 12/18/24 11:00 12/23/24 08:43 1 MG Diagnostic Test (Pha) 1 strip Q6HR 12/19/24 12:00 01/25/25 12:00 1 STRIP Insulin Human Regular FOLLOW SLIDING SCALE Q6HR SC 12/19/24 12:00 01/18/25 23:58 2 UNITS Dextrose 50 ml UD IV 12/19/24 10:00 12/22/24 23:25 50 ML Albuterol 2.5 mg Q6HR NEB 12/19/24 18:00 01/25/25 11:24 2.5 MG Ipratropium [place] 0.5 mg Q6HR NEB 12/19/24 18:00 01/25/25 11:24 0.5 MG Pantoprazole Sodium 40 mg DAILY IV 12/21/24 10:00 01/24/25 10:12 40 MG Enoxaparin Sodium 40 mg Q12HP SC 01/10/25 22:00 01/25/25 10:01 40 MG Folic Acid 1 mg DAILY PO 01/22/25 10:00 01/25/25 10:01 1 MG Thiamine HCl 100 mg DAILY PO 01/22/25 10:00 01/25/25 10:01 100 MG Ondansetron HCl 4 mg Q6HPRN PRN IV 01/21/25 19:15 01/23/25 22:13 4 MG Acetylcysteine 600 mg Q12HR NEB 01/22/25 22:00 01/25/25 06:51 600 MG Ceftriaxone Sodium/Dextrose 50 ml @ 50 mls/hr DAILY IV 01/25/25 10:00 01/25/25 10:01 50 MLS/HR Diphenhydramine HCl 25 mg Q4HP PRN IV 01/24/25 18:15 01/24/25 20:35 25 MG Ibuprofen 400 mg Q6HP PRN PO 01/25/25 11:45 01/25/25 14:12 400 MG Acetaminophen 625 mg Q8HPRN PRN GT 01/25/25 12:15 Examination Pt is lying on bed General Appearance: Alert, Oriented X3, Cooperative, Not in acute distress HEENT: Atraumatic, Mucous membranes moist/pink Respiratory: Clear to auscultation, Normal air movement, No added sounds Cardiovascular: Regular rate, Normal S1, Normal S2, No murmurs Abdominal: Active bowel sounds, Soft, no distention, no tenderness Extremities: No edema, Normal pulses, No tenderness/swelling Skin: No Significant rash, except past surgical scars Neuro: Normal speech, sensorimotor deficits none, But some numbness in right lower extremity near ankle Psych/Mental Status: Mental status NL, Mood NL Nurse was there as administrative office manager during examination laboratory and microbiology Laboratory Tests 01/25/25 05:27 Test 01/25/25 05:27 Range/Units Serum Glucose 83 74-106 mg/dL Microbiology Date/Time Source Procedure Growth Status 01/18/25 19:20 Sputum Gram Stain - Final Complete 01/18/25 19:20 Respiratory Culture - Final Serratia marcescens Citrobacter koseri Complete 01/04/25 18:35 Blood Blood Culture - Final NO GROWTH AFTER 5 DAYS OF INCUBATION. Complete 01/04/25 17:00 Urine - Reed Port Urine Culture - Final Complete 12/25/24 15:20 Catheter Site Aerobic Culture - Final Staphylococcus epidermidis Complete Labs and/or images reviewed: Labs reviewed by me, Image(s) reviewed by me Problem List/Assessment/Plan Problem List/Assessment/Plan Neurology # Acute toxic/metabolic encephalopathy with new-onset or breakthrough generalized seizures, likely multifactorial: # Medication nonadherence (valproic acid level 22.1, subtherapeutic) # Possible alcohol withdrawal # Substance abuse (notably nitrous oxide) - Dc'd Fentanyl, Precedex - Seizure management as below - Versed stopped - IV levetiracetam 500 mg BID Dc'd - IV lorazepam PRN - Last seizure on 01/18/2025 - EEG: Largely unremarkable - Head CT & Brain MRI: No acute findings; MRI showed pansinusitis and prominent cervical lymphadenopathy - Supportive care: Received IV banana bags x2, thiamine, and folic acid - Neurology is on board for ongoing evaluation Cardiovascular # HTN # Sepsis secondary to aspiration pneumonia - Abx Vancomycin Dc - Zosyn changed to rocephin 2g Respiratory # Acute hypoxic respiratory failure secondary to status epilepticus, intubated on 12/18/2024. # Probable aspiration pneumonia with MSSA isolated in both blood and respiratory cultures. # Serratia and Citrobacter pneumonia # Pulmonary edema improved. # Bilateral pleural effusions noted on imaging. # Pulmonary embolism ruled out (CT angiography ordered; no DVT on Doppler). -currently on T-piece, tolerating well for last 48 hours - Receiving ipratropium and albuterol nebulizers. - CXR: Hypoinflated lungs with bibasilar atelectasis; 12/29 CXR showed stable cardiomegaly, bilateral effusions, and right basilar airspace disease., recent CXR showing improvement from the past changes - Antibiotics: IV Zosyn started 12/21, discontinued 01/09 - IV Vancomycin started 12/23, discontinued 01/15 - DC IV Lasix 40 mg - Therapeutic Lovenox initiated, later discontinued. - Repeat blood and sputum cultures confirmed MSSA. - Status post tracheostomy with size 8 tube placement. Currently on T-piece - Respiratory cultures ordered, Gram-negative rods, started on Zosyn -final respiratory culture showed Serratia and Citrobacter, added Rocephin 2 g and discontinued Zosyn 01/24/2025 GI # Transaminitis-improving # Peptic ulcer prophylaxis # Vitamin B12 deficiency # Constipation, likely slow transit, relieved by lactose,MiraLax& Colace -Pantoprazole 40 mg IV daily - negative hepatitis-B and hepatitis-C - repleted with 1000 mcg B12 - lactulose daily - KUB: Nonobstructive bowel gas pattern. Moderate stool burden. - diet is Vital AF 40 mL -through Dobbhoff tube placed today # morbid obesity with a BMI 50.3 -nutritional counseling after extubation # Reed catheter removed Nephrology # hypernatremia, now improved # hypokalemia, now improved # hypomagnesemia #? Rhabdomyolysis-improving - serum CK - monitor -keep potassium above 4 and magnesium above 2 -replete as needed, continuously monitor lab -avoid nephrotoxic agents ID # aspiration pneumonia # sepsis due to above # right IJ catheter tip (placed on 12/18/2024, removed on 12/24/2024) culture growing staph epidermidis - pancultures - IV Zosyn discontinued on 01/09 - IV Vancomycin started 12/23, discontinued 01/15 - Tylenol as needed for fever - s/p bronchoscopy x 2 - repeat blood cultures, repeat sputum cultures, showing staph aureus-started vanc and discontinued - 01/19-repeat sputum culture showed Gram-negative rods, added Zosyn on 01/20 --final respiratory culture showed Serratia and Citrobacter, added Rocephin 2 g and discontinued Zosyn 01/24/2025 Hem/onc # microcytic anemia, mild - monitor Psychiatry # substance use disorder - we will consider Psychiatry consult once patient is extubated MSK # ? foot drop DVT prophylaxis: On Lovenox 40 mg b.i.d. Nutrition: DC NG and started on mechanical soft. Lines Right PICC placed on 12/24/24 Drips -titrating down on sedation - Versed - Stopped 01/16 - fentanyl - DC on 01/16/2025 - propofol -stopped - Precedex-DC done 01/16/2025 Intubated on 12/18/2024 Bronchoscopy on 12/26/24 Repeat bronchoscopy on 12/28/2024 Reed on 01/04/2025 Critical care time 63 minutes excluding procedure. Code status discussed greater than 29 minutes: Full CODE STATUS. Detailed discussion held with patient's mother Ms. Sabillon at bedside., addressed all concerns. Plan discussed with Dr. Iqbal and rn. Plan discussed with: Patient, Other (mom) My Orders My Orders Orders - AC GRIFFITH RESIDENT Procedure Category Date Status Time Chest Portable XY 01/25/25 Resulted 04:00 Ceftriaxone 2gm/50ml PHA 01/25/25 In Process D5w (Rocephin 2gm/5 10:00 Diphenhdramine PHA 01/24/25 In Process Injection (Benadryl 18:15 R Ankle 2 View Xray XY 01/25/25 Logged 16:55 L Ankle 2 View Xray XY 01/25/25 Logged 16:55 Complete Blood Count LAB 01/26/25 Verified 04:00 Comprehensive LAB 8/13/25 Verified Metabolic Panel 04:00 Magnesium LAB 01/26/25 Verified 04:00 Chest Portable XY 01/26/25 Logged 04:00 Dietary Evaluation Review Comments: 1) Continue TPN to meet at least 75% estimated needs 2) TF Vital High Protein @ 60ml/hr(goal) with current rate of propofol. TF at goal volume together with propofol provides 2471 kcal (100% eenrgy needs) & 126 gm protein (100% protein needs) 3) Monitor TPN tolerance, lab values, I/O, wt trend Expected Outcomes/Goals: To meet >75% estimated needs Fu 2-3 days Date of Service: Jan 25, 2025 Billing Provider: ANTHONY IQBAL MD Common Visit Codes: 11840-[id number] CARE 30-74 MIN AC GRIFFITH RESIDENT Jan 25, 2025 17:15 ANTHONY IQBAL MD Jan 26, 2025 16:21
--- NOTE | 2025-01-25 19:53 | DVH ---
EXAM: XY R ANKLE 2 VIEW XRAY REASON FOR EXAM: PAIN AND TENDER ANKLES TECHNIQUE: AP and lateral views of the right ankle are submitted for review. COMPARISON: None FINDINGS: The bones demonstrate normal mineralization. There is no acute fracture or dislocation. Th e joint spaces are grossly maintained. There is no widening of the ankle mortise. The soft tissues a re within normal limits. IMPRESSION: No acute fracture or dislocation.
--- NOTE | 2025-01-25 19:54 | DVH ---
EXAM: XY L ANKLE 2 VIEW XRAY REASON FOR EXAM: PAIN AND TENDER BOTH ANKLES TECHNIQUE: AP and lateral views of the left ankle are submitted for review. COMPARISON: None FINDINGS: The bones demonstrate normal mineralization. There is no acute fracture or dislocation. The re is no widening of the ankle mortise. The soft tissues are grossly unremarkable. IMPRESSION: No acute fracture or dislocation.
[2025-01-26] VITALS (32 sets, daily range): BP systolic 119–158; BP diastolic 64–101; PULSE 62–151; RESP 12–28; TEMP 98–98.3; O2SAT 96–100
--- NOTE | 2025-01-26 05:14 | DVH ---
CHEST RADIOGRAPH Indication: FU Technique: Single frontal view of the chest was obtained COMPARISON: XY CHEST PORTABLE on DOS: 01/25/25, XY CHEST XRAY 1 VIEW on DOS: 01/24/25, XY CHEST PORTABL E on DOS: 01/22/25, XY CHEST PORTABLE on DOS: 01/21/25, XY CHEST PORTABLE on DOS: 01/20/25 FINDINGS: Lines and Tubes: Tracheostomy and right PICC in satisfactory position. Lungs: Congestion Pleura: No effusion. No pneumothorax. Cardiomediastinal contours: Unremarkable Bones: Unremarkable IMPRESSION: Mild congestion. Tracheostomy and right PICC in satisfactory position
[2025-01-26 05:40] LABS: Hematocrit 40.7 % (41.0-53.0); Hemoglobin 13.8 g/dL (13.5-17.5); Mean Corpuscular Hemoglobin 29.1 pg (28.0-32.0); Mean Corpuscular Volume 86.1 fL (80.0-100.0); Nucleated Red Blood Cells % 0.0 %
[2025-01-26 05:57] LABS: Albumin 4.8 g/dL (3.2-4.8); Anion Gap 14 (5-15); Calcium 10.3 mg/dL (8.7-10.4); Carbon Dioxide 25 mmol/L (20-31); Chloride 102 mmol/L (98-107); Glucose 105 mg/dL (74-106); Magnesium 1.9 mg/dL (1.6-2.6); Potassium 3.5 mmol/L (3.5-5.1); Sodium 141 mmol/L (136-145); Total Protein 7.8 g/dL (5.7-8.2)
[2025-01-26 05:58] LABS: BUN/Creatinine Ratio 21.3 (10.0-20.0); Bilirubin, Total 0.5 mg/dL (0.2-1.0); Blood Urea Nitrogen 10 mg/dL (9-23)
[2025-01-26 06:01] LABS: Alanine Aminotransferase 95 U/L (7-40); Alkaline Phosphatase 140 U/L (46-116)
[2025-01-26] MEDS: LOPERAMIDE HCL 2 MG CAP/TAB PO ONE (09:05)
[2025-01-26] MEDS: MAGNESIUM SULFATE 1GM/100ML 100 ML IV ONE (09:14)
[2025-01-26] MEDS: KETOROLAC TROMETH 30 MG/ML 1ML VIAL IV ONE (12:45)
--- NOTE | 2025-01-26 16:53 | DVHPNRES ---
Progress Note Date Seen: Jan 26, 2025 Resident Creating Document: AC GRIFFITH RESIDENT Medical Necessity Reason Pt with a Central, PICC or Fol: Yes The following are medically ne: PICC Line Subjective Review of Systems Mr. Lynn is a 24-year-old male with hypertension, chronic pain, and substance abuse disorder was admitted after new-onset seizures, reportedly due to heavy nitrous oxide use. He was intubated on 12/18/2024 following status epilepticus and placed on multiple sedatives including propofol, Versed, and fentanyl. A right IJ central line and OG tube were placed with difficulty due to body habitus. He was transferred to the ICU and maintained on deep sedation. 01/19: Tried trach collar 2 hours . On SIMV, well tolerating. Placed Dobbhoff tube., PT evaluation ordered and went upon peep 8. 01/18 night patient found to have brief episode of seizure-like activity< 30sec, so again on IV Keppra for an 500 mg b.i.d.. 01/20: PTevaluated the patient shifted him to special bed is so that he can sit upright to improve breathing. Patient is well tolerating on SIMV and currently on trach collar. Respiratory cultures showed Gram-negative rods so added Zosyn. Continue monitoring. 01/21-01/23 : Discontinued Gregg's, advanced tube feedings to 40 mL/hour. We are going to try trach collar over the night as well as he tolerated. Discontinued Lasix and coming down on Precedex. Continue monitoring. Patient was on T-piece without any difficulties and tolerating well. Discontinued Precedex. 01/24 Patient seen and examined at the bedside. Unable to obtain complete ROS due to patient's clinical status multiple to follow commands. Patient's respiratory culture showed Serratia and Citrobacter which is sensitive to ceftriaxone, discontinued Zosyn and added ceftriaxone 2 g. Trying speaking valve today. Patient reporting some itchiness on his body, given Benadryl 01/25: currently reported she he has been having some ankle pain and he has been having some difficulties with the walking so ordered ankle x-ray, negative . Patient may need rehab. Passes swallow eval, given soft diet. Remove NG tube Patient seen and examined at the bedside. Patient reported improvement in his symptoms,Changed rocephin to Levaquin, Dc'd thiamine and folate. DC planning by friday to subacute facility near their home. Possible trach removal tomorrow. Objective vital signs Vital Sign Date Time Temp Pulse Resp B/P (MAP) Pulse Ox O2 Delivery O2 Flow Rate FiO2 01/26/25 15:04 105 21 153/92 (112) 99 01/26/25 14:00 Room Air* 0 21 01/26/25 12:00 98.3 98.3 Total Intake and Output 01/25/25 01/25/25 01/26/25 15:00 23:00 07:00 Intake Total 100 ml 200 ml Output Total 350 ml 350 ml Balance -250 ml -150 ml medications Current Medications Medications Dose Ordered Sig/Rick Route Start Time Stop Time Status Last Admin Dose Admin Lorazepam 1 mg Q5MINP PRN IV 12/18/24 11:00 12/23/24 08:43 1 MG Diagnostic Test (Pha) 1 strip Q6HR 12/19/24 12:00 01/26/25 11:41 1 STRIP Insulin Human Regular FOLLOW SLIDING SCALE Q6HR SC 12/19/24 12:00 01/18/25 23:58 2 UNITS Dextrose 50 ml UD IV 12/19/24 10:00 12/22/24 23:25 50 ML Albuterol 2.5 mg Q6HR NEB 12/19/24 18:00 01/26/25 11:45 2.5 MG Ipratropium [place] 0.5 mg Q6HR NEB 12/19/24 18:00 01/26/25 11:45 0.5 MG Enoxaparin Sodium 40 mg Q12HP SC 01/10/25 22:00 01/26/25 09:08 40 MG Ondansetron HCl 4 mg Q6HPRN PRN IV 01/21/25 19:15 01/23/25 22:13 4 MG Diphenhydramine HCl 25 mg Q4HP PRN IV 01/24/25 18:15 01/25/25 21:04 25 MG Ibuprofen 400 mg Q6HP PRN PO 01/25/25 11:45 01/26/25 09:05 400 MG Acetaminophen 625 mg Q8HPRN PRN GT 01/25/25 12:15 Ketorolac Tromethamine 15 mg Q6HPRN PRN IV 01/26/25 16:45 01/31/25 16:44 UNV Pantoprazole Sodium 40 mg DAILY@0600 PO 01/27/25 06:00 UNV Levofloxacin 500 mg DAILY PO 01/27/25 10:00 UNV Examination Pt is lying on bed General Appearance: Alert, Oriented X3, Cooperative, Not in acute distress HEENT: Atraumatic, Mucous membranes moist/pink Respiratory: Clear to auscultation, Normal air movement, No added sounds Cardiovascular: Regular rate, Normal S1, Normal S2, No murmurs Abdominal: Active bowel sounds, Soft, no distention, no tenderness Extremities: No edema, Normal pulses, No tenderness/swelling Skin: No Significant rash, except past surgical scars Neuro: Normal speech, sensorimotor deficits none, But some numbness in right lower extremity near ankle Psych/Mental Status: Mental status NL, Mood NL Nurse was there as take up operator during examination laboratory and microbiology Laboratory Tests 01/26/25 05:04 Test 01/26/25 05:04 Range/Units Serum Glucose 105 74-106 mg/dL Microbiology Date/Time Source Procedure Growth Status 01/18/25 19:20 Sputum Gram Stain - Final Complete 01/18/25 19:20 Respiratory Culture - Final Serratia marcescens Citrobacter koseri Complete 01/04/25 18:35 Blood Blood Culture - Final NO GROWTH AFTER 5 DAYS OF INCUBATION. Complete 01/04/25 17:00 Urine - Gregg Port Urine Culture - Final Complete 12/25/24 15:20 Catheter Site Aerobic Culture - Final Staphylococcus epidermidis Complete Labs and/or images reviewed: Labs reviewed by me, Image(s) reviewed by me Problem List/Assessment/Plan Problem List/Assessment/Plan Neurology # Acute toxic/metabolic encephalopathy with new-onset or breakthrough generalized seizures, likely multifactorial: # Medication nonadherence (valproic acid level 22.1, subtherapeutic) # Possible alcohol withdrawal # Substance abuse (notably nitrous oxide) - Dc'd Fentanyl, Precedex - Versed stopped - IV levetiracetam 500 mg BID Dc'd - IV lorazepam PRN - Last seizure on 01/18/2025 - EEG: Largely unremarkable - Head CT & Brain MRI: No acute findings; MRI showed pansinusitis and prominent cervical lymphadenopathy - Supportive care: Received IV banana bags x2, thiamine, and folic acid Dc'd - Neurology is on board for ongoing evaluation Cardiovascular # HTN # Sepsis secondary to aspiration pneumonia - Abx Vancomycin Dc - Zosyn changed to rocephin 2g and changed to Levaquin today 01/26 Respiratory # Acute hypoxic respiratory failure secondary to status epilepticus, intubated on 12/18/2024. # Probable aspiration pneumonia with MSSA isolated in both blood and respiratory cultures. # Serratia and Citrobacter pneumonia # Pulmonary edema improved. # Bilateral pleural effusions noted on imaging. # Pulmonary embolism ruled out (CT angiography ordered; no DVT on Doppler). -currently on T-piece, tolerating well for last 48 hours - Receiving ipratropium and albuterol nebulizers. - CXR: Hypoinflated lungs with bibasilar atelectasis; 12/29 CXR showed stable cardiomegaly, bilateral effusions, and right basilar airspace disease., recent CXR showing improvement from the past changes - Antibiotics: IV Zosyn started 12/21, discontinued 01/09 - IV Vancomycin started 12/23, discontinued 01/15 - DC IV Lasix 40 mg - Therapeutic Lovenox initiated, later discontinued. - Repeat blood and sputum cultures confirmed MSSA. - Status post tracheostomy with size 8 tube placement. Currently on T-piece - Respiratory cultures ordered, Gram-negative rods, started on Zosyn -final respiratory culture showed Serratia and Citrobacter, Rocephin 2 g and changed to levaquin po GI # Transaminitis-improving # Peptic ulcer prophylaxis # Vitamin B12 deficiency # Constipation, likely slow transit, relieved by lactose,MiraLax& Colace -Pantoprazole 40 mg IV daily - negative hepatitis-B and hepatitis-C - repleted with 1000 mcg B12 - lactulose daily - KUB: Nonobstructive bowel gas pattern. Moderate stool burden. - diet is Vital AF 40 mL -through Dobbhoff tube placed -Dc'd # morbid obesity with a BMI 50.3 -nutritional counseling after extubation # Gregg catheter removed Nephrology # hypernatremia, now improved # hypokalemia, now improved # hypomagnesemia #? Rhabdomyolysis-improving - serum CK - monitor -keep potassium above 4 and magnesium above 2 -replete as needed, continuously monitor lab -avoid nephrotoxic agents ID # aspiration pneumonia # sepsis due to above # right IJ catheter tip (placed on 12/18/2024, removed on 12/24/2024) culture growing staph epidermidis - pancultures - IV Zosyn discontinued on 01/09 - IV Vancomycin started 12/23, discontinued 01/15 - Tylenol as needed for fever - s/p bronchoscopy x 2 - repeat blood cultures, repeat sputum cultures, showing staph aureus-started vanc and discontinued - 01/19-repeat sputum culture showed Gram-negative rods, added Zosyn on 01/20 -final respiratory culture showed Serratia and Citrobacter, Rocephin 2 g and changed to levaquin po Hem/onc # microcytic anemia, mild - monitor Psychiatry # substance use disorder - we will consider Psychiatry consult once patient is extubated MSK # ? foot drop DVT prophylaxis: On Lovenox 40 mg b.i.d. Nutrition: DC NG and started on mechanical soft. Lines Right PICC placed on 12/24/24 Drips -titrating down on sedation - Versed - Stopped 01/16 - fentanyl - DC on 01/16/2025 - propofol -stopped - Precedex-DC done 01/16/2025 Intubated on 12/18/2024 Bronchoscopy on 12/26/24 Repeat bronchoscopy on 12/28/2024 Gregg on 01/04/2025 Critical care time 63 minutes excluding procedure. Code status discussed greater than 29 minutes: Full CODE STATUS. Detailed discussion held with patient & mother Ms. Sabillon, addressed all concerns. Plan discussed with Dr. Iqbal and rn. Plan discussed with: Patient, Other (mom and rn) My Orders My Orders Orders - AC GRIFFITH RESIDENT Procedure Category Date Status Time R Ankle 2 View Xray XY 01/25/25 Resulted 16:55 L Ankle 2 View Xray XY 01/25/25 Resulted 16:55 Chest Portable XY 01/26/25 Resulted 04:00 Advance Diet As JADIEL 01/26/25 In Process Tolerated 13:14 * Aviation Ordnance Officer CONS 01/26/25 Transmitted Consult 13:23 Regular Diet DIET 01/26/25 Transmitted Dinner Ketorolac Injection PHA 01/26/25 Logged (Toradol Injection) 16:45 Pantoprazole Tablet PHA 01/27/25 Logged (Protonix Tablet) 06:00 Levofloxacin Tablet PHA 01/27/25 Logged (Levaquin Tablet) 10:00 Levofloxacin Tablet PHA 01/26/25 Logged (Levaquin Tablet) 16:45 Dietary Evaluation Review Comments: 1) Continue TPN to meet at least 75% estimated needs 2) TF Vital High Protein @ 60ml/hr(goal) with current rate of propofol. TF at goal volume together with propofol provides 2471 kcal (100% eenrgy needs) & 126 gm protein (100% protein needs) 3) Monitor TPN tolerance, lab values, I/O, wt trend Expected Outcomes/Goals: To meet >75% estimated needs Fu 2-3 days Date of Service: Jan 26, 2025 Billing Provider: ANTHONY IQBAL MD Common Visit Codes: 83044-OPOYXNRN CARE 30-74 MIN AC GRIFFITH RESIDENT Jan 26, 2025 16:53 ANTHONY IQBAL MD Jan 27, 2025 12:09
[2025-01-26] MEDS ORDERED: ACETAMINOPHEN 650 mg PER 20.3 mL UD GT PRN (18:30)
[2025-01-26] MEDS: levoFLOXacin 500 MG TAB PO ONE (18:34)
[2025-01-26] MEDS: KETOROLAC TROMETH 30 MG/ML 1ML VIAL IV PRN (23:06)
[2025-01-27] VITALS (36 sets, daily range): BP systolic 121–164; BP diastolic 58–136; PULSE 55–105; RESP 11–28; TEMP 97.7–98.9; O2SAT 92–100
[2025-01-27] MEDS: ALBUTEROL SULF 2.5 MG/0.5ML(0.5%) NEB SOLN ONE (00:33)
[2025-01-27] MEDS: IPRATROPIUM BROM 0.5 MG/2.5ML INH SOL ONE (00:33)
--- NOTE | 2025-01-27 05:40 | DVH ---
CHEST RADIOGRAPH Indication: fufu Technique: Single frontal view of the chest was obtained COMPARISON: XY CHEST PORTABLE on DOS: 01/26/25, XY CHEST PORTABLE on DOS: 01/25/25, XY CHEST XRAY 1 VIE W on DOS: 01/24/25, XY CHEST PORTABLE on DOS: 01/22/25, XY CHEST PORTABLE on DOS: 01/21/25 FINDINGS: Lines and Tubes: Tracheostomy and right peripherally inserted central catheter unchanged. Lungs: Clear. Diminished lung volumes exaggerate the prominence of the pulmonary vasculature. Pleura: No effusion. No pneumothorax. Cardiomediastinal contours: Unremarkable Bones: Unremarkable IMPRESSION: 1. No acute disease. Diminished lung volumes. 2. Lines and tubes unchanged.
[2025-01-27] MEDS: PANTOPRAZOLE 40 MG TAB PO SCH (05:52)
[2025-01-27 06:24] LABS: Hematocrit 39.9 % (41.0-53.0); Hemoglobin 13.4 g/dL (13.5-17.5); Mean Corpuscular Hemoglobin 29.1 pg (28.0-32.0); Mean Corpuscular Volume 86.9 fL (80.0-100.0); Nucleated Red Blood Cells % 0.2 %
[2025-01-27 06:48] LABS: Alanine Aminotransferase 82 U/L (7-40); Albumin 4.6 g/dL (3.2-4.8); Alkaline Phosphatase 129 U/L (46-116); Anion Gap 12 (5-15); BUN/Creatinine Ratio 22.2 (10.0-20.0); Bilirubin, Total 0.4 mg/dL (0.2-1.0); Blood Urea Nitrogen 12 mg/dL (9-23); Calcium 10.0 mg/dL (8.7-10.4); Carbon Dioxide 26 mmol/L (20-31); Chloride 106 mmol/L (98-107); Glucose 100 mg/dL (74-106); Magnesium 1.8 mg/dL (1.6-2.6); Potassium 4.3 mmol/L (3.5-5.1); Sodium 144 mmol/L (136-145); Total Protein 7.4 g/dL (5.7-8.2)
[2025-01-27] MEDS: MAGNESIUM SULFATE 1GM/100ML 100 ML IV SCH (09:16)
[2025-01-27] MEDS: levoFLOXacin 500 MG TAB PO SCH (09:17)
--- NOTE | 2025-01-27 10:37 | DVHPN2 ---
Progress Note - Dictate Date Seen: Jan 27, 2025 Medical Necessity Reason Pt with a Central, PICC or Fol: Yes The following are medically ne: PICC Line, Reed Catheter Reason for reed catheter: Strict I&O Subjective Mr. Perry is a 24 years old right-handed gentleman with a history of hypertension, pain syndrome, substance abuse, he was admitted to the [facility] on 12/17/2024 for new onset seizure activity. I have seen and examined the patient, discussed with his nurses. He is alert, fully oriented, no new complaint We have discussed about his history of drug abuse, rehab, and he is aware of everything, he does not think and I agree, psychiatric evaluation is needed at this time Blood culture, 12/25/2024: No growth Sputum culture, 12/25/2024: Staphylococcus aureus Urine culture, 01/04/2025: Urinalysis, 12/17/2024: Unremarkable Urine drug screening, 12/17/2024: Benzo Valproic acid, 12/17/2024: 22.1 Plasma alcohol, 12/17/2024: <3 ABG, 12/18/2024: Respiratory acidosis, 12/20/2024: Acidosis, 12/22/2024: Hypoxia, 12/24/2024: Hypoxia, carbon dioxide retention, 12/25/2024: Hypoxia, carbon dioxide retention, 12/29/2024: Hypoxia, carbon dioxide retention WBC/HB/PLT/MCV, 12/20/2024: 8/12.4/233/90.4 CMP 12/18/2024: Unremarkable TBI/AST/ALT/AP, 12/20/2024: 0.7/44/45/143 EEG, 12/19/2019 10/26/24 13:15: Normal EEG, 12/23/2024: Moderately abnormal EEG Bronchoscopy 01/12/25: There were copious blood tinged secretions in the airways bilaterally Chest x-ray 12/18/2024: Endotracheal tube 0.7 cm above the rogers. Nasogastric tube in the proximal stomach Chest x-ray, 12/27/2024: 1. Stable mild multifocal bilateral pulmonary airspace disease, most notably at the lung bases. 2. Lines and tubes unchanged Chest x-ray, 12/29/2024: 1. Stable cardiomegaly, bilateral pleural effusions and moderate diffuse increased prominence of the pulmonary vasculature. 2. Right basilar pulmonary airspace disease. 3. Interval retraction of endotracheal tube as above. Remaining lines and tubes unchanged Chest x-ray, : Lines and tubes in satisfactory position. No significant interval change. CT head, 12/17/2024: No evidence of acute intracranial abnormality. If symptoms persist, consider MRI for further evaluation MR head, 12/21/2024: No evidence of acute infarction, intracranial hemorrhage, mass effect or hydrocephalus. No evidence of mesial temporal sclerosis. Pansinusitis. Prominent bilateral cervical lymph nodes. This can be further evaluated with ultrasound vital signs Vital Sign Date Time Temp Pulse Resp B/P (MAP) Pulse Ox O2 Delivery O2 Flow Rate FiO2 01/27/25 10:24 142/93 (109) 01/27/25 10:00 75 22 97 01/27/25 10:00 Room Air* 0 21 01/27/25 08:00 98.9 98.9 Total Intake and Output 01/26/25 01/26/25 01/27/25 15:00 23:00 07:00 Intake Total 200 ml 712 ml Output Total 320 ml 400 ml Balance -120 ml 312 ml medications Current Medications Medications Dose Ordered Sig/Rick Route Start Time Stop Time Status Last Admin Dose Admin Lorazepam 1 mg Q5MINP PRN IV 12/18/24 11:00 12/23/24 08:43 1 MG Diagnostic Test (Pha) 1 strip Q6HR 12/19/24 12:00 01/27/25 05:52 1 STRIP Insulin Human Regular FOLLOW SLIDING SCALE Q6HR SC 12/19/24 12:00 01/18/25 23:58 2 UNITS Dextrose 50 ml UD IV 12/19/24 10:00 12/22/24 23:25 50 ML Albuterol 2.5 mg Q6HR NEB 12/19/24 18:00 01/27/25 05:32 2.5 MG Ipratropium [place] 0.5 mg Q6HR NEB 12/19/24 18:00 01/27/25 05:32 0.5 MG Enoxaparin Sodium 40 mg Q12HP SC 01/10/25 22:00 01/27/25 09:17 40 MG Ondansetron HCl 4 mg Q6HPRN PRN IV 01/21/25 19:15 01/27/25 00:32 4 MG Diphenhydramine HCl 25 mg Q4HP PRN IV 01/24/25 18:15 01/25/25 21:04 25 MG Ibuprofen 400 mg Q6HP PRN PO 01/25/25 11:45 Hold 01/26/25 09:05 400 MG Ketorolac Tromethamine 15 mg Q6HPRN PRN IV 01/26/25 16:45 01/31/25 16:44 01/26/25 23:06 15 MG Pantoprazole Sodium 40 mg DAILY@0600 PO 01/27/25 06:00 01/27/25 05:52 40 MG Levofloxacin 500 mg DAILY PO 01/27/25 10:00 01/27/25 09:17 500 MG Acetaminophen 625 mg Q8HPRN PRN GT 01/27/25 08:00 objective The patient is well-nourished and well-developed with no distress. The patient is status post tracheostomy, feeding tube insertion MENTAL STATUS: Subjective CRANIAL NERVES: Pupils are equal, round and reactive. There is conjugated eye movement. Sensorimotor examined in bilateral trigeminal distribution is unremarkable, no facial weakness SENSATION: Fine to pinprick and light touch MOTOR: Normal tone in the upper and lower extremity. Normal muscle bulk. No fasciculations. He moves the arms and legs REFLEXES: Deep tendon reflexes are symmetrical. No pathological reflexes. CEREBELLAR/COORDINATION: No ataxia GAIT/STATION: deferred laboratory and microbiology Laboratory Tests 01/27/25 05:21 Test 01/27/25 05:21 Range/Units Serum Glucose 100 74-106 mg/dL Problem List Come, resolved Metabolic encephalopathy Hypoxic encephalopathy Toxic encephalopathy ? Status epileptics New onset seizure, status epileptics Likely secondary to substance abuse ? Partial complex seizure ? Grand mal seizure The activity witnessed on 12/23/2024 was not typical to seizure, likely myoclonus Substance/NO abuse ? Depression Respiratory failure/hypoxia, status post tracheostomy Pneumonia ICU myopathy Assessment/Plan Monitoring Supportive treatment Telemetry Keppra 500 mg b.i.d. Ativan for seizure breakthrough Need history from him directly Consider tele psych consultation Re: The previous substance abuse later More recommendation per clinical course This medical document was created using an electronic medical record system with [employer] dictation system. Although this document has been carefully reviewed, there may still be some phonetic and typographical errors. These areas are purely typographical due to imperfections of the software programs, and do not reflect any compromise in the patient's medical care. Prognosis poor Dietary Evaluation Review Comments: 1) Continue TPN to meet at least 75% estimated needs 2) TF Vital High Protein @ 60ml/hr(goal) with current rate of propofol. TF at goal volume together with propofol provides 2471 kcal (100% eenrgy needs) & 126 gm protein (100% protein needs) 3) Monitor TPN tolerance, lab values, I/O, wt trend Expected Outcomes/Goals: To meet >75% estimated needs Fu 2-3 days Plan discussed with: Patient, Other BONNY PEREZ MD Jan 27, 2025 10:37
[2025-01-27] MEDS: ACETAMINOPHEN 650 mg PER 20.3 mL UD GT PRN (15:23)
--- NOTE | 2025-01-27 17:40 | DVHPNRES ---
Progress Note Date Seen: Jan 27, 2025 Resident Creating Document: AC GRIFFITH RESIDENT Medical Necessity Reason Pt with a Central, PICC or Fol: Yes The following are medically ne: PICC Line Subjective Review of Systems Mr. Lynn is a 24-year-old male with hypertension, chronic pain, and substance abuse disorder was admitted after new-onset seizures, reportedly due to heavy nitrous oxide use. He was intubated on 12/18/2024 following status epilepticus and placed on multiple sedatives including propofol, Versed, and fentanyl. A right IJ central line and OG tube were placed with difficulty due to body habitus. He was transferred to the ICU and maintained on deep sedation. Despite initial seizure control, breakthrough seizures occurred on 12/23, prompting resumption of Versed. Vancomycin and Zosyn were started for fever and leukocytosis. Sedation vacations were attempted intermittently with variable success. Pulmonary status fluctuated, requiring FiO2 up to 100% and PEEP adjustments. Bronchoscopy was performed on 12/26. Due to prolonged intubation (day 12 by 12/29), tracheostomy was considered. Lovenox was initiated for suspected thromboembolism, later discontinued due to ruled out PE. Oxygenation improved gradually, and FiO2 was reduced to 30% by 01/01. Sedation vacation on 01/04 showed no seizures and appropriate command following. Tracheostomy was deferred on 01/06 due to instability and FiO2 of 60%.FiO2 down to 50% on 01/07. 01/19: Tried trach collar 2 hours . On SIMV, well tolerating. Placed Dobbhoff tube., PT evaluation ordered and went upon peep 8. 8 night patient found to have brief episode of seizure-like activity< 30sec, so again on IV Keppra for an 500 mg b.i.d.. 01/20: PTevaluated the patient shifted him to special bed is so that he can sit upright to improve breathing. Patient is well tolerating on SIMV and currently on trach collar. Respiratory cultures showed Gram-negative rods so added Zosyn. Continue monitoring. 01/21-01/23 : Discontinued Gregg's, advanced tube feedings to 40 mL/hour. We are going to try trach collar over the night as well as he tolerated. Discontinued Lasix and coming down on Precedex. Continue monitoring. Patient was on T-piece without any difficulties and tolerating well. Discontinued Precedex. 01/24 Patient seen and examined at the bedside. Unable to obtain complete ROS due to patient's clinical status multiple to follow commands. Patient's respiratory culture showed Serratia and Citrobacter which is sensitive to ceftriaxone, discontinued Zosyn and added ceftriaxone 2 g. Trying speaking valve today. Patient reporting some itchiness on his body, given Benadryl 01/25: currently reported she he has been having some ankle pain and he has been having some difficulties with the walking so ordered ankle x-ray, negative . Patient may need rehab. Passes swallow eval, given soft diet. Remove NG tube 01/26: ,Changed rocephin to Levaquin, Dc'd thiamine and folate. DC planning by friday to subacute facility near their home. Possible trach removal tomorrow. Patient seen and examined at the bedside. Patient reported improvement in his symptoms. Reported improvement in his leg pain. Removed trach tube to today. DC planning to SNF likely tomorrow. Patient reports: Feels better Objective vital signs Vital Sign Date Time Temp Pulse Resp B/P (MAP) Pulse Ox O2 Delivery O2 Flow Rate FiO2 01/27/25 17:00 75 17 127/85 (99) 100 01/27/25 16:00 Room Air* 0 21 01/27/25 13:00 98.2 98.2 Total Intake and Output 01/26/25 01/26/25 01/27/25 15:00 23:00 07:00 Intake Total 200 ml 712 ml Output Total 320 ml 400 ml Balance -120 ml 312 ml medications Current Medications Medications Dose Ordered Sig/Rick Route Start Time Stop Time Status Last Admin Dose Admin Lorazepam 1 mg Q5MINP PRN IV 12/18/24 11:00 12/23/24 08:43 1 MG Diagnostic Test (Pha) 1 strip Q6HR 12/19/24 12:00 01/27/25 12:22 1 STRIP Insulin Human Regular FOLLOW SLIDING SCALE Q6HR SC 12/19/24 12:00 01/18/25 23:58 2 UNITS Dextrose 50 ml UD IV 12/19/24 10:00 12/22/24 23:25 50 ML Albuterol 2.5 mg Q6HR NEB 12/19/24 18:00 01/27/25 11:38 2.5 MG Ipratropium [place] 0.5 mg Q6HR NEB 12/19/24 18:00 01/27/25 11:38 0.5 MG Ondansetron HCl 4 mg Q6HPRN PRN IV 01/21/25 19:15 01/27/25 00:32 4 MG Diphenhydramine HCl 25 mg Q4HP PRN IV 01/24/25 18:15 01/25/25 21:04 25 MG Ibuprofen 400 mg Q6HP PRN PO 01/25/25 11:45 Hold 01/26/25 09:05 400 MG Ketorolac Tromethamine 15 mg Q6HPRN PRN IV 01/26/25 16:45 01/31/25 16:44 01/27/25 10:43 15 MG Pantoprazole Sodium 40 mg DAILY@0600 PO 01/27/25 06:00 01/27/25 05:52 40 MG Levofloxacin 500 mg DAILY PO 01/27/25 10:00 01/27/25 09:17 500 MG Acetaminophen 625 mg Q8HPRN PRN GT 01/27/25 08:00 01/27/25 15:23 625 MG Examination Pt is lying on bed General Appearance: Alert, Oriented X3, Cooperative, Not in acute distress HEENT: Atraumatic, Mucous membranes moist/pink Respiratory: Clear to auscultation, Normal air movement, No added sounds Cardiovascular: Regular rate, Normal S1, Normal S2, No murmurs Abdominal: Active bowel sounds, Soft, no distention, no tenderness Extremities: No edema, Normal pulses, No tenderness/swelling Skin: No Significant rash, except past surgical scars Neuro: Normal speech, sensorimotor deficits none, But some numbness in right lower extremity near ankle Psych/Mental Status: Mental status NL, Mood NL Nurse was there as product operations associate during examination laboratory and microbiology Laboratory Tests 01/27/25 05:21 Test 01/27/25 05:21 Range/Units Serum Glucose 100 74-106 mg/dL Microbiology Date/Time Source Procedure Growth Status 01/18/25 19:20 Sputum Gram Stain - Final Complete 01/18/25 19:20 Respiratory Culture - Final Serratia marcescens Citrobacter koseri Complete 01/04/25 18:35 Blood Blood Culture - Final NO GROWTH AFTER 5 DAYS OF INCUBATION. Complete 01/04/25 17:00 Urine - Gregg [place] Urine Culture - Final Complete 12/25/24 15:20 Catheter Site Aerobic Culture - Final Staphylococcus epidermidis Complete Labs and/or images reviewed: Labs reviewed by me, Image(s) reviewed by me Problem List/Assessment/Plan Problem List/Assessment/Plan Neurology # Acute toxic/metabolic encephalopathy with new-onset or breakthrough generalized seizures, likely multifactorial: # Medication nonadherence (valproic acid level 22.1, subtherapeutic) # Possible alcohol withdrawal # Substance abuse (notably nitrous oxide) - Dc'd Fentanyl, Precedex - Versed stopped - IV levetiracetam 500 mg BID Dc'd - IV lorazepam PRN - Last seizure on 01/18/2025 - EEG: Largely unremarkable - Head CT & Brain MRI: No acute findings; MRI showed pansinusitis and prominent cervical lymphadenopathy - Supportive care: Received IV banana bags x2, thiamine, and folic acid Dc'd - Neurology is on board for ongoing evaluation Cardiovascular # HTN # Sepsis secondary to aspiration pneumonia - Abx Vancomycin Dc - Zosyn changed to rocephin 2g and changed to Levaquin today 01/26 Respiratory # Acute hypoxic respiratory failure secondary to status epilepticus, intubated on 12/18/2024. # Probable aspiration pneumonia with MSSA isolated in both blood and respiratory cultures. # Serratia and Citrobacter pneumonia # Pulmonary edema improved. # Bilateral pleural effusions noted on imaging. # Pulmonary embolism ruled out (CT angiography ordered; no DVT on Doppler). -removed tracheostomy tube today 01/28/2020 - Receiving ipratropium and albuterol nebulizers. - CXR: Hypoinflated lungs with bibasilar atelectasis; 12/29 CXR showed stable cardiomegaly, bilateral effusions, and right basilar airspace disease., recent CXR showing improvement from the past changes - Antibiotics: IV Zosyn started 12/21, discontinued 01/09 - IV Vancomycin started 12/23, discontinued 01/15 - DC IV Lasix 40 mg - Therapeutic Lovenox initiated, later discontinued. - Repeat blood and sputum cultures confirmed MSSA. - Status post tracheostomy with size 8 tube placement. Currently on T-piece - Respiratory cultures ordered, Gram-negative rods, started on Zosyn -final respiratory culture showed Serratia and Citrobacter, Rocephin 2 g and changed to levaquin po GI # Transaminitis-improving # Peptic ulcer prophylaxis # Vitamin B12 deficiency # Constipation, likely slow transit, relieved by lactose,MiraLax& Colace -Pantoprazole 40 mg IV daily - negative hepatitis-B and hepatitis-C - repleted with 1000 mcg B12 - lactulose daily - KUB: Nonobstructive bowel gas pattern. Moderate stool burden. - diet is Vital AF 40 mL -through Dobbhoff tube placed -Dc'd # morbid obesity with a BMI 50.3 -nutritional counseling after extubation # Gregg catheter removed Nephrology # hypernatremia, now improved # hypokalemia, now improved # hypomagnesemia #? Rhabdomyolysis-improving - serum CK - monitor -keep potassium above 4 and magnesium above 2 -replete as needed, continuously monitor lab -avoid nephrotoxic agents ID # aspiration pneumonia # sepsis due to above # right IJ catheter tip (placed on 12/18/2024, removed on 12/24/2024) culture growing staph epidermidis - pancultures - IV Zosyn discontinued on 01/09 - IV Vancomycin started 12/23, discontinued 01/15 - Tylenol as needed for fever - s/p bronchoscopy x 2 - repeat blood cultures, repeat sputum cultures, showing staph aureus-started vanc and discontinued - 01/19-repeat sputum culture showed Gram-negative rods, added Zosyn on 01/20 -final respiratory culture showed Serratia and Citrobacter, Rocephin 2 g and changed to levaquin po Hem/onc # microcytic anemia, mild - monitor Psychiatry # substance use disorder - we will consider Psychiatry consult once patient is extubated MSK # ? foot drop DVT prophylaxis: On Lovenox 40 mg b.i.d. Nutrition: DC NG and started on mechanical soft. Lines Right PICC placed on 12/24/24 Drips -titrating down on sedation - Versed - Stopped 01/16 - fentanyl - DC on 01/16/2025 - propofol -stopped - Precedex-DC done 01/16/2025 Intubated on 12/18/2024 Bronchoscopy on 12/26/24 Repeat bronchoscopy on 12/28/2024 Gregg on 01/04/2025 Removed tracheostomy tube today 01/28/2020 Critical care time 63 minutes excluding procedure. Code status discussed greater than 29 minutes: Full CODE STATUS. Detailed discussion held with patient & mother Ms. Sabillon, addressed all concerns. Plan discussed with Dr. Iqbal and rn. DC planning tomorrow to acute care facility for rehab likely tomorrow. Plan discussed with: Patient, Other (mom) My Orders My Orders Orders - AC GRIFFITH RESIDENT Procedure Category Date Status Time Complete Blood Count LAB 01/28/25 Verified 04:00 Comprehensive LAB 01/28/25 Verified Metabolic Panel 04:00 Magnesium LAB 01/28/25 Verified 04:00 Dietary Evaluation Review Comments: 1) Continue TPN to meet at least 75% estimated needs 2) TF Vital High Protein @ 60ml/hr(goal) with current rate of propofol. TF at goal volume together with propofol provides 2471 kcal (100% eenrgy needs) & 126 gm protein (100% protein needs) 3) Monitor TPN tolerance, lab values, I/O, wt trend Expected Outcomes/Goals: To meet >75% estimated needs Fu 2-3 days Date of Service: Jan 27, 2025 Billing Provider: ANTHONY IQBAL MD Common Visit Codes: 08520-VMBXIALV CARE 30-74 MIN AC GRIFFITH Jan 27, 2025 17:40 ANTHONY IQBAL MD Jan 29, 2025 12:17
[2025-01-28] VITALS (32 sets, daily range): BP systolic 129–152; BP diastolic 76–123; PULSE 63–107; RESP 13–29; TEMP 97.8–99.2; O2SAT 84–100
[2025-01-28 06:17] LABS: Hematocrit 39.7 % (41.0-53.0); Hemoglobin 13.4 g/dL (13.5-17.5); Mean Corpuscular Hemoglobin 29.2 pg (28.0-32.0); Mean Corpuscular Volume 86.4 fL (80.0-100.0); Nucleated Red Blood Cells % 0.0 %
[2025-01-28 06:18] LABS: Albumin 4.5 g/dL (3.2-4.8); Anion Gap 11 (5-15); BUN/Creatinine Ratio 20.9 (10.0-20.0); Bilirubin, Total 0.4 mg/dL (0.2-1.0); Calcium 9.9 mg/dL (8.7-10.4); Carbon Dioxide 27 mmol/L (20-31); Chloride 103 mmol/L (98-107); Glucose 94 mg/dL (74-106); Magnesium 1.8 mg/dL (1.6-2.6); Potassium 3.8 mmol/L (3.5-5.1); Sodium 141 mmol/L (136-145); Total Protein 7.3 g/dL (5.7-8.2)
[2025-01-28 06:30] LABS: Alanine Aminotransferase 80 U/L (7-40); Alkaline Phosphatase 127 U/L (46-116); Blood Urea Nitrogen 9 mg/dL (9-23)
[2025-01-28] MEDS: MAGNESIUM SULFATE 1GM/100ML 200 ML IV ONE (07:53)
[2025-01-28] MEDS: MAGNESIUM SULFATE 1GM/100ML 100 ML IV SCH (08:19)
[2025-01-28] MEDS: ACETAMINOPHEN 325 MG TAB PO PRN (13:14)
--- NOTE | 2025-01-28 16:14 | DVHDSRES ---
Discharge Summary Date of Admission Resident Creating Document: AC GRIFFITH RESIDENT Dec 17, 2024 at 23:57 Date of Discharge: Jan 07, 2025 Admitting Diagnosis Seizures Labs/Diagnostic Data: Laboratory Results Test 01/28/25 05:43 01/28/25 05:25 01/24/25 09:06 01/21/25 09:21 POC Glucose 105 mg/dl (70-106) White Blood Count 7.7 10^3/uL (4.4-10.8) Red Blood Count 4.60 10^6/uL (4.5-5.90) Hemoglobin 13.4 g/dL (13.5-17.5) Hematocrit 39.7 % (41.0-53.0) Mean Corpuscular Volume 86.4 fL (80.0-100.0) Mean Corpuscular Hemoglobin 29.2 pg (28.0-32.0) Mean Corpuscular Hemoglobin Concent 33.8 g/dL (32.0-36.0) Red Cell Distribution Width 14.7 % (11.8-14.3) Platelet Count 306 10^3/uL (140-450) Mean Platelet Volume 9.8 fL (6.9-10.8) Neutrophils (%) (Auto) 55.7 % (37.0-80.0) Lymphocytes (%) (Auto) 28.5 % (10.0-50.0) Monocytes (%) (Auto) 11.7 % (0.0-12.0) Eosinophils (%) (Auto) 3.2 % (0.0-7.0) Basophils (%) (Auto) 0.9 % (0.0-2.0) Neutrophils # (Auto) 4.3 10 ^3/uL (1.6-8.6) Lymphocytes # (Auto) 2.2 10 ^3/uL (0.4-5.4) Monocytes # (Auto) 0.9 10 ^3/uL (0-1.3) Eosinophils # (Auto) 0.2 10 ^3/uL (0-0.8) Basophils # (Auto) 0.1 10 ^3/uL (0-0.2) Nucleated Red Blood Cells 0.0 % Sodium Level 141 mmol/L (136-145) Potassium Level 3.8 mmol/L (3.5-5.1) Chloride Level 103 mmol/L (98-107) Carbon Dioxide Level 27 mmol/L (20-31) Anion Gap 11 (5-15) Blood Urea Nitrogen 9 mg/dL (9-23) Creatinine 0.43 mg/dL (0.700-1.30) Glomerular Filtration Rate Calc 152 mL/min (>90) BUN/Creatinine Ratio 20.9 (10.0-20.0) Serum Glucose 94 mg/dL (74-106) Calcium Level 9.9 mg/dL (8.7-10.4) Magnesium Level 1.8 mg/dL (1.6-2.6) Total Bilirubin 0.4 mg/dL (0.2-1.0) Aspartate Amino Transferase (AST) 26 U/L (13-40) Alanine Aminotransferase (ALT) 80 U/L (7-40) Alkaline Phosphatase 127 U/L (46-116) Total Protein 7.3 g/dL (5.7-8.2) Albumin 4.5 g/dL (3.2-4.8) Blood Gas Specimen Type Arterial Blood Gas Sample Site Right brachial Blood Gas Patient Temperature 37.0 Arterial Blood Date Drawn [id number] Arterial Blood pH 7.518 (7.350-7.450) Arterial Blood Partial Pressure CO2 26.1 mmHg (35.0-48.0) Arterial Blood Partial Pressure O2 87.3 mmHg (83.0-108.0) Arterial Blood HCO3 20.7 mmol/L (21.0-28.0) Arterial Blood Oxygen Saturation 96.7 % (94.0-98.0) Arterial Blood Base Excess -0.6 mmol/L (-2.0-3.0) Arterial Blood Oxyhemoglobin 95.6 % (94.0-98.0) Arterial Blood Carboxyhemoglobin 0.7 % (0.5-1.5) Arterial Blood Methemoglobin 0.4 % (0.0-1.5) Jesus Test N/a Blood Gas Total Hemoglobin 14.10 g/dL (13.5-17.5) Blood Gas Liter Flow 8.00 Blood Gas Modality Cool aerosol FiO2 % 30.0 Urine Color Light-yellow (Yellow) Urine Clarity Clear (Clear) Urine pH 5.0 (5.0-9.0) Urine Specific [place] 1.009 (1.001-1.035) Urine Protein Negative (Negative) Urine Ketones Trace (Negative) Urine Blood 2+ /uL (Negative) Urine Nitrite Negative (Negative) Urine Bilirubin Negative (Negative) Urine Urobilinogen Normal mg/dL (Negative) Urine Leukocyte Esterase Trace /uL (Negative) Urine RBC 99 /hpf (0 - 3) Urine Microscopic WBC 8 /HPF (0-3) Urine Squamous Epithelial Cells Few /hpf (<5) Urine Bacteria Few /hpf (None Seen) Urine Glucose Normal mg/dL (Normal) Test 01/21/25 07:41 01/17/25 09:30 01/14/25 12:56 01/10/25 03:22 Blood Gas Set Respiration Rate 12.0 Blood Gas Tidal Volume 450.0 Blood Gas Pressure Support 8 Blood Gas PEEP or CPAP 8.0 Differential Total Cells Counted 100.0 (100) Neutrophils % (Manual) 76 (37.0-80.0) Band Neutrophils % (Manual) 0 Lymphocytes % (Manual) 20 (10.0-50.0) Monocytes % (Manual) 2 (0-12) Eosinophils % (Manual) 1 (0-7) Basophils % (Manual) 0 (0.0-2.0) Metamyelocytes % (manual) 0 Myelocytes % (Manual) 1 Promyelocytes % (Manual) 0 Blast Cells % (Manual) 0 Reactive Lymphocytes 0 Platelet Estimate Adequate Vancomycin Level Trough 16.5 ug/mL (5-10) Prothrombin Time 11.3 sec (9.3-11.8) Prothrombin Time INR 1.07 (0.9-1.15) Test 01/05/25 06:19 01/02/25 08:06 01/01/25 10:26 12/30/24 21:00 Blood Gas Critical Value Read Back Yes Blood Gas Notified Whom Dr. crow mckenzie Blood Gas Notified Time [id number] Blood Gas Notified By Specimen Drawn By Nuria taker off HIV (1&2) Antibody Negative (Negative) Influenza Type A Antigen Negative (Negative) Influenza Type B Antigen Negative (Negative) SARS-CoV-2 Antigen (Rapid) Negative (NEGATIVE) Test 12/29/24 01:55 12/28/24 03:40 12/27/24 03:02 12/26/24 03:33 Large Platelets Few Phosphorus Level 4.6 mg/dL (2.4-5.1) Random Vancomycin Level 6.3 ug/mL (5-10) Triglycerides Level 229 mg/dL (< 150) Red Blood Cell Morphology Normal Test 12/25/24 10:05 12/24/24 10:05 12/23/24 08:50 12/23/24 08:15 Creatine Kinase 640 U/L (46-171) Activated Partial Thromboplast Time 29.9 SEC (24.5-34.5) Prolactin 31.53 ng/mL (2.1-17.7) Lactic Acid Level 0.4 mmol/L (0.4-2.0) Test 12/21/24 20:19 12/20/24 13:15 12/18/24 15:29 12/18/24 06:07 Blood Gas Spontaneous Rate 20 Blood Gas Spontaneous Tidal Volume 559 Blood Gas Inspiratory Pressure 18.0 Bl Gas Inspiratory/Expiratory Ratio 1:2 Vitamin B12 Level 272 pg/mL (211-911) Folic Acid 12.54 ng/mL (>5.38) Lactate Dehydrogenase 221 U/L (120-246) Hepatitis B Surface Antigen Negative (Negative) Hepatitis C Antibody Negative (Negative) Test 12/17/24 23:14 12/17/24 22:08 12/17/24 21:15 Urine Yeast (Budding) Occasional /hpf (None Urine Opiates Screen Neg (NEGATIVE) Urine Fentanyl Screen Neg (NEGATIVE) Urine Barbiturates Screen Neg (NEGATIVE) Urine Phencyclidine Screen Neg (NEGATIVE) Urine Amphetamines Screen Neg (NEGATIVE) Urine Benzodiazepines Screen Pos (NEGATIVE) Urine Cocaine Screen Neg (NEGATIVE) Urine Cannabinoids Screen Neg (NEGATIVE) Troponin I High Sensitivity < 3 ng/L (</=54) Valproic Acid Level 22.1 ug/mL (50-100) Plasma/Serum Blood Alcohol < 3.0 mg/dL (<10) Other Laboratory Tests 01/28/25 05:25 Brief Hx & Hospital Course: Mr. Lynn, a 24-year-old male with a history of hypertension, chronic pain, morbid obesity (BMI 50.3), and substance use disorder, was admitted following status epilepticus likely triggered by heavy nitrous oxide use. He was intubated on 12/18/2024 and managed in the ICU with deep sedation using propofol, Versed, and fentanyl. A right internal jugular central line and OG tube were placed with difficulty due to body habitus. Despite initial seizure control, breakthrough seizures occurred on 12/23, prompting resumption of Versed and initiation of vancomycin and Zosyn for fever and leukocytosis. Pulmonary status was unstable, requiring high FiO2 and PEEP adjustments. Bronchoscopy was performed on 12/26. Due to prolonged intubation, tracheostomy was considered but deferred due to instability. Oxygenation gradually improved, and sedation was weaned. The patient tolerated trach collar trials and was transitioned to SIMV. Respiratory cultures revealed Gram-negative rods, prompting antibiotic adjustments. Final cultures showed Serratia and Citrobacter, sensitive to ceftriaxone, later switched to oral Levaquin. The patient was successfully decannulated on 01/27. Neurologically, the patient had acute toxic/metabolic encephalopathy with seizures likely multifactorialmedication nonadherence (subtherapeutic valproic acid), possible alcohol withdrawal, and nitrous oxide abuse. EEG was unremarkable, and imaging showed no acute findings but pansinusitis and cervical lymphadenopathy. Supportive care included thiamine, folic acid, and IV fluids. Psychiatry consult is planned post-extubation. Cardiovascularly, he had sepsis secondary to aspiration pneumonia with MSSA isolated in cultures. Respiratory issues included acute hypoxic failure, aspiration pneumonia, pulmonary edema, and bilateral effusions, all improved. GI evaluation showed transaminitis, vitamin B12 deficiency, and constipation, managed with repletion and laxatives. Nutritional support was provided via Dobbhoff tube, later discontinued after passing a swallow evaluation and transitioning to a soft diet. status improved with Gregg catheter removal. Renal labs showed hypernatremia, hypokalemia, and hypomagnesemia, all corrected. Rhabdomyolysis was suspected but improved. Hematologically, he had mild microcytic anemia. Musculoskeletal evaluation raised concern for foot drop and ankle pain, with negative imaging. DVT prophylaxis was maintained with Lovenox. The patient showed significant clinical improvement, was decannulated, and is planned for discharge to a SNF for deconditioning and rehabilitation near his home for continued rehabilitation and recovery. Discharge plan discussed with the patient and patient's mother and agreed to the plan. Patient will advised about healthy lifestyle modifications including diet and exercise and advised to cessation of alcohol and other drug abuse. Patient will advised to follow up with the PCP after the discharge. Pt is lying on bed General Appearance: Alert, Oriented X3, Cooperative, Not in acute distress HEENT: Atraumatic, Mucous membranes moist/pink Respiratory: Clear to auscultation, Normal air movement, No added sounds Cardiovascular: Regular rate, Normal S1, Normal S2, No murmurs Abdominal: Active bowel sounds, Soft, no distention, no tenderness Extremities: No edema, Normal pulses, No tenderness/swelling Skin: No Significant rash, except past surgical scars Neuro: Normal speech, sensorimotor deficits none Psych/Mental Status: Mental status NL, Mood NL Nurse was there as conveyor monitor during examination Discharge plan discussed with the Dr. New. Operations or Procedures Procedure: CT HEAD WITHOUT CONTRAST Impression: No evidence of acute intracranial abnormality. If symptoms persist, consider MRI for further evaluation. ---- EXAM: XY CHEST PORTABLE FINDINGS/IMPRESSION: LUNGS: Low lung volumes, which cause crowding of the bronchovascular markings. In greatest interstitial markings with elevation of the right hemidiaphragm. Correlate for underlying infiltrate versus volume overload. MEDIASTINUM: Unremarkable BONES: No acute osseous abnormality OTHER: Endotracheal tube 0.7 cm above the rogers. Nasogastric tube in the proximal stomach. ----- Bilateral lower extremity venous duplex IMPRESSION: No right or left femoropopliteal venous thrombosis. If clinical concern/symptoms persist or worsen, short-interval follow-up study is suggested. ------ PROCEDURE: MRI BRAIN HEAD WO CONTRAST IMPRESSION: 1. No evidence of acute infarction, intracranial hemorrhage, mass effect or hydrocephalus. No evidence of mesial temporal sclerosis. Pansinusitis. Prominent bilateral cervical lymph nodes. This can be further evaluated with ultrasound. ------ Date: 12/31/2024 08:42 AM Examination: XY KUB ABDOMEN SINGLE VIEW IMPRESSION: Nonobstructive bowel gas pattern. Moderate stool burden. ------- CTA Chest with intravenous contrast IMPRESSION: 1. Limited by motion and poor contrast opacification of the pulmonary arteries. No large central pulmonary embolism. 2. Trace bilateral pleural effusions with associated bibasilar consolidation. Clinical correlation and continued follow-up is recommended. --- CHEST RADIOGRAPH IMPRESSION: 1. No acute disease. Diminished lung volumes. ---- ECHO Conclusion Technically difficult study. Difficult acoustic windows. Undetermined rhythm. Mild concentric LVH with mild left atrial enlargement. Valves appear to be structurally normal. Left ventricular function is preserved at 60% with normal RV function. Dopplers unremarkable. No pericardial effusion masses or vegetations. ------ Attending Phy: AC GRIFFITH RESIDENT DATE OF SURGERY: 01/12/2025 PREOPERATIVE DIAGNOSIS: Ventilator-dependent respiratory failure. POSTOPERATIVE DIAGNOSIS: Ventilator-dependent respiratory failure. SURGEON: Nicholas Farris MD PROCEDURE: Tracheostomy. DESCRIPTION OF PROCEDURE: Under adequate anesthesia with the patient's skin prepped and draped, an anterior cervical incision was made. The patient's morbid obesity and extremely short neck stature made this operation very difficult. The incision was deepened with abundant subcutaneous fat down onto the fibers of the strap muscles, which were divided in the midline and retracted laterally using appendiceal retractors. The patient's pretracheal tissues were divided with electrocautery at this point as the patient was ventilated by room air to minimize the likelihood of an airway fire. The tracheotomy was fashioned and dilated. The trachea was held upward and forward by a tracheal hook. The tracheotomy was dilated to accommodate a size 8 tracheostomy tube. The 8 tracheostomy tube was then inserted as the anesthesiologist withdrew the endotracheal tube under direct vision. Reaching the final position, the tracheostomy was secured by insufflation of 7 mL of air into the cuff. Immediately upon reaching its final position, the tracheostomy resumed CO2 capture and preoperative level of ventilation. Two interrupted Prolene sutures, 2-0 in size were placed through the tracheostomy bridge as well as a circumferential umbilical tape to secure the tracheostomy. Two interrupted Prolene sutures were used for closure of the incision. The patient remained in unchanged clinical condition at the termination of the procedure. A chest x-ray was ordered and is pending at the time of this dictation. The patient was returned to the Intensive Care Unit on the same ventilator settings as preoperatively. His mother, Ngozi Perry was thoroughly informed at [phone]. MD KEEGAN Lee/KEVIN Condition at Discharge: Stable Final Diagnosis/Problems List # Acute toxic/metabolic encephalopathy with new-onset or breakthrough generalized seizures, likely multifactorial: # Medication nonadherence (valproic acid level 22.1, subtherapeutic) # Possible alcohol withdrawal # Substance abuse (notably nitrous oxide) # HTN # Sepsis secondary to aspiration pneumonia # Acute hypoxic respiratory failure secondary to status epilepticus, intubated on 12/18/2024. POA # Probable aspiration pneumonia with MSSA isolated in both blood and respiratory cultures. # Serratia and Citrobacter pneumonia # Pulmonary edema improved. # Bilateral pleural effusions noted on imaging. # Pulmonary embolism ruled out # Transaminitis-improving # Vitamin B12 deficiency # Constipation, likely slow transit, relieved by lactose,MiraLax& Colace # morbid obesity with a BMI 50.3 # hypernatremia, now improved # hypokalemia, now improved # hypomagnesemia #? Rhabdomyolysis-improving # microcytic anemia, mild # substance use disorder # ? foot drop Discharge Disposition: Longterm Facility Discharge Instruct/Medications Diet: Consistent carbohydrate, Cardiac 2g Na,low cholest Activity: No Restrictions, As Tolerated Follow Up/Referral: PCP Medications: Per SNF papers Scheduled Divalproex Sodium (Divalproex Sodium Dr), 1 TAB PO DAILY, (Reported) Escitalopram Oxalate (Escitalopram Oxalate), 1 TAB PO DAILY, (Reported) Lisinopril (Lisinopril), 10 MG PO DAILY, (Reported) Quetiapine Fumerate (Quetiapine Fumarate), 1 TAB PO DAILY, (Reported) Miscellaneous Medications Gabapentin (Gabapentin), PO, (Reported) Discharge Statement: "Patient was advised to return to the ER or call 911 if any headaches, dizziness, shortness of breath, chest pain, abdominal pain, bleeding, fevers, or worsening of medical condition. Patient was counseled about treatment plan, medications, possible side effects, patientverbalized understanding. All questions were answered to the best of my ability. This discharge took greater then 30 minutes in planning, reviewing documentation, counseling the patient, and discussing with other team members." ASSESSMENT ASSESSMENT Assessment # Acute toxic/metabolic encephalopathy with new-onset or breakthrough generalized seizures, likely multifactorial: # Medication nonadherence (valproic acid level 22.1, subtherapeutic) # Possible alcohol withdrawal # Substance abuse (notably nitrous oxide) # HTN # Sepsis secondary to aspiration pneumonia # Acute hypoxic respiratory failure secondary to status epilepticus, intubated on 12/18/2024. POA # Probable aspiration pneumonia with MSSA isolated in both blood and respiratory cultures. # Serratia and Citrobacter pneumonia # Pulmonary edema improved. # Bilateral pleural effusions noted on imaging. # Pulmonary embolism ruled out # Transaminitis-improving # Vitamin B12 deficiency # Constipation, likely slow transit, relieved by lactose,MiraLax& Colace # morbid obesity with a BMI 50.3 # hypernatremia, now improved # hypokalemia, now improved # hypomagnesemia #? Rhabdomyolysis-improving # microcytic anemia, mild # substance use disorder # ? foot drop AC GRIFFITH RESIDENT Jan 28, 2025 16:14
[2025-01-29] VITALS (30 sets, daily range): BP systolic 137–146; BP diastolic 78–95; PULSE 56–118; RESP 13–32; TEMP 98.2–99.6; O2SAT 94–100
[2025-01-29] MEDS: KETOROLAC TROMETH 30 MG/ML 1ML VIAL IV PRN (04:36)
[2025-01-29] MEDS ORDERED: LORazepam 2MG/ML-1ML VIAL IV PRN (04:45)
[2025-01-29] MEDS ORDERED: IBUPROFEN 400 MG TAB PO PRN (04:45)
[2025-01-29] MEDS ORDERED: ONDANSETRON HCL 4 MG/2 ML VIAL IV PRN (04:45)
[2025-01-29] MEDS: PANTOPRAZOLE 40 MG TAB PO SCH (06:20)
[2025-01-29] MEDS: IPRATROPIUM BROM 0.5 MG/2.5ML INH SOL NEB SCH (06:28)
[2025-01-29] MEDS: ALBUTEROL SULF 2.5 MG/0.5ML(0.5%) NEB SOLN NEB SCH (06:28)
[2025-01-29] MEDS: levoFLOXacin 500 MG TAB PO SCH (09:53)
[2025-01-29] MEDS: diphenhdrAMINE HCL 50 MG/1 ML VL IV PRN (09:54)
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
[2025-01-29] MEDS: ALBUTEROL SULF 2.5 MG/0.5ML(0.5%) NEB SOLN ONE (11:58)
[2025-01-29] MEDS: IPRATROPIUM BROM 0.5 MG/2.5ML INH SOL ONE (11:59)
[2025-01-30] VITALS (22 sets, daily range): BP systolic 125–150; BP diastolic 77–101; PULSE 60–126; RESP 15–31; TEMP 98.1–98.9; O2SAT 96–100
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
--- NOTE | 2025-01-30 19:25 | DVHPN2 ---
Progress Note - Dictate Date Seen: Jan 30, 2025 Medical Necessity Reason Pt with a Central, PICC or Fol: Yes The following are medically ne: PICC Line Subjective Mr. Perry is a 24 years old right-handed gentleman with a history of hypertension, pain syndrome, substance abuse, he was admitted to the [facility] on 12/17/2024 for new onset seizure activity. I have seen and examined the patient, discussed with his nurses. He is alert, fully oriented, no new complaint Blood culture, 12/25/2024: No growth Sputum culture, 12/25/2024: Staphylococcus aureus Urine culture, 01/04/2025: Urinalysis, 12/17/2024: Unremarkable Urine drug screening, 12/17/2024: Benzo Valproic acid, 12/17/2024: 22.1 Plasma alcohol, 12/17/2024: <3 ABG, 12/18/2024: Respiratory acidosis, 12/20/2024: Acidosis, 12/22/2024: Hypoxia, 12/24/2024: Hypoxia, carbon dioxide retention, 12/25/2024: Hypoxia, carbon dioxide retention, 12/29/2024: Hypoxia, carbon dioxide retention WBC/HB/PLT/MCV, 12/20/2024: 8/12.4/233/90.4 CMP 12/18/2024: Unremarkable TBI/AST/ALT/AP, 12/20/2024: 0.7/44/45/143 EEG, 12/19/2019 10/26/24 13:15: Normal EEG, 12/23/2024: Moderately abnormal EEG Bronchoscopy 01/12/25: There were copious blood tinged secretions in the airways bilaterally Chest x-ray 12/18/2024: Endotracheal tube 0.7 cm above the rogers. Nasogastric tube in the proximal stomach Chest x-ray, 12/27/2024: 1. Stable mild multifocal bilateral pulmonary airspace disease, most notably at the lung bases. 2. Lines and tubes unchanged Chest x-ray, 12/29/2024: 1. Stable cardiomegaly, bilateral pleural effusions and moderate diffuse increased prominence of the pulmonary vasculature. 2. Right basilar pulmonary airspace disease. 3. Interval retraction of endotracheal tube as above. Remaining lines and tubes unchanged Chest x-ray, : Lines and tubes in satisfactory position. No significant interval change. CT head, 12/17/2024: No evidence of acute intracranial abnormality. If symptoms persist, consider MRI for further evaluation MR head, 12/21/2024: No evidence of acute infarction, intracranial hemorrhage, mass effect or hydrocephalus. No evidence of mesial temporal sclerosis. Pansinusitis. Prominent bilateral cervical lymph nodes. This can be further evaluated with ultrasound vital signs Vital Sign Date Time Temp Pulse Resp B/P (MAP) Pulse Ox O2 Delivery O2 Flow Rate FiO2 01/30/25 18:00 92 31 100 01/30/25 16:00 98.8 98.8 01/30/25 12:55 Room Air* 0 21 Total Intake and Output 01/29/25 01/29/25 01/30/25 15:00 23:00 07:00 Intake Total 450 ml Output Total 800 ml 900 ml Balance -800 ml -450 ml medications Current Medications Medications Dose Ordered Sig/Rick Route Start Time Stop Time Status Last Admin Dose Admin Ketorolac Tromethamine 15 mg Q6HPRN PRN IV 01/29/25 04:30 02/03/25 04:29 01/30/25 15:09 15 MG Pantoprazole Sodium 40 mg DAILY@0600 PO 01/29/25 06:00 01/30/25 06:08 40 MG Lorazepam 1 mg Q5MINP PRN IV 01/29/25 04:45 Albuterol 2.5 mg Q6HR NEB 01/29/25 06:00 01/30/25 18:21 2.5 MG Ipratropium [place] 0.5 mg Q6HR NEB 01/29/25 06:00 01/30/25 18:21 0.5 MG Ondansetron HCl 4 mg Q6HPRN PRN IV 01/29/25 04:45 Diphenhydramine HCl 25 mg Q4HP PRN IV 01/29/25 04:45 01/30/25 15:10 25 MG Ibuprofen 400 mg Q6HP PRN PO 01/29/25 04:45 Levofloxacin 500 mg DAILY PO 01/29/25 10:00 01/30/25 09:25 500 MG Acetaminophen 650 mg Q6HP PRN PO 01/29/25 04:45 objective The patient is well-nourished and well-developed with no distress. The patient is status post tracheostomy, feeding tube insertion MENTAL STATUS: Subjective CRANIAL NERVES: Pupils are equal, round and reactive. There is conjugated eye movement. Sensorimotor examined in bilateral trigeminal distribution is unremarkable, no facial weakness SENSATION: Fine to pinprick and light touch MOTOR: Normal tone in the upper and lower extremity. Normal muscle bulk. No fasciculations. He moves the arms and legs REFLEXES: Deep tendon reflexes are symmetrical. No pathological reflexes. CEREBELLAR/COORDINATION: No ataxia GAIT/STATION: deferred laboratory and microbiology Laboratory Tests 01/28/25 05:25 Test 01/28/25 05:25 Range/Units Serum Glucose 94 74-106 mg/dL Problem List Come, resolved Metabolic encephalopathy Hypoxic encephalopathy Toxic encephalopathy ? Status epileptics New onset seizure, status epileptics Likely secondary to substance abuse ? Partial complex seizure ? Grand mal seizure The activity witnessed on 12/23/2024 was not typical to seizure, likely myoclonus Substance/NO abuse ? Depression Respiratory failure/hypoxia, status post tracheostomy Pneumonia ICU myopathy Assessment/Plan Monitoring Supportive treatment AMADOR care More recommendation per clinical course Neurology has no more offer, and will sign off, thank you for giving me the opportunity to take this pleasant gentleman This medical document was created using an electronic medical record system with Mophie computerized dictation system. Although this document has been carefully reviewed, there may still be some phonetic and typographical errors. These areas are purely typographical due to imperfections of the software programs, and do not reflect any compromise in the patient's medical care. Prognosis poor Dietary Evaluation Review Comments: 1) Continue TPN to meet at least 75% estimated needs 2) TF Vital High Protein @ 60ml/hr(goal) with current rate of propofol. TF at goal volume together with propofol provides 2471 kcal (100% eenrgy needs) & 126 gm protein (100% protein needs) 3) Monitor TPN tolerance, lab values, I/O, wt trend Expected Outcomes/Goals: To meet >75% estimated needs Fu 2-3 days Plan discussed with: Patient, Other BONNY PEREZ MD Jan 30, 2025 19:24
[2025-01-31] VITALS (15 sets, daily range): BP systolic 138–160; BP diastolic 81–95; PULSE 66–106; RESP 14–35; TEMP 97.8–98.9; O2SAT 96–100
[2025-01-31] MEDS: ACETAMINOPHEN 325 MG TAB PO PRN (09:01)
--- NOTE | 2025-01-31 17:17 | DVHPNRES ---
Progress Note Date Seen: Jan 31, 2025 Resident Creating Document: AC GRIFFITH RESIDENT Medical Necessity Reason Pt with a Central, PICC or Fol: Yes The following are medically ne: PICC Line Subjective Review of Systems Patient seen and examined at the bedside. No new complaints reported at this time. Overnight events reviewed. Pending discharge due to placement issue. Possible DC to home in next 24-48 hours. Discontinue PICC line. Patient reports: Feels better Objective vital signs Vital Sign Date Time Temp Pulse Resp B/P (MAP) Pulse Ox O2 Delivery O2 Flow Rate FiO2 01/31/25 16:00 98.4 82 21 147/81 (103) 97 98.4 01/31/25 11:46 Room Air 0.0 01/31/25 11:46 21 Total Intake and Output 01/30/25 01/30/25 01/31/25 15:00 23:00 07:00 Intake Total 500 ml 500 ml Output Total 800 ml 650 ml Balance -300 ml -150 ml medications Current Medications Medications Dose Ordered Sig/Rick Route Start Time Stop Time Status Last Admin Dose Admin Ketorolac Tromethamine 15 mg Q6HPRN PRN IV 01/29/25 04:30 02/03/25 04:29 01/31/25 15:11 15 MG Pantoprazole Sodium 40 mg DAILY@0600 PO 01/29/25 06:00 01/31/25 05:50 40 MG Lorazepam 1 mg Q5MINP PRN IV 01/29/25 04:45 Albuterol 2.5 mg Q6HR NEB 01/29/25 06:00 01/31/25 11:46 2.5 MG Ipratropium [place] 0.5 mg Q6HR NEB 01/29/25 06:00 01/31/25 11:46 0.5 MG Ondansetron HCl 4 mg Q6HPRN PRN IV 01/29/25 04:45 Diphenhydramine HCl 25 mg Q4HP PRN IV 01/29/25 04:45 01/31/25 15:11 25 MG Ibuprofen 400 mg Q6HP PRN PO 01/29/25 04:45 Levofloxacin 500 mg DAILY PO 01/29/25 10:00 01/31/25 09:44 500 MG Acetaminophen 650 mg Q6HP PRN PO 01/29/25 04:45 01/31/25 09:01 650 MG Examination Pt is lying on bed General Appearance: Alert, Oriented X3, Cooperative, Not in acute distress HEENT: Atraumatic, Mucous membranes moist/pink Respiratory: Clear to auscultation, Normal air movement, No added sounds, intact tracheostomy pathway, closing Cardiovascular: Regular rate, Normal S1, Normal S2, No murmurs Abdominal: Active bowel sounds, Soft, no distention, no tenderness Extremities: No edema, Normal pulses, No tenderness/swelling Skin: No Significant rash, except past surgical scars Neuro: Normal speech, sensorimotor deficits none Psych/Mental Status: Mental status NL, Mood NL Nurse was there as spring upholsterer during examination laboratory and microbiology Laboratory Tests 01/28/25 05:25 Test 01/28/25 05:25 Range/Units Serum Glucose 94 74-106 mg/dL Microbiology Date/Time Source Procedure Growth Status 01/18/25 19:20 Sputum Gram Stain - Final Complete 01/18/25 19:20 Respiratory Culture - Final Serratia marcescens Citrobacter koseri Complete 01/04/25 18:35 Blood Blood Culture - Final NO GROWTH AFTER 5 DAYS OF INCUBATION. Complete 01/04/25 17:00 Urine - [place] Urine Culture - Final Complete 12/25/24 15:20 Catheter Site Aerobic Culture - Final Staphylococcus epidermidis Complete Labs and/or images reviewed: Labs reviewed by me, Image(s) reviewed by me Problem List/Assessment/Plan Problem List/Assessment/Plan Neurology # Acute toxic/metabolic encephalopathy with new-onset or breakthrough generalized seizures, likely multifactorial: # Medication nonadherence (valproic acid level 22.1, subtherapeutic) # Possible alcohol withdrawal # Substance abuse (notably nitrous oxide) - Dc'd Fentanyl, Precedex - Versed stopped - IV levetiracetam 500 mg BID Dc'd - IV lorazepam PRN - Last seizure on 01/18/2025 - EEG: Largely unremarkable - Head CT & Brain MRI: No acute findings; MRI showed pansinusitis and prominent cervical lymphadenopathy - Supportive care: Received IV banana bags x2, thiamine, and folic acid Dc'd - Neurology is on board for ongoing evaluation Cardiovascular # HTN # Sepsis secondary to aspiration pneumonia - Abx Vancomycin Dc - Zosyn changed to rocephin 2g and changed to Levaquin 01/26 Respiratory # Acute hypoxic respiratory failure secondary to status epilepticus, intubated on 12/18/2024. # Probable aspiration pneumonia with MSSA isolated in both blood and respiratory cultures. # Serratia and Citrobacter pneumonia # Pulmonary edema improved. # Bilateral pleural effusions noted on imaging. # Pulmonary embolism ruled out (CT angiography ordered; no DVT on Doppler). -removed tracheostomy tube today 01/28/2020 - Receiving ipratropium and albuterol nebulizers. - CXR: Hypoinflated lungs with bibasilar atelectasis; 12/29 CXR showed stable cardiomegaly, bilateral effusions, and right basilar airspace disease., recent CXR showing improvement from the past changes - Antibiotics: IV Zosyn started 12/21, discontinued 01/09 - IV Vancomycin started 12/23, discontinued 01/15 - DC IV Lasix 40 mg - Therapeutic Lovenox initiated, later discontinued. - Repeat blood and sputum cultures confirmed MSSA. - Status post tracheostomy with size 8 tube placement. Currently on T-piece - Respiratory cultures ordered, Gram-negative rods, started on Zosyn -final respiratory culture showed Serratia and Citrobacter, Rocephin 2 g and changed to levaquin po GI # Transaminitis-improving # Peptic ulcer prophylaxis # Vitamin B12 deficiency # Constipation, likely slow transit, relieved by lactose,MiraLax& Colace -Pantoprazole 40 mg IV daily - negative hepatitis-B and hepatitis-C - repleted with 1000 mcg B12 - lactulose daily - KUB: Nonobstructive bowel gas pattern. Moderate stool burden. - diet is Vital AF 40 mL -through Dobbhoff tube placed -Dc'd # morbid obesity with a BMI 50.3 -nutritional counseling after extubation # Gregg catheter removed Nephrology # hypernatremia, now improved # hypokalemia, now improved # hypomagnesemia #? Rhabdomyolysis-improving - serum CK - monitor -keep potassium above 4 and magnesium above 2 -replete as needed, continuously monitor lab -avoid nephrotoxic agents ID # aspiration pneumonia # sepsis due to above # right IJ catheter tip (placed on 12/18/2024, removed on 12/24/2024) culture growing staph epidermidis - pancultures - IV Zosyn discontinued on 01/09 - IV Vancomycin started 12/23, discontinued 01/15 - Tylenol as needed for fever - s/p bronchoscopy x 2 - repeat blood cultures, repeat sputum cultures, showing staph aureus-started vanc and discontinued - 01/19-repeat sputum culture showed Gram-negative rods, added Zosyn on 01/20 -final respiratory culture showed Serratia and Citrobacter, Rocephin 2 g and changed to levaquin po Hem/onc # microcytic anemia, mild - monitor Psychiatry # substance use disorder - we will consider Psychiatry consult once patient is extubated MSK # ? foot drop DVT prophylaxis: On Lovenox 40 mg b.i.d. Nutrition: DC NG and started on mechanical soft. Lines Right PICC placed on 12/24/24 Drips -titrating down on sedation - Versed - Stopped 01/16 - fentanyl - DC on 01/16/2025 - propofol -stopped - Precedex-DC done 01/16/2025 Intubated on 12/18/2024 Bronchoscopy on 12/26/24 Repeat bronchoscopy on 12/28/2024 Gregg on 01/04/2025 Removed tracheostomy tube today 01/28/2020 Critical care time 43 minutes excluding procedure. Code status discussed greater than 29 minutes: Full CODE STATUS. Detailed discussion held with patient & mother Ms. Sabillon, addressed all concerns. Plan discussed with Dr. Iqbal and rn Plan discussed with: Patient My Orders My Orders Orders - AC GRIFFITH Procedure Category Date Status Time Basic Metabolic Panel LAB 01/31/25 Logged 16:46 Transfer Orders XFER 01/31/25 Transmitted 16:52 Dietary Evaluation Review Comments: 1) Continue TPN to meet at least 75% estimated needs 2) TF Vital High Protein @ 60ml/hr(goal) with current rate of propofol. TF at goal volume together with propofol provides 2471 kcal (100% eenrgy needs) & 126 gm protein (100% protein needs) 3) Monitor TPN tolerance, lab values, I/O, wt trend Expected Outcomes/Goals: To meet >75% estimated needs Fu 2-3 days Date of Service: Jan 31, 2025 Billing Provider: ANTHONY IQBAL MD Common Visit Codes: [id number] CARE 30-74 MIN AC GRIFFITH Jan 31, 2025 17:17 ANTHONY IQBAL MD Feb 01, 2025 14:27
[2025-01-31] MEDS ORDERED: IPRATROPIUM BROM 0.5 MG/2.5ML INH SOL ONE (18:13)
[2025-01-31] MEDS ORDERED: ALBUTEROL SULF 2.5 MG/0.5ML(0.5%) NEB SOLN ONE (18:13)
[2025-01-31 18:47] LABS: Anion Gap 12 (5-15); Carbon Dioxide 26 mmol/L (20-31); Chloride 103 mmol/L (98-107); Potassium 3.9 mmol/L (3.5-5.1); Sodium 141 mmol/L (136-145)
[2025-01-31 18:48] LABS: Calcium 9.5 mg/dL (8.7-10.4)
[2025-01-31 18:53] LABS: BUN/Creatinine Ratio 19.7 (10.0-20.0); Blood Urea Nitrogen 12 mg/dL (9-23)
[2025-01-31 18:54] LABS: Glucose 106 mg/dL (74-106)
[2025-02-01] VITALS (13 sets, daily range): BP systolic 132–168; BP diastolic 89–92; PULSE 70–98; RESP 12–22; TEMP 97.7–98.5; O2SAT 97–100
[2025-02-01] MEDS ORDERED: ALBUTEROL SULF 2.5 MG/0.5ML(0.5%) NEB SOLN ONE (00:08)
[2025-02-01] MEDS: diphenhdrAMINE HCL 50 MG/1 ML VL ONE (04:21)
[2025-02-01] MEDS ORDERED: IBUP-1454 PO (13:36)
[2025-02-01] MEDS ORDERED: PANT40T PO (13:36)
--- NOTE | 2025-02-01 15:36 | DVHPNRES ---
Progress Note Date Seen: Feb 01, 2025 Resident Creating Document: AC GRIFFITH RESIDENT Medical Necessity Reason Pt with a Central, PICC or Fol: Yes The following are medically ne: PICC Line Subjective Review of Systems Patient seen and examined at the bedside. No new complaints reported at this time. Overnight events reviewed. Pending discharge due to placement issue. Possible DC to home in next 24-48 hours. Patient reports: Feels better Objective vital signs Vital Sign Date Time Temp Pulse Resp B/P (MAP) Pulse Ox O2 Delivery O2 Flow Rate FiO2 02/01/25 12:00 98.4 98 18 135/92 (106) 97 98.4 02/01/25 11:17 Room Air 02/01/25 11:17 0 21 Total Intake and Output 01/31/25 01/31/25 02/01/25 15:00 23:00 07:00 Intake Total 1000 ml 500 ml Output Total 400 ml 800 ml Balance 600 ml -300 ml medications Current Medications Medications Dose Ordered Sig/Rick Route Start Time Stop Time Status Last Admin Dose Admin Ketorolac Tromethamine 15 mg Q6HPRN PRN IV 01/29/25 04:30 02/03/25 04:29 02/01/25 10:00 15 MG Pantoprazole Sodium 40 mg DAILY@0600 PO 01/29/25 06:00 02/01/25 06:01 40 MG Lorazepam 1 mg Q5MINP PRN IV 01/29/25 04:45 Albuterol 2.5 mg Q6HR NEB 01/29/25 06:00 02/01/25 11:17 2.5 MG Ipratropium [place] 0.5 mg Q6HR NEB 01/29/25 06:00 02/01/25 11:17 0.5 MG Ondansetron HCl 4 mg Q6HPRN PRN IV 01/29/25 04:45 Diphenhydramine HCl 25 mg Q4HP PRN IV 01/29/25 04:45 02/01/25 10:00 25 MG Ibuprofen 400 mg Q6HP PRN PO 01/29/25 04:45 Levofloxacin 500 mg DAILY PO 01/29/25 10:00 02/01/25 09:28 500 MG Acetaminophen 650 mg Q6HP PRN PO 01/29/25 04:45 01/31/25 09:01 650 MG Examination Pt is lying on bed General Appearance: Alert, Oriented X3, Cooperative, Not in acute distress HEENT: Atraumatic, Mucous membranes moist/pink Respiratory: Clear to auscultation, Normal air movement, No added sounds, intact tracheostomy pathway, closing Cardiovascular: Regular rate, Normal S1, Normal S2, No murmurs Abdominal: Active bowel sounds, Soft, no distention, no tenderness Extremities: No edema, Normal pulses, No tenderness/swelling Skin: No Significant rash, except past surgical scars Neuro: Normal speech, sensorimotor deficits none Psych/Mental Status: Mental status NL, Mood NL Nurse was there as admission specialist during examination laboratory and microbiology Laboratory Tests 01/31/25 18:17 01/28/25 05:25 Test 01/31/25 18:17 Range/Units Serum Glucose 106 74-106 mg/dL Microbiology Date/Time Source Procedure Growth Status 01/18/25 19:20 Sputum Gram Stain - Final Complete 01/18/25 19:20 Respiratory Culture - Final Serratia marcescens Citrobacter koseri Complete 01/04/25 18:35 Blood Blood Culture - Final NO GROWTH AFTER 5 DAYS OF INCUBATION. Complete 01/04/25 17:00 Urine - [place] Urine Culture - Final Complete 12/25/24 15:20 Catheter Site Aerobic Culture - Final Staphylococcus epidermidis Complete Labs and/or images reviewed: Labs reviewed by me, Image(s) reviewed by me Problem List/Assessment/Plan Problem List/Assessment/Plan Neurology # Acute toxic/metabolic encephalopathy with new-onset or breakthrough generalized seizures, likely multifactorial: # Medication nonadherence (valproic acid level 22.1, subtherapeutic) # Possible alcohol withdrawal # Substance abuse (notably nitrous oxide) - IV lorazepam PRN - Last seizure on 01/18/2025 - EEG: Largely unremarkable - Head CT & Brain MRI: No acute findings; MRI showed pansinusitis and prominent cervical lymphadenopathy Cardiovascular # HTN # Sepsis secondary to aspiration pneumonia - Abx Vancomycin Dc - Zosyn changed to rocephin 2g and changed to Levaquin 01/26 Respiratory # Acute hypoxic respiratory failure secondary to status epilepticus, intubated on 12/18/2024. # Probable aspiration pneumonia with MSSA isolated in both blood and respiratory cultures. # Serratia and Citrobacter pneumonia # Pulmonary edema improved. # Bilateral pleural effusions noted on imaging. # Pulmonary embolism ruled out (CT angiography ordered; no DVT on Doppler). - CXR: Hypoinflated lungs with bibasilar atelectasis; 12/29 CXR showed stable cardiomegaly, bilateral effusions, and right basilar airspace disease., recent CXR showing improvement from the past changes -final respiratory culture showed Serratia and Citrobacter, Rocephin 2 g and changed to levaquin po GI # Transaminitis-improving # Peptic ulcer prophylaxis # Vitamin B12 deficiency # Constipation, likely slow transit, relieved by lactose,MiraLax& Colace -Pantoprazole 40 mg IV daily - negative hepatitis-B and hepatitis-C - repleted with 1000 mcg B12 - lactulose daily - KUB: Nonobstructive bowel gas pattern. Moderate stool burden. # morbid obesity with a BMI 50.3 -nutritional counseling after extubation # Gregg catheter removed Nephrology # hypernatremia, now improved # hypokalemia, now improved # hypomagnesemia #? Rhabdomyolysis-improving - serum CK - monitor -keep potassium above 4 and magnesium above 2 -replete as needed, continuously monitor lab -avoid nephrotoxic agents ID # aspiration pneumonia # sepsis due to above # right IJ catheter tip (placed on 12/18/2024, removed on 12/24/2024) culture growing staph epidermidis -final respiratory culture showed Serratia and Citrobacter, Rocephin 2 g and changed to levaquin po Hem/onc # microcytic anemia, mild - monitor Psychiatry # substance use disorder - we will consider Psychiatry consult outpatient [facility] # ? foot drop DVT prophylaxis: On Lovenox 40 mg b.i.d. Nutrition: Regular diet. Lines Right PICC placed on 12/24/24 Removed tracheostomy tube 01/28/2020 Critical care time 43 minutes excluding procedure. Code status discussed greater than 29 minutes: Full CODE STATUS. Detailed discussion held with patient & mother Ms. Sabillon, addressed all concerns. Plan discussed with Dr. Tolentino and rn Plan discussed with: Patient, Other (mom) My Orders My Orders Orders - AC GRIFFITH RESIDENT Procedure Category Date Status Time Transfer Orders XFER 01/31/25 Transmitted 16:52 Communication Order ORDERS 01/31/25 Transmitted 17:17 Discharge DISCHARGE 02/01/25 Transmitted 13:34 Mrsa Screen BRENDA 02/01/25 In Process 14:36 Dietary Evaluation Review Comments: 1) Continue TPN to meet at least 75% estimated needs 2) TF Vital High Protein @ 60ml/hr(goal) with current rate of propofol. TF at goal volume together with propofol provides 2471 kcal (100% eenrgy needs) & 126 gm protein (100% protein needs) 3) Monitor TPN tolerance, lab values, I/O, wt trend Expected Outcomes/Goals: To meet >75% estimated needs Fu 2-3 days AC GRIFFITH RESIDENT Feb 01, 2025 15:35
[2025-02-01] MEDS ORDERED: LISINOPRIL 5 MG TAB PO ONE (16:00)
[2025-02-01] MEDS ORDERED: LISI10TA34 PO (16:16)
[2025-02-01] MEDS ORDERED: LISI-275 PO (16:26)
[2025-02-02] MEDS ORDERED: LISINOPRIL 5 MG TAB PO SCH (10:00)
== END 2025-02-01 17:02 | disposition home or self-care (01) | DRG 5 ==
LOC: EDBD 20:59 → ER 20:59 → OVERFLOW 23:57 → TELE-CENTR 12-18 02:38 → ICU WEST 12-18 20:27 → DOU IN ADS 01-23 14:23 → OVERFLOW 01-25 10:45 → DOU 01-25 10:51 → OVERFLOW 01-25 11:21 → DOU 01-25 11:32
PROVIDERS: ADMIT Internal Medicine; ATTEND Internal Medicine
PROC: 5A1955Z Respiratory Ventilation, Greater than 96 Consecutive Hours (ICD-10-PCS; principal; 2024-12-18)
PROC: 0BH17EZ Insertion of Endotracheal Airway into Trachea, Via Natural or Artificial Opening (ICD-10-PCS; 2024-12-18)
PROC: 02H633Z Insertion of Infusion Device into Right Atrium, Percutaneous Approach (ICD-10-PCS; 2024-12-18)
PROC: B548ZZA Ultrasonography of Superior Vena Cava, Guidance (ICD-10-PCS; 2024-12-18)
PROC: 02HV33Z Insertion of Infusion Device into Superior Vena Cava, Percutaneous Approach (ICD-10-PCS; 2024-12-24)
PROC: B548ZZA Ultrasonography of Superior Vena Cava, Guidance (ICD-10-PCS; 2024-12-24)
PROC: 0B9M8ZZ Drainage of Bilateral Lungs, Via Natural or Artificial Opening Endoscopic (ICD-10-PCS; 2024-12-26)
PROC: 0BJ08ZZ Inspection of Tracheobronchial Tree, Via Natural or Artificial Opening Endoscopic (ICD-10-PCS; 2024-12-28)
PROC: 0B110F4 Bypass Trachea to Cutaneous with Tracheostomy Device, Open Approach (ICD-10-PCS; 2025-01-12)
DX: A41.01 Sepsis due to Methicillin susceptible Staphylococcus aureus (principal); J69.0 Pneumonitis due to inhalation of food and vomit; G92.8 Other toxic encephalopathy; G40.411 Other generalized epilepsy and epileptic syndromes, intractable, with status epilepticus; J15.211 Pneumonia due to Methicillin susceptible Staphylococcus aureus; E87.0 Hyperosmolality and hypernatremia; J90 Pleural effusion, not elsewhere classified; G93.1 Anoxic brain damage, not elsewhere classified; E22.1 Hyperprolactinemia; Z20.822 Contact with and (suspected) exposure to COVID-19; F14.10 Cocaine abuse, uncomplicated; D50.9 Iron deficiency anemia, unspecified; J96.01 Acute respiratory failure with hypoxia; E66.01 Morbid (severe) obesity due to excess calories; I10 Essential (primary) hypertension; E87.6 Hypokalemia; F10.239 Alcohol dependence with withdrawal, unspecified; I95.2 Hypotension due to drugs; G89.29 Other chronic pain; F17.210 Nicotine dependence, cigarettes, uncomplicated; J98.11 Atelectasis; R74.01 Elevation of levels of liver transaminase levels; E53.8 Deficiency of other specified B group vitamins; K59.00 Constipation, unspecified; E83.42 Hypomagnesemia; M62.82 Rhabdomyolysis; F41.9 Anxiety disorder, unspecified; F31.9 Bipolar disorder, unspecified; T42.75XA Adverse effect of unspecified antiepileptic and sedative-hypnotic drugs, initial encounter; J15.8 Pneumonia due to other specified bacteria; Z82.49 Family history of ischemic heart disease and other diseases of the circulatory system; Z91.148 Patient's other noncompliance with medication regimen for other reason; Z68.43 Body mass index [BMI] 50.0-59.9, adult; Z99.11 Dependence on respirator [ventilator] status; Y90.0 Blood alcohol level of less than 20 mg/100 ml
CPT/HCPCS: 36415; 36556; 36569; 36600; 70450; 70551; 71045; 71275; 73600; 74018; 76937; 80048; 80053; 80164; 80202; 80307; 80320; 81001; 82040; 82247; 82550; 82565; 82607; 82746; 82805; 82962; 83605; 83615; 83735; 84100; 84132; 84146; 84478; 84484; 85007; 85025; 85027; 85610; 85730; 86703; 86803; 86850; 86900; 86901; 87040; 87070; 87077; 87081; 87086; 87186; 87205; 87340; 87426; 87804; 92610; 93005; 93306; 93970; 94002; 94003; 94640; 95819; 97110; 97116; 97163; 97530; A4605; G0378; J1100; J1815; J1885; J2250; J2405; J2470; J2543; J2704; J3480; J7060